=== PATIENT | female | born 1960 | race Caucasian/White ===

== ENCOUNTER → 2024-01-18 | Outpatient (CLI) | payer BC | END | disposition home or self-care (01) | LOC: LABPAT 15:57 | PROVIDERS: ATTEND Orthopaedic Surgery | DX: Z01.818 Encounter for other preprocedural examination (principal); M16.11 Unilateral primary osteoarthritis, right hip; Z22.322 Carrier or suspected carrier of Methicillin resistant Staphylococcus aureus; R94.31 Abnormal electrocardiogram [ECG] [EKG] | CPT/HCPCS: 87070; 93005 ==

== ENCOUNTER → 2024-01-31 | Outpatient (CLI) | payer BC ==
[2024-02-01 02:36] LABS: Basophils # (A) 0.12 X 10*3/uL (0.00-0.10); Basophils % (A) 0.7 %; Eosinophils % (A) 1.6 %; HCT 44.8 % (37.2-46.3); HGB 14.1 g/dL (12.0-15.0); Lymphocytes % (A) 21.2 %; MCH 30.8 pg (27.0-32.0); MCHC 31.5 g/dL (32.0-37.0); MCV 97.8 FL (80.0-97.0); Monocytes # (A) 1.07 X 10*3/uL (0.20-1.00); Monocytes % (A) 5.8 %; NRBC Per 100 WBC 0 X 10*3/uL (0.00-0.01); Neutrophils # (A) 12.94 X 10*3/uL (1.80-7.70); Neutrophils % (A) 70.3 %; Platelet Count 404 X 10*3/uL (140-440); RBC 4.58 X 10*6/uL (4.10-5.20); RDW 14.1 % (11.5-14.5)
== END | disposition home or self-care (01) ==
LOC: LABWHC1 16:05
PROVIDERS: ATTEND Nurse Practitioner Family
DX: D72.819 Decreased white blood cell count, unspecified (principal)
CPT/HCPCS: 36415; 85025

== ENCOUNTER → 2024-02-04 | Outpatient (CLI) | payer BC ==
[2024-02-04 15:16] LABS: HCT 47.9 % (37.2-46.3); HGB 15.5 g/dL (12.0-15.0); MCH 31.1 pg (27.0-32.0); MCHC 32.4 g/dL (32.0-37.0); Mean Platelet Volume 9.8 FL (9.5-12.2); NRBC Per 100 WBC 0 X 10*3/uL (0.00-0.01); Platelet Count 379 X 10*3/uL (140-440); RBC 4.99 X 10*6/uL (4.10-5.20); RDW 13.8 % (11.5-14.5); WBC 11.91 X 10*3/uL (4.50-10.00)
[2024-02-04 15:17] LABS: Basophils # (A) 0.08 X 10*3/uL (0.00-0.10); Basophils % (A) 0.7 %; Eosinophils # (A) 0.24 X 10*3/uL (0.04-0.35); Lymphocytes # (A) 2.66 X 10*3/uL (0.90-5.00); Lymphocytes % (A) 22.3 %; Monocytes # (A) 0.83 X 10*3/uL (0.20-1.00); Neutrophils # (A) 8.05 X 10*3/uL (1.80-7.70); Neutrophils % (A) 67.6 %
== END | disposition home or self-care (01) ==
LOC: LABPAT 11:09
PROVIDERS: ATTEND Orthopaedic Surgery
DX: Z01.812 Encounter for preprocedural laboratory examination (principal); M16.11 Unilateral primary osteoarthritis, right hip; D72.829 Elevated white blood cell count, unspecified
CPT/HCPCS: 85025; 86850; 86900; 86901

== ENCOUNTER 2024-02-08 10:55 | Day surgery (SDC) | payer BC ==
--- NOTE | 2024-02-07 08:17 | P.HPOR ---
History of Present Illness H&P Date: 02/07/24 Chief Complaint: Right hip pain The patient is a 63-year-old retired female presents with progressive right hip pain for the past 3 years. She has groin and thigh pain worse with weightbearing activities. She is having night symptoms. She tried medications in addition to a previous injection without much relief. She notes daily pain that limits her normal function and activities. Review of Systems As per HPI Past Medical History Past Medical History: GERD/Reflux, Osteoarthritis (OA), Skin Disorder Additional Past Medical History / Comment(s): hiatal hernia, IBS, lactose i ntolerant, psoriatic and oseoarthritis, psoriasis - no current areas, plastic prosthesis inside Rt. ear History of Any Multi-Drug Resistant Organisms: None Reported Past Surgical History: Cholecystectomy, Ear Surgery, Orthopedic Surgery, Tubal Ligation Additional Past Surgical History / Comment(s): plastic prosthesis Rt. 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 carotid, bilat. knee arthroscopy, ovarian cyst removal laproscopic, bone spur removal Lt. foot, EGD/colonoscopy Past Anesthesia/Blood Transfusion Reactions: Postoperative Nausea & Vomiting (PONV) Smoking Status: Former smoker - Past Family History Mother Family Medical History: COPD, Coronary Artery Disease (CAD) Additional Family Medical History / Comment(s): age 54 Medications and Allergies Home Medications Medication Instructions Recorded Confirmed Type Acetaminophen Tab [Tylenol Tab] 1,000 mg PO Q6HR PRN 02/04/24 02/04/24 History Albuterol Inhaler [Ventolin Hfa 1 inh INHALATION Q4H PRN 02/04/24 02/04/24 History Inhaler] Amitriptyline HCl 25 mg PO HS 02/04/24 02/04/24 History Cetirizine HCl 10 mg PO HS 02/04/24 02/04/24 History Omeprazole 20 mg PO QAM 02/04/24 02/04/24 History predniSONE 5 mg PO DAILY 02/04/24 02/04/24 History traMADol HCL 100 mg PO BID 02/04/24 02/04/24 History Allergies Allergy/AdvReac Type Severity Reaction Status Date / Time nickel Allergy Rash/Hives Verified 02/04/24 14:54 NSAIDS (Non-Steroidal AdvReac Unknown Verified 02/04/24 14:54 Anti-Inflamma Physical Examination - Hip right Gait: antalgic Tenderness with palpation: anterior Pain with motion: internal rotation and hip flexion ROM: flexion: 70 degrees ROM: internal rotation: 10 degrees (With pain) ROM: external rotation: 50 degrees Crepitus with motion: Yes Strength: flexion: 5/5 Strength: abduction: 5/5 Tests: impingement tests: positive Results Patient is a well-developed well-nourished female approximately 5 foot 7, 195 pounds of endomorphic Diehl. HEENT exam is nonfocal, neck is supple. She has painful passive motion of the right hip. Straight leg raise is negative. Clinically she has 1 cm of shortening of the right lower extremity compared to the left. Her distal neurovascular appears intact in the right lower extremity. She has an antalgic gait pattern. - Diagnostic results Hip x-ray: image reviewed (2 views of the right hip obtain the office show severe osteoarthrosis with [id number] changes along with subchondral sclerosis.) Assessment and Plan Assessment: Right hip severe osteoarthrosis Plan: I talked to the patient at length regarding her condition along with treatment options. At this point she is quite symptomatic and limited because of pain and stiffness related to her right hip osteoarthrosis despite conservative measures. After a thorough discussion she opts to proceed with surgery. We'll plan to p marbella with right total hip arthroplasty utilizing an anterior approach. Risks and benefits were discussed at length in layman's terms. We will institute DVT prophylaxis postoperatively.
[~2024-02-08 10:55] MED LIST: LIDOCAINE 1% (10MG/ML) FOR IV START INTRADERMA PRN; MELOXICAM 7.5 MG TAB PO PRN; TRANEXAMIC 1,000 MG/100ML-NACL 1,000 MG in SALINE 1 100ML.BAG IVPB PRN
[2024-02-08 11:37] LABS: Glucose,Whole Blood 104 mg/dL (70-110)
[2024-02-08] MEDS: ACETAMINOPHEN TAB 500 MG TAB PO PRN (11:40)
[2024-02-08] MEDS: LACTATED RINGERS 1,000 ML IV SCH (11:40)
[2024-02-08] MEDS: ONDANSETRON 4 MG/2 ML VIAL IVP ONE (11:40)
[2024-02-08] MEDS: IV FLUID CONTINUATION 1,000 ML IV ONE (11:40)
[2024-02-08] MEDS: DEXAMETHASONE SOD PHOSPHATE 4 MG/ML 1 ML VIAL IVP STA (11:41)
[2024-02-08] MEDS: MIDAZOLAM 2 MG/2 ML VIAL IV ONE (11:58)
[2024-02-08] MEDS: fentaNYL (PF) 50 MCG/ML 2 ML AMP IVP ONE (11:58)
--- NOTE | 2024-02-08 12:17 | P.ANPRN ---
Procedure Note - Anesthesia - Nerve Block Performed Right John Single Time Out Performed: Yes ([id number]) Date of Procedure: 02/08/24 Procedure Start Time: 11:59 Procedure Stop Time: 12:04 Location of Patient: PreOp Indication: Acute Post-Operative Pain, Requested by Surgeon Specifically requested for management of pain by DrConor: Tejinder Washington Sedation Type: Sedate with meaningful contact maintained Preparation: Sterile Prep Position: Supine Catheter: None Needle Types: Pajunk Needle Gauge: 21 Ultrasound used to visualize needle placement: Yes Ultrasound used to observe medication spread: Yes Injectate: 0.5% Ropivacaine (see comment for volume) (30cc) Blood Aspirated: No Pain Paresthesia on Injection Noted: No Resistance on Injection: Normal Image Stored and Saved: Yes Events: Uneventful and Well Tolerated
[2024-02-08] MEDS ORDERED: fentaNYL (PF) 50 MCG/ML 2 ML AMP ONE (12:42)
[2024-02-08] MEDS ORDERED: PROPOFOL 10 MG/ML 20 ML VIAL IV ONE (12:42)
[2024-02-08] MEDS ORDERED: ROPIVACAINE 5 MG/ML 30 ML VIAL ONE (12:42)
[2024-02-08] MEDS ORDERED: KETAMINE HCL IN 0.9 % NACL 50 MG/5 ML SYRINGE ONE (12:42)
[2024-02-08] MEDS ORDERED: TRANEXAMIC 1,000 MG/100ML-NACL PREMIX BAG ONE (12:42)
[2024-02-08] MEDS ORDERED: MIDAZOLAM 2 MG/2 ML VIAL ONE (12:42)
[2024-02-08] MEDS: ceFAZolin 1,000 MG in SODIUM CHLORIDE 0.9% 1,000 ML IRRIGATION ONE (13:16)
[2024-02-08] MEDS: LACTATED RINGERS 1,000 ML IV ONE (13:42)
--- NOTE | 2024-02-08 14:55 | FL ---
EXAMINATION TYPE: FL guidance operating room DATE OF EXAM: 02/08/2024 HISTORY: Fluoroscopy time Total dose area product (DAP) in uGy*m?, mGy*cm? (or similar): 3.6896 IMPRESSION: 1. Fluoroscopy time.
--- NOTE | 2024-02-08 14:56 | XR ---
EXAMINATION TYPE: XR Hip Limited RT DATE OF EXAM: 02/08/2024 COMPARISON: NONE HISTORY: Postop TECHNIQUE: 3 view submitted. FINDINGS: There is postsurgical change compatible hip replacement surgery. IMPRESSION: 1. Postoperative change.
[2024-02-08] MEDS ORDERED: HYDROcodone/APAP 5-325MG 1 EACH TAB PO PRN (15:01)
[2024-02-08] MEDS ORDERED: NALOXONE 0.4 MG/ML 1 ML VIAL IV PRN (15:01)
[2024-02-08] MEDS ORDERED: HYDROmorphone 0.5 MG/0.5 ML SYRINGE IVP PRN (15:01)
[2024-02-08] MEDS ORDERED: MAGNESIUM HYDROXIDE 2,400 MG/30 ML CUP PO PRN (15:01)
[2024-02-08] MEDS: HYDROmorphone 0.5 MG/0.5 ML SYRINGE IVP PRN (15:06)
--- NOTE | 2024-02-08 15:08 | P.OP ---
Date of Procedure: 02/08/24 Preoperative Diagnosis: Right hip severe osteoarthrosis Postoperative Diagnosis: Same Procedure(s) Performed: Right total hip arthroplastyanterior approachpress-fit Implants: [employer] size 2 lateral press-fit Polar femoral stem, 36+0 Oxinium femoral head, 50 mm acetabular shell with neutral polyethylene liner. Anesthesia: spinal Surgeon: Tejinder Washington Breakfast Manager #1: Pk Thapa Estimated Blood Loss (ml): 50 Pathology: none sent Condition: stable Disposition: PACU Indications for Procedure: The patient is a 63-year-old female who presents with progressive right hip pain secondary to osteoarthrosis despite conservative measures. A discussion of the risks and benefits of operative intervention versus continued conservative measures made with the patient. She opted proceed with surgery. Operative risks include infection, neurovascular injury, development of blood clots, fracture, leg length discrepancy, possible instability, possible component loosening/failure and possible need for subsequent procedures was discussed. Informed consent was obtained. Operative Findings: As below Description of Procedure: The patient was brought to the operating room, and after induction of spinal anesthesia was placed supine on the Donna table. Positioning was checked with fluoroscopy. The right hip was then prepped and draped in a normal fashion. A 12 cm incision was then made starting 2 fingerbreadths distal and 3 finger breaths posterior to the ASIS in line with the proximal femur. The skin was incised sharply. Subcutaneous tissues were divided sharply. Electrocautery was used for hemostasis. The fascia was split in line with skin incision. The interval between the sartorius and tensor fascia mariajose was then bluntly developed. The posterior fascia was opened with electrocautery. The lateral circumflex vessels were identified and cauterized prior to sectioning. A retractor was placed along the superior femoral neck as well as the anterior acetabular rim. A wide capsulotomy was performed. The neck cut was then made at a 45 angle to the shaft approximately 1 1/2 cm above the level of the lesser trochanter. The head was extracted. Attention was then paid towards preparing the acetabular. Anterior and posterior retractors were placed. The remaining capsular labral tissue sharply debrided clearly defining the acetabular margins. I began reaming with a 47 mm reamer taking care to initially medialize then reaming at 45 of abduction and 20 of anteversion. Sequential reaming is performed up to 50 mm. A trial 50 mm acetabular shell was inserted in the same orientation and was fully seated. There was good rim fit and stability. Positioning was checked with fluoroscopy. The final 50 mm acetabular shell was inserted again at 45 of abduction and 20 of anteversion. This was fully seated. There was good rim fit and stability. Again fluoroscopy was used to check the adequacy of placement. A neutral polyethylene liner was gently impacted. Care was taken to avoid any soft tissue interposition. Pulsatile lavage was utilized. Attention was then paid towards preparing the proximal femur. The central region was cleared of soft tissue. A canal finder was used to find the femoral canal. Sequential broaching was performed up to size 2 taking care to lateralize proximally. A calcar mill was used to fashion the medial calcar. There was good rotational stability. A lateral neck along with a 32 mm +0 head was placed. The hip was gently reduced. Fluoroscopy was used to check the adequacy of positioning along with leg lengths. I felt both were good. The hip was gently dislocated. The trial components were removed. The final size 2 collared lateral press-fit femoral stem was inserted parallel to the posterior cortex. This was fully seated and there was good rotational stability. A 32 mm +0 femoral head was placed. This was gently impacted. The hip was then gently reduced. Final fluoroscopic view showed adequate placement implant along with baptist of leg length. Stability was checked with 80 of external rotation and 60 of extension of the right hip. The wound was irrigated with sterile lavage. The fascia was closed with running 0 Vicryl suture. There was minimal drainage therefore a deep drain was not placed. The second dose of IV TXA was given. The subcutaneous tissues were reapproximated interrupted 2-0 Vicryl sutures. The skin was reapproximated with 3-0 subcuticular strata fix suture. Skin tape and adhesive was applied. A sterile dressing was applied. The patient was then awoken from sedation and transferred to recovery room in good condition. Blood loss was estimated at 250 mL. No complications were incurred. Sponge and needle counts were correct at the end of the case. Pk CRUZ assisted during the major components is case to include exposure, bone resection, implantation, and closure.
--- NOTE | 2024-02-08 15:25 | XR ---
EXAMINATION TYPE: XR Hip Limited RT DATE OF EXAM: 02/08/2024 COMPARISON: NONE HISTORY: Postop TECHNIQUE: One view submitted. FINDINGS: There is postsurgical change compatible hip replacement surgery. IMPRESSION: 1. Postoperative change.
[2024-02-08] MEDS ORDERED: ALBUTEROL HFA INHALER INHALATION PRN (16:51)
--- NOTE | 2024-02-08 16:52 | P.CONS ---
History of Present Illness - Reason for Consult Consult date: 02/08/24 Medical Management Requesting physician: Tejinder Washington - History of Present Illness History of Presenting Illness: Patient is a pleasant 63-year-old female with a past medical history of GERD, Warthin's tumor status post removal of left parotid and osteoarthritis. She is currently admitted under orthopedic surgery team status post elective right total hip arthroplasty. Surgical procedure was completed by Dr. Washington. We were consulted for medical management throughout hospitalization. Patient seen and fully evaluated at bedside in room 455 upon completion of surgical procedure. Patient currently reports controlled postoperative pain and denies having any nausea or vomiting. She denies having any other complaints including headache, lightheadedness, dizziness, chest pain, palpitations, shortness of breath, or experiencing any numbness/tingling/weakness. Patient does report having muscle spasms in the right thigh. Review of systems: Pertinent positives and negatives as discussed in HPI, a complete review of systems was performed and all other systems are negative. Physical exam: Vital signs reviewed and stable. General: Nontoxic, no distress and appears stated age. Derm: Skin warm and dry, normal coloration for ethnicity. Head: Atraumatic, normocephalic and symmetric. Eyes: EOMs intact, no lid lag, and anicteric sclera Mouth: no lip lesions, mucus membranes moist Cardiovascular: regular rate and rhythm with normal S1S2, no murmur, positive posterior tibial pulses bilaterally, and cap refill < 2 seconds. Lungs: Respirations even, regular, and unlabored on room air. Lungs CTA bilaterally, no rhonchi, no rales, no wheezing, and no accessory muscle usage. Abdominal: soft, nontender to palpation, no guarding, no appreciable organomega ly Ext: Movement and sensation intact. No gross muscle atrophy, no edema, no contractures Neuro: Speech clear, face symmetrical and CN II-XII grossly intact with no noted focal neuro deficits Psych: Alert and oriented to person, place, time, and situation. Appropriate and pleasant affect. Assessment and Plan of Care: Postoperative pain/muscle spasms Order placed for Norflex 60 mg IVP x 1 dose. Status post right total hip arthroplasty Management per primary admitting orthopedic surgery team including DVT prophylaxis, pain management, wound/dressing management, weightbearing, and PT/OT. GERD Continue daily medication regimen with omeprazole 20 mg daily. Data and imaging reviewed Reviewed operative report. Reviewed preoperative labs completed 02/04/2024 showing a WBC count of 11.91, hemoglobin 15.5, platelet count of 379,000. Vital signs reviewed and stable. Blood pressure 139/78, heart rate 71, respiratory rate 14, and SpO2 of 90% on 2 L. Thank you for allowing us to participate in the care of this pleasant patient. Do not hesitate to contact us with questions. Someone can be reached from the [facility] hospitalist group all hours of the day at [phone] or via [employer]. Patient was seen independently by Nurse Practitioner. This document was prepared using [employer] dictation software. Please allow for errors in ict development manager while rare they do occur. Past Medical History Past Medical History: GERD/Reflux, Osteoarthritis (OA), Skin Disorder Additional Past Medical History / Comment(s): hiatal hernia, IBS, lactose intolerant, psoriatic and oseoarthritis, psoriasis - no current areas, plastic prosthesis inside Rt. ear History of Any Multi-Drug Resistant Organisms: None Reported Past Surgical History: Cholecystectomy, Ear Surgery, Orthopedic Surgery, Tubal Ligation Additional Past Surgical History / Comment(s): plastic prosthesis Rt. 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 carotid, bilat. knee arthroscopy, ovarian cyst removal laproscopic, bone spur removal Lt. foot, EGD/colonoscopy Past Anesthesia/Blood Transfusion Reactions: Postoperative Nausea & Vomiting (PONV) Smoking Status: Former smoker - Past Family History Mother Family Medical History: COPD, Coronary Artery Disease (CAD) Additional Family Medical History / Comment(s): age 54 Medications and Allergies Home Medications Medication Instructions Recorded Confirmed Type Acetaminophen Tab [Tylenol Tab] 1,000 mg PO Q6HR PRN 02/04/24 02/08/24 History Albuterol Inhaler [Ventolin Hfa 1 inh INHALATION Q4H PRN 02/04/24 02/08/24 History Inhaler] Amitriptyline HCl 25 mg PO HS 02/04/24 02/08/24 History Cetirizine HCl 10 mg PO HS 02/04/24 02/08/24 History Omeprazole 20 mg PO QAM 02/04/24 02/08/24 History predniSONE 5 mg PO DAILY 02/04/24 02/08/24 History traMADol HCL 100 mg PO BID 02/04/24 02/08/24 History Allergies Allergy/AdvReac Type Severity Reaction Status Date / Time nickel Allergy Rash/Hives Verified 02/08/24 11:25 NSAIDS (Non-Steroidal AdvReac Unknown Verified 02/08/24 11:25 Anti-Inflamma Physical Exam Vitals: Vital Signs Temp Pulse Resp BP Pulse Ox 02/08/24 16:15 71 14 139/78 98 02/08/24 16:00 75 14 124/60 97 02/08/24 15:45 77 14 124/60 98 02/08/24 15:30 77 14 111/68 98 02/08/24 15:15 76 14 122/75 100 02/08/24 15:00 97.2 F L 78 12 113/64 95 02/08/24 12:06 79 14 106/55 94 L 02/08/24 11:37 97.7 F 101 H 16 165/73 94 L Intake and Output 02/08/24 02/08/24 02/08/24 06:59 14:59 22:59 Intake Total 1051 200 Output Total 250 Balance 801 200 Intake: IV 1051 200 Output: Estimated Blood Loss 250 Other: Weight 85.5 kg
[2024-02-08] MEDS: ORPHENADRINE 30 MG/ML 2 ML VIAL IVP STA (17:11)
[2024-02-08] MEDS: HYDROmorphone 1 MG/ML 1 ML SYRINGE IVP PRN (18:12)
[2024-02-08] MEDS: LORATADINE 10 MG TAB PO SCH (20:45)
[2024-02-08] MEDS: HYDROcodone/APAP 7.5-325MG 1 EACH TAB PO PRN (20:47)
[2024-02-08] MEDS: AMITRIPTYLINE HCL 25 MG TAB PO SCH (20:47)
[2024-02-08] MEDS: SENNOSIDES-DOCUSATE SODIUM 1 EACH TAB PO SCH (20:47)
[2024-02-08] MEDS: CYCLOBENZAPRINE 5 MG TAB PO PRN (23:31)
[2024-02-09 07:47] VITALS: BP 114/62; PULSE 74; RESP 19; TEMP 98.2
[2024-02-09] MEDS: PANTOPRAZOLE 40 MG TABLET PO SCH (08:28)
[2024-02-09] MEDS: RIVAROXABAN 10 MG TAB PO SCH (08:28)
[2024-02-09 10:36] LABS: HGB 11.6 g/dL (12.0-15.0); MCH 30.5 pg (27.0-32.0); MCHC 32.2 g/dL (32.0-37.0); MCV 94.7 FL (80.0-97.0); Mean Platelet Volume 9.8 FL (9.5-12.2); NRBC Per 100 WBC 0 X 10*3/uL (0.00-0.01); Platelet Count 408 X 10*3/uL (140-440); RDW 13.7 % (11.5-14.5); WBC 21.29 X 10*3/uL (4.50-10.00)
[2024-02-09 10:37] LABS: Basophils # (A) 0.06 X 10*3/uL (0.00-0.10); Basophils % (A) 0.3 %; Eosinophils # (A) 0.04 X 10*3/uL (0.04-0.35); Eosinophils % (A) 0.2 %; Lymphocytes # (A) 2.95 X 10*3/uL (0.90-5.00); Lymphocytes % (A) 13.9 %; Monocytes # (A) 1.27 X 10*3/uL (0.20-1.00); Neutrophils # (A) 16.82 X 10*3/uL (1.80-7.70); Neutrophils % (A) 78.9 %
--- NOTE | 2024-02-09 11:20 | P.DS ---
Providers Date of admission: 02/08/2024 Expected date of discharge: 02/09/24 Attending physician: Tejinder Washington Consults: 02/08/24 15:01 Consult Physician Routine Consulting Provider: Aldo Guthrie Consult Reason/Comments: s/p direct anterior right total hip arthroplasty Do you want consulting provider notified?: Yes Primary care physician: Sosa [facility] Course: Date of admission: 02/08/2024 Date of discharge: 02/09/2024 Admission diagnosis: Right hip osteoarthritis Discharge diagnosis: Same Attending physician: Dr. Washington Surgical procedures: Direct anterior right al hip arthroplasty Brief history: Patient is a 63-year-old female with a history of progressive primary right hip osteoarthritis. At this point patient has failed conservative treatment measures and has opted to proceed with a elective direct anterior right total hip arthroplasty. Hospital course: Details of patient's surgery can be found in operative report. Patient tolerated the procedure well and was subsequently transported to orthopedic floor. Patient's orthopeidc and medical care was provided daily. Patient had daily laboratory tests performed for evaluation of overall blood counts. Patient had daily physical therapy to include strengthening range of motion as well as education with walker ambulation. Patient was treated with Xarelto for their postoperative DVT prophylaxis during their inpatient stay. Patient was noted to have a relatively uneventful postoperative course. Patient reported satisfactory pain control with oral pain medications by postoperative day 1. Patient showed satisfactory progress with physical therapy. Patient moved steadily through the program and had no difficulty meeting the goals by postoperative day 1. Given patient's otherwise satisfactory course and having met physical therapy goals, plan is to discharge patient home with health services on postoperative day 1. Discharge condition/disposition: Patient will be discharged home with health services in stable condition. Discharge medications: Instructions are given on resumption of patient's normal daily medications per primary care recommendation, in addition patient will be prescribed Bourg; senna; Eliquis 2.5 mg twice a day 2 weeks; Flexeril Discharge instructions: 1. Wound care and infection precautions, keep incision dry and covered while showering, no lotions, creams, moisturizers. No soaking, tubs, pools, hottubs. Do not scrub over the incision. 2. Weight-bear as tolerated with walker / cane until follow-up. 3. Ice and elevate when necessary. Do not exceed 20 minutes per hour with ice pack. 4. Utilize compression sleeve until seen at first follow up appointment. 5. Visiting nursing care. 6. Home physical therapy. 7. Pain meds and anticoagulants per prescription. 8. Pain medication has potential to cause constipation. Increase oral fluid and fiber intake. Contact primary care provider if you have not had a bowel movement within 48 hours after discharge 9. No anti-inflammatory medication until discussed at first post operative visit, this including Motrin, Aleve, Mobic, Diclofenac. 10. Follow up in office at 2 weeks postop with Clint Mtz PA-C / Pk Thapa PA-C 11. Follow up with your primary care doctor 7-10 days after discharge. 12. Contact [facility] with any questions, . Assessment: Right hip osteoarthritis Procedures: Direct anterior right total hip arthroplasty Patient Condition at Discharge: Good Plan - Discharge Summary Discharge Rx Participant: No New Discharge Prescriptions: New Apixaban [Eliquis] 2.5 mg PO BID #60 tab Cyclobenzaprine [Flexeril] 5 mg PO TID #21 tablet HYDROcodone/APAP 7.5-325MG [Bourg 7.5-325] 1 - 2 tab PO Q6HR PRN #32 tab PRN Reason: Pain Sennosides/Docusate Sodium [Senna Plus 8.6-50 mg Softgel] 1 each PO DAILY #20 capsule No Action predniSONE 5 mg PO DAILY Omeprazole 20 mg PO QAM Amitriptyline HCl 25 mg PO HS Albuterol Inhaler [Ventolin Hfa Inhaler] 1 inh INHALATION Q4H PRN PRN Reason: Wheezing traMADol HCL 100 mg PO BID Cetirizine HCl 10 mg PO HS Acetaminophen Tab [Tylenol Tab] 1,000 mg PO Q6HR PRN PRN Reason: Pain Discharge Medication List Acetaminophen Tab [Tylenol Tab] 1,000 mg PO Q6HR PRN 02/04/24 [History] Albuterol Inhaler [Ventolin Hfa Inhaler] 1 inh INHALATION Q4H PRN 02/04/24 [History] Amitriptyline HCl 25 mg PO HS 02/04/24 [History] Cetirizine HCl 10 mg PO HS 02/04/24 [History] Omeprazole 20 mg PO QAM 02/04/24 [History] predniSONE 5 mg PO DAILY 02/04/24 [History] traMADol HCL 100 mg PO BID 02/04/24 [History] Apixaban [Eliquis] 2.5 mg PO BID #60 tab 02/09/24 [Rx] Cyclobenzaprine [Flexeril] 5 mg PO TID #21 tablet 02/09/24 [Rx] HYDROcodone/APAP 7.5-325MG [Bourg 7.5-325] 1 - 2 tab PO Q6HR PRN #32 tab 02/09/24 [Rx] Sennosides/Docusate Sodium [Senna Plus 8.6-50 mg Softgel] 1 each PO DAILY #20 capsule 02/09/24 [Rx] Follow up Appointment(s)/Referral(s): Pk Thapa PAC [PHYSICIAN EXPLOSIVE OPERATOR FUSE] - 02/24/24 8:50 am [facility], [NON-STAFF] - 1-2 Days ([facility] will call you to schedule your in home physical therapy and nursing visits. ) Patient Instructions/Handouts: Anterior Hip Replacement (DC), Anterior Hip Replacement (GEN) Activity/Diet/Wound Care/Special Instructions: Orthopedic Discharge Instructions: 1. Wound care and infection precautions, keep incision dry and covered while showering, no lotions, creams, moisturizers. No soaking, pools, hot tubs. Do not scrub over incision. 2. Weight-bear as tolerated with walker / cane until follow-up. 3. Ice and elevate when necessary. Do not exceed 20 minutes per hour with ice pack. 4. Utilize compression sleeve until seen at first follow up appointment. 5. Pain meds and anticoagulants per prescription. 6. Pain medication has potential to cause constipation. Increase oral fluid and fiber intake. Contact primary care provider if you have not had a bowel movement within 48 hours after discharge. 7. No anti-inflammatory medication until discussed at first post operative visit, this including Motrin, Aleve, Mobic, Diclofenac. 8. Follow up in office at 2 weeks postop with Clint Mtz PA-C / Pk Thapa PA-C 9. Follow up with your primary care doctor 7-10 days after discharge. 10. Contact [facility] with any questions, . Keep incision clean, dry, intact. While showering, cover fusion tape with Saran wrap. Keep fusion tape on until follow-up appointment in office in 2 weeks Discharge Disposition: HOME WITH HOME HEALTH SERVICES
--- NOTE | 2024-02-09 11:28 | P.PN ---
Subjective Progress Note Date: 02/09/24 Principal diagnosis: Right hip osteoarthritis Patient seen at bedside this morning lying semirecumbent position with dressing present over right hip. was present during, or. Patient says overnight she walked down the hallway couple times and did walk out the hallway this morning with therapy and up-and-down stairs. Patient says she does need a walker with wheels for home. Patient states she does have a few steps going into her home. Patient says she has urinated since surgery yesterday without issue. She has not had bowel movement yet, but she has been passing gas. Patient denies chest pain, fever shortness breath, nausea, vomiting, change in vision, loss of bowel/bladder control. Objective - Vital Signs Vital signs: Vital Signs Temp 98.2 F 02/09/24 07:00 Pulse 74 02/09/24 07:00 Resp 19 02/09/24 07:00 BP 114/62 02/09/24 07:00 Pulse Ox 95 02/09/24 08:02 FiO2 Intake & Output 02/08/24 02/09/24 02/09/24 18:59 06:59 18:59 Intake Total 1251 Output Total 250 Balance 1001 Weight 85.5 kg Intake: IV 1251 Output: Estimated Blood Loss 250 Other: Voiding Method Toilet Toilet # Voids 1 2 - Exam Right hip: Incision is clean, dry, and intact. The exofin fusion tape is in good condition. There is minimal soft tissue swelling and ecchymosis surrounding the medial and lateral aspects of the incision. Calf is soft, no tenderness with palpation. Plantar flexion, dorsiflexion, EHL, FHL are intact. Sensory exam to light touch throughout the extremity is intact, dorsal pedis pulses 2+. - Labs CBC & Chem 7: 02/09/24 06:50 Labs: Abnormal Lab Results - Last 24 Hours (Table) 02/09/24 Range/Units 06:50 WBC 21.29 H (4.50-10.00) X 10*3/uL RBC 3.80 L (4.10-5.20) X 10*6/uL Hgb 11.6 L (12.0-15.0) g/dL Hct 36.0 L (37.2-46.3) % Immature Gran # 0.15 H (0.00-0.04) X 10*3/uL Neutrophils # 16.82 H (1.80-7.70) X 10*3/uL Monocytes # 1.27 H (0.20-1.00) X 10*3/uL Assessment and Plan Assessment: 1. Right hip osteoarthritis - Postop day 1 status post direct anterior right total hip arthroplasty Plan: 1. Right hip osteoarthritis - direct anterior right total hip arthroplasty performed yesterday, 02/08/2020. Patient at bedside with dressing present over right hip. Patient did do well with therapy and walk to the saenz and up-and-down stairs. Patient does have a walker for home. Pain medication as needed. Weightbearing as tolerated with walker. Discharge home today with health services. 2. Appreciate medical management 3. Pain management - norco; flexeril 4. DVT prophylaxis - Xarelto in hospital. Going home with eliquis BID x 2 weeks 5. GI ppx - senna 6. PT/OT - WBAT w/walker 7. Encourage incentive spirometer use 8. Discharge planning - home today with health services Time with Patient: Less than 30
--- NOTE | 2024-02-09 15:39 | P.PN ---
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 She is currently admitted under orthopedic surgery team status post elective right total hip arthroplasty. Surgical procedure was completed by Dr. Washington. We were consulted for medical management throughout hospitalization. Physical exam: Vital signs reviewed and stable. General: Nontoxic, no distress and appears stated age. Derm: Skin warm and dry, normal coloration for ethnicity. Head: Atraumatic, normocephalic and symmetric. Eyes: EOMs intact, no lid lag, and anicteric sclera Mouth: no lip lesions, mucus membranes moist Cardiovascular: regular rate and rhythm with normal S1S2, no murmur, positive posterior tibial pulses bilaterally, and cap refill < 2 seconds. Lungs: Respirations even, regular, and unlabored on room air. Lungs CTA bilaterally, no rhonchi, no rales, no wheezing, and no accessory muscle usage. Abdominal: soft, nontender to palpation, no guarding, no appreciable organomegaly Ext: Movement and sensation intact. No gross muscle atrophy, no edema, no contractures Neuro: Speech clear, face symmetrical and CN II-XII grossly intact with no noted focal neuro deficits Psych: Alert and oriented to person, place, time, and situation. Appropriate and pleasant affect. Assessment and Plan of Care: Postoperative pain/muscle spasms Order placed for Norflex 60 mg IVP x 1 dose. Postoperative Leukocytosis WBC count 21.29, no signs of infection this is likely reactive secondary to surgical procedure. Status post right total hip arthroplasty Management per primary admitting orthopedic surgery team including DVT prophylaxis, pain management, wound/dressing management, weightbearing, and PT/OT. GERD Continue daily medication regimen with omeprazole 20 mg daily. Data and imaging reviewed: Morning labs reviewed. CBC showing leukocytosis with WBC count of 21.29 and acute postoperative blood loss anemia with hemoglobin of 11.6. Vital signs reviewed. Blood pressure 114/62, heart rate 74, respiratory rate 19, temp 98.2 F, and SpO2 of 93% on room air. Thank you for allowing us to participate in the care of this pleasant patient. Do not hesitate to contact us with questions. Someone can be reached from the [facility] hospitalist group all hours of the day at [phone] or via perfect serve. Patient was seen independently by Nurse Practitioner. This document was prepared using [employer] dictation software. Please allow for errors in net application support specialist while rare they do occur. Objective - Vital Signs Vital signs: Vital Signs Temp 98.2 F 02/09/24 07:00 Pulse 74 02/09/24 07:00 Resp 19 02/09/24 07:00 BP 114/62 02/09/24 07:00 Pulse Ox 95 02/09/24 08:02 FiO2 Intake & Output 02/08/24 02/09/24 02/09/24 18:59 06:59 18:59 Intake Total 1251 Output Total 250 Balance 1001 Weight 85.5 kg Intake: IV 1251 Output: Estimated Blood Loss 250 Other: Voiding Method Toilet # Voids 1 2 - Labs CBC & Chem 7: 02/09/24 06:50
== END 2024-02-09 13:11 | disposition home health service (06) ==
LOC: OR 10:55 → 4SSUR 14:55 → OR 02-09 13:11
PROVIDERS: ATTEND Orthopaedic Surgery
DX: M16.11 Unilateral primary osteoarthritis, right hip (principal); G89.18 Other acute postprocedural pain; M79.7 Fibromyalgia; J44.9 Chronic obstructive pulmonary disease, unspecified; K21.9 Gastro-esophageal reflux disease without esophagitis; L40.50 Arthropathic psoriasis, unspecified; Z91.09 Other allergy status, other than to drugs and biological substances; F17.210 Nicotine dependence, cigarettes, uncomplicated; Z88.6 Allergy status to analgesic agent; Z79.1 Long term (current) use of non-steroidal anti-inflammatories (NSAID); Z79.52 Long term (current) use of systemic steroids; Z79.899 Other long term (current) drug therapy; Z79.01 Long term (current) use of anticoagulants
CPT/HCPCS: 94760; 97162; 97166; 64447; 85025; 73501; 27130; C1776; J2250; J1100; J2360; J0690 ×2; J2405; J3010; J1170 ×3

== ENCOUNTER 2024-07-13 14:54 | Inpatient (IN) | payer BC, OTHER ==
--- NOTE | 2024-07-13 16:37 | ED ---
General Adult HPI - General Chief complaint: Shortness of Breath Stated complaint: COPD, pneumonia Time Seen by Provider: 07/13/24 15:32 Source: patient Mode of arrival: ambulatory Limitations: no limitations - History of Present Illness Initial comments: Patient is a pleasant 63 y/o female presenting today for productive cough and shortness of breath x approx 2 months. States that started having URI symptoms May 12 just as she was finishing physical therapy from a hip surgery this summer. Had nasal congestion and cough and was ultimately started doxycycline and steroids by her PCP. Her symptoms improved somewhat after completing steroids however shortly after that returned again consisting of a cough productive of greenish phlegm and shortness of breath with ambulation. She was then put on azithromycin and another steroid course. Symptoms persisted beyond this and she was then put on levofloxacin and a third course of steroids. Sta johnnie that her cough will briefly improve with steroid ministration however after completing the steroids will return. It has been keeping her up at night. Endorses exertional shortness of breath and endorses some discomfort a couple top of her chest with coughing but otherwise denies chest pain. Denies history of cancer, she is a prior smoker though no longer, recently having quit in the last 2 months. No history of prior PE/DVT. No recent travel surgeries or hospitalizations. No lower extremity swelling. No history of CAD. No fevers. No abdominal pain. No sore throat. - Related Data Home Medications Medication Instructions Recorded Confirmed Albuterol Inhaler [Ventolin Hfa 2 puff INHALATION RT-Q4H PRN 02/04/24 07/13/24 Inhaler] Amitriptyline HCl 25 mg PO HS 02/04/24 07/13/24 Cetirizine HCl 10 mg PO HS 02/04/24 07/13/24 Omeprazole 20 mg PO DAILY 02/04/24 07/13/24 traMADol HCL 50 mg PO TID PRN 02/04/24 07/13/24 Ipratropium-Albuterol Nebulize 3 ml INHALATION RT-QID PRN 07/13/24 07/13/24 [Duoneb 0.5 mg-3 mg/3 ml Soln] L.acidoph,Paracasei, B.lactis 1 cap PO HS 07/13/24 07/13/24 [Probiotic] Umeclidinium Brm/Vilanterol Tr 1 puff INHALATION RT-DAILY 07/13/24 07/13/24 [Anoro Ellipta 62.5-25 Mcg INH] Allergies Allergy/AdvReac Type Severity Reaction Status Date / Time lactose Allergy Unknown Verified 07/13/24 17:22 mold Allergy Unknown Verified 07/13/24 17:22 nickel Allergy Rash/Hives Verified 07/13/24 17:22 NSAIDS (Non-Steroidal AdvReac Unknown Verified 07/13/24 17:22 Anti-Inflamma dust Allergy Unknown Uncoded 07/13/24 15:04 Review of Systems ROS Statement: Those systems with pertinent positive or pertinent negative responses have been documented in the HPI. ROS Other: All systems not noted in ROS Statement are negative. Past Medical History Past Medical History: COPD, GERD/Reflux, Pneumonia Additional Past Medical History / Comment(s): psoriatic arthritis Past Surgical History: Joint Replacement Additional Past Surgical History / Comment(s): R hip replacement January 2024 Smoking Status: Current some day smoker Past Alcohol Use History: Rare Past Drug Use History: None Reported General Exam - General Exam Comments Initial Comments: PE: CONSTITUTIONAL: No apparent distress, ill-appearing, nontoxic SKIN: Warm, dry, no jaundice, hives or petechiae EYES: Pupils are equally round, extraocular movements intact without nystagmus, clear conjunctiva, non-icteric sclera HENT: Normocephalic, atraumatic, moist mucus membranes, oropharynx clear without exudates NECK: , Full range of motion, normal appearance PULMONARY: Rhonchi and rales in the right mid and upper lung yip, no wheezes or crackles, normal excursion no accessory muscle use or stridor CARDIOVASCULAR: Tachycardia, regular rate, rhythm, normal S1 and S2. No appreciated murmurs, rubs or gallops. Strong radial pulses with intact distal perfusion. No lower extremity edema GASTROINTESTINAL: Soft, active bowel sounds throughout, non-tender, non-distended, no palpable masses, no rebound or guarding. No hepatosplenomegaly MUSCULOSKELETAL: Extremities have no gross deformity, no edema, redness, or swelling. No calf swelling NEUROLOGIC:_a/o x 3, GCS 15, normal mentation and speech. Moves all extremities x 4 without motor or sensory deficit PSYCHIATRIC:_normal mood and affect, thought process is clear and linear Limitations: no limitations Course Vital Signs 07/13/24 07/13/2424 15:05 16:41 16:53 Temperature 98.1 F Pulse Rate 108 H 93 105 H Respiratory 26 H Rate Blood Pressure 103/57 O2 Sat by Pulse 100 Oximetry 07/13/24 07/13/24 07/13/24 17:00 18:15 19:31 Temperature Pulse Rate 105 H 84 97 Respiratory 18 20 20 Rate Blood Pressure 110/70 130/60 102/76 O2 Sat by Pulse 100 97 Oximetry 07/13/24 07/13/24 07/13/24 20:00 21:00 22:00 Temperature Pulse Rate 100 97 96 Respiratory 20 20 20 Rate Blood Pressure 116/60 130/70 137/70 O2 Sat by Pulse 94 L 96 96 Oximetry 07/13/24 07/14/24 23:00 00:00 Temperature Pulse Rate 76 79 Respiratory 18 18 Rate Blood Pressure 128/67 123/67 O2 Sat by Pulse 97 96 Oximetry EKG Findings - EKG Comments: EKG Findings:: Sinus rhythm, rate 96 bpm, KS interval 144 ms, QRS duration 84 ms, QT/QTc 317/370 ms, normal axis, T wave inversion lead V1, V2, no clear ST elevations or depressions, artifact present limiting assessment no STEMI Medical Decision Making - Medical Decision Making Was pt. sent in by a medical professional or institution (, PA, LOAN OFFICER ASSISTANT, urgent care, hospital, or [facility]...) When possible be specific @ -No Did you speak to anyone other than the patient for history (EMS, parent, family, police, friend...)? What history was obtained from this source @ -No Did you review nursing and triage notes (agree or disagree)? Why? @ -I reviewed nursing and triage notes-patient endorses to me chest pressure across the top of her chest with coughing but did not endorse radiation to sh oulder blades Were old charts reviewed (outside hosp., previous admission, EMS record, old EKG, old radiological studies, urgent care reports/EKG's, [facility] records)? Report findings Medical records reviewed patient had chest x-ray performed on 06/29/2024 that did not show any acute cardiopulmonary process, no pleural effusions or consolidations Differential Diagnosis (chest pain, altered mental status, abdominal pain women, abdominal pain men, vaginal bleeding, weakness, fever, dyspnea, syncope, headache, dizziness, GI bleed, back pain, seizure, CVA, palpatations, mental health, musculoskeletal)? @ -Differential Dyspnea: Coronary syndrome, arrhythmia, tamponade, asthma, COPD, pulmonary embolism, pneumonia, pneumothorax, pulmonary effusion, anaphylaxis, diabetic ketoacidosis, flailed chest, pulmonary contusion, diaphragmatic rupture, anemia, neuromuscular, this is not meant to be an all-inclusive list. EKG interpreted by me (3pts min.). @ -As above X-rays interpreted by me (1pt min.). @ -None done CT interpreted by me (1pt min.). @Right upper lobe mass, no consolidations or pleural effusions U/S interpreted by me (1pt. min.). @ -None done What testing was considered but not performed or refused? (CT, X-rays, U/S, labs)? Why? @ -None What meds were considered but not given or refused? Why? @ -None Did you discuss the management of the patient with other professionals (frankie stafford i.e. , PA, LOAN OFFICER ASSISTANT, lab, RT, psych nurse, social staff worker, program arranger, teacher, correctional program officer, manager rn case)? Give summary @ -No Was smoking cessation discussed for >3mins.? @ -No Was critical care preformed (if so, how long)? Yes, 35 minutes Were there social determinants of health that impacted care today? How? (Homelessness, low income, unemployed, alcoholism, drug addiction, transportati on, low edu. Level, literacy, decrease access to med. care, half-way, rehab)? @ -No Was there de-escalation of care discussed even if they declined (Discuss DNR or withdrawal of care, Hospice)? @ -No What co-morbidities impacted this encounter? (DM, HTN, Smoking, COPD, CAD, Cancer, CVA, ARF, Chemo, Hep., AIDS, mental health diagnosis, sleep apnea, morbid obesity)? Prior smoker, COPD Was patient admitted / discharged? Hospital course, mention meds given and route, prescriptions, significant lab abnormalities, going to OR and other pertinent info. @Admission-this 63-year-old female history of COPD prior smoker presenting for persistent cough and shortness of breath despite 3 different courses of antibiotics and steroids. Patient tachycardic on arrival with coarse breath sounds in the right upper and right mid lung yip. Due to tachycardia and persistent shortness of breath despite multiple courses of antibiotics, concern for pulmonary embolism in addition to differential as above. CT PE study ordered, comprehensive labs, antibiotics including sepsis bundle. 1 Ltr normal saline ordered as patient normotensive and nontoxic appearring. Anticipate admission for failed outpatient treatment of pneumonia CT shows mediastinal mass concerning for neoplasm. Labs significant white blood cell count 40.6, lactic 2.3. She does meet criteria for severe sepsis, though these findings may also be 2/2 likely neoplastic mass. Patient did not receive full 30 cc/kg bolus as though she is ill appearing, is non toxic, no hypotension. I reassessed the patient. I discussed with her CT scan findings regarding mediastinal mass and concern for cancerous lesion. I discussed with her plan for admission for further workup. All questions were answered. Case discussed with sharona Olivia, who kindly accepts patient for admission. Undiagnosed new problem with uncertain prognosis? @ -Yes, possible neoplasm on CT Drug Therapy requiring intensive monitoring for toxicity (Heparin, Nitro, Insulin, Cardizem)? @ -No Were any procedures done? @ -No Diagnosis/symptom? @ Severe sepsis, mediastinal mass Acute, or Chronic, or Acute on Chronic? @acute Uncomplicated (without systemic symptoms) or Complicated (systemic symptoms)? complicated Side effects of treatment? @ -No Exacerbation, Progression, or Severe Exacerbation? @ -No Poses a threat to life or bodily function? How? (Chest pain, [place], [place], pneumonia, PE, COPD, DKA, ARF, appy, cholecystitis, CVA, Diverticulitis, Homicidal, Suicida l, threat to staff... and all critical care pts) Yes - Lab Data Result diagrams: 07/13/24 16:19 07/13/24 16:19 Lab Results 07/13/24 07/13/24 07/13/24 Range/Units 16:19 16:19 16:19 WBC 40.6 H (3.8-10.6) k/uL RBC 4.25 (3.80-5.40) m/uL Hgb 12.0 (11.4-16.0) gm/dL Hct 37.6 (34.0-46.0) % MCV 88.5 (80.0-100.0) fL MCH 28.3 (25.0-35.0) pg MCHC 32.0 (31.0-37.0) g/dL RDW 15.7 H (11.5-15.5) % Plt Count 547 H (150-450) k/uL MPV 7.6 Neutrophils % (Manual) 82 % Lymphocytes % (Manual) 14 % Eosinophils % (Manual) 4 % Neutrophils # (Manual) 33.29 H (1.3-7.7) k/uL Lymphocytes # (Manual) 5.68 H (1.0-4.8) k/uL Eosinophils # (Manual) 1.62 H (0-0.7) k/uL Nucleated RBCs 0 (0-0) /100 WBC Manual Slide Review Performed PT 11.2 (10.0-12.5) sec INR 1.0 (<1.2) APTT 20.3 L (22.0-30.0) sec Sodium 139 (137-145) mmol/L Potassium 3.5 (3.5-5.1) mmol/L Chloride 104 (98-107) mmol/L Carbon Dioxide 25 (22-30) mmol/L Anion Gap 10 mmol/L BUN 19 H (7-17) mg/dL Creatinine 0.84 (0.52-1.04) mg/dL Est GFR (CKD-EPI)AfAm 85 (>60 ml/min/1.73 sqM) Est GFR (CKD-EPI)NonAf 74 (>60 ml/min/1.73 sqM) Glucose 115 H (74-99) mg/dL Lactic Ac Sepsis Rflx Plasma Lactic Acid Jeremy (0.7-2.0) mmol/L Calcium 10.6 H (8.4-10.2) mg/dL Total Bilirubin 0.2 (0.2-1.3) mg/dL AST 15 (14-36) U/L ALT 19 (4-34) U/L Alkaline Phosphatase 125 (38-126) U/L Troponin I (0.000-0.034) ng/mL NT-Pro-B Natriuret Pep 889 pg/mL Total Protein 6.4 (6.3-8.2) g/dL Albumin 3.7 (3.5-5.0) g/dL 07/13/24 07/13/24 07/13/24 Range/Units 16:19 16:19 17:20 WBC (3.8-10.6) k/uL RBC (3.80-5.40) m/uL Hgb (11.4-16.0) gm/dL Hct (34.0-46.0) % MCV (80.0-100.0) fL MCH (25.0-35.0) pg MCHC (31.0-37.0) g/dL RDW (11.5-15.5) % Plt Count (150-450) k/uL MPV Neutrophils % (Manual) % Lymphocytes % (Manual) % Eosinophils % (Manual) % Neutrophils # (Manual) (1.3-7.7) k/uL Lymphocytes # (Manual) (1.0-4.8) k/uL Eosinophils # (Manual) (0-0.7) k/uL Nucleated RBCs (0-0) /100 WBC Manual Slide Review PT (10.0-12.5) sec INR (<1.2) APTT (22.0-30.0) sec Sodium (137-145) mmol/L Potassium (3.5-5.1) mmol/L Chloride (98-107) mmol/L Carbon Dioxide (22-30) mmol/L Anion Gap mmol/L BUN (7-17) mg/dL Creatinine (0.52-1.04) mg/dL Est GFR (CKD-EPI)AfAm (>60 ml/min/1.73 sqM) Est GFR (CKD-EPI)NonAf (>60 ml/min/1.73 sqM) Glucose (74-99) mg/dL Lactic Ac Sepsis Rflx Y Plasma Lactic Acid Jeremy 2.3 H* (0.7-2.0) mmol/L Calcium (8.4-10.2) mg/dL Total Bilirubin (0.2-1.3) mg/dL AST (14-36) U/L ALT (4-34) U/L Alkaline Phosphatase (38-126) U/L Troponin I <0.012 (0.000-0.034) ng/mL NT-Pro-B Natriuret Pep pg/mL Total Protein (6.3-8.2) g/dL Albumin (3.5-5.0) g/dL Disposition Clinical Impression: Mass of mediastinum, Sepsis Disposition: ADMITTED IP TO THIS HOSP Condition: Stable
[2024-07-13] MEDS: IPRATROPIUM-ALBUTEROL 3 ML NEB INHALATION STA (16:40)
[2024-07-13 16:47] LABS: Partial Thromboplastin Time 20.3 sec (22.0-30.0); Prothrombin Time 11.2 sec (10.0-12.5)
[2024-07-13 16:49] LABS: ALT 19 U/L (4-34); AST 15 U/L (14-36); African American GFR (CKD) 85 (>60 ml/min/1.73 sqM); Albumin 3.7 g/dL (3.5-5.0); Alkaline Phosphatase 125 U/L (38-126); Anion Gap 10 mmol/L; Blood Urea Nitrogen 19 mg/dL (7-17); Calcium 10.6 mg/dL (8.4-10.2); Carbon Dioxide 25 mmol/L (22-30); Chloride 104 mmol/L (98-107); Glucose 115 mg/dL (74-99); Non-African American GFR(CKD) 74 (>60 ml/min/1.73 sqM); Potassium 3.5 mmol/L (3.5-5.1); Sodium 139 mmol/L (137-145); Total Bilirubin 0.2 mg/dL (0.2-1.3); Total Protein 6.4 g/dL (6.3-8.2)
[2024-07-13 16:58] LABS: NT-Pro-B-Type Natriuretic Pept 889 pg/mL
[2024-07-13 17:01] LABS: HCT 37.6 % (34.0-46.0); MCH 28.3 pg (25.0-35.0); MCV 88.5 fL (80.0-100.0); Mean Platelet Volume 7.6; Platelet Count 547 k/uL (150-450); RBC 4.25 m/uL (3.80-5.40); RDW 15.7 % (11.5-15.5); WBC 40.6 k/uL (3.8-10.6)
[2024-07-13] MEDS: SODIUM CHLORIDE 0.9% 1,000 ML IV STA (17:25)
[2024-07-13] MEDS: methylPREDNISolone SOD SUCCI 125 MG/2 ML VIAL IV STA (17:26)
--- NOTE | 2024-07-13 17:40 | CT ---
EXAMINATION TYPE: CT chest angio for PE DATE OF EXAM: 07/13/2024 5:26 PM COMPARISON: Chest radiograph from and 05/30/2024 CLINICAL INDICATION: Female, 63 years old with history of REGINA x2 mon, fail otpt abx, hip surgery; pne umonia, SOB TECHNIQUE/CONTRAST: CTA scan of the thorax is performed with IV Contrast, patient injected with 100 mL of Isovue 370, MIP images are created and reviewed these are created on a separate workstation.. CT DLP: 356 mGycm, Automated exposure control for dose reduction was used. FINDINGS: Lungs/Pleura: No evidence of focal consolidation, pleural effusion or pneumothorax. Paraseptal and ce ntrilobular emphysema changes noted. Airway: Large airways are patent. Heart: Heart is within normal limits for size. Lipomatous hypertrophy changes of the interatrial sept um. Vasculature: There is no evidence for a filling defect within the pulmonary vasculature to suggest ac cesar pulmonary embolism. The pulmonary artery is of normal size. Mediastinum: There is a mediastinal mass extending down the trachea towards the right pulmonary hilum measures up 5.7 x 4.6 x 7.7 cm. This mass surrounds the right main bronchus in the right upper lung airways. Aneurysm minimal narrowing at this time. A small hiatal hernia is present. Musculoskeletal: No acute osseous abnormalities Soft Tissues/lymph nodes: Unremarkable. Lower neck: No significant findings. Upper Abdomen: Diffuse low-attenuation to the liver parenchyma.. The gallbladder surgically absent. IMPRESSION: 1. No evidence of pulmonary embolism. 2. Mediastinal mass extending down the trachea towards the right pulmonary hilum measuring 5.7 x 4.6 x 7.7 cm findings most compatible with malignancy. Oncologic workup recommended with bronchoscopy and tissue sampling. No evidence for metastatic disease at this time. Attention on follow-up PET/CT. 3. Hepatic steatosis. [facility], , 07/13/2024 5:38 PM
[2024-07-13 17:48] LABS: Eosinophils # (M) 1.62 k/uL (0-0.7); Lymphocytes # (M) 5.68 k/uL (1.0-4.8); Neutrophils # (M) 33.29 k/uL (1.3-7.7); Neutrophils % (M) 82 %; Nucleated Red Blood Cells 0 /100 WBC (0-0); Total Cells Counted 100
[2024-07-13] MEDS: AZITHROMYCIN 500 MG in SODIUM CHLORIDE 0.9% 250 ML IVPB STA (18:16)
[2024-07-13] MEDS ORDERED: NALOXONE 0.4 MG/ML 1 ML VIAL IV PRN (18:47)
[2024-07-13] MEDS ORDERED: ACETAMINOPHEN TAB 325 MG TAB PO PRN (18:47)
[2024-07-13] MEDS: FAMOTIDINE 20 MG TAB PO SCH (21:05)
--- NOTE | 2024-07-14 01:21 | P.HPIM ---
History of Present Illness H&P Date: 07/13/24 Chief Complaint: Shortness of breath Patient is a 63-year-old female with COPD, GERD, history of pneumonia presented to the emergency department with shortness of breath. Patient reports having shortness of breath for the past 3 months. It has worsened over the past week w hich prompted the patient to come to ED for evaluation. Patient reports she cannot walk very far without getting short winded. She reports having hard time even walking more than 10 feet. Patient has visited urgent care several times over the past 3 months and received 3 rounds of antibiotics and 3 rounds of steroids which did not help her symptoms. Patient also endorsed coughing and clear sputum production. Patient also endorsed losing about 35 pounds since January of this year. Reports poor appetite. Currently endorses pain in her neck, jaw, and right shoulder blade. Denies fever, chills, chest pain, nausea, vomiting, belly pain, hematochezia/melena, diarrhea/constipation, lightheaded ness, dizziness, no upper or lower extremity muscle tingling or numbness sensation. ED documentation reviewed. In the ED patient was treated with a bolus of normal saline, Solu-Medrol 125 mg IV x 1, DuoNeb 3 mL x 1, ceftriaxone 1 g IV x 1, azithromycin 500 mg IV x 1 Vitals on admission temperature 98.1, heart rate 84, respiratory rate 20, blood pressure 130/60, O2 sat 100% on nasal cannula 2 L/min EKG independently interpreted as sinus rhythm with ventricular rate of 96 bpm, QTc interval 370 ms, ST deviation and moderate T wave abnormality, consider anterior ischemia CT angio of the chest shows no evidence of pulmonary embolism. Hepatic steatosis. Mediastinal mass extending down the trachea towards the right pulmonary hilum measuring 5.7 x 4.6 x 7.7 cm findings most compatible with malignancy. Oncologic workup recommended with bronchoscopy and tissue sampling. No evidence for metastatic disease at this time. Attention on follow-up PET/CT. Labs on admission show WBC 40.6, hemoglobin 12, hematocrit 37.6, platelets 547, neutrophils 33.29, PT 11.2, PTT 20.3, INR 1.0, sodium 139, potassium 3.5, chloride 104, carbon dioxide 25, BUN 19, creatinine 0.84, glucose 115, lactic acid 2.3, calcium 10.6, troponin less than 0.012, BNP 889 Review of systems: Pertinent positives and negatives as discussed in HPI, a complete review of systems was performed and all other systems are negative. PMH: COPD, GERD, history of pneumonia PSH: Right hip replacement January 2024 FMH: No pertinent family history Allergies: Lactose, mold, nickel, NSAIDs Social history: Tobacco: Current everyday smoker Alcohol: Rare Recreational drugs: No drug use Travel: No recent travel history Sick contacts: No sick contacts Physical examination: Vital signs reviewed General: nontoxic, no distress, appears at stated age, well-appearing Derm: warm, dry, intact Head: atraumatic, normocephalic, symmetric Eyes: EOMI, anicteric sclera Mouth: no lip lesion, mucus membranes moist Cardiovascular: S1 S2 reg, no murmur Lungs: CTA bilateral, no rhonchi, no rales, no accessory muscle use Abdominal: soft, non-tender to palpation Extremities: No cyanosis, clubbing, or pedal edema. Neuro: Alert, Oriented to time, person, place, Gross neurological examination did not reveal any focal deficits. Cranial nerves II through XII grossly intact. Bilateral upper and lower extremity muscle strength intact 5 out of 5 and sensation intact. Psych: appropriate affect Assessment/Plan: 63-year-old female with COPD, GERD, history of pneumonia presented to the emergency department with shortness of breath. Patient will be admitted to inpatient medicine service. Active: #. Shortness of breath #. Mediastinal mass, likely lung malignancy #. Acute COPD exacerbation Consult oncology CT angio of the chest shows no evidence of pulmonary embolism. Hepatic steatosis. Mediastinal mass extending down the trachea towards the right pulmonary hilum measuring 5.7 x 4.6 x 7.7 cm findings most compatible with malignancy. Oncologic workup recommended with bronchoscopy and tissue sampling. No evidence for metastatic disease at this time. Attention on follow-up PET/CT. DuoNebs 3 mL 4 times daily and as needed Solu-Medrol 500 mg IV every 8 hours Supplemental oxygen as needed Consult pulmonary medicine for bronchoscopy and tissue sampling Order PET scan #. Leukocytosis WBC 40.6 Likely due to underlying malignancy Monitor morning CBC #. Thrombocytosis Platelets 574 Likely due to underlying malignancy Monitor morning CBC #. Lactic acidosis Lactic acid 2.3, 2.4, 2.7 A bolus of normal saline was given in the ED Start another bolus of normal saline #. Hypercalcemia Calcium 10.6 Monitor morning CMP #. Hyperglycemia Glucose 115 Accu-Cheks every 6 hours #. Insomnia Initiate melatonin 5 mg at bedtime Chronic: #. GERD Restart omeprazole 20 mg daily F: No restrictions E: Replete as needed N: Regular diet A: Ambulatory DVT prophylaxis: Lovenox 40 mg subcu daily The patient is admitted with an anticipated more than 2 midnight stay for evaluation of shortness of breath CODE STATUS: Full code Discussed with: Patient Anticipated discharge place: Home I have seen and evaluated the patient today. I Discussed the case with the resident and agree with the resident's findings I edited the assessment and plan as necessary as documented in the resident's note. Past Medical History Past Medical History: COPD, GERD/Reflux, Pneumonia Additional Past Medical History / Comment(s): psoriatic arthritis Past Surgical History: Joint Replacement Additional Past Surgical History / Comment(s): R hip replacement January 2024 Smoking Status: Current some day smoker Past Alcohol Use History: Rare Past Drug Use History: None Reported Medications and Allergies Home Medications Medication Instructions Recorded Confirmed Type Albuterol Inhaler [Ventolin Hfa 2 puff INHALATION RT-Q4H PRN 02/04/24 07/13/24 History Inhaler] Amitriptyline HCl 25 mg PO HS 02/04/24 07/13/24 History Cetirizine HCl 10 mg PO HS 02/04/24 07/13/24 History Omeprazole 20 mg PO DAILY 02/04/24 07/13/24 History traMADol HCL 50 mg PO TID PRN 02/04/24 07/13/24 History Ipratropium-Albuterol Nebulize 3 ml INHALATION RT-QID PRN 07/13/24 07/13/24 History [Duoneb 0.5 mg-3 mg/3 ml Soln] L.acidoph,Paracasei, B.lactis 1 cap PO HS 07/13/24 07/13/24 History [Probiotic] Umeclidinium Brm/Vilanterol Tr 1 puff INHALATION RT-DAILY 07/13/24 07/13/24 History [Anoro Ellipta 62.5-25 Mcg INH] Allergies Allergy/AdvReac Type Severity Reaction Status Date / Time lactose Allergy Unknown Verified 07/13/24 17:22 mold Allergy Unknown Verified 07/13/24 17:22 nickel Allergy Rash/Hives Verified 07/13/24 17:22 NSAIDS (Non-Steroidal AdvReac Unknown Verified 07/13/24 17:22 Anti-Inflamma dust Allergy Unknown Uncoded 07/13/24 15:04 Physical Exam Vitals: Vital Signs Temp Pulse Resp BP Pulse Ox 07/13/24 18:15 84 20 130/60 100 07/13/24 17:00 105 H 18 110/70 07/13/24 16:53 105 H 07/13/24 16:41 93 07/13/24 15:05 98.1 F 108 H 26 H 103/57 100 Intake and Output 07/13/24 07/13/24 07/13/24 06:59 14:59 22:59 Other: Weight 74.389 kg Results CBC & Chem 7: 07/13/24 16:19 07/13/24 16:19 Labs: Abnormal Lab Results - Last 24 Hours (Table) 07/13/24 07/13/24 07/13/24 Range/Units 16:19 16:19 16:19 WBC 40.6 H (3.8-10.6) k/uL RDW 15.7 H (11.5-15.5) % Plt Count 547 H (150-450) k/uL Neutrophils # (Manual) 33.29 H (1.3-7.7) k/uL Lymphocytes # (Manual) 5.68 H (1.0-4.8) k/uL Eosinophils # (Manual) 1.62 H (0-0.7) k/uL APTT 20.3 L (22.0-30.0) sec BUN 19 H (7-17) mg/dL Glucose 115 H (74-99) mg/dL Plasma Lactic Acid Jeremy (0.7-2.0) mmol/L Calcium 10.6 H (8.4-10.2) mg/dL 07/13/24 Range/Units 16:19 WBC (3.8-10.6) k/uL RDW (11.5-15.5) % Plt Count (150-450) k/uL Neutrophils # (Manual) (1.3-7.7) k/uL Lymphocytes # (Manual) (1.0-4.8) k/uL Eosinophils # (Manual) (0-0.7) k/uL APTT (22.0-30.0) sec BUN (7-17) mg/dL Glucose (74-99) mg/dL Plasma Lactic Acid Jeremy 2.3 H* (0.7-2.0) mmol/L Calcium (8.4-10.2) mg/dL
[2024-07-14] MEDS: diazePAM 5 MG TAB PO PRN (02:18)
[2024-07-14] MEDS: SODIUM CHLORIDE 0.9% 1,000 ML IV ONE (03:44)
[2024-07-14] MEDS ORDERED: methylPREDNISolone SOD SUCCI 125 MG/2 ML VIAL IV SCH (06:30)
[2024-07-14] MEDS ORDERED: IPRATROPIUM-ALBUTEROL 3 ML NEB INHALATION PRN (07:18)
[2024-07-14] MEDS: IPRATROPIUM-ALBUTEROL 3 ML NEB INHALATION SCH (08:33)
[2024-07-14] MEDS ORDERED: ENOXAPARIN 40 MG/0.4 ML SYRINGE SQ SCH (09:00)
[2024-07-14] MEDS: predniSONE 50 MG TAB PO SCH (09:01)
[2024-07-14] MEDS: PANTOPRAZOLE 40 MG TABLET PO SCH (09:01)
[2024-07-14 10:30] LABS: ALT 17 U/L (4-34); AST 16 U/L (14-36); African American GFR (CKD) >90 (>60 ml/min/1.73 sqM); Albumin 2.9 g/dL (3.5-5.0); Alkaline Phosphatase 124 U/L (38-126); Anion Gap 12 mmol/L; Blood Urea Nitrogen 16 mg/dL (7-17); Calcium 9.9 mg/dL (8.4-10.2); Carbon Dioxide 19 mmol/L (22-30); Chloride 108 mmol/L (98-107); Glucose 173 mg/dL (74-99); Non-African American GFR(CKD) >90 (>60 ml/min/1.73 sqM); Potassium 4.3 mmol/L (3.5-5.1); Sodium 139 mmol/L (137-145); Total Bilirubin <0.1 mg/dL (0.2-1.3); Total Protein 5.6 g/dL (6.3-8.2)
[2024-07-14 10:33] LABS: HCT 35.2 % (34.0-46.0); HGB 10.8 gm/dL (11.4-16.0); Hypochromasia Moderate; MCH 28.5 pg (25.0-35.0); MCHC 30.7 g/dL (31.0-37.0); MCV 92.7 fL (80.0-100.0); Mean Platelet Volume 9.2; Platelet Count 493 k/uL (150-450); RDW 15.6 % (11.5-15.5); WBC 39.5 k/uL (3.8-10.6)
[2024-07-14 10:50] LABS: Lymphocytes # (M) 1.98 k/uL (1.0-4.8); Monocytes # (M) 0.79 k/uL (0-1.0); Neutrophils # (M) 37.13 k/uL (1.3-7.7); Neutrophils % (M) 94 %; Nucleated Red Blood Cells 0 /100 WBC (0-0); Total Cells Counted 200
[2024-07-14 11:38] LABS: Glucose,Whole Blood 112 mg/dL (70-110)
--- NOTE | 2024-07-14 12:37 | P.PN ---
Subjective Progress Note Date: 07/14/24 Patient is a 63-year-old female with COPD, GERD, history of pneumonia presented to the emergency department with shortness of breath. Patient reports having shortness of breath for the past 3 months. It has worsened over the past week which prompted the patient to come to ED for evaluation. Patient stats she cannot walk very far (no more than 10 feet) without getting short of breath. Patient has visited urgent care several times over the past 3 months and received 3 rounds of antibiotics and 3 rounds of steroids which did not help her symptoms. Patient also endorsed coughing and clear sputum production. Patient also endorsed losing about 35 pounds since January of this year. Reports poor appetite. Currently reports pain in her neck, jaw, and right shoulder blade. Denies fever, chills, chest pain, nausea, vomiting, abdominal pain, hematochezia/melena, diarrhea/constipation, lightheadedness, dizziness, no upper or lower extremity muscle tingling or numbness sensation. In the ED patient was treated with a bolus of normal saline, Solu-Medrol 125 mg IV x 1, DuoNeb 3 mL x 1, ceftriaxone 1 g IV x 1, azithromycin 500 mg IV x 1 07/14. Patient seen lying in bed. No acute events overnight. No significant complaints today. Reports improved cough and dyspnea, continued pain into the right scapula. Denies fever, chills, nausea/vomiting, abdominal pain, chest pain. Chest CTA: No evidence of pulmonary embolism, mediastinal mass extending down the trachea towards the right pulmonary hilum measuring 5.7 x 4.6 x 7.7 cm findings most compatible with malignancyoncologic workup recommended with bronchoscopy and tissue sampling. Labs today: WBC 39.5, hemoglobin 10.8, hematocrit 35.2, platelets 493, sodium 139, potassium 4.3, chloride 108, CO2 19, BUN 16, creatinine 0.71, glucose 173, lactic acid 3.1, total protein 5.6, albumin 2.9. Pertinent positives and negatives discussed above, a complete review of systems was performed and all the other systems were negative. Physical examination: Vital signs reviewed General: Nontoxic, no distress, appears stated age, well-appearing Derm: Warm, dry, intact Head: Atraumatic, normocephalic, symmetric Eyes: EOMI, anicteric sclera Mouth: No lip lesion, mucus membranes moist Cardiovascular: S1-S2 regular, no murmur Lungs: CTA bilateral, no rhonchi, no rales, no accessory muscle use Abdominal: Soft, non-tender to palpation Extremities: No cyanosis, clubbing, or pedal edema Neuro: Alert, oriented x 3, gross neurological examination did not reveal any focal deficits. Cranial nerves II to XII grossly intact. Psych: Appropriate affect and mood Assessment and Plan: Patient is a 63-year-old female with history of COPD, recent history of pneumonia treatment, and GERD admitted for dyspnea and further workup of mediastinal mass found on CTA. Active #. Dyspnea, less likely COPD exacerbation #. Mediastinal mass #. History of COPD, not in acute exacerbation Pending bronchoscopy Pulmonology consulted Continue DuoNebs 4 times daily and as needed Oxygen supplementation as needed to maintain oxygen saturation >88% Prednisone 50 mg daily to start tomorrow #. Leukocytosis, likely due to underlying malignancy #. Thrombocytosis, likely due to underlying malignancy Monitor CBC #. Lactic acidosis, improving Continue 0.9% saline at 130 cc/h #. Hypercalcemia, possibly due to underlying malignancy 0.9% saline at 130 cc/h Obtain ionized calcium Obtain PTH Obtain 25-hydroxy vitamin D Obtain 1,25-dihydroxy vitamin D Obtain TSH with reflex Obtain LDH Chronic #. GERD Omeprazole 20 mg daily F: 0.9% saline at 130 cc/h E: Replete if required N: NPO for bronchoscopy A: Ambulatory DVT prophylaxis: On hold pending bronchoscopy Code status: Full code Anticipated discharge place: Pending clinical course I saw and evaluated the patient during the villeda and critical portions of this encounter, and discussed the case in detail with the resident author of this note, I agree with the Assessment and Plan, and my changes, if any, are highlighted in blue. Objective - Vital Signs Vital signs: Vital Signs Temp 97.9 F 07/14/24 06:50 Pulse 78 07/14/24 06:50 Resp 16 07/14/24 06:50 BP 121/53 07/14/24 06:50 Pulse Ox 97 07/14/24 06:50 FiO2 Intake & Output 07/13/24 07/14/24 07/14/24 18:59 06:59 18:59 Weight 74.389 kg - Labs CBC & Chem 7: 07/14/24 05:43 07/14/24 05:43 Labs: Abnormal Lab Results - Last 24 Hours (Table) 07/13/24 07/13/24 07/13/24 Range/Units 16:19 16:19 16:19 WBC 40.6 H (3.8-10.6) k/uL RDW 15.7 H (11.5-15.5) % Plt Count 547 H (150-450) k/uL Neutrophils # (Manual) 33.29 H (1.3-7.7) k/uL Lymphocytes # (Manual) 5.68 H (1.0-4.8) k/uL Eosinophils # (Manual) 1.62 H (0-0.7) k/uL APTT 20.3 L (22.0-30.0) sec BUN 19 H (7-17) mg/dL Glucose 115 H (74-99) mg/dL Plasma Lactic Acid Jeremy (0.7-2.0) mmol/L Calcium 10.6 H (8.4-10.2) mg/dL 07/13/24 07/13/24 07/13/24 Range/Units 16:19 19:44 23:31 WBC (3.8-10.6) k/uL RDW (11.5-15.5) % Plt Count (150-450) k/uL Neutrophils # (Manual) (1.3-7.7) k/uL Lymphocytes # (Manual) (1.0-4.8) k/uL Eosinophils # (Manual) (0-0.7) k/uL APTT (22.0-30.0) sec BUN (7-17) mg/dL Glucose (74-99) mg/dL Plasma Lactic Acid Jeremy 2.3 H* 2.4 H* 2.7 H* (0.7-2.0) mmol/L Calcium (8.4-10.2) mg/dL 07/14/24 07/14/24 Range/Units 02:24 05:43 WBC (3.8-10.6) k/uL RDW (11.5-15.5) % Plt Count (150-450) k/uL Neutrophils # (Manual) (1.3-7.7) k/uL Lymphocytes # (Manual) (1.0-4.8) k/uL Eosinophils # (Manual) (0-0.7) k/uL APTT (22.0-30.0) sec BUN (7-17) mg/dL Glucose (74-99) mg/dL Plasma Lactic Acid Jeremy 4.2 H* 3.1 H* (0.7-2.0) mmol/L Calcium (8.4-10.2) mg/dL
--- NOTE | 2024-07-14 12:38 | P.CNPUL ---
History of Present Illness Consult date: 07/14/24 Requesting physician: Karon Thompson Reason for consult: other (Mediastinal mass) Chief complaint: Cough History of present illness: This is a 63-year-old with history of COPD, smoker, history of GERD, patient has been coughing now for the last 3 months. Patient has been on multiple courses of steroids and antibiotics, but have been noticed no improvement. Recently her cough has been getting worse, patient is also developing shortness of breath on exertion, and at times difficulty swallowing. Patient also lost about 35 pounds since January of this year. She has poor appetite and sometimes difficulty swallowing. Patient was sent to the ER, and a CT of the chest clearly showed a large mediastinal mass, extending down the trachea towards the right pulmonary hilum measuring 5.7 x 4.6 x 7.7 findings are compatible with malignancy. Hence this consult was initiated. Patient denies any hemoptysis denies any fever or chills, but she does have chronic cough and weight loss. Today after evaluating the patient, I recommended bronchoscopy and devi needle aspiration/biopsy of mediastinal mass. Patient is agreeable to proceed and this will be done sometime later today Review of Systems Constitutional: Weight loss no fever no chills HEENT: Negative Pulmonary: As noted in HPI GI: As noted in HPI Hematologic: History of leukocytosis patient has been seen by oncology in the past, and workup for leukocytosis has been nondiagnostic she was having more wor kup/pending Genitourinary: Negative Musculoskeletal: Negative Endocrine: Negative Neurologic: Negative Psychiatric: Negative Skin: Negative Past Medical History Past Medical History: COPD, GERD/Reflux, Pneumonia Additional Past Medical History / Comment(s): psoriatic arthritis Past Surgical History: Joint Replacement Additional Past Surgical History / Comment(s): R hip replacement January 2024 Smoking Status: Current some day smoker Past Alcohol Use History: Rare Past Drug Use History: None Reported Medications and Allergies Home Medications Medication Instructions Recorded Confirmed Type Albuterol Inhaler [Ventolin Hfa 2 puff INHALATION RT-Q4H PRN 02/04/24 07/13/24 History Inhaler] Amitriptyline HCl 25 mg PO HS 02/04/24 07/13/24 History Cetirizine HCl 10 mg PO HS 02/04/24 07/13/24 History Omeprazole 20 mg PO DAILY 02/04/24 07/13/24 History traMADol HCL 50 mg PO TID PRN 02/04/24 07/13/24 History Ipratropium-Albuterol Nebulize 3 ml INHALATION RT-QID PRN 07/13/24 07/13/24 History [Duoneb 0.5 mg-3 mg/3 ml Soln] L.acidoph,Paracasei, B.lactis 1 cap PO HS 07/13/24 07/13/24 History [Probiotic] Umeclidinium Brm/Vilanterol Tr 1 puff INHALATION RT-DAILY 07/13/24 07/13/24 History [Anoro Ellipta 62.5-25 Mcg INH] Allergies Allergy/AdvReac Type Severity Reaction Status Date / Time lactose Allergy Unknown Verified 07/13/24 17:22 mold Allergy Unknown Verified 07/13/24 17:22 nickel Allergy Rash/Hives Verified 07/13/24 17:22 NSAIDS (Non-Steroidal AdvReac Unknown Verified 07/13/24 17:22 Anti-Inflamma dust Allergy Unknown Uncoded 07/13/24 15:04 Physical Exam Vitals: Vital Signs Temp Pulse Pulse Resp BP BP Pulse Ox 07/14/24 12:19 84 07/14/24 12:03 88 07/14/24 11:15 97.5 F L 101 H 16 152/68 99 07/14/24 10:29 87 22 128/72 97 07/14/24 08:46 87 07/14/24 08:33 84 07/14/24 06:50 97.9 F 78 16 121/53 97 07/14/24 06:15 77 18 95 07/14/24 03:05 98.1 F 80 18 125/51 98 07/14/24 02:00 98 18 121/53 96 07/14/24 01:00 97 18 117/66 99 07/14/24 00:00 79 18 123/67 96 07/13/24 23:00 76 18 128/67 97 07/13/24 22:00 96 20 137/70 96 07/13/24 21:00 97 20 130/70 96 07/13/24 20:00 100 20 116/60 94 L 07/13/24 19:31 97 20 102/76 97 07/13/24 18:15 84 20 130/60 100 07/13/24 17:00 105 H 18 110/70 07/13/24 16:53 105 H 07/13/24 16:41 93 07/13/24 15:05 98.1 F 108 H 26 H 103/57 100 Intake and Output 07/13/24 07/14/24 07/14/24 22:59 06:59 14:59 Other: Weight 74.389 kg General: Revealed 63-year-old female in no distress Head: Atraumatic, normocephalic Eyes: EOMI, anicteric sclera Mouth: Moist mucous membranes Cardiovascular: Distant S1-S2, no S3 gallop, no murmur Lungs: Symmetrical chest expansion clear bilaterally no rhonchi no wheezes Abdominal: Soft nontender no megaly no rebound no guarding Extremities: No clubbing edema or cyanosis Neuro: Alert oriented x 3 no gross focal deficit Psychiatric: Normal mood affect and no mental status examination Skin: No rashes. Results - Laboratory Findings CBC and BMP: 07/14/24 05:43 07/14/24 05:43 PT/INR, D-dimer PT 11.2 sec (10.0-12.5) 07/13/24 16:19 INR 1.0 (<1.2) 07/13/24 16:19 Abnormal lab findings: Abnormal Labs 07/13/24 07/13/24 07/13/24 16:19 16:19 16:19 WBC 40.6 H Hgb MCHC RDW 15.7 H Plt Count 547 H Neutrophils # (Manual) 33.29 H Lymphocytes # (Manual) 5.68 H Eosinophils # (Manual) 1.62 H APTT 20.3 L Chloride Carbon Dioxide BUN 19 H Glucose 115 H POC Glucose (mg/dL) Plasma Lactic Acid Jeremy Calcium 10.6 H Total Bilirubin Total Protein Albumin 07/13/24 07/13/24 07/13/24 16:19 19:44 23:31 WBC Hgb MCHC RDW Plt Count Neutrophils # (Manual) Lymphocytes # (Manual) Eosinophils # (Manual) APTT Chloride Carbon Dioxide BUN Glucose POC Glucose (mg/dL) Plasma Lactic Acid Jeremy 2.3 H* 2.4 H* 2.7 H* Calcium Total Bilirubin Total Protein Albumin 07/14/24 07/14/24 07/14/24 02:24 05:43 05:43 WBC 39.5 H Hgb 10.8 L MCHC 30.7 L RDW 15.6 H Plt Count 493 H Neutrophils # (Manual) 37.13 H Lymphocytes # (Manual) Eosinophils # (Manual) APTT Chloride Carbon Dioxide BUN Glucose POC Glucose (mg/dL) Plasma Lactic Acid Jeremy 4.2 H* 3.1 H* Calcium Total Bilirubin Total Protein Albumin 07/14/24 07/14/24 07/14/24 05:43 09:03 11:31 WBC Hgb MCHC RDW Plt Count Neutrophils # (Manual) Lymphocytes # (Manual) Eosinophils # (Manual) APTT Chloride 108 H Carbon Dioxide 19 L BUN Glucose 173 H POC Glucose (mg/dL) 112 H Plasma Lactic Acid Jeremy 3.3 H* Calcium Total Bilirubin <0.1 L Total Protein 5.6 L Albumin 2.9 L - Diagnostic Findings CT scan - chest: image reviewed (As noted in HPI) Assessment and Plan Assessment: Impression: Mediastinal mass highly suggestive of malignancy History of chronic cough, x 3 months History of underlying COPD, tobacco dependence syndrome History of difficulty swallowing could be related to mediastinal mass history of degenerative joint disease and right hip replacement in January 17, 2002 4 Recommendation: Discussed and reviewed with the patient her CT of the chest findings Continue present supportive care measures and bronchodilators Will arrange for bronchoscopy and devi aspiration of mediastinal lymph nodes Risks and benefits of the procedure were discussed with the patient and she is willing to proceed. Will continue to follow-up Time with Patient: Greater than 30
[2024-07-14 13:03] LABS: Ionized Calcium 5.8 mg/dL (4.5-5.3)
[2024-07-14] MEDS: IV FLUID CONTINUATION 1,000 ML IV ONE ×2 (13:05→15:38)
[2024-07-14 13:10] LABS: LDH 232 U/L (120-246)
[2024-07-14] MEDS ORDERED: PROPOFOL 10 MG/ML 20 ML VIAL IV ONE (13:56)
[2024-07-14] MEDS ORDERED: ROCURONIUM 10 MG/ML (5 ML VIAL) IV ONE (13:56)
[2024-07-14] MEDS ORDERED: LIDOCAINE 1% INJ 10MG/ML (20 ML MDV) ONE (13:56)
[2024-07-14] MEDS ORDERED: fentaNYL (PF) 50 MCG/ML 2 ML AMP ONE (13:56)
[2024-07-14] MEDS ORDERED: LIDOCAINE 4% LTA KIT (4 ML) TOPICAL ONE (13:56)
[2024-07-14] MEDS ORDERED: MIDAZOLAM 2 MG/2 ML VIAL ONE (13:56)
[2024-07-14] MEDS ORDERED: SUCCINYLCHOLINE CHLORIDE 200 MG/10 ML VIAL IV ONE (13:56)
[2024-07-14] MEDS ORDERED: NEOSTIGMINE 1 MG/ML 10 ML VIAL ONE (13:56)
[2024-07-14] MEDS ORDERED: GLYCOPYRROLATE 0.2 MG/ML 2 ML VIAL ONE (13:56)
[2024-07-14] MEDS: SODIUM CHLORIDE 0.9% 1,000 ML IV SCH (16:00)
[2024-07-14 17:03] LABS: Glucose,Whole Blood 90 mg/dL (70-110)
--- NOTE | 2024-07-14 18:53 | P.CONS ---
History of Present Illness - Reason for Consult Consult date: 07/14/24 lung mass Requesting physician: Syed Hill - Chief Complaint SOB - History of Present Illness Patient is a 63-year-old female with a history of psoriatic arthritis (currently not on treatment), who presented to the emergency room with complaints of ongoing shortness of breath over the last 2 months. Consult was placed for mediastinal mass. Patient reports over the last couple months he has been experiencing cough and congestion and has been on multiple rounds of antibiotics and steroids.. Patient states shortness of breath has been progressing as well as central chest pain that radiates to upper back. Denies hemoptysis. Of note patient has long history of nicotine dependence but quit smoking 2 months ago. She endorses approximate 35 pound weight loss since January. Also reports swollen and tender cervical lymph nodes. She does follow with Dr. Robledo at [facility] due to a suspicious lesion of the spine, however bone scan was obtained and was believed to be benign in nature and has been following with observation. Last CT low-dose chest screening was done in September 2023 which was negative for malignancy per patient. Mammogram within the last year was normal and last colonoscopy was in the last 3 years which showed no significant findings. On admit CTA chest was negative for pulmonary embolism. Mediastinal mass extending down the trachea towards the right pulmonary hilum measuring 5.7 x 4.6 x 7.7 cm was noted. Hepatic steatosis. Labs reviewed, leukocytosis noted with WBC 39.5, hemoglobin 10.8, MCV 92.7 with moderate hypochromasia, platelets 493,000. Creatinine 0.71, GFR > 90. Differential showing mostly neutrophilia, however differential yesterday showing elevation in lymphocytes and eosinophils, normal today. Pt afebrile, SPO2 97% on 2L. Pt was started on IV abx for possible pneumonia. Pulmonology consulted, with plan for bronchoscopy/biopsy today Review of Systems 10 point ROS is negative except as stated in the HPI Past Medical History Past Medical History: COPD, GERD/Reflux, Pneumonia Additional Past Medical History / Comment(s): psoriatic arthritis Past Surgical History: Joint Replacement Additional Past Surgical History / Comment(s): R hip replacement January 2024 Smoking Status: Current some day smoker Past Alcohol Use History: Rare Past Drug Use History: None Reported Medications and Allergies Home Medications Medication Instructions Recorded Confirmed Type Albuterol Inhaler [Ventolin Hfa 2 puff INHALATION RT-Q4H PRN 02/04/24 07/13/24 History Inhaler] Amitriptyline HCl 25 mg PO HS 02/04/24 07/13/24 History Cetirizine HCl 10 mg PO HS 02/04/24 07/13/24 History Omeprazole 20 mg PO DAILY 02/04/24 07/13/24 History traMADol HCL 50 mg PO TID PRN 02/04/24 07/13/24 History Ipratropium-Albuterol Nebulize 3 ml INHALATION RT-QID PRN 07/13/24 07/13/24 History [Duoneb 0.5 mg-3 mg/3 ml Soln] L.acidoph,Paracasei, B.lactis 1 cap PO HS 07/13/24 07/13/24 History [Probiotic] Umeclidinium Brm/Vilanterol Tr 1 puff INHALATION RT-DAILY 07/13/24 07/13/24 History [Anoro Ellipta 62.5-25 Mcg INH] Allergies Allergy/AdvReac Type Severity Reaction Status Date / Time lactose Allergy Unknown Verified 07/13/24 17:22 mold Allergy Unknown Verified 07/13/24 17:22 nickel Allergy Rash/Hives Verified 07/13/24 17:22 NSAIDS (Non-Steroidal AdvReac Unknown Verified 07/13/24 17:22 Anti-Inflamma dust Allergy Unknown Uncoded 07/13/24 15:04 Physical Exam Vitals: Vital Signs Temp Pulse Pulse Resp BP BP Pulse Ox 07/14/24 13:06 98.0 F 97 16 129/63 07/14/24 12:19 84 07/14/24 12:03 88 07/14/24 11:15 97.5 F L 101 H 16 152/68 99 07/14/24 10:29 87 22 128/72 97 07/14/24 08:46 87 07/14/24 08:33 84 07/14/24 06:50 97.9 F 78 16 121/53 97 07/14/24 06:15 77 18 95 07/14/24 03:05 98.1 F 80 18 125/51 98 07/14/24 02:00 98 18 121/53 96 07/14/24 01:00 97 18 117/66 99 07/14/24 00:00 79 18 123/67 96 07/13/24 23:00 76 18 128/67 97 07/13/24 22:00 96 20 137/70 96 07/13/24 21:00 97 20 130/70 96 07/13/24 20:00 100 20 116/60 94 L 07/13/24 19:31 97 20 102/76 97 07/13/24 18:15 84 20 130/60 100 07/13/24 17:00 105 H 18 110/70 07/13/24 16:53 105 H 07/13/24 16:41 93 07/13/24 15:05 98.1 F 108 H 26 H 103/57 100 Intake and Output 07/13/24 07/14/24 07/14/24 22:59 06:59 14:59 Other: Weight 74.389 kg - Constitutional General appearance: average body habitus, no acute distress - EENT Eyes: anicteric sclerae, EOMI ENT: hearing grossly normal - Neck anterior cervical LAD, R>L, mild tenderness noted Neck: lymphadenopathy - Respiratory Respiratory: bilateral: CTA - Cardiovascular Rhythm: regular - Gastrointestinal General gastrointestinal: soft, no tenderness - Integumentary Integumentary: no cyanotic, no jaundiced - Neurologic Neurologic: CNII-XII intact - Musculoskeletal Musculoskeletal: strength equal bilaterally - Psychiatric Psychiatric: A&O x's 3 Results CBC & Chem 7: 07/14/24 05:43 07/14/24 05:43 Labs: Abnormal Lab Results - Last 24 Hours (Table) 07/13/24 07/13/24 07/13/24 Range/Units 16:19 16:19 16:19 WBC 40.6 H (3.8-10.6) k/uL Hgb (11.4-16.0) gm/dL MCHC (31.0-37.0) g/dL RDW 15.7 H (11.5-15.5) % Plt Count 547 H (150-450) k/uL Neutrophils # (Manual) 33.29 H (1.3-7.7) k/uL Lymphocytes # (Manual) 5.68 H (1.0-4.8) k/uL Eosinophils # (Manual) 1.62 H (0-0.7) k/uL APTT 20.3 L (22.0-30.0) sec Chloride (98-107) mmol/L Carbon Dioxide (22-30) mmol/L BUN 19 H (7-17) mg/dL Glucose 115 H (74-99) mg/dL POC Glucose (mg/dL) (70-110) mg/dL Plasma Lactic Acid Jeremy (0.7-2.0) mmol/L Calcium 10.6 H (8.4-10.2) mg/dL Ionized Calcium Dean (4.5-5.3) mg/dL Total Bilirubin (0.2-1.3) mg/dL Total Protein (6.3-8.2) g/dL Albumin (3.5-5.0) g/dL 07/13/24 07/13/24 07/13/24 Range/Units 16:19 19:44 23:31 WBC (3.8-10.6) k/uL Hgb (11.4-16.0) gm/dL MCHC (31.0-37.0) g/dL RDW (11.5-15.5) % Plt Count (150-450) k/uL Neutrophils # (Manual) (1.3-7.7) k/uL Lymphocytes # (Manual) (1.0-4.8) k/uL Eosinophils # (Manual) (0-0.7) k/uL APTT (22.0-30.0) sec Chloride (98-107) mmol/L Carbon Dioxide (22-30) mmol/L BUN (7-17) mg/dL Glucose (74-99) mg/dL POC Glucose (mg/dL) (70-110) mg/dL Plasma Lactic Acid Jeremy 2.3 H* 2.4 H* 2.7 H* (0.7-2.0) mmol/L Calcium (8.4-10.2) mg/dL Ionized Calcium Dean (4.5-5.3) mg/dL Total Bilirubin (0.2-1.3) mg/dL Total Protein (6.3-8.2) g/dL Albumin (3.5-5.0) g/dL 07/14/24 07/14/24 07/14/24 Range/Units 02:24 05:43 05:43 WBC 39.5 H (3.8-10.6) k/uL Hgb 10.8 L (11.4-16.0) gm/dL MCHC 30.7 L (31.0-37.0) g/dL RDW 15.6 H (11.5-15.5) % Plt Count 493 H (150-450) k/uL Neutrophils # (Manual) 37.13 H (1.3-7.7) k/uL Lymphocytes # (Manual) (1.0-4.8) k/uL Eosinophils # (Manual) (0-0.7) k/uL APTT (22.0-30.0) sec Chloride (98-107) mmol/L Carbon Dioxide (22-30) mmol/L BUN (7-17) mg/dL Glucose (74-99) mg/dL POC Glucose (mg/dL) (70-110) mg/dL Plasma Lactic Acid Jeremy 4.2 H* 3.1 H* (0.7-2.0) mmol/L Calcium (8.4-10.2) mg/dL Ionized Calcium Dean (4.5-5.3) mg/dL Total Bilirubin (0.2-1.3) mg/dL Total Protein (6.3-8.2) g/dL Albumin (3.5-5.0) g/dL 07/14/24 07/14/24 07/14/24 Range/Units 05:43 09:03 11:31 WBC (3.8-10.6) k/uL Hgb (11.4-16.0) gm/dL MCHC (31.0-37.0) g/dL RDW (11.5-15.5) % Plt Count (150-450) k/uL Neutrophils # (Manual) (1.3-7.7) k/uL Lymphocytes # (Manual) (1.0-4.8) k/uL Eosinophils # (Manual) (0-0.7) k/uL APTT (22.0-30.0) sec Chloride 108 H (98-107) mmol/L Carbon Dioxide 19 L (22-30) mmol/L BUN (7-17) mg/dL Glucose 173 H (74-99) mg/dL POC Glucose (mg/dL) 112 H (70-110) mg/dL Plasma Lactic Acid Jeremy 3.3 H* (0.7-2.0) mmol/L Calcium (8.4-10.2) mg/dL Ionized Calcium Dean (4.5-5.3) mg/dL Total Bilirubin <0.1 L (0.2-1.3) mg/dL Total Protein 5.6 L (6.3-8.2) g/dL Albumin 2.9 L (3.5-5.0) g/dL 07/14/24 Range/Units 12:33 WBC (3.8-10.6) k/uL Hgb (11.4-16.0) gm/dL MCHC (31.0-37.0) g/dL RDW (11.5-15.5) % Plt Count (150-450) k/uL Neutrophils # (Manual) (1.3-7.7) k/uL Lymphocytes # (Manual) (1.0-4.8) k/uL Eosinophils # (Manual) (0-0.7) k/uL APTT (22.0-30.0) sec Chloride (98-107) mmol/L Carbon Dioxide (22-30) mmol/L BUN (7-17) mg/dL Glucose (74-99) mg/dL POC Glucose (mg/dL) (70-110) mg/dL Plasma Lactic Acid Jeremy (0.7-2.0) mmol/L Calcium (8.4-10.2) mg/dL Ionized Calcium Dean 5.8 H (4.5-5.3) mg/dL Total Bilirubin (0.2-1.3) mg/dL Total Protein (6.3-8.2) g/dL Albumin (3.5-5.0) g/dL CT scan - chest: report reviewed Assessment and Plan (1) Mass of mediastinum Current Visit: Yes Status: Acute Priority: High Code(s): J98.59 - OTHER DISEASES OF MEDIASTINUM, NOT ELSEWHERE CLASSIFIED SNOMED Code(s): 66732446 (2) Anemia Current Visit: Yes Status: Acute Priority: Medium Code(s): D64.9 - ANEMIA, UNSPECIFIED SNOMED Code(s): 098289553 Plan: Mediastinal mass: Presented with complaints of ongoing shortness of breath over the last 2 months. Patient reports over the last couple months he has been experiencing cough and congestion and has been on multiple rounds of antibiotics and steroids. She has long history of nicotine dependence but quit smoking 2 months ago. She endorses approximate 35 pound weight loss since January. Denies hemoptysis. Also reports swollen and tender cervical lymph nodes. She does follow with Dr. Robledo at [facility] due to a suspicious lesion of the spine, however bone scan was obtained and was believed to be benign in nature and has been following with observation. Last CT low-dose chest screening was done in September 2023 which was negative for malignancy per patient. -On admit CTA chest was negative for pulmonary embolism. Mediastinal mass extending down the trachea towards the right pulmonary hilum measuring 5.7 x 4.6 x 7.7 cm was noted. Hepatic steatosis. -LDH normal, 232 -Pulmonology consulted, with plan for bronchoscopy/biopsy today -Discussed findings with patient today and concerns for malignancy. With history on nicotine use, primary lung malignancy is concerning, however, presentation of anterior mediastinal mass, cervical LAD, and leukocytosis, a lymphoma would also be considered. Will f/u on pathology and pending results will recommend further workup with staging scans, and additional testing on pathology. Patient is unsure if she will continue to follow with Dr. Robledo or transfer care locally. Normocytic anemia: -CBC today showing, leukocytosis with WBC 39.5, hemoglobin 10.8, MCV 92.7 with moderate hypochromasia, platelets 493,000. Differential showing mostly neutrophilia; differential yesterday showing elevated lymphocytes and eosinophils, however they are normal today and likely reactive in nature -Will obtain anemia labs to r/o nutritional deficiencies -Continue to monitor CBC Doctor attests: I performed a history and physical examination of this patient, developed impression and plan of care. Discussed with dictator. I agree with dictators note, documented as a scribe.
[2024-07-14 19:57] LABS: Glucose,Whole Blood 142 mg/dL (70-110)
[2024-07-14] MEDS: traZODone HCL 50 MG TAB PO PRN (20:19)
[2024-07-14] MEDS: MELATONIN 5 MG TABLET PO SCH (20:20)
[2024-07-14] MEDS: AMITRIPTYLINE HCL 25 MG TAB PO SCH (21:30)
[2024-07-14] MEDS: LORATADINE 10 MG TAB PO SCH (21:30)
--- NOTE | 2024-07-14 21:37 | OP ---
OPERATIVE REPORT DATE OF SERVICE : PROCEDURES: Bronchoscopy, multiple endobronchial biopsies of angy, and right upper lobe bronchus. Multiple Culver needle aspiration of anterior mediastinal/anterior carinal lymph nodes, Culver needle core biopsy done of anterior carinal mass. Washing and lavage of right upper lobe bronchus and carinal region. PREOPERATIVE DIAGNOSIS: Mediastinal mass, highly suspicious for malignancy. POSTOPERATIVE DIAGNOSIS: Mediastinal mass, highly suspicious for malignancy. ANESTHESIA USED: General anesthesia. DESCRIPTION OF PROCEDURE: The patient was prepared according to the bronchoscopy protocol. She was brought into the bronchoscopy suite, intubated by KWAME, and after intubation and placement on mechanical ventilation, the bronchoscope was advanced down to the distal trachea and there was clearly evidence of very abnormal and irregular mucosa involving the whole angy, and the distal trachea as well as the right upper lobe bronchial mucosa. There was also evidence of significant compression/extrinsic compression on the angy with shifting of the angy to the left and narrowing of the left mainstem bronchus. There was evidence of extrinsic compression of the anterior segment of the right upper lobe. Otherwise looking further down into the right middle lobe, right lower lobe, left upper lobe, lingula, and left lower lobe, there was no evidence of any significant findings. Then, the patient had multiple endobronchial biopsies done of the carinal area, and all the irregular tissue that was noted was basically biopsied with direct visualizations of the irregular mucosa and the irregular nodules noted in the mucosa. The same was done for the segment of the right upper lobe that is going into the anterior segment of the right upper lobe. Then, Culver needle aspirations were done of the right anterior tracheal region, station 4R. Also, multiple core biopsies were done using a large Culver needle that was inserted at the carinal level, advanced anteriorly, and multiple passes were made. Washings of the angy, washings of the right upper lobe were also done. All the specimen was sent for different diagnostic studies. Blood loss was roughly about 15 cc total. The procedure was well tolerated, no complications, the patient was extubated while in the endoscopy suite, and she will be sent back to the floor. Findings were discussed with family members after the procedure. MMODL / IJN: [id number] /
[2024-07-15] MEDS: traMADol 50 MG TAB PO PRN (00:58)
[2024-07-15 02:10] LABS: % Iron Saturation 35.68 (12.00-45.00)
[2024-07-15 04:27] LABS: Basophils # (A) 0.1 k/uL (0-0.2); Basophils % (A) 0 %; Eosinophils # (A) 0.3 k/uL (0-0.7); Eosinophils % (A) 1 %; HCT 31.2 % (34.0-46.0); HGB 10.1 gm/dL (11.4-16.0); Lymphocytes # (A) 4.8 k/uL (1.0-4.8); Lymphocytes % (A) 13 %; MCH 28.8 pg (25.0-35.0); MCHC 32.4 g/dL (31.0-37.0); MCV 88.9 fL (80.0-100.0); Mean Platelet Volume 7.3; Monocytes # (A) 1.2 k/uL (0-1.0); Monocytes % (A) 3 %; Neutrophils # (A) 30.2 k/uL (1.3-7.7); Neutrophils % (A) 82 %; Platelet Count 485 k/uL (150-450); RBC 3.51 m/uL (3.80-5.40); RDW 15.8 % (11.5-15.5); WBC 36.8 k/uL (3.8-10.6)
[2024-07-15 04:31] LABS: African American GFR (CKD) >90 (>60 ml/min/1.73 sqM); Anion Gap 4 mmol/L; Blood Urea Nitrogen 16 mg/dL (7-17); Calcium 9.7 mg/dL (8.4-10.2); Carbon Dioxide 26 mmol/L (22-30); Chloride 109 mmol/L (98-107); Glucose 102 mg/dL (74-99); Non-African American GFR(CKD) 90 (>60 ml/min/1.73 sqM); Potassium 3.9 mmol/L (3.5-5.1); Sodium 139 mmol/L (137-145)
[2024-07-15 05:05] LABS: Crenated RBC Present; Tear Drop Cells Present
[2024-07-15 06:00] LABS: Glucose,Whole Blood 97 mg/dL (70-110)
[2024-07-15 11:47] LABS: Glucose,Whole Blood 101 mg/dL (70-110)
[2024-07-15 13:42] VITALS: BP 122/65; PULSE 87; RESP 18; TEMP 98
--- NOTE | 2024-07-15 15:28 | P.PN ---
Subjective Progress Note Date: 07/15/24 Principal diagnosis: Mediastinal mass This is a 63-year-old with history of COPD, smoker, history of GERD, patient has been coughing now for the last 3 months. Patient has been on multiple courses of steroids and antibiotics, but have been noticed no improvement. Recently her cough has been getting worse, patient is also developing shortness of breath on exertion, and at times difficulty swallowing. Patient also lost about 35 pounds since January of this year. She has poor appetite and sometimes difficulty swallowing. Patient was sent to the ER, and a CT of the chest clearly showed a large mediastinal mass, extending down the trachea towards the right pulmonary hilum measuring 5.7 x 4.6 x 7.7 findings are compatible with malignancy. Hence this consult was initiated. Patient denies any hemoptysis denies any fever or chills, but she does have chronic cough and weight loss. Today after evaluating the patient, I recommended bronchoscopy and devi needle aspiration/biopsy of mediastinal mass. Patient is agreeable to proceed and this will be done sometime later today Patient was seen today on 07/15/2024, doing fairly well except for chronic cough. Patient feels better as long as she is taking steroids. Discussed and reviewed with the patient and her again the findings on her bronchoscopy from yesterday, felt that the patient could be considered for discharge home, and follow-up on outpatient basis and decide whether further diagnostic studies are necessary. May recommend a PET scan on outpatient basis. Objective - Vital Signs Vital signs: Vital Signs Temp 98 F 07/15/24 08:00 Pulse 87 07/15/24 08:00 Resp 18 07/15/24 14:00 BP 122/65 07/15/24 08:00 Pulse Ox 93 L 07/15/24 08:00 FiO2 Intake & Output 07/14/24 07/15/24 07/15/24 18:59 06:59 18:59 Intake Total 1130 540 Balance 1130 540 Weight 74.389 kg 80.6 kg Intake: IV 1130 Sodium Chloride 0.9% 1, 130 000 ml @ 130 mls/hr IV . Q7H42M [facility] Rx#:[id number] Oral 540 Other: Voiding Method Toilet Toilet # Voids 2 3 - Exam General: Revealed 63-year-old female in no distress Head: Atraumatic, normocephalic Eyes: EOMI, anicteric sclera Mouth: Moist mucous membranes Cardiovascular: Distant S1-S2, no S3 gallop, no murmur Lungs: Symmetrical chest expansion clear bilaterally no rhonchi no wheezes Abdominal: Soft nontender no megaly no rebound no guarding Extremities: No clubbing edema or cyanosis Neuro: Alert oriented x 3 no gross focal deficit Psychiatric: Normal mood affect and no mental status examination Skin: No rashes. - Labs CBC & Chem 7: 07/15/24 03:52 07/15/24 03:52 Labs: Abnormal Lab Results - Last 24 Hours (Table) 07/14/24 07/14/24 07/14/24 Range/Units 12:33 12:33 16:42 WBC (3.8-10.6) k/uL RBC (3.80-5.40) m/uL Hgb (11.4-16.0) gm/dL Hct (34.0-46.0) % RDW (11.5-15.5) % Plt Count (150-450) k/uL Neutrophils # (1.3-7.7) k/uL Monocytes # (0-1.0) k/uL Chloride (98-107) mmol/L Glucose (74-99) mg/dL POC Glucose (mg/dL) (70-110) mg/dL Plasma Lactic Acid Jeremy (0.7-2.0) mmol/L TIBC 199 L (228-460) UG/DL Transferrin 142.0 L (204.0-354.0) mg/dL Ferritin 403.0 H (10.0-291.0) ng/mL Vitamin D 25-Hydroxy 24.1 L (30.0-100.0) ng/mL PTH Intact 8.7 L (14.0-72.0) pg/mL 07/14/24 07/14/24 07/14/24 Range/Units 16:42 19:53 21:27 WBC (3.8-10.6) k/uL RBC (3.80-5.40) m/uL Hgb (11.4-16.0) gm/dL Hct (34.0-46.0) % RDW (11.5-15.5) % Plt Count (150-450) k/uL Neutrophils # (1.3-7.7) k/uL Monocytes # (0-1.0) k/uL Chloride (98-107) mmol/L Glucose (74-99) mg/dL POC Glucose (mg/dL) 142 H (70-110) mg/dL Plasma Lactic Acid Jeremy 3.0 H* 3.0 H* (0.7-2.0) mmol/L TIBC (228-460) UG/DL Transferrin (204.0-354.0) mg/dL Ferritin (10.0-291.0) ng/mL Vitamin D 25-Hydroxy (30.0-100.0) ng/mL PTH Intact (14.0-72.0) pg/mL 07/15/24 07/15/24 07/15/24 Range/Units 00:31 03:52 03:52 WBC 36.8 H (3.8-10.6) k/uL RBC 3.51 L (3.80-5.40) m/uL Hgb 10.1 L (11.4-16.0) gm/dL Hct 31.2 L (34.0-46.0) % RDW 15.8 H (11.5-15.5) % Plt Count 485 H (150-450) k/uL Neutrophils # 30.2 H (1.3-7.7) k/uL Monocytes # 1.2 H (0-1.0) k/uL Chloride 109 H (98-107) mmol/L Glucose 102 H (74-99) mg/dL POC Glucose (mg/dL) (70-110) mg/dL Plasma Lactic Acid Jeremy 2.3 H* (0.7-2.0) mmol/L TIBC (228-460) UG/DL Transferrin (204.0-354.0) mg/dL Ferritin (10.0-291.0) ng/mL Vitamin D 25-Hydroxy (30.0-100.0) ng/mL PTH Intact (14.0-72.0) pg/mL Microbiology - Last 24 Hours (Table) 07/14/24 14:20 Gram Stain - Preliminary Bronchial Washings - Right Bronchial Washings Culture - Preliminary 07/13/24 16:34 Blood Culture - Preliminary Blood Assessment and Plan Assessment: Impression: Mediastinal mass highly suggestive of malignancy History of chronic cough, x 3 months, and significant weight loss History of underlying COPD, tobacco dependence syndrome History of difficulty swallowing could be related to mediastinal mass history of degenerative joint disease and right hip replacement in January 17, 2002 4 Recommendation: Discussed and reviewed with the patient the findings on her bronchoscopy Consider discharge planning and outpatient PET scan Follow-up on outpatient basis Patient to go on prednisone 30 mg tapered over the next 2 weeks if discharged home today. Will continue to follow-up Time with Patient: Less than 30
[2024-07-15 16:15] LABS: Glucose,Whole Blood 136 mg/dL (70-110)
--- NOTE | 2024-07-15 17:10 | P.DS ---
Providers Date of admission: 07/13/24 18:49 Attending physician: Karon Thompson MD Consults: 07/14/24 07:16 Consult Physician Stat Consulting Provider: Jaycob Proctor Consult Reason/Comments: Lung malignancy Do you want consulting provider notified?: Yes 07/14/24 07:17 Consult Physician Stat Consulting Provider: Ugo Anguiano Consult Reason/Comments: Lung malignancy - Bronchoscopy and sampling Do you want consulting provider notified?: Yes Primary care physician: [place] [facility] Course: Hospital Course: Patient is a 63-year-old female with COPD, GERD, history of pneumonia presented to the emergency department with shortness of breath. Patient reports having shortness of breath for the past 3 months. It has worsened over the past week which prompted the patient to come to ED for evaluation. Patient stats she cannot walk very far (no more than 10 feet) without getting short of breath. Patient has visited urgent care several times over the past 3 months and received 3 rounds of antibiotics and 3 rounds of steroids which did not help her symptoms. Patient also endorsed coughing and clear sputum production. Patient also endorsed losing about 35 pounds since January of this year. Reports poor appetite. Currently reports pain in her neck, jaw, and right shoulder blade. Denies fever, chills, chest pain, nausea, vomiting, abdominal pain, hematochezia/melena, diarrhea/constipation, lightheadedness, dizziness, no upper or lower extremity muscle tingling or numbness sensation. Vitals on admission temperature 98.1, heart rate 84, respiratory rate 20, blood pressure 130/60, O2 sat 100% on nasal cannula 2 L/min. EKG independently interpreted as sinus rhythm with ventricular rate of 96 bpm, QTc interval 370 ms, ST deviation and moderate T wave abnormality, consider anterior ischemia. CT angio of the chest shows no evidence of pulmonary embolism. Hepatic steatosis. Mediastinal mass extending down the trachea towards the right pulmonary hilum measuring 5.7 x 4.6 x 7.7 cm findings most compatible with malignancy. Oncologic workup recommended with bronchoscopy and tissue sampling. No evidence for metastatic disease at this time. Attention on follow-up PET/CT. Labs on admission show WBC 40.6, hemoglobin 12, hematocrit 37.6, platelets 547, neutrophils 33.29, PT 11.2, PTT 20.3, INR 1.0, sodium 139, potassium 3.5, chloride 104, carbon dioxide 25, BUN 1 9, creatinine 0.84, glucose 115, lactic acid 2.3, calcium 10.6, troponin less than 0.012, BNP 889In the ED patient was treated with a bolus of normal saline, Solu-Medrol 125 mg IV x 1, DuoNeb 3 mL x 1, ceftriaxone 1 g IV x 1, azithromycin 500 mg IV x 1. PTH 8.7, TSH 0.676, 25-hydroxy vitamin D 24.1, LDH 232, iron 71, TIBC 199, % saturation 35.68, transferrin 142, ferritin 403. Pulmonology and on cology were consulted. Patient underwent bronchoscopy with multiple biopsies and tolerated the procedure well. Patient reports improved cough with steroids. Patient is medically optimized for discharge. Medications changes upon discharge: Start prednisone 50 mg PO daily for 10 days. Patient should follow- up with primary care provider, superintendent stations, and oncologist. Final Diagnosis: #. Dyspnea, less likely COPD exacerbation #. Mediastinal mass #. History of COPD, not in acute exacerbation #. Leukocytosis, likely due to underlying malignancy #. Thrombocytosis, likely due to underlying malignancy #. Normocytic anemia #. Hypercalcemia, possibly due to underlying malignancy #. Lactic acidosis, resolved #. GERD Physical examination: Vital signs reviewed General: Nontoxic, no distress, appears stated age, well-appearing Derm: Warm, dry, intact Head: Atraumatic, normocephalic, symmetric Eyes: EOMI, anicteric sclera Mouth: No lip lesion, mucus membranes moist Cardiovascular: S1-S2 regular, no murmur Lungs: CTA bilateral, no rhonchi, no rales, no accessory muscle use Abdominal: Soft, non-tender to palpation Extremities: No cyanosis, clubbing, or pedal edema Neuro: Alert, oriented x 3, gross neurological examination did not reveal any focal deficits. Cranial nerves II to XII grossly intact. Psych: Appropriate affect and mood I saw and evaluated the patient during the villeda and critical portions of this encounter, and discussed the case in detail with the resident author of this note, I agree with the Assessment and Plan, and my changes, if any, are highlighted in blue. Patient Condition at Discharge: Stable Plan - Discharge Summary Discharge Rx Participant: No New Discharge Prescriptions: New predniSONE 50 mg PO DAILY #10 tab Continue Omeprazole 20 mg PO DAILY Amitriptyline HCl 25 mg PO HS Albuterol Inhaler [Ventolin Hfa Inhaler] 2 puff INHALATION RT-Q4H PRN PRN Reason: Shortness Of Breath Umeclidinium Brm/Vilanterol Tr [Anoro Ellipta 62.5-25 Mcg INH] 1 puff INHALATION RT-DAILY Ipratropium-Albuterol Nebulize [Duoneb 0.5 mg-3 mg/3 ml Soln] 3 ml INHALATION RT-QID PRN PRN Reason: Shortness Of Breath traMADol HCL 50 mg PO TID PRN PRN Reason: Pain Cetirizine HCl 10 mg PO HS L.acidoph,Paracasei, B.lactis [Probiotic] 1 cap PO HS Discharge Medication List Albuterol Inhaler [Ventolin Hfa Inhaler] 2 puff INHALATION RT-Q4H PRN 02/04/24 [History] Amitriptyline HCl 25 mg PO HS 02/04/24 [History] Cetirizine HCl 10 mg PO HS 02/04/24 [History] Omeprazole 20 mg PO DAILY 02/04/24 [History] traMADol HCL 50 mg PO TID PRN 02/04/24 [History] Ipratropium-Albuterol Nebulize [Duoneb 0.5 mg-3 mg/3 ml Soln] 3 ml INHALATION RT-QID PRN 07/13/24 [History] L.acidoph,Paracasei, B.lactis [Probiotic] 1 cap PO HS 07/13/24 [History] Umeclidinium Brm/Vilanterol Tr [Anoro Ellipta 62.5-25 Mcg INH] 1 puff INHALATION RT-DAILY 07/13/24 [History] predniSONE 50 mg PO DAILY #10 tab 07/15/24 [Rx] Follow up Appointment(s)/Referral(s): Errol Cruz MD [STAFF PHYSICIAN] - 1 Week Zulma Wooten MD [STAFF PHYSICIAN] - 1 Week Sosa Galvin MD [Primary Care Provider] - 1-2 days Patient Instructions/Handouts: Pneumonitis (DC) Activity/Diet/Wound Care/Special Instructions: Please follow up with primary care provider, superintendent stations, and oncologist. Discharge Disposition: HOME SELF-CARE
[2024-07-18 01:26] LABS: Methylmalonic Acid 0.18 umol/L (<0.40)
--- NOTE | 2024-07-21 12:33 | CDI ---
Documentation Clarification Form Date: 07/21/2024 12:02:59 PM From: Talia Sanchez Phone: Admit Date: 07/13/2024 06:49:00 PM Patient Name: Britany Blount Visit Number: [id number] Discharge Date: 07/15/2024 04:44:00 PM ATTENTION: The Clinical Documentation Specialists (CDI) and [facility] Coding Staff appreciate your assistance in clarifying documentation. Please respond to the clarification below the line at the bottom and electronically sign. The CDI & [facility] Coding staff will review the response and follow-up if needed. Please note: Queries are made part of the Legal Health Record. If you have any questions, please contact the author of this message via ITS. Doctor/Provider: Zulma Wooten The final diagnosis of the pathology report & PAP stain results are stated below. Coding guidelines do not allow coding professionals to code based on pathology results; therefore, clarification is requested. History/risk factors: COPD, GERD, Psoriatic arthritis, history on PNA, quit smoking 2 months prior to this admission Clinical Indicators: Patient presented on 07/13 with persistent cough and SOB despite 3 different courses of antibiotics and steroids. Found to have Mediastinal mass on chest CT. Underwent Bronchoscopy with biopsies of Maria Isbael, Right upper lobe, and anterior mediastinal/anterior carinal lymph nodes. Discharge summary states "Mediastinal mass extending down the trachea towards the right pulmonary hilum measuring 5.7 x 4.6 x 7.7 cm findings most compatible with malignancy." 07/14 PAP stain results: A. LUNG, BRONCHOALVEOLAR LAVAGE: Rare atypical cells suspicious for non-small cell carcinoma in a background of reactive bronchial lining cells, macrophages and mixed inflammatory cells. B. LUNG, RIGHT UPPER LOBE, FINE NEEDLE ASPIRATE: Hypocellular specimen consisting of blood and inflammatory cells.Non-diagnostic of neoplasm. Notes - While there are rare atypical cells present in part A, the specimen is insufficient for definitive diagnosis due to the paucity of the atypical cell population and lack of cellularity in the cell block. Recommend clinical correlation and possible repeat biopsy as clinically indicated. 07/17 Path report results: LUNG, RIGHT MARIA ISABEL AND RIGHT UPPER LOBE, BIOPSY: Benign bronchial mucosa with focal squamous metaplasia, submucosal acute and chronic inflammation and fibrosis.Non-diagnostic of neoplasm Final Diagnosis: Mediastinal mass, Leukocytosis, likely due to underlying malignancy, Thrombocytosis, likely due to underlying malignancy, Normocytic anemia, Hypercalcemia, possibly due to underlying malignancy Treatment: Prednisone 50 mg daily Please clarify if there is a more appropriate diagnosis after review of the path reports above: [ X ] Malignant neoplasm of anterior mediastinum [ ] Neoplasm of uncertain histology of medistinum [ ] Mediastinal mass [ ] Other (please specify) [ ] Unable to determine MTDD
== END 2024-07-15 16:44 | disposition home or self-care (01) | DRG 181 ==
LOC: EC 14:54 → 3SCARD 18:49
PROVIDERS: ADMIT Internal Medicine; ATTEND Internal Medicine
PROC: 0BB48ZX Excision of Right Upper Lobe Bronchus, Via Natural or Artificial Opening Endoscopic, Diagnostic (ICD-10-PCS; 2024-07-14)
PROC: 0BB18ZX Excision of Trachea, Via Natural or Artificial Opening Endoscopic, Diagnostic (ICD-10-PCS; 2024-07-14)
PROC: 0BD28ZX Extraction of Carina, Via Natural or Artificial Opening Endoscopic, Diagnostic (ICD-10-PCS; 2024-07-14)
PROC: 0BD18ZX Extraction of Trachea, Via Natural or Artificial Opening Endoscopic, Diagnostic (ICD-10-PCS; 2024-07-14)
PROC: 07D78ZX Extraction of Thorax Lymphatic, Via Natural or Artificial Opening Endoscopic, Diagnostic (ICD-10-PCS; 2024-07-14)
PROC: 0B9C8ZX Drainage of Right Upper Lung Lobe, Via Natural or Artificial Opening Endoscopic, Diagnostic (ICD-10-PCS; 2024-07-14)
PROC: 0BB28ZX Excision of Carina, Via Natural or Artificial Opening Endoscopic, Diagnostic (ICD-10-PCS; principal; 2024-07-14 09:45)
DX: C38.1 Malignant neoplasm of anterior mediastinum (principal); E87.20 Acidosis, unspecified; J44.9 Chronic obstructive pulmonary disease, unspecified; K76.0 Fatty (change of) liver, not elsewhere classified; L40.50 Arthropathic psoriasis, unspecified; R73.9 Hyperglycemia, unspecified; G47.00 Insomnia, unspecified; D64.9 Anemia, unspecified; D75.838 Other thrombocytosis; E83.52 Hypercalcemia; K21.9 Gastro-esophageal reflux disease without esophagitis; Z96.641 Presence of right artificial hip joint; Z87.891 Personal history of nicotine dependence; Z87.01 Personal history of pneumonia (recurrent); Z88.6 Allergy status to analgesic agent
CPT/HCPCS: 31625; 36415; 71275; 80048; 80053; 82306; 82330; 82607; 82652; 82728; 82747; 83540; 83550; 83605; 83615; 83880; 83921; 83970; 84443; 84484; 85025; 85610; 85730; 87040; 87070; 87102; 87116; 87205; 87206; 88108; 88305; 93005; 94640; 96361; 96365; 96366; 96375; 99291

== ENCOUNTER 2024-07-27 13:10 | Day surgery (SDC) | payer OTHER ==
[2024-07-21 14:11] VITALS: BMI 28.6
[~2024-07-27 13:10] MED LIST changes: +HYDROmorphone 0.5 MG/0.5 ML SYRINGE IVP PRN; +LACTATED RINGERS 1,000 ML IV SCH; -MELOXICAM 7.5 MG TAB PO PRN; -TRANEXAMIC 1,000 MG/100ML-NACL 1,000 MG in SALINE 1 100ML.BAG IVPB PRN
[2024-07-27] MEDS: SODIUM CHLORIDE 0.9% 1,000 ML IV ONE (13:33)
[2024-07-27] MEDS: ONDANSETRON 4 MG/2 ML VIAL IVP ONE (13:54)
[2024-07-27] MEDS ORDERED: DEXAMETHASONE SOD PHOSPHATE 4 MG/ML 1 ML VIAL ONE (14:52)
[2024-07-27] MEDS ORDERED: SUCCINYLCHOLINE CHLORIDE 200 MG/10 ML VIAL IV ONE (14:52)
[2024-07-27] MEDS ORDERED: PROPOFOL 10 MG/ML 20 ML VIAL IV ONE (14:52)
[2024-07-27] MEDS ORDERED: NEOSTIGMINE 1 MG/ML 10 ML VIAL ONE (14:52)
[2024-07-27] MEDS ORDERED: LIDOCAINE 1% INJ 10MG/ML (20 ML MDV) ONE (14:52)
[2024-07-27] MEDS ORDERED: GLYCOPYRROLATE 0.2 MG/ML 2 ML VIAL ONE (14:52)
[2024-07-27] MEDS ORDERED: ROCURONIUM 10 MG/ML (5 ML VIAL) IV ONE (14:52)
[2024-07-27] MEDS ORDERED: PHENYLEPHRINE-0.9% NACL SYG 1,000 MCG/10 ML SYRINGE ONE (14:52)
[2024-07-27] MEDS ORDERED: LIDOCAINE 4% LTA KIT (4 ML) TOPICAL ONE (14:52)
[2024-07-27] MEDS ORDERED: diphenhydrAMINE 50 MG/ML 1 ML VIAL ONE (14:52)
[2024-07-27 16:19] VITALS: TEMP 97.6
--- NOTE | 2024-07-27 16:59 | XR ---
EXAMINATION TYPE: XR chest 1V portable DATE OF EXAM: 07/27/2024 4:54 PM COMPARISON: 07/13/2024 CLINICAL INDICATION: Female, 63 years old with history of post-bronch; TECHNIQUE: XR chest 1V portable Frontal view of the chest. FINDINGS: Lungs/Pleura: There is no evidence of pleural effusion, focal consolidation, or pneumothorax. Pulmonary vascularity: Unremarkable. Heart/mediastinum: Cardiomediastinal silhouette is unremarkable. Musculoskeletal: No acute osseous pathology. IMPRESSION: Right upper medial lung consolidation/mass, no evidence for pneumothorax [facility], , 07/27/2024 4:56 PM
[2024-07-27 17:25] VITALS: PULSE 103
[2024-07-27 17:41] VITALS: BP 90/55; RESP 20
--- NOTE | 2024-07-27 18:59 | P.PCN ---
Date of Procedure: 07/27/24 Preoperative Diagnosis: Mediastinal mass Postoperative Diagnosis: Large mediastinal mass causing mass effect over the anterior tracheal wall, angy and right mainstem bronchus. Endobronchial irregularities and endobronchial polypoid lesions involving the distal trachea involving the anterior wall, angy, and proximal right mainstem bronchus. Procedure(s) Performed: Flexible bronchoscopy Endobronchial biopsy of a tracheal tumor Endobronchial ultrasound Endobronchial ultrasound-guided transbronchial needle aspirate of mediastinal mass Anesthesia: GETA Surgeon: Ugo Anguiano Estimated Blood Loss (ml): 0 Pathology: other Condition: stable Disposition: same day Operative Findings: . This procedure was done under general anesthesia. The patient was intubated and placed on mechanical ventilator in the usual fashion by the anesthesia team. The patient was intubated by #8 orotracheal tube Following intubation, the flexor bronchoscope was introduced for an airway inspection. Airway inspection showed significant abnormalities in the distal trachea where there was mass effect and compression of the anterior tracheal wall and narrowing of the right mainstem bronchus due to a large mediastinal mass. At the same time, there was significant endobronchial irregularities and mild disease with areas of nodular growth involving the anterior tracheal wall, main angy, and right mainstem bronchus causing significant narrowing of the right mainstem bronchus and the right upper lobe bronchus. The mucosa was quite friable and irregular and looks quite abnormal. I was able to pass my flexible bronchoscope into the right mainstem bronchus and visualized the various segments of the right upper lobe. Bronchus intermedius proximally was narrowed and distal it was patent in the right middle lobe bronchus and the right lower bronchus were noted and the various segments in the right middle lobe and right lower lobe were inspected. Examination of the left mainstem bronchus was within normal limits and the rest of the left sided examination involving the left upper lobe proximal left lobe bronchus and the various segments on the left were patent. Based on my direct visualization, distal trachea was being tapered off due to extrinsic compression endobronchial tumor and was narrowed by around 20 to 30% and there was considerable narrowing of the right mainstem bronchus in the order of more than 50%. Endobronchial biopsies of the mucosal growth from the tracheal wall was obtained using a forceps. Endobronchial ultrasound was inserted and visualization of the mediastinum under endobronchial ultrasound revealed a complex density mediastinal mass that was quite large extending from the anterior tracheal area and extending to the right paratracheal and hilar and subcarinal regions. The echodensity was quite variable probably indicating an underlying necrosis. Using a 22-gauge this shot needle, a total of 6 transbronchial needle aspirates of the mediastinal mass was done under direct ultrasonic visualization. The samples were collected into formalin and lymphoma solution. The endoscopic ultrasound was removed. The flexible bronchoscope was inserted and therapeutic airway suctioning was done. The patient was extubated and the patient was transferred to recovery in stable condition. No complications.
== END 2024-07-27 17:56 | disposition home or self-care (01) ==
LOC: ORWHC2ENDO 13:10
PROVIDERS: ATTEND Internal Medicine Critical Care Medicine
DX: J98.4 Other disorders of lung (principal); J44.9 Chronic obstructive pulmonary disease, unspecified; H91.90 Unspecified hearing loss, unspecified ear; L40.50 Arthropathic psoriasis, unspecified; F41.9 Anxiety disorder, unspecified; F90.9 Attention-deficit hyperactivity disorder, unspecified type; K21.9 Gastro-esophageal reflux disease without esophagitis; Z90.49 Acquired absence of other specified parts of digestive tract; Z98.890 Other specified postprocedural states; Z79.899 Other long term (current) drug therapy; Z79.1 Long term (current) use of non-steroidal anti-inflammatories (NSAID)
CPT/HCPCS: 71045; 31629; 31625; 31653; 31628; J0330; J1200; J1100; J2710; J2405; J2003; J2704; J2371; J1596; 88305

== ENCOUNTER → 2024-07-28 | Outpatient (CLI) | payer OTHER ==
--- NOTE | 2024-07-29 15:56 | PE ---
EXAMINATION TYPE: PET CT fusion skull to thigh DATE OF EXAM: 07/28/2024 COMPARISON: CT chest 07/13/2024 Prior PET/CT: None CLINICAL INDICATION: Female, 63 years old with history of LUNG NODULE R91.1, TECHNIQUE: Following the intravenous administration of 9.71 mCi of F-18 FDG, whole body images are p erformed from the skull base to the midthigh. Images are reviewed on the computer in the coronal, ax ial, and sagittal planes. Reconstructed rotating images are created on independent workstation and r eviewed on the computer. A localization and attenuation correction CT is performed in conjunction w ith the PET scan. DLP: 640.73 mGycm SCAN: Initial Blood glucose: 38 mg/dL Average Mediastinum SUV: 2.23 Average Liver SUV: 2.28 FINDINGS: NECK: No abnormal uptake. There is some uptake within the left neck muscle, likely due to muscle activity. THORAX: There is marked uptake within the mediastinal mass an SUV of 9.15. No suspicious hilar or med iastinal lymph nodes identified. ABDOMEN: No abnormal uptake PELVIS: No abnormal uptake OSSEOUS STRUCTURES: There are some areas of uptake within the midthoracic spine with an SUV of 6.86, example image 14, suspicious for metastatic disease. There is an uptake suspicious for metastatic les ion within the inferior posterior right sternum, image 105, SUV 5.45. LOCALIZATION CT: Mediastinal mass measures 7.3 x 6.3 cm. COMPARISON: Previous mediastinal mass size was 6.1 x 5.0 cm 07/13/2024. IMPRESSION: 1. Intense uptake within the mediastinal mass. No mediastinal or hilar metastasis identified. 2. There is some scattered areas of uptake within the thoracic vertebral bodies suspicious for metast asis. There may be some sternal metastasis as well inferiorly. [facility], , 07/29/2024 3:53 PM
== END | disposition home or self-care (01) ==
LOC: RADPETMAIN 12:51
PROVIDERS: ATTEND Internal Medicine Hematology & Oncology
DX: R22.2 Localized swelling, mass and lump, trunk (principal)
CPT/HCPCS: 78815; A9552

== ENCOUNTER → 2024-08-03 | Outpatient (CLI) | payer OTHER ==
--- NOTE | 2024-08-03 17:38 | CT ---
EXAMINATION TYPE: CT brain w con DATE OF EXAM: 08/03/2024 4:58 PM COMPARISON: 07/28/2024 CLINICAL INDICATION: Female, 63 years old with history of C83.30 DIFFUSE LARGE B-CELL LYMPHOMA, UNSPE CIFIED, DIFFUSE LARGE B-CELL LYMPHOMA, UNSPECIFIED. TECHNIQUE: CT of the brain is performed utilizing 3 mm thick sections through the posterior fossa and 3 mm thick sections through the remaining calvarium. Study is performed within 24 hours of arrival to the hospital. Contrast used:100ml mL of Isovue 300 with IV Contrast, (none if empty) CT DLP: 1098.8 mGycm, Automated exposure control for dose reduction was used. FINDINGS: No abnormal hyperdensity is present to suggest an acute intracranial hemorrhage. No mass lesion is evident. No acute infarcts are evident. No vasogenic edema identified. Ventricles and sulci are appropriate for the patient age. No abnormal enhancement is evident. Paranasal sinuses and mastoid air cells within the [id number] are clear. IMPRESSION: 1. No acute intracranial process. Follow up MRI can be performed as clinically indicated. [facility], , 08/03/2024 5:35 PM
== END | disposition home or self-care (01) ==
LOC: RADCTMAIN 15:49
PROVIDERS: ATTEND Internal Medicine
DX: C83.30 Diffuse large B-cell lymphoma, unspecified site (principal)
CPT/HCPCS: 70460; Q9967

== ENCOUNTER 2024-08-14 22:31 | Inpatient (IN) | payer OTHER ==
--- NOTE | 2024-08-14 23:06 | ED ---
General Adult HPI - General Source: patient, family Mode of arrival: wheelchair Limitations: no limitations <Sukumar Savage - Last Filed: 08/14/24 23:09> <Jose Luis Barkley - Last Filed: 08/15/24 02:01> - General Stated complaint: Abn Labs - Cancer pt Time Seen by Provider: 08/14/24 23:06 - History of Present Illness Initial comments: 63-year-old female with current lung cancer presenting after being told by her oncologist that she had severely elevated white blood cell count and calcium. Patient has been feeling weak today. She was later called by her oncologist from [facility] and were told to come to the ER due to her labs. (Sukumar Savage) - Related Data Home Medications Medication Instructions Recorded Confirmed Albuterol Inhaler [Ventolin Hfa 2 puff INHALATION RT-Q4H PRN 02/04/24 07/27/24 Inhaler] Amitriptyline HCl 25 mg PO HS 02/04/24 07/27/24 Cetirizine HCl 10 mg PO HS 02/04/24 07/27/24 Omeprazole 20 mg PO DAILY 02/04/24 07/27/24 traMADol HCL 50 mg PO TID PRN 02/04/24 07/27/24 Ipratropium-Albuterol Nebulize 3 ml INHALATION RT-QID PRN 07/13/24 07/27/24 [Duoneb 0.5 mg-3 mg/3 ml Soln] L.acidoph,Paracasei, B.lactis 1 cap PO HS 07/13/24 07/27/24 [Probiotic] Umeclidinium Brm/Vilanterol Tr 1 puff INHALATION RT-DAILY 07/13/24 07/27/24 [Anoro Ellipta 62.5-25 Mcg INH] Previous Rx's Medication Instructions Recorded predniSONE 50 mg PO DAILY #10 tab 07/15/24 Allergies Allergy/AdvReac Type Severity Reaction Status Date / Time lactose Allergy Unknown Verified 07/27/24 13:39 mold Allergy Unknown Verified 07/27/24 13:39 nickel Allergy Rash/Hives Verified 07/27/24 13:39 NSAIDS (Non-Steroidal AdvReac Unknown Verified 07/27/24 13:39 Anti-Inflamma dust Allergy Unknown Uncoded 07/27/24 13:39 Review of Systems ROS Other: All systems not noted in ROS Statement are negative. <Sukumar Savage - Last Filed: 08/14/24 23:09> ROS Other: All systems not noted in ROS Statement are negative. <Jose Luis Barkley - Last Filed: 08/15/24 02:01> ROS Statement: Those systems with pertinent positive or pertinent negative responses have been documented in the HPI. Past Medical History Past Medical History: COPD, GERD/Reflux, Hearing Disorder / Deafness, Pneumonia, Skin Disorder Additional Past Medical History / Comment(s): psoriatic arthritis, right ear deaf, psoriasis hands feet History of Any Multi-Drug Resistant Organisms: None Reported Past Surgical History: Back Surgery, Breast Surgery, Cholecystectomy, Joint Replacement, Orthopedic Surgery, Tubal Ligation Additional Past Surgical History / Comment(s): R hip replacement January 2024. 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, arthroscopy bilateral knees, left foot bone spur, ablation to back , injections to back, breast bx left, titanium tag, egd ,colonoscopy Past Anesthesia/Blood Transfusion Reactions: No Reported Reaction Additional Past Anesthesia/Blood Transfusion Reaction / Comment(s): no blood transfusion Smoking Status: Former smoker <Sukumar Savage - Last Filed: 08/14/24 23:09> General Exam <Sukumar Savage - Last Filed: 08/14/24 23:09> General appearance: alert, in no apparent distress Head exam: Present: atraumatic, normocephalic Eye exam: Present: normal appearance, PERRL ENT exam: Present: mucous membranes dry Neck exam: Present: normal inspection. Absent: tenderness Respiratory exam: Present: wheezes, rhonchi, decreased breath sounds. Absent: respiratory distress Cardiovascular Exam: Present: regular rate, normal rhythm GI/Abdominal exam: Present: soft. Absent: distended, tenderness, guarding Extremities exam: Present: normal inspection Neurological exam: Present: alert, oriented X3 Psychiatric exam: Present: normal affect, normal mood Skin exam: Present: warm, dry, intact. Absent: cyanosis, diaphoretic <Jose Luis Barkley - Last Filed: 08/15/24 02:01> - General Exam Comments Initial Comments: Visual Physical Exam Vital signs reviewed General: Well-appearing, nontoxic, no acute distress. Head: Normocephalic, atraumatic Eyes: PERRLA, EOMI ENT: Airway patent Chest: Nonlabored breathing Skin: No visual rash, normal skin tone Neuro: Alert and oriented 3 Musculoskeletal: No gross abnormalities (Sukumar Savage) Course Vital Signs 08/14/24 23:19 Temperature 97.6 F Pulse Rate 90 Respiratory 18 Rate Blood Pressure 91/55 O2 Sat by Pulse 100 Oximetry Medical Decision Making <Sukumar Savage - Last Filed: 08/14/24 23:09> - Lab Data Result diagrams: 08/15/24 01:00 08/15/24 01:00 <Jose Luis Barkley - Last Filed: 08/15/24 02:01> - Medical Decision Making I performed the quick note portion of this visit, electronically signed Sukumar Savage PA-C (Sukumar Savage) Was pt. sent in by a medical professional or institution ([facility], [facility] [facility], urgent care, hospital, or residential...) When possible be specific @ -[Sent in by her oncologist for abnormal labs Did you speak to anyone other than the patient for history (EMS, parent, family, police, friend...)? What history was obtained from this source @Patient's Did you review nursing and triage notes (agree or disagree)? Why? @ -I reviewed and agree with nursing and triage notes Were old charts reviewed (outside hosp., previous admission, EMS record, old EKG, old radiological studies, urgent care reports/EKG's, residential records)? Report findings @ -No old charts were reviewed Differential Diagnosis (chest pain, altered mental status, abdominal pain women, abdominal pain men, vaginal bleeding, weakness, fever, dyspnea, syncope, headache, dizziness, GI bleed, back pain, seizure, CVA, palpatations, mental health, musculoskeletal)? @ -Not applicable EKG interpreted by me (3pts min.). @ -[Sinus rhythm, T wave inversion and ST segment depression in V2 V3 rate of 88, KS interval 142, QRS duration 81, QTc 359 X-rays interpreted by me (1pt min.). @ -None done CT interpreted by me (1pt min.). @ -None done U/S interpreted by me (1pt. min.). @ -None done What testing was considered but not performed or refused? (CT, X-rays, U/S, labs)? Why? @ -None What meds were considered but not given or refused? Why? @ -None Did you discuss the management of the patient with other professionals (professionals i.e. , PA, [employer], lab, RT, psych nurse, social director, home care music therapist, teacher, parking regulation enforcement officer, rehabilitation caseworker)? Give summary @ -Case discussed with Dr. Saavedra who will admit Was smoking cessation discussed for >3mins.? @ -No Was critical care preformed (if so, how long)? @ -No Were there social determinants of health that impacted care today? How? (Homelessness, low income, unemployed, alcoholism, drug addiction, tr ansportation, low edu. Level, literacy, decrease access to med. care, halfway, rehab)? @ -No Was there de-escalation of care discussed even if they declined (Discuss DNR or withdrawal of care, Hospice)? DNR status @ -No What co-morbidities impacted this encounter? (DM, HTN, Smoking, COPD, CAD, Cancer, CVA, ARF, Chemo, Hep., AIDS, mental health diagnosis, sleep apnea, morbid obesity)? @ -Squamous cell carcinoma of the lung Was patient admitted / discharged? Hospital course, mention meds given and route, prescriptions, significant lab abnormalities, going to OR and other pertinent info. @ -63-year-old female with squamous cell lung cancer chest beginning planned treatment with radiation and chemotherapy. Patient presenting with abnormal labs. Patient has a leukocytosis which has been trending up for the past 6 months. She also has a calcium of 13.3. She is given IV hydration for hyper calcemia. She will be admitted to internal medicine with both oncology and nephrology on consult. Hypercalcemia Undiagnosed new problem with uncertain prognosis? @ -No Drug Therapy requiring intensive monitoring for toxicity (Heparin, Nitro, Insulin, Cardizem)? @ -No Were any procedures done? @ -No Diagnosis/symptom? @ -[Hypercalcemia, Leukocytosis Acute, or Chronic, or Acute on Chronic? @ -Acute on chronic Uncomplicated (without systemic symptoms) or Complicated (systemic symptoms)? @ -[default Side effects of treatment? @ -No Exacerbation, Progression, or Severe Exacerbation? @ -No Poses a threat to life or bodily function? How? (Chest pain, USA, GA, pneumonia, PE, COPD, DKA, ARF, appy, cholecystitis, CVA, Diverticulitis, Homicidal, Suicidal, threat to staff... and all critical care pts) @ -Yes, hypercalcemia (Jose Luis Barkley) - Lab Data Lab Results 08/15/24 08/15/24 08/15/24 Range/Units 01:00 01:00 01:00 WBC 62.7 H* (3.8-10.6) k/uL RBC 4.19 (3.80-5.40) m/uL Hgb 12.1 (11.4-16.0) gm/dL Hct 37.5 (34.0-46.0) % MCV 89.6 (80.0-100.0) fL MCH 28.9 (25.0-35.0) pg MCHC 32.2 (31.0-37.0) g/dL RDW 15.9 H (11.5-15.5) % Plt Count 405 (150-450) k/uL MPV 7.1 Neutrophils % (Manual) 85 % Band Neuts % (Manual) 7 % Lymphocytes % (Manual) 8 % Monocytes % (Manual) 1 % Neutrophils # (Manual) 57.60 H (1.3-7.7) k/uL Lymphocytes # (Manual) 5.02 H (1.0-4.8) k/uL Monocytes # (Manual) 0.63 (0-1.0) k/uL Nucleated RBCs 0 (0-0) /100 WBC Manual Slide Review Performed RBC Morphology Normal Sodium 132 L (137-145) mmol/L Potassium 4.7 (3.5-5.1) mmol/L Chloride 95 L (98-107) mmol/L Carbon Dioxide 31 H (22-30) mmol/L Anion Gap 6 mmol/L BUN 30 H (7-17) mg/dL Creatinine 0.89 (0.52-1.04) mg/dL Est GFR (CKD-EPI)AfAm 79 (>60 ml/min/1.73 sqM) Est GFR (CKD-EPI)NonAf 69 (>60 ml/min/1.73 sqM) Glucose 94 (74-99) mg/dL Plasma Lactic Acid Jeremy 2.6 H* (0.7-2.0) mmol/L Calcium 13.3 H* (8.4-10.2) mg/dL Magnesium 2.3 (1.6-2.3) mg/dL Total Bilirubin 0.4 (0.2-1.3) mg/dL AST 21 (14-36) U/L ALT 23 (4-34) U/L Alkaline Phosphatase 142 H (38-126) U/L Total Protein 6.2 L (6.3-8.2) g/dL Albumin 3.3 L (3.5-5.0) g/dL Disposition <Sukumar Savage - Last Filed: 08/14/24 23:09> Is patient prescribed a controlled substance at d/c from ED?: No Time of Disposition: 02:01 <Jose Luis Barkley - Last Filed: 08/15/24 02:01> Clinical Impression: Hypercalcemia, Leukocytosis Disposition: ADMITTED IP TO THIS HOSP Condition: Stable Referrals: Sosa Galvin MD [Primary Care Provider] - 1-2 days
[2024-08-15 01:16] LABS: HCT 37.5 % (34.0-46.0); HGB 12.1 gm/dL (11.4-16.0); MCH 28.9 pg (25.0-35.0); MCHC 32.2 g/dL (31.0-37.0); MCV 89.6 fL (80.0-100.0); Mean Platelet Volume 7.1; Platelet Count 405 k/uL (150-450); RBC 4.19 m/uL (3.80-5.40); RDW 15.9 % (11.5-15.5)
[2024-08-15 01:32] LABS: ALT 23 U/L (4-34); AST 21 U/L (14-36); African American GFR (CKD) 79 (>60 ml/min/1.73 sqM); Albumin 3.3 g/dL (3.5-5.0); Alkaline Phosphatase 142 U/L (38-126); Anion Gap 6 mmol/L; Blood Urea Nitrogen 30 mg/dL (7-17); Carbon Dioxide 31 mmol/L (22-30); Chloride 95 mmol/L (98-107); Glucose 94 mg/dL (74-99); Magnesium 2.3 mg/dL (1.6-2.3); Non-African American GFR(CKD) 69 (>60 ml/min/1.73 sqM); Potassium 4.7 mmol/L (3.5-5.1); Sodium 132 mmol/L (137-145); Total Bilirubin 0.4 mg/dL (0.2-1.3); Total Protein 6.2 g/dL (6.3-8.2)
[2024-08-15 01:39] LABS: WBC 62.7 k/uL (3.8-10.6)
[2024-08-15 01:42] LABS: Calcium 13.3 mg/dL (8.4-10.2)
[2024-08-15 01:47] LABS: Band Neutrophils % 7 %; Lymphocytes # (M) 5.02 k/uL (1.0-4.8); Monocytes # (M) 0.63 k/uL (0-1.0); Neutrophils % (M) 85 %; Nucleated Red Blood Cells 0 /100 WBC (0-0); RBC Morphology Normal; Total Cells Counted 200
[2024-08-15 01:49] LABS: Prothrombin Time 10.8 sec (10.0-12.5)
[2024-08-15] MEDS ORDERED: NALOXONE 0.4 MG/ML 1 ML VIAL IV PRN (01:56)
[2024-08-15] MEDS ORDERED: ACETAMINOPHEN TAB 325 MG TAB PO PRN (01:56)
[2024-08-15 01:58] LABS: Partial Thromboplastin Time 18.7 sec (22.0-30.0)
[2024-08-15] MEDS: SODIUM CHLORIDE 0.9% 1,000 ML IV ONE (02:04)
[2024-08-15] MEDS: SODIUM CHLORIDE 0.9% 1,000 ML IV SCH (02:05)
--- NOTE | 2024-08-15 03:54 | P.HPIM ---
History of Present Illness H&P Date: 08/15/24 Patient is a 63-year-old female with PMH of malignant mediastinal mass (following oncologist Dr. Cas Robledo at [facility] in [facility], currently not on chemoradiation), COPD on 2 L home oxygen, GERD, presents to the ER after being directed by her oncologist to ER for leukocytosis and hypercalcemia. Patient was found to have a large mediastinal mass on her previous hospital admission on 07/13/2024 for shortness of breath. 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 Patient is currently following oncologist Dr. Cas Robledo and is supposed to have her chemotherapy and radiation started this week. Patient has been feeling weak, dyspneic, lethargic and lightheaded from last couple days. Patient also had an episode of fall today. She felt weak in her legs while trying to get up from toilet seat and fell backward hitting the back of her head. Patient did not lose consciousness. Patient also reports worsening productive cough with greenish thick sputum. Denies fever and chills. She has been losing weight from last 6 months and have lost about 40 pounds. She is currently on 2 L of oxygen at home at all times. Appetite is generally poor because of dysphagia, nausea and chronic cough. She is also endorsing mild right sided chest pain especially worse with coughing. Denies any swelling the legs. Laboratory data: WBC 62.7, hemoglobin 12.1, hematocrit 37.5, MCV 89.6, platelet count 405, neutrophil count 57.60, lymphocyte count 5.02, PT 10.8, INR 1.0, APTT 18.7, sodium 132, potassium 4.7, chloride 95, bicarb 31, BUN 30, creatinine 0.89, lactic acid 2.6, calcium 13.3, magnesium 2.3, AST 21, ALT 23, alkaline phosphatase 142, albumin 3.3 Images: EKG shows normal sinus rhythm with ventricular rate of 88 bpm. ID interval 142 ms. QRS duration 81 ms. QTc 359 ms. Vitals: Temperature 97.6 F, pulse rate 90, respiratory 18, blood pressure 91/55, oxygen saturation 100% with 2 L nasal cannula Review of systems: Pertinent positives and negatives as discussed in HPI, a complete review of systems was performed and all other systems are negative. Social history: Tobacco: 1 pack/day for 45 years Alcohol: Occasionally Recreational drugs: None No recent travel Family History: Patient was adopted unsure of family history Physical examination: Vital signs reviewed General: non toxic, no distress, appears older than stated age, overweight Derm: no unusual rashes/lesions, warm Head: atraumatic, normocephalic, symmetric Eyes: EOMI, no lid lag, anicteric sclera, pupils equal round reactive to light ENT: Nose and ears atraumatic Neck: No cervical lymphadenopathy, trachea midline, supple Mouth: no lip lesion, mucus membranes moist Cardiovascular: S1S2 reg, no murmur, positive dorsalis pedis pulse bilateral, no edema Lungs: CTA bilateral, no rhonchi, no rales, no accessory muscle use, decreased breath sounds noted on right middle lung Abdominal: soft, nontender to palpation, no guarding Ext: muscle strength 5 out of 5 in all 4 extremities grossly, no gross muscle atrophy, no contractures, Neuro: CN II-XI grossly intact, no gross focal neuro deficits Psych: Alert, oriented, appropriate affect Assessment/Plan: This is a Patient is a 63-year-old female with PMH of malignant mediastinal mass (following oncologist Dr. 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 Case was discussed with the Emergency Room provider and decision was made to admit the patient for hypercalcemia and malignant mediastinal mass. 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 Continue monitor CBC Consult nephrology and oncology Order PTH, PTHRrp, 25 hydroxy vitamin D Continue cardiac telemetry #Reported history of fall at home Order CT head without contrast stat #History of COPD, not in exacerbation Patient saturating well at 100% with 2 L nasal cannula Reports increased cough with thick greenish sputum production for past couple of days Order chest x-ray and procalcitonin Low suspicion for pneumonia for now Continue monitor CBC Resume home albuterol inhaler and DuoNeb #Elevated lactic acidosis likely secondary to malignancy and dehydration Lactic acid 2.6 Continue with IV normal saline 100 cc/h Recheck lactic acid in a.m. #Hypovolemic hyponatremia secondary poor oral intake Sodium 132 Continue monitor sodium levels If sodium level does not improve suspect euvolemic hyponatremia secondary SIADH due to underlying malignancy #Transaminitis AST 21, ALT 23, ALP 142 Continue monitor BMP #Elevated bicarb in the setting of COPD Order ABG Continue monitor bicarb DVT prophylaxis: Lovenox 40 mg subcu daily GI prophylaxis: Resume home omeprazole 20 mg p.o. daily F: IV normal saline at 100 cc/h E: Replete as needed N: Heart healthy diet A: Patient ambulatory at baseline The patient is admitted with an anticipated more than than 2 midnight stay for evaluation of severe symptomatic hypercalcemia and malignancy CODE STATUS: Full code Discussed with: Patient Anticipated discharge place: Pending clinical course Dictation was produced using [employer] dictation software. Please excuse any grammatical, word or spelling errors. Past Medical History Past Medical History: COPD, GERD/Reflux, Hearing Disorder / Deafness, Pneumonia, Skin Disorder Additional Past Medical History / Comment(s): psoriatic arthritis, right ear deaf, psoriasis hands feet History of Any Multi-Drug Resistant Organisms: None Reported Past Surgical History: Back Surgery, Breast Surgery, Cholecystectomy, Joint Replacement, Orthopedic Surgery, Tubal Ligation Additional Past Surgical History / Comment(s): R hip replacement January 2024. 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, arthroscopy bilateral knees, left foot bone spur, ablation to back , injections to back, breast bx left, titanium tag, egd ,colonoscopy Past Anesthesia/Blood Transfusion Reactions: No Reported Reaction Additional Past Anesthesia/Blood Transfusion Reaction / Comment(s): no blood transfusion Past Psychological History: ADD/ADHD, Anxiety Smoking Status: Former smoker Medications and Allergies Home Medications Medication Instructions Recorded Confirmed Type Albuterol Inhaler [Ventolin Hfa 2 puff INHALATION RT-Q4H PRN 02/04/24 07/27/24 History Inhaler] Amitriptyline HCl 25 mg PO HS 02/04/24 07/27/24 History Cetirizine HCl 10 mg PO HS 02/04/24 07/27/24 History Omeprazole 20 mg PO DAILY 02/04/24 07/27/24 History traMADol HCL 50 mg PO TID PRN 02/04/24 07/27/24 History Ipratropium-Albuterol Nebulize 3 ml INHALATION RT-QID PRN 07/13/24 07/27/24 Hist ory [Duoneb 0.5 mg-3 mg/3 ml Soln] L.acidoph,Paracasei, B.lactis 1 cap PO HS 07/13/24 07/27/24 History [Probiotic] Umeclidinium Brm/Vilanterol Tr 1 puff INHALATION RT-DAILY 07/13/24 07/27/24 History [Anoro Ellipta 62.5-25 Mcg INH] predniSONE 50 mg PO DAILY #10 tab 07/15/24 07/27/24 Rx Allergies Allergy/AdvReac Type Severity Reaction Status Date / Time lactose Allergy Unknown Verified 07/27/24 13:39 mold Allergy Unknown Verified 07/27/24 13:39 nickel Allergy Rash/Hives Verified 07/27/24 13:39 NSAIDS (Non-Steroidal AdvReac Unknown Verified 07/27/24 13:39 Anti-Inflamma dust Allergy Unknown Uncoded 07/27/24 13:39 Physical Exam Vitals: Vital Signs Temp Pulse Resp BP Pulse Ox 08/14/24 23:19 97.6 F 90 18 91/55 100 Intake and Output 08/14/24 08/14/24 08/15/24 14:59 22:59 06:59 Other: Weight 72.121 kg Results CBC & Chem 7: 08/15/24 01:00 08/15/24 01:00 Labs: Abnormal Lab Results - Last 24 Hours (Table) 08/15/24 08/15/24 08/15/24 Range/Units 01:00 01:00 01:00 WBC 62.7 H* (3.8-10.6) k/uL RDW 15.9 H (11.5-15.5) % Neutrophils # (Manual) 57.60 H (1.3-7.7) k/uL Lymphocytes # (Manual) 5.02 H (1.0-4.8) k/uL APTT 18.7 L (22.0-30.0) sec Sodium 132 L (137-145) mmol/L Chloride 95 L (98-107) mmol/L Carbon Dioxide 31 H (22-30) mmol/L BUN 30 H (7-17) mg/dL Plasma Lactic Acid Jeremy (0.7-2.0) mmol/L Calcium 13.3 H* (8.4-10.2) mg/dL Alkaline Phosphatase 142 H (38-126) U/L Total Protein 6.2 L (6.3-8.2) g/dL Albumin 3.3 L (3.5-5.0) g/dL 08/15/24 Range/Units 01:00 WBC (3.8-10.6) k/uL RDW (11.5-15.5) % Neutrophils # (Manual) (1.3-7.7) k/uL Lymphocytes # (Manual) (1.0-4.8) k/uL APTT (22.0-30.0) sec Sodium (137-145) mmol/L Chloride (98-107) mmol/L Carbon Dioxide (22-30) mmol/L BUN (7-17) mg/dL Plasma Lactic Acid Jeremy 2.6 H* (0.7-2.0) mmol/L Calcium (8.4-10.2) mg/dL Alkaline Phosphatase (38-126) U/L Total Protein (6.3-8.2) g/dL Albumin (3.5-5.0) g/dL
[2024-08-15] MEDS: ZOLEDRONIC ACID 4 MG in SODIUM CHLORIDE 0.9% 100 ML IV ONE (05:17)
[2024-08-15] MEDS: CALCITONIN INJ 200 UNIT/ML (MDV) VIAL IM ONE (05:18)
--- NOTE | 2024-08-15 05:53 | CT ---
EXAM: CT Head Without Intravenous Contrast CLINICAL HISTORY: ITS.REASON CT Reason: hx of fall TECHNIQUE: Axial computed tomography images of the head/brain without intravenous contrast. CTDI is 49.2 mGy and DLP is 1125.4 mGy-cm. This CT exam was performed using one or more of the following dose reduction techniques: automated exposure control, adjustment of the mA and/or kV according to patient size, and/or use of iterative reconstruction technique. COMPARISON: CT dated 08/03/2024. FINDINGS: Brain: Unremarkable. No hemorrhage. No significant white matter disease. No edema. Ventricles: Unremarkable. No ventriculomegaly. Bones/joints: Unremarkable. No acute fracture. Soft tissues: Unremarkable. Sinuses: Unremarkable as visualized. No acute sinusitis. Mastoid air cells: Unremarkable as visualized. No mastoid effusion. IMPRESSION: Normal head/brain CT.
--- NOTE | 2024-08-15 05:54 | XR ---
EXAM: XR Chest, 2 Views CLINICAL HISTORY: ITS.REASON XR Reason: r/o pneumonia TECHNIQUE: Frontal and lateral views of the chest. COMPARISON: No relevant prior studies available. FINDINGS: Lungs: Confluent right suprahilar airspace opacity. The left lung is clear. The lungs are hyperinflated. Pleural space: Unremarkable. No pneumothorax. Heart: Unremarkable. No cardiomegaly. Mediastinum: Unremarkable. Normal mediastinal contour. Bones/joints: Degenerative changes are seen in the spine and shoulders. No acute fracture. IMPRESSION: Right upper lobe pneumonia.
[2024-08-15] MEDS: ONDANSETRON 4 MG/2 ML VIAL IVP STA (06:20)
[2024-08-15 06:42] LABS: HCT 37.8 % (34.0-46.0); HGB 11.9 gm/dL (11.4-16.0); MCH 28.6 pg (25.0-35.0); MCHC 31.4 g/dL (31.0-37.0); Mean Platelet Volume 7.1; Platelet Count 402 k/uL (150-450); RBC 4.16 m/uL (3.80-5.40); RDW 15.9 % (11.5-15.5)
[2024-08-15 06:54] LABS: ALT 23 U/L (4-34); AST 19 U/L (14-36); African American GFR (CKD) 79 (>60 ml/min/1.73 sqM); Albumin 3.3 g/dL (3.5-5.0); Alkaline Phosphatase 168 U/L (38-126); Anion Gap 8 mmol/L; Blood Urea Nitrogen 26 mg/dL (7-17); Carbon Dioxide 28 mmol/L (22-30); Chloride 99 mmol/L (98-107); Glucose 75 mg/dL (74-99); Non-African American GFR(CKD) 68 (>60 ml/min/1.73 sqM); Potassium 4.6 mmol/L (3.5-5.1); Sodium 135 mmol/L (137-145); Total Bilirubin 0.6 mg/dL (0.2-1.3); Total Protein 6.2 g/dL (6.3-8.2)
[2024-08-15 06:54] LABS: WBC 59.2 k/uL (3.8-10.6)
[2024-08-15 07:10] LABS: Ionized Calcium 6.9 mg/dL (4.5-5.3)
[2024-08-15 07:10] LABS: Band Neutrophils % 4 %; Eosinophils # (M) 0.59 k/uL (0-0.7); Lymphocytes # (M) 4.14 k/uL (1.0-4.8); Monocytes # (M) 1.78 k/uL (0-1.0); Neutrophils % (M) 87 %; Nucleated Red Blood Cells 0 /100 WBC (0-0); RBC Morphology Normal; Total Cells Counted 200
[2024-08-15] MEDS: IPRATROPIUM-ALBUTEROL 3 ML NEB INHALATION PRN (08:14)
[2024-08-15] MEDS: PANTOPRAZOLE 40 MG TABLET PO SCH (08:25)
[2024-08-15] MEDS: ENOXAPARIN 40 MG/0.4 ML SYRINGE SQ SCH (08:25)
[2024-08-15] MEDS: AZITHROMYCIN 500 MG TAB PO SCH (08:25)
[2024-08-15] MEDS: MORPHINE SULFATE 2 MG/ML SYRINGE IVP PRN (08:36)
[2024-08-15] MEDS ORDERED: CALCITONIN INJ 200 UNIT/ML (MDV) VIAL IM ONE (10:51)
--- NOTE | 2024-08-15 10:53 | P.NPCON ---
History of Present Illness - History of Present Illness Reason for consultation: Hypercalcemia History of present illness: Patient is a 63-year-old female seen in renal consultation for hypercalcemia. Patient has been diagnosed with squamous cell cancer of the mediastinum and is scheduled to start chemotherapy and radiation in the next 1 to 2 weeks. Calcium was noted to be elevated at 13.3 this admission. Patient was sent to the hospital due to the hypercalcemia. Renal function is at baseline. I do not see any calcium or vitamin D supplementation on her home medication list. She did receive a dose of calcitonin, zoledronic acid and also a liter bolus of normal saline in the ER. She is currently receiving normal saline at 100 cc an hour. Denies tremors. Denies vomiting or diarrhea. Denies chest pain or shortness of breath. Hemodynamically stable. Currently on a nasal cannula. No gross hematuria or dysuria. Vital signs are stable. General: No acute distress. HEENT: Head exam is unremarkable. LUNGS: No audible rhonchi or wheezes. HEART: Rate and Rhythm are regular. ABDOMEN: Nontender. EXTREMITITES: No edema. Past Medical History Past Medical History: COPD, GERD/Reflux, Hearing Disorder / Deafness, Pneumonia, Skin Disorder Additional Past Medical History / Comment(s): psoriatic arthritis, right ear deaf, psoriasis hands feet History of Any Multi-Drug Resistant Organisms: None Reported Past Surgical History: Back Surgery, Breast Surgery, Cholecystectomy, Joint Replacement, Orthopedic Surgery, Tubal Ligation Additional Past Surgical History / Comment(s): R hip replacement January 2024. 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, arthroscopy bilateral knees, left foot bone spur, ablation to back , injections to back, breast bx left, titanium tag, egd ,colonoscopy Past Anesthesia/Blood Transfusion Reactions: No Reported Reaction Additional Past Anesthesia/Blood Transfusion Reaction / Comment(s): no blood transfusion Past Psychological History: ADD/ADHD, Anxiety Smoking Status: Former smoker Medications and Allergies Home Medications Medication Instructions Recorded Confirmed Type Albuterol Inhaler [Ventolin Hfa 2 puff INHALATION RT-Q4H PRN 02/04/24 08/15/24 History Inhaler] Amitriptyline HCl 25 mg PO HS 02/04/24 08/15/24 History Cetirizine HCl 10 mg PO HS 02/04/24 08/15/24 History Omeprazole 20 mg PO DAILY 02/04/24 08/15/24 History traMADol HCL 50 mg PO TID PRN 02/04/24 08/15/24 History Ipratropium-Albuterol Nebulize 3 ml INHALATION RT-QID PRN 07/13/24 08/15/24 History [Duoneb 0.5 mg-3 mg/3 ml Soln] L.acidoph,Paracasei, B.lactis 1 cap PO HS 07/13/24 08/15/24 History [Probiotic] Umeclidinium Brm/Vilanterol Tr 1 puff INHALATION RT-DAILY 07/13/24 08/15/24 History [Anoro Ellipta 62.5-25 Mcg INH] predniSONE 50 mg PO DAILY #10 tab 07/15/24 08/15/24 Rx Benzonatate [Tessalon Perle] 200 mg PO TID PRN 08/15/24 08/15/24 History Ondansetron Odt [Zofran Odt] 4 mg PO Q8H PRN 08/15/24 08/15/24 History Prochlorperazine [Compazine] 10 mg PO Q6H PRN 08/15/24 08/15/24 History ondansetron HCL [Zofran] 8 mg PO Q8HR PRN 08/15/24 08/15/24 History Allergies Allergy/AdvReac Type Severity Reaction Status Date / Time lactose Allergy Unknown Verified 08/15/24 08:06 mold Allergy Unknown Verified 08/15/24 08:06 nickel Allergy Rash/Hives Verified 08/15/24 08:06 NSAIDS (Non-Steroidal AdvReac ACID REFLUX Verified 08/15/24 08:06 Anti-Inflamma dust Allergy Unknown Uncoded 08/15/24 08:06 Physical Exam Vitals: Vital Signs Temp Pulse Resp BP Pulse Ox 08/15/24 08:24 96 08/15/24 08:14 82 08/15/24 07:13 87 18 127/61 97 08/15/24 04:35 51 L 18 102/53 99 08/14/24 23:19 97.6 F 90 18 91/55 100 Intake and Output 08/14/24 08/15/24 08/15/24 22:59 06:59 14:59 Other: Voiding Method Toilet Weight 72.121 kg Results - Lab Results Most recent lab results Calcium 13.0 mg/dL (8.4-10.2) H 08/15/24 06:29 Magnesium 2.3 mg/dL (1.6-2.3) 08/15/24 01:00 08/15/24 06:25 08/15/24 06:29 Assessment and Plan Plan: Assessment: 1. 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 Calcium level 13.3 on admission and 13.0 this morning. 2. Squamous cell cancer of the mediastinum. Plan: Maintain IV fluids. Increase rate to 150 cc an hour. Will give another dose of IM calcitonin now. Status post zoledronic acid and IM calcitonin given August 15, 2024. Follow-up vitamin D level. Avoid nephrotoxins. Repeat labs in the morning. Thank you for the consultation. I will continue to follow the patient with you during her hospital stay.
[2024-08-15 11:26] LABS: Influenza A Not Detected (Not Detectd); Influenza B Not Detected (Not Detectd); RSV Detected (Not Detectd)
[2024-08-15] MEDS: traMADol 50 MG TAB PO PRN (13:08)
[2024-08-15] MEDS ORDERED: DEXTROSE 50% SYRINGE 50 ML IVP PRN ×2 (15:05)
[2024-08-15] MEDS: HYDROCORTISONE SUCCINATE 100 MG/2 ML VIAL IV SCH (15:27)
--- NOTE | 2024-08-15 17:55 | P.PN ---
Subjective Progress Note Date: 08/15/24 Hospital course: Patient is a very pleasant 63-year-old female with a past medical history of recently diagnosed malignant mediastinal mass (squamous cell carcinoma and follows oncologist Dr. 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 She presented to the hospital on 08/14/2024 as directed by her oncologist secondary to concerns of leukocytosis and hypercalcemia. Patient was found to have a large mediastinal mass on her previous hospital admission on 07/13/2024 for shortness of breath. 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 Patient is currently following oncologist Dr. Cas Robledo and is supposed to have her chemotherapy and radiation started this week. Patient has been feeling weak, dyspneic, lethargic and lightheaded from last couple days. Patient also had an episode of fall today. She felt weak in her legs while trying to get up from toilet seat and fell backward hitting the back of her head. Patient did not lose consciousness. Patient also reports worsening productive cough with greenish thick sputum. Denies fever and chills. She has been losing weight from last 6 months and have lost about 40 pounds. She is currently on 2 L of oxygen at home at all times. Physical exam: Vital signs reviewed and stable. General: Nontoxic, no distress and appears stated age. Derm: Skin warm and dry, normal coloration for ethnicity. Head: Atraumatic, normocephalic and symmetric. Eyes: EOM's intact, no lid lag, and anicteric sclera Mouth: no lip lesions, mucus membranes moist Cardiovascular: regular rate and rhythm with normal S1S2, no murmur, positive posterior tibial pulses bilaterally, and cap refill < 2 seconds. Lungs: Respirations even, regular, and unlabored on room air. Lungs diminished with diffuse rhonchi and soft expiratory wheezes. Abdominal: soft, nontender to palpation, no guarding, no appreciable organomegaly Ext: ROM intact. No gross muscle atrophy, no edema, no contractures Neuro: Speech clear, face symmetrical and CN II-XII grossly intact with no noted focal neuro deficits Psych: Alert and oriented to person, place, time, and situation. Appropriate and pleasant affect. Assessment and Plan of Care: This is a very pleasant 63-year-old female with PMH of malignant mediastinal mass (following oncologist Dr. Cas Robledo at [facility] in [facility], currently not on chemoradiation), COPD on 2 L home oxygen, GERD, presents to the ER after being directed by her retail assistant store manager to be evaluated for leukocytosis and hypercalcemia. Symptomatic severe hypercalcemia in the setting of underlying malignancy, likely paraneoplastic due to PTHrp Leukocytosis in the setting of underlying malignancy Squamous cell carcinoma of the mediastinal mass -Calcium level 13.3, 62.7 -Order ionized calcium level -Order IM Calcitonin 300 units once; weight based 4 units/kg -Continue with IV normal saline at 100 cc/h -Order IV 4 mg zoledronic acid Continue monitor calcium; recheck in a.m. Continue monitor CBC Consult nephrology and oncology Order PTH, PTHRrp, 25 hydroxy vitamin D Continue cardiac telemetry Glucocorticoid induced adrenal insufficiency -Patient has been taking prednisone 50 mg daily since June. She has had weakness, lethargy, lightheadedness, postural dizziness upon standing resulting in fall, weight loss and hypotension. These symptoms concerning for Glucocorticoid induced adrenal insufficiency. -Patient started on Cortef 100 mg IVPB every 8 hours Fall/near syncopal episode, suspect seconday to orthostatic hypotension -CT head negative for acute intracranial process. -Orders placed for orthostatic vitals every shift. -Fall precautions. #History of COPD, not in exacerbation Patient saturating well at 100% with 2 L nasal cannula Reports increased cough with thick greenish sputum production for past couple of days Order chest x-ray and procalcitonin Low suspicion for pneumonia for now Continue monitor CBC Resume home albuterol inhaler and DuoNeb Elevated lactic acidosis likely secondary to malignancy and dehydration Lactic acid 2.6 Continue with IV normal saline 100 cc/h Recheck lactic acid in a.m. Hypovolemic hyponatremia secondary poor oral intake Sodium 132 Continue monitor sodium levels If sodium level does not improve suspect euvolemic hyponatremia secondary SIADH due to underlying malignancy Transaminitis AST 21, ALT 23, ALP 142 Continue monitor BMP CODE STATUS: Full code DVT prophylaxis: Lovenoz Anticipated discharge date: Pending clinical course Anticipated discharge place: Pending clinical course Patient was seen independently by Nurse Pracitioner. This document was prepared using Netadmin dictation software. Please allow for errors in broiler manager, while rare they do occur. Lazaro Muniz NP rendered care for this patient independently, reviewed the findin gs and plan as documented in the note above and agree with plan. I did not physically speak with or examine the patient on this date. Objective - Vital Signs Vital signs: Vital Signs Temp 97.6 F 08/14/24 23:19 Pulse 82 08/15/24 08:14 Resp 18 08/15/24 07:13 BP 127/61 08/15/24 07:13 Pulse Ox 96 08/15/24 08:24 FiO2 Intake & Output 08/14/24 08/15/24 08/15/24 18:59 06:59 18:59 Weight 72.121 kg - Labs CBC & Chem 7: 08/15/24 06:25 08/15/24 06:29 Labs: Abnormal Lab Results - Last 24 Hours (Table) 08/15/24 08/15/24 08/15/24 Range/Units 01:00 01:00 01:00 WBC 62.7 H* (3.8-10.6) k/uL RDW 15.9 H (11.5-15.5) % Neutrophils # (Manual) 57.60 H (1.3-7.7) k/uL Lymphocytes # (Manual) 5.02 H (1.0-4.8) k/uL Monocytes # (Manual) (0-1.0) k/uL APTT 18.7 L (22.0-30.0) sec Sodium 132 L (137-145) mmol/L Chloride 95 L (98-107) mmol/L Carbon Dioxide 31 H (22-30) mmol/L BUN 30 H (7-17) mg/dL Plasma Lactic Acid Jeremy (0.7-2.0) mmol/L Calcium 13.3 H* (8.4-10.2) mg/dL Ionized Calcium Dean (4.5-5.3) mg/dL Alkaline Phosphatase 142 H (38-126) U/L Total Protein 6.2 L (6.3-8.2) g/dL Albumin 3.3 L (3.5-5.0) g/dL 08/15/24 08/15/24 08/15/24 Range/Units 01:00 03:49 06:25 WBC 59.2 H* (3.8-10.6) k/uL RDW 15.9 H (11.5-15.5) % Neutrophils # (Manual) 53.80 H (1.3-7.7) k/uL Lymphocytes # (Manual) (1.0-4.8) k/uL Monocytes # (Manual) 1.78 H (0-1.0) k/uL APTT (22.0-30.0) sec Sodium (137-145) mmol/L Chloride (98-107) mmol/L Carbon Dioxide (22-30) mmol/L BUN (7-17) mg/dL Plasma Lactic Acid Jeremy 2.6 H* 2.6 H* (0.7-2.0) mmol/L Calcium (8.4-10.2) mg/dL Ionized Calcium Dean (4.5-5.3) mg/dL Alkaline Phosphatase (38-126) U/L Total Protein (6.3-8.2) g/dL Albumin (3.5-5.0) g/dL 08/15/24 08/15/24 Range/Units 06:29 06:29 WBC (3.8-10.6) k/uL RDW (11.5-15.5) % Neutrophils # (Manual) (1.3-7.7) k/uL Lymphocytes # (Manual) (1.0-4.8) k/uL Monocytes # (Manual) (0-1.0) k/uL APTT (22.0-30.0) sec Sodium 135 L (137-145) mmol/L Chloride (98-107) mmol/L Carbon Dioxide (22-30) mmol/L BUN 26 H (7-17) mg/dL Plasma Lactic Acid Jeremy 3.2 H* (0.7-2.0) mmol/L Calcium 13.0 H (8.4-10.2) mg/dL Ionized Calcium Dean 6.9 H* (4.5-5.3) mg/dL Alkaline Phosphatase 168 H (38-126) U/L Total Protein 6.2 L (6.3-8.2) g/dL Albumin 3.3 L (3.5-5.0) g/dL
--- NOTE | 2024-08-15 20:01 | P.CONS ---
History of Present Illness - Reason for Consult Consult date: 08/15/24 hx lung cancer Requesting physician: Jose Luis Barkley - Chief Complaint weakness, abdnormal labs - History of Present Illness Patient is a 63-year-old female with a history of NSCLC, who follows with Dr. Robledo and locally with radiation oncology. CTA of the chest on 07/13/2024 did not reveal any evidence of pulmonary embolism, but did note mediastinal mass extending down the trachea towards the right pulmonary hilum measuring 5.7 x 4.6 x 7.7 cm. The masses around the right main bronchus and right upper lung airways. Labs were notable for neutrophilic leukocytosis with WBC 39.5, hemoglobin 10.8 (MCV 92.7), platelets 493. Anemia workup revealed no evidence of iron, vitamin B12, or folic acid deficiency. Lactate dehydrogenase was normal. Pulmonology was consulted and she did have bronchoscopy performed on 07/14/2024 with irregular mucosa involving the whole angy and distal trachea. Multiple biopsies were taken of the angy, which were nondiagnostic. BAL did note rare atypical cells suspicious for non-small cell carcinoma. Patient underwent tracheal tumor biopsy on 07/27/2024 which again was nondiagnostic of neoplasm. Biopsy of mediastinal mass revealed poorly differentiated non-small carcinoma consistent with squamous cell carcinoma. PET/CT on 07/28/2024 showed intense uptake within the mediastinal mass. No mediastinal or hilar metastasis identified. There is some scattered areas of uptake within the thoracic vertebral body suspicious for metastasis. She is scheduled to begin RT on 08/17 and weekly carbo/taxol on 08/22. Patient presented the emergency room for abnormal labs for hypercalcemia and leukocytosis. Upon admit WBC 62.7, hemoglobin 11.9, platelets 407,000. Calcium 13.0, ionized calcium 6.9. Patient was given Zometa, IV hydration and calcitonin. CT brain was negative for acute intracranial processes. Chest x- ray showing possible right upper lobe pneumonia, patient was started on IV antibiotics. At today's visit patient is reporting chest pain and generalized weakness. Review of Systems 10 point ROS is negative except as stated in the HPI Past Medical History Past Medical History: COPD, GERD/Reflux, Hearing Disorder / Deafness, Pneumonia, Skin Disorder Additional Past Medical History / Comment(s): psoriatic arthritis, right ear deaf, psoriasis hands feet History of Any Multi-Drug Resistant Organisms: None Reported Past Surgical History: Back Surgery, Breast Surgery, Cholecystectomy, Joint Replacement, Orthopedic Surgery, Tubal Ligation Additional Past Surgical History / Comment(s): R hip replacement January 2024. 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, arthroscopy bilateral knees, left foot bone spur, ablation to back , injections to back, breast bx left, titanium tag, egd ,colonoscopy Past Anesthesia/Blood Transfusion Reactions: No Reported Reaction Additional Past Anesthesia/Blood Transfusion Reaction / Comm: no blood transfusion Past Psychological History: ADD/ADHD, Anxiety Smoking Status: Former smoker Medications and Allergies Home Medications Medication Instructions Recorded Confirmed Type Albuterol Inhaler [Ventolin Hfa 2 puff INHALATION RT-Q4H PRN 02/04/24 08/15/24 History Inhaler] Amitriptyline HCl 25 mg PO HS 02/04/24 08/15/24 History Cetirizine HCl 10 mg PO HS 02/04/24 08/15/24 History Omeprazole 20 mg PO DAILY 02/04/24 08/15/24 History traMADol HCL 50 mg PO TID PRN 02/04/24 08/15/24 History Ipratropium-Albuterol Nebulize 3 ml INHALATION RT-QID PRN 07/13/24 08/15/24 History [Duoneb 0.5 mg-3 mg/3 ml Soln] L.acidoph,Paracasei, B.lactis 1 cap PO HS 07/13/24 08/15/24 History [Probiotic] Umeclidinium Brm/Vilanterol Tr 1 puff INHALATION RT-DAILY 07/13/24 08/15/24 History [Anoro Ellipta 62.5-25 Mcg INH] predniSONE 50 mg PO DAILY #10 tab 07/15/24 08/15/24 Rx Benzonatate [Tessalon Perle] 200 mg PO TID PRN 08/15/24 08/15/24 History Ondansetron Odt [Zofran Odt] 4 mg PO Q8H PRN 08/15/24 08/15/24 History Prochlorperazine [Compazine] 10 mg PO Q6H PRN 08/15/24 08/15/24 History ondansetron HCL [Zofran] 8 mg PO Q8HR PRN 08/15/24 08/15/24 History Allergies Allergy/AdvReac Type Severity Reaction Status Date / Time lactose Allergy Unknown Verified 08/15/24 08:06 mold Allergy Unknown Verified 08/15/24 08:06 nickel Allergy Rash/Hives Verified 08/15/24 08:06 NSAIDS (Non-Steroidal AdvReac ACID REFLUX Verified 08/15/24 08:06 Anti-Inflamma dust Allergy Unknown Uncoded 08/15/24 08:06 Physical Exam Vitals: Vital Signs Temp Pulse Resp BP Pulse Ox 08/15/24 08:24 96 08/15/24 08:14 82 08/15/24 07:13 87 18 127/61 97 08/15/24 04:35 51 L 18 102/53 99 08/14/24 23:19 97.6 F 90 18 91/55 100 Intake and Output 08/14/24 08/15/24 08/15/24 22:59 06:59 14:59 Other: Voiding Method Toilet Weight 72.121 kg - Constitutional General appearance: average body habitus, no acute distress - EENT Eyes: anicteric sclerae, EOMI ENT: hearing grossly normal - Respiratory RUL wheezing and rhonchi - Cardiovascular Rhythm: regular - Gastrointestinal General gastrointestinal: soft, no tenderness - Integumentary Integumentary: no cyanotic, no jaundiced - Musculoskeletal Musculoskeletal: generalized weakness - Psychiatric Psychiatric: A&O x's 3 Results CBC & Chem 7: 08/15/24 06:25 08/15/24 06:29 Labs: Abnormal Lab Results - Last 24 Hours (Table) 08/15/24 08/15/24 08/15/24 Range/Units 01:00 01:00 01:00 WBC 62.7 H* (3.8-10.6) k/uL RDW 15.9 H (11.5-15.5) % Neutrophils # (Manual) 57.60 H (1.3-7.7) k/uL Lymphocytes # (Manual) 5.02 H (1.0-4.8) k/uL Monocytes # (Manual) (0-1.0) k/uL APTT 18.7 L (22.0-30.0) sec Sodium 132 L (137-145) mmol/L Chloride 95 L (98-107) mmol/L Carbon Dioxide 31 H (22-30) mmol/L BUN 30 H (7-17) mg/dL Plasma Lactic Acid Jeremy (0.7-2.0) mmol/L Calcium 13.3 H* (8.4-10.2) mg/dL Ionized Calcium Dean (4.5-5.3) mg/dL Alkaline Phosphatase 142 H (38-126) U/L Total Protein 6.2 L (6.3-8.2) g/dL Albumin 3.3 L (3.5-5.0) g/dL PTH Intact (14.0-72.0) pg/mL RSV (PCR) (Not Detectd) 08/15/24 08/15/24 08/15/24 Range/Units 01:00 03:49 06:25 WBC 59.2 H* (3.8-10.6) k/uL RDW 15.9 H (11.5-15.5) % Neutrophils # (Manual) 53.80 H (1.3-7.7) k/uL Lymphocytes # (Manual) (1.0-4.8) k/uL Monocytes # (Manual) 1.78 H (0-1.0) k/uL APTT (22.0-30.0) sec Sodium (137-145) mmol/L Chloride (98-107) mmol/L Carbon Dioxide (22-30) mmol/L BUN (7-17) mg/dL Plasma Lactic Acid Jeremy 2.6 H* 2.6 H* (0.7-2.0) mmol/L Calcium (8.4-10.2) mg/dL Ionized Calcium Dean (4.5-5.3) mg/dL Alkaline Phosphatase (38-126) U/L Total Protein (6.3-8.2) g/dL Albumin (3.5-5.0) g/dL PTH Intact (14.0-72.0) pg/mL RSV (PCR) (Not Detectd) 08/15/24 08/15/24 08/15/24 Range/Units 06:29 06:29 06:29 WBC (3.8-10.6) k/uL RDW (11.5-15.5) % Neutrophils # (Manual) (1.3-7.7) k/uL Lymphocytes # (Manual) (1.0-4.8) k/uL Monocytes # (Manual) (0-1.0) k/uL APTT (22.0-30.0) sec Sodium 135 L (137-145) mmol/L Chloride (98-107) mmol/L Carbon Dioxide (22-30) mmol/L BUN 26 H (7-17) mg/dL Plasma Lactic Acid Jeremy 3.2 H* (0.7-2.0) mmol/L Calcium 13.0 H (8.4-10.2) mg/dL Ionized Calcium Dean 6.9 H* (4.5-5.3) mg/dL Alkaline Phosphatase 168 H (38-126) U/L Total Protein 6.2 L (6.3-8.2) g/dL Albumin 3.3 L (3.5-5.0) g/dL PTH Intact 6.2 L (14.0-72.0) pg/mL RSV (PCR) (Not Detectd) 08/15/24 08/15/24 Range/Units 10:03 10:30 WBC (3.8-10.6) k/uL RDW (11.5-15.5) % Neutrophils # (Manual) (1.3-7.7) k/uL Lymphocytes # (Manual) (1.0-4.8) k/uL Monocytes # (Manual) (0-1.0) k/uL APTT (22.0-30.0) sec Sodium (137-145) mmol/L Chloride (98-107) mmol/L Carbon Dioxide (22-30) mmol/L BUN (7-17) mg/dL Plasma Lactic Acid Jeremy 3.3 H* (0.7-2.0) mmol/L Calcium (8.4-10.2) mg/dL Ionized Calcium Dean (4.5-5.3) mg/dL Alkaline Phosphatase (38-126) U/L Total Protein (6.3-8.2) g/dL Albumin (3.5-5.0) g/dL PTH Intact (14.0-72.0) pg/mL RSV (PCR) Detected A (Not Detectd) Chest x-ray: report reviewed CT Scan - head: report reviewed Assessment and Plan (1) Squamous cell carcinoma lung Current Visit: Yes Status: Acute Priority: High Code(s): C34.90 - MALIGNANT NEOPLASM OF UNSP PART OF UNSP BRONCHUS OR LUNG SNOMED Code(s): 026616496 (2) Hypercalcemia Current Visit: Yes Status: Acute Priority: High Code(s): E83.52 - HYP ERCALCEMIA SNOMED Code(s): 25529091 (3) Leukocytosis Current Visit: Yes Status: Acute Priority: Medium Code(s): D72.829 - ELEVATED WHITE BLOOD CELL COUNT, UNSPECIFIED SNOMED Code(s): 486044189 Plan: Hypercalcemia, leukocytosis: Presented with weakness and elevated calcium/WBCs -Calcium 13.0, ionized calcium 6.9. WBC Patient was given Zometa, IV hydration and calcitonin. -CT brain was negative for acute intracranial processes. -Chest x-ray showing possible right upper lobe pneumonia, patient was started on IV antibiotics. Viral testing positive for RSV -Hypercalcemia likely r/t suspected osseous metastatic disease. Zometa, IV fluids and calcitonin given. Continue to monitor calcium levels -Leukocytosis has been persisting, increased WBC likely related to acute condition/acute infection, continue to monitor Squamous cell carcinoma of lung: -Oncology history as stated in the HPI -Biopsy of mediastinal mass revealed poorly differentiated non-small carcinoma consistent with squamous cell carcinoma. PET/CT on 07/28/2024 showed intense uptake within the mediastinal mass. No mediastinal or hilar metastasis identified. With some scattered areas of uptake within the thoracic vertebral body suspicious for metastasis. -She is scheduled to begin RT on 08/17 and weekly carbo/taxol on 08/22 -Rad onc consulted to evaluate to begin RT inpt. Will discuss case with her oncologist Dr. Robledo if he recommends starting inpt chemo Doctor attests: I performed a history and physical examination of this patient, developed impression and plan of care. Discussed with dictator. I agree with dictators note, documented as a scribe.
[2024-08-15] MEDS: AMITRIPTYLINE HCL 25 MG TAB PO SCH (20:53)
[2024-08-15] MEDS: LACTOBACILLUS ACIDOPHILUS/PECT 1 EACH CAPSULE PO SCH (20:53)
[2024-08-16] MEDS: ALBUTEROL NEBULIZED 2.5 MG/3 ML INHALATION PRN (05:09)
[2024-08-16 07:48] LABS: Anisocytosis Slight; HCT 32.9 % (34.0-46.0); HGB 10.3 gm/dL (11.4-16.0); Hypochromasia Slight; MCH 29.2 pg (25.0-35.0); MCHC 31.2 g/dL (31.0-37.0); MCV 93.4 fL (80.0-100.0); Mean Platelet Volume 7.7; Platelet Count 306 k/uL (150-450); RBC 3.53 m/uL (3.80-5.40); RDW 16.2 % (11.5-15.5); WBC 43.7 k/uL (3.8-10.6)
[2024-08-16 07:53] LABS: ALT 23 U/L (4-34); AST 16 U/L (14-36); African American GFR (CKD) >90 (>60 ml/min/1.73 sqM); Albumin 2.6 g/dL (3.5-5.0); Alkaline Phosphatase 119 U/L (38-126); Anion Gap 7 mmol/L; Blood Urea Nitrogen 17 mg/dL (7-17); Calcium 9.6 mg/dL (8.4-10.2); Carbon Dioxide 23 mmol/L (22-30); Chloride 105 mmol/L (98-107); Glucose 96 mg/dL (74-99); Magnesium 1.8 mg/dL (1.6-2.3); Non-African American GFR(CKD) 87 (>60 ml/min/1.73 sqM); Potassium 4.4 mmol/L (3.5-5.1); Sodium 135 mmol/L (137-145); Total Bilirubin 0.3 mg/dL (0.2-1.3); Total Protein 5.1 g/dL (6.3-8.2)
[2024-08-16] MEDS: FORMOTEROL FUMARATE 20 MCG/2 ML NEBU INHALATION SCH (09:01)
[2024-08-16] MEDS: TIOTROPIUM 2.5 MCG INHALER INHALATION SCH (09:02)
[2024-08-16] MEDS: SODIUM CHLORIDE 0.9% 1,000 ML IV SCH (09:28)
[2024-08-16 09:53] LABS: Lymphocytes # (M) 1.75 k/uL (1.0-4.8); Monocytes # (M) 1.31 k/uL (0-1.0); Neutrophils # (M) 40.64 k/uL (1.3-7.7); Neutrophils % (M) 93 %; Nucleated Red Blood Cells 0 /100 WBC (0-0); Total Cells Counted 200
--- NOTE | 2024-08-16 10:59 | P.PN ---
Subjective Patient is seen in follow-up for hypercalcemia. Calcium level 9.6 today. Oral intake fair. No active complaints. Vital signs are stable. General: No acute distress. HEENT: Head exam is unremarkable. LUNGS: No audible rhonchi or wheezes. HEART: Rate and Rhythm are regular. ABDOMEN: Nontender. EXTREMITITES: No edema. Objective - Vital Signs Vital signs: Vital Signs Temp 98.3 F 08/15/24 22:43 Pulse 90 08/16/24 09:22 Resp 16 08/16/24 09:15 BP 115/58 08/16/24 09:15 Pulse Ox 100 08/16/24 09:15 FiO2 Intake & Output 08/15/24 08/16/24 08/16/24 18:59 06:59 18:59 Weight 72 kg Other: Voiding Method Toilet Bedside Commode Bedside Commode - Labs CBC & Chem 7: 08/16/24 06:41 08/16/24 06:41 Labs: Abnormal Lab Results - Last 24 Hours (Table) 08/15/24 08/15/24 08/15/24 Range/Units 06:29 10:03 10:30 WBC (3.8-10.6) k/uL RBC (3.80-5.40) m/uL Hgb (11.4-16.0) gm/dL Hct (34.0-46.0) % RDW (11.5-15.5) % Neutrophils # (Manual) (1.3-7.7) k/uL Monocytes # (Manual) (0-1.0) k/uL Sodium (137-145) mmol/L Plasma Lactic Acid Jeremy 3.3 H* (0.7-2.0) mmol/L Total Protein (6.3-8.2) g/dL Albumin (3.5-5.0) g/dL Vitamin D 25-Hydroxy 19.4 L (30.0-100.0) ng/mL RSV (PCR) Detected A (Not Detectd) 08/15/24 08/15/24 08/15/24 Range/Units 14:02 18:16 21:46 WBC (3.8-10.6) k/uL RBC (3.80-5.40) m/uL Hgb (11.4-16.0) gm/dL Hct (34.0-46.0) % RDW (11.5-15.5) % Neutrophils # (Manual) (1.3-7.7) k/uL Monocytes # (Manual) (0-1.0) k/uL Sodium (137-145) mmol/L Plasma Lactic Acid Jeremy 3.6 H* 2.7 H* 2.3 H* (0.7-2.0) mmol/L Total Protein (6.3-8.2) g/dL Albumin (3.5-5.0) g/dL Vitamin D 25-Hydroxy (30.0-100.0) ng/mL RSV (PCR) (Not Detectd) 08/16/24 08/16/24 Range/Units 06:41 06:41 WBC 43.7 H (3.8-10.6) k/uL RBC 3.53 L (3.80-5.40) m/uL Hgb 10.3 L (11.4-16.0) gm/dL Hct 32.9 L (34.0-46.0) % RDW 16.2 H (11.5-15.5) % Neutrophils # (Manual) 40.64 H (1.3-7.7) k/uL Monocytes # (Manual) 1.31 H (0-1.0) k/uL Sodium 135 L (137-145) mmol/L Plasma Lactic Acid Jeremy (0.7-2.0) mmol/L Total Protein 5.1 L (6.3-8.2) g/dL Albumin 2.6 L (3.5-5.0) g/dL Vitamin D 25-Hydroxy (30.0-100.0) ng/mL RSV (PCR) (Not Detectd) Microbiology - Last 24 Hours (Table) 08/15/24 08:22 Gram Stain - Preliminary Sputum Assessment and Plan Plan: Assessment: 1. 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 Vitamin D level 19.4. Calcium level 13.3 on admission and is 9.6 this morning. Albumin 2.6. 2. Squamous cell cancer of the mediastinum. Plan: Maintain IV fluids. Decrease rate to 75 cc an hour. Status post zoledronic acid and IM calcitonin given August 15, 2024. Avoid nephrotoxins. Repeat labs in the morning.
--- NOTE | 2024-08-16 11:18 | P.PN ---
Subjective Progress Note Date: 08/16/24 Patient is a 63-year-old female with PMH of malignant mediastinal mass (following oncologist Dr. Cas Robledo at [facility] in [facility], currently not on chemoradiation), COPD on 2 L home oxygen, GERD, presents to the ER after being directed by her oncologist to ER for leukocytosis and hypercalcemia. Christa agustin was found to have a large mediastinal mass on her previous hospital admission on 07/13/2024 for shortness of breath. 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 Patient is currently following oncologist Dr. Cas Robledo and is supposed to h ave her chemotherapy and radiation started this week. Patient has been feeling weak, dyspneic, lethargic and lightheaded from last couple days. Patient also had an episode of fall today. She felt weak in her legs while trying to get up from toilet seat and fell backward hitting the back of her head. Patient did not lose consciousness. Patient also reports worsening productive cough with greenish thick sputum. Denies fever and chills. She has been losing weight from last 6 months and have lost about 40 pounds. She is currently on 2 L of oxygen at home at all times. Appetite is generally poor because of dysphagia, nausea and chronic cough. She is also endorsing mild right sided chest pain especially worse with coughing. Denies any swelling the legs. 08/16/24 - Patient seen and examined at bedside today. Reports she is feeling slightly better than she was yesterday, however still has episodes of difficulty breathing. She states that this is not abnormal for her. Encouraged the patient to continue eating, she notes she has a lack of appetite however understands the importance of her having high caloric intake. She has no acute complaints at this time. Review of systems: Pertinent positives and negatives as discussed in HPI, a complete review of systems was performed and all other systems are negative. Physical examination: Vital signs reviewed General: non toxic, no distress, appears older than stated age, overweight Derm: no unusual rashes/lesions, warm Head: atraumatic, normocephalic, symmetric Eyes: EOMI, no lid lag, anicteric sclera, pupils equal round reactive to light ENT: Nose and ears atraumatic Neck: No cervical lymphadenopathy, trachea midline, supple Mouth: no lip lesion, mucus membranes moist Cardiovascular: S1S2 reg, no murmur, positive dorsalis pedis pulse bilateral, no edema Lungs: CTA bilateral, no rhonchi, no rales, no accessory muscle use, decreased breath sounds noted on right middle lung Abdominal: soft, nontender to palpation, no guarding Ext: muscle strength 5 out of 5 in all 4 extremities grossly, no gross muscle atrophy, no contractures, Neuro: CN II-XI grossly intact, no gross focal neuro deficits Psych: Alert, oriented, appropriate affect Data today: Labs: WBCs 43.7, hemoglobin 10.3, hematocrit 32.9, platelet 306; sodium 135, potassium 4.4, BUN 17, creatinine 0.74, calcium 9.6, AST 16, ALT 23, alkaline phosphatase 119, albumin 2.6, lactic acid 0.9 Assessment/Plan: This is a Patient is a 63-year-old female with PMH of malignant mediastinal mass (following oncologist Dr. Cas Robledo at [facility] in [facility], currently not on chemoradiation), COPD on 2 L home oxygen, GERD, presents to the ER after being directed by her leaf blender to ER for leukocytosis and hypercalcemia. Case was discussed with the Emergency Room provider and decision was made to admit the patient for hypercalcemia and malignant mediastinal mass. #Symptomatic severe hypercalcemia in the setting of underlying malignancy, likely paraneoplastic due to PTHrp #Leukocytosis in the setting of underlying malignancy #squamous cell carcinoma of the mediastinal mass -Calcium level 13.3 => 13.0 => 9.6 -Albumin 3.3 => 2.6; corrected calcium ~11 -Ionized calcium 6.9 -Vitamin D level 19.4 -PTH intact 6.2 -PTHrp currently pending -Order IM Calcitonin 300 units once; weight based 4 units/kg -Continue with IV normal saline at 150 cc/h -Order IV 4 mg zoledronic acid -Continue monitor calcium; recheck in a.m. -Continue monitor CBC -Consult nephrology, hematology/oncology and radiation oncology -PET/CT in 07/28/2024 showed intense uptake within the mediastinal mass, without mediastinal or hilar metastases being identified; some scattered areas of uptake within the thoracic vertebral body suspicious for possible metastases -She is scheduled to begin radiation therapy in 08/17 as well as a weekly carbo/Taxol on 08/22 -Discussed with hematology/oncology, patient is likely to begin chemotherapy and radiation therapy while inpatient after consultation with the patient's medical oncologist Dr. Cas Robledo -Continue cardiac telemetry #Reported history of fall at home -CT brain without contrast revealed normal head/brain CT with no remarkable findings #History of COPD, not in exacerbation #Possible community-acquired pneumonia v viral pneumonia v reactive process secondary to patient's malignancy -Patient saturating well at 97% with 3 L nasal cannula -Reports increased cough with thick greenish sputum production for past couple of days -Low suspicion for pneumonia for now -Chest x-ray shows right upper lobe consolidation -Patient started on IV ceftriaxone 2 g once daily and azithromycin 500 mg p.o. once daily on 08/15/2024; antibiotics discontinued -Procalcitonin 0.10 -RSV positive -Preliminary sputum culture negative -Blood culture currently pending -Urine Legionella antigen currently pending -Continue monitor CBC -Resume home albuterol inhaler and DuoNeb #Elevated lactic acidosis likely secondary to malignancy and dehydration, resolved -Lactic acid 2.6 => 0.9 -Continue with IV normal saline 75 cc/h #Hypovolemic hyponatremia secondary poor oral intake, improving -Sodium 132 => 135 -Continue monitor sodium levels -If sodium level does not improve suspect euvolemic hyponatremia secondary SIADH due to underlying malignancy -Patient being maintained on IV normal saline 75 cc/h #Transaminitis, resolved -AST 21 => 19 => 16 -ALT 23 -Alkaline phosphatase 142 => 168 => 119 -Continue monitor CMP #Elevated bicarb in the setting of COPD, resolved -Continue monitor bicarb #New onset right hip discomfort, right hip total arthroplasty completed in the summer 2023 -Patient notes some new discomfort in the right hip, which was replaced in the summer 2023 -She is concerned and would like to be sure everything within the hip is okay -Right hip x-ray currently pending GI prophylaxis: Protonix 40 mg p.o. daily DVT Prophylaxis: Lovenox 40 mg subcu daily CODE STATUS: Full code Dictation was produced using [employer] dictation software. please excuse any grammatical, word or spelling errors. I saw and evaluated the patient during the villeda and critical portions of this encounter, and discussed the case in detail with the resident author of this note, I agree with the Assessment and Plan, and my changes, if any, are highlighted below. Patient was seen and examined. Plans for RT tomorrow. CBC and BMP significant for WBC 43.7, RBC 3.53, Hg 10.3, Hct 32.9, Na 135, alb 2.6. Order Hip XR for reported fall with h/o right total hip arthroplasty. Objective - Vital Signs Vital signs: Vital Signs Temp 98.3 F 08/15/24 22:43 Pulse 96 08/16/24 05:15 Resp 18 08/16/24 05:09 BP 136/63 08/16/24 04:00 Pulse Ox 97 08/16/24 04:00 FiO2 Intake & Output 08/15/24 08/16/24 08/16/24 18:59 06:59 18:59 Weight 72 kg Other: Voiding Method Toilet Bedside Commode - Labs CBC & Chem 7: 08/16/24 06:41 08/16/24 06:41 Labs: Abnormal Lab Results - Last 24 Hours (Table) 08/15/24 08/15/24 08/15/24 Range/Units 06:29 06:29 10:03 Plasma Lactic Acid Jeremy 3.3 H* (0.7-2.0) mmol/L Vitamin D 25-Hydroxy 19.4 L (30.0-100.0) ng/mL PTH Intact 6.2 L (14.0-72.0) pg/mL RSV (PCR) (Not Detectd) 08/15/24 08/15/24 08/15/24 Range/Units 10:30 14:02 18:16 Plasma Lactic Acid Jeremy 3.6 H* 2.7 H* (0.7-2.0) mmol/L Vitamin D 25-Hydroxy (30.0-100.0) ng/mL PTH Intact (14.0-72.0) pg/mL RSV (PCR) Detected A (Not Detectd) 08/15/24 Range/Units 21:46 Plasma Lactic Acid Jeremy 2.3 H* (0.7-2.0) mmol/L Vitamin D 25-Hydroxy (30.0-100.0) ng/mL PTH Intact (14.0-72.0) pg/mL RSV (PCR) (Not Detectd) Microbiology - Last 24 Hours (Table) 08/15/24 08:22 Gram Stain - Preliminary Sputum
--- NOTE | 2024-08-16 12:23 | P.CONS ---
History of Present Illness - Reason for Consult Consult date: 08/15/24 SCC mediastinum Requesting physician: Zulma Wooten - Chief Complaint "I have lung cancer" - History of Present Illness Ms. Blount is a 63-year-old with a stage IIIA (cT0, cN2, cM0) squamous cell carcinoma of the mediastinum with compression of the tracheal wall. She presents with leukocytosis and hypercalcemia. I recently established care with this patient and recommended concurrent chemoradiation with adjuvant immunotherapy. She had been scheduled to start this . She presents with the above. CT head without IV contrast was negative. Nephrology is managing her metabolic disturbances. Today, she notes worsening chest pain. She is on 4 L oxygen. Review of Systems as per HPI Past Medical History Past Medical History: COPD, GERD/Reflux, Hearing Disorder / Deafness, Pneumonia, Skin Disorder Additional Past Medical History / Comment(s): psoriatic arthritis, right ear deaf, psoriasis hands feet History of Any Multi-Drug Resistant Organisms: None Reported Past Surgical History: Back Surgery, Breast Surgery, Cholecystectomy, Joint Replacement, Orthopedic Surgery, Tubal Ligation Additional Past Surgical History / Comment(s): R hip replacement January 2024. 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, arthroscopy bilateral knees, left foot bone spur, ablation to back , injections to back, breast bx left, titanium tag, egd ,colonoscopy Past Anesthesia/Blood Transfusion Reactions: No Reported Reaction Additional Past Anesthesia/Blood Transfusion Reaction / Comm: no blood transfusion Past Psychological History: ADD/ADHD, Anxiety Smoking Status: Former smoker Past Alcohol Use History: Rare Additional Past Alcohol Use History / Comment(s): quit smoking 07/11 Past Drug Use History: None Reported Medications and Allergies Home Medications Medication Instructions Recorded Confirmed Type Albuterol Inhaler [Ventolin Hfa 2 puff INHALATION RT-Q4H PRN 02/04/24 08/15/24 History Inhaler] Amitriptyline HCl 25 mg PO HS 02/04/24 08/15/24 History Cetirizine HCl 10 mg PO HS 02/04/24 08/15/24 History Omeprazole 20 mg PO DAILY 02/04/24 08/15/24 History traMADol HCL 50 mg PO TID PRN 02/04/24 08/15/24 History Ipratropium-Albuterol Nebulize 3 ml INHALATION RT-QID PRN 07/13/24 08/15/24 History [Duoneb 0.5 mg-3 mg/3 ml Soln] L.acidoph,Paracasei, B.lactis 1 cap PO HS 07/13/24 08/15/24 History [Probiotic] Umeclidinium Brm/Vilanterol Tr 1 puff INHALATION RT-DAILY 07/13/24 08/15/24 History [Anoro Ellipta 62.5-25 Mcg INH] predniSONE 50 mg PO DAILY #10 tab 07/15/24 08/15/24 Rx Benzonatate [Tessalon Perle] 200 mg PO TID PRN 08/15/24 08/15/24 History Ondansetron Odt [Zofran Odt] 4 mg PO Q8H PRN 08/15/24 08/15/24 History Prochlorperazine [Compazine] 10 mg PO Q6H PRN 08/15/24 08/15/24 History ondansetron HCL [Zofran] 8 mg PO Q8HR PRN 08/15/24 08/15/24 History Allergies Allergy/AdvReac Type Severity Reaction Status Date / Time lactose Allergy Unknown Verified 08/15/24 08:06 mold Allergy Unknown Verified 08/15/24 08:06 nickel Allergy Rash/Hives Verified 08/15/24 08:06 NSAIDS (Non-Steroidal AdvReac ACID REFLUX Verified 08/15/24 08:06 Anti-Inflamma dust Allergy Unknown Uncoded 08/15/24 08:06 Physical Exam Vitals: Vital Signs Temp Pulse Pulse Pulse Resp BP BP 08/16/24 12:01 85 08/16/24 11:52 84 08/16/24 09:22 90 08/16/24 09:15 84 16 115/58 08/16/24 09:14 90 08/16/24 09:05 90 08/16/24 05:15 96 08/16/24 05:09 92 18 08/16/24 04:00 98 20 136/63 08/16/24 01:32 20 08/15/24 22:45 80 20 08/15/24 22:43 98.3 F 88 20 143/78 08/15/24 20:30 84 102/66 08/15/24 20:00 88 114/52 08/15/24 19:00 96/52 08/15/24 18:30 84 93/53 08/15/24 18:00 82 95/47 08/15/24 17:30 85 94/50 08/15/24 17:00 85 18 08/15/24 16:45 84 94/47 08/15/24 16:30 89 08/15/24 16:15 93 100/53 08/15/24 16:00 96 08/15/24 15:45 96 08/15/24 15:30 87 08/15/24 15:15 88 106/55 08/15/24 15:00 92 18 08/15/24 14:45 87 95/57 08/15/24 14:30 87 08/15/24 14:23 98/54 08/15/24 13:11 08/15/24 13:05 98 18 99/58 Pulse Ox 08/16/24 12:01 08/16/24 11:52 08/16/24 09:22 08/16/24 09:15 100 08/16/24 09:14 08/16/24 09:05 08/16/24 05:15 08/16/24 05:09 08/16/24 04:00 97 08/16/24 01:32 08/15/24 22:45 08/15/24 22:43 96 08/15/24 20:30 08/15/24 20:00 08/15/24 19:00 08/15/24 18:30 08/15/24 18:00 08/15/24 17:30 08/15/24 17:00 08/15/24 16:45 08/15/24 16:30 08/15/24 16:15 08/15/24 16:00 08/15/24 15:45 08/15/24 15:30 08/15/24 15:15 08/15/24 15:00 08/15/24 14:45 08/15/24 14:30 08/15/24 14:23 08/15/24 13:11 98 08/15/24 13:05 Intake and Output 08/15/24 08/16/24 08/16/24 22:59 06:59 14:59 Other: Voiding Method Bedside Commode Bedside Commode Bedside Commode Weight 72 kg - Constitutional General appearance: mild distress - Respiratory 4L oxygen Respiratory: negative: prolonged expiration, prolonged inspiration - Psychiatric Psychiatric: A&O x's 3 Results CBC & Chem 7: 08/16/24 06:41 08/16/24 06:41 Labs: Abnormal Lab Results - Last 24 Hours (Table) 08/15/24 08/15/24 08/15/24 Range/Units 06:29 14:02 18:16 WBC (3.8-10.6) k/uL RBC (3.80-5.40) m/uL Hgb (11.4-16.0) gm/dL Hct (34.0-46.0) % RDW (11.5-15.5) % Neutrophils # (Manual) (1.3-7.7) k/uL Monocytes # (Manual) (0-1.0) k/uL Sodium (137-145) mmol/L Plasma Lactic Acid Jeremy 3.6 H* 2.7 H* (0.7-2.0) mmol/L Total Protein (6.3-8.2) g/dL Albumin (3.5-5.0) g/dL Vitamin D 25-Hydroxy 19.4 L (30.0-100.0) ng/mL 08/15/24 08/16/24 08/16/24 Range/Units 21:46 06:41 06:41 WBC 43.7 H (3.8-10.6) k/uL RBC 3.53 L (3.80-5.40) m/uL Hgb 10.3 L (11.4-16.0) gm/dL Hct 32.9 L (34.0-46.0) % RDW 16.2 H (11.5-15.5) % Neutrophils # (Manual) 40.64 H (1.3-7.7) k/uL Monocytes # (Manual) 1.31 H (0-1.0) k/uL Sodium 135 L (137-145) mmol/L Plasma Lactic Acid Jeremy 2.3 H* (0.7-2.0) mmol/L Total Protein 5.1 L (6.3-8.2) g/dL Albumin 2.6 L (3.5-5.0) g/dL Vitamin D 25-Hydroxy (30.0-100.0) ng/mL Microbiology - Last 24 Hours (Table) 08/15/24 08:22 Gram Stain - Preliminary Sputum Sputum Culture - Preliminary Assessment and Plan Assessment: Ms. Blount is a 63-year-old with a stage IIIA (cT0, cN2, cM0) squamous cell carcinoma of the mediastinum with compression of the tracheal wall. She presents with leukocytosis and hypercalcemia. Plan: Given the patient's worsening chest pain and concern for paraneoplastic hypercalcemia, I would recommend initiation of treatment inpatient. I discussed with Drs. Robledo and Sugar who were in agreement. We will plan accordingly. Her radiation treatment plan is ready. Homer Clay MD Radiation Oncology Time with Patient: Greater than 30
--- NOTE | 2024-08-16 13:52 | XR ---
EXAMINATION TYPE: XR Hip Limited RT DATE OF EXAM: 08/16/2024 1:46 PM INDICATION: Patient age:Female; 63 years old; Reason for study: hip pain, fall at home; PHH. pain COMPARISON: Right hip radiograph 08/10/2024 TECHNIQUE: The right hip was examined in single frontal projection. FINDINGS: Postsurgical changes from right total hip arthroplasty. Hardware appears intact with approp riate alignment. No acute fracture or dislocation. No soft tissue swelling. IMPRESSION: 1. No acute osseous pathology. 2. Postsurgical changes right hip arthroplasty. Hardware appears intact. [facility], , 08/16/2024 1:50 PM
--- NOTE | 2024-08-16 17:18 | P.PN ---
Subjective Progress Note Date: 08/16/24 No acute events overnight. Reporting mild improvement in symptoms today. Plan to begin inpt chemo/RT Objective - Vital Signs Vital signs: Vital Signs Temp 98.3 F 08/15/24 22:43 Pulse 85 08/16/24 12:01 Resp 16 08/16/24 09:15 BP 115/58 08/16/24 09:15 Pulse Ox 100 08/16/24 09:15 FiO2 Intake & Output 08/15/24 08/16/24 08/16/24 18:59 06:59 18:59 Weight 72 kg Other: Voiding Method Toilet Bedside Commode Bedside Commode - Constitutional General appearance: Present: average body habitus, no acute distress - EENT Eyes: Present: anicteric sclerae, EOMI ENT: Present: hearing grossly normal - Respiratory Details: breathing is even and unlabored - Cardiovascular Details: skin warm and dry - Integumentary Integumentary: Absent: cyanotic - Neurologic Neurologic: Present: CNII-XII intact - Musculoskeletal Musculoskeletal: Present: strength equal bilaterally - Psychiatric Psychiatric: Present: A&O x's 3 - Labs CBC & Chem 7: 08/16/24 06:41 08/16/24 06:41 Labs: Abnormal Lab Results - Last 24 Hours (Table) 08/15/24 08/15/24 08/15/24 Range/Units 06:29 14:02 18:16 WBC (3.8-10.6) k/uL RBC (3.80-5.40) m/uL Hgb (11.4-16.0) gm/dL Hct (34.0-46.0) % RDW (11.5-15.5) % Neutrophils # (Manual) (1.3-7.7) k/uL Monocytes # (Manual) (0-1.0) k/uL Sodium (137-145) mmol/L Plasma Lactic Acid Jeremy 3.6 H* 2.7 H* (0.7-2.0) mmol/L Total Protein (6.3-8.2) g/dL Albumin (3.5-5.0) g/dL Vitamin D 25-Hydroxy 19.4 L (30.0-100.0) ng/mL 08/15/24 08/16/24 08/16/24 Range/Units 21:46 06:41 06:41 WBC 43.7 H (3.8-10.6) k/uL RBC 3.53 L (3.80-5.40) m/uL Hgb 10.3 L (11.4-16.0) gm/dL Hct 32.9 L (34.0-46.0) % RDW 16.2 H (11.5-15.5) % Neutrophils # (Manual) 40.64 H (1.3-7.7) k/uL Monocytes # (Manual) 1.31 H (0-1.0) k/uL Sodium 135 L (137-145) mmol/L Plasma Lactic Acid Jeremy 2.3 H* (0.7-2.0) mmol/L Total Protein 5.1 L (6.3-8.2) g/dL Albumin 2.6 L (3.5-5.0) g/dL Vitamin D 25-Hydroxy (30.0-100.0) ng/mL Microbiology - Last 24 Hours (Table) 08/15/24 08:22 Gram Stain - Preliminary Sputum Sputum Culture - Preliminary Assessment and Plan (1) Squamous cell carcinoma lung Current Visit: Yes Status: Acute Priority: High Code(s): C34.90 - MALIGNANT NEOPLASM OF UNSP PART OF UNSP BRONCHUS OR LUNG SNOMED Code(s): 158462388 (2) Hypercalcemia Current Visit: Yes Status: Acute Priority: High Code(s): E83.52 - HYPERCALCEMIA SNOMED Code(s): 01093133 (3) Leukocytosis Current Visit: Yes Status: Acute Priority: Medium Code(s): D72.829 - ELEVATED WHITE BLOOD CELL COUNT, UNSPECIFIED SNOMED Code(s): 010026996 Plan: Hypercalcemia, leukocytosis: Presented with weakness and elevated calcium/WBCs -Calcium 13.0, ionized calcium 6.9. WBC Patient was given Zometa, IV hydration and calcitonin. -CT brain was negative for acute intracranial processes. -Chest x-ray showing possible right upper lobe pneumonia, patient was started on IV antibiotics. Viral testing positive for RSV -Hypercalcemia likely r/t suspected osseous metastatic disease. Zometa, IV fluids and calcitonin given. Calcium now normal, 9.6 today -Leukocytosis has been persisting, increased WBC likely reactive related to acute condition/acute infection, RSV. WBC showing improvement. Continue to monitor Squamous cell carcinoma of lung: -Oncology history as stated in the HPI -Biopsy of mediastinal mass revealed poorly differentiated non-small carcinoma consistent with squamous cell carcinoma. PET/CT on 07/28/2024 showed intense uptake within the mediastinal mass. No mediastinal or hilar metastasis identified. With some scattered areas of uptake within the thoracic vertebral body suspicious for metastasis. -She was scheduled to begin RT on 08/17 and weekly carbo/taxol on 08/22 -Rad onc consulted to evaluate to begin RT inpt. Case discussed with Dr. Clay and her oncologist Dr. Robledo. Plan to initiate inpt chemo/RT. Chemo orders placed Doctor attests: I performed a history and physical examination of this patient, developed impression and plan of care. Discussed with dictator. I agree with dictators note, documented as a scribe.
[2024-08-16] MEDS ORDERED: LOPERAMIDE 2 MG CAP PO PRN (17:19)
[2024-08-16] MEDS ORDERED: ONDANSETRON 4 MG/2 ML VIAL IVP PRN (17:19)
[2024-08-16] MEDS: SALT AND SODA MOUTHWASH 1,000 ML PO SCH (21:34)
[2024-08-17 01:50] LABS: Glucose,Whole Blood 156 mg/dL (70-110)
[2024-08-17 08:02] LABS: Glucose,Whole Blood 125 mg/dL (70-110)
--- NOTE | 2024-08-17 10:36 | P.PN ---
Subjective Patient is seen in follow-up for hypercalcemia. Calcium level 9.6 yesterday. Oral intake fair. Nervous regarding treatment of cancer. Vital signs are stable. General: No acute distress. HEENT: Head exam is unremarkable. On nasal cannula. LUNGS: No audible rhonchi or wheezes. HEART: Rate and Rhythm are regular. ABDOMEN: Nontender. EXTREMITITES: No edema. Objective - Vital Signs Vital signs: Vital Signs Temp 98.3 F 08/17/24 07:46 Pulse 94 08/17/24 09:15 Resp 16 08/17/24 07:46 BP 120/70 08/17/24 07:46 Pulse Ox 99 08/17/24 07:46 FiO2 Intake & Output 08/16/24 08/17/24 08/17/24 18:59 06:59 18:59 Intake Total 825 240 Balance 825 240 Intake: Intake, IV Titration 825 Amount Sodium Chloride 0.9% 1, 825 000 ml @ 75 mls/hr IV . [id number] [facility] Rx#:[id number] Oral 240 Other: Voiding Method Bedside Commode Bedside Commode # Voids 2 1 # Bowel Movements 1 - Labs CBC & Chem 7: 08/16/24 06:41 08/16/24 06:41 Labs: Abnormal Lab Results - Last 24 Hours (Table) 08/17/24 08/17/24 Range/Units 01:46 08:00 POC Glucose (mg/dL) 156 H 125 H (70-110) mg/dL Microbiology - Last 24 Hours (Table) 08/15/24 08:22 Gram Stain - Final Sputum Sputum Culture - Final 08/15/24 01:00 Blood Culture - Preliminary Blood Assessment and Plan Plan: Assessment: 1. 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 Vitamin D level 19.4. Calcium level 13.3 on admission and down to 9.6 as of yesterday. A lbumin 2.6. 2. Squamous cell cancer of the mediastinum. Plan: Maintain IV fluids. Status post zoledronic acid and IM calcitonin given August 15, 2024. Avoid nephrotoxins. Continue to monitor renal function and urine output.
[2024-08-17 10:45] LABS: Basophils # (A) 0.08 X 10*3/uL (0.00-0.10); Basophils % (A) 0.2 %; Eosinophils # (A) 0.01 X 10*3/uL (0.04-0.35); Eosinophils % (A) 0 %; HCT 31.6 % (37.2-46.3); HGB 9.5 g/dL (12.0-15.0); Lymphocytes # (A) 0.95 X 10*3/uL (0.90-5.00); Lymphocytes % (A) 2.5 %; MCH 28.6 pg (27.0-32.0); MCHC 30.1 g/dL (32.0-37.0); MCV 95.2 FL (80.0-97.0); Mean Platelet Volume 9.9 FL (9.5-12.2); Monocytes # (A) 1.36 X 10*3/uL (0.20-1.00); Monocytes % (A) 3.5 %; NRBC Per 100 WBC 0 X 10*3/uL (0.00-0.01); Neutrophils # (A) 35.61 X 10*3/uL (1.80-7.70); Platelet Count 286 X 10*3/uL (140-440); RBC 3.32 X 10*6/uL (4.10-5.20); RDW 17.9 % (11.5-14.5); WBC 38.69 X 10*3/uL (4.50-10.00)
[2024-08-17 11:08] LABS: BUN/Creat Ratio 15.38 Ratio (12.00-20.00); Blood Urea Nitrogen 12.3 mg/dL (9.0-27.0); Calcium 8.7 mg/dL (8.7-10.3); Carbon Dioxide 21.1 mmol/L (21.6-31.8); Chloride 105 mmol/L (96-109); Glucose 114 mg/dL (70-110); Potassium 4.4 mmol/L (3.5-5.5); Sodium 140 mmol/L (135-145)
[2024-08-17 12:07] LABS: Glucose,Whole Blood 93 mg/dL (70-110)
[2024-08-17] MEDS: DEXAMETHASONE SOD PHOSPHATE 10 MG/ML 1 ML VIAL IV ONE (12:44)
[2024-08-17] MEDS: FAMOTIDINE 20 MG/2 ML VIAL IVP ONE (12:45)
[2024-08-17] MEDS: diphenhydrAMINE 50 MG/ML 1 ML VIAL IVP ONE (12:45)
[2024-08-17] MEDS: ONDANSETRON 16 MG in SODIUM CHLORIDE 0.9% 50 ML IVPB ONE (12:46)
--- NOTE | 2024-08-17 13:12 | P.PN ---
Subjective Progress Note Date: 08/17/24 Patient is a 63-year-old female with PMH of malignant mediastinal mass (following oncologist Dr. Cas Robledo at [facility] in [facility], currently not on chemoradiation), COPD on 2 L home oxygen, GERD, presents to the ER after being directed by her oncologist to ER for leukocytosis and hypercalcemia. Christa agustin was found to have a large mediastinal mass on her previous hospital admission on 07/13/2024 for shortness of breath. 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 Patient is currently following oncologist Dr. Cas Robledo and is supposed to h ave her chemotherapy and radiation started this week. Patient has been feeling weak, dyspneic, lethargic and lightheaded from last couple days. Patient also had an episode of fall today. She felt weak in her legs while trying to get up from toilet seat and fell backward hitting the back of her head. Patient did not lose consciousness. Patient also reports worsening productive cough with greenish thick sputum. Denies fever and chills. She has been losing weight from last 6 months and have lost about 40 pounds. She is currently on 2 L of oxygen at home at all times. Appetite is generally poor because of dysphagia, nausea and chronic cough. She is also endorsing mild right sided chest pain especially worse with coughing. Denies any swelling the legs. 08/16/24 - Patient seen and examined at bedside today. Reports she is feeling slightly better than she was yesterday, however still has episodes of difficulty breathing. She states that this is not abnormal for her. Encouraged the patient to continue eating, she notes she has a lack of appetite however understands the importance of her having high caloric intake. She has no acute complaints at this time. 08/17/24 - Patient seen and examined at bedside this morning. Reported mild improvement in symptoms today. The plan is to begin inpatient chemo/radiation therapy while inpatient today. She is anxious to begin treatment, and notes that she is nervous. However has no acute complaints at this time. Review of systems: Pertinent positives and negatives as discussed in HPI, a complete review of systems was performed and all other systems are negative. Physical examination: Vital signs reviewed General: non toxic, no distress, appears older than stated age, overweight Derm: no unusual rashes/lesions, warm Head: atraumatic, normocephalic, symmetric Eyes: EOMI, no lid lag, anicteric sclera, pupils equal round reactive to light ENT: Nose and ears atraumatic Neck: No cervical lymphadenopathy, trachea midline, supple Mouth: no lip lesion, mucus membranes moist Cardiovascular: S1S2 reg, no murmur, positive dorsalis pedis pulse bilateral, no edema Lungs: CTA bilateral, no rhonchi, no rales, no accessory muscle use, decreased breath sounds noted on right middle lung Abdominal: soft, nontender to palpation, no guarding Ext: muscle strength 5 out of 5 in all 4 extremities grossly, no gross muscle atrophy, no contractures, Neuro: CN II-XI grossly intact, no gross focal neuro deficits Psych: Alert, oriented, appropriate affect Data today: Labs: WBC is 38.69, hemoglobin 9.5, hematocrit 31.6, platelet 286; sodium 140, potassium 4.4, BUN 12.3, creatinine 0.8, calcium 8.7 Assessment/Plan: This is a Patient is a 63-year-old female with PMH of malignant mediastinal mass (following oncologist Dr. 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 Case was discussed with the Emergency Room provider and decision was made to admit the patient for hypercalcemia and malignant mediastinal mass. 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 -Continue monitor CBC -Consult nephrology, hematology/oncology and radiation oncology -PET/CT in 07/28/2024 showed intense uptake within the mediastinal mass, without mediastinal or hilar metastases being identified; some scattered areas of uptake within the thoracic vertebral body suspicious for possible metastases -She is scheduled to begin radiation therapy in 08/17 as well as a weekly carbo/Taxol on 08/22 -Discussed with hematology/oncology, patient is likely to begin chemotherapy and radiation therapy while inpatient after consultation with the patient's medical oncologist Dr. Cas Robledo and radiation oncologist Dr. Clay. -Continue cardiac telemetry #Reported history of fall at home -CT brain without contrast revealed normal head/brain CT with no remarkable findings #History of COPD, not in exacerbation #Possible community-acquired pneumonia v viral pneumonia v reactive process secondary to patient's malignancy -Patient saturating well at 97% with 3 L nasal cannula -Reports increased cough with thick greenish sputum production for past couple of days -Low suspicion for pneumonia for now -Chest x-ray shows right upper lobe consolidation -Patient started on IV ceftriaxone 2 g once daily and azithromycin 500 mg p.o. once daily on 08/15/2024; antibiotics discontinued -Procalcitonin 0.10 -RSV positive -Preliminary sputum culture negative -Preliminary blood culture negative -Urine Legionella antigen currently pending -Continue monitor CBC -Resume home albuterol inhaler and DuoNeb #Elevated lactic acidosis likely secondary to malignancy and dehydration, resolved -Lactic acid 2.6 => 0.9 -Continue with IV normal saline 75 cc/h #Hypovolemic hyponatremia secondary poor oral intake, improving -Sodium 132 => 135 -Continue monitor sodium levels -If sodium level does not improve suspect euvolemic hyponatremia secondary SIADH due to underlying malignancy -Patient being maintained on IV normal saline 75 cc/h #Transaminitis, resolved -AST 21 => 19 => 16 -ALT 23 -Alkaline phosphatase 142 => 168 => 119 -Continue monitor CMP #Elevated bicarb in the setting of COPD, resolved -Continue monitor bicarb #New onset right hip discomfort, right hip total arthroplasty completed in the summer 2023 -Patient notes some new discomfort in the right hip, which was replaced in the summer 2023 -She is concerned and would like to be sure everything within the hip is okay -Right hip x-ray showed no acute osseous pathology, with postsurgical changes from right hip arthroplasty. Hardware appears to be intact. GI prophylaxis: Protonix 40 mg p.o. daily DVT Prophylaxis: Lovenox 40 mg subcu daily CODE STATUS: Full code Dictation was produced using [employer] dictation software. please excuse any grammatical, word or spelling errors. I saw and evaluated the patient during the villeda and critical portions of this en counter, and discussed the case in detail with the resident author of this note, I agree with the Assessment and Plan, and my changes, if any, are highlighted below. Patient was seen and examined. Underwent RT earlier and chemo currently. CBC and BMP significant for WBC 38.69, RBC 3.32, Hg 9.5, Hct 31.6, bicarb 21.1, AG 13.9, glu 114. Hopeful discharge tomorrow if tolerating today's treatment well. Objective - Vital Signs Vital signs: Vital Signs Temp 98.3 F 08/17/24 07:46 Pulse 78 08/17/24 07:46 Resp 16 08/17/24 07:46 BP 120/70 08/17/24 07:46 Pulse Ox 99 08/17/24 07:46 FiO2 Intake & Output 08/16/24 08/17/24 08/17/24 18:59 06:59 18:59 Intake Total 825 Balance 825 Intake: Intake, IV Titration 825 Amount Sodium Chloride 0.9% 1, 825 000 ml @ 75 mls/hr IV . [id number] DIEUDONNE Rx#:[id number] Other: Voiding Method Bedside Commode Bedside Commode # Voids 2 1 # Bowel Movements 1 - Labs CBC & Chem 7: 08/17/24 04:30 08/17/24 04:30 Labs: Abnormal Lab Results - Last 24 Hours (Table) 08/16/24 08/16/24 08/17/24 Range/Units 06:41 06:41 01:46 WBC 43.7 H (3.8-10.6) k/uL RBC 3.53 L (3.80-5.40) m/uL Hgb 10.3 L (11.4-16.0) gm/dL Hct 32.9 L (34.0-46.0) % RDW 16.2 H (11.5-15.5) % Neutrophils # (Manual) 40.64 H (1.3-7.7) k/uL Monocytes # (Manual) 1.31 H (0-1.0) k/uL Sodium 135 L (137-145) mmol/L POC Glucose (mg/dL) 156 H (70-110) mg/dL Total Protein 5.1 L (6.3-8.2) g/dL Albumin 2.6 L (3.5-5.0) g/dL Microbiology - Last 24 Hours (Table) 08/15/24 01:00 Blood Culture - Preliminary Blood 08/15/24 08:22 Gram Stain - Preliminary Sputum Sputum Culture - Preliminary
[2024-08-17] MEDS: SODIUM CHLORIDE 0.9% IV ONE ×2 (13:45→14:59)
[2024-08-17] MEDS: CARBOPLATIN IV ONE (13:45)
[2024-08-17] MEDS: PACLITAXEL IV ONE (14:59)
[2024-08-17 17:06] LABS: Glucose,Whole Blood 156 mg/dL (70-110)
--- NOTE | 2024-08-17 19:14 | P.PN ---
Subjective Progress Note Date: 08/17/24 No acute events overnight. Pt reporting improvement in symptoms. Scheduled to begin concurrent chemo/RT today. Objective - Vital Signs Vital signs: Vital Signs Temp 98.3 F 08/17/24 07:46 Pulse 94 08/17/24 09:15 Resp 16 08/17/24 07:46 BP 120/70 08/17/24 07:46 Pulse Ox 99 08/17/24 07:46 FiO2 Intake & Output 08/16/24 08/17/24 08/17/24 18:59 06:59 18:59 Intake Total 825 240 Balance 825 240 Intake: Intake, IV Titration 825 Amount Sodium Chloride 0.9% 1, 825 000 ml @ 75 mls/hr IV . [id number] DIEUDONNE Rx#:[id number] Oral 240 Other: Voiding Method Bedside Commode Bedside Commode Toilet # Voids 2 1 # Bowel Movements 1 - Constitutional General appearance: Present: average body habitus, no acute distress - EENT Eyes: Present: anicteric sclerae, EOMI ENT: Present: hearing grossly normal - Respiratory Details: breathing is even and unlabored - Cardiovascular Details: skin warm and dry - Integumentary Integumentary: Absent: cyanotic, jaundiced - Psychiatric Psychiatric: Present: A&O x's 3 - Labs CBC & Chem 7: 08/17/24 04:30 08/17/24 04:30 Labs: Abnormal Lab Results - Last 24 Hours (Table) 08/17/24 08/17/24 08/17/24 Range/Units 01:46 04:30 04:30 WBC 38.69 H (4.50-10.00) X 10*3/uL RBC 3.32 L (4.10-5.20) X 10*6/uL Hgb 9.5 L (12.0-15.0) g/dL Hct 31.6 L (37.2-46.3) % MCHC 30.1 L (32.0-37.0) g/dL RDW 17.9 H (11.5-14.5) % Immature Gran # 0.68 H (0.00-0.04) X 10*3/uL Neutrophils # 35.61 H (1.80-7.70) X 10*3/uL Monocytes # 1.36 H (0.20-1.00) X 10*3/uL Eosinophils # 0.01 L (0.04-0.35) X 10*3/uL Carbon Dioxide 21.1 L (21.6-31.8) mmol/L Anion Gap 13.90 H (4.00-12.00) mmol/L Glucose 114 H (70-110) mg/dL POC Glucose (mg/dL) 156 H (70-110) mg/dL 08/17/24 Range/Units 08:00 WBC (4.50-10.00) X 10*3/uL RBC (4.10-5.20) X 10*6/uL Hgb (12.0-15.0) g/dL Hct (37.2-46.3) % MCHC (32.0-37.0) g/dL RDW (11.5-14.5) % Immature Gran # (0.00-0.04) X 10*3/uL Neutrophils # (1.80-7.70) X 10*3/uL Monocytes # (0.20-1.00) X 10*3/uL Eosinophils # (0.04-0.35) X 10*3/uL Carbon Dioxide (21.6-31.8) mmol/L Anion Gap (4.00-12.00) mmol/L Glucose (70-110) mg/dL POC Glucose (mg/dL) 125 H (70-110) mg/dL Microbiology - Last 24 Hours (Table) 08/15/24 08:22 Gram Stain - Final Sputum Sputum Culture - Final 08/15/24 01:00 Blood Culture - Preliminary Blood Assessment and Plan (1) Squamous cell carcinoma lung Current Visit: Yes Status: Acute Priority: High Code(s): C34.90 - MALIGNANT NEOPLASM OF UNSP PART OF UNSP BRONCHUS OR LUNG SNOMED Code(s): 805050432 (2) Hypercalcemia Current Visit: Yes Status: Acute Priority: High Code(s): E83.52 - HYPERCALCEMIA SNOMED Code(s): 26852646 (3) Leukocytosis Current Visit: Yes Status: Acute Priority: Medium Code(s): D72.829 - ELEVATED WHITE BLOOD CELL COUNT, UNSPECIFIED SNOMED Code(s): 038084544 Plan: Hypercalcemia, leukocytosis: Presented with weakness and elevated calcium/WBCs -Calcium 13.0, ionized calcium 6.9. WBC Patient was given Zometa, IV hydration and calcitonin. -CT brain was negative for acute intracranial processes. -Chest x-ray showing possible right upper lobe pneumonia, patient was started on IV antibiotics. Viral testing positive for RSV -Hypercalcemia likely r/t suspected osseous metastatic disease. Zometa, IV fluids and calcitonin given. Calcium now normal, 8.7 today -Leukocytosis has been persisting, increased WBC likely reactive related to acute condition/acute infection, RSV. WBC showing improvement. Continue to mon itor Squamous cell carcinoma of lung: -Oncology history as stated in the HPI -Biopsy of mediastinal mass revealed poorly differentiated non-small carcinoma consistent with squamous cell carcinoma. PET/CT on 07/28/2024 showed intense uptake within the mediastinal mass. No mediastinal or hilar metastasis identified. With some scattered areas of uptake within the thoracic vertebral body suspicious for metastasis. -She was scheduled to begin RT on 08/17 and weekly carbo/taxol on 08/22 -Rad onc consulted to evaluate to begin RT inpt. Case discussed with Dr. Clay and her oncologist Dr. Robledo. Plan to initiate inpt concurrent chemo/RT today
[2024-08-17 21:04] LABS: Glucose,Whole Blood 180 mg/dL (70-110)
[2024-08-18 06:57] LABS: Glucose,Whole Blood 134 mg/dL (70-110)
[2024-08-18 07:24] LABS: Glucose,Whole Blood 134 mg/dL (70-110)
[2024-08-18 07:56] VITALS: BP 115/70; PULSE 81; RESP 16; TEMP 98
[2024-08-18 08:37] LABS: Basophils # (A) 0.06 X 10*3/uL (0.00-0.10); Basophils % (A) 0.2 %; Eosinophils # (A) 0 X 10*3/uL (0.04-0.35); Eosinophils % (A) 0 %; HCT 30.3 % (37.2-46.3); HGB 9.4 g/dL (12.0-15.0); Lymphocytes # (A) 1.43 X 10*3/uL (0.90-5.00); MCV 93.5 FL (80.0-97.0); Mean Platelet Volume 10.2 FL (9.5-12.2); Monocytes # (A) 1.02 X 10*3/uL (0.20-1.00); Monocytes % (A) 2.9 %; NRBC Per 100 WBC 0 X 10*3/uL (0.00-0.01); Neutrophils # (A) 32.58 X 10*3/uL (1.80-7.70); Neutrophils % (A) 91.4 %; Platelet Count 285 X 10*3/uL (140-440); RBC 3.24 X 10*6/uL (4.10-5.20); RDW 18.1 % (11.5-14.5); WBC 35.63 X 10*3/uL (4.50-10.00)
--- NOTE | 2024-08-18 10:39 | P.PN ---
Subjective Patient is seen in follow-up for hypercalcemia. Calcium level 8.7 yesterday. Oral intake fair. Started on chemotherapy this admission. Vital signs are stable. General: No acute distress. HEENT: Head exam is unremarkable. On nasal cannula. LUNGS: No audible rhonchi or wheezes. HEART: Rate and Rhythm are regular. ABDOMEN: Nontender. EXTREMITITES: No edema. Objective - Vital Signs Vital signs: Vital Signs Temp 98.0 F 08/18/24 07:15 Pulse 88 08/18/24 07:54 Resp 16 08/18/24 07:15 BP 115/70 08/18/24 07:15 Pulse Ox 98 08/18/24 07:15 FiO2 Intake & Output 08/17/24 08/18/24 08/18/24 18:59 06:59 18:59 Intake Total 1800 240 Balance 1800 240 Weight 78.5 kg Intake: Oral 1800 240 Other: Voiding Method Toilet Toilet # Voids 5 - Labs CBC & Chem 7: 08/18/24 06:26 08/17/24 04:30 Labs: Abnormal Lab Results - Last 24 Hours (Table) 08/17/24 08/17/24 08/17/24 Range/Units 04:30 04:30 17:05 WBC 38.69 H (4.50-10.00) X 10*3/uL RBC 3.32 L (4.10-5.20) X 10*6/uL Hgb 9.5 L (12.0-15.0) g/dL Hct 31.6 L (37.2-46.3) % MCHC 30.1 L (32.0-37.0) g/dL RDW 17.9 H (11.5-14.5) % Immature Gran # 0.68 H (0.00-0.04) X 10*3/uL Neutrophils # 35.61 H (1.80-7.70) X 10*3/uL Monocytes # 1.36 H (0.20-1.00) X 10*3/uL Eosinophils # 0.01 L (0.04-0.35) X 10*3/uL Carbon Dioxide 21.1 L (21.6-31.8) mmol/L Anion Gap 13.90 H (4.00-12.00) mmol/L Glucose 114 H (70-110) mg/dL POC Glucose (mg/dL) 156 H (70-110) mg/dL 08/17/24 08/18/24 08/18/24 Range/Units 20:57 06:26 06:54 WBC 35.63 H (4.50-10.00) X 10*3/uL RBC 3.24 L (4.10-5.20) X 10*6/uL Hgb 9.4 L (12.0-15.0) g/dL Hct 30.3 L (37.2-46.3) % MCHC 31.0 L (32.0-37.0) g/dL RDW 18.1 H (11.5-14.5) % Immature Gran # 0.54 H (0.00-0.04) X 10*3/uL Neutrophils # 32.58 H (1.80-7.70) X 10*3/uL Monocytes # 1.02 H (0.20-1.00) X 10*3/uL Eosinophils # 0 L (0.04-0.35) X 10*3/uL Carbon Dioxide (21.6-31.8) mmol/L Anion Gap (4.00-12.00) mmol/L Glucose (70-110) mg/dL POC Glucose (mg/dL) 180 H 134 H (70-110) mg/dL 08/18/24 Range/Units 07:23 WBC (4.50-10.00) X 10*3/uL RBC (4.10-5.20) X 10*6/uL Hgb (12.0-15.0) g/dL Hct (37.2-46.3) % MCHC (32.0-37.0) g/dL RDW (11.5-14.5) % Immature Gran # (0.00-0.04) X 10*3/uL Neutrophils # (1.80-7.70) X 10*3/uL Monocytes # (0.20-1.00) X 10*3/uL Eosinophils # (0.04-0.35) X 10*3/uL Carbon Dioxide (21.6-31.8) mmol/L Anion Gap (4.00-12.00) mmol/L Glucose (70-110) mg/dL POC Glucose (mg/dL) 134 H (70-110) mg/dL Microbiology - Last 24 Hours (Table) 08/15/24 01:00 Blood Culture - Preliminary Blood 08/15/24 08:22 Gram Stain - Final Sputum Sputum Culture - Final Assessment and Plan Plan: Assessment: 1. 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 Vitamin D level 19.4. Calcium level 13.3 on admission and down to 8.7 as of yesterday. Albumin 2.6. 2. Squamous cell cancer of the mediastinum. Plan: Maintain IV fluids. Status post zoledronic acid and IM calcitonin given August 15, 2024. Avoid nephrotoxins. Continue to monitor renal function and urine output. I will sign off. Please call with any questions or concerns.
[2024-08-18 11:03] LABS: Magnesium 1.7 mg/dL (1.5-2.4)
--- NOTE | 2024-08-18 11:04 | P.DS ---
Providers Date of admission: 08/15/24 01:58 Attending physician: Carson Saavedra MD Consults: 08/15/24 01:56 Consult Physician Routine Consulting Provider: Jaycob Proctor Consult Reason/Comments: Squamous cell lung cancer, leukocytosis Do you want consulting provider notified?: Yes Consult Physician Routine Consulting Provider: Latonia Waters Consult Reason/Comments: Hypercalcemia, squamous cell lung cancer Do you want consulting provider notified?: Yes 08/15/24 08:24 Consult Physician Stat Consulting Provider: Homer Clay Consult Reason/Comments: Stage IIIA lung cancer, hypercalcemia Do you want consulting provider notified?: Yes Primary care physician: Sosa [facility] Course: Discharge diagnoses; #Symptomatic severe hypercalcemia in the setting of underlying malignancy, likely paraneoplastic due to PTHrp #Leukocytosis in the setting of underlying malignancy #squamous cell carcinoma of the mediastinal mass #History of COPD, not in exacerbation #Possible community-acquired pneumonia v viral pneumonia v reactive process secondary to patient's malignancy #Elevated lactic acidosis likely secondary to malignancy and dehydration, resolved #Hypovolemic hyponatremia secondary poor oral intake, improving #Transaminitis, resolved #Elevated bicarb in the setting of COPD, resolved #New onset right hip discomfort, right hip total arthroplasty completed in the summer 2023 Hospital course; 63-year-old female with PMH of malignant mediastinal mass (following oncologist Dr. Cas Robledo at [facility] in [facility], currently not on chemoradiation), COPD on 2 L home oxygen, GERD, presents to the ER after being directed by her oncologist to ER for leukocytosis and hypercalcemia. Patient was found to have a large mediastinal mass on her previous hospital admission on 07/13/2024 for shortness of breath. 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 Patient is currently following oncologist Dr. Cas Robledo and is supposed to have her chemotherapy and radiation started this week. Patient has been feeling weak, dyspneic, lethargic and lightheaded from last couple days. Patient also had an episode of fall today. She felt weak in her legs while trying to get up from toilet seat and fell backward hitting the back of her head. Patient did not lose consciousness. Patient also reports worsening productive cough with greenish thick sputum. Denies fever and chills. She has been losing weight from last 6 months and have lost about 40 pounds. She is currently on 2 L of oxygen at home at all times. Appetite is generally poor because of dysphagia, nausea and chronic cough. She was seen by both medical oncology and radiation oncology who discussed with her medical oncologist, John Robledo and decided to begin both chemotherapy, with carbo/Taxol and radiation therapy. Both of which began on 08/17/2024. Patient tolerated first treatments well, without any complaints. She underwent her second radiation therapy session on 08/18/2024 prior to discharge. Physical examination: Vital signs reviewed General: non toxic, no distress, appears older than stated age, overweight Derm: no unusual rashes/lesions, warm Head: atraumatic, normocephalic, symmetric Eyes: EOMI, no lid lag, anicteric sclera, pupils equal round reactive to light ENT: Nose and ears atraumatic Neck: No cervical lymphadenopathy, trachea midline, supple Mouth: no lip lesion, mucus membranes moist Cardiovascular: S1S2 reg, no murmur, positive dorsalis pedis pulse bilateral, no edema Lungs: CTA bilateral, no rhonchi, no rales, no accessory muscle use, decreased breath sounds noted on right middle lung Abdominal: soft, nontender to palpation, no guarding Ext: muscle strength 5 out of 5 in all 4 extremities grossly, no gross muscle atrophy, no contractures, Neuro: CN II-XI grossly intact, no gross focal neuro deficits Psych: Alert, oriented, appropriate affect Dictation was produced using [employer] dictation software. please excuse any grammatical, word or spelling errors. I saw and evaluated the patient during the villeda and critical portions of this encounter, and discussed the case in detail with the resident author of this note, I agree with the Assessment and Plan, and my changes, if any, are highlighted below. Patient was seen and examined. Feeling well. Plans for another RT today. She will follow up with Oncology in the outpatient setting for continued chemo and RT. CBC and BMP significant for WBC 35.63, RBC 3.24, Hg 9.4, Hct 30.3, glu 137, Ca 8, T. Bili < 0.2, alb 2.8. Mag 1.7. Hopeful discharge today after RT. Patient Condition at Discharge: Stable Plan - Discharge Summary Discharge Rx Participant: Yes New Discharge Prescriptions: Continue Omeprazole 20 mg PO DAILY Amitriptyline HCl 25 mg PO HS Albuterol Inhaler [Ventolin Hfa Inhaler] 2 puff INHALATION RT-Q4H PRN PRN Reason: Shortness Of Breath Umeclidinium Brm/Vilanterol Tr [Anoro Ellipta 62.5-25 Mcg INH] 1 puff INHALATION RT-DAILY Ipratropium-Albuterol Nebulize [Duoneb 0.5 mg-3 mg/3 ml Soln] 3 ml INHALATION RT-QID PRN PRN Reason: Shortness Of Breath predniSONE 50 mg PO DAILY #10 tab Prochlorperazine [Compazine] 10 mg PO Q6H PRN PRN Reason: Nausea ondansetron HCL [Zofran] 8 mg PO Q8HR PRN PRN Reason: Nausea Ondansetron Odt [Zofran ODT] 4 mg PO Q8H PRN PRN Reason: Nausea traMADol HCL 50 mg PO TID PRN PRN Reason: Pain Cetirizine HCl 10 mg PO HS L.acidoph,Paracasei, B.lactis [Probiotic] 1 cap PO HS Benzonatate [Tessalon Perle] 200 mg PO TID PRN PRN Reason: Cough Discharge Medication List Albuterol Inhaler [Ventolin Hfa Inhaler] 2 puff INHALATION RT-Q4H PRN 02/04/24 [History] Amitriptyline HCl 25 mg PO HS 02/04/24 [History] Cetirizine HCl 10 mg PO HS 02/04/24 [History] Omeprazole 20 mg PO DAILY 02/04/24 [History] traMADol HCL 50 mg PO TID PRN 02/04/24 [History] Ipratropium-Albuterol Nebulize [Duoneb 0.5 mg-3 mg/3 ml Soln] 3 ml INHALATION RT-QID PRN 07/13/24 [History] L.acidoph,Paracasei, B.lactis [Probiotic] 1 cap PO HS 07/13/24 [History] Umeclidinium Brm/Vilanterol Tr [Anoro Ellipta 62.5-25 Mcg INH] 1 puff INHALATION RT-DAILY 07/13/24 [History] predniSONE 50 mg PO DAILY #10 tab 07/15/24 [Rx] Benzonatate [Tessalon Perle] 200 mg PO TID PRN 08/15/24 [History] Ondansetron Odt [Zofran ODT] 4 mg PO Q8H PRN 08/15/24 [History] Prochlorperazine [Compazine] 10 mg PO Q6H PRN 08/15/24 [History] ondansetron HCL [Zofran] 8 mg PO Q8HR PRN 08/15/24 [History] Follow up Appointment(s)/Referral(s): Sosa Galvin MD [Primary Care Provider] - 08/23/24 11:00 am (appointment [facility]) Activity/Diet/Wound Care/Special Instructions: Activity: As tolerated. Take breaks as needed. Diet: Heart healthy and carb consistent diet. Avoid salts, or foods with hidden salts such as canned or boxed foods and frozen dinners. Extra salt makes your heart work harder and traps the fluid in your body for longer. Special Instructions: Take all of your medications as directed and remember to keep all of your doctor's appointments and follow-up as needed. Thank you for allowing us to participate in your care, it was truly a pleasure having you for our patient!!! Discharge Disposition: HOME SELF-CARE
[2024-08-18 11:06] LABS: ALT 23 U/L (8-44); AST 15 U/L (13-35); Albumin 2.8 g/dL (3.8-4.9); Albumin/Globulin Ratio 1.33 Ratio (1.60-3.17); Alkaline Phosphatase 108 U/L (41-126); BUN/Creat Ratio 20.29 Ratio (12.00-20.00); Blood Urea Nitrogen 14.2 mg/dL (9.0-27.0); Carbon Dioxide 23.2 mmol/L (21.6-31.8); Chloride 108 mmol/L (96-109); Globulin 2.1 g/dL (1.6-3.3); Glucose 137 mg/dL (70-110); Potassium 4.3 mmol/L (3.5-5.5); Sodium 140 mmol/L (135-145); Total Bilirubin <0.2 mg/dL (0.3-1.2); Total Protein 4.9 g/dL (6.2-8.2)
== END 2024-08-18 12:15 | disposition home or self-care (01) | DRG 641 ==
LOC: EC 22:31 → 3SCARD 08-15 01:58 → 5NMEDONC 08-16 17:54
PROVIDERS: ADMIT Internal Medicine; ATTEND Internal Medicine
PROC: DB0 Radiation Therapy, Respiratory System, Beam Radiation (ICD-10-PCS; principal; 2024-08-17 16:50)
PROC: DB021ZZ Beam Radiation of Lung using Photons 1 - 10 MeV (ICD-10-PCS; principal; 2024-08-17 16:50)
DX: E83.52 Hypercalcemia (principal); E87.20 Acidosis, unspecified; C34.90 Malignant neoplasm of unspecified part of unspecified bronchus or lung; C38.3 Malignant neoplasm of mediastinum, part unspecified; B97.4 Respiratory syncytial virus as the cause of diseases classified elsewhere; E87.1 Hypo-osmolality and hyponatremia; D72.828 Other elevated white blood cell count; E86.0 Dehydration; L40.50 Arthropathic psoriasis, unspecified; J44.9 Chronic obstructive pulmonary disease, unspecified; R13.10 Dysphagia, unspecified; E86.1 Hypovolemia; F41.9 Anxiety disorder, unspecified; F90.9 Attention-deficit hyperactivity disorder, unspecified type; H91.91 Unspecified hearing loss, right ear; Z87.01 Personal history of pneumonia (recurrent); Z99.81 Dependence on supplemental oxygen; Z96.641 Presence of right artificial hip joint; Z91.81 History of falling; Z79.899 Other long term (current) drug therapy; Z88.6 Allergy status to analgesic agent; Z88.8 Allergy status to other drugs, medicaments and biological substances; Z79.52 Long term (current) use of systemic steroids; Z79.891 Long term (current) use of opiate analgesic; Z87.891 Personal history of nicotine dependence; K21.9 Gastro-esophageal reflux disease without esophagitis; L40.9 Psoriasis, unspecified; R74.01 Elevation of levels of liver transaminase levels
CPT/HCPCS: 36410; 36415; 36600; 70450; 71046; 73501; 76937; 80048; 80053; 82306; 82330; 83605; 83735; 83970; 84145; 85025; 85610; 85730; 87040; 87070; 87205; 87636; 93005; 94640; 94760; 96361; 96365; 96366; 96367; 96375; 96376; 99285

== ENCOUNTER 2024-08-20 08:43 | Emergency (ER) | payer OTHER ==
--- NOTE | 2024-08-20 09:34 | ED ---
General Adult HPI - General Chief complaint: ENT Stated complaint: Coughing up blood Time Seen by Provider: 08/20/24 09:00 Source: patient, RN notes reviewed, old records reviewed Mode of arrival: wheelchair Limitations: no limitations - History of Present Illness Initial comments: This is a 63-year-old female with a past medical history significant for squamous cell carcinoma. Patient has received 1 treatment of chemo and 2 of radiation. Patient states she was coughing up some blood yesterday but it was less than a teaspoon and her oncologist told her that was not concerning but if it got worse to come into the emergency department. Patient states this morning she coughed up quite a bit of blood and she thought there was even some tissue in it. Patient decided to come in at that time. Patient is mildly short of breath. Patient denies chest pain or palpitations. Patient denies any recent fever chills or cough. - Related Data Home Medications Medication Instructions Recorded Confirmed Albuterol Inhaler [Ventolin Hfa 2 puff INHALATION RT-Q4H PRN 02/04/24 08/15/24 Inhaler] Amitriptyline HCl 25 mg PO HS 02/04/24 08/15/24 Cetirizine HCl 10 mg PO HS 02/04/24 08/15/24 Omeprazole 20 mg PO DAILY 02/04/24 08/15/24 traMADol HCL 50 mg PO TID PRN 02/04/24 08/15/24 Ipratropium-Albuterol Nebulize 3 ml INHALATION RT-QID PRN 07/13/24 08/15/24 [Duoneb 0.5 mg-3 mg/3 ml Soln] L.acidoph,Paracasei, B.lactis 1 cap PO HS 07/13/24 08/15/24 [Probiotic] Umeclidinium Brm/Vilanterol Tr 1 puff INHALATION RT-DAILY 07/13/24 08/15/24 [Anoro Ellipta 62.5-25 Mcg INH] Benzonatate [Tessalon Perle] 200 mg PO TID PRN 08/15/24 08/15/24 Ondansetron Odt [Zofran ODT] 4 mg PO Q8H PRN 08/15/24 08/15/24 Prochlorperazine [Compazine] 10 mg PO Q6H PRN 08/15/24 08/15/24 ondansetron HCL [Zofran] 8 mg PO Q8HR PRN 08/15/24 08/15/24 Previous Rx's Medication Instructions Recorded predniSONE 50 mg PO DAILY #10 tab 07/15/24 Allergies Allergy/AdvReac Type Severity Reaction Status Date / Time lactose Allergy Unknown Verified 08/15/24 08:06 mold Allergy Unknown Verified 08/15/24 08:06 nickel Allergy Rash/Hives Verified 08/15/24 08:06 NSAIDS (Non-Steroidal AdvReac ACID REFLUX Verified 08/15/24 08:06 Anti-Inflamma dust Allergy Unknown Uncoded 08/15/24 08:06 Review of Systems ROS Statement: Those systems with pertinent positive or pertinent negative responses have been documented in the HPI. ROS Other: All systems not noted in ROS Statement are negative. Past Medical History Past Medical History: Cancer, COPD, GERD/Reflux, Hearing Disorder / Deafness, Pneumonia, Skin Disorder Additional Past Medical History / Comment(s): psoriatic arthritis, right ear deaf, psoriasis hands feet. squmaous cell chest History of Any Multi-Drug Resistant Organisms: None Reported Past Surgical History: Back Surgery, Breast Surgery, Cholecystectomy, Joint Replacement, Orthopedic Surgery, Tubal Ligation Additional Past Surgical History / Comment(s): R hip replacement January 2024. 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 Patient is nontoxic and well- hydrated and is in mild distress. ENT: Neck is soft and supple. No significant lymphadenopathy is noted. Oropharynx is clear. Moist mucous membranes. Neck has full range of motion without eliciting any pain. EYES: The sclera were anicteric and conjunctiva were pink and moist. Extraocular movements were intact and pupils were equal round and reactive to light. Eyelids were unremarkable. PULMONARY: Unlabored respirations. Good breath sounds bilaterally. No audible rales rhonchi or wheezing was noted. CARDIOVASCULAR: There is a regular rate and rhythm without any murmurs gallops or rubs. ABDOMEN: Soft and nontender with normal bowel sounds. SKIN: Skin is clear with no lesions or rashes and otherwise unremarkable. NEUROLOGIC: Patient is alert and oriented x3. Cranial nerves II through XII are grossly intact. Motor and sensory are also intact. Normal speech, volume and content. Symmetrical smile. MUSCULOSKELETAL: Normal extremities with adequate strength and full range of motion. No lower extremity swelling or edema. No calf tenderness. LYMPHATICS: No significant lymphadenopathy is noted PSYCHIATRIC: Normal psychiatric evaluation. Limitations: no limitations Course Vital Signs 08/20/24 08/20/24 08/20/24 08:51 09:24 09:42 Temperature 99 F Pulse Rate 114 H 103 H 98 Respiratory 26 H 24 24 Rate Blood Pressure 125/49 99/58 104/60 O2 Sat by Pulse 98 98 97 Oximetry 08/20/24 08/20/24 08/20/24 09:54 10:05 10:17 Temperature Pulse Rate 96 97 100 Respiratory Rate Blood Pressure O2 Sat by Pulse Oximetry 08/20/24 08/20/24 10:26 12:24 Temperature Pulse Rate 89 90 Respiratory 22 22 Rate Blood Pressure 113/67 97/58 O2 Sat by Pulse 97 97 Oximetry Medical Decision Making - Medical Decision Making EKG is interpreted by myself but EKG shows sinus tachycardia at 110 bpm WV interval 137 QRS is 58 QT interval is 290 QTc is 355. Patient's EKG shows no ST segment elevation. Was pt. sent in by a medical professional or institution (, PA, CLINICAL RESEARCH MANAGER, urgent care, hospital, or [facility]...) When possible be specific @ -No Did you speak to anyone other than the patient for history (EMS, parent, family, police, friend...)? What history was obtained from this source @ -No Did you review nursing and triage notes (agree or disagree)? Why? @ -I reviewed and agree with nursing and triage notes Were old charts reviewed (outside hosp., previous admission, EMS record, old EKG, old radiological studies, urgent care reports/EKG's, [facility] records)? Report findings @ -I reviewed prior lab work from previous admissions. Differential Diagnosis? @ -Pulmonary embolism, pneumonia, bronchitis, abscess, hemorrhaging tumor this is not an all-inclusive list EKG interpreted by me (3pts min.). @ -As above X-rays interpreted by me (1pt min.). @ -Chest x-ray shows a mediastinal mass on the right CT interpreted by me (1pt min.). @ -CT scan shows increase in size of the mediastinal mass and encroachment upon the superior vena cava U/S interpreted by me (1pt. min.). @ -None done What testing was considered but not performed or refused? (CT, X-rays, U/S, labs)? Why? @ -None What meds were considered but not given or refused? Why? @ -None Did you discuss the management of the patient with other professionals (professionals i.e. , PA, CLINICAL RESEARCH MANAGER, lab, RT, psych nurse, social service assistant, brake repair mechanic, teacher, second officer, telehealth case manager)? Give summary @ -Dr. Anguiano saw the patient in the emergency department and agreed that the patient be discharged home with she stopped bleeding. Was smoking cessation discussed for >3mins.? @ -No Was critical care preformed (if so, how long)? @ -No Were there social determinants of health that impacted care today? How? (Homelessness, low income, unemployed, alcoholism, drug addiction, transportation, low edu. Level, literacy, decrease access to med. care, care home, rehab)? @ -No Was there de-escalation of care discussed even if they declined (Discuss DNR or withdrawal of care, Hospice)? DNR status @ -No What co-morbidities impacted this encounter? (DM, HTN, Smoking, COPD, CAD, Cancer, CVA, ARF, Chemo, Hep., AIDS, mental health diagnosis, sleep apnea, morbid obesity)? @ -None Was patient admitted / discharged? Hospital course, mention meds given and route, prescriptions, significant lab abnormalities, going to OR and other pertinent info. @ -Patient received inhaled TXA her bleeding significantly Doose to the point where it was just a little pink on tissue. Patient felt comfortable going home want to go home and will be following up tomorrow. Undiagnosed new problem with uncertain prognosis? @ -No Drug Therapy requiring intensive monitoring for toxicity (Heparin, Nitro, Insulin, Cardizem)? @ -No Were any procedures done? @ -No Diagnosis/symptom? @ -Hemoptysis Acute, or Chronic, or Acute on Chronic? @ -Acute Uncomplicated (without systemic symptoms) or Complicated (systemic symptoms)? @ -Complicated Side effects of treatment? @ -No Exacerbation, Progression, or Severe Exacerbation? @ -No Poses a threat to life or bodily function? How? (Chest pain, [place], [place], pneumonia, PE, COPD, DKA, ARF, appy, cholecystitis, CVA, Diverticulitis, Homicidal, Suicidal, threat to staff... and all critical care pts) @ -Yes this could lead to anemia and morbidity or mortality Diagnosis/symptom? @ -Lung cancer history Acute, or Chronic, or Acute on Chronic? @ -Chronic Uncomplicated (without systemic symptoms) or Complicated (systemic symptoms)? @ -Complicated Side effects of treatment? @ -None Exacerbation, Progression, or Severe Exacerbation] @ -No Poses a threat to life or bodily function? @ -No - Lab Data Result diagrams: 08/20/24 09:31 08/20/24 09:31 Lab Results 08/20/24 08/20/24 08/20/24 Range/Units 09:31 09:31 09:31 WBC 38.9 H (3.8-10.6) k/uL RBC 3.48 L (3.80-5.40) m/uL Hgb 10.3 L (11.4-16.0) gm/dL Hct 31.5 L (34.0-46.0) % MCV 90.3 (80.0-100.0) fL MCH 29.7 (25.0-35.0) pg MCHC 32.8 (31.0-37.0) g/dL RDW 16.4 H (11.5-15.5) % Plt Count 232 (150-450) k/uL MPV 7.4 Neutrophils % (Manual) 98 % Lymphocytes % (Manual) 1 % Monocytes % (Manual) 1 % Neutrophils # (Manual) 38.12 H (1.3-7.7) k/uL Lymphocytes # (Manual) 0.39 L (1.0-4.8) k/uL Monocytes # (Manual) 0.39 (0-1.0) k/uL Nucleated RBCs 0 (0-0) /100 WBC Manual Slide Review Performed Hypochromasia Slight Anisocytosis Slight PT 11.2 (10.0-12.5) sec INR 1.0 (<1.2) APTT 20.1 L (22.0-30.0) sec D-Dimer 5.03 H (<0.60) mg/L FEU Sodium 133 L (137-145) mmol/L Potassium 4.3 (3.5-5.1) mmol/L Chloride 103 (98-107) mmol/L Carbon Dioxide 22 (22-30) mmol/L Anion Gap 8 mmol/L BUN 10 (7-17) mg/dL Creatinine 0.62 (0.52-1.04) mg/dL Est GFR (CKD-EPI)AfAm >90 (>60 ml/min/1.73 sqM) Est GFR (CKD-EPI)NonAf >90 (>60 ml/min/1.73 sqM) Glucose 155 H (74-99) mg/dL Lactic Ac Sepsis Rflx Plasma Lactic Acid Jeremy (0.7-2.0) mmol/L Calcium 7.6 L (8.4-10.2) mg/dL Magnesium 1.6 (1.6-2.3) mg/dL Total Bilirubin 0.6 (0.2-1.3) mg/dL AST 19 (14-36) U/L ALT 25 (4-34) U/L Alkaline Phosphatase 122 (38-126) U/L Troponin I (0.000-0.034) ng/mL Total Protein 5.4 L (6.3-8.2) g/dL Albumin 2.8 L (3.5-5.0) g/dL 08/20/24 08/20/24 08/20/24 Range/Units 09:31 09:31 10:15 WBC (3.8-10.6) k/uL RBC (3.80-5.40) m/uL Hgb (11.4-16.0) gm/dL Hct (34.0-46.0) % MCV (80.0-100.0) fL MCH (25.0-35.0) pg MCHC (31.0-37.0) g/dL RDW (11.5-15.5) % Plt Count (150-450) k/uL MPV Neutrophils % (Manual) % Lymphocytes % (Manual) % Monocytes % (Manual) % Neutrophils # (Manual) (1.3-7.7) k/uL Lymphocytes # (Manual) (1.0-4.8) k/uL Monocytes # (Manual) (0-1.0) k/uL Nucleated RBCs (0-0) /100 WBC Manual Slide Review Hypochromasia Anisocytosis PT (10.0-12.5) sec INR (<1.2) APTT (22.0-30.0) sec D-Dimer (<0.60) mg/L FEU Sodium (137-145) mmol/L Potassium (3.5-5.1) mmol/L Chloride (98-107) mmol/L Carbon Dioxide (22-30) mmol/L Anion Gap mmol/L BUN (7-17) mg/dL Creatinine (0.52-1.04) mg/dL Est GFR (CKD-EPI)AfAm (>60 ml/min/1.73 sqM) Est GFR (CKD-EPI)NonAf (>60 ml/min/1.73 sqM) Glucose (74-99) mg/dL Lactic Ac Sepsis Rflx Y Plasma Lactic Acid Jeremy 4.4 H* (0.7-2.0) mmol/L Calcium (8.4-10.2) mg/dL Magnesium (1.6-2.3) mg/dL Total Bilirubin (0.2-1.3) mg/dL AST (14-36) U/L ALT (4-34) U/L Alkaline Phosphatase (38-126) U/L Troponin I 0.017 (0.000-0.034) ng/mL Total Protein (6.3-8.2) g/dL Albumin (3.5-5.0) g/dL Disposition Clinical Impression: Squamous cell carcinoma lung, Hemoptysis Disposition: HOME SELF-CARE Condition: Good Instructions (If sedation given, give patient instructions): Coughing Up Blood (Hemoptysis) (ED) Additional Instructions: Patient should follow-up with oncology tomorrow. Patient to return if there is any new or worsening symptoms Is patient prescribed a controlled substance at d/c from ED?: No Referrals: Sosa Galvin MD [Primary Care Provider] - 1-2 days Time of Disposition: 12:42
[2024-08-20] MEDS: LORazepam 2 MG/ML INJ IV STA (09:39)
[2024-08-20 09:53] LABS: Anisocytosis Slight; HCT 31.5 % (34.0-46.0); HGB 10.3 gm/dL (11.4-16.0); Hypochromasia Slight; MCH 29.7 pg (25.0-35.0); MCHC 32.8 g/dL (31.0-37.0); MCV 90.3 fL (80.0-100.0); Mean Platelet Volume 7.4; Platelet Count 232 k/uL (150-450); RBC 3.48 m/uL (3.80-5.40); RDW 16.4 % (11.5-15.5); WBC 38.9 k/uL (3.8-10.6)
[2024-08-20] MEDS: TRANEXAMIC ACID 1,000 MG/10 ML VIAL MISCELLANE ONE (09:53)
--- NOTE | 2024-08-20 09:58 | XR ---
EXAMINATION TYPE: XR chest 2V DATE OF EXAM: 08/20/2024 9:49 AM COMPARISON: Chest radiographs from 08/15/2024, 07/27/2024, PET CT 07/28/2024, CTA chest 07/13/2024 TECHNIQUE: XR chest 2V Frontal and lateral views of the chest. CLINICAL INDICATION:Female, 63 years old with history of difficulty breathing; FINDINGS: Lungs/Pleura: There is flattening of the diaphragm with increased lucency of the lungs. No evidence o f pneumothorax or pleural effusion. There is right hilar/suprahilar abnormal soft tissue consistent w ith previously seen mediastinal mass. Pulmonary vascularity: Unremarkable. Heart/mediastinum: Mildly prominent heart size. Musculoskeletal: Multiple level degenerative disc disease changes seen throughout the spine. Other: Cholecystectomy clips in the right upper quadrant. IMPRESSION: 1. Right hilar/suprahilar mass redemonstrated highly concerning for malignancy as seen on prior PET/C T. 2. COPD changes. [facility], , 08/20/2024 9:55 AM
[2024-08-20 10:04] LABS: ALT 25 U/L (4-34); AST 19 U/L (14-36); African American GFR (CKD) >90 (>60 ml/min/1.73 sqM); Albumin 2.8 g/dL (3.5-5.0); Alkaline Phosphatase 122 U/L (38-126); Anion Gap 8 mmol/L; Blood Urea Nitrogen 10 mg/dL (7-17); Calcium 7.6 mg/dL (8.4-10.2); Carbon Dioxide 22 mmol/L (22-30); Chloride 103 mmol/L (98-107); Glucose 155 mg/dL (74-99); Magnesium 1.6 mg/dL (1.6-2.3); Non-African American GFR(CKD) >90 (>60 ml/min/1.73 sqM); Potassium 4.3 mmol/L (3.5-5.1); Sodium 133 mmol/L (137-145); Total Bilirubin 0.6 mg/dL (0.2-1.3); Total Protein 5.4 g/dL (6.3-8.2)
[2024-08-20 10:18] LABS: Prothrombin Time 11.2 sec (10.0-12.5)
[2024-08-20] MEDS: SODIUM CHLORIDE 0.9% 1,000 ML IV ONE (10:25)
[2024-08-20 10:27] LABS: Partial Thromboplastin Time 20.1 sec (22.0-30.0)
[2024-08-20 10:49] LABS: Lymphocytes # (M) 0.39 k/uL (1.0-4.8); Monocytes # (M) 0.39 k/uL (0-1.0); Neutrophils # (M) 38.12 k/uL (1.3-7.7); Neutrophils % (M) 98 %; Nucleated Red Blood Cells 0 /100 WBC (0-0); Total Cells Counted 200
--- NOTE | 2024-08-20 11:52 | CT ---
EXAMINATION TYPE: CT chest angio for PE CT DLP: 424.3 mGycm, Automated exposure control for dose reduction was used. DATE OF EXAM: 08/20/2024 11:15 AM COMPARISON: . Chest radiograph from same day. PET CT 07/28/2024, CTA chest 07/13/2024 CLINICAL INDICATION:Female, 63 years old with history of Hemoptysis, elevated D-dimer; lung ca/ chemo /radiation/dimple/hemptsis TECHNIQUE/CONTRAST: CTA scan of the thorax is performed with IV Contrast, patient injected with 100 mL of Isovue 370, pul monary embolism protocol. MIP images are created and reviewed. FINDINGS: Pulmonary Artery: There is no evidence for a filling defect within the pulmonary vasculature to sugge st acute pulmonary embolism. The pulmonary artery is of normal size. Mediastinal mass encases the r ight main pulmonary artery with mild narrowing. Additional encasement of the right upper lobe and pro ximal right middle lobe pulmonary arteries. Lungs/Pleura: Mild biapical paraseptal emphysematous changes. No pneumothorax. Trace right pleural ef fusion. Extension of mediastinal mass into the medial aspect of the right upper lobe. There is surrou nding interlobular septal thickening and groundglass opacities. Airway: Large airways are patent. There is encasement with mild narrowing of the right mainstem bronc hus due to mediastinal mass. Heart: Heart is within normal limits for size.. No pericardial effusion. Vasculature: No evidence of aortic aneurysm. Minimal atherosclerotic calcification of the aorta and i ts branches. Mediastinal mass invades into the SVC without complete obstruction. Mediastinum: No enlargement of mediastinal heterogenous enhancing mass measuring grossly 7.3 x 6.5 cm . Previously measures 6.1 x 5.[address] There is extension into the medial aspect of the righ t upper lobe. Additionally this extends into the right pulmonary hilum. There is abutment of the thor acic aorta with encasement of the right main pulmonary artery with mild narrowing. There is encasemen t of the right upper lobe and middle lobe pulmonary artery branches. Additional abutment of the dista l esophagus and SVC. Additional right hilar adenopathy measuring up to 1.8 cm. Enlarging left hilar l ymph node measuring up to 1.6 cm suspicious for metastasis now. Musculoskeletal: No acute osseous abnormalities. Multilevel degenerative disc disease. No aggressive osseous lesion. Soft Tissues: Unremarkable. Lower neck: No significant findings. Upper Abdomen: Small hiatal hernia. Circumferential wall thickening of the distal esophagus with cortes cent subcentimeter paraesophageal lymph nodes. Liver is diffusely low-density consistent with steatos is. The gallbladder is surgically absent. Couple of scattered splenic flexure colonic diverticula. IMPRESSION: 1. No evidence of pulmonary embolism. 2. Increased size of mediastinal mass extending into the right hilum and suprahilar region consistent with malignancy. This abuts and encases the airways and pulmonary arteries as described above. There appears to be invasion into the SVC without complete obstruction. Additional right metastatic hilar adenopathy. Suspicious left hilar lymph node. 3. Right upper lobe interlobular septal thickening and groundglass opacities adjacent to the mass. Ma y be sequelae of vascular/airway involvement versus superimposed infectious process. 4. Distal esophageal circumferential wall thickening and small hilar hernia. Correlate for esophagiti s/GERD. [facility], , 08/20/2024 11:49 AM
[2024-08-20 13:22] VITALS: BP 98/56; PULSE 76; RESP 24; TEMP 98.4
== END 2024-08-20 13:24 | disposition home or self-care (01) ==
LOC: EC 08:43
DX: C34.90 Malignant neoplasm of unspecified part of unspecified bronchus or lung (principal); R04.2 Hemoptysis; R00.0 Tachycardia, unspecified; Z91.018 Allergy to other foods; Z88.6 Allergy status to analgesic agent; Z91.09 Other allergy status, other than to drugs and biological substances; Z87.891 Personal history of nicotine dependence
CPT/HCPCS: 36415; 94640 ×2; 93005; 85379; 80053; 83605; 83735; 84484; 85025; 85610; 85730; 71046; 71275; 99285; 96374; 96361 ×3; J2060; Q9967

== ENCOUNTER 2024-08-31 13:47 | Inpatient (IN) | payer OTHER ==
--- NOTE | 2024-08-31 14:07 | ED ---
Nausea/Vomiting/Diarrhea HPI <Alesia Choi - Last Filed: 08/31/24 14:05> <Lamberto Abraham - Last Filed: 08/31/24 17:55> - General Stated complaint: lethargy Time Seen by Provider: 08/31/24 14:05 - History of Present Illness Initial comments: Quick [id number] female with history of active squamous cell carcinoma of the esophagus presenting for weakness. States she is currently undergoing chemotherapy and radiation however has become very weak and told by her oncologist to come to the ER for further evaluation. Patient is having a difficult time tolerating orals due to the esophageal mass. Endorses nausea and vomiting. (Alesia Choi) Is a 63-year-old female who presents to the emergency department with a history of squamous cell carcinoma she states it is pressing up against the esophagus and her airway. Patient states she was post get chemo today but she was too weak so they sent her in here to get a PEG tube. Patient states she does feel very weak and is unable to eat or drink at this point. Patient denies any chest pain or palpitations. Patient [place] any difficulty breathing shortness of breath. Patient denies any recent fever chills or cough. Patient did not get chemo today (Lamberto Abraham) - Related Data Home Medications Medication Instructions Recorded Confirmed Albuterol Inhaler [Ventolin Hfa 2 puff INHALATION RT-Q4H PRN 02/04/24 08/31/24 Inhaler] Amitriptyline HCl 25 mg PO HS 02/04/24 08/31/24 Cetirizine HCl 10 mg PO HS 02/04/24 08/31/24 Omeprazole 20 mg PO DAILY 02/04/24 08/31/24 traMADol HCL 50 mg PO TID PRN 02/04/24 08/31/24 Ipratropium-Albuterol Nebulize 3 ml INHALATION RT-QID PRN 07/13/24 08/31/24 [Duoneb 0.5 mg-3 mg/3 ml Soln] L.acidoph,Paracasei, B.lactis 1 cap PO HS 07/13/24 08/31/24 [Probiotic] Umeclidinium Brm/Vilanterol Tr 1 puff INHALATION RT-DAILY 07/13/24 08/31/24 [Anoro Ellipta 62.5-25 Mcg INH] Benzonatate [Tessalon Perle] 200 mg PO TID PRN 08/15/24 08/31/24 Prochlorperazine [Compazine] 10 mg PO Q6H PRN 08/15/24 08/31/24 ondansetron HCL [Zofran] 8 mg PO Q8HR PRN 08/15/24 08/31/24 ALPRAZolam [Xanax] 0.5 mg PO BID PRN 08/31/24 08/31/24 Ondansetron Odt [Zofran Odt] 8 mg PO Q8HR PRN 08/31/24 08/31/24 oxyCODONE-APAP 5-325MG [Percocet 1 tab PO Q6HR PRN 08/31/24 08/31/24 5-325 mg] Previous Rx's Medication Instructions Recorded predniSONE 50 mg PO DAILY #10 tab 07/15/24 Allergies Allergy/AdvReac Type Severity Reaction Status Date / Time lactose Allergy Unknown Verified 08/31/24 17:08 mold Allergy Unknown Verified 08/31/24 17:08 nickel Allergy Rash/Hives Verified 08/31/24 17:08 NSAIDS (Non-Steroidal AdvReac ACID REFLUX Verified 08/31/24 17:08 Anti-Inflamma dust Allergy Unknown Uncoded 08/31/24 17:08 Review of Systems ROS Other: All systems not noted in ROS Statement are negative. <Alesia Choi - Last Filed: 08/31/24 14:05> ROS Other: All systems not noted in ROS Statement are negative. <Lamberto Abraham - Last Filed: 08/31/24 17:55> ROS Statement: Those systems with pertinent positive or pertinent negative responses have been documented in the HPI. Past Medical History Past Medical History: Cancer, COPD, GERD/Reflux, Hearing Disorder / Deafness, Pneumonia, Skin Disorder Additional Past Medical History / Comment(s): psoriatic arthritis, right ear maya f, psoriasis hands feet. squmaous cell chest History of Any Multi-Drug Resistant Organisms: None Reported Past Surgical History: Back Surgery, Breast Surgery, Cholecystectomy, Joint Replacement, Orthopedic Surgery, Tubal Ligation Additional Past Surgical History / Comment(s): R hip replacement January 2024. 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, arthroscopy bilateral knees, left foot bone spur, ablation to back , injections to back, breast bx left, titanium tag, egd ,colonoscopy Past Anesthesia/Blood Transfusion Reactions: No Reported Reaction Additional Past Anesthesia/Blood Transfusion Reaction / Comment(s): no blood transfusion Past Psychological History: ADD/ADHD, Anxiety Smoking Status: Former smoker Past Alcohol Use History: Rare Past Drug Use History: None Reported <Alesia Choi - Last Filed: 08/31/24 14:05> General Exam <Alesia Choi - Last Filed: 08/31/24 14:05> <Lamberto Abraham - Last Filed: 08/31/24 17:55> - General Exam Comments Initial Comments: Visual Physical Exam General: Well-appearing, nontoxic, no acute distress. Head: Normocephalic, atraumatic Eyes: PERRLA, EOMI ENT: Airway patent Chest: Nonlabored breathing Skin: No visual rash, normal skin tone Neuro: Alert and oriented 3 Musculoskeletal: No gross abnormalities (Alesia Choi) GENERAL: Patient is well-developed and well-nourished. Patient is nontoxic and well- hydrated and is in mild distress. ENT: Neck is soft and supple. No significant lymphadenopathy is noted. Oropharynx is clear. Moist mucous membranes. Neck has full range of motion without eliciting any pain. EYES: The sclera were anicteric and conjunctiva were pink and moist. Extraocular movements were intact and pupils were equal round and reactive to light. Eyelids were unremarkable. PULMONARY: Unlabored respirations. Good breath sounds bilaterally. No audible rales rhonchi or wheezing was noted. CARDIOVASCULAR: Irregular heartbeat at 150 beats a minute ABDOMEN: Soft and nontender with normal bowel sounds. No palpable organomegaly was noted. There is no palpable pulsatile mass. SKIN: Skin is clear with no lesions or rashes and otherwise unremarkable. NEUROLOGIC: Patient is alert and oriented x3. Cranial nerves II through XII are grossly intact. Motor and sensory are also intact. Normal speech, volume and content. Symmetrical smile. MUSCULOSKELETAL: Normal extremities with adequate strength and full range of motion. No lower extremity swelling or edema. No calf tenderness. LYMPHATICS: No significant lymphadenopathy is noted PSYCHIATRIC: Normal psychiatric evaluation. (Lamberto Abraham) Course Vital Signs 08/31/24 08/31/24 14:07 15:41 Temperature 98 F Pulse Rate 92 150 H Respiratory 18 Rate Blood Pressure 91/59 O2 Sat by Pulse 100 Oximetry Medical Decision Making <JimboAlesia - Last Filed: 08/31/24 14:05> - Lab Data Result diagrams: 08/31/24 15:44 08/31/24 15:44 <Lamberto Abraham - Last Filed: 08/31/24 17:55> - Medical Decision Making I completed the quick note portion of this chart signed Alesia Choi PA-C (Alesia Choi) EKG is interpreted by myself and EKG shows atrial fibrillation with rapid ventricular response at 154 bpm QRS of 74 QT interval is 251 QTc is 338. Patient's EKG shows no ST segment elevation or depression. Was pt. sent in by a medical professional or institution (ANTHONY Saenz, AIRCRA[employer] RECOVERY TECHNICIAN, urgent care, hospital, or care home...) When possible be specific @ -No Did you speak to anyone other than the patient for history (EMS, parent, family, police, friend...)? What history was obtained from this source @ -No Did you review nursing and triage notes (agree or disagree)? Why? @ -I reviewed and agree with nursing and triage notes Were old charts reviewed (outside hosp., previous admission, EMS record, old EKG, old radiological studies, urgent care reports/EKG's, care home records)? Report findings @ -No old charts were reviewed Differential Diagnosis? @ -Differential Palpitations Ventricular arrhythmias, atrial arrhythmias, myocardial infarction, anemia, thyrotoxicosis, electrolyte imbalance, hypokalemia, pulmonary embolism, pulmonary disease, drugs, alcohol, anxiety, stress.... This is not meant to be an all-inclusive list. Dysphagia, esophageal mass, EKG interpreted by me (3pts min.). @ -As above X-rays interpreted by me (1pt min.). @ -None done CT interpreted by me (1pt min.). @ -None done U/S interpreted by me (1pt. min.). @ -None done What testing was considered but not performed or refused? (CT, X-rays, U/S, labs)? Why? @ -None What meds were considered but not given or refused? Why? @ -None Did you discuss the management of the patient with other professionals (professionals i.e. , PA, [employer] RECOVERY TECHNICIAN, lab, RT, psych nurse, social work program coordinator, energy efficient site manager, teacher, animal park code enforcement officer, immigration case manager)? Give summary @ -I spoke with sound physicians he agreed to admit the patient admit the patient wrote admitting orders patient was placed on heparin secondary to new onset A-fib with rapid ventricular response. Patient also was given a bolus of Cardizem and on placed on a Cardizem drip. Patient was also given a liter of fluid Was smoking cessation discussed for >3mins.? @ -No Was critical care preformed (if so, how long)? @ -35 minutes Were there social determinants of health that impacted care today? How? (Homelessness, low income, unemployed, alcoholism, drug addiction, transportation, low edu. Level, literacy, decrease access to med. care, care home, rehab)? @ -No Was there de-escalation of care discussed even if they declined (Discuss DNR or withdrawal of care, Hospice)? DNR status @ -No What co-morbidities impacted this encounter? (DM, HTN, Smoking, COPD, CAD, Cancer, CVA, ARF, Chemo, Hep., AIDS, mental health diagnosis, sleep apnea, morbid obesity)? @ -None Was patient admitted / discharged? Hospital course, mention meds given and route, prescriptions, significant lab abnormalities, going to OR and other pertinent info. @ -Patient's hemoglobin was low so repeat CBCs will be done. Patient also had A-fib and Cardizem will be continued. Patient is experiencing dysphagia so patient will have a consult for cardiology for A-fib and surgery for PEG tube Undiagnosed new problem with uncertain prognosis? @ -No Drug Therapy requiring intensive monitoring for toxicity (Heparin, Nitro, Insulin, Cardizem)? @ -No Were any procedures done? @ -No Diagnosis/symptom? @ -Anemia Acute, or Chronic, or Acute on Chronic? @ -Acute Uncomplicated (without systemic symptoms) or Complicated (systemic symptoms)? @ -Complicated Side effects of treatment? @ -No Exacerbation, Progression, or Severe Exacerbation? @ -No Poses a threat to life or bodily function? How? (Chest pain, USA, MS, pneumonia, PE, COPD, DKA, ARF, appy, cholecystitis, CVA, Diverticulitis, Homicidal, Suicidal, threat to staff... and all critical care pts) @ -Yes this can lead to hypoxia and endorgan dysfunction Diagnosis/symptom? @ -A-fib with rapid ventricular response Acute, or Chronic, or Acute on Chronic? @ -Acute Uncomplicated (without systemic symptoms) or Complicated (systemic symptoms)? @ -Complicated Side effects of treatment? @ -None Exacerbation, Progression, or Severe Exacerbation] @ -No Poses a threat to life or bodily function? @ -Yes this can lead to blood clots and stroke Diagnosis/symptom? @ -Dysphagia Acute, or Chronic, or Acute on Chronic? @ -Acute Uncomplicated (without systemic symptoms) or Complicated (systemic symptoms)? @ -Comp Side effects of treatment? @ -None Exacerbation, Progression, or Severe Exacerbation] @ -No Poses a threat to life or bodily function? @ -Yes this can lead to malnutrition (Lamberto Abraham) - Lab Data Lab Results 08/31/24 08/31/24 08/31/24 Range/Units 15:44 15:44 15:44 WBC 8.3 (3.8-10.6) k/uL RBC 2.87 L (3.80-5.40) m/uL Hgb 8.3 L D (11.4-16.0) gm/dL Hct 26.2 L (34.0-46.0) % MCV 91.3 (80.0-100.0) fL MCH 29.0 (25.0-35.0) pg MCHC 31.7 (31.0-37.0) g/dL RDW 16.7 H (11.5-15.5) % Plt Count 169 (150-450) k/uL MPV 8.9 Neutrophils % 85 % Lymphocytes % 9 % Monocytes % 5 % Eosinophils % 1 % Basophils % 0 % Neutrophils # 7.1 (1.3-7.7) k/uL Lymphocytes # 0.7 L (1.0-4.8) k/uL Monocytes # 0.4 (0-1.0) k/uL Eosinophils # 0.0 (0-0.7) k/uL Basophils # 0.0 (0-0.2) k/uL Anisocytosis Slight PT 13.2 H (10.0-12.5) sec INR 1.2 H (<1.2) APTT 20.0 L (22.0-30.0) sec Sodium 138 (137-145) mmol/L Potassium 4.2 (3.5-5.1) mmol/L Chloride 103 (98-107) mmol/L Carbon Dioxide 27 (22-30) mmol/L Anion Gap 8 mmol/L BUN 17 (7-17) mg/dL Creatinine 0.92 (0.52-1.04) mg/dL Est GFR (CKD-EPI)AfAm 76 (>60 ml/min/1.73 sqM) Est GFR (CKD-EPI)NonAf 66 (>60 ml/min/1.73 sqM) Glucose 100 H (74-99) mg/dL Plasma Lactic Acid Jeremy (0.7-2.0) mmol/L Calcium 8.0 L (8.4-10.2) mg/dL Magnesium 1.7 (1.6-2.3) mg/dL Total Bilirubin 0.7 (0.2-1.3) mg/dL AST 19 (14-36) U/L ALT 30 (4-34) U/L Alkaline Phosphatase 95 (38-126) U/L Total Protein 5.4 L (6.3-8.2) g/dL Albumin 2.9 L (3.5-5.0) g/dL 08/31/24 Range/Units 15:44 WBC (3.8-10.6) k/uL RBC (3.80-5.40) m/uL Hgb (11.4-16.0) gm/dL Hct (34.0-46.0) % MCV (80.0-100.0) fL MCH (25.0-35.0) pg MCHC (31.0-37.0) g/dL RDW (11.5-15.5) % Plt Count (150-450) k/uL MPV Neutrophils % % Lymphocytes % % Monocytes % % Eosinophils % % Basophils % % Neutrophils # (1.3-7.7) k/uL Lymphocytes # (1.0-4.8) k/uL Monocytes # (0-1.0) k/uL Eosinophils # (0-0.7) k/uL Basophils # (0-0.2) k/uL Anisocytosis PT (10.0-12.5) sec INR (<1.2) APTT (22.0-30.0) sec Sodium (137-145) mmol/L Potassium (3.5-5.1) mmol/L Chloride (98-107) mmol/L Carbon Dioxide (22-30) mmol/L Anion Gap mmol/L BUN (7-17) mg/dL Creatinine (0.52-1.04) mg/dL Est GFR (CKD-EPI)AfAm (>60 ml/min/1.73 sqM) Est GFR (CKD-EPI)NonAf (>60 ml/min/1.73 sqM) Glucose (74-99) mg/dL Plasma Lactic Acid Jeremy 1.4 (0.7-2.0) mmol/L Calcium (8.4-10.2) mg/dL Magnesium (1.6-2.3) mg/dL Total Bilirubin (0.2-1.3) mg/dL AST (14-36) U/L ALT (4-34) U/L Alkaline Phosphatase (38-126) U/L Total Protein (6.3-8.2) g/dL Albumin (3.5-5.0) g/dL Disposition <Alesia Choi - Last Filed: 08/31/24 14:05> Time of Disposition: 17:55 <Lamberto Abraham - Last Filed: 08/31/24 17:55> Clinical Impression: Atrial fibrillation with rapid ventricular response, Anemia, Dysphagia Disposition: ADMITTED IP TO THIS HOSP Referrals: Sosa Galvin MD [Primary Care Provider] - 1-2 days
[2024-08-31] MEDS: ONDANSETRON 4 MG/2 ML VIAL IVP STA (16:39)
[2024-08-31] MEDS: DILTIAZEM DRIP BOLUS FROM BAG 1 MG SOLN IV ONE ×2 (16:42→18:35)
[2024-08-31] MEDS: DILTIAZEM 125 MG in SODIUM CHLORIDE 0.9% 100 ML IV SCH (16:46)
[2024-08-31] MEDS: SODIUM CHLORIDE 0.9% 1,000 ML IV ONE (16:47)
[2024-08-31] MEDS: MAGNESIUM SULFATE-D5W PMX 1 GM in DEXTROSE/WATER 1 100ML.BAG IVPB SCH (16:47)
[2024-08-31] MEDS: HEPARIN SOD,PORK IN 0.45% NACL 25,000 UNIT in 0.45% NACL 1 250ML.BAG IV SCH (16:52)
[2024-08-31] MEDS: HEPARIN SODIUM 1,000 UN/ML (10ML VL) IV ONE (16:54)
[2024-08-31 17:00] LABS: ALT 30 U/L (4-34); AST 19 U/L (14-36); African American GFR (CKD) 76 (>60 ml/min/1.73 sqM); Albumin 2.9 g/dL (3.5-5.0); Alkaline Phosphatase 95 U/L (38-126); Anion Gap 8 mmol/L; Anisocytosis Slight; Basophils % (A) 0 %; Blood Urea Nitrogen 17 mg/dL (7-17); Carbon Dioxide 27 mmol/L (22-30); Chloride 103 mmol/L (98-107); Eosinophils % (A) 1 %; Glucose 100 mg/dL (74-99); HCT 26.2 % (34.0-46.0); Lymphocytes # (A) 0.7 k/uL (1.0-4.8); Lymphocytes % (A) 9 %; MCHC 31.7 g/dL (31.0-37.0); MCV 91.3 fL (80.0-100.0); Magnesium 1.7 mg/dL (1.6-2.3); Mean Platelet Volume 8.9; Monocytes # (A) 0.4 k/uL (0-1.0); Monocytes % (A) 5 %; Neutrophils # (A) 7.1 k/uL (1.3-7.7); Neutrophils % (A) 85 %; Non-African American GFR(CKD) 66 (>60 ml/min/1.73 sqM); Platelet Count 169 k/uL (150-450); Potassium 4.2 mmol/L (3.5-5.1); RBC 2.87 m/uL (3.80-5.40); RDW 16.7 % (11.5-15.5); Sodium 138 mmol/L (137-145); Total Bilirubin 0.7 mg/dL (0.2-1.3); Total Protein 5.4 g/dL (6.3-8.2); WBC 8.3 k/uL (3.8-10.6)
[2024-08-31 17:03] LABS: INR 1.2 (<1.2); Prothrombin Time 13.2 sec (10.0-12.5)
[2024-08-31 17:04] LABS: HGB 8.3 gm/dL (11.4-16.0)
[2024-08-31] MEDS ORDERED: NITROGLYCERIN SL TABS 0.4 MG TAB SUBLINGUAL PRN (17:59)
--- NOTE | 2024-08-31 18:24 | XR ---
EXAMINATION TYPE: XR chest 2V DATE OF EXAM: 08/31/2024 6:20 PM COMPARISON: Chest radiographs from 08/20/2024, CTA chest 08/20/2024 TECHNIQUE: XR chest 2V Frontal and lateral views of the chest. CLINICAL INDICATION:Female, 63 years old with history of Difficulty breathing ; FINDINGS: Patient is rotated which limits evaluation. Lungs/Pleura: There is flattening of the diaphragm with increased lucency of the lungs. No evidence o f pneumothorax or pleural effusion. Right mid lung linear opacity is new from prior exam. Pulmonary vascularity: Unremarkable. Heart/mediastinum: Cardiomediastinal silhouette is prominent in size. No new mediastinal mass is bet ter appreciated on CT. Musculoskeletal: Multiple level degenerative disc disease changes seen throughout the spine. Other findings: None Lines/Tubes: Izetve-z-Obcy projecting over the right hemithorax with distal tip projecting over the right atrium IMPRESSION: 1. Development of right midlung linear atelectasis. 2. Known mediastinal mass is better appreciated on recent CTA. 3. Right chest wall Mediport catheter with distal tip terminating in the right atrium. 4. COPD changes. [facility], , 08/31/2024 6:22 PM
[2024-08-31 19:12] LABS: Anisocytosis Slight; Basophils % (A) 0 %; Eosinophils # (A) 0.1 k/uL (0-0.7); Eosinophils % (A) 1 %; HCT 26.3 % (34.0-46.0); HGB 8.3 gm/dL (11.4-16.0); Hypochromasia Moderate; Lymphocytes # (A) 0.8 k/uL (1.0-4.8); Lymphocytes % (A) 11 %; MCH 29.9 pg (25.0-35.0); MCHC 31.5 g/dL (31.0-37.0); Mean Platelet Volume 9.4; Monocytes # (A) 0.4 k/uL (0-1.0); Monocytes % (A) 5 %; Neutrophils # (A) 6.4 k/uL (1.3-7.7); Neutrophils % (A) 82 %; Platelet Count 164 k/uL (150-450); RBC 2.77 m/uL (3.80-5.40); RDW 16.7 % (11.5-15.5); WBC 7.8 k/uL (3.8-10.6)
[2024-08-31] MEDS: SODIUM CHLORIDE 0.9% 1,000 ML IV SCH (19:31)
[2024-08-31] MEDS: MORPHINE SULFATE 2 MG/ML SYRINGE IVP PRN (23:53)
[2024-08-31] MEDS: PROCHLORPERAZINE INJ 10 MG/2 ML VIAL IVP PRN (23:54)
--- NOTE | 2024-09-01 02:51 | P.HPIM ---
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 Wooten in [facility] and Dr. Robledo in [place], as well as history of COPD on 3 L home oxygen, presented to the emergency department today after she was encouraged to come here by her oncologist. Most of the patient history is provided by the , who is at bedside. She was supposed to receive her third round of chemo today however she has been very weak and was advised to come here and potentially get a PEG tube placed. She has been having increased difficulty swallowing and now is barely able to swallow liquids. She has also increased her oxygen requirements over the last week. She used to be on 2 L but for the last week has been requiring 3 L. She has been "coughing up bile" with an episode of hemoptysis about a week or two ago post radiation. The hemoptysis has resolved. Patient denying recent fever, abdominal pain, chest pain. She reports chills, severe fatigue, cough productive of a green-omar sputum (reported as "bile"), chest pressure, severe nausea, one episode of vomiting yesterday, dyspnea. Patient reports that IV Compazine is only thing that helps with her nausea. After the patient's left the room, the patient expressed a desire to be on hospice and to be a DNR/DNI stating that she wanted to fight at first but no longer has the energy to. Initial vitals: T 98 F, VA 92 bpm, RR 18, BP 91/59, 97% on 3L [place] oxygen Initial labs: WBC 8.3, RBC 2.87, hemoglobin 8.3, hematocrit 26.2, sodium 138, potassium 4.2, chloride 103, CO2 27, BUN 17, creatinine 0.92, calcium 8, total protein 5.4, albumin 2.9, troponin x 1 < 0.012 Initial EKG: Atrial fibrillation with rapid ventricular rate at 154 bpm, QTc 338 ms, no evidence of ST segment elevation or depression Initial chest x-ray: Development of right midlung linear atelectasis ED documentation reviewed. She was given: Cardizem bolus 5 mg IV x 2, heparin 4000 units IV x 1, 0.9% saline bolus 1 L x 1; started on Cardizem gtt. 5 mg/h, heparin GTT 12 units/kg/h, 0.9% saline 75 cc/h Review of systems: Pertinent positives and negatives as discussed in HPI, a complete review of systems was performed and all other systems are negative. Social history: Tobacco: Quit June 2024; 1 pack/day for 45 years Alcohol: None reported Recreational drugs: None reported Travel: None reported Sick contacts: None reported Physical examination: Vital signs reviewed General: No acute distress, ill-appearing Derm: Warm, dry, intact Head: Atraumatic, normocephalic, symmetric Eyes: EOMI, anicteric scelra Cardiovascular: S1-S2 regular, no murmur Lungs: CTA bilateral, no wheezes, no rhonchi, no rales, no accessory muscle use Abdominal: Soft, non-tender, nondistended Extremities: No cyanosis, clubbing, or pedal edema, dorsalis pedis pulses 2+ bilaterally Neuro: Alert, oriented x 4, gross neurological examination did not reveal any focal deficits. 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 Wooten in [facility] and Dr. Robledo in [place], as well as history of COPD on 3 L home oxygen admitted for new onset atrial fibrillation with rapid ventricular rate. Active #. New onset A-fib with RVR Continue with Cardizem gtt 5 mg/h Cardiology consulted Continue with telemetry monitoring Check TSH Obtain echo Continue with heparin gtt #. Intractable nausea Start Compazine 5 mg IVP every 3 hours as needed as patient is unable to tolerate PO medications #. Normocytic Anemia, gradually worsening over past several weeks Monitor CBC Transfuse for hemoglobin <7 Check anemia panel including iron panel, B12, folate levels, reticulocyte count #. Hypocalcemia Corrected calcium 8.9 Continue to monitor #. Hypoproteinemia and hypoalbuminemia, likely due to nutritional deficiency Patient unable to tolerate oral intake Consult surgery for possible PEG tube #. Squamous cell carcinoma of the mediastinum stage IIIa Consult oncology Consult hospice Chronic #. COPD Continue with oxygen supplementation to maintain O2 saturation >88% Continue with DuoNebs Continue with prednisone 50 mg daily DVT prophylaxis: Heparin GTT GI prophylaxis: Not indicated at this time The patient is admitted with an anticipated less than 2 midnight stay for evaluation of new onset atrial fibrillation with rapid ventricular rate. CODE STATUS: No code Discussed goals of care with patient. She expresses that she "has no energy left to fight" and that she is "just tired." She feels that her quality of life right now is poor and that she does not have a meaningful chance of recovery. Further discussed the caveats of CPR and intubation with the option for other interventions including, but not limited to, mechanical ventilation, pressors, and dialysis. Patient verbalizes an understanding and declines intervention. She expresses her wishes to be a NO CODE. Past Medical History Past Medical History: Cancer, COPD, GERD/Reflux, Hearing Disorder / Deafness, Pneumonia, Skin Disorder Additional Past Medical History / Comment(s): psoriatic arthritis, right ear deaf, psoriasis hands feet. squmaous cell chest History of Any Multi-Drug Resistant Organisms: None Reported Past Surgical History: Back Surgery, Breast Surgery, Cholecystectomy, Joint Replacement, Orthopedic Surgery, Tubal Ligation Additional Past Surgical History / Comment(s): R hip replacement January 2024. 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, arthroscopy bilateral knees, left foot bone spur, ablation to back , injections to back, breast bx left, titanium tag, egd ,colonoscopy Past Anesthesia/Blood Transfusion Reactions: No Reported Reaction Additional Past Anesthesia/Blood Transfusion Reaction / Comment(s): no blood transfusion Past Psychological History: ADD/ADHD, Anxiety Smoking Status: Former smoker Past Alcohol Use History: Rare Past Drug Use History: None Reported Medications and Allergies Home Medications Medication Instructions Recorded Confirmed Type Albuterol Inhaler [Ventolin Hfa 2 puff INHALATION RT-Q4H PRN 02/04/24 08/31/24 History Inhaler] Amitriptyline HCl 25 mg PO HS 02/04/24 08/31/24 History Cetirizine HCl 10 mg PO HS 02/04/24 08/31/24 History Omeprazole 20 mg PO DAILY 02/04/24 08/31/24 History traMADol HCL 50 mg PO TID PRN 02/04/24 08/31/24 History Ipratropium-Albuterol Nebulize 3 ml INHALATION RT-QID PRN 07/13/24 08/31/24 History [Duoneb 0.5 mg-3 mg/3 ml Soln] L.acidoph,Paracasei, B.lactis 1 cap PO HS 07/13/24 08/31/24 History [Probiotic] Umeclidinium Brm/Vilanterol Tr 1 puff INHALATION RT-DAILY 07/13/24 08/31/24 History [Anoro Ellipta 62.5-25 Mcg INH] predniSONE 50 mg PO DAILY #10 tab 07/15/24 08/31/24 Rx Benzonatate [Tessalon Perle] 200 mg PO TID PRN 08/15/24 08/31/24 History Prochlorperazine [Compazine] 10 mg PO Q6H PRN 08/15/24 08/31/24 History ondansetron HCL [Zofran] 8 mg PO Q8HR PRN 08/15/24 08/31/24 History ALPRAZolam [Xanax] 0.5 mg PO BID PRN 08/31/24 08/31/24 History Ondansetron Odt [Zofran Odt] 8 mg PO Q8HR PRN 08/31/24 08/31/24 History oxyCODONE-APAP 5-325MG [Percocet 1 tab PO Q6HR PRN 08/31/24 08/31/24 History 5-325 mg] Allergies Allergy/AdvReac Type Severity Reaction Status Date / Time lactose Allergy Unknown Verified 08/31/24 17:08 mold Allergy Unknown Verified 08/31/24 17:08 nickel Allergy Rash/Hives Verified 08/31/24 17:08 NSAIDS (Non-Steroidal AdvReac ACID REFLUX Verified 08/31/24 17:08 Anti-Inflamma dust Allergy Unknown Uncoded 08/31/24 17:08 Physical Exam Vitals: Vital Signs Temp Pulse Resp BP Pulse Ox 08/31/24 15:41 150 H 08/31/24 14:07 98 F 92 18 91/59 100 Intake and Output 08/31/24 08/31/24 08/31/24 06:59 14:59 22:59 Intake Total 9.083 Balance 9.083 Intake: Intake, IV Titration 9.083 Amount Diltiazem 125 mg In 9.083 Sodium Chloride 0.9% 100 ml @ 5 MG/HR 5 mls/hr IV .Q24H [facility] Rx#:[id number] Other: Weight 75.296 kg Results CBC & Chem 7: 08/31/24 18:47 08/31/24 15:44 Labs: Abnormal Lab Results - Last 24 Hours (Table) 08/31/24 08/31/24 08/31/24 Range/Units 15:44 15:44 15:44 RBC 2.87 L (3.80-5.40) m/uL Hgb 8.3 L D (11.4-16.0) gm/dL Hct 26.2 L (34.0-46.0) % RDW 16.7 H (11.5-15.5) % Lymphocytes # 0.7 L (1.0-4.8) k/uL PT 13.2 H (10.0-12.5) sec INR 1.2 H (<1.2) APTT 20.0 L (22.0-30.0) sec Glucose 100 H (74-99) mg/dL Calcium 8.0 L (8.4-10.2) mg/dL Total Protein 5.4 L (6.3-8.2) g/dL Albumin 2.9 L (3.5-5.0) g/dL 08/31/24 Range/Units 18:47 RBC 2.77 L (3.80-5.40) m/uL Hgb 8.3 L (11.4-16.0) gm/dL Hct 26.3 L (34.0-46.0) % RDW 16.7 H (11.5-15.5) % Lymphocytes # 0.8 L (1.0-4.8) k/uL PT (10.0-12.5) sec INR (<1.2) APTT (22.0-30.0) sec Glucose (74-99) mg/dL Calcium (8.4-10.2) mg/dL Total Protein (6.3-8.2) g/dL Albumin (3.5-5.0) g/dL Thrombosis Risk Factor Assmnt - DVT/VTE Prophylaxis DVT/VTE Prophylaxis: Pharmacologic Prophylaxis ordered - Choose All That Apply Each Factor Represents 1 point: Abnormal pulmonary function (COPD), Obesity (BMI >25) Each Risk Factor Represents 2 Points: Age 61-74 years, Malignancy Thrombosis Risk Factor Assessment Total Risk Factor Score: 6 Thrombosis Risk Factor Assessment Level: High Risk
[2024-09-01 07:55] LABS: Anisocytosis Slight; Basophils % (A) 0 %; Eosinophils % (A) 0 %; HCT 25.5 % (34.0-46.0); HGB 8.1 gm/dL (11.4-16.0); Hypochromasia Moderate; Lymphocytes # (A) 0.8 k/uL (1.0-4.8); Lymphocytes % (A) 10 %; MCH 29.5 pg (25.0-35.0); MCHC 31.7 g/dL (31.0-37.0); MCV 93.1 fL (80.0-100.0); Mean Platelet Volume 8.5; Monocytes # (A) 0.5 k/uL (0-1.0); Monocytes % (A) 6 %; Neutrophils # (A) 6.8 k/uL (1.3-7.7); Neutrophils % (A) 82 %; Platelet Count 188 k/uL (150-450); RBC 2.74 m/uL (3.80-5.40); RDW 16.8 % (11.5-15.5); WBC 8.3 k/uL (3.8-10.6)
[2024-09-01] MEDS: DILTIAZEM 125 MG in SODIUM CHLORIDE 0.9% 100 ML IV SCH (09:08)
[2024-09-01] MEDS: METOPROLOL TARTRATE 25 MG TAB PO SCH (09:15)
[2024-09-01] MEDS: ASPIRIN 325 MG TAB PO SCH (09:15)
[2024-09-01] MEDS: MORPHINE SULFATE 2 MG/ML SYRINGE IVP PRN (09:24)
[2024-09-01] MEDS: FUROSEMIDE 10 MG/ML 4 ML VIAL IV STA (09:24)
[2024-09-01 10:31] LABS: Chol/HDL Ratio 3.71 Ratio; LDL Cholesterol,Calculated 57.4 mg/dL (0.0-131.0)
--- NOTE | 2024-09-01 11:34 | P.GSCN ---
History of Present Illness Consult date: 09/01/24 History of present illness: CHIEF COMPLAINT: weakness HISTORY OF PRESENT ILLNESS: this is a 63-year-old female with history of squamous cell carcinoma of the esophagus presenting the hospital due to weakness. Per chart patient was supposed to have chemotherapy yesterday but was too weak and oncology recommended that patient presents to the hospital for PEG tube placement. surgical service was consulted for possible PEG tube placement. Patient also has evidence of A. fib RVR and on IV heparin drip. PAST MEDICAL HISTORY: See below PAST SURGICAL HISTORY: See below MEDICATIONS: See below ALLERGIES: See below SOCIAL HISTORY: No illicit drug use. REVIEW OF SYSTEMS: CONSTITUTIONAL: Denies fever or chills. HEENT: Denies blurred vision, vision changes, or eye pain. Denies hemoptysis CARDIOVASCULAR: Denies chest pain or pressure. RESPIRATORY: No shortness of breath. GASTROINTESTINAL: See HPI for pertinent findings HEMATOLOGIC: Denies bleeding disorders. GENITOURINARY: Denies any blood in urine or increased urinary frequency. SKIN: Denies pruitis. Denies rash. PHYSICAL EXAM: VITAL SIGNS: Reviewed GENERAL: in no acute distress. HEENT: eyelids swollen ABDOMEN: Soft. Nondistended. nontender NEUROLOGIC: Alert and oriented. Cranial nerves II through XII grossly intact. LABORATORY DATA: WBC 8.3 Hgb 8.1 platelets 188 IMAGING: ASSESSMENT: 1. Squamous cell carcinoma of the esophagus PLAN: -Patient is requesting hospice. She is not interested in any procedures. -Medicine service has placed a consult for hospice Physician Workshop Manager note has been reviewed by physician. Signing provider agrees with the documented findings, assessment, and plan of care. Past Medical History Past Medical History: Cancer, COPD, GERD/Reflux, Hearing Disorder / Deafness, Pneumonia, Skin Disorder Additional Past Medical History / Comment(s): psoriatic arthritis, right ear deaf, psoriasis hands feet. squmaous cell chest History of Any Multi-Drug Resistant Organisms: None Reported Past Surgical History: Back Surgery, Breast Surgery, Cholecystectomy, Joint Replacement, Orthopedic Surgery, Tubal Ligation Additional Past Surgical History / Comment(s): R hip replacement January 2024. 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, arthroscopy bilateral knees, left foot bone spur, ablation to back , injections to back, breast bx left, titanium tag, egd ,colonoscopy Past Anesthesia/Blood Transfusion Reactions: No Reported Reaction Additional Past Anesthesia/Blood Transfusion Reaction / Comm: no blood transfusion Past Psychological History: ADD/ADHD, Anxiety Smoking Status: Former smoker Past Alcohol Use History: Rare Past Drug Use History: None Reported Medications and Allergies Home Medications Medication Instructions Recorded Confirmed Type Albuterol Inhaler [Ventolin Hfa 2 puff INHALATION RT-Q4H PRN 02/04/24 08/31/24 History Inhaler] Amitriptyline HCl 25 mg PO HS 02/04/24 08/31/24 History Cetirizine HCl 10 mg PO HS 02/04/24 08/31/24 History Omeprazole 20 mg PO DAILY 02/04/24 08/31/24 History traMADol HCL 50 mg PO TID PRN 02/04/24 08/31/24 History Ipratropium-Albuterol Nebulize 3 ml INHALATION RT-QID PRN 07/13/24 08/31/24 History [Duoneb 0.5 mg-3 mg/3 ml Soln] L.acidoph,Paracasei, B.lactis 1 cap PO HS 07/13/24 08/31/24 History [Probiotic] Umeclidinium Brm/Vilanterol Tr 1 puff INHALATION RT-DAILY 07/13/24 08/31/24 History [Anoro Ellipta 62.5-25 Mcg INH] predniSONE 50 mg PO DAILY #10 tab 07/15/24 08/31/24 Rx Benzonatate [Tessalon Perle] 200 mg PO TID PRN 08/15/24 08/31/24 History Prochlorperazine [Compazine] 10 mg PO Q6H PRN 08/15/24 08/31/24 History ondansetron HCL [Zofran] 8 mg PO Q8HR PRN 08/15/24 08/31/24 History ALPRAZolam [Xanax] 0.5 mg PO BID PRN 08/31/24 08/31/24 History Ondansetron Odt [Zofran Odt] 8 mg PO Q8HR PRN 08/31/24 08/31/24 History oxyCODONE-APAP 5-325MG [Percocet 1 tab PO Q6HR PRN 08/31/24 08/31/24 History 5-325 mg] Allergies Allergy/AdvReac Type Severity Reaction Status Date / Time lactose Allergy Unknown Verified 08/31/24 17:08 mold Allergy Unknown Verified 08/31/24 17:08 nickel Allergy Rash/Hives Verified 08/31/24 17:08 NSAIDS (Non-Steroidal AdvReac ACID REFLUX Verified 08/31/24 17:08 Anti-Inflamma dust Allergy Unknown Uncoded 08/31/24 17:08 Surgical - Exam Osteopathic Statement: *. No significant issues noted on an osteopathic structural exam other than those noted in the History and Physical/Consult. Vital Signs Temp Pulse Resp BP Pulse Ox 98 F 92 18 91/59 100 08/31/24 14:07 08/31/24 14:07 08/31/24 14:07 08/31/24 14:07 08/31/24 14:07 Results - Labs 09/01/24 06:39 08/31/24 15:44 Abnormal Lab Results - Last 24 Hours (Table) 08/31/24 08/31/24 08/31/24 Range/Units 15:44 15:44 15:44 RBC 2.87 L (3.80-5.40) m/uL Hgb 8.3 L D (11.4-16.0) gm/dL Hct 26.2 L (34.0-46.0) % RDW 16.7 H (11.5-15.5) % Lymphocytes # 0.7 L (1.0-4.8) k/uL PT 13.2 H (10.0-12.5) sec INR 1.2 H (<1.2) APTT 20.0 L (22.0-30.0) sec Glucose 100 H (74-99) mg/dL Calcium 8.0 L (8.4-10.2) mg/dL Total Protein 5.4 L (6.3-8.2) g/dL Albumin 2.9 L (3.5-5.0) g/dL 08/31/24 09/01/24 Range/Units 18:47 06:39 RBC 2.77 L 2.74 L (3.80-5.40) m/uL Hgb 8.3 L 8.1 L (11.4-16.0) gm/dL Hct 26.3 L 25.5 L (34.0-46.0) % RDW 16.7 H 16.8 H (11.5-15.5) % Lymphocytes # 0.8 L 0.8 L (1.0-4.8) k/uL PT (10.0-12.5) sec INR (<1.2) APTT (22.0-30.0) sec Glucose (74-99) mg/dL Calcium (8.4-10.2) mg/dL Total Protein (6.3-8.2) g/dL Albumin (3.5-5.0) g/dL Diabetes panel 08/31/24 Range/Units 15:44 Sodium 138 (137-145) mmol/L Potassium 4.2 (3.5-5.1) mmol/L Chloride 103 (98-107) mmol/L Carbon Dioxide 27 (22-30) mmol/L BUN 17 (7-17) mg/dL Creatinine 0.92 (0.52-1.04) mg/dL Glucose 100 H (74-99) mg/dL Calcium 8.0 L (8.4-10.2) mg/dL AST 19 (14-36) U/L ALT 30 (4-34) U/L Alkaline Phosphatase 95 (38-126) U/L Total Protein 5.4 L (6.3-8.2) g/dL Albumin 2.9 L (3.5-5.0) g/dL Thyroid panel 09/01/24 Range/Units 06:39 TSH 0.645 (0.465-4.680) mIU/L Calcium panel 08/31/24 Range/Units 15:44 Calcium 8.0 L (8.4-10.2) mg/dL Albumin 2.9 L (3.5-5.0) g/dL Pituitary panel 08/31/24 09/01/24 Range/Units 15:44 06:39 Sodium 138 (137-145) mmol/L Potassium 4.2 (3.5-5.1) mmol/L Chloride 103 (98-107) mmol/L Carbon Dioxide 27 (22-30) mmol/L BUN 17 (7-17) mg/dL Creatinine 0.92 (0.52-1.04) mg/dL Glucose 100 H (74-99) mg/dL Calcium 8.0 L (8.4-10.2) mg/dL TSH 0.645 (0.465-4.680) mIU/L Adrenal panel 08/31/24 Range/Units 15:44 Sodium 138 (137-145) mmol/L Potassium 4.2 (3.5-5.1) mmol/L Chloride 103 (98-107) mmol/L Carbon Dioxide 27 (22-30) mmol/L BUN 17 (7-17) mg/dL Creatinine 0.92 (0.52-1.04) mg/dL Glucose 100 H (74-99) mg/dL Calcium 8.0 L (8.4-10.2) mg/dL Total Bilirubin 0.7 (0.2-1.3) mg/dL AST 19 (14-36) U/L ALT 30 (4-34) U/L Alkaline Phosphatase 95 (38-126) U/L Total Protein 5.4 L (6.3-8.2) g/dL Albumin 2.9 L (3.5-5.0) g/dL Assessment and Plan Assessment: 63 yo female w/ esophageal carcinoma -difficulty swallowing -initially patient requesting hospice and is not interested in any procedures update: later on the patient now requesting peg tube, we will make npo after midnight and I will discuss w/ surgeon client insights consultant Time with Patient: Less than 30
[2024-09-01] MEDS: HYDROmorphone 1 MG/ML 1 ML SYRINGE IVP PRN (12:21)
--- NOTE | 2024-09-01 12:50 | P.CRDCN ---
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 status post 11 radiation treatments in [place] and 2 chemo treatments and [facility]. Also history of COPD, chronic hypoxic respiratory failure on home O2 at 3 L nasal cannula. Patient was due for her third round of chemotherapy yesterday, but due to significant weakness, this was postponed until next week. Patient apparently was advised to go to the hospital for PEG tube placement. Patient is unable to take any oral medications at this time. We have been asked to evaluate the patient for A-fib with RVR. Patient has been started on Cardizem drip at 5 mg/h. She is currently running 160 bpm. Apparently patient has expressed desire to be hospice and DNR. Patient's is at the bedside and a daughter is on the phone and all questions have been answered. Daughter is very concerned that her pain issue is not being addressed and this has been referred to attending. Also daughter inquired about cardioversion which it was not advised at this time. Plan is for rate control management of the atrial fibrillation. Blood pressure 104/64, heart rate 160 on telemetry, pulse ox 96% on 4 L nasal cannula. -EKG: Atrial fibrillation 154 bpm, #2 atrial fibrillation with ventricular rate of 161. -Chest x-ray: Right midlung linear atelectasis. Known mediastinal mass. Right chest wall Mediport. COPD. -Laboratory studies: WBC 7.8, hemoglobin 8.3, platelet count 164. Troponin negative x 2. Electrolytes and renal function are normal. -Home cardiac medications: None Review Of Systems: At the time of my exam: CONSTITUTIONAL: Denies fever or chills. Generalized weakness. Weight loss. HEENT: Denies blurred vision, vision changes, or eye pain. Denies hemoptysis CARDIOVASCULAR: Denies chest pain. Denies orthopnea. Denies PND. Denies palpitations RESPIRATORY: Denies shortness of breath. GASTROINTESTINAL: Denies abdominal pain. Denies nausea or vomiting. HEMATOLOGIC: Denies bleeding disorders. GENITOURINARY: Denies any blood in urine. SKIN: Denies puritis. Denies rash. Physical examination: Gen: This is a 63-year-old female VS: reviewed HEENT: Head is atraumatic, normocephalic. Pupils equal, round. Sclerae is anicteric. NECK: Supple. No JVD. LUNGS: Clear to auscultation. No wheezes or rhonchi. No intercostal retractions. HEART: Irregular rate and rhythm. No murmur. ABDOMEN: Soft No tenderness. Reported diarrhea. EXTREMITIES: No pedal edema. No calf tenderness. NEUROLOGICAL: Patient is awake, alert and oriented x3. Assessment: New onset paroxysmal atrial fibrillation with RVR Squamous cell carcinoma of the mediastinum stage IIIa COPD Chronic hypoxic respiratory failure on home O2 at 3 L nasal cannula Anemia Plan: Resume patient's home cardiac medications Increase Cardizem to 15 mg/h Patient is on heparin drip Monitor blood pressure closely Patient is currently unable to take oral medications Obtain 2D echocardiogram to evaluate pericardial effusion and compression of the LA by mass Noted hospice consult in place Further recommendations to follow based upon clinical course Thank you kindly for this consultation. Nurse practitioner note has been reviewed, I agree with documented findings and plan of care. Patient was seen and examined. Past Medical History Past Medical History: Cancer, COPD, GERD/Reflux, Hearing Disorder / Deafness, Pneumonia, Skin Disorder Additional Past Medical History / Comment(s): psoriatic arthritis, right ear deaf, psoriasis hands feet. squmaous cell chest History of Any Multi-Drug Resistant Organisms: None Reported Past Surgical History: Back Surgery, Breast Surgery, Cholecystectomy, Joint Replacement, Orthopedic Surgery, Tubal Ligation Additional Past Surgical History / Comment(s): R hip replacement January 2024. 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, arthroscopy bilateral knees, left foot bone spur, ablation to back , injections to back, breast bx left, titanium tag, egd ,colonoscopy Past Anesthesia/Blood Transfusion Reactions: No Reported Reaction Additional Past Anesthesia/Blood Transfusion Reaction / Comment(s): no blood transfusion Past Psychological History: ADD/ADHD, Anxiety Smoking Status: Former smoker Past Alcohol Use History: Rare Past Drug Use History: None Reported Medications and Allergies Home Medications Medication Instructions Recorded Confirmed Type Albuterol Inhaler [Ventolin Hfa 2 puff INHALATION RT-Q4H PRN 02/04/24 08/31/24 History Inhaler] Amitriptyline HCl 25 mg PO HS 02/04/24 08/31/24 History Cetirizine HCl 10 mg PO HS 02/04/24 08/31/24 History Omeprazole 20 mg PO DAILY 02/04/24 08/31/24 History traMADol HCL 50 mg PO TID PRN 02/04/24 08/31/24 History Ipratropium-Albuterol Nebulize 3 ml INHALATION RT-QID PRN 07/13/24 08/31/24 History [Duoneb 0.5 mg-3 mg/3 ml Soln] L.acidoph,Paracasei, B.lactis 1 cap PO HS 07/13/24 08/31/24 History [Probiotic] Umeclidinium Brm/Vilanterol Tr 1 puff INHALATION RT-DAILY 07/13/24 08/31/24 History [Anoro Ellipta 62.5-25 Mcg INH] predniSONE 50 mg PO DAILY #10 tab 07/15/24 08/31/24 Rx Benzonatate [Tessalon Perle] 200 mg PO TID PRN 08/15/24 08/31/24 History Prochlorperazine [Compazine] 10 mg PO Q6H PRN 08/15/24 08/31/24 History ondansetron HCL [Zofran] 8 mg PO Q8HR PRN 08/15/24 08/31/24 History ALPRAZolam [Xanax] 0.5 mg PO BID PRN 08/31/24 08/31/24 History Ondansetron Odt [Zofran Odt] 8 mg PO Q8HR PRN 08/31/24 08/31/24 History oxyCODONE-APAP 5-325MG [Percocet 1 tab PO Q6HR PRN 08/31/24 08/31/24 History 5-325 mg] Allergies Allergy/AdvReac Type Severity Reaction Status Date / Time lactose Allergy Unknown Verified 08/31/24 17:08 mold Allergy Unknown Verified 08/31/24 17:08 nickel Allergy Rash/Hives Verified 08/31/24 17:08 NSAIDS (Non-Steroidal AdvReac ACID REFLUX Verified 08/31/24 17:08 Anti-Inflamma dust Allergy Unknown Uncoded 08/31/24 17:08 Physical Exam Vitals: Vital Signs Temp Pulse Pulse Resp BP BP Pulse Ox 09/01/24 03:54 20 96 09/01/24 03:40 98.2 F 171 H 22 104/64 93 L 09/01/24 00:00 97.9 F 157 H 18 107/48 97 08/31/24 22:39 97.8 F 164 H 18 101/57 94 L 08/31/24 21:53 98.8 F 160 H 20 89/68 94 L 08/31/24 20:05 97.9 F 146 H 100/72 94 L 08/31/24 19:30 142 H 15 88/64 95 08/31/24 19:00 133 H 16 109/65 95 08/31/24 18:30 151 H 15 101/52 97 08/31/24 18:00 149 H 15 112/73 93 L 08/31/24 17:30 156 H 14 101/53 89 L 08/31/24 17:00 181 H 22 96/44 90 L 08/31/24 15:41 150 H 08/31/24 14:07 98 F 92 18 91/59 100 Intake and Output 08/31/24 09/01/24 09/01/24 22:59 06:59 14:59 Intake Total 9.083 153.638 Output Total 200 Balance 9.083 -46.362 Intake: Intake, IV Titration 9.083 153.638 Amount Diltiazem 125 mg In 9.083 83.458 Sodium Chloride 0.9% 100 ml @ 5 MG/HR 5 mls/hr IV .Q24H [facility] Rx#:[id number] Heparin Sod,Pork in 0.45% 70.18 NaCl 25,000 unit In 0.45 % NaCl 1 250ml.bag @ 12 UNITS/KG/HR 9.036 mls/hr IV .Q24H [facility] Rx#: [id number] Output: Urine 200 Other: Voiding Method External Catheter # Voids 0 Weight 75.296 kg Results 09/01/24 06:39 08/31/24 15:44 Cardiac Enzymes 08/31/24 08/31/24 08/31/24 Range/Units 15:44 18:28 20:37 AST 19 (14-36) U/L Troponin I <0.012 <0.012 (0.000-0.034) ng/mL Coagulation 08/31/24 08/31/24 09/01/24 Range/Units 15:44 23:12 06:39 PT 13.2 H (10.0-12.5) sec APTT 20.0 L 22.5 27.6 (22.0-30.0) sec CBC 08/31/24 08/31/24 Range/Units 15:44 18:47 WBC 8.3 7.8 (3.8-10.6) k/uL RBC 2.87 L 2.77 L (3.80-5.40) m/uL Hgb 8.3 L D 8.3 L (11.4-16.0) gm/dL Hct 26.2 L 26.3 L (34.0-46.0) % Plt Count 169 164 (150-450) k/uL Comprehensive Metabolic Panel 08/31/24 Range/Units 15:44 Sodium 138 (137-145) mmol/L Potassium 4.2 (3.5-5.1) mmol/L Chloride 103 (98-107) mmol/L Carbon Dioxide 27 (22-30) mmol/L BUN 17 (7-17) mg/dL Creatinine 0.92 (0.52-1.04) mg/dL Glucose 100 H (74-99) mg/dL Calcium 8.0 L (8.4-10.2) mg/dL AST 19 (14-36) U/L ALT 30 (4-34) U/L Alkaline Phosphatase 95 (38-126) U/L Total Protein 5.4 L (6.3-8.2) g/dL Albumin 2.9 L (3.5-5.0) g/dL Current Medications Generic Name Dose Route Start Last Admin Trade Name Freq PRN Reason Stop Dose Admin Aspirin 325 mg 09/01/24 09:00 Aspirin 325 Mg Tab PO DAILY [facility] Heparin Sodium/Sodium Chloride 250 mls @ 9.036 mls/hr 08/31/24 16:00 09/01/24 00:38 25,000 unit/ Sodium Chloride IV 15 units/kg/hr .Q24H [facility] 11.294 mls/hr Titration Protocol 12 UNITS/KG/HR Sodium Chloride 1,000 mls @ 75 mls/hr 08/31/24 18:15 09/01/24 06:20 Saline 0.9% IV Not Given .[id number] [facility] Diltiazem HCl 125 mg/ Sodium 125 mls @ 10 mls/hr 09/01/24 07:30 Chloride IV .[id number] [facility] 10 MG/HR Metoprolol Tartrate 25 mg 09/01/24 07:25 Metoprolol Tartrate 25 Mg Tab PO BID [facility] Morphine Sulfate 2 mg 08/31/24 23:13 09/01/24 05:14 Morphine Sulfate 2 Mg/Ml Syringe IVP 2 mg Q6HR PRN Administration Pain/Discomfort Nitroglycerin 0.4 mg 08/31/24 17:59 Nitroglycerin Sl Tabs 0.4 Mg Tab SUBLINGUAL Q5M PRN Chest Pain Prochlorperazine Edisylate 5 mg 08/31/24 23:03 09/01/24 05:14 Prochlorperazine Inj 10 Mg/2 Ml Vial IVP 5 mg Q3HR PRN Administration Nausea And Vomiting Intake and Output 08/31/24 09/01/24 09/01/24 22:59 06:59 14:59 Intake Total 9.083 153.638 Output Total 200 Balance 9.083 -46.362 Intake: Intake, IV Titration 9.083 153.638 Amount Diltiazem 125 mg In 9.083 83.458 Sodium Chloride 0.9% 100 ml @ 5 MG/HR 5 mls/hr IV .Q24H [facility] Rx#:[id number] Heparin Sod,Pork in 0.45% 70.18 NaCl 25,000 unit In 0.45 % NaCl 1 250ml.bag @ 12 UNITS/KG/HR 9.036 mls/hr IV .Q24H [facility] Rx#: [id number] Output: Urine 200 Other: Voiding Method External Catheter # Voids 0 Weight 75.296 kg 08/31/24 18:47 08/31/24 15:44
[2024-09-01] MEDS ORDERED: ZINC OXIDE PASTE (Z-GUARD) 1 APPLIC TOPICAL PRN (12:53)
[2024-09-01] MEDS ORDERED: ONDANSETRON 4 MG/2 ML VIAL IVP PRN (13:42)
--- NOTE | 2024-09-01 16:25 | P.PN ---
Subjective Progress Note Date: 09/01/24 Principal diagnosis: Afib with RVR, failure to thrive Per family, patient had increased dyspnea over the past couple days. She is still having difficulty eating as well - feels food is getting stuck in esophagus. Tried magic mouth wash with partial benefit. Was sent to ER after seeing Dr. Robledo (oncology @ [facility]) and was felt to be very weak. Objective - Vital Signs Vital signs: Vital Signs Temp 98.0 F 09/01/24 08:50 Pulse 116 H 09/01/24 11:25 Resp 16 09/01/24 11:25 BP 101/56 09/01/24 11:25 Pulse Ox 98 09/01/24 11:25 FiO2 Intake & Output 08/31/24 09/01/24 09/01/24 18:59 06:59 18:59 Intake Total 9.083 153.638 132.14 Output Total 200 1400 Balance 9.083 -46.362 -1267.86 Weight 75.296 kg 75.296 kg Intake: Intake, IV Titration 9.083 153.638 132.14 Amount Diltiazem 125 mg In 9.083 83.458 Sodium Chloride 0.9% 100 ml @ 5 MG/HR 5 mls/hr IV .Q24H [facility] Rx#:[id number] Heparin Sod,Pork in 0.45% 70.18 132.14 NaCl 25,000 unit In 0.45 % NaCl 1 250ml.bag @ 12 UNITS/KG/HR 9.036 mls/hr IV .Q24H [facility] Rx#: [id number] Output: Urine 200 1400 Other: Voiding Method External Catheter External Catheter # Voids 0 - Constitutional General appearance: Present: mild distress - EENT Eyes: Present: EOMI, PERRLA ENT: Present: hearing grossly normal - Neck Neck: Absent: lymphadenopathy - Respiratory Respiratory: right: rhonchi, left: CTA, bilateral: diminished - Cardiovascular Rhythm: regular - Gastrointestinal General gastrointestinal: Absent: distended, tenderness - Neurologic Neurologic: Present: CNII-XII intact - Psychiatric Psychiatric: Present: A&O x's 3 - Labs CBC & Chem 7: 09/01/24 06:39 08/31/24 15:44 Labs: Abnormal Lab Results - Last 24 Hours (Table) 08/31/24 08/31/24 08/31/24 Range/Units 15:44 15:44 15:44 RBC 2.87 L (3.80-5.40) m/uL Hgb 8.3 L D (11.4-16.0) gm/dL Hct 26.2 L (34.0-46.0) % RDW 16.7 H (11.5-15.5) % Lymphocytes # 0.7 L (1.0-4.8) k/uL PT 13.2 H (10.0-12.5) sec INR 1.2 H (<1.2) APTT 20.0 L (22.0-30.0) sec Glucose 100 H (74-99) mg/dL Calcium 8.0 L (8.4-10.2) mg/dL Total Protein 5.4 L (6.3-8.2) g/dL Albumin 2.9 L (3.5-5.0) g/dL HDL Cholesterol (40.00-60.00) mg/dL 08/31/24 09/01/24 09/01/24 Range/Units 18:47 06:39 06:39 RBC 2.77 L 2.74 L (3.80-5.40) m/uL Hgb 8.3 L 8.1 L (11.4-16.0) gm/dL Hct 26.3 L 25.5 L (34.0-46.0) % RDW 16.7 H 16.8 H (11.5-15.5) % Lymphocytes # 0.8 L 0.8 L (1.0-4.8) k/uL PT (10.0-12.5) sec INR (<1.2) APTT (22.0-30.0) sec Glucose (74-99) mg/dL Calcium (8.4-10.2) mg/dL Total Protein (6.3-8.2) g/dL Albumin (3.5-5.0) g/dL HDL Cholesterol 31.80 L (40.00-60.00) mg/dL Assessment and Plan Assessment: Ms. Blount is a 63-year-old with a stage IIIA (cT0, cN2, cM0) squamous cell carcinoma of the mediastinum with compression of the tracheal wall. She initiated chemoradiation finishing only planned treatments. She was hospitalized - found to be in Afib with RVR. Plan: 1. Afib w/ RVR: Currently on Cardizem + heparin drip; improving and now in sinus rhythm. Per family patient appears more comfortable. 2. Stage III NSCLC: Patient has had a couple of treatment interruptions thus far. I discussed with the family that provided she is able to wean off of cardizem we could continue RT early next week. 3. Dysphagia: It is too early for RT esophagitis, however possible component of mass effect considering tumor was seen to abut esophagus on prior imaging. If patient is agreeable, PEG does not sound unreasonable as she has not been able to eat per family. Time with Patient: Less than 30
--- NOTE | 2024-09-01 17:09 | P.PN ---
Subjective Progress Note Date: 09/01/24 Hospital Course: 63-year-old female with past medical history of mediastinal squamous cell carc inoma stage III a following with Dr. Wooten in [facility] and Dr. Robledo in [place], chronic hypoxic respiratory failure secondary to COPD on 2 L of nasal cannula, who presented to the ED after she was encouraged to come here by her oncologist.She was supposed to receive her third round of chemo today however she has been very weak and was advised to come here and potentially get a PEG tube placed. She has been having increased difficulty swallowing and now is barely able to swallow liquids. She has also increased her oxygen requirements over the last week. She used to be on 2 L but for the last week has been requiring 3 L. She has been "coughing up bile" with an episode of hemoptysis about a week or two ago post radiation. The hemoptysis has resolved. Patient denying recent fever, abdominal pain, chest pain. She reports chills, severe fatigue, cough productive of a green-omar sputum (reported as "bile"), chest pressure, severe nausea, one episode of vomiting yesterday, dyspnea. Patient reports that IV Compazine is only thing that helps with her nausea. After the patient's left the room, the patient expressed a desire to be on hospice and to be a DNR/DNI stating that she wanted to fight at first but no longer has the energy to. ED RN patient was tachycardia, EKG showed A-fib with RVR, she was given Cardizem, started on IV heparin, cardiology consulted. Recommended to continue Cardizem, TTE ordered. Hospice consult was placed, patient found that she would feel comfortably proceeding with hospice care although her family at bedside was highly encouraging to continue the treatment. Heme-onc consulted, general surgery consulted for PEG, cardiology consulted for new onset A-fib. Patient was seen by surgical team in the morning, declined any procedures done, later requested to be reevaluated per family request. Subjective: Patient was seen and examined at bedside, multiple family members present during exam. Patient complains of fatigue, shortness of breath, nausea, moderate to severe pain Pertinent positives and negatives as discussed above, a complete review of systems was performed and all other systems are negative. Vitals Signs Reviewed. General: [Appears older than her stated age, ill-appearing Derm: [warm], [dry] Head: [atraumatic], [normocephalic], [symmetric] Eyes: [EOMI], [no lid lag], [anicteric sclera] Mouth: [no lip lesion], [mucus membranes moist] Cardiovascular: [S1S2 irregular Lungs: [CTA bilateral], [no rhonchi, no rales] , [no accessory muscle use] Abdominal: [soft], [ nontender to palpation], [no guarding], [no appreciable organomegaly] Ext: [no gross muscle atrophy], [no edema], [no contractures] Neuro: [ CN II-XI grossly intact], [no focal neuro deficits] Psych: [Alert], [oriented], [appropriate affect] Data Reviewed Today: Pertinent Labs: No leukocytosis, hemoglobin stable 8.1, platelet count normal at 188, lipid panel with LDL at 57, TSH 0.64 Assessment and Plan: New onset A-fib with RVR -Cardiology consulted -Continue Cardizem, currently maxed out at 15 mg/h, continue heparin -TTE ordered, pending chronic hypoxic respiratory failure secondary to COPD -Continue breathing treatment -Continue Solu-Medrol 50 mg daily Stage III NSCLC Intractable nausea secondary to above Dysphagia secondary to above, possible component of mass effect Hypoproteinemia, hypoalbuminemia secondary to above Chronic normocytic anemia -Continue IV Compazine -Per oncology, if she is able to wean off Cardizem, could continue RT early next week -Surgery on board -Anemia workup pending including iron panel, B12, folate [Resolved:] DVT ppx: Heparin drip Code status: DNR/DNI Anticipated discharge place: Pending clinical course Anticipated discharge time: Pending clinical course Objective - Vital Signs Vital signs: Vital Signs Temp 98.0 F 09/01/24 08:50 Pulse 116 H 09/01/24 11:25 Resp 16 09/01/24 11:25 BP 101/56 09/01/24 11:25 Pulse Ox 98 09/01/24 11:25 FiO2 Intake & Output 08/31/24 09/01/24 09/01/24 18:59 06:59 18:59 Intake Total 9.083 153.638 132.14 Output Total 200 1400 Balance 9.083 -46.362 -1267.86 Weight 75.296 kg 75.296 kg Intake: Intake, IV Titration 9.083 153.638 132.14 Amount Diltiazem 125 mg In 9.083 83.458 Sodium Chloride 0.9% 100 ml @ 5 MG/HR 5 mls/hr IV .Q24H [facility] Rx#:[id number] Heparin Sod,Pork in 0.45% 70.18 132.14 NaCl 25,000 unit In 0.45 % NaCl 1 250ml.bag @ 12 UNITS/KG/HR 9.036 mls/hr IV .Q24H [facility] Rx#: [id number] Output: Urine 200 1400 Other: Voiding Method External Catheter External Catheter # Voids 0 - Labs CBC & Chem 7: 09/01/24 06:39 08/31/24 15:44 Labs: Abnormal Lab Results - Last 24 Hours (Table) 08/31/24 08/31/24 09/01/24 Range/Units 15:44 18:47 06:39 RBC 2.77 L (3.80-5.40) m/uL Hgb 8.3 L (11.4-16.0) gm/dL Hct 26.3 L (34.0-46.0) % RDW 16.7 H (11.5-15.5) % Lymphocytes # 0.8 L (1.0-4.8) k/uL PT 13.2 H (10.0-12.5) sec INR 1.2 H (<1.2) APTT 20.0 L (22.0-30.0) sec HDL Cholesterol 31.80 L (40.00-60.00) mg/dL 09/01/24 Range/Units 06:39 RBC 2.74 L (3.80-5.40) m/uL Hgb 8.1 L (11.4-16.0) gm/dL Hct 25.5 L (34.0-46.0) % RDW 16.8 H (11.5-15.5) % Lymphocytes # 0.8 L (1.0-4.8) k/uL PT (10.0-12.5) sec INR (<1.2) APTT (22.0-30.0) sec HDL Cholesterol (40.00-60.00) mg/dL
[2024-09-01] MEDS: MAG HYDROX/AL HYDROX/SIMETH 30 ML, LIDOCAINE VISCOUS 2% 30 ML, diphenhydrAMINE ELIXIR 7... PO SCH (18:44)
[2024-09-01] MEDS ORDERED: IPRATROPIUM-ALBUTEROL 3 ML NEB INHALATION PRN (20:08)
--- NOTE | 2024-09-01 20:24 | P.CONS ---
History of Present Illness - Reason for Consult Consult date: 09/01/24 esophageal cancer Requesting physician: Lamberto Abraham - Chief Complaint n/v - History of Present Illness Patient is a 63-year-old female with a history of NSCLC, who follows with Dr. Robledo and locally with radiation oncology. CTA of the chest on 07/13/2024 did not reveal any evidence of pulmonary embolism, but did note mediastinal mass extending down the trachea towards the right pulmonary hilum measuring 5.7 x 4.6 x 7.7 cm. The masses around the right main bronchus and right upper lung airways. Labs were notable for neutrophilic leukocytosis with WBC 39.5, hemoglobin 10.8 (MCV 92.7), platelets 493. Anemia workup revealed no evidence of iron, vitamin B12, or folic acid deficiency. Lactate dehydrogenase was normal. Pulmonology was consulted and she did have bronchoscopy performed on 07/14/2024 with irregular mucosa involving the whole angy and distal trachea. Multiple biopsies were taken of the angy, which were nondiagnostic. BAL did note rare atypical cells suspicious for non-small cell carcinoma. Patient underwent tracheal tumor biopsy on 07/27/2024 which again was nondiagnostic of neoplasm. Biopsy of mediastinal mass revealed poorly differentiated non-small carcinoma consistent with squamous cell carcinoma. PET/CT on 07/28/2024 showed intense uptake within the mediastinal mass. No mediastinal or hilar metastasis identified. There is some scattered areas of uptake within the thoracic vertebral body suspicious for metastasis. She was scheduled to begin RT on 08/17 and weekly carbo/taxol on 08/22. However, pt then presented the emergency room for hypercalcemia and leukocytosis. Upon admit WBC 62.7, hemoglobin 11.9, platelets 407,000. Calcium 13.0, ionized calcium 6.9. Patient was given Zometa, IV hydration and calcitonin. CT brain was negative for acute intracranial processes. Chest x-ray showing possible right upper lobe pneumonia, patient was started on IV antibiotics. Durin admit, pt was started on radiation and received cycle 1 of carbo/taxol. Since discharge pt has continued on RT, and completed cycle 2 of carbo/taxol on 08/24, but did not complete cycle 3 yesterday due to progressing weakness and n/v, and was instructed by her oncologist, Dr. Robledo to come to the hospital for further evaluation Patient presented to the emergency room due to complaints of dysphagia and nausea vomiting with oral intake and progressive weakness. Chest x-ray on admit showed development of right lung linear atelectasis. Known mediastinal mass. COPD changes. Family is concerned about patient's lack of oral intake and wea kness. Requesting PEG tube placement. Family also states that palliative care was referred by her primary oncologist but they have never showed up at the house as scheduled. Patient was also noted upon admit to have A-fib with RVR and has been started on Cardizem. Cardiology following. Review of Systems 10 point ROS is negative except as stated in the HPI Past Medical History Past Medical History: Cancer, COPD, GERD/Reflux, Hearing Disorder / Deafness, Pneumonia, Skin Disorder Additional Past Medical History / Comment(s): psoriatic arthritis, right ear deaf, psoriasis hands feet. squmaous cell chest History of Any Multi-Drug Resistant Organisms: None Reported Past Surgical History: Back Surgery, Breast Surgery, Cholecystectomy, Joint Re placement, Orthopedic Surgery, Tubal Ligation Additional Past Surgical History / Comment(s): R hip replacement January 2024. 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, arthroscopy bilateral knees, left foot bone spur, ablation to back , injections to back, breast bx left, titanium tag, egd ,colonoscopy Past Anesthesia/Blood Transfusion Reactions: No Reported Reaction Additional Past Anesthesia/Blood Transfusion Reaction / Comm: no blood transfusion Past Psychological History: ADD/ADHD, Anxiety Smoking Status: Former smoker Past Alcohol Use History: Rare Past Drug Use History: None Reported Medications and Allergies Home Medications Medication Instructions Recorded Confirmed Type Albuterol Inhaler [Ventolin Hfa 2 puff INHALATION RT-Q4H PRN 02/04/24 08/31/24 History Inhaler] Amitriptyline HCl 25 mg PO HS 02/04/24 08/31/24 History Cetirizine HCl 10 mg PO HS 02/04/24 08/31/24 History Omeprazole 20 mg PO DAILY 02/04/24 08/31/24 History traMADol HCL 50 mg PO TID PRN 02/04/24 08/31/24 History Ipratropium-Albuterol Nebulize 3 ml INHALATION RT-QID PRN 07/13/24 08/31/24 History [Duoneb 0.5 mg-3 mg/3 ml Soln] L.acidoph,Paracasei, B.lactis 1 cap PO HS 07/13/24 08/31/24 History [Probiotic] Umeclidinium Brm/Vilanterol Tr 1 puff INHALATION RT-DAILY 07/13/24 08/31/24 History [Anoro Ellipta 62.5-25 Mcg INH] predniSONE 50 mg PO DAILY #10 tab 07/15/24 08/31/24 Rx Benzonatate [Tessalon Perle] 200 mg PO TID PRN 08/15/24 08/31/24 History Prochlorperazine [Compazine] 10 mg PO Q6H PRN 08/15/24 08/31/24 History ondansetron HCL [Zofran] 8 mg PO Q8HR PRN 08/15/24 08/31/24 History ALPRAZolam [Xanax] 0.5 mg PO BID PRN 08/31/24 08/31/24 History Ondansetron Odt [Zofran Odt] 8 mg PO Q8HR PRN 08/31/24 08/31/24 History oxyCODONE-APAP 5-325MG [Percocet 1 tab PO Q6HR PRN 08/31/24 08/31/24 History 5-325 mg] Allergies Allergy/AdvReac Type Severity Reaction Status Date / Time lactose Allergy Unknown Verified 08/31/24 17:08 mold Allergy Unknown Verified 08/31/24 17:08 nickel Allergy Rash/Hives Verified 08/31/24 17:08 NSAIDS (Non-Steroidal AdvReac ACID REFLUX Verified 08/31/24 17:08 Anti-Inflamma dust Allergy Unknown Uncoded 08/31/24 17:08 Physical Exam Vitals: Vital Signs Temp Pulse Pulse Resp BP BP Pulse Ox 09/01/24 03:54 20 96 09/01/24 03:40 98.2 F 171 H 22 104/64 93 L 09/01/24 00:00 97.9 F 157 H 18 107/48 97 08/31/24 22:39 97.8 F 164 H 18 101/57 94 L 08/31/24 21:53 98.8 F 160 H 20 89/68 94 L 08/31/24 20:05 97.9 F 146 H 100/72 94 L 08/31/24 19:30 142 H 15 88/64 95 08/31/24 19:00 133 H 16 109/65 95 08/31/24 18:30 151 H 15 101/52 97 08/31/24 18:00 149 H 15 112/73 93 L 08/31/24 17:30 156 H 14 101/53 89 L 08/31/24 17:00 181 H 22 96/44 90 L 08/31/24 15:41 150 H 08/31/24 14:07 98 F 92 18 91/59 100 Intake and Output 08/31/24 09/01/24 09/01/24 22:59 06:59 14:59 Intake Total 9.083 153.638 Output Total 200 Balance 9.083 -46.362 Intake: Intake, IV Titration 9.083 153.638 Amount Diltiazem 125 mg In 9.083 83.458 Sodium Chloride 0.9% 100 ml @ 5 MG/HR 5 mls/hr IV .Q24H [facility] Rx#:[id number] Heparin Sod,Pork in 0.45% 70.18 NaCl 25,000 unit In 0.45 % NaCl 1 250ml.bag @ 12 UNITS/KG/HR 9.036 mls/hr IV .Q24H [facility] Rx#: [id number] Output: Urine 200 Other: Voiding Method External Catheter # Voids 0 Weight 75.296 kg - Constitutional General appearance: average body habitus, no acute distress - EENT Eyes: anicteric sclerae, EOMI ENT: hearing grossly normal - Respiratory breathing is even and unlabored - Cardiovascular well perfused - Gastrointestinal General gastrointestinal: soft, no tenderness - Integumentary Integumentary: no cyanotic, no jaundiced - Neurologic Neurologic: CNII-XII intact - Psychiatric Psychiatric: A&O x's 3 Results CBC & Chem 7: 09/01/24 06:39 08/31/24 15:44 Labs: Abnormal Lab Results - Last 24 Hours (Table) 08/31/24 08/31/24 08/31/24 Range/Units 15:44 15:44 15:44 RBC 2.87 L (3.80-5.40) m/uL Hgb 8.3 L D (11.4-16.0) gm/dL Hct 26.2 L (34.0-46.0) % RDW 16.7 H (11.5-15.5) % Lymphocytes # 0.7 L (1.0-4.8) k/uL PT 13.2 H (10.0-12.5) sec INR 1.2 H (<1.2) APTT 20.0 L (22.0-30.0) sec Glucose 100 H (74-99) mg/dL Calcium 8.0 L (8.4-10.2) mg/dL Total Protein 5.4 L (6.3-8.2) g/dL Albumin 2.9 L (3.5-5.0) g/dL HDL Cholesterol (40.00-60.00) mg/dL 08/31/24 09/01/24 09/01/24 Range/Units 18:47 06:39 06:39 RBC 2.77 L 2.74 L (3.80-5.40) m/uL Hgb 8.3 L 8.1 L (11.4-16.0) gm/dL Hct 26.3 L 25.5 L (34.0-46.0) % RDW 16.7 H 16.8 H (11.5-15.5) % Lymphocytes # 0.8 L 0.8 L (1.0-4.8) k/uL PT (10.0-12.5) sec INR (<1.2) APTT (22.0-30.0) sec Glucose (74-99) mg/dL Calcium (8.4-10.2) mg/dL Total Protein (6.3-8.2) g/dL Albumin (3.5-5.0) g/dL HDL Cholesterol 31.80 L (40.00-60.00) mg/dL Chest x-ray: report reviewed Assessment and Plan (1) Atrial fibrillation with rapid ventricular response Current Visit: Yes Status: Acute Priority: High Code(s): I48.91 - UNSPECIFIED ATRIAL FIBRILLATION SNOMED Code(s): 001083501427817 (2) Dysphagia Current Visit: Yes Status: Acute Priority: High Code(s): R13.10 - DYSPHAGIA, UNSPECIFIED SNOMED Code(s): 53707996 (3) Squamous cell carcinoma lung Current Visit: Yes Status: Acute Priority: High Code(s): C34.90 - MALIGNANT NEOPLASM OF UNSP PART OF UNSP BRONCHUS OR LUNG SNOMED Code(s): 013003181 Plan: N/V, dysphagia, poor oral intake: Presented to the emergency room due to complaints of dysphagia and nausea vomiting with oral intake and progressive weakness. -Chest x-ray on admit showed development of right lung linear atelectasis. Known mediastinal mass. COPD changes. -Family is concerned about patient's lack of oral intake and weakness. Requesting PEG tube placement. General surgery consulted A fib with RVR -On cardizem drip -Cardiology following Squamous cell carcinoma of lung: -Oncology history as stated in the HPI -During last admit, pt was started on radiation and received cycle 1 of carbo/taxol. Since discharge pt has continued on RT, and completed cycle 2 of carbo/taxol on 08/24, but did not complete cycle 3 yesterday due to progressing weakness and n/v, and was instructed by her oncologist, Dr. Robledo to come to the hospital for further evaluation -Spoke with rad onc, concern for mass abutting to esophagus causing dysphagia. Plan was to continue RT today, but due to uncontrolled heart rate and cardizem drip, RT today has been held -Chemo on hold until acutely recovered, will defer further management to her primary oncologist, Venkat Kyle on when appropriate to reinitiate tx Doctor attests: I performed a history and physical examination of this patient, developed impression and plan of care. Discussed with dictator. I agree with dictators note, documented as a scribe.
[2024-09-01] MEDS: FUROSEMIDE 10 MG/ML 10 ML VIAL IV STA (20:35)
--- NOTE | 2024-09-01 20:46 | XR ---
EXAMINATION TYPE: XR chest 1V portable DATE OF EXAM: 09/01/2024 8:22 PM COMPARISON: 08/31/2024 CLINICAL INDICATION: Female, 63 years old with history of Interval change, TECHNIQUE: XR chest 1V portable view(s) obtained. FINDINGS: The heart size is mildly prominent. The pulmonary vasculature is normal. Previous linear opacity is diminished on the right. Perihilar infiltrate remains present on the right . There is developing left lower lobe infiltrate. Correlate for pneumonia or atelectasis.. IMPRESSION: 1. Left lower lobe pneumonia or atelectasis. 2. Right perihilar infiltrate. Correlate for pneumonia or atelectasis [facility], , 09/01/2024 8:44 PM
[2024-09-01 22:42] LABS: ABG Base Excess -0.9 mmol/L; ABG HCO3 24 mmol/L (21-25); ABG Oxygen Saturation 95.6 % (94-97); ABG PCO2 40 mmHg (35-45); ABG PH 7.38 (7.35-7.45); ABG PO2 77 mmHg (83-108); ABG TCO2 25 mmol/L (19-24); Allen Test Performed? Yes
[2024-09-02] MEDS ORDERED: VANCOMYCIN IV PER PHARMACY 1 EACH MISC MISCELLANE PRN (01:28)
[2024-09-02] MEDS: CEFEPIME 2 GM in SODIUM CHLORIDE 0.9% 100 ML IVPB SCH (02:16)
[2024-09-02] MEDS: VANCOMYCIN 1,250 MG in SODIUM CHLORIDE 0.9% 250 ML IVPB ONE (02:26)
[2024-09-02 08:23] LABS: ALT 24 U/L (4-34); AST 19 U/L (14-36); African American GFR (CKD) 89 (>60 ml/min/1.73 sqM); Albumin 2.8 g/dL (3.5-5.0); Alkaline Phosphatase 94 U/L (38-126); Anion Gap 14 mmol/L; Blood Urea Nitrogen 11 mg/dL (7-17); Calcium 7.5 mg/dL (8.4-10.2); Carbon Dioxide 18 mmol/L (22-30); Chloride 105 mmol/L (98-107); Glucose 99 mg/dL (74-99); Magnesium 1.6 mg/dL (1.6-2.3); Non-African American GFR(CKD) 78 (>60 ml/min/1.73 sqM); Potassium 4.1 mmol/L (3.5-5.1); Sodium 137 mmol/L (137-145); Total Protein 5.3 g/dL (6.3-8.2)
[2024-09-02 08:28] LABS: Anisocytosis Slight; Basophils % (A) 0 %; Eosinophils % (A) 0 %; HCT 27.1 % (34.0-46.0); HGB 8.3 gm/dL (11.4-16.0); Hypochromasia Marked; Lymphocytes # (A) 0.7 k/uL (1.0-4.8); Lymphocytes % (A) 7 %; MCH 29.4 pg (25.0-35.0); MCHC 30.8 g/dL (31.0-37.0); MCV 95.3 fL (80.0-100.0); Mean Platelet Volume 8.4; Monocytes # (A) 0.5 k/uL (0-1.0); Monocytes % (A) 5 %; Neutrophils # (A) 8.7 k/uL (1.3-7.7); Neutrophils % (A) 86 %; Platelet Count 179 k/uL (150-450); RBC 2.84 m/uL (3.80-5.40); RDW 16.5 % (11.5-15.5); WBC 10.1 k/uL (3.8-10.6)
[2024-09-02] MEDS ORDERED: methylPREDNISolone SOD SUCCI 40 MG/ML 1 ML VIAL IV SCH (09:00)
[2024-09-02] MEDS ORDERED: methylPREDNISolone SOD SUCCI 125 MG/2 ML VIAL IV SCH (09:00)
[2024-09-02] MEDS: IPRATROPIUM-ALBUTEROL 3 ML NEB INHALATION SCH (09:31)
[2024-09-02] MEDS ORDERED: LIDOCAINE 1% INJ 10MG/ML (20 ML MDV) ONE (11:03)
[2024-09-02] MEDS ORDERED: PROPOFOL 10 MG/ML 20 ML VIAL IV ONE (11:03)
[2024-09-02] MEDS: SODIUM CHLORIDE 0.9% 500 ML 500 ML IV ONE (11:04)
--- NOTE | 2024-09-02 11:48 | P.OP ---
Date of Procedure: 09/02/24 Preoperative Diagnosis: Dysphagia with SCC of Esophagus Postoperative Diagnosis: Dysphagia with SCC of Esophagus Procedure(s) Performed: EGD with PEG Tube Insertion Anesthesia: MAC Surgeon: David Pak Pathology: none sent Condition: stable Disposition: PACU Description of Procedure: After informed consent was obtained, the patient was brought to the endoscopy suite. She was placed in the supine position and was given IV sedation by the Anesthesia Department. An EGD was performed from above. The stomach was transilluminated and an optimal position for the PEG tube was identified using the single poke method. The skin was infiltrated with local and the needle and sheath were inserted through the abdomen into the stomach under direct visualization. The needle was removed and a guidewire was inserted through the sheath. The guidewire was grasped from above with a snare. It was removed completely and the Ponsky PEG tube was secured to the guidewire. The guidewire and PEG tube were then pulled through the mouth and esophagus and snug to the abdominal wall. There was no evidence of bleeding. The Bolster was placed on the PEG site
[2024-09-02] MEDS: methylPREDNISolone SOD SUCCI 125 MG/2 ML VIAL IV SCH (12:14)
[2024-09-02] MEDS: VANCOMYCIN 1,500 MG in SODIUM CHLORIDE 0.9% 500 ML 500 ML IVPB SCH (12:14)
--- NOTE | 2024-09-02 14:03 | P.PN ---
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 Wooten in [facility] and Dr. Robledo in [place], chronic hypoxic respiratory failure secondary to COPD on 2 L of nasal cannula, who presented to the ED after she was encouraged to come here by her oncologist.She was supposed to receive her third round of chemo today however she has been very weak and was advised to come here and potentially get a PEG tube placed. She has been having increased difficulty swallowing and now is barely able to swallow liquids. She has also increased her oxygen requirements over the last week. She used to be on 2 L but for the last week has been requiring 3 L. She has been "coughing up bile" with an episode of hemoptysis about a week or two ago post radiation. The hemoptysis has resolved. Patient denying recent fever, abdominal pain, chest pain. She reports chills, severe fatigue, cough productive of a green-omar sputum (reported as "bile"), chest pressure, severe nausea, one episode of vomiting yesterday, dyspnea. Patient reports that IV Compazine is only thing that helps with her nausea. After the patient's left the room, the patient expressed a desire to be on hospice and to be a DNR/DNI stating that she wanted to fight at first but no longer has the energy to. ED RN patient was tachycardia, EKG showed A-fib with RVR, she was given Cardizem, started on IV heparin, cardiology consulted. Recommended to continue Cardizem, TTE ordered. Hospice consult was placed, patient found that she would feel comfortably proceeding with hospice care although her family at bedside was highly encouraging to continue the treatment. Heme-onc consulted, general surgery consulted for PEG, cardiology consulted for new onset A-fib. Patient was seen by surgical team in the morning, declined any procedures done, later requested to be reevaluated per family request. PEG tube was placed on 09/02 09/01 in the evening patient developed worsening SOB, chest x-ray was done and showed left lower lobe pneumonia or atelectasis, patient was started on cefepime and vancomycin, was given IV Lasix with symptoms improvement. Pulmonology consulted Subjective: Patient was seen and examined at bedside patient's present during exam. Patient states that her shortness of breath is improving, pain is better controlled today, she shared that she was thinking about hospice because how miserable she felt yesterday Pertinent positives and negatives as discussed above, a complete review of systems was performed and all other systems are negative. Vitals Signs Reviewed. General: [Appears older than her stated age, ill-appearing Derm: [warm], [dry] Head: [atraumatic], [normocephalic], [symmetric] Eyes: [EOMI], [no lid lag], [anicteric sclera] Mouth: [no lip lesion], [mucus membranes moist] Cardiovascular: [S1S2 irregular Lungs: [CTA bilateral], diminished left lower basilar breath sounds] , [no accessory muscle use] Abdominal: [soft], [ nontender to palpation], [no guarding], [no appreciable o rganomegaly] Ext: [no gross muscle atrophy], [no edema], [no contractures] Neuro: [ CN II-XI grossly intact], [no focal neuro deficits] Psych: [Alert], [oriented], [appropriate affect] Data Reviewed Today: Pertinent Labs: No leukocytosis, hemoglobin stable 8.3, platelet count normal at 179, CMP with normal sodium, potassium, creatinine, bicarb 18, total albumin 2.8 Assessment and Plan: New onset A-fib with RVR, now in sinus -Cardiology consulted -Continued on Cardizem drip, added metoprolol XL 50 daily -TTE ordered, pending Acute on chronic chronic hypoxic respiratory failure secondary to COPD exacerbation, left lower lobe community-acquired pneumonia -Continue breathing treatment, added Symbicort -Pulmonology following -Continue vancomycin and cefepime 2 g every 8 hours SOT 215 -Increase Solu-Medrol to 60 mg every 6 hours Stage III NSCLC Intractable nausea secondary to above Dysphagia secondary to above, possible component of mass effect status post PEG tube 2 Hypoproteinemia, hypoalbuminemia secondary to above Chronic normocytic anemia -Continue IV Compazine -Per oncology, if she is able to wean off Cardizem, could continue RT early next week -Surgery on board -Anemia workup pending including iron panel, B12, folate -Nutrition consulted for tube feeding DVT ppx: Heparin drip Code status: DNR/DNI Anticipated discharge place: Pending clinical course Anticipated discharge time: Pending clinical course Objective - Vital Signs Vital signs: Vital Signs Temp 98.1 F 09/02/24 04:00 Pulse 90 09/02/24 12:46 Resp 22 09/02/24 12:46 BP 114/63 09/02/24 08:00 Pulse Ox 96 09/02/24 09:31 FiO2 Intake & Output 09/01/24 09/02/24 09/02/24 18:59 06:59 18:59 Intake Total 304.82 451.096 200 Output Total 1400 1400 Balance -1095.18 -948.904 200 Intake: IV 200 Intake, IV Titration 304.82 451.096 Amount Cefepime 2 gm In Sodium 100 Chloride 0.9% 100 ml @ 25 mls/hr IVPB Q8H [facility] Rx#: [id number] Diltiazem 125 mg In 125 Sodium Chloride 0.9% 100 ml @ 15 MG/HR 15 mls/hr IV .Q8H20M [facility] Rx#: [id number] Heparin Sod,Pork in 0.45% 179.82 101.096 NaCl 25,000 unit In 0.45 % NaCl 1 250ml.bag @ 12 UNITS/KG/HR 9.036 mls/hr IV .Q24H [facility] Rx#: [id number] Vancomycin 1,250 mg In 250 Sodium Chloride 0.9% 250 ml @ 125 mls/hr IVPB ONCE ONE Rx#:[id number] Output: Urine 1400 1400 Other: Voiding Method External Catheter External Catheter # Voids 3 - Labs CBC & Chem 7: 09/02/24 07:44 09/02/24 07:44 Labs: Abnormal Lab Results - Last 24 Hours (Table) 09/01/24 09/01/24 09/02/24 Range/Units 19:35 22:37 07:44 RBC 2.84 L (3.80-5.40) m/uL Hgb 8.3 L (11.4-16.0) gm/dL Hct 27.1 L (34.0-46.0) % MCHC 30.8 L (31.0-37.0) g/dL RDW 16.5 H (11.5-15.5) % Neutrophils # 8.7 H (1.3-7.7) k/uL Lymphocytes # 0.7 L (1.0-4.8) k/uL APTT 35.5 H (22.0-30.0) sec ABG pO2 77 L (83-108) mmHg ABG Total CO2 25 H (19-24) mmol/L Hemoglobin 8.5 L (11.4-16.0) gm/dL Carbon Dioxide (22-30) mmol/L Calcium (8.4-10.2) mg/dL Total Protein (6.3-8.2) g/dL Albumin (3.5-5.0) g/dL 09/02/24 Range/Units 07:44 RBC (3.80-5.40) m/uL Hgb (11.4-16.0) gm/dL Hct (34.0-46.0) % MCHC (31.0-37.0) g/dL RDW (11.5-15.5) % Neutrophils # (1.3-7.7) k/uL Lymphocytes # (1.0-4.8) k/uL APTT (22.0-30.0) sec ABG pO2 (83-108) mmHg ABG Total CO2 (19-24) mmol/L Hemoglobin (11.4-16.0) gm/dL Carbon Dioxide 18 L (22-30) mmol/L Calcium 7.5 L (8.4-10.2) mg/dL Total Protein 5.3 L (6.3-8.2) g/dL Albumin 2.8 L (3.5-5.0) g/dL
--- NOTE | 2024-09-02 14:19 | P.CNPUL ---
History of Present Illness Consult date: 09/02/24 Requesting physician: Renetta Sanz Reason for consult: dyspnea, abnormal CXR/CT Chief complaint: Shortness of breath, cough, congestion History of present illness: This is a 63-year-old female patient with a recent diagnosis of squamous cell lung cancer. She has undergone 11 radiation treatments here and 2 rounds of chemotherapy at [facility]. She presented here to the emergency room on August 31, 2024 with complaints of increasing shortness of breath, cough and congestion. She was also having difficulty in swallowing. She also was found to be in atrial fibrillation with a rapid ventricular response, currently in sinus. chest x-ray revealed development of a right midlung linear atelectasis. Known mediastinal mass. Right chest wall Mediport in place. Evidence of COPD. Count 10.1. Hemoglobin 8.3. Platelets 179. Sodium 137. Potassium 4.1. Bicarb 18. BUN 11. Creatinine 0.81. Glucose 99. She is seen today in consultation on the selective care unit. She is currently resting in bed. Awake and alert in mild respiratory distress. She is requiring 12 L high flow n billie cannula to maintain O2 saturations in the 90s. She is normally on home oxygen at 3 L. Arterial blood gases done yesterday on 60% FiO2 revealed a PaO2 of 77, pCO2 40, pH 7.38. She has a large mediastinal mass from her lung cancer compressing her esophagus causing dysphagia. She is undergoing PEG tube insertion today. Review of Systems REVIEW OF SYSTEMS: CONSTITUTIONAL: Denies any recent significant weight loss or weight gain. EYES: Denies change in vision. EARS, NOSE, MOUTH, THROAT: Positive for difficulty in swallowing. CARDIOVASCULAR: Denies chest pain, palpitations or syncopal episodes. RESPIRATORY: Positive for shortness of breath, cough, congestion no hemoptysis. GASTROINTESTINAL: Denies change in appetite, denies abdominal pain GENITOURINARY: Denies hematuria, denies infections. MUSKULOSKELETAL: Denies pain, denies swelling. INTEGUMENTARY: Denies rash, denies eczema. NEUROLOGICAL: Denies recent memory loss, no recent seizure activity. PSYCHIATRIC: Denies anxiety, denies depression. HEMATOLOGIC/LYMPHATIC: Denies anemia, denies enlarged lymph nodes. Past Medical History Past Medical History: Cancer, COPD, GERD/Reflux, Hearing Disorder / Deafness, Pneumonia, Skin Disorder Additional Past Medical History / Comment(s): psoriatic arthritis, right ear deaf, psoriasis hands feet. squmaous cell chest History of Any Multi-Drug Resistant Organisms: None Reported Past Surgical History: Back Surgery, Breast Surgery, Cholecystectomy, Joint Replacement, Orthopedic Surgery, Tubal Ligation Additional Past Surgical History / Comment(s): R hip replacement January 2024. 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, arthroscopy bilateral knees, left foot bone spur, ablation to back , injections to back, breast bx left, titanium tag, egd ,colonoscopy Past Anesthesia/Blood Transfusion Reactions: No Reported Reaction Additional Past Anesthesia/Blood Transfusion Reaction / Comment(s): no blood transfusion Past Psychological History: ADD/ADHD, Anxiety Smoking Status: Former smoker Past Alcohol Use History: Rare Past Drug Use History: None Reported Medications and Allergies Home Medications Medication Instructions Recorded Confirmed Type Albuterol Inhaler [Ventolin Hfa 2 puff INHALATION RT-Q4H PRN 02/04/24 08/31/24 History Inhaler] Amitriptyline HCl 25 mg PO HS 02/04/24 08/31/24 History Cetirizine HCl 10 mg PO HS 02/04/24 08/31/24 History Omeprazole 20 mg PO DAILY 02/04/24 08/31/24 History traMADol HCL 50 mg PO TID PRN 02/04/24 08/31/24 History Ipratropium-Albuterol Nebulize 3 ml INHALATION RT-QID PRN 07/13/24 08/31/24 History [Duoneb 0.5 mg-3 mg/3 ml Soln] L.acidoph,Paracasei, B.lactis 1 cap PO HS 07/13/24 08/31/24 History [Probiotic] Umeclidinium Brm/Vilanterol Tr 1 puff INHALATION RT-DAILY 07/13/24 08/31/24 History [Anoro Ellipta 62.5-25 Mcg INH] predniSONE 50 mg PO DAILY #10 tab 07/15/24 08/31/24 Rx Benzonatate [Tessalon Perle] 200 mg PO TID PRN 08/15/24 08/31/24 History Prochlorperazine [Compazine] 10 mg PO Q6H PRN 08/15/24 08/31/24 History ondansetron HCL [Zofran] 8 mg PO Q8HR PRN 08/15/24 08/31/24 History ALPRAZolam [Xanax] 0.5 mg PO BID PRN 08/31/24 08/31/24 History Ondansetron Odt [Zofran Odt] 8 mg PO Q8HR PRN 08/31/24 08/31/24 History oxyCODONE-APAP 5-325MG [Percocet 1 tab PO Q6HR PRN 08/31/24 08/31/24 History 5-325 mg] Allergies Allergy/AdvReac Type Severity Reaction Status Date / Time lactose Allergy Unknown Verified 08/31/24 17:08 mold Allergy Unknown Verified 08/31/24 17:08 nickel Allergy Rash/Hives Verified 08/31/24 17:08 NSAIDS (Non-Steroidal AdvReac ACID REFLUX Verified 08/31/24 17:08 Anti-Inflamma dust Allergy Unknown Uncoded 08/31/24 17:08 Physical Exam Vitals: Vital Signs Temp Pulse Pulse Resp BP Pulse Ox 09/02/24 12:46 90 22 09/02/24 12:34 90 22 09/02/24 09:45 88 20 09/02/24 09:31 86 20 96 09/02/24 08:00 83 20 114/63 93 L 09/02/24 04:00 98.1 F 87 20 95/50 93 L 09/02/24 01:19 20 90 L 09/02/24 01:05 98 F 89 20 106/63 86 L 09/01/24 22:43 94 L 09/01/24 21:03 18 95 09/01/24 20:08 20 97 09/01/24 20:00 22 88 L 09/01/24 19:59 24 78 L 09/01/24 19:58 97.7 F 101 H 22 121/54 76 L 09/01/24 15:30 97.3 F L 90 18 104/62 92 L Intake and Output 09/01/24 09/02/24 09/02/24 22:59 06:59 14:59 Intake Total 172.68 451.096 200 Output Total 650 750 Balance -477.32 -298.904 200 Intake: IV 200 Intake, IV Titration 172.68 451.096 Amount Cefepime 2 gm In Sodium 100 Chloride 0.9% 100 ml @ 25 mls/hr IVPB Q8H [facility] Rx#: [id number] Diltiazem 125 mg In 125 Sodium Chloride 0.9% 100 ml @ 15 MG/HR 15 mls/hr IV .Q8H20M [facility] Rx#: [id number] Heparin Sod,Pork in 0.45% 47.68 101.096 NaCl 25,000 unit In 0.45 % NaCl 1 250ml.bag @ 12 UNITS/KG/HR 9.036 mls/hr IV .Q24H [facility] Rx#: [id number] Vancomycin 1,250 mg In 250 Sodium Chloride 0.9% 250 ml @ 125 mls/hr IVPB ONCE ONE Rx#:[id number] Output: Urine 650 750 Other: Voiding Method External Catheter External Catheter # Voids 3 GENERAL EXAM: Alert, 63-year-old female, on 12 L high flow nasal cannula, fairly comfortable in no apparent distress. HEAD: Normocephalic. EYES: Normal reaction of pupils, equal size. NOSE: Clear with pink turbinates. THROAT: No erythema or exudates. NECK: No masses, no JVD. CHEST: No chest wall deformity. LUNGS: Equal air entry with crackles in the left lung base. CVS: S1 and S2 normal with no audible murmur, regular rhythm. ABDOMEN: No hepatosplenomegaly, normal bowel sounds, no guarding or rigidity. SPINE: No scoliosis or deformity SKIN: No rashes CENTRAL NERVOUS SYSTEM: No focal deficits, tone is normal in all 4 extremities. EXTREMITIES: There is no peripheral edema. No clubbing, no cyanosis. Peripheral pulses are intact. Results - Laboratory Findings CBC and BMP: 09/02/24 07:44 09/02/24 07:44 ABG ABG pH 7.38 (7.35-7.45) 09/01/24 22:37 ABG pCO2 40 mmHg (35-45) 09/01/24 22:37 ABG pO2 77 mmHg (83-108) L 09/01/24 22:37 ABG O2 Saturation 95.6 % (94-97) 09/01/24 22:37 PT/INR, D-dimer PT 13.2 sec (10.0-12.5) H 08/31/24 15:44 INR 1.2 (<1.2) H 08/31/24 15:44 Abnormal lab findings: Abnormal Labs 08/31/24 08/31/24 08/31/24 15:44 15:44 15:44 RBC 2.87 L Hgb 8.3 L D Hct 26.2 L MCHC RDW 16.7 H Neutrophils # Lymphocytes # 0.7 L PT 13.2 H INR 1.2 H APTT 20.0 L ABG pO2 ABG Total CO2 Hemoglobin Carbon Dioxide Glucose 100 H Calcium 8.0 L Total Protein 5.4 L Albumin 2.9 L HDL Cholesterol 08/31/24 09/01/24 09/01/24 18:47 06:39 06:39 RBC 2.77 L 2.74 L Hgb 8.3 L 8.1 L Hct 26.3 L 25.5 L MCHC RDW 16.7 H 16.8 H Neutrophils # Lymphocytes # 0.8 L 0.8 L PT INR APTT ABG pO2 ABG Total CO2 Hemoglobin Carbon Dioxide Glucose Calcium Total Protein Albumin HDL Cholesterol 31.80 L 09/01/24 09/01/24 09/02/24 19:35 22:37 07:44 RBC 2.84 L Hgb 8.3 L Hct 27.1 L MCHC 30.8 L RDW 16.5 H Neutrophils # 8.7 H Lymphocytes # 0.7 L PT INR APTT 35.5 H ABG pO2 77 L ABG Total CO2 25 H Hemoglobin 8.5 L Carbon Dioxide Glucose Calcium Total Protein Albumin HDL Cholesterol 09/02/24 07:44 RBC Hgb Hct MCHC RDW Neutrophils # Lymphocytes # PT INR APTT ABG pO2 ABG Total CO2 Hemoglobin Carbon Dioxide 18 L Glucose Calcium 7.5 L Total Protein 5.3 L Albumin 2.8 L HDL Cholesterol - Diagnostic Findings Chest x-ray: image reviewed Assessment and Plan Assessment: New onset ventricular response, currently on a Cardizem drip at 5 mg an hour, currently in sinus Intractable nausea Recent diagnosis 07/27/2024 of 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 status post 11 rounds of radiation here and 2 rounds of chemotherapy in [place] Chronic obstructive pulmonary disease Hearing disorder Psoriatic arthritis Former smoker History of anxiety History of ADHD Plan: The patient was seen and evaluated Chest x-ray, labs and medications reviewed Currently on 12 L high flow nasal cannula Titrate down the FiO2 as tolerated Continue cefepime and vancomycin Continue DuoNeb inhalations, Symbicort, Solu-Medrol Plan is for possible PEG tube placement today Remains on a Cardizem drip, currently sinus rhythm Cardiology is following as well Prognosis remains guarded We will continue to follow and make further recommendations based on her clinical status I have personally seen and examined the patient, performed the documentation and the assessment and plan as written. Number of minutes spent on the visit: 20 Dictation was produced using [employer] dictation software. Please excuse any grammatical, word or spelling errors.
--- NOTE | 2024-09-02 14:20 | CA ---
Transthoracic Echo Report Name: Britany Blount Age: 63 Gender: F : 1960 Exam Date: 09/01/2024 09:40 Exam Location: [facility] Ht (in): 67 Wt (lb): 166 Ordering Physician: Christina Joyner Attending/Referring Phys: [id number], Anya Lead Technician Lisandra Villeda RDCS Procedure CPT: Indications: Pericardial effusion, compression of mass on LA Cardiac Hx: Technical Quality: Fair Contrast 1: Total Dose (mL): Contrast 2: Total Dose (mL): MEASUREMENTS (Male / Female) Normal Values 2D ECHO LV Diastolic Diameter PLAX 5.2 cm 4.2 - 5.9 / 3.9 - 5.3 cm LV Systolic Diameter PLAX 3.4 cm IVS Diastolic Thickness 0.9 cm 0.6 - 1.0 / 0.6 - 0.9 cm LVPW Diastolic Thickness 1.0 cm 0.6 - 1.0 / 0.6 - 0.9 cm LV Relative Wall Thickness 0.4 RV Internal Dim ED PLAX 2.6 cm LA Systolic Diameter LX 3.9 cm 3.0 - 4.0 / 2.7 - 3.8 cm LA Volume 55.6 cm??? 18 - 58 / 22 - 52 cm??? LA Volume Index 29.3 cm???/m??? 16 - 28 cm???/m??? M-MODE Aortic Root Diameter MM 2.3 cm DOPPLER AV Peak Velocity 131.2 cm/s AV Peak Gradient 6.9 mmHg MV Area PHT 5.6 cm??? MV Deceleration Time 148.5 ms TR Peak Velocity 283.3 cm/s TR Peak Gradient 32.1 mmHg Right Ventricular Systolic Press 36.9 mmHg FINDINGS Left Ventricle Left ventricular ejection fraction is estimated at 55-60 %. Left ventricular cavity size normal. Left ventricular wall thickness normal. No obvious regional wall motion abnormalities. Right Ventricle Normal right ventricular size and function. Mild pulmonary hypertension. Right Atrium Normal right atrial size. No right atrial thrombus or mass seen. Left Atrium Normal left atrial size. No left atrial thrombus or mass present. Mitral Valve Structurally normal mitral valve. Trace to mild mitral regurgitation. Aortic Valve Trileaflet aortic valve. No aortic valve stenosis or regurgitation. Tricuspid Valve Structurally normal tricuspid valve. Mild tricuspid regurgitation. Pulmonic Valve Structurally normal pulmonic valve. Trace pulmonic regurgitation. Pericardium Trace pericardial effusion Aorta Normal size aortic root and proximal ascending aorta. CONCLUSIONS LVEF 55% Hyperdynamic LV. No obvious regional wall motion abnormality Mild mitral regurgitation Normal RV size and systolic function Trace pericardial effusion No obvious intracardiac mass or external compression of cardiac structures appreciated however the quality of the study was limited because of poor acoustic windows Previewed by: Dr Pedro Brown (Electronically Signed) Final Date: 02 September 2024 14:19
[2024-09-02] MEDS ORDERED: VANCOMYCIN 1,250 MG in SODIUM CHLORIDE 0.9% 250 ML IVPB SCH (15:00)
[2024-09-02] MEDS ORDERED: BENZONATATE 100 MG CAP PO PRN (15:42)
--- NOTE | 2024-09-02 16:13 | P.CN ---
Psychiatric Consult - . Consult date: 09/02/24 Consult:: Dictation was produced using [employer] dictation software. Please excuse any grammatical, word or spelling errors. IDENTIFYING DATA: This patient is a 63 years old female with no past psychiatric history, and past medical history of mediastinal squamous cell carcinoma stage IIIa, and chronic COPD, presented to the ED with a complaint of dysphagia, nausea, vomiting, and weakness. REASON FOR REFERRAL: Psychiatry was consulted for depression, esophageal cancer, and per nursing staff for capacity assessment HISTORY OF PRESENT ILLNESS: The patient presented to the hospital per recommendation from her oncologist for weakness, and dysphagia. Patient has been having difficulty swallowing and is barely able to swallow liquid. The patient agreed with the primary team to proceeding with hospice care however her family was highly encouraging for continuing treatment. Upon evaluation today the patient was in her room, family at bedside, family left during assessment and stayed at bedside per patient request. The patient states that she came to the hospital per recommendation from her oncologist since she was weak and she could not swallow. States that initially she thought her only option is to go to hospice however after spoke with her family she changed her mind and reported that she wanted to do everything to stay alive. She states that "I understand what is going on with me, I have squamous cell carcinoma in the lung and have been taking chemotherapy." The patient reported that " I understand that I can go when it is my time." The patient reported that she did not have enough information about the PEG tube and reported that her family explained to her the benefit of it and she agreed to the procedure. The patient was able to provide understanding of her prognosis and diagnosis. She denied any current suicidal, self-harm or homicidal thoughts or behavior, reported that she gets depressed at times giving her current diagnosis. Denied any previous suicidal history. Denied any current auditory or visual hallucination. Reported that she use to smoke heavily in the past however stopped, denied any cannabis, alcohol or any other substance usage. The patient was oriented to time, place and person, was able to verbalize that she is at [facility], was able to call the date and the president of [facility]. She reported that she does not feel she needs any medication to help with depression and anxiety at this time. The patient does have capacity to make her own medical decisions. PAST PSYCHIATRIC HISTORY: - Inpatient Hospitalizations: Patient denies - Outpatient Care: Patient denies - Current Psychotropics: None currently - Prior Psychotropics/Therapy: Amitriptyline 25 mg in the past - Prior Psychiatric dx: Patient denies any previous psychiatric history - Suicidal Attempts: Patient denies PAST MEDICAL HISTORY: Past Medical History: Cancer, COPD, GERD/Reflux, Hearing Disorder / Deafness, Pneumonia, Skin Disorder Additional Past Medical History / Comment(s): psoriatic arthritis, right ear deaf, psoriasis hands feet. squmaous cell chest History of Any Multi-Drug Resistant Organisms: None Reported Past Surgical History: Back Surgery, Breast Surgery, Cholecystectomy, Joint Replacement, Orthopedic Surgery, Tubal Ligation Additional Past Surgical History / Comment(s): R hip replacement January 2024. 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 CHEMICAL DEPENDENCY HISTORY: Patient reported that she used to smoke in the past, stopped last June. Denied any alcohol, cannabis or any other substance usage. FAMILY PSYCHIATRIC/SUBSTANCE USE HISTORY: denies SOCIAL HISTORY: Patient was born in [place], adopted and moved to [place] when she was 4 years old, raised in [place]. She is to her for 21 years, has 3 children. No legal history. MENTAL STATUS EXAM: General Appearance: Patient appears to be stated age is alert, pleasant, and cooperative. Patient appears to have fair hygiene and grooming wearing hospital gown with fair eye contact. Behavior: Patient is calmly lying in bed without any agitated behavior. Patient at bedside Speech: Patient's speech is fluent and nonpressured. Mood/Affect: Patient reports their mood is "fine", affect is pleasant, mood congruent Suicidality/Homicidality: Patient denies having any suicidal or homicidal ideation intent or plan. Perceptions: Patient denies any visual hallucinations and denies any auditory hallucinations Though content/process: There is no evidence of any delusional thought content and thought process is linear and goal-directed. Memory and concentration: AOX3, grossly intact for the purposes of this session. Can spell "WORLD" backwards Judgment and insight: Fair IMPRESSIONS: Adjustment disorder, unspecified Patient has decision-making capacity Hearing disorder History of anxiety PLAN: -At this time patient DOES NOT meet criteria for inpatient psychiatric admission. -Patient DOES have decision making capacity at this time and is able to reason through and communicate/appreciate the risks, benefits and alternatives to treatment. -Continue current care as per primary team -May consider antidepressant in the future on outpatient basis -Communicated plan to patient's nurse -Psychiatry will sign off at this time -Please contact with any questions. 09/02/24 13:52 09/02/24 15:55
[2024-09-02] MEDS: METOPROLOL SUCCINATE (ER) 50 MG TAB.ER.24H PO SCH (17:52)
[2024-09-02] MEDS: ALPRAZolam 0.5 MG TAB PO PRN (17:52)
[2024-09-02] MEDS: SYMBICORT 160-4.5 MCG INHALER INHALATION SCH (20:17)
[2024-09-02] MEDS: AMITRIPTYLINE HCL 25 MG TAB PO SCH (21:20)
[2024-09-02] MEDS: LORATADINE 10 MG TAB PO SCH (21:21)
[2024-09-02] MEDS: DILTIAZEM 125 MG in SODIUM CHLORIDE 0.9% 100 ML IV SCH (21:40)
[2024-09-03] MEDS: APIXABAN 5 MG TAB PO SCH (08:06)
[2024-09-03 08:32] LABS: ALT 21 U/L (4-34); AST 15 U/L (14-36); African American GFR (CKD) >90 (>60 ml/min/1.73 sqM); Albumin 2.8 g/dL (3.5-5.0); Alkaline Phosphatase 92 U/L (38-126); Anion Gap 13 mmol/L; Blood Urea Nitrogen 16 mg/dL (7-17); Carbon Dioxide 20 mmol/L (22-30); Chloride 105 mmol/L (98-107); Glucose 143 mg/dL (74-99); Magnesium 1.8 mg/dL (1.6-2.3); Non-African American GFR(CKD) 87 (>60 ml/min/1.73 sqM); Potassium 4.3 mmol/L (3.5-5.1); Sodium 138 mmol/L (137-145); Total Bilirubin 0.8 mg/dL (0.2-1.3); Total Protein 5.4 g/dL (6.3-8.2)
[2024-09-03 08:44] LABS: Anisocytosis Slight; Basophils % (A) 0 %; Eosinophils % (A) 0 %; HCT 23.9 % (34.0-46.0); HGB 7.5 gm/dL (11.4-16.0); Hypochromasia Marked; Lymphocytes # (A) 0.2 k/uL (1.0-4.8); Lymphocytes % (A) 2 %; MCHC 31.3 g/dL (31.0-37.0); MCV 95.9 fL (80.0-100.0); Macrocytosis Slight; Mean Platelet Volume 8.8; Monocytes # (A) 0.3 k/uL (0-1.0); Monocytes % (A) 3 %; Neutrophils # (A) 9.7 k/uL (1.3-7.7); Neutrophils % (A) 94 %; Platelet Count 146 k/uL (150-450); RBC 2.49 m/uL (3.80-5.40); WBC 10.3 k/uL (3.8-10.6)
--- NOTE | 2024-09-03 09:46 | XR ---
EXAMINATION TYPE: XR chest 1V portable DATE OF EXAM: 09/03/2024 9:22 AM COMPARISON: Chest radiographs from CLINICAL INDICATION: Female, 63 years old with history of follow up developping pneumonia vs atelecta sis; [facility] TECHNIQUE: XR chest 1V portable Frontal view of the chest. FINDINGS: Lungs/Pleura: e improved aeration of the left lung base on today's exam. There remains right midlung flat like atelectasis and medial right upper lung There is no evidence of pleural effusion, focal con solidation, or pneumothorax. Pulmonary vascularity: Unremarkable. Heart/mediastinum: Cardiomediastinal silhouette is unremarkable. Musculoskeletal: No acute osseous pathology. Right chest wall [id number] with tip in appropriate position. IMPRESSION: Improved aeration of the left lung base with focal flat right midlung atelectasis and right upper med ial airspace opacities. [facility], , 09/03/2024 9:44 AM
--- NOTE | 2024-09-03 12:00 | P.PN ---
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 Wooten in [facility] and Dr. Robledo in [place], chronic hypoxic respiratory failure secondary to COPD on 2 L of nasal cannula, who presented to the ED after she was encouraged to come here by her oncologist.She was supposed to receive her third round of chemo today however she has been very weak and was advised to come here and potentially get a PEG tube placed. She has been having increased difficulty swallowing and now is barely able to swallow liquids. She has also increased her oxygen requirements over the last week. She used to be on 2 L but for the last week has been requiring 3 L. She has been "coughing up bile" with an episode of hemoptysis about a week or two ago post radiation. The hemoptysis has resolved. Patient denying recent fever, abdominal pain, chest pain. She reports chills, severe fatigue, cough productive of a green-omar sputum (reported as "bile"), chest pressure, severe nausea, one episode of vomiting yesterday, dyspnea. Patient reports that IV Compazine is only thing that helps with her nausea. After the patient's left the room, the patient expressed a desire to be on hospice and to be a DNR/DNI stating that she wanted to fight at first but no longer has the energy to. patient was tachycardia, EKG showed A-fib with RVR, she was given Cardizem, started on IV heparin, cardiology consulted. Recommended to continue Cardizem, TTE ordered.EF 55%, trace pericardial effusion, mild mitral regurg, no obvious intracardiac mass or external compression of cardiac structures Hospice consult was placed, patient found that she would feel comfortably proceeding with hospice care although her family at bedside was highly encouraging to continue the treatment. Heme-onc consulted, general surgery consulted for PEG, cardiology consulted for new onset A-fib. Patient was seen by surgical team in the morning, declined any procedures done, later requested to be reevaluated per family request. PEG tube was placed on 09/02, no RD available over the weekend, patient was started on Jevity 1.5 at 10 cc/h 09/01 in the evening patient developed worsening SOB, chest x-ray was done and showed left lower lobe pneumonia or atelectasis, patient was started on cefepime and vancomycin, was given IV Lasix with symptoms improvement. Pulmonology consulted, patient continued on antibiotics, added Solu-Medrol, breathing treatment continued. 09/03: A-fib RVR, heart rate in 130s, BP soft with MAP of 68, now on high flow nasal cannula 9 L. Chest x-ray repeated, improved aeration of the left lung base with focal plateau right midlung contact this is in the right upper medial airspace opacities. Subjective: Patient was seen and examined at bedside patient's present during exam. She is complaining of persistent cough that started this morning and became worse after she had to take a deep breath for chest x-ray, she has been up more phlegm but feels that she still has a lot to bring up. Pertinent positives and negatives as discussed above, a complete review of systems was performed and all other systems are negative. Vitals Signs Reviewed. General: , ill-appearing Derm: [warm], [dry] Head: [atraumatic], [normocephalic], [symmetric] Eyes: [EOMI], [no lid lag], [anicteric sclera] Mouth: [no lip lesion], [mucus membranes moist] Cardiovascular: [S1S2 irregular, tachycardic Lungs: [CTA bilateral], diminished left lower basilar breath sounds] , [no accessory muscle use] Abdominal: [soft], [ nontender to palpation], [no guarding], [no appreciable organomegaly] Ext: [no gross muscle atrophy], [no edema], [no contractures] Neuro: [ CN II-XI grossly intact], [no focal neuro deficits] Psych: [Alert], [oriented], [appropriate affect] Data Reviewed Today: Pertinent Labs: No leukocytosis, hemoglobin stable 7.5, platelet count 146, CMP with normal sodium, potassium, creatinine, bicarb 20, total albumin 2.8 Assessment and Plan: New onset A-fib with RVR -Cardiology consulted -Continued on Cardizem drip, added metoprolol XL 50 daily -TTE ordered, EF 55%, trace pericardial effusion, mild mitral regurg, no obvious intracardiac mass or external compression of cardiac structures Acute on chronic hypoxic respiratory failure secondary to COPD exacerbation, left lower lobe community-acquired pneumonia -Continue breathing treatment, added Symbicort -Pulmonology following -Continue vancomycin and cefepime 2 g every 8 hours SOT 09/02 - Solu-Medrol to 60 mg every 6 hours -lasix 40 IV once 09/03 Stage III NSCLC Intractable nausea secondary to above Dysphagia secondary to above, possible component of mass effect status post PEG tube 09/02 Hypoproteinemia, hypoalbuminemia secondary to above Chronic normocytic anemia -Continue IV Compazine -Per oncology, if she is able to wean off Cardizem, could continue RT early next week -Surgery on board -Nutrition consulted for tube feeding, not available over the weekend, started on Jevity 1.5 at 10 cc/h -Phosphorus level sordered DVT ppx: Heparin drip Code status: full code Anticipated discharge place: Pending clinical course Anticipated discharge time: Pending clinical course Objective - Vital Signs Vital signs: Vital Signs Temp 97.6 F 09/03/24 08:00 Pulse 130 H 09/03/24 11:20 Resp 20 09/03/24 11:20 BP 95/55 09/03/24 11:20 Pulse Ox 90 L 09/03/24 11:20 FiO2 Intake & Output 09/02/24 09/03/24 09/03/24 18:59 06:59 18:59 Intake Total 200 Output Total 400 Balance 200 -400 Weight 45.5 kg Intake: IV 200 Output: Urine 400 Other: Voiding Method External Catheter # Voids 3 - Labs CBC & Chem 7: 09/03/24 07:52 09/03/24 07:52 Labs: Abnormal Lab Results - Last 24 Hours (Table) 09/03/24 09/03/24 Range/Units 07:52 07:52 RBC 2.49 L (3.80-5.40) m/uL Hgb 7.5 L (11.4-16.0) gm/dL Hct 23.9 L (34.0-46.0) % RDW 17.0 H (11.5-15.5) % Plt Count 146 L (150-450) k/uL Neutrophils # 9.7 H (1.3-7.7) k/uL Lymphocytes # 0.2 L (1.0-4.8) k/uL Carbon Dioxide 20 L (22-30) mmol/L Glucose 143 H (74-99) mg/dL Calcium 8.0 L (8.4-10.2) mg/dL Total Protein 5.4 L (6.3-8.2) g/dL Albumin 2.8 L (3.5-5.0) g/dL
[2024-09-03] MEDS: LORazepam 2 MG/ML INJ IV STA (12:12)
[2024-09-03] MEDS: FUROSEMIDE 10 MG/ML 4 ML VIAL IV STA (12:12)
--- NOTE | 2024-09-03 12:17 | P.PN ---
Subjective Progress Note Date: 09/03/24 Principal diagnosis: Shortness of breath, difficulty swallowing. This is a 63-year-old female patient with a recent diagnosis of squamous cell lung cancer. She has undergone 11 radiation treatments here and 2 rounds of chemotherapy at [facility]. She presented here to the emergency room on August 31, 2024 with complaints of increasing shortness of breath, cough and congestion. She was also having difficulty in swallowing. She also was found to be in atrial fibrillation with a rapid ventricular response, currently in sinus. chest x-ray revealed development of a right midlung linear atelectasis. Known mediastinal mass. Right chest wall Mediport in place. Evidence of COPD. Count 10.1. Hemoglobin 8.3. Platelets 179. Sodium 137. Potassium 4.1. Bicarb 18. BUN 11. Creatinine 0.81. Glucose 99. She is seen today in consultation on the selective care unit. She is currently resting in bed. Awake and alert in mild respiratory distress. She is requiring 12 L high flow nasal cannula to maintain O2 saturations in the 90s. She is normally on home oxygen at 3 L. Arterial blood gases done yesterday on 60% FiO2 revealed a PaO2 of 77, pCO2 40, pH 7.38. She has a large mediastinal mass from her lung cancer compressing her esophagus causing dysphagia. She is undergoing PEG tube insertion today. Progress note dated September 03, 2024. 63-year-old female seen yesterday in consultation. The patient has a history of recently diagnosed squamous cell carcinoma of the lung. The patient has had 11 radiation treatments, 2 cycles of chemotherapy. She gets her radiation here, and her chemotherapy, at [facility]. The patient comes into the hospital, with complaints of shortness of breath, chest congestion, cough, difficulty swallowing. Yesterday, the patient had an EGD and PEG tube placed by surgery. The patient is currently not on any fluids. She is getting high flow oxygen, at 10 L. She continues on cefepime and vancomycin. Current laboratory data includes a white count 10.3, hemoglobin 7.5, hematocrit 23.9, platelet count 246,000. Sodium 138, potassium 4.3, chlorides 105, CO2 20, BUN 16, creatinine 0.74. Glucose is 143. Calcium 8. Albumin 2.8. Procalcitonin level 0.32. Objective - Vital Signs Vital signs: Vital Signs Temp 97.6 F 09/03/24 08:00 Pulse 130 H 09/03/24 11:20 Resp 20 09/03/24 11:20 BP 95/55 09/03/24 11:20 Pulse Ox 90 L 09/03/24 11:20 FiO2 Intake & Output 09/02/24 09/03/24 09/03/24 18:59 06:59 18:59 Intake Total 200 Output Total 400 Balance 200 -400 Weight 45.5 kg Intake: IV 200 Output: Urine 400 Other: Voiding Method External Catheter # Voids 3 - Exam No acute distress, oriented 3. Currently on 10 L high flow O2. The patient does have a frequent cough. HEENT examination is grossly unremarkable. Mucous membranes are moist. No oral lesions. Neck supple. Full range of motion. No adenopathy thyromegaly or neck vein distention. Cardiovascular examination reveals regular rhythm rate. S1-S2 normal. No S3 or S4. No discernible murmur noted. Lungs reveal bilateral inspiratory and expiratory rhonchi and wheezes. Breath sounds are diminished. Cough is wet and congested. No crackles. Breath sounds are equal bilaterally. Abdomen soft bowel sounds are heard. No masses or tenderness. PEG tube is noted. Extremities are intact. No cyanosis clubbing or edema. Skin is without rash or lesion. Neurologic examination is brief but nonfocal. - Labs CBC & Chem 7: 09/03/24 07:52 09/03/24 07:52 Labs: Abnormal Lab Results - Last 24 Hours (Table) 09/03/24 09/03/24 Range/Units 07:52 07:52 RBC 2.49 L (3.80-5.40) m/uL Hgb 7.5 L (11.4-16.0) gm/dL Hct 23.9 L (34.0-46.0) % RDW 17.0 H (11.5-15.5) % Plt Count 146 L (150-450) k/uL Neutrophils # 9.7 H (1.3-7.7) k/uL Lymphocytes # 0.2 L (1.0-4.8) k/uL Carbon Dioxide 20 L (22-30) mmol/L Glucose 143 H (74-99) mg/dL Calcium 8.0 L (8.4-10.2) mg/dL Total Protein 5.4 L (6.3-8.2) g/dL Albumin 2.8 L (3.5-5.0) g/dL Assessment and Plan Assessment: New onset atrial fibrillation with rapid ventricular response, resolved. Intractable nausea. Recent diagnosis 07/27/2024 of 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 status post 11 rounds of radiation here and 2 rounds of chemotherapy. Chronic obstructive pulmonary disease. Hearing disorder. Psoriatic arthritis. Former smoker. History of anxiety. History of ADHD. Plan: Plan dated September 03, 2024. The patient is seen today in room 375. She is currently on 10 L high flow nasal O2. The patient had EGD, with PEG tube placement, yesterday, September 02. She is not receiving any IV fluids. She continues on cefepime and Vancomycin, despite a normal procalcitonin level. All labs, x-rays, and medications are reviewed. We will continue to follow with patient, make recommendations along the way. 50 minutes was spent with this patient, which included time obtaining additional history, examining the patient, reviewing pertinent laboratory data, x-rays, medications, as well as discussing the diagnosis, treatment, prognosis, with the patient, the patient's , and her nursing staff. Dictation was produced using [employer] dictation software. Please excuse any grammatical, word or spelling errors. Time with Patient: Greater than 30
--- NOTE | 2024-09-03 13:38 | P.PN ---
Progress Note - Text Progress Note Date: 09/03/24 Patient seen and examined. No acute events overnight. VSS General-NAD Abdomen-soft. NTND 63 year old female s/p EGD with PEG insertion -ok to start trickle feeds David Pak DO [facility] [phone]
--- NOTE | 2024-09-03 16:34 | P.PN ---
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 She has a past medical history of squamous cell carcinoma of the mediastinum stage IIIa followed by oncologist in [facility] status post 11 radiation treatments in [place] and 2 chemo treatments and [facility]. Also history of COPD, chronic hypoxic respiratory failure on home O2 at 3 L nasal cannula. Patient was due for her third round of chemotherapy yesterday, but due to significant weakness, this was postponed until next week. Patient apparently was advised to go to the hospital for PEG tube placement. Patient is unable to take any oral medications at this time. We have been asked to evaluate the patient for A-fib with RVR. Patient has been started on Cardizem drip at 5 mg/h. She is currently running 160 bpm. Apparently patient has expressed desire to be hospice and DNR. Patient's is at the bedside and a daughter is on the phone and all questions have been answered. Daughter is very concerned that her pain issue is not being addressed and this has been referred to attending. Also daughter inquired about cardioversion which it was not advised at this time. Plan is for rate control management of the atrial fibrillation. Blood pressure 104/64, heart rate 160 on telemetry, pulse ox 96% on 4 L nasal cannula. -EKG: Atrial fibrillation 154 bpm, #2 atrial fibrillation with ventricular rate of 161. -Chest x-ray: Right midlung linear atelectasis. Known mediastinal mass. Right chest wall Mediport. COPD. -Laboratory studies: WBC 7.8, hemoglobin 8.3, platelet count 164. Troponin negative x 2. Electrolytes and renal function are normal. -Home cardiac medications: None Progress Notes 09/02/2024 Patient seen and examined at bedside this a.m. Patient converted out of atrial fibrillation. She is feeling much less short of breath, denies any chest pain chest pressure. Appears euvolemic. Physical examination: Gen: This is a 63-year-old female VS: reviewed HEENT: Head is atraumatic, normocephalic. Pupils equal, round. Sclerae is anicteric. NECK: Supple. No JVD. LUNGS: Clear to auscultation. No wheezes or rhonchi. No intercostal retractions. HEART: Irregular rate and rhythm. No murmur. ABDOMEN: Soft No tenderness. Reported diarrhea. EXTREMITIES: No pedal edema. No calf tenderness. NEUROLOGICAL: Patient is awake, alert and oriented x3. Assessment: New onset paroxysmal atrial fibrillation with RVR, present on admission, currently sinus rhythm. Squamous cell carcinoma of the mediastinum stage IIIa COPD Chronic hypoxic respiratory failure on home O2 at 3 L nasal cannula Anemia Pertinent cardiac testing Echo shows EF of 45%, hyperdynamic LV, No obvious regional wall motion abnormality, mild MR, no obvious intracardiac or extracardiac impression of cardiac structures however quality of the study was limited. Plan: Continue metoprolol 50 mg daily. Discontinue Cardizem drip. If patient goes back into A-fib, restart Cardizem. Discontinue heparin drip and start Eliquis 5 mg twice daily. No intracardiac or extracardiac impression defect in cardiac function appreciated on the transthoracic echo. If high clinical suspicion, consider cardiac MRI. Objective - Vital Signs Vital signs: Vital Signs Temp 97.6 F 09/03/24 08:00 Pulse 130 H 09/03/24 14:00 Resp 20 09/03/24 14:00 BP 95/55 09/03/24 11:20 Pulse Ox 90 L 09/03/24 11:20 FiO2 Intake & Output 09/02/24 09/03/24 09/03/24 18:59 06:59 18:59 Intake Total 200 125 Output Total 400 1100 Balance 200 -400 -975 Weight 45.5 kg Intake: IV 200 Intake, IV Titration 125 Amount Diltiazem 125 mg In 125 Sodium Chloride 0.9% 100 ml @ 15 MG/HR 15 mls/hr IV .Q8H20M [facility] Rx#: [id number] Output: Urine 400 1100 Other: Voiding Method External Catheter # Voids 3 - Labs CBC & Chem 7: 09/03/24 07:52 09/03/24 07:52 Labs: Abnormal Lab Results - Last 24 Hours (Table) 09/03/24 09/03/24 Range/Units 07:52 07:52 RBC 2.49 L (3.80-5.40) m/uL Hgb 7.5 L (11.4-16.0) gm/dL Hct 23.9 L (34.0-46.0) % RDW 17.0 H (11.5-15.5) % Plt Count 146 L (150-450) k/uL Neutrophils # 9.7 H (1.3-7.7) k/uL Lymphocytes # 0.2 L (1.0-4.8) k/uL Carbon Dioxide 20 L (22-30) mmol/L Glucose 143 H (74-99) mg/dL Calcium 8.0 L (8.4-10.2) mg/dL Total Protein 5.4 L (6.3-8.2) g/dL Albumin 2.8 L (3.5-5.0) g/dL
--- NOTE | 2024-09-03 17:03 | P.PN ---
Subjective Progress Note Date: 09/03/24 This is a 63-year-old female with no previous cardiac history and does not follow with a office rep. She has a past medical history of squamous cell carcinoma of the mediastinum stage IIIa followed by oncologist in [facility] status post 11 radiation treatments in [place] and 2 chemo treatments and [facility]. Also history of COPD, chronic hypoxic respiratory failure on home O2 at 3 L nasal cannula. Patient was due for her third round of chemotherapy yesterday, but due to significant weakness, this was postponed until next week. Patient apparently was advised to go to the hospital for PEG tube placement. Patient is unable to take any oral medications at this time. We have been asked to evaluate the patient for A-fib with RVR. Patient has been started on Cardizem drip at 5 mg/h. She is currently running 160 bpm. Apparently patient has expressed desire to be hospice and DNR. Patient's is at the bedside and a daughter is on the phone and all questions have been answered. Daughter is very concerned that her pain issue is not being addressed and this has been referred to attending. Also daughter inquired about cardioversion which it was not advised at this time. Plan is for rate control management of the atrial fibrillation. Blood pressure 104/64, heart rate 160 on telemetry, pulse ox 96% on 4 L nasal cannula. -EKG: Atrial fibrillation 154 bpm, #2 atrial fibrillation with ventricular rate of 161. -Chest x-ray: Right midlung linear atelectasis. Known mediastinal mass. Right chest wall Mediport. COPD. -Laboratory studies: WBC 7.8, hemoglobin 8.3, platelet count 164. Troponin negative x 2. Electrolytes and renal function are normal. -Home cardiac medications: None Progress Notes 09/02/2024 Patient seen and examined at bedside this a.m. Patient converted out of atrial fibrillation. She is feeling much less short of breath, denies any chest pain chest pressure. Appears euvolemic. 09/03/2024 Patient is seen and examined at bedside this a.m. Patient went back into atrial fibrillation after the G-tube placement. Currently she is in atrial fibrill ation RVR with heart rate around 130s. I will increase her beta-priyank and continue Cardizem drip. Physical examination: Gen: This is a 63-year-old female VS: reviewed HEENT: Head is atraumatic, normocephalic. Pupils equal, round. Sclerae is anicteric. NECK: Supple. No JVD. LUNGS: Clear to auscultation. No wheezes or rhonchi. No intercostal retractions. HEART: Irregular rate and rhythm. No murmur. ABDOMEN: Soft No tenderness. Reported diarrhea. EXTREMITIES: No pedal edema. No calf tenderness. NEUROLOGICAL: Patient is awake, alert and oriented x3. Assessment: New onset paroxysmal atrial fibrillation with RVR, present on admission, currently sinus rhythm. Squamous cell carcinoma of the mediastinum stage IIIa COPD Chronic hypoxic respiratory failure on home O2 at 3 L nasal cannula Anemia Pertinent cardiac testing Echo shows EF of 45%, hyperdynamic LV, No obvious regional wall motion abnormality, mild MR, no obvious intracardiac or extracardiac impression of cardiac structures however quality of the study was limited. Plan: Increase metoprolol to 50 mg twice daily. Continue Cardizem drip. Continue Eliquis 5 mg twice daily At this time patient's daughter is very apprehensive that patient is not receiving radiation therapy. Radiation cannot be done with patient being on IV drips. If rate control fails tomorrow or patient does not convert back to sinus, consider adding digoxin load. No intracardiac or extracardiac impression defect in cardiac function appreciate d on the transthoracic echo. If high clinical suspicion, consider cardiac MRI. Because of esophageal cancer, I would refrain from performing a JOSE MARTIN at present Objective - Vital Signs Vital signs: Vital Signs Temp 97.6 F 09/03/24 08:00 Pulse 90 09/03/24 17:02 Resp 20 09/03/24 14:00 BP 95/55 09/03/24 11:20 Pulse Ox 90 L 09/03/24 11:20 FiO2 Intake & Output 09/02/24 09/03/24 09/03/24 18:59 06:59 18:59 Intake Total 200 125 Output Total 400 1100 Balance 200 -400 -975 Weight 45.5 kg Intake: IV 200 Intake, IV Titration 125 Amount Diltiazem 125 mg In 125 Sodium Chloride 0.9% 100 ml @ 15 MG/HR 15 mls/hr IV .Q8H20M [facility] Rx#: [id number] Output: Urine 400 1100 Other: Voiding Method External Catheter # Voids 3 - Labs CBC & Chem 7: 09/03/24 07:52 09/03/24 07:52 Labs: Abnormal Lab Results - Last 24 Hours (Table) 09/03/24 09/03/24 Range/Units 07:52 07:52 RBC 2.49 L (3.80-5.40) m/uL Hgb 7.5 L (11.4-16.0) gm/dL Hct 23.9 L (34.0-46.0) % RDW 17.0 H (11.5-15.5) % Plt Count 146 L (150-450) k/uL Neutrophils # 9.7 H (1.3-7.7) k/uL Lymphocytes # 0.2 L (1.0-4.8) k/uL Carbon Dioxide 20 L (22-30) mmol/L Glucose 143 H (74-99) mg/dL Calcium 8.0 L (8.4-10.2) mg/dL Total Protein 5.4 L (6.3-8.2) g/dL Albumin 2.8 L (3.5-5.0) g/dL
[2024-09-03] MEDS: METOPROLOL SUCCINATE (ER) 25 MG TAB.ER.24H PO STA (17:52)
[2024-09-03 17:57] LABS: Glucose,Whole Blood 206 mg/dL (70-110)
[2024-09-03] MEDS: METOPROLOL TARTRATE 25 MG TAB PO STA (18:32)
[2024-09-03] MEDS: DILTIAZEM 125 MG in SODIUM CHLORIDE 0.9% 100 ML IV SCH (18:32)
[2024-09-03] MEDS ORDERED: METOPROLOL TARTRATE 50 MG TAB PO SCH (21:00)
[2024-09-03] MEDS: METOPROLOL TARTRATE 50 MG TAB PO SCH (21:15)
[2024-09-04 00:01] LABS: Glucose,Whole Blood 196 mg/dL (70-110)
[2024-09-04 05:54] LABS: Glucose,Whole Blood 189 mg/dL (70-110)
[2024-09-04 07:37] LABS: Anisocytosis Slight; Basophils % (A) 0 %; Eosinophils % (A) 0 %; HCT 24.4 % (34.0-46.0); HGB 7.6 gm/dL (11.4-16.0); Hypochromasia Slight; Lymphocytes # (A) 0.2 k/uL (1.0-4.8); Lymphocytes % (A) 2 %; MCH 29.1 pg (25.0-35.0); MCHC 31.3 g/dL (31.0-37.0); Mean Platelet Volume 9.3; Monocytes # (A) 0.4 k/uL (0-1.0); Monocytes % (A) 3 %; Neutrophils % (A) 95 %; Platelet Count 168 k/uL (150-450); RBC 2.62 m/uL (3.80-5.40); RDW 17.4 % (11.5-15.5); WBC 14.8 k/uL (3.8-10.6)
[2024-09-04 08:25] LABS: ALT 23 U/L (4-34); AST 24 U/L (14-36); African American GFR (CKD) 89 (>60 ml/min/1.73 sqM); Albumin 2.5 g/dL (3.5-5.0); Alkaline Phosphatase 95 U/L (38-126); Anion Gap 9 mmol/L; Blood Urea Nitrogen 22 mg/dL (7-17); Calcium 7.8 mg/dL (8.4-10.2); Carbon Dioxide 22 mmol/L (22-30); Chloride 103 mmol/L (98-107); Glucose 179 mg/dL (74-99); Magnesium 1.8 mg/dL (1.6-2.3); Non-African American GFR(CKD) 78 (>60 ml/min/1.73 sqM); Phosphorus 2.7 mg/dL (2.5-4.5); Potassium 3.8 mmol/L (3.5-5.1); Sodium 134 mmol/L (137-145); Total Bilirubin 0.5 mg/dL (0.2-1.3); Total Protein 4.9 g/dL (6.3-8.2)
[2024-09-04] MEDS: FUROSEMIDE 10 MG/ML 4 ML VIAL IV SCH (09:11)
[2024-09-04 10:35] LABS: Influenza A Not Detected (Not Detectd); Influenza B Not Detected (Not Detectd); RSV Not Detected (Not Detectd)
[2024-09-04 12:03] LABS: Glucose,Whole Blood 160 mg/dL (70-110)
--- NOTE | 2024-09-04 12:42 | P.PN ---
Subjective Progress Note Date: 09/04/24 SURGICAL PROGRESS NOTE CHIEF COMPLAINT: Dysphagia HISTORY OF PRESENT ILLNESS: Patient is postop day #2 status post PEG tube placement. She is tolerating trickle feeds. No residual reported. She is also tolerating small amount of oral food. She did have a bowel movement diarrhea in consistency. She does report a little nausea. Afebrile. WBC is up from 10.3 to 14.8 Hgb 7.6 PHYSICAL EXAM: VITAL SIGNS: Reviewed. GENERAL: Well-developed in no acute distress. ABDOMEN: Soft. Nondistended. Nontender. PEG tube site with small amount of dried blood noted otherwise clean dry and intact. NEUROLOGIC: Alert and oriented. Cranial nerves II through XII grossly intact. ASSESSMENT: 1. Squamous cell carcinoma of the lung and mediastinum 2. Dysphagia 3. Severe protein calorie malnutrition PLAN: -Continue trickle feeds Physician [employer] note has been reviewed by physician. Signing provider agrees with the documented findings, assessment, and plan of care. Objective - Vital Signs Vital signs: Vital Signs Temp 98.1 F 09/04/24 03:59 Pulse 84 09/04/24 12:30 Resp 24 09/04/24 12:13 BP 93/53 09/04/24 12:13 Pulse Ox 98 09/04/24 12:16 FiO2 Intake & Output 09/03/24 09/04/24 09/04/24 18:59 06:59 18:59 Intake Total 125 125 61.833 Output Total 1100 350 Balance -975 -225 61.833 Weight 77.7 kg Intake: Intake, IV Titration 125 125 61.833 Amount Diltiazem 125 mg In 125 125 61.833 Sodium Chloride 0.9% 100 ml @ 15 MG/HR 15 mls/hr IV .Q8H20M [facility] Rx#: [id number] Output: Urine 1100 350 Other: Voiding Method External Catheter External Catheter - Labs CBC & Chem 7: 09/04/24 06:13 09/04/24 06:13 Labs: Abnormal Lab Results - Last 24 Hours (Table) 09/03/24 09/03/24 09/04/24 Range/Units 17:56 23:57 05:53 WBC (3.8-10.6) k/uL RBC (3.80-5.40) m/uL Hgb (11.4-16.0) gm/dL Hct (34.0-46.0) % RDW (11.5-15.5) % Neutrophils # (1.3-7.7) k/uL Lymphocytes # (1.0-4.8) k/uL Sodium (137-145) mmol/L BUN (7-17) mg/dL Glucose (74-99) mg/dL POC Glucose (mg/dL) 206 H 196 H 189 H (70-110) mg/dL Calcium (8.4-10.2) mg/dL Total Protein (6.3-8.2) g/dL Albumin (3.5-5.0) g/dL 09/04/24 09/04/24 09/04/24 Range/Units 06:13 06:13 12:01 WBC 14.8 H (3.8-10.6) k/uL RBC 2.62 L (3.80-5.40) m/uL Hgb 7.6 L (11.4-16.0) gm/dL Hct 24.4 L (34.0-46.0) % RDW 17.4 H (11.5-15.5) % Neutrophils # 14.0 H (1.3-7.7) k/uL Lymphocytes # 0.2 L (1.0-4.8) k/uL Sodium 134 L (137-145) mmol/L BUN 22 H (7-17) mg/dL Glucose 179 H (74-99) mg/dL POC Glucose (mg/dL) 160 H (70-110) mg/dL Calcium 7.8 L (8.4-10.2) mg/dL Total Protein 4.9 L (6.3-8.2) g/dL Albumin 2.5 L (3.5-5.0) g/dL
[2024-09-04] MEDS: AMIODARONE 200 MG TAB PO SCH (13:35)
--- NOTE | 2024-09-04 14:24 | P.PN ---
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 Also history of COPD, chronic hypoxic respiratory failure on home O2 at 3 L nasal cannula. Patient was due for her third round of chemotherapy yesterday, but due to significant weakness, this was postponed until next week. Patient apparently was advised to go to the hospital for PEG tube placement. Patient is unable to take any oral medications at this time. We have been asked to evaluate the patient for A-fib with RVR. Patient has been started on Cardizem drip at 5 mg/h. She is currently running 160 bpm. Apparently patient has expressed desire to be hospice and DNR. Patient's is at the bedside and a daughter is on the phone and all questions have been answered. Daughter is very concerned that her pain issue is not being addressed and this has been referred to attending. Also daughter inquired about cardioversion which it was not advised at this time. Plan is for rate control management of the atrial fibrillation. Blood pressure 104/64, heart rate 160 on telemetry, pulse ox 96% on 4 L nasal cannula. -EKG: Atrial fibrillation 154 bpm, #2 atrial fibrillation with ventricular rate of 161. -Chest x-ray: Right midlung linear atelectasis. Known mediastinal mass. Right chest wall Mediport. COPD. -Laboratory studies: WBC 7.8, hemoglobin 8.3, platelet count 164. Troponin negative x 2. Electrolytes and renal function are normal. -Home cardiac medications: None Progress Notes 09/02/2024 Patient seen and examined at bedside this a.m. Patient converted out of atrial fibrillation. She is feeling much less short of breath, denies any chest pain chest pressure. Appears euvolemic. 09/03/2024 Patient is seen and examined at bedside this a.m. Patient went back into atrial fibrillation after the G-tube placement. Currently she is in atrial fibrillation RVR with heart rate around 130s. I will increase her beta-priyank and continue Cardizem drip. Pertinent cardiac testing Echo shows EF of 45%, hyperdynamic LV, No obvious regional wall motion abnormality, mild MR, no obvious intracardiac or extracardiac impression of cardiac structures however quality of the study was limited. 09/04/2024 Patient examined this morning at the bedside. Patient denies chest pain or pressure. Denies SOB. Telemetry reveals sinus mechanism. PHYSICAL EXAM: VITAL SIGNS: Reviewed. GENERAL: Well-developed in no acute distress. NECK: Supple. No JVD or thyromegaly LUNGS: Respirations even and unlabored. Lungs essentially clear to auscultation bilaterally. HEART: Regular rate and rhythm. S1 and S2 heard. EXTREMITIES: Normal range of motion. No clubbing or cyanosis. Peripheral pulses intact. No lower extremity edema ASSESSMENT: New onset paroxysmal atrial fibrillation with RVR, present on admission, currently sinus rhythm. Squamous cell carcinoma of the mediastinum stage IIIa COPD Chronic hypoxic respiratory failure on home O2 at 3 L nasal cannula Anemia Status post EGD with PEG tube placement PLAN: Continue current dose of metoprolol tartrate 50 mg twice a day Continue anticoagulation with Eliquis 5 mg twice a day Add oral amiodarone 400 mg twice a day Continue additional cardiac medications Continue telemetry monitoring Further recommendations pending patient course Nurse practitioner note has been reviewed by physician. Signing provider agrees with the documented findings, assessment, and plan of care documented by APPLICATION INFRASTRUCTURE ENGINEER as a scribe. Objective - Vital Signs Vital signs: Vital Signs Temp 98.1 F 09/04/24 03:59 Pulse 88 09/04/24 12:44 Resp 24 09/04/24 12:13 BP 93/53 09/04/24 12:13 Pulse Ox 98 09/04/24 12:16 FiO2 Intake & Output 09/03/24 09/04/24 09/04/24 18:59 06:59 18:59 Intake Total 125 125 61.833 Output Total 1100 350 Balance -975 -225 61.833 Weight 77.7 kg Intake: Intake, IV Titration 125 125 61.833 Amount Diltiazem 125 mg In 125 125 61.833 Sodium Chloride 0.9% 100 ml @ 15 MG/HR 15 mls/hr IV .Q8H20M [facility] Rx#: [id number] Output: Urine 1100 350 Other: Voiding Method External Catheter External Catheter - Labs CBC & Chem 7: 09/04/24 06:13 09/04/24 06:13 Labs: Abnormal Lab Results - Last 24 Hours (Table) 09/03/24 09/03/24 09/04/24 Range/Units 17:56 23:57 05:53 WBC (3.8-10.6) k/uL RBC (3.80-5.40) m/uL Hgb (11.4-16.0) gm/dL Hct (34.0-46.0) % RDW (11.5-15.5) % Neutrophils # (1.3-7.7) k/uL Lymphocytes # (1.0-4.8) k/uL Sodium (137-145) mmol/L BUN (7-17) mg/dL Glucose (74-99) mg/dL POC Glucose (mg/dL) 206 H 196 H 189 H (70-110) mg/dL Calcium (8.4-10.2) mg/dL Total Protein (6.3-8.2) g/dL Albumin (3.5-5.0) g/dL 09/04/24 09/04/24 09/04/24 Range/Units 06:13 06:13 12:01 WBC 14.8 H (3.8-10.6) k/uL RBC 2.62 L (3.80-5.40) m/uL Hgb 7.6 L (11.4-16.0) gm/dL Hct 24.4 L (34.0-46.0) % RDW 17.4 H (11.5-15.5) % Neutrophils # 14.0 H (1.3-7.7) k/uL Lymphocytes # 0.2 L (1.0-4.8) k/uL Sodium 134 L (137-145) mmol/L BUN 22 H (7-17) mg/dL Glucose 179 H (74-99) mg/dL POC Glucose (mg/dL) 160 H (70-110) mg/dL Calcium 7.8 L (8.4-10.2) mg/dL Total Protein 4.9 L (6.3-8.2) g/dL Albumin 2.5 L (3.5-5.0) g/dL
--- NOTE | 2024-09-04 14:52 | P.PN ---
Subjective Progress Note Date: 09/04/24 Hospital Course: 63-year-old female with past medical history of mediastinal squamous cell carc inoma stage III a following with Dr. Wooten in [facility] and Dr. Robledo in [place], chronic hypoxic respiratory failure secondary to COPD on 2 L of nasal cannula, who presented to the ED after she was encouraged to come here by her oncologist.She was supposed to receive her third round of chemo today however she has been very weak and was advised to come here and potentially get a PEG tube placed. She has been having increased difficulty swallowing and now is barely able to swallow liquids. She has also increased her oxygen requirements over the last week. She used to be on 2 L but for the last week has been requiring 3 L. She has been "coughing up bile" with an episode of hemoptysis about a week or two ago post radiation. The hemoptysis has resolved. Patient denying recent fever, abdominal pain, chest pain. She reports chills, severe fatigue, cough productive of a green-omar sputum (reported as "bile"), chest pressure, severe nausea, one episode of vomiting yesterday, dyspnea. Patient reports that IV Compazine is only thing that helps with her nausea. After the patient's left the room, the patient expressed a desire to be on hospice and to be a DNR/DNI stating that she wanted to fight at first but no longer has the energy to. patient was tachycardia, EKG showed A-fib with RVR, she was given Cardizem, started on IV heparin, cardiology consulted. Recommended to continue Cardizem, TTE ordered.EF 55%, trace pericardial effusion, mild mitral regurg, no obvious intracardiac mass or external compression of cardiac structures Hospice consult was placed, patient found that she would feel comfortably proceeding with hospice care although her family at bedside was highly encouraging to continue the treatment. Heme-onc consulted, general surgery consulted for PEG, cardiology consulted for new onset A-fib. Patient was seen by surgical team in the morning, declined any procedures done, later requested to be reevaluated per family request. PEG tube was placed on 09/02, no RD available over the weekend, patient was started on Jevity 1.5 at 10 cc/h 09/01 in the evening patient developed worsening SOB, chest x-ray was done and showed left lower lobe pneumonia or atelectasis, patient was started on cefepime and vancomycin, was given IV Lasix with symptoms improvement. Pulmonology consulted, patient continued on antibiotics, added Solu-Medrol, breathing treatment continued. 09/03: A-fib RVR, heart rate in 130s, BP soft with MAP of 68, now on high flow nasal cannula 9 L. Chest x-ray repeated, improved aeration of the left lung base with focal plateau right midlung contact this is in the right upper medial airspace opacities. 09/04: A-fib rate controlled, feels better, 8 Lnasal cannula. Cardiology following: Metoprolol tartrate 50 twice daily, continue Eliquis 5 twice daily, add oral amiodarone 400 mg twice a day, Lasix 20 daily oral. Viral panel negative. Started trickle feedings Subjective: Seen and examined at bedside, patient's present. Updated on current condition, blood work results, vitals. All questions answered. Patient states that she feels better today, she can sit more upright, she continues to cough, Pertinent positives and negatives as discussed above, a complete review of systems was performed and all other systems are negative. Vitals Signs Reviewed. General: , ill-appearing Derm: [warm], [dry] Head: [atraumatic], [normocephalic], [symmetric] Eyes: [EOMI], [no lid lag], [anicteric sclera] Mouth: [no lip lesion], [mucus membranes moist] Cardiovascular: [S1S2 irregular, tachycardic Lungs: [CTA bilateral], diminished left lower basilar breath sounds] , [no accessory muscle use] Abdominal: [soft], [ nontender to palpation], [no guarding], [no appreciable organomegaly] Ext: [no gross muscle atrophy], [no edema], [no contractures] Neuro: [ CN II-XI grossly intact], [no focal neuro deficits] Psych: [Alert], [oriented], [appropriate affect] Data Reviewed Today: Pertinent Labs: WBC 14.8, hemoglobin 7.6, platelet count 168, sodium 134, normal potassium, normal creatinine, blood glucose is controlled, AST and ALT normal, viral panel negative ( Assessment and Plan: New onset A-fib with RVR -Cardiology consulted: Metoprolol tartrate 50 twice daily, continue Eliquis 5 twice daily, add oral amiodarone 400 mg twice a day, Lasix 20 daily oral -TTE ordered, EF 55%, trace pericardial effusion, mild mitral regurg, no obvious intracardiac mass or external compression of cardiac structures Acute on chronic hypoxic respiratory failure secondary to COPD exacerbation, left lower lobe community-acquired pneumonia -Continue breathing treatment, added Symbicort -Pulmonology following -Continue vancomycin and cefepime 2 g every 8 hours SOT 09/02 - Solu-Medrol to 60 mg every 6 hours -on 8 L NC today Stage III NSCLC Intractable nausea secondary to above Dysphagia secondary to above, possible component of mass effect status post PEG tube 09/02 Hypoproteinemia, hypoalbuminemia secondary to above Chronic normocytic anemia -Continue IV Compazine -Per oncology, if she is able to wean off Cardizem, could continue RT sleep -Surgery on board -Nutrition consulted for tube feeding -Phosphorus level ordered-normal DVT ppx: Eliquis Code status: full code Anticipated discharge place: Pending clinical course Anticipated discharge time: Pending clinical course Objective - Vital Signs Vital signs: Vital Signs Temp 98.1 F 09/04/24 03:59 Pulse 88 09/04/24 12:44 Resp 24 09/04/24 12:13 BP 93/53 09/04/24 12:13 Pulse Ox 98 09/04/24 12:16 FiO2 Intake & Output 09/03/24 09/04/24 09/04/24 18:59 06:59 18:59 Intake Total 125 125 61.833 Output Total 1100 350 Balance -975 -225 61.833 Weight 77.7 kg 77.7 kg Intake: Intake, IV Titration 125 125 61.833 Amount Diltiazem 125 mg In 125 125 61.833 Sodium Chloride 0.9% 100 ml @ 15 MG/HR 15 mls/hr IV .Q8H20M [facility] Rx#: [id number] Output: Urine 1100 350 Other: Voiding Method External Catheter External Catheter - Labs CBC & Chem 7: 09/04/24 06:13 09/04/24 06:13 Labs: Abnormal Lab Results - Last 24 Hours (Table) 09/03/24 09/03/24 09/04/24 Range/Units 17:56 23:57 05:53 WBC (3.8-10.6) k/uL RBC (3.80-5.40) m/uL Hgb (11.4-16.0) gm/dL Hct (34.0-46.0) % RDW (11.5-15.5) % Neutrophils # (1.3-7.7) k/uL Lymphocytes # (1.0-4.8) k/uL Sodium (137-145) mmol/L BUN (7-17) mg/dL Glucose (74-99) mg/dL POC Glucose (mg/dL) 206 H 196 H 189 H (70-110) mg/dL Calcium (8.4-10.2) mg/dL Total Protein (6.3-8.2) g/dL Albumin (3.5-5.0) g/dL 09/04/24 09/04/24 09/04/24 Range/Units 06:13 06:13 12:01 WBC 14.8 H (3.8-10.6) k/uL RBC 2.62 L (3.80-5.40) m/uL Hgb 7.6 L (11.4-16.0) gm/dL Hct 24.4 L (34.0-46.0) % RDW 17.4 H (11.5-15.5) % Neutrophils # 14.0 H (1.3-7.7) k/uL Lymphocytes # 0.2 L (1.0-4.8) k/uL Sodium 134 L (137-145) mmol/L BUN 22 H (7-17) mg/dL Glucose 179 H (74-99) mg/dL POC Glucose (mg/dL) 160 H (70-110) mg/dL Calcium 7.8 L (8.4-10.2) mg/dL Total Protein 4.9 L (6.3-8.2) g/dL Albumin 2.5 L (3.5-5.0) g/dL
--- NOTE | 2024-09-04 17:44 | P.PN ---
Subjective Progress Note Date: 09/04/24 Principal diagnosis: Metastatic, Non small cell squamous cell lung carcinoma, treatment side effects In f/u today pt is very talkative, she has had swallow evaluation, pending res ults, she had PEG placed, feeds have started, she is tolerating well, she reports less odynophagia. No fever, N,V, abd pain. Objective - Vital Signs Vital signs: Vital Signs Temp 97.5 F L 09/04/24 16:00 Pulse 87 09/04/24 16:00 Resp 22 09/04/24 16:00 BP 92/47 09/04/24 16:00 Pulse Ox 96 09/04/24 16:22 FiO2 Intake & Output 09/03/24 09/04/24 09/04/24 18:59 06:59 18:59 Intake Total 125 125 61.833 Output Total 1100 350 Balance -975 -225 61.833 Weight 77.7 kg 77.7 kg Intake: Intake, IV Titration 125 125 61.833 Amount Diltiazem 125 mg In 125 125 61.833 Sodium Chloride 0.9% 100 ml @ 15 MG/HR 15 mls/hr IV .Q8H20M [facility] Rx#: [id number] Output: Urine 1100 350 Other: Voiding Method External Catheter Diaper - Constitutional General appearance: Present: average body habitus, cooperative, no acute distress - EENT Eyes: Present: anicteric sclerae, EOMI ENT: Present: hearing grossly normal - Respiratory Details: resp unlabored at rest - Cardiovascular Details: skin warm - Peripheral edema leg Peripheral Edema: bilateral: Trace - Integumentary Integumentary: Present: normal - Neurologic Neurologic: Present: CNII-XII intact - Musculoskeletal Musculoskeletal: Present: strength equal bilaterally - Psychiatric Psychiatric: Present: A&O x's 3, appropriate affect, intact judgment & insight - Labs CBC & Chem 7: 09/04/24 06:13 09/04/24 06:13 Labs: Abnormal Lab Results - Last 24 Hours (Table) 09/03/24 09/03/24 09/04/24 Range/Units 17:56 23:57 05:53 WBC (3.8-10.6) k/uL RBC (3.80-5.40) m/uL Hgb (11.4-16.0) gm/dL Hct (34.0-46.0) % RDW (11.5-15.5) % Neutrophils # (1.3-7.7) k/uL Lymphocytes # (1.0-4.8) k/uL Sodium (137-145) mmol/L BUN (7-17) mg/dL Glucose (74-99) mg/dL POC Glucose (mg/dL) 206 H 196 H 189 H (70-110) mg/dL Calcium (8.4-10.2) mg/dL Total Protein (6.3-8.2) g/dL Albumin (3.5-5.0) g/dL 09/04/24 09/04/24 09/04/24 Range/Units 06:13 06:13 12:01 WBC 14.8 H (3.8-10.6) k/uL RBC 2.62 L (3.80-5.40) m/uL Hgb 7.6 L (11.4-16.0) gm/dL Hct 24.4 L (34.0-46.0) % RDW 17.4 H (11.5-15.5) % Neutrophils # 14.0 H (1.3-7.7) k/uL Lymphocytes # 0.2 L (1.0-4.8) k/uL Sodium 134 L (137-145) mmol/L BUN 22 H (7-17) mg/dL Glucose 179 H (74-99) mg/dL POC Glucose (mg/dL) 160 H (70-110) mg/dL Calcium 7.8 L (8.4-10.2) mg/dL Total Protein 4.9 L (6.3-8.2) g/dL Albumin 2.5 L (3.5-5.0) g/dL Assessment and Plan (1) Dysphagia Current Visit: Yes Status: Acute Priority: High Code(s): R13.10 - DYSPHAGIA, UNSPECIFIED SNOMED Code(s): 57197184 (2) Squamous cell carcinoma lung Current Visit: Yes Status: Acute Priority: High Code(s): C34.90 - MALIGNANT NEOPLASM OF UNSP PART OF UNSP BRONCHUS OR LUNG SNOMED Code(s): 365695345 Plan: N/V, dysphagia, poor oral intake -Chest x-ray on admit showed development of right lung linear atelectasis. Known mediastinal mass. COPD changes. -Medications for symptoms ordered-no c/o N,V today. Odynophagia less. Pending swallow eval for dysphagia -PEG tube placed, tolerating tube feeds at this time -[place] that pt symptoms are 2/2 rebound inflammation of mass abutting esophagus interfering with motility. A fib with RVR -On cardizem drip-this was able to be stopped this AM as pt is in SR -Cardiology following Squamous cell carcinoma of lung: -Oncology history as stated in consult -During last admit, pt was started on radiation and received cycle 1 of c arbo/taxol. Since discharge pt has continued on RT, and completed cycle 2 of carbo/taxol on 08/24. Cycle 3 held due to progressing weakness and n/v. -Spoke with Rad Onc. They plan to continue XRT at this time-as long as cleared by Cardiology -Chemo on hold until acutely recovered. -Pt and family reporting they would like Medical Oncology care transferred locally. Will request treatment history and recent OV notes. Will get pt set up for an appt. -Pt reports her treatment was usually on
[2024-09-04 18:40] LABS: Glucose,Whole Blood 210 mg/dL (70-110)
--- NOTE | 2024-09-04 20:20 | P.PN ---
Subjective Progress Note Date: 09/04/24 This is a 63-year-old female patient with a recent diagnosis of squamous cell lung cancer. She has undergone 11 radiation treatments here and 2 rounds of chemotherapy at [facility]. She presented here to the emergency room on August 31, 2024 with complaints of increasing shortness of breath, cough and congestion. She was also having difficulty in swallowing. She also was found to be in atrial fibrillation with a rapid ventricular response, currently in sinus. chest x-ray revealed development of a right midlung linear atelectasis. Known mediastinal mass. Right chest wall Mediport in place. Evidence of COPD. Count 10.1. Hemoglobin 8.3. Platelets 179. Sodium 137. Potassium 4.1. Bi carb 18. BUN 11. Creatinine 0.81. Glucose 99. She is seen today in consultation on the selective care unit. She is currently resting in bed. Awake and alert in mild respiratory distress. She is requiring 12 L high flow nasal cannula to maintain O2 saturations in the 90s. She is normally on home oxygen at 3 L. Arterial blood gases done yesterday on 60% FiO2 revealed a PaO2 of 77, pCO2 40, pH 7.38. She has a large mediastinal mass from her lung cancer compressing her esophagus causing dysphagia. She is undergoing PEG tube insertion today. Progress note dated September 03, 2024. 63-year-old female seen yesterday in consultation. The patient has a history of recently diagnosed squamous cell carcinoma of the lung. The patient has had 11 radiation treatments, 2 cycles of chemotherapy. She gets her radiation here, and her chemotherapy, at [facility]. The patient comes into the hospital, with complaints of shortness of breath, chest congestion, cough, difficulty swallowing. Yesterday, the patient had an EGD and PEG tube placed by surgery. The patient is currently not on any fluids. She is getting high flow oxygen, at 10 L. She continues on cefepime and vancomycin. Current laboratory data includes a white count 10.3, hemoglobin 7.5, hematocrit 23.9, platelet count 246,000. Sodium 138, potassium 4.3, chlorides 105, CO2 20, BUN 16, creatinine 0.74. Glucose is 143. Calcium 8. Albumin 2.8. Procalcitonin level 0.32. On 09/04/2024, the patient is being seen for a follow-up. Remains short of breath and is having frequent cough. Oxygenation is stable on 7 L of oxygen by nasal cannula with a pulse ox of 96%. Reviewed the series of chest x-rays that was done during the current hospitalization. The patient has areas of consolidation and airspace disease in the right midlung and the left lower lobe in addition to mediastinal fullness consistent with her underlying squamous cell carcinoma of the lung. The patient remains on DuoNeb nebulized treatments [id number]. The patient remains on Symbicort. The patient remains on IV Solu-Medrol 60 mg every 6 hours. The patient is also on a combination of cefepime and vancomycin. She is also noted to be in atrial fibrillation with rapid ventricular response at time of admission. The patient has an ejection fraction 45% with hyperdynamic LV without any significant wall motion abnormalities. There was mild mitral regurgitation. Her current cardiac rhythm seems to be sinus. The patient remains on anticoagulation with Eliquis 5 mg p.o. twice a day. Amiodarone was also added at a dose of 4 mg p.o. twice daily in combination with metoprolol 50 mg twice a day. No hemoptysis. No pleurisy. Chronic shortness of breath secondary to her advanced lung cancer. Meanwhile, the patient was started on enteral feeding for nutritional support and the patient is currently on Jevity 1.5 that is running at 10 cc an hour. Objective - Vital Signs Vital signs: Vital Signs Temp 98.1 F 09/04/24 03:59 Pulse 88 09/04/24 12:44 Resp 24 09/04/24 12:13 BP 93/53 09/04/24 12:13 Pulse Ox 98 09/04/24 12:16 FiO2 Intake & Output 09/03/24 09/04/24 09/04/24 18:59 06:59 18:59 Intake Total 125 125 61.833 Output Total 1100 350 Balance -975 -225 61.833 Weight 77.7 kg Intake: Intake, IV Titration 125 125 61.833 Amount Diltiazem 125 mg In 125 125 61.833 Sodium Chloride 0.9% 100 ml @ 15 MG/HR 15 mls/hr IV .Q8H20M [facility] Rx#: [id number] Output: Urine 1100 350 Other: Voiding Method External Catheter External Catheter - Exam No acute distress, oriented 3. Currently on 7 L high flow O2. The patient does have a frequent cough. HEENT examination is grossly unremarkable. Mucous membranes are moist. No oral lesions. Neck supple. Full range of motion. No adenopathy thyromegaly or neck vein distention. Cardiovascular examination reveals regular rhythm rate. S1-S2 normal. No S3 or S4. No discernible murmur noted. Lungs reveal bilateral inspiratory and expiratory rhonchi and wheezes. Breath sounds are diminished. Cough is wet and congested. No crackles. Breath sounds are equal bilaterally. Abdomen soft bowel sounds are heard. No masses or tenderness. PEG tube is noted. Extremities are intact. No cyanosis clubbing or edema. Skin is without rash or lesion. Neurologic examination is brief but nonfocal. - Labs CBC & Chem 7: 09/04/24 06:13 09/04/24 06:13 Labs: Abnormal Lab Results - Last 24 Hours (Table) 09/03/24 09/03/24 09/04/24 Range/Units 17:56 23:57 05:53 WBC (3.8-10.6) k/uL RBC (3.80-5.40) m/uL Hgb (11.4-16.0) gm/dL Hct (34.0-46.0) % RDW (11.5-15.5) % Neutrophils # (1.3-7.7) k/uL Lymphocytes # (1.0-4.8) k/uL Sodium (137-145) mmol/L BUN (7-17) mg/dL Glucose (74-99) mg/dL POC Glucose (mg/dL) 206 H 196 H 189 H (70-110) mg/dL Calcium (8.4-10.2) mg/dL Total Protein (6.3-8.2) g/dL Albumin (3.5-5.0) g/dL 09/04/24 09/04/24 09/04/24 Range/Units 06:13 06:13 12:01 WBC 14.8 H (3.8-10.6) k/uL RBC 2.62 L (3.80-5.40) m/uL Hgb 7.6 L (11.4-16.0) gm/dL Hct 24.4 L (34.0-46.0) % RDW 17.4 H (11.5-15.5) % Neutrophils # 14.0 H (1.3-7.7) k/uL Lymphocytes # 0.2 L (1.0-4.8) k/uL Sodium 134 L (137-145) mmol/L BUN 22 H (7-17) mg/dL Glucose 179 H (74-99) mg/dL POC Glucose (mg/dL) 160 H (70-110) mg/dL Calcium 7.8 L (8.4-10.2) mg/dL Total Protein 4.9 L (6.3-8.2) g/dL Albumin 2.5 L (3.5-5.0) g/dL Assessment and Plan Plan: Acute hypoxic respiratory failure, currently on 7 L of oxygen by nasal cannula, oxygenation has improved over the past 24 to 48 hours Atrial fibrillation with rapid ventricular response, back into normal sinus rhythm. Currently on a combination of amiodarone 4 mg p.o. twice a day and metoprolol 50 mg p.o. twice daily and the patient is anticoagulation with Eliquis squamous cell carcinoma of the lung, stage III, locally advanced and the patient has received a total of 11 rounds of radiation therapy, and 2 cycles of systemic chemotherapy. Bilateral consolidation/airspace disease involving the right midlung and the left lower lobe, consider atelectasis versus radiation pulmonary pneumonitis versus bacterial pneumonia. The procalcitonin level at time of admission was not elevated. Chronic obstructive pulmonary disease. Chronic nausea and dysphagia with difficulties in tolerating oral intake and the patient was given a PEG tube for enteral feeding nutritional support. Hearing disorder. Psoriatic arthritis. Former smoker. History of anxiety. History of ADHD. Plan: Titrate oxygen flow to maintain saturation above 90%. Currently on 7 L/min nasal cannula. Continue Symbicort Continue DuoNeb updrafts 4 times a day Continue cefepime and vancomycin as broad-spectrum antibiotic coverage. The patient procalcitonin level is not elevated IV Solu-Medrol 60 mg every 6 hours Hold radiation therapy for now Continue enteral feeding for nutritional support and the patient was given a PEG tube and currently the patient is receiving Jevity 1.5 at rate of 10 cc an hour Cardiac rhythm is sinus Continue amiodarone 400 mg p.o. twice daily and metoprolol 50 mg p.o. twice a day and anticoagulation with Eliquis Long-term prognosis poor based on above-mentioned comorbidities. Will continue to follow.
[2024-09-04] MEDS: PANTOPRAZOLE 40 MG/10 ML VIAL IVP SCH (20:38)
[2024-09-05 00:09] LABS: Glucose,Whole Blood 237 mg/dL (70-110)
[2024-09-05 06:01] LABS: Glucose,Whole Blood 196 mg/dL (70-110)
[2024-09-05 08:01] LABS: Anisocytosis Slight; Basophils % (A) 0 %; Eosinophils % (A) 0 %; HCT 26.8 % (34.0-46.0); HGB 8.4 gm/dL (11.4-16.0); Hypochromasia Moderate; Lymphocytes # (A) 0.2 k/uL (1.0-4.8); Lymphocytes % (A) 1 %; MCH 29.3 pg (25.0-35.0); MCHC 31.2 g/dL (31.0-37.0); MCV 93.9 fL (80.0-100.0); Mean Platelet Volume 8.9; Monocytes # (A) 0.5 k/uL (0-1.0); Monocytes % (A) 3 %; Neutrophils # (A) 17.3 k/uL (1.3-7.7); Neutrophils % (A) 96 %; Platelet Count 175 k/uL (150-450); RBC 2.86 m/uL (3.80-5.40); RDW 17.5 % (11.5-15.5); WBC 18.1 k/uL (3.8-10.6)
[2024-09-05 08:23] LABS: ALT 23 U/L (4-34); AST 16 U/L (14-36); African American GFR (CKD) >90 (>60 ml/min/1.73 sqM); Albumin 2.8 g/dL (3.5-5.0); Alkaline Phosphatase 102 U/L (38-126); Anion Gap 10 mmol/L; Blood Urea Nitrogen 24 mg/dL (7-17); Calcium 8.1 mg/dL (8.4-10.2); Carbon Dioxide 21 mmol/L (22-30); Chloride 106 mmol/L (98-107); Glucose 195 mg/dL (74-99); Magnesium 1.9 mg/dL (1.6-2.3); Non-African American GFR(CKD) 80 (>60 ml/min/1.73 sqM); Phosphorus 2.6 mg/dL (2.5-4.5); Potassium 3.5 mmol/L (3.5-5.1); Sodium 137 mmol/L (137-145); Total Bilirubin 0.4 mg/dL (0.2-1.3); Total Protein 5.2 g/dL (6.3-8.2)
[2024-09-05] MEDS: FUROSEMIDE 20 MG TAB PO SCH (10:41)
[2024-09-05 11:50] LABS: Glucose,Whole Blood 210 mg/dL (70-110)
[2024-09-05] MEDS: VANCOMYCIN TROUGH DUE 1 EACH MISC MISCELLANE ONE (13:14)
[2024-09-05] MEDS: METOPROLOL TARTRATE 25 MG TAB PO STA (13:39)
--- NOTE | 2024-09-05 16:17 | P.PN ---
Subjective Progress Note Date: 09/05/24 Principal diagnosis: Metastatic, Non small cell squamous cell lung carcinoma, treatment side effects In f/u today pt is tolerating tube feed, no new c/o. She is going to possibly proceed with radiation, pending Pulm recs. Objective - Vital Signs Vital signs: Vital Signs Temp 97.5 F L 09/05/24 11:09 Pulse 64 09/05/24 12:16 Resp 20 09/05/24 11:09 BP 96/59 09/05/24 11:09 Pulse Ox 98 09/05/24 11:09 FiO2 Intake & Output 09/04/24 09/05/24 09/05/24 18:59 06:59 18:59 Intake Total 61.833 Balance 61.833 Weight 77.7 kg 78.6 kg Intake: Intake, IV Titration 61.833 Amount Diltiazem 125 mg In 61.833 Sodium Chloride 0.9% 100 ml @ 15 MG/HR 15 mls/hr IV .Q8H20M [facility] Rx#: [id number] Other: Voiding Method Diaper Diaper Diaper # Voids 1 # Bowel Movements 1 - Constitutional General appearance: Present: average body habitus, cooperative, no acute dis tress - EENT Eyes: Present: anicteric sclerae, EOMI ENT: Present: hearing grossly normal, normal oropharynx - Respiratory Respiratory: bilateral: CTA, rhonchi (mediastinal ) - Cardiovascular Rhythm: regular Heart sounds: normal: S1, S2 Abnormal Heart Sounds: Absent: systolic murmur, diastolic murmur, rub, S3 Gallop, S4 Gallop, click, other - Peripheral edema leg Peripheral Edema: bilateral: None - Gastrointestinal Gastrointestinal Comment(s): LUQ PEG, mild bruising noted to the left of the tube General gastrointestinal: Present: normal bowel sounds, soft - Integumentary Integumentary: Present: normal - Neurologic Neurologic: Present: CNII-XII intact - Musculoskeletal Musculoskeletal: Present: generalized weakness - Psychiatric Psychiatric: Present: A&O x's 3, appropriate affect, intact judgment & insight - Labs CBC & Chem 7: 09/05/24 07:40 09/05/24 07:40 Labs: Abnormal Lab Results - Last 24 Hours (Table) 09/04/24 09/05/24 09/05/24 Range/Units 18:38 00:08 06:00 WBC (3.8-10.6) k/uL RBC (3.80-5.40) m/uL Hgb (11.4-16.0) gm/dL Hct (34.0-46.0) % RDW (11.5-15.5) % Neutrophils # (1.3-7.7) k/uL Lymphocytes # (1.0-4.8) k/uL Carbon Dioxide (22-30) mmol/L BUN (7-17) mg/dL Glucose (74-99) mg/dL POC Glucose (mg/dL) 210 H 237 H 196 H (70-110) mg/dL Calcium (8.4-10.2) mg/dL Total Protein (6.3-8.2) g/dL Albumin (3.5-5.0) g/dL 09/05/24 09/05/24 09/05/24 Range/Units 07:40 07:40 11:48 WBC 18.1 H (3.8-10.6) k/uL RBC 2.86 L (3.80-5.40) m/uL Hgb 8.4 L (11.4-16.0) gm/dL Hct 26.8 L (34.0-46.0) % RDW 17.5 H (11.5-15.5) % Neutrophils # 17.3 H (1.3-7.7) k/uL Lymphocytes # 0.2 L (1.0-4.8) k/uL Carbon Dioxide 21 L (22-30) mmol/L BUN 24 H (7-17) mg/dL Glucose 195 H (74-99) mg/dL POC Glucose (mg/dL) 210 H (70-110) mg/dL Calcium 8.1 L (8.4-10.2) mg/dL Total Protein 5.2 L (6.3-8.2) g/dL Albumin 2.8 L (3.5-5.0) g/dL Assessment and Plan (1) Dysphagia Current Visit: Yes Status: Acute Priority: High Code(s): R13.10 - DYSPHAGIA, UNSPECIFIED SNOMED Code(s): 60007661 (2) Squamous cell carcinoma lung Current Visit: Yes Status: Acute Priority: High Code(s): C34.90 - MALIGNANT NEOPLASM OF UNSP PART OF UNSP BRONCHUS OR LUNG SNOMED Code(s): 205190436 Plan: N/V, dysphagia, poor oral intake -Chest x-ray on admit showed development of right lung linear atelectasis. Known mediastinal mass. COPD changes. -Medications for symptoms ordered, pt doing much better. Odynophagia less. Pending swallow eval for recommendation -PEG tube placed, tolerating tube feeds at this time -Glidden that pt symptoms are 2/2 rebound inflammation of mass abutting esophagus interfering with motility. A fib with RVR -Rate controlled per notes -Cardiology following Squamous cell carcinoma of lung -Oncology history as stated in consult -During last admit, pt was started on radiation and received cycle 1 of carbo/taxol. Since discharge pt has continued on RT, and completed cycle 2 of carbo/taxol on 08/24. Cycle 3 held due to progressing weakness and n/v. -Spoke with Rad Onc. They plan to continue XRT at this time-as long as cleared by Cardiology and Pulmonary -Chemo on hold until acutely recovered. -Did get Oncology care transferred locally. Appt in DC plan. -Pt reports her treatment was usually on . Since pt will have missed 2 treatments by this , we will plan to resume pt on treatment as soon as she can. Pt and family agree with that plan
[2024-09-05] MEDS ORDERED: DEXTROSE 50% SYRINGE 50 ML IVP PRN ×2 (17:29)
--- NOTE | 2024-09-05 17:31 | P.PN ---
Subjective Progress Note Date: 09/05/24 Hospital Course: 63-year-old female with past medical history of mediastinal squamous cell carc inoma stage III a following with Dr. Wooten in [facility] and Dr. Robledo in [place], chronic hypoxic respiratory failure secondary to COPD on 2 L of nasal cannula, who presented to the ED after she was encouraged to come here by her oncologist.She was supposed to receive her third round of chemo today however she has been very weak and was advised to come here and potentially get a PEG tube placed. She has been having increased difficulty swallowing and now is barely able to swallow liquids. She has also increased her oxygen requirements over the last week. She used to be on 2 L but for the last week has been requiring 3 L. She has been "coughing up bile" with an episode of hemoptysis about a week or two ago post radiation. The hemoptysis has resolved. Patient denying recent fever, abdominal pain, chest pain. She reports chills, severe fatigue, cough productive of a green-omar sputum (reported as "bile"), chest pressure, severe nausea, one episode of vomiting yesterday, dyspnea. Patient reports that IV Compazine is only thing that helps with her nausea. After the patient's left the room, the patient expressed a desire to be on hospice and to be a DNR/DNI stating that she wanted to fight at first but no longer has the energy to. patient was tachycardia, EKG showed A-fib with RVR, she was given Cardizem, started on IV heparin, cardiology consulted. Recommended to continue Cardizem, TTE ordered.EF 55%, trace pericardial effusion, mild mitral regurg, no obvious intracardiac mass or external compression of cardiac structures Hospice consult was placed, patient found that she would feel comfortably proceeding with hospice care although her family at bedside was highly encouraging to continue the treatment. Heme-onc consulted, general surgery consulted for PEG, cardiology consulted for new onset A-fib. Patient was seen by surgical team in the morning, declined any procedures done, later requested to be reevaluated per family request. PEG tube was placed on 09/02, no RD available over the weekend, patient was started on Jevity 1.5 at 10 cc/h 09/01 in the evening patient developed worsening SOB, chest x-ray was done and showed left lower lobe pneumonia or atelectasis, patient was started on cefepime and vancomycin, was given IV Lasix with symptoms improvement. Pulmonology consulted, patient continued on antibiotics, added Solu-Medrol, breathing treatment continued. 09/03: A-fib RVR, heart rate in 130s, BP soft with MAP of 68, now on high flow nasal cannula 9 L. Chest x-ray repeated, improved aeration of the left lung base with focal plateau right midlung contact this is in the right upper medial airspace opacities. 09/04: A-fib rate controlled, feels better, 8 Lnasal cannula. Cardiology following: Metoprolol tartrate 50 twice daily, continue Eliquis 5 twice daily, add oral amiodarone 400 mg twice a day, Lasix 20 daily oral. Viral panel negative. Started trickle feedings 09/05:Shortness of breath improved, now on 6 L nasal cannula converted to sinus rhythm, heart rate controlled . ,Subjective: Seen and examined at bedside, patient's present. Updated on current condition, blood work results, vitals. All questions answered. Patient states that she feels better today, her pain is controlled, she tolerates diet well, noted that she is weak when tries to get up Pertinent positives and negatives as discussed above, a complete review of systems was performed and all other systems are negative. Vitals Signs Reviewed. General: , ill-appearing Derm: [warm], [dry] Head: [atraumatic], [normocephalic], [symmetric] Eyes: [EOMI], [no lid lag], [anicteric sclera] Mouth: [no lip lesion], [mucus membranes moist] Cardiovascular: [S1S2 irregular, tachycardic Lungs: [CTA bilateral], diminished left lower basilar breath sounds] , [no accessory muscle use] Abdominal: [soft], [ nontender to palpation], [no guarding], [no appreciable organomegaly] Ext: [no gross muscle atrophy], [no edema], [no contractures] Neuro: [ CN II-XI grossly intact], [no focal neuro deficits] Psych: [Alert], [oriented], [appropriate affect] Data Reviewed Today: Pertinent Labs: WBC 14.8, hemoglobin 7.6, platelet count 168, sodium 134, normal potassium, normal creatinine, blood glucose is controlled, AST and ALT normal, viral panel negative ( Assessment and Plan: New onset A-fib with RVR -Cardiology consulted: Metoprolol tartrate 50 twice daily, continue Eliquis 5 twice daily, add oral amiodarone 400 mg twice a day, Lasix 20 daily oral -TTE ordered, EF 55%, trace pericardial effusion, mild mitral regurg, no obvious intracardiac mass or external compression of cardiac structures Acute on chronic hypoxic respiratory failure secondary to COPD exacerbation, left lower lobe community-acquired pneumonia Steroid-induced hyperglycemia -Continue breathing treatment, added Symbicort -Pulmonology following -Continue vancomycin and cefepime 2 g every 8 hours SOT 09/02 - Solu-Medrol to 60 mg every 6 hours -on 6 L NC today -SSI and Accu-Cheks Stage III NSCLC Intractable nausea secondary to above, resolved Dysphagia secondary to above, possible component of mass effect status post PEG tube 09/02 Hypoproteinemia, hypoalbuminemia secondary to above Chronic normocytic anemia -Continue IV Compazine -Per radoncology, if she is able to wean off Cardizem, could continue RT , needs cardio and pulm clearance -Surgery on board -Nutrition consulted for tube feeding, tolerating well -Phosphorus level ordered-normal DVT ppx: Eliquis Code status: full code Anticipated discharge place: Pending clinical course Anticipated discharge time: Pending clinical course Objective - Vital Signs Vital signs: Vital Signs Temp 97.5 F L 09/05/24 11:09 Pulse 72 09/05/24 16:10 Resp 16 09/05/24 15:52 BP 108/67 09/05/24 15:52 Pulse Ox 100 09/05/24 15:52 FiO2 Intake & Output 09/04/24 09/05/24 09/05/24 18:59 06:59 18:59 Intake Total 61.833 Balance 61.833 Weight 77.7 kg 78.6 kg Intake: Intake, IV Titration 61.833 Amount Diltiazem 125 mg In 61.833 Sodium Chloride 0.9% 100 ml @ 15 MG/HR 15 mls/hr IV .Q8H20M [facility] Rx#: [id number] Other: Voiding Method Diaper Diaper Diaper # Voids 1 # Bowel Movements 1 - Labs CBC & Chem 7: 09/05/24 07:40 09/05/24 07:40 Labs: Abnormal Lab Results - Last 24 Hours (Table) 09/04/24 09/05/24 09/05/24 Range/Units 18:38 00:08 06:00 WBC (3.8-10.6) k/uL RBC (3.80-5.40) m/uL Hgb (11.4-16.0) gm/dL Hct (34.0-46.0) % RDW (11.5-15.5) % Neutrophils # (1.3-7.7) k/uL Lymphocytes # (1.0-4.8) k/uL Carbon Dioxide (22-30) mmol/L BUN (7-17) mg/dL Glucose (74-99) mg/dL POC Glucose (mg/dL) 210 H 237 H 196 H (70-110) mg/dL Calcium (8.4-10.2) mg/dL Total Protein (6.3-8.2) g/dL Albumin (3.5-5.0) g/dL 09/05/24 09/05/24 09/05/24 Range/Units 07:40 07:40 11:48 WBC 18.1 H (3.8-10.6) k/uL RBC 2.86 L (3.80-5.40) m/uL Hgb 8.4 L (11.4-16.0) gm/dL Hct 26.8 L (34.0-46.0) % RDW 17.5 H (11.5-15.5) % Neutrophils # 17.3 H (1.3-7.7) k/uL Lymphocytes # 0.2 L (1.0-4.8) k/uL Carbon Dioxide 21 L (22-30) mmol/L BUN 24 H (7-17) mg/dL Glucose 195 H (74-99) mg/dL POC Glucose (mg/dL) 210 H (70-110) mg/dL Calcium 8.1 L (8.4-10.2) mg/dL Total Protein 5.2 L (6.3-8.2) g/dL Albumin 2.8 L (3.5-5.0) g/dL
--- NOTE | 2024-09-05 18:07 | P.PN ---
Subjective HISTORY OF PRESENT ILLNESS: This is a 63-year-old female with no previous cardiac history and does not follow with a dry transfer man. 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 Also history of COPD, chronic hypoxic respiratory failure on home O2 at 3 L nasal cannula. Patient was due for her third round of chemotherapy yesterday, but due to significant weakness, this was postponed until next week. Patient apparently was advised to go to the hospital for PEG tube placement. Patient is unable to take any oral medications at this time. We have been asked to evaluate the patient for A-fib with RVR. Patient has been started on Cardizem drip at 5 mg/h. She is currently running 160 bpm. Apparently patient has expressed desire to be hospice and DNR. Patient's is at the bedside and a daughter is on the phone and all questions have been answered. Daughter is very concerned that her pain issue is not being addressed and this has been referred to attending. Also daughter inquired about cardioversion which it was not advised at this time. Plan is for rate control management of the atrial fibrillation. Blood pressure 104/64, heart rate 160 on telemetry, pulse ox 96% on 4 L nasal cannula. -EKG: Atrial fibrillation 154 bpm, #2 atrial fibrillation with ventricular rate of 161. -Chest x-ray: Right midlung linear atelectasis. Known mediastinal mass. Right chest wall Mediport. COPD. -Laboratory studies: WBC 7.8, hemoglobin 8.3, platelet count 164. Troponin negative x 2. Electrolytes and renal function are normal. -Home cardiac medications: None Progress Notes 09/02/2024 Patient seen and examined at bedside this a.m. Patient converted out of atrial fibrillation. She is feeling much less short of breath, denies any chest pain chest pressure. Appears euvolemic. 09/03/2024 Patient is seen and examined at bedside this a.m. Patient went back into atrial fibrillation after the G-tube placement. Currently she is in atrial fibrillation RVR with heart rate around 130s. I will increase her beta-priyank and continue Cardizem drip. Pertinent cardiac testing Echo shows EF of 45%, hyperdynamic LV, No obvious regional wall motion abnormality, mild MR, no obvious intracardiac or extracardiac impression of cardiac structures however quality of the study was limited. 09/04/2024 Patient examined this morning at the bedside. Patient denies chest pain or pressure. Denies SOB. Telemetry reveals sinus mechanism. 09/05/2024 Patient examined this afternoon at the bedside. Patient currently denies any chest pain or pressure. She denies shortness of breath. Patient went back into [facility] with RVR. She remains in atrial fibrillation with a heart rate around 120 at the time of examination. Blood pressure stable with a recent reading of 108/ 67. She remains on 5 L high flow nasal cannula with oxygen saturations greater than 92%. PHYSICAL EXAM: VITAL SIGNS: Reviewed. GENERAL: Well-developed in no acute distress. NECK: Supple. No JVD or thyromegaly LUNGS: Respirations even and unlabored. Lungs essentially clear to auscultation bilaterally. HEART: Tachycardic. Irregular rate and rhythm. S1 and S2 heard. EXTREMITIES: Normal range of motion. No clubbing or cyanosis. Peripheral pulses intact. No lower extremity edema ASSESSMENT: New onset paroxysmal atrial fibrillation with RVR, present on admission Squamous cell carcinoma of the mediastinum stage IIIa COPD Chronic hypoxic respiratory failure on home O2 at 3 L nasal cannula Anemia Status post EGD with PEG tube placement PLAN: Continue current dose of metoprolol tartrate 50 mg twice a day. Given additional dose of metoprolol tartrate 25 mg x 1 now Continue anticoagulation with Eliquis 5 mg twice a day Patient started on oral amiodarone yesterday 400 mg twice a day Continue additional cardiac medications Continue telemetry monitoring Further recommendations pending patient course Nurse practitioner note has been reviewed by physician. Signing provider agrees with the documented findings, assessment, and plan of care documented by INDUSTRIAL PIPEFITTER JOURNEYMAN as a scribe. Objective - Vital Signs Vital signs: Vital Signs Temp 97.5 F L 09/05/24 11:09 Pulse 72 09/05/24 16:10 Resp 16 09/05/24 15:52 BP 108/67 09/05/24 15:52 Pulse Ox 100 09/05/24 15:52 FiO2 Intake & Output 09/04/24 09/05/24 09/05/24 18:59 06:59 18:59 Intake Total 61.833 Balance 61.833 Weight 77.7 kg 78.6 kg Intake: Intake, IV Titration 61.833 Amount Diltiazem 125 mg In 61.833 Sodium Chloride 0.9% 100 ml @ 15 MG/HR 15 mls/hr IV .Q8H20M [facility] Rx#: [id number] Other: Voiding Method Diaper Diaper Diaper # Voids 1 # Bowel Movements 1 - Labs CBC & Chem 7: 09/05/24 07:40 09/05/24 07:40 Labs: Abnormal Lab Results - Last 24 Hours (Table) 09/04/24 09/05/24 09/05/24 Range/Units 18:38 00:08 06:00 WBC (3.8-10.6) k/uL RBC (3.80-5.40) m/uL Hgb (11.4-16.0) gm/dL Hct (34.0-46.0) % RDW (11.5-15.5) % Neutrophils # (1.3-7.7) k/uL Lymphocytes # (1.0-4.8) k/uL Carbon Dioxide (22-30) mmol/L BUN (7-17) mg/dL Glucose (74-99) mg/dL POC Glucose (mg/dL) 210 H 237 H 196 H (70-110) mg/dL Calcium (8.4-10.2) mg/dL Total Protein (6.3-8.2) g/dL Albumin (3.5-5.0) g/dL 09/05/24 09/05/24 09/05/24 Range/Units 07:40 07:40 11:48 WBC 18.1 H (3.8-10.6) k/uL RBC 2.86 L (3.80-5.40) m/uL Hgb 8.4 L (11.4-16.0) gm/dL Hct 26.8 L (34.0-46.0) % RDW 17.5 H (11.5-15.5) % Neutrophils # 17.3 H (1.3-7.7) k/uL Lymphocytes # 0.2 L (1.0-4.8) k/uL Carbon Dioxide 21 L (22-30) mmol/L BUN 24 H (7-17) mg/dL Glucose 195 H (74-99) mg/dL POC Glucose (mg/dL) 210 H (70-110) mg/dL Calcium 8.1 L (8.4-10.2) mg/dL Total Protein 5.2 L (6.3-8.2) g/dL Albumin 2.8 L (3.5-5.0) g/dL
[2024-09-05 18:28] LABS: Glucose,Whole Blood 208 mg/dL (70-110)
[2024-09-05] MEDS: INSULIN ASPART (NovoLOG) 100 UNIT/ML VIAL SQ SCH (18:50)
--- NOTE | 2024-09-05 18:59 | P.PN ---
Subjective Progress Note Date: 09/05/24 This is a 63-year-old female patient with a recent diagnosis of squamous cell lung cancer. She has undergone 11 radiation treatments here and 2 rounds of chemotherapy at [facility]. She presented here to the emergency room on August 31, 2024 with complaints of increasing shortness of breath, cough and congestion. She was also having difficulty in swallowing. She also was found to be in atrial fibrillation with a rapid ventricular response, currently in sinus. chest x-ray revealed development of a right midlung linear atelectasis. Known mediastinal mass. Right chest wall Mediport in place. Evidence of COPD. Count 10.1. Hemoglobin 8.3. Platelets 179. Sodium 137. Potassium 4.1. Bi carb 18. BUN 11. Creatinine 0.81. Glucose 99. She is seen today in consultation on the selective care unit. She is currently resting in bed. Awake and alert in mild respiratory distress. She is requiring 12 L high flow nasal cannula to maintain O2 saturations in the 90s. She is normally on home oxygen at 3 L. Arterial blood gases done yesterday on 60% FiO2 revealed a PaO2 of 77, pCO2 40, pH 7.38. She has a large mediastinal mass from her lung cancer compressing her esophagus causing dysphagia. She is undergoing PEG tube insertion today. Progress note dated September 03, 2024. 63-year-old female seen yesterday in consultation. The patient has a history of recently diagnosed squamous cell carcinoma of the lung. The patient has had 11 radiation treatments, 2 cycles of chemotherapy. She gets her radiation here, and her chemotherapy, at [facility]. The patient comes into the hospital, with complaints of shortness of breath, chest congestion, cough, difficulty swallowing. Yesterday, the patient had an EGD and PEG tube placed by surgery. The patient is currently not on any fluids. She is getting high flow oxygen, at 10 L. She continues on cefepime and vancomycin. Current laboratory data includes a white count 10.3, hemoglobin 7.5, hematocrit 23.9, platelet count 246,000. Sodium 138, potassium 4.3, chlorides 105, CO2 20, BUN 16, creatinine 0.74. Glucose is 143. Calcium 8. Albumin 2.8. Procalcitonin level 0.32. On 09/04/2024, the patient is being seen for a follow-up. Remains short of breath and is having frequent cough. Oxygenation is stable on 7 L of oxygen by nasal cannula with a pulse ox of 96%. Reviewed the series of chest x-rays that was done during the current hospitalization. The patient has areas of consolidation and airspace disease in the right midlung and the left lower lobe in addition to mediastinal fullness consistent with her underlying squamous cell carcinoma of the lung. The patient remains on DuoNeb nebulized treatments [id number]. The patient remains on Symbicort. The patient remains on IV Solu-Medrol 60 mg every 6 hours. The patient is also on a combination of cefepime and vancomycin. She is also noted to be in atrial fibrillation with rapid ventricular response at time of admission. The patient has an ejection fraction 45% with hyperdynamic LV without any significant wall motion abnormalities. There was mild mitral regurgitation. Her current cardiac rhythm seems to be sinus. The patient remains on anticoagulation with Eliquis 5 mg p.o. twice a day. Amiodarone was also added at a dose of 4 mg p.o. twice daily in combination with metoprolol 50 mg twice a day. No hemoptysis. No pleurisy. Chronic shortness of breath secondary to her advanced lung cancer. Meanwhile, the patient was started on enteral feeding for nutritional support and the patient is currently on Jevity 1.5 that is running at 10 cc an hour. On 09/05/2024, the patient is feeling essentially the same as yesterday. There has been interval improvement in the oxygenation the patient is currently on 5 L of O2 nasal cannula. No chest pain. No significant shortness of breath. No hemoptysis. No pleurisy. Remains on DuoNeb nebulized treatments [id number]. Remains on IV Solu-Medrol. Remains on broad-spectrum IV biotics and the patient remains on a combination of cefepime and vancomycin. Meanwhile, she is still having episodes of atrial fibrillation and further adjustments in the cardiac medications were done and the patient was placed on amiodarone 400 mg p.o. twice a day and metoprolol 50 mg p.o. twice a day patient is also on anticoagulation and the patient is currently on Eliquis. The white cell count of 18.1 with a hemoglobin 8.4 and a platelet count of 175. BUN is 24 with a creatinine of 0.7. Sodium levels at 137. LFTs are essentially within normal limits. The patient continues to receive enteral feeding for nutritional support. She is at rate of 40 cc an hour. Objective - Vital Signs Vital signs: Vital Signs Temp 97.5 F L 09/05/24 11:09 Pulse 64 09/05/24 12:16 Resp 20 09/05/24 13:23 BP 96/59 09/05/24 11:09 Pulse Ox 98 09/05/24 13:23 FiO2 Intake & Output 09/04/24 09/05/24 09/05/24 18:59 06:59 18:59 Intake Total 61.833 Balance 61.833 Weight 77.7 kg 78.6 kg Intake: Intake, IV Titration 61.833 Amount Diltiazem 125 mg In 61.833 Sodium Chloride 0.9% 100 ml @ 15 MG/HR 15 mls/hr IV .Q8H20M [facility] Rx#: [id number] Other: Voiding Method Diaper Diaper Diaper # Voids 1 # Bowel Movements 1 - Exam No acute distress, oriented 3. Currently on 5 L high flow O2. The patient does have a frequent cough. HEENT examination is grossly unremarkable. Mucous membranes are moist. No oral lesions. Neck supple. Full range of motion. No adenopathy thyromegaly or neck vein distention. Cardiovascular examination reveals regular rhythm rate. S1-S2 normal. No S3 or S4. No discernible murmur noted. Lungs reveal bilateral inspiratory and expiratory rhonchi and wheezes. Breath sounds are diminished. Cough is wet and congested. No crackles. Breath sounds are equal bilaterally. Abdomen soft bowel sounds are heard. No masses or tenderness. PEG tube is noted. Extremities are intact. No cyanosis clubbing or edema. Skin is without rash or lesion. Neurologic examination is brief but nonfocal. - Labs CBC & Chem 7: 09/05/24 07:40 09/05/24 07:40 Labs: Abnormal Lab Results - Last 24 Hours (Table) 09/04/24 09/05/24 09/05/24 Range/Units 18:38 00:08 06:00 WBC (3.8-10.6) k/uL RBC (3.80-5.40) m/uL Hgb (11.4-16.0) gm/dL Hct (34.0-46.0) % RDW (11.5-15.5) % Neutrophils # (1.3-7.7) k/uL Lymphocytes # (1.0-4.8) k/uL Carbon Dioxide (22-30) mmol/L BUN (7-17) mg/dL Glucose (74-99) mg/dL POC Glucose (mg/dL) 210 H 237 H 196 H (70-110) mg/dL Calcium (8.4-10.2) mg/dL Total Protein (6.3-8.2) g/dL Albumin (3.5-5.0) g/dL 09/05/24 09/05/24 09/05/24 Range/Units 07:40 07:40 11:48 WBC 18.1 H (3.8-10.6) k/uL RBC 2.86 L (3.80-5.40) m/uL Hgb 8.4 L (11.4-16.0) gm/dL Hct 26.8 L (34.0-46.0) % RDW 17.5 H (11.5-15.5) % Neutrophils # 17.3 H (1.3-7.7) k/uL Lymphocytes # 0.2 L (1.0-4.8) k/uL Carbon Dioxide 21 L (22-30) mmol/L BUN 24 H (7-17) mg/dL Glucose 195 H (74-99) mg/dL POC Glucose (mg/dL) 210 H (70-110) mg/dL Calcium 8.1 L (8.4-10.2) mg/dL Total Protein 5.2 L (6.3-8.2) g/dL Albumin 2.8 L (3.5-5.0) g/dL Assessment and Plan Plan: Acute hypoxic respiratory failure, currently on 5 L of oxygen by nasal cannula, oxygenation has been steadily improving Atrial fibrillation with rapid ventricular response, back into normal sinus rhythm. Currently on a combination of amiodarone 400 mg p.o. twice a day and metoprolol 50 mg p.o. twice daily and the patient is anticoagulation with Eliquis. Slightly tachycardic. squamous cell carcinoma of the lung, stage III, locally advanced and the patient has received a total of 11 rounds of radiation therapy, and 2 cycles of systemic chemotherapy. Bilateral consolidation/airspace disease involving the right midlung and the left lower lobe, consider atelectasis versus radiation pulmonary pneumonitis versus bacterial pneumonia. The procalcitonin level at time of admission was n ot elevated. Chronic obstructive pulmonary disease. Chronic nausea and dysphagia with difficulties in tolerating oral intake and the patient was given a PEG tube for enteral feeding nutritional support. Hearing disorder. Psoriatic arthritis. Former smoker. History of anxiety. History of ADHD. Plan: Obtain a follow-up chest x-ray in a.m. Titrate oxygen flow to maintain saturation above 90%. Currently on 5 L/min nasal cannula. Continue Symbicort Continue DuoNeb updrafts 4 times a day Continue cefepime and vancomycin as broad-spectrum antibiotic coverage. The patient procalcitonin level is not elevated IV Solu-Medrol 60 mg every 6 hours to be transition to a prednisone burst taper at time of discharge Hold radiation therapy for now Continue enteral feeding for nutritional support and the patient was given a PEG tube and currently the patient is receiving Jevity 1.5 at rate of 40 cc an hour Cardiac rhythm is sinus Continue amiodarone 400 mg p.o. twice daily and metoprolol 50 mg p.o. twice a day and anticoagulation with Eliquis Long-term prognosis poor based on above-mentioned comorbidities. Will continue to follow.
[2024-09-05 20:11] LABS: Glucose,Whole Blood 186 mg/dL (70-110)
[2024-09-05] MEDS: LOPERAMIDE 2 MG CAP PEG/G-TUBE PRN (20:29)
--- NOTE | 2024-09-06 04:54 | P.PN ---
Subjective Progress Note Date: 09/05/24 Patient seen and evaluated at bedside Patient tolerating tube feeding at 40cc/hr. Denies peg tube pain. Having bowel movements. Objective - Vital Signs Vital signs: Vital Signs Temp 97.5 F L 09/06/24 04:37 Pulse 78 09/06/24 04:37 Resp 22 09/06/24 04:37 BP 118/66 09/06/24 04:37 Pulse Ox 95 09/06/24 04:37 FiO2 Intake & Output 09/05/24 09/05/24 09/06/24 06:59 18:59 06:59 Output Total 150 Balance -150 Weight 78.6 kg Output: Urine 150 Other: Voiding Method Diaper Diaper Bedside Commode Diaper # Voids 1 1 # Bowel Movements 1 1 - Exam gen: nad cv: rrr pul: non labored abd: soft, non tender, non distended, peg tube site intact with no drainage - Labs CBC & Chem 7: 09/05/24 07:40 09/05/24 07:40 Labs: Abnormal Lab Results - Last 24 Hours (Table) 09/05/24 09/05/24 09/05/24 Range/Units 06:00 07:40 07:40 WBC 18.1 H (3.8-10.6) k/uL RBC 2.86 L (3.80-5.40) m/uL Hgb 8.4 L (11.4-16.0) gm/dL Hct 26.8 L (34.0-46.0) % RDW 17.5 H (11.5-15.5) % Neutrophils # 17.3 H (1.3-7.7) k/uL Lymphocytes # 0.2 L (1.0-4.8) k/uL Carbon Dioxide 21 L (22-30) mmol/L BUN 24 H (7-17) mg/dL Glucose 195 H (74-99) mg/dL POC Glucose (mg/dL) 196 H (70-110) mg/dL Calcium 8.1 L (8.4-10.2) mg/dL Total Protein 5.2 L (6.3-8.2) g/dL Albumin 2.8 L (3.5-5.0) g/dL 02/18/25 02/18/25 02/18/25 Range/Units 11:48 18:27 20:10 WBC (3.8-10.6) k/uL RBC (3.80-5.40) m/uL Hgb (11.4-16.0) gm/dL Hct (34.0-46.0) % RDW (11.5-15.5) % Neutrophils # (1.3-7.7) k/uL Lymphocytes # (1.0-4.8) k/uL Carbon Dioxide (22-30) mmol/L BUN (7-17) mg/dL Glucose (74-99) mg/dL POC Glucose (mg/dL) 210 H 208 H 186 H (70-110) mg/dL Calcium (8.4-10.2) mg/dL Total Protein (6.3-8.2) g/dL Albumin (3.5-5.0) g/dL Assessment and Plan Assessment: ASSESSMENT: 1. Squamous cell carcinoma of the lung and mediastinum 2. Dysphagia 3. Severe protein calorie malnutrition -tolerating tube feeds at 40cc/hr -advance per nutrition recommendations -stable for discharge from surgical standpoint Time with Patient: Less than 30
[2024-09-06 05:55] LABS: Glucose,Whole Blood 206 mg/dL (70-110)
--- NOTE | 2024-09-06 07:47 | XR ---
EXAMINATION TYPE: XR chest 1V DATE OF EXAM: 09/06/2024 6:26 AM COMPARISON: 09/03/2024 CLINICAL INDICATION: Female, 63 years old with history of pneumonia, TECHNIQUE: XR chest 1V view(s) obtained. FINDINGS: The heart size is normal. The pulmonary vasculature is normal. There is improvement of the right upper lobe infiltrate. Left lower lobe infiltrate has worsened. Sma ll left pleural effusion is present. IMPRESSION: 1. Worsening left lower lobe infiltrate and small effusion. Correlate for pneumonia. 2. Improving right upper lobe infiltrate [facility], , 09/06/2024 7:44 AM
[2024-09-06 08:46] LABS: African American GFR (CKD) >90 (>60 ml/min/1.73 sqM); Non-African American GFR(CKD) 80 (>60 ml/min/1.73 sqM)
[2024-09-06 09:36] LABS: Anisocytosis Slight; Basophils % (A) 0 %; Eosinophils % (A) 0 %; HCT 26.1 % (34.0-46.0); HGB 8.3 gm/dL (11.4-16.0); Hypochromasia Moderate; Lymphocytes # (A) 0.2 k/uL (1.0-4.8); Lymphocytes % (A) 1 %; MCH 30.1 pg (25.0-35.0); MCHC 31.8 g/dL (31.0-37.0); MCV 94.8 fL (80.0-100.0); Macrocytosis Slight; Mean Platelet Volume 9.3; Monocytes # (A) 0.4 k/uL (0-1.0); Monocytes % (A) 2 %; Neutrophils # (A) 20.1 k/uL (1.3-7.7); Neutrophils % (A) 97 %; Platelet Count 177 k/uL (150-450); RBC 2.75 m/uL (3.80-5.40); RDW 17.9 % (11.5-15.5); WBC 20.8 k/uL (3.8-10.6)
[2024-09-06 11:34] LABS: Glucose,Whole Blood 279 mg/dL (70-110)
--- NOTE | 2024-09-06 13:54 | P.PN ---
Subjective HISTORY OF PRESENT ILLNESS: This is a 63-year-old female with no previous cardiac history and does not follow with a community living coach. 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 Also history of COPD, chronic hypoxic respiratory failure on home O2 at 3 L nasal cannula. Patient was due for her third round of chemotherapy yesterday, but due to significant weakness, this was postponed until next week. Patient apparently was advised to go to the hospital for PEG tube placement. Patient is unable to take any oral medications at this time. We have been asked to evaluate the patient for A-fib with RVR. Patient has been started on Cardizem drip at 5 mg/h. She is currently running 160 bpm. Apparently patient has expressed desire to be hospice and DNR. Patient's is at the bedside and a daughter is on the phone and all questions have been answered. Daughter is very concerned that her pain issue is not being addressed and this has been referred to attending. Also daughter inquired about cardioversion which it was not advised at this time. Plan is for rate control management of the atrial fibrillation. Blood pressure 104/64, heart rate 160 on telemetry, pulse ox 96% on 4 L nasal cannula. -EKG: Atrial fibrillation 154 bpm, #2 atrial fibrillation with ventricular rate of 161. -Chest x-ray: Right midlung linear atelectasis. Known mediastinal mass. Right chest wall Mediport. COPD. -Laboratory studies: WBC 7.8, hemoglobin 8.3, platelet count 164. Troponin negative x 2. Electrolytes and renal function are normal. -Home cardiac medications: None Progress Notes 09/02/2024 Patient seen and examined at bedside this a.m. Patient converted out of atrial fibrillation. She is feeling much less short of breath, denies any chest pain chest pressure. Appears euvolemic. 09/03/2024 Patient is seen and examined at bedside this a.m. Patient went back into atrial fibrillation after the G-tube placement. Currently she is in atrial fibrillation RVR with heart rate around 130s. I will increase her beta-priyank and continue Cardizem drip. Pertinent cardiac testing Echo shows EF of 45%, hyperdynamic LV, No obvious regional wall motion abnormality, mild MR, no obvious intracardiac or extracardiac impression of cardiac structures however quality of the study was limited. 09/04/2024 Patient examined this morning at the bedside. Patient denies chest pain or pressure. Denies SOB. Telemetry reveals sinus mechanism. 09/05/2024 Patient examined this afternoon at the bedside. Patient currently denies any chest pain or pressure. She denies shortness of breath. Patient went back into [facility] with RVR. She remains in atrial fibrillation with a heart rate around 120 at the time of examination. Blood pressure stable with a recent reading of 108/ 67. She remains on 5 L high flow nasal cannula with oxygen saturations greater than 92%. 09/06/2024 Patient examined this morning at the bedside. Patient currently denies chest pain or pressure. Telemetry reveals sinus mechanism with a heart rate in the 70s. Blood pressure 133/67. PHYSICAL EXAM: VITAL SIGNS: Reviewed. GENERAL: Well-developed in no acute distress. NECK: Supple. No JVD or thyromegaly LUNGS: Respirations even and unlabored. Lungs essentially clear to auscultation bilaterally. HEART: Regular rate and rhythm. S1 and S2 heard. EXTREMITIES: Normal range of motion. No clubbing or cyanosis. Peripheral pulses intact. No lower extremity edema ASSESSMENT: New onset paroxysmal atrial fibrillation with RVR, present on admission Squamous cell carcinoma of the lung stage III, status post radiation and chemotherapy COPD Chronic hypoxic respiratory failure on home O2 at 3 L nasal cannula Anemia Status post EGD with PEG tube placement PLAN: Continue current dose of metoprolol tartrate 50 mg twice a day. Continue anticoagulation with Eliquis 5 mg twice a day Patient started on oral amiodarone 09/04/2024 400 mg twice a day Continue additional cardiac medications Continue telemetry monitoring Further recommendations pending patient course Nurse practitioner note has been reviewed by physician. Signing provider agrees with the documented findings, assessment, and plan of care documented by FILM AND VIDEO EDITOR as a scribe. Objective - Vital Signs Vital signs: Vital Signs Temp 97.3 F L 09/06/24 08:00 Pulse 68 09/06/24 08:27 Resp 16 09/06/24 08:00 BP 126/62 09/06/24 08:00 Pulse Ox 91 L 09/06/24 08:00 FiO2 Intake & Output 09/05/24 09/06/24 09/06/24 18:59 06:59 18:59 Output Total 150 Balance -150 Weight 79.5 kg Output: Urine 150 Other: Voiding Method Diaper Bedside Commode Bedside Commode Diaper Diaper # Voids 1 # Bowel Movements 1 - Labs CBC & Chem 7: 09/06/24 07:42 09/06/24 07:42 Labs: Abnormal Lab Results - Last 24 Hours (Table) 09/05/24 09/05/24 09/05/24 Range/Units 11:48 18:27 20:10 WBC (3.8-10.6) k/uL RBC (3.80-5.40) m/uL Hgb (11.4-16.0) gm/dL Hct (34.0-46.0) % RDW (11.5-15.5) % Neutrophils # (1.3-7.7) k/uL Lymphocytes # (1.0-4.8) k/uL POC Glucose (mg/dL) 210 H 208 H 186 H (70-110) mg/dL 09/06/24 09/06/24 Range/Units 05:53 07:42 WBC 20.8 H (3.8-10.6) k/uL RBC 2.75 L (3.80-5.40) m/uL Hgb 8.3 L (11.4-16.0) gm/dL Hct 26.1 L (34.0-46.0) % RDW 17.9 H (11.5-15.5) % Neutrophils # 20.1 H (1.3-7.7) k/uL Lymphocytes # 0.2 L (1.0-4.8) k/uL POC Glucose (mg/dL) 206 H (70-110) mg/dL
--- NOTE | 2024-09-06 15:40 | P.PN ---
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 Wooten in [facility] and Dr. Robledo in [place], chronic hypoxic respiratory failure secondary to COPD on 2 L of nasal cannula, who presented to the ED after she was encouraged to come here by her oncologist.She was supposed to receive her third round of chemo today however she has been very weak and was advised to come here and potentially get a PEG tube placed. She has been having increased difficulty swallowing and now is barely able to swallow liquids. She has also increased her oxygen requirements over the last week. She used to be on 2 L but for the last week has been requiring 3 L. She has been "coughing up bile" with an episode of hemoptysis about a week or two ago post radiation. The hemoptysis has resolved. Patient denying recent fever, abdominal pain, chest pain. She reports chills, severe fatigue, cough productive of a green-omar sputum (reported as "bile"), chest pressure, severe nausea, one episode of vomiting yesterday, dyspnea. Patient reports that IV Compazine is only thing that helps with her nausea. After the patient's left the room, the patient expressed a desire to be on hospice and to be a DNR/DNI stating that she wanted to fight at first but no longer has the energy to. patient was tachycardia, EKG showed A-fib with RVR, she was given Cardizem, started on IV heparin, cardiology consulted. Recommended to continue Cardizem, TTE ordered.EF 55%, trace pericardial effusion, mild mitral regurg, no obvious intracardiac mass or external compression of cardiac structures Hospice consult was placed, patient found that she would feel comfortably proceeding with hospice care although her family at bedside was highly encouraging to continue the treatment. Heme-onc consulted, general surgery consulted for PEG, cardiology consulted for new onset A-fib. Patient was seen by surgical team in the morning, declined any procedures done, later requested to be reevaluated per family request. PEG tube was placed on 09/02, no RD available over the weekend, patient was started on Jevity 1.5 at 10 cc/h 09/01 in the evening patient developed worsening SOB, chest x-ray was done and showed left lower lobe pneumonia or atelectasis, patient was started on cefepime and vancomycin, was given IV Lasix with symptoms improvement. Pulmonology consulted, patient continued on antibiotics, added Solu-Medrol, breathing treatment continued. 09/03: A-fib RVR, heart rate in 130s, BP soft with MAP of 68, now on high flow nasal cannula 9 L. Chest x-ray repeated, improved aeration of the left lung base with focal plateau right midlung contact this is in the right upper medial airspace opacities. 09/04: A-fib rate controlled, feels better, 8 Lnasal cannula. Cardiology following: Metoprolol tartrate 50 twice daily, continue Eliquis 5 twice daily, add oral amiodarone 400 mg twice a day, Lasix 20 daily oral. Viral panel negative. Started trickle feedings 09/05:Shortness of breath improved, now on 6 L nasal cannula converted to sinus rhythm, heart rate controlled . 09/06: Heart rate controlled, sinus, on 3 L, feeling better, pending clearance from cardiology and pulmonology for radiation therapy ,Subjective: Seen and examined at bedside patient just received pain medication and was somewhat somnolent, was still able to participate in conversation, she is feeling better, tolerates nutrition, shortness of breath improving Pertinent positives and negatives as discussed above, a complete review of systems was performed and all other systems are negative. Vitals Signs Reviewed. General: , ill-appearing Derm: [warm], [dry] Head: [atraumatic], [normocephalic], [symmetric] Eyes: [EOMI], [no lid lag], [anicteric sclera] Mouth: [no lip lesion], [mucus membranes moist] Cardiovascular: [S1S2 irregular, tachycardic Lungs: [CTA bilateral], diminished left lower basilar breath sounds] , [no accessory muscle use] Abdominal: [soft], [ nontender to palpation], [no guarding], [no appreciable organomegaly], bruised around PEG tube insertion site Ext: [no gross muscle atrophy], [no edema], [no contractures] Neuro: [ CN II-XI grossly intact], [no focal neuro deficits] Psych: [Alert], [oriented], [appropriate affect] Data Reviewed Today: Pertinent Labs: WBC WBC up to 20.8, hemoglobin stable 8.3, platelet count 177, blood glucose elevated Assessment and Plan: New onset A-fib with RVR -Cardiology consulted: Metoprolol tartrate 50 twice daily, continue Eliquis 5 twice daily, oral amiodarone 400 mg twice a day, Lasix 20 daily oral -TTE ordered, EF 55%, trace pericardial effusion, mild mitral regurg, no obvious intracardiac mass or external compression of cardiac structures Acute on chronic hypoxic respiratory failure secondary to COPD exacerbation, left lower lobe community-acquired pneumonia Steroid-induced hyperglycemia Steroid-induced leukocytosis -Continue breathing treatment, added Symbicort -Pulmonology following -Continue vancomycin and cefepime 2 g every 8 hours SOT 09/02 -Decreased Solu-Medrol 60 mg to every 12 hours -on 3 L NC today -SSI and Accu-Cheks, added Levemir 5 twice daily Stage III NSCLC Intractable nausea secondary to above, resolved Dysphagia secondary to above, possible component of mass effect status post PEG tube 09/02, advancing rate Hypoproteinemia, hypoalbuminemia secondary to above Chronic normocytic anemia -Continue IV Compazine -Per radoncology, if she is able to wean off Cardizem, could continue RT , needs cardio and pulm clearance -Surgery on board -Nutrition consulted for tube feeding, tolerating well -Phosphorus level ordered-normal DVT ppx: Eliquis Code status: full code Anticipated discharge place: Pending clinical course Anticipated discharge time: Pending clinical course Objective - Vital Signs Vital signs: Vital Signs Temp 97.7 F 09/06/24 11:59 Pulse 60 09/06/24 13:07 Resp 16 09/06/24 11:59 BP 133/67 09/06/24 11:59 Pulse Ox 96 09/06/24 11:59 FiO2 Intake & Output 09/05/24 09/06/24 09/06/24 18:59 06:59 18:59 Output Total 150 Balance -150 Weight 79.5 kg Output: Urine 150 Other: Voiding Method Diaper Bedside Commode Bedside Commode Diaper Diaper # Voids 1 # Bowel Movements 1 - Labs CBC & Chem 7: 09/06/24 07:42 09/06/24 07:42 Labs: Abnormal Lab Results - Last 24 Hours (Table) 09/05/24 09/05/24 09/06/24 Range/Units 18:27 20:10 05:53 WBC (3.8-10.6) k/uL RBC (3.80-5.40) m/uL Hgb (11.4-16.0) gm/dL Hct (34.0-46.0) % RDW (11.5-15.5) % Neutrophils # (1.3-7.7) k/uL Lymphocytes # (1.0-4.8) k/uL POC Glucose (mg/dL) 208 H 186 H 206 H (70-110) mg/dL 09/06/24 09/06/24 Range/Units 07:42 11:33 WBC 20.8 H (3.8-10.6) k/uL RBC 2.75 L (3.80-5.40) m/uL Hgb 8.3 L (11.4-16.0) gm/dL Hct 26.1 L (34.0-46.0) % RDW 17.9 H (11.5-15.5) % Neutrophils # 20.1 H (1.3-7.7) k/uL Lymphocytes # 0.2 L (1.0-4.8) k/uL POC Glucose (mg/dL) 279 H (70-110) mg/dL
[2024-09-06] MEDS: VANCOMYCIN 1,500 MG in SODIUM CHLORIDE 0.9% 500 ML 500 ML IVPB SCH (16:21)
[2024-09-06 16:40] LABS: Glucose,Whole Blood 149 mg/dL (70-110)
--- NOTE | 2024-09-06 18:37 | P.PN ---
Subjective Progress Note Date: 09/06/24 This is a 63-year-old female patient with a recent diagnosis of squamous cell lung cancer. She has undergone 11 radiation treatments here and 2 rounds of chemotherapy at [facility]. She presented here to the emergency room on August 31, 2024 with complaints of increasing shortness of breath, cough and congestion. She was also having difficulty in swallowing. She also was found to be in atrial fibrillation with a rapid ventricular response, currently in sinus. chest x-ray revealed development of a right midlung linear atelectasis. Known mediastinal mass. Right chest wall Mediport in place. Evidence of COPD. Count 10.1. Hemoglobin 8.3. Platelets 179. Sodium 137. Potassium 4.1. Bi carb 18. BUN 11. Creatinine 0.81. Glucose 99. She is seen today in consultation on the selective care unit. She is currently resting in bed. Awake and alert in mild respiratory distress. She is requiring 12 L high flow nasal cannula to maintain O2 saturations in the 90s. She is normally on home oxygen at 3 L. Arterial blood gases done yesterday on 60% FiO2 revealed a PaO2 of 77, pCO2 40, pH 7.38. She has a large mediastinal mass from her lung cancer compressing her esophagus causing dysphagia. She is undergoing PEG tube insertion today. Progress note dated September 03, 2024. 63-year-old female seen yesterday in consultation. The patient has a history of recently diagnosed squamous cell carcinoma of the lung. The patient has had 11 radiation treatments, 2 cycles of chemotherapy. She gets her radiation here, and her chemotherapy, at [facility]. The patient comes into the hospital, with complaints of shortness of breath, chest congestion, cough, difficulty swallowing. Yesterday, the patient had an EGD and PEG tube placed by surgery. The patient is currently not on any fluids. She is getting high flow oxygen, at 10 L. She continues on cefepime and vancomycin. Current laboratory data includes a white count 10.3, hemoglobin 7.5, hematocrit 23.9, platelet count 246,000. Sodium 138, potassium 4.3, chlorides 105, CO2 20, BUN 16, creatinine 0.74. Glucose is 143. Calcium 8. Albumin 2.8. Procalcitonin level 0.32. On 09/04/2024, the patient is being seen for a follow-up. Remains short of breath and is having frequent cough. Oxygenation is stable on 7 L of oxygen by nasal cannula with a pulse ox of 96%. Reviewed the series of chest x-rays that was done during the current hospitalization. The patient has areas of consolidation and airspace disease in the right midlung and the left lower lobe in addition to mediastinal fullness consistent with her underlying squamous cell carcinoma of the lung. The patient remains on DuoNeb nebulized treatments [id number]. The patient remains on Symbicort. The patient remains on IV Solu-Medrol 60 mg every 6 hours. The patient is also on a combination of cefepime and vancomycin. She is also noted to be in atrial fibrillation with rapid ventricular response at time of admission. The patient has an ejection fraction 45% with hyperdynamic LV without any significant wall motion abnormalities. There was mild mitral regurgitation. Her current cardiac rhythm seems to be sinus. The patient remains on anticoagulation with Eliquis 5 mg p.o. twice a day. Amiodarone was also added at a dose of 4 mg p.o. twice daily in combination with metoprolol 50 mg twice a day. No hemoptysis. No pleurisy. Chronic shortness of breath secondary to her advanced lung cancer. Meanwhile, the patient was started on enteral feeding for nutritional support and the patient is currently on Jevity 1.5 that is running at 10 cc an hour. On 09/05/2024, the patient is feeling essentially the same as yesterday. There has been interval improvement in the oxygenation the patient is currently on 5 L of O2 nasal cannula. No chest pain. No significant shortness of breath. No hemoptysis. No pleurisy. Remains on DuoNeb nebulized treatments [id number]. Remains on IV Solu-Medrol. Remains on broad-spectrum IV biotics and the patient remains on a combination of cefepime and vancomycin. Meanwhile, she is still having episodes of atrial fibrillation and further adjustments in the cardiac medications were done and the patient was placed on amiodarone 400 mg p.o. twice a day and metoprolol 50 mg p.o. twice a day patient is also on anticoagulation and the patient is currently on Eliquis. The white cell count of 18.1 with a hemoglobin 8.4 and a platelet count of 175. BUN is 24 with a creatinine of 0.7. Sodium levels at 137. LFTs are essentially within normal limits. The patient continues to receive enteral feeding for nutritional support. She is at rate of 40 cc an hour. On today's evaluation of 09/06/2024, the patient is on 3 L of oxygen by nasal cannula. Repeat chest x-ray was done and the patient continues to have mediastinal fullness, there is a left lower lobe infiltration and small effusion and improving right upper lobe infiltrate. The patient is doing well. The patient remains on IV cefepime and vancomycin. The patient remains on IV Solu- Medrol 60 mg every 12 hours. Cardiac rhythm is sinus. The patient is currently on amiodarone 400 mg p.o. twice a day, metoprolol 50 mg p.o. twice daily anticoagulation with Eliquis. Remains on Lasix 20 mg p.o. daily. Continues to receive enteral feeding for nutritional support. The white cell count of 20 with a hemoglobin 8.3 and a platelet count of 177. The rest of the electrolytes from yesterday were within normal limits. Renal function is stable. The viral 4 Plex has been negative. Objective - Vital Signs Vital signs: Vital Signs Temp 97.9 F 09/06/24 16:00 Pulse 68 09/06/24 16:36 Resp 16 09/06/24 16:00 BP 126/68 09/06/24 16:00 Pulse Ox 93 L 09/06/24 16:00 FiO2 Intake & Output 09/05/24 09/06/24 09/06/24 18:59 06:59 18:59 Output Total 150 Balance -150 Weight 79.5 kg Output: Urine 150 Other: Voiding Method Diaper Bedside Commode Bedside Commode Diaper Diaper # Voids 1 # Bowel Movements 1 - Exam No acute distress, oriented 3. Currently on 3 L high flow O2. The patient coughing has subsided and she seems to be much more comfortable and breathing is less labored. HEENT examination is grossly unremarkable. Mucous membranes are moist. No oral lesions. Neck supple. Full range of motion. No adenopathy thyromegaly or neck vein distention. Cardiovascular examination reveals regular rhythm rate. S1-S2 normal. No S3 or S4. No discernible murmur noted. Lungs reveal bilateral inspiratory and expiratory rhonchi and wheezes. Breath sounds are diminished. Cough is wet and congested. No crackles. Breath sounds are equal bilaterally. Abdomen soft bowel sounds are heard. No masses or tenderness. PEG tube is noted. Extremities are intact. No cyanosis clubbing or edema. Skin is without rash or lesion. Neurologic examination is brief but nonfocal. - Labs CBC & Chem 7: 09/06/24 07:42 09/06/24 07:42 Labs: Abnormal Lab Results - Last 24 Hours (Table) 09/05/24 09/06/24 09/06/24 Range/Units 20:10 05:53 07:42 WBC 20.8 H (3.8-10.6) k/uL RBC 2.75 L (3.80-5.40) m/uL Hgb 8.3 L (11.4-16.0) gm/dL Hct 26.1 L (34.0-46.0) % RDW 17.9 H (11.5-15.5) % Neutrophils # 20.1 H (1.3-7.7) k/uL Lymphocytes # 0.2 L (1.0-4.8) k/uL POC Glucose (mg/dL) 186 H 206 H (70-110) mg/dL 09/06/24 09/06/24 Range/Units 11:33 16:37 WBC (3.8-10.6) k/uL RBC (3.80-5.40) m/uL Hgb (11.4-16.0) gm/dL Hct (34.0-46.0) % RDW (11.5-15.5) % Neutrophils # (1.3-7.7) k/uL Lymphocytes # (1.0-4.8) k/uL POC Glucose (mg/dL) 279 H 149 H (70-110) mg/dL Assessment and Plan Plan: Acute hypoxic respiratory failure, currently on 3 L of oxygen by nasal cannula, oxygenation has been steadily improving Atrial fibrillation with rapid ventricular response, back into normal sinus rhythm. Currently on a combination of amiodarone 400 mg p.o. twice a day and metoprolol 50 mg p.o. twice daily and the patient is anticoagulation with Eliquis. The patient's current cardiac rhythm remains sinus. Squamous cell carcinoma of the lung, stage III, locally advanced and the patient has received a total of 11 rounds of radiation therapy, and 2 cycles of systemic chemotherapy. Bilateral consolidation/airspace disease involving the right midlung and the left lower lobe, consider atelectasis versus radiation pulmonary pneumonitis versus bacterial pneumonia. The procalcitonin level at time of admission was not elevated. Chronic obstructive pulmonary disease. Chronic nausea and dysphagia with difficulties in tolerating oral intake and the patient was given a PEG tube for enteral feeding nutritional support. Hearing disorder. Psoriatic arthritis. Former smoker. History of anxiety. History of ADHD. Plan: Obtain a follow-up chest x-ray in a.m. shows improvement in the right lung pulmonary filtration. There is some lateral infiltration left lung base Titrate oxygen flow to maintain saturation above 90%. Currently on 3 L/min nasal cannula. Continue Symbicort Continue DuoNeb updrafts 4 times a day Continue cefepime and vancomycin as broad-spectrum antibiotic coverage. The patient procalcitonin level is not elevated IV Solu-Medrol 60 mg every 6 hours to be transition to a prednisone burst taper at time of discharge Hold radiation therapy for now Continue enteral feeding for nutritional support and the patient was given a PEG tube and currently the patient is receiving Jevity 1.5 at rate of 40 cc an hour Cardiac rhythm is sinus Continue amiodarone 400 mg p.o. twice daily and metoprolol 50 mg p.o. twice a day and anticoagulation with Eliquis Long-term prognosis poor based on above-mentioned comorbidities. Will continue to follow.
[2024-09-06 20:23] LABS: Glucose,Whole Blood 196 mg/dL (70-110)
[2024-09-06] MEDS: methylPREDNISolone SOD SUCCI 125 MG/2 ML VIAL IV SCH (20:39)
[2024-09-06] MEDS: INSULIN DETEMIR (LEVEMIR) 100 UNIT/ML SYR SQ SCH (20:40)
[2024-09-07 06:15] LABS: Glucose,Whole Blood 207 mg/dL (70-110)
[2024-09-07 07:35] LABS: Anisocytosis Slight; Basophils # (A) 0.1 k/uL (0-0.2); Basophils % (A) 0 %; Eosinophils % (A) 0 %; HCT 27.2 % (34.0-46.0); HGB 8.1 gm/dL (11.4-16.0); Hypochromasia Marked; Lymphocytes # (A) 0.2 k/uL (1.0-4.8); Lymphocytes % (A) 1 %; MCH 29.2 pg (25.0-35.0); MCV 97.4 fL (80.0-100.0); Macrocytosis Slight; Mean Platelet Volume 8.9; Monocytes # (A) 0.6 k/uL (0-1.0); Monocytes % (A) 3 %; Neutrophils # (A) 22.1 k/uL (1.3-7.7); Neutrophils % (A) 95 %; Platelet Count 180 k/uL (150-450); RBC 2.79 m/uL (3.80-5.40); WBC 23.2 k/uL (3.8-10.6)
[2024-09-07 07:39] LABS: African American GFR (CKD) >90 (>60 ml/min/1.73 sqM); Anion Gap 11 mmol/L; Blood Urea Nitrogen 31 mg/dL (7-17); Calcium 8.3 mg/dL (8.4-10.2); Carbon Dioxide 22 mmol/L (22-30); Chloride 107 mmol/L (98-107); Glucose 189 mg/dL (74-99); Non-African American GFR(CKD) 84 (>60 ml/min/1.73 sqM); Potassium 3.2 mmol/L (3.5-5.1); Sodium 140 mmol/L (137-145)
[2024-09-07] MEDS ORDERED: Potassium Replacement Protocol 1 EACH MISC MISCELLANE PRN (08:05)
[2024-09-07] MEDS ORDERED: POTASSIUM BICARBONATE/CIT AC 20 MEQ TABLET.EFF NG-TUBE SCH (10:00)
[2024-09-07] MEDS: POTASSIUM BICARBONATE/CIT AC 20 MEQ TABLET.EFF NG-TUBE SCH (10:06)
[2024-09-07 11:35] LABS: Glucose,Whole Blood 176 mg/dL (70-110)
[2024-09-07] MEDS: VANCOMYCIN TROUGH DUE 1 EACH MISC MISCELLANE ONE (11:55)
--- NOTE | 2024-09-07 13:44 | P.PN ---
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 She has a past medical history of squamous cell carcinoma of the mediastinum stage IIIa followed by oncologist in [facility] status post 11 radiation treatments in [place] and [address] [facility]. Also history of COPD, chronic hypoxic respiratory failure on home O2 at 3 L nasal cannula. Patient was due for her third round of chemotherapy yesterday, but due to significant weakness, this was postponed until next week. Patient apparently was advised to go to the hospital for PEG tube placement. Patient is unable to take any oral medications at this time. We have been asked to evaluate the patient for A-fib with RVR. Patient has been started on Cardizem drip at 5 mg/h. She is currently running 160 bpm. Apparently patient has expressed desire to be hospice and DNR. Patient's is at the bedside and a daughter is on the phone and all questions have been answered. Daughter is very concerned that her pain issue is not being addressed and this has been referred to attending. Also daughter inquired about cardioversion which it was not advised at this time. Plan is for rate control management of the atrial fibrillation. Blood pressure 104/64, heart rate 160 on telemetry, pulse ox 96% on 4 L nasal cannula. -EKG: Atrial fibrillation 154 bpm, #2 atrial fibrillation with ventricular rate of 161. -Chest x-ray: Right midlung linear atelectasis. Known mediastinal mass. Right chest wall Mediport. COPD. -Laboratory studies: WBC 7.8, hemoglobin 8.3, platelet count 164. Troponin negative x 2. Electrolytes and renal function are normal. -Home cardiac medications: None Progress Notes 09/02/2024 Patient seen and examined at bedside this a.m. Patient converted out of atrial fibrillation. She is feeling much less short of breath, denies any chest pain chest pressure. Appears euvolemic. 09/03/2024 Patient is seen and examined at bedside this a.m. Patient went back into atrial fibrillation after the G-tube placement. Currently she is in atrial fibrillation RVR with heart rate around 130s. I will increase her beta-priyank and continue Cardizem drip. Pertinent cardiac testing Echo shows EF of 45%, hyperdynamic LV, No obvious regional wall motion abnormality, mild MR, no obvious intracardiac or extracardiac impression of cardiac structures however quality of the study was limited. 09/04/2024 Patient examined this morning at the bedside. Patient denies chest pain or pressure. Denies SOB. Telemetry reveals sinus mechanism. 09/05/2024 Patient examined this afternoon at the bedside. Patient currently denies any chest pain or pressure. She denies shortness of breath. Patient went back into [facility] with RVR. She remains in atrial fibrillation with a heart rate around 120 at the time of examination. Blood pressure stable with a recent reading of 108/ 67. She remains on 5 L high flow nasal cannula with oxygen saturations greater than 92%. 09/06/2024 Patient examined this morning at the bedside. Patient currently denies chest pain or pressure. Telemetry reveals sinus mechanism with a heart rate in the 70s. Blood pressure 133/67. 09/07/2024 Patient examined this afternoon at the bedside. Patient is sitting up in the chair. Patient denies chest pain or pressure. Patient reports worsening shortness of breath today. She has a frequent cough and reports having chest discomfort after coughing fits. Telemetry reveals sinus mechanism. PHYSICAL EXAM: VITAL SIGNS: Reviewed. GENERAL: Well-developed in no acute distress. NECK: Supple. No JVD or thyromegaly LUNGS: Respirations even and unlabored. Lungs with bilateral crackles and wheezing noted HEART: Regular rate and rhythm. S1 and S2 heard. EXTREMITIES: Normal range of motion. No clubbing or cyanosis. Peripheral pulses intact. No lower extremity edema ASSESSMENT: New onset paroxysmal atrial fibrillation with RVR, present on admission Squamous cell carcinoma of the lung stage III, status post radiation and chemotherapy COPD Chronic hypoxic respiratory failure on home O2 at 3 L nasal cannula Anemia Status post EGD with PEG tube placement PLAN: Continue current dose of metoprolol tartrate 50 mg twice a day. Continue anticoagulation with Eliquis 5 mg twice a day Patient started on oral amiodarone 09/04/2024 400 mg twice a day. Decrease to 200 mg twice a day after 1 week. Continue additional cardiac medications Continue telemetry monitoring We will sign off. Please reconsult if needed. Nurse practitioner note has been reviewed by physician. Signing provider agrees with the documented findings, assessment, and plan of care documented by ASSOCIATE FINANCIAL ANALYST as a scribe. Objective - Vital Signs Vital signs: Vital Signs Temp 97.5 F L 09/07/24 11:35 Pulse 72 09/07/24 12:52 Resp 14 09/07/24 11:35 BP 140/65 09/07/24 11:35 Pulse Ox 99 09/07/24 11:35 FiO2 Intake & Output 09/06/24 09/07/24 09/07/24 18:59 06:59 18:59 Weight 41.05 kg 80.7 kg Other: Voiding Method Bedside Commode Bedside Commode Diaper Diaper - Labs CBC & Chem 7: 09/07/24 06:27 09/07/24 06:27 Labs: Abnormal Lab Results - Last 24 Hours (Table) 09/06/24 09/06/24 09/07/24 Range/Units 16:37 20:21 06:13 WBC (3.8-10.6) k/uL RBC (3.80-5.40) m/uL Hgb (11.4-16.0) gm/dL Hct (34.0-46.0) % MCHC (31.0-37.0) g/dL RDW (11.5-15.5) % Neutrophils # (1.3-7.7) k/uL Lymphocytes # (1.0-4.8) k/uL Potassium (3.5-5.1) mmol/L BUN (7-17) mg/dL Glucose (74-99) mg/dL POC Glucose (mg/dL) 149 H 196 H 207 H (70-110) mg/dL Calcium (8.4-10.2) mg/dL 09/07/24 09/07/24 09/07/24 Range/Units 06:27 06:27 11:33 WBC 23.2 H (3.8-10.6) k/uL RBC 2.79 L (3.80-5.40) m/uL Hgb 8.1 L (11.4-16.0) gm/dL Hct 27.2 L (34.0-46.0) % MCHC 30.0 L (31.0-37.0) g/dL RDW 18.0 H (11.5-15.5) % Neutrophils # 22.1 H (1.3-7.7) k/uL Lymphocytes # 0.2 L (1.0-4.8) k/uL Potassium 3.2 L (3.5-5.1) mmol/L BUN 31 H (7-17) mg/dL Glucose 189 H (74-99) mg/dL POC Glucose (mg/dL) 176 H (70-110) mg/dL Calcium 8.3 L (8.4-10.2) mg/dL
--- NOTE | 2024-09-07 14:34 | P.PN ---
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 Wooten in [facility] and Dr. Robledo in [place], chronic hypoxic respiratory failure secondary to COPD on 2 L of nasal cannula, who presented to the ED after she was encouraged to come here by her oncologist.She was supposed to receive her third round of chemo today however she has been very weak and was advised to come here and potentially get a PEG tube placed. She has been having increased difficulty swallowing and now is barely able to swallow liquids. She has also increased her oxygen requirements over the last week. She used to be on 2 L but for the last week has been requiring 3 L. She has been "coughing up bile" with an episode of hemoptysis about a week or two ago post radiation. The hemoptysis has resolved. Patient denying recent fever, abdominal pain, chest pain. She reports chills, severe fatigue, cough productive of a green-omar sputum (reported as "bile"), chest pressure, severe nausea, one episode of vomiting yesterday, dyspnea. Patient reports that IV Compazine is only thing that helps with her nausea. After the patient's left the room, the patient expressed a desire to be on hospice and to be a DNR/DNI stating that she wanted to fight at first but no longer has the energy to. patient was tachycardia, EKG showed A-fib with RVR, she was given Cardizem, started on IV heparin, cardiology consulted. Recommended to continue Cardizem, TTE ordered.EF 55%, trace pericardial effusion, mild mitral regurg, no obvious intracardiac mass or external compression of cardiac structures Hospice consult was placed, patient found that she would feel comfortably proceeding with hospice care although her family at bedside was highly encouraging to continue the treatment. Heme-onc consulted, general surgery consulted for PEG, cardiology consulted for new onset A-fib. Patient was seen by surgical team in the morning, declined any procedures done, later requested to be reevaluated per family request. PEG tube was placed on 09/02, no RD available over the weekend, patient was started on Jevity 1.5 at 10 cc/h 09/01 in the evening patient developed worsening SOB, chest x-ray was done and showed left lower lobe pneumonia or atelectasis, patient was started on cefepime and vancomycin, was given IV Lasix with symptoms improvement. Pulmonology consulted, patient continued on antibiotics, added Solu-Medrol, breathing treatment continued. 09/03: A-fib RVR, heart rate in 130s, BP soft with MAP of 68, now on high flow nasal cannula 9 L. Chest x-ray repeated, improved aeration of the left lung base with focal plateau right midlung contact this is in the right upper medial airspace opacities. 09/04: A-fib rate controlled, feels better, 8 Lnasal cannula. Cardiology following: Metoprolol tartrate 50 twice daily, continue Eliquis 5 twice daily, add oral amiodarone 400 mg twice a day, Lasix 20 daily oral. Viral panel negative. Started trickle feedings 09/05:Shortness of breath improved, now on 6 L nasal cannula converted to sinus rhythm, heart rate controlled . 09/06: Heart rate controlled, sinus, on 3 L, feeling better, pending clearance from cardiology and pulmonology for radiation therapy 09/07: S/p radiation therapy 09/06, heart rate is controlled, feeling more short of breath, tries to be more active, now sitting up in the chair, tolerating tube feeds, afebrile. Leukocytosis is worsening, could be steroid-induced versus after radiation reactive; on day 5 of broad-spectrum antibiotics, can finish 7 d ays of antibiotics given her immunocompromise state ,Subjective: Seen and examined this morning, sitting up in the chair, patient's present during exam. Patient denies chest pain, continues of more shortness of breath, especially with minimal physical activity. She had radiation therapy yesterday. Pertinent positives and negatives as discussed above, a complete review of systems was performed and all other systems are negative. Vitals Signs Reviewed. General: , ill-appearing Derm: [warm], [dry] Head: [atraumatic], [normocephalic], [symmetric] Eyes: [EOMI], [no lid lag], [anicteric sclera] Mouth: [no lip lesion], [mucus membranes moist] Cardiovascular: [S1S2 irregular, tachycardic Lungs: [CTA bilateral], diminished left lower basilar breath sounds] , [no accessory muscle use] Abdominal: [soft], [ nontender to palpation], [no guarding], [no appreciable organomegaly], bruised around PEG tube insertion site Ext: [no gross muscle atrophy], [no edema], [no contractures] Neuro: [ CN II-XI grossly intact], [no focal neuro deficits] Psych: [Alert], [oriented], [appropriate affect] Data Reviewed Today: Pertinent Labs: Leukocytosis going up to 23.3, hemoglobin 8.1, platelet count normal, sodium 140, potassium 3.2, creatinine normal, glucose is 189 Assessment and Plan: New onset A-fib with RVR -Cardiology consulted: Metoprolol tartrate 50 twice daily, continue Eliquis 5 twice daily, oral amiodarone 400 mg twice a day, decrease to 200 mg twice daily after 1 week. Lasix 20 daily oral -TTE ordered, EF 55%, trace pericardial effusion, mild mitral regurg, no obvious intracardiac mass or external compression of cardiac structures Acute on chronic hypoxic respiratory failure secondary to COPD exacerbation, left lower lobe community-acquired pneumonia Steroid-induced hyperglycemia Steroid-induced leukocytosis -Continue breathing treatment, added Symbicort -Pulmonology following -Continue vancomycin and cefepime 2 g every 8 hours SOT 09/02, plan for 7 days given ongoing leukocytosis despite tapering steroids -Decreased Solu-Medrol 60 mg to every 12 hours -on 3 L NC today -SSI and Accu-Cheks, added Levemir 5 twice daily, increase to 7 twice daily Stage III NSCLC Intractable nausea secondary to above, resolved Dysphagia secondary to above, possible component of mass effect status post PEG tube 09/02, advancing rate Hypoproteinemia, hypoalbuminemia secondary to above Chronic normocytic anemia -Continue IV Compazine -Radiation oncology and oncology following, status post RT therapy 09/06 -Surgery on board -Nutrition consulted for tube feeding, tolerating well, at goal -Phosphorus level ordered-normal -Discussed with RN, social work Hypokalemia: Replaced, follow-up repeat BMP in the morning DVT ppx: Eliquis Code status: full code Anticipated discharge place: Pending clinical course Anticipated discharge time: Pending clinical course Objective - Vital Signs Vital signs: Vital Signs Temp 97.5 F L 09/07/24 11:35 Pulse 72 09/07/24 12:52 Resp 14 09/07/24 11:35 BP 140/65 09/07/24 11:35 Pulse Ox 99 09/07/24 11:35 FiO2 Intake & Output 09/06/24 09/07/24 09/07/24 18:59 06:59 18:59 Weight 41.05 kg 80.7 kg Other: Voiding Method Bedside Commode Bedside Commode Bedside Commode Diaper Diaper Diaper - Labs CBC & Chem 7: 09/07/24 06:27 09/07/24 06:27 Labs: Abnormal Lab Results - Last 24 Hours (Table) 09/06/24 09/06/24 09/07/24 Range/Units 16:37 20:21 06:13 WBC (3.8-10.6) k/uL RBC (3.80-5.40) m/uL Hgb (11.4-16.0) gm/dL Hct (34.0-46.0) % MCHC (31.0-37.0) g/dL RDW (11.5-15.5) % Neutrophils # (1.3-7.7) k/uL Lymphocytes # (1.0-4.8) k/uL Potassium (3.5-5.1) mmol/L BUN (7-17) mg/dL Glucose (74-99) mg/dL POC Glucose (mg/dL) 149 H 196 H 207 H (70-110) mg/dL Calcium (8.4-10.2) mg/dL 09/07/24 09/07/24 09/07/24 Range/Units 06:27 06:27 11:33 WBC 23.2 H (3.8-10.6) k/uL RBC 2.79 L (3.80-5.40) m/uL Hgb 8.1 L (11.4-16.0) gm/dL Hct 27.2 L (34.0-46.0) % MCHC 30.0 L (31.0-37.0) g/dL RDW 18.0 H (11.5-15.5) % Neutrophils # 22.1 H (1.3-7.7) k/uL Lymphocytes # 0.2 L (1.0-4.8) k/uL Potassium 3.2 L (3.5-5.1) mmol/L BUN 31 H (7-17) mg/dL Glucose 189 H (74-99) mg/dL POC Glucose (mg/dL) 176 H (70-110) mg/dL Calcium 8.3 L (8.4-10.2) mg/dL
[2024-09-07 16:10] LABS: Glucose,Whole Blood 183 mg/dL (70-110)
--- NOTE | 2024-09-07 17:24 | P.PN ---
Subjective Progress Note Date: 09/07/24 Principal diagnosis: Metastatic, Non small cell squamous cell lung carcinoma, treatment side effects In f/u today pt is in chair, states she has been to bathroom, tired easily, to lerating tube feed, no new c/o. Radiation resumed yesterday. She is on abx for pneumonia. Objective - Vital Signs Vital signs: Vital Signs Temp 97.5 F L 09/07/24 11:35 Pulse 80 09/07/24 16:37 Resp 14 09/07/24 11:35 BP 140/65 09/07/24 11:35 Pulse Ox 99 09/07/24 11:35 FiO2 Intake & Output 09/06/24 09/07/24 09/07/24 18:59 06:59 18:59 Weight 41.05 kg 80.7 kg Other: Voiding Method Bedside Commode Bedside Commode Bedside Commode Diaper Diaper Diaper # Bowel Movements 2 - Constitutional General appearance: Present: average body habitus, cooperative, mild distress - EENT Eyes: Present: anicteric sclerae, EOMI - Respiratory Respiratory: left: diminished, bilateral: rhonchi (R>L) - Cardiovascular Rhythm: regular Heart sounds: normal: S1, S2 Abnormal Heart Sounds: Absent: systolic murmur, diastolic murmur, rub, S3 Gallop, S4 Gallop, click, other - Peripheral edema leg Peripheral Edema: bilateral: None - Neurologic Neurologic: Present: CNII-XII intact - Musculoskeletal Musculoskeletal: Present: generalized weakness - Psychiatric Psychiatric: Present: A&O x's 3, appropriate affect, intact judgment & insight - Labs CBC & Chem 7: 09/07/24 06:27 09/07/24 06:27 Labs: Abnormal Lab Results - Last 24 Hours (Table) 09/06/24 09/07/24 09/07/24 Range/Units 20:21 06:13 06:27 WBC 23.2 H (3.8-10.6) k/uL RBC 2.79 L (3.80-5.40) m/uL Hgb 8.1 L (11.4-16.0) gm/dL Hct 27.2 L (34.0-46.0) % MCHC 30.0 L (31.0-37.0) g/dL RDW 18.0 H (11.5-15.5) % Neutrophils # 22.1 H (1.3-7.7) k/uL Lymphocytes # 0.2 L (1.0-4.8) k/uL Potassium (3.5-5.1) mmol/L BUN (7-17) mg/dL Glucose (74-99) mg/dL POC Glucose (mg/dL) 196 H 207 H (70-110) mg/dL Calcium (8.4-10.2) mg/dL 09/07/24 09/07/24 09/07/24 Range/Units 06:27 11:33 16:08 WBC (3.8-10.6) k/uL RBC (3.80-5.40) m/uL Hgb (11.4-16.0) gm/dL Hct (34.0-46.0) % MCHC (31.0-37.0) g/dL RDW (11.5-15.5) % Neutrophils # (1.3-7.7) k/uL Lymphocytes # (1.0-4.8) k/uL Potassium 3.2 L (3.5-5.1) mmol/L BUN 31 H (7-17) mg/dL Glucose 189 H (74-99) mg/dL POC Glucose (mg/dL) 176 H 183 H (70-110) mg/dL Calcium 8.3 L (8.4-10.2) mg/dL Assessment and Plan (1) Dysphagia Current Visit: Yes Status: Acute Priority: High Code(s): R13.10 - DYSPHAGIA, UNSPECIFIED SNOMED Code(s): 47366318 (2) Squamous cell carcinoma lung Current Visit: Yes Status: Acute Priority: High Code(s): C34.90 - MALIGNANT NEOPLASM OF UNSP PART OF UNSP BRONCHUS OR LUNG SNOMED Code(s): 339628270 Plan: N/V, dysphagia, poor oral intake -Chest x-ray on admit showed development of right lung linear atelectasis. Known mediastinal mass. COPD changes. -Medications for symptoms ordered, pt doing much better. Odynophagia less. Pending swallow eval for recommendation -PEG tube placed, tolerating tube feeds at this time -[place] that pt symptoms are 2/2 rebound inflammation of mass abutting esophagus interfering with motility. A fib with RVR -Rate controlled per notes -Cardiology following Squamous cell carcinoma of lung -Oncology history as stated in consult -During last admit, pt was started on radiation and received cycle 1 of carbo/taxol. Since discharge pt has continued on RT, and completed cycle 2 of carbo/taxol on 08/24. Cycle 3 held due to progressing weakness and n/v. -Spoke with Rad Onc. They plan to continue XRT at this time-as long as cleared by Cardiology and Pulmonary -Chemo on hold until acutely recovered. -Did get Oncology care transferred locally. Appt in DC plan. -Pt reports her treatment was usually on . Since pt will have missed 2 treatments by this , we will plan to resume pt on treatment as soon as she can. Pt and family agree with that plan
--- NOTE | 2024-09-07 18:57 | P.PN ---
Subjective Progress Note Date: 09/07/24 This is a 63-year-old female patient with a recent diagnosis of squamous cell lung cancer. She has undergone 11 radiation treatments here and 2 rounds of chemotherapy at [facility]. She presented here to the emergency room on August 31, 2024 with complaints of increasing shortness of breath, cough and congestion. She was also having difficulty in swallowing. She also was found to be in atrial fibrillation with a rapid ventricular response, currently in sinus. chest x-ray revealed development of a right midlung linear atelectasis. Known mediastinal mass. Right chest wall Mediport in place. Evidence of COPD. Count 10.1. Hemoglobin 8.3. Platelets 179. Sodium 137. Potassium 4.1. Bi carb 18. BUN 11. Creatinine 0.81. Glucose 99. She is seen today in consultation on the selective care unit. She is currently resting in bed. Awake and alert in mild respiratory distress. She is requiring 12 L high flow nasal cannula to maintain O2 saturations in the 90s. She is normally on home oxygen at 3 L. Arterial blood gases done yesterday on 60% FiO2 revealed a PaO2 of 77, pCO2 40, pH 7.38. She has a large mediastinal mass from her lung cancer compressing her esophagus causing dysphagia. She is undergoing PEG tube insertion today. Progress note dated September 03, 2024. 63-year-old female seen yesterday in consultation. The patient has a history of recently diagnosed squamous cell carcinoma of the lung. The patient has had 11 radiation treatments, 2 cycles of chemotherapy. She gets her radiation here, and her chemotherapy, at [facility]. The patient comes into the hospital, with complaints of shortness of breath, chest congestion, cough, difficulty swallowing. Yesterday, the patient had an EGD and PEG tube placed by surgery. The patient is currently not on any fluids. She is getting high flow oxygen, at 10 L. She continues on cefepime and vancomycin. Current laboratory data includes a white count 10.3, hemoglobin 7.5, hematocrit 23.9, platelet count 246,000. Sodium 138, potassium 4.3, chlorides 105, CO2 20, BUN 16, creatinine 0.74. Glucose is 143. Calcium 8. Albumin 2.8. Procalcitonin level 0.32. On 09/04/2024, the patient is being seen for a follow-up. Remains short of breath and is having frequent cough. Oxygenation is stable on 7 L of oxygen by nasal cannula with a pulse ox of 96%. Reviewed the series of chest x-rays that was done during the current hospitalization. The patient has areas of consolidation and airspace disease in the right midlung and the left lower lobe in addition to mediastinal fullness consistent with her underlying squamous cell carcinoma of the lung. The patient remains on DuoNeb nebulized treatments [id number]. The patient remains on Symbicort. The patient remains on IV Solu-Medrol 60 mg every 6 hours. The patient is also on a combination of cefepime and vancomycin. She is also noted to be in atrial fibrillation with rapid ventricular response at time of admission. The patient has an ejection fraction 45% with hyperdynamic LV without any significant wall motion abnormalities. There was mild mitral regurgitation. Her current cardiac rhythm seems to be sinus. The patient remains on anticoagulation with Eliquis 5 mg p.o. twice a day. Amiodarone was also added at a dose of 4 mg p.o. twice daily in combination with metoprolol 50 mg twice a day. No hemoptysis. No pleurisy. Chronic shortness of breath secondary to her advanced lung cancer. Meanwhile, the patient was started on enteral feeding for nutritional support and the patient is currently on Jevity 1.5 that is running at 10 cc an hour. On 09/05/2024, the patient is feeling essentially the same as yesterday. There has been interval improvement in the oxygenation the patient is currently on 5 L of O2 nasal cannula. No chest pain. No significant shortness of breath. No hemoptysis. No pleurisy. Remains on DuoNeb nebulized treatments [id number]. Remains on IV Solu-Medrol. Remains on broad-spectrum IV biotics and the patient remains on a combination of cefepime and vancomycin. Meanwhile, she is still having episodes of atrial fibrillation and further adjustments in the cardiac medications were done and the patient was placed on amiodarone 400 mg p.o. twice a day and metoprolol 50 mg p.o. twice a day patient is also on anticoagulation and the patient is currently on Eliquis. The white cell count of 18.1 with a hemoglobin 8.4 and a platelet count of 175. BUN is 24 with a creatinine of 0.7. Sodium levels at 137. LFTs are essentially within normal limits. The patient continues to receive enteral feeding for nutritional support. She is at rate of 40 cc an hour. On today's evaluation of 09/06/2024, the patient is on 3 L of oxygen by nasal cannula. Repeat chest x-ray was done and the patient continues to have mediastinal fullness, there is a left lower lobe infiltration and small effusion and improving right upper lobe infiltrate. The patient is doing well. The patient remains on IV cefepime and vancomycin. The patient remains on IV Solu- Medrol 60 mg every 12 hours. Cardiac rhythm is sinus. The patient is currently on amiodarone 400 mg p.o. twice a day, metoprolol 50 mg p.o. twice daily anticoagulation with Eliquis. Remains on Lasix 20 mg p.o. daily. Continues to receive enteral feeding for nutritional support. The white cell count of 20 with a hemoglobin 8.3 and a platelet count of 177. The rest of the electrolytes from yesterday were within normal limits. Renal function is stable. The viral 4 Plex has been negative. On 09/07/2024, the patient is comfortable on 2 L of oxygen by nasal cannula. She underwent a session of palliative radiation therapy to her chest yesterday. This was done locally at our radiation oncology department. She has no hemoptysis. No interval worsening shortness of breath. Chest x-ray from 09/06/2024 showed some improvement of the bilateral pulmonary filtrates. She remains on DuoNeb updrafts. She remains on Symbicort. She remains on IV Solu- Medrol. She remains in normal sinus rhythm. She is on anticoagulation with Eliquis. She is also on a combination of amiodarone 200 mg p.o. twice a day and metoprolol 50 mg p.o. twice a day. She is receiving Lasix 20 mg p.o. daily. She is also on enteral feeding for nutritional support which is up to 60 cc an hour and the patient is tolerating the feeding well. The white cell count of 23 with a hemoglobin of 8.1 and a platelet count of 180. Sodium is at 140, BUN 31 with a creatinine of 0.7. She is able to sit up in a chair. Exercise capacity is quite limited. Third cycle of systemic chemotherapy has been held as the patient is currently hospitalized. Chemotherapy is to resume following recovery. Objective - Vital Signs Vital signs: Vital Signs Temp 97.7 F 09/07/24 07:47 Pulse 80 09/07/24 09:29 Resp 15 09/07/24 07:47 BP 141/63 09/07/24 07:47 Pulse Ox 95 09/07/24 07:47 FiO2 Intake & Output 09/06/24 09/07/24 09/07/24 18:59 06:59 18:59 Weight 41.05 kg Other: Voiding Method Bedside Commode Bedside Commode Diaper Diaper - Exam No acute distress, oriented 3. Currently on 3 L high flow O2. The patient coughing has subsided and she seems to be much more comfortable and breathing is less labored. HEENT examination is grossly unremarkable. Mucous membranes are moist. No oral lesions. Neck supple. Full range of motion. No adenopathy thyromegaly or neck vein distention. Cardiovascular examination reveals regular rhythm rate. S1-S2 normal. No S3 or S4. No discernible murmur noted. Lungs reveal bilateral inspiratory and expiratory rhonchi and wheezes. Breath sounds are diminished. Cough is wet and congested. No crackles. Breath sounds are equal bilaterally. Abdomen soft bowel sounds are heard. No masses or tenderness. PEG tube is noted. Extremities are intact. No cyanosis clubbing or edema. Skin is without rash or lesion. Neurologic examination is brief but nonfocal. - Labs CBC & Chem 7: 09/07/24 06:27 09/07/24 06:27 Labs: Abnormal Lab Results - Last 24 Hours (Table) 09/06/24 09/06/24 09/06/24 Range/Units 11:33 16:37 20:21 WBC (3.8-10.6) k/uL RBC (3.80-5.40) m/uL Hgb (11.4-16.0) gm/dL Hct (34.0-46.0) % MCHC (31.0-37.0) g/dL RDW (11.5-15.5) % Neutrophils # (1.3-7.7) k/uL Lymphocytes # (1.0-4.8) k/uL Potassium (3.5-5.1) mmol/L BUN (7-17) mg/dL Glucose (74-99) mg/dL POC Glucose (mg/dL) 279 H 149 H 196 H (70-110) mg/dL Calcium (8.4-10.2) mg/dL 09/07/24 09/07/24 09/07/24 Range/Units 06:13 06:27 06:27 WBC 23.2 H (3.8-10.6) k/uL RBC 2.79 L (3.80-5.40) m/uL Hgb 8.1 L (11.4-16.0) gm/dL Hct 27.2 L (34.0-46.0) % MCHC 30.0 L (31.0-37.0) g/dL RDW 18.0 H (11.5-15.5) % Neutrophils # 22.1 H (1.3-7.7) k/uL Lymphocytes # 0.2 L (1.0-4.8) k/uL Potassium 3.2 L (3.5-5.1) mmol/L BUN 31 H (7-17) mg/dL Glucose 189 H (74-99) mg/dL POC Glucose (mg/dL) 207 H (70-110) mg/dL Calcium 8.3 L (8.4-10.2) mg/dL Assessment and Plan Plan: Acute hypoxic respiratory failure, currently on 3 L of oxygen by nasal cannula, oxygenation has been steadily improving Atrial fibrillation with rapid ventricular response, back into normal sinus rhythm. Currently on a combination of amiodarone 400 mg p.o. twice a day and metoprolol 50 mg p.o. twice daily and the patient is anticoagulation with Eliquis. The patient's current cardiac rhythm remains sinus. Squamous cell carcinoma of the lung, stage III, locally advanced and the patient has received a total of 11 rounds of radiation therapy, and 2 cycles of systemic chemotherapy. Bilateral consolidation/airspace disease involving the right midlung and the left lower lobe, consider atelectasis versus radiation pulmonary pneumonitis versus bacterial pneumonia. The procalcitonin level at time of admission was not elevated. Chronic obstructive pulmonary disease. Chronic nausea and dysphagia with difficulties in tolerating oral intake and the patient was given a PEG tube for enteral feeding nutritional support. Hearing disorder. Psoriatic arthritis. Former smoker. History of anxiety. History of ADHD. Plan: Clinically stable Bilateral radiation therapy has been resumed and the patient received a session yesterday. Another session is to follow possibly today. This will be discussed further with radiation oncology Titrate oxygen flow to maintain saturation above 90%. Currently on 3 L/min nasal cannula. Continue Symbicort Continue DuoNeb updrafts 4 times a day Continue cefepime and vancomycin as broad-spectrum antibiotic coverage. The patient procalcitonin level is not elevated IV Solu-Medrol 60 mg every 6 hours to be transition to a prednisone burst taper at time of discharge Continue enteral feeding for nutritional support and the patient was given a PEG tube and currently the patient is receiving Jevity 1.5 at rate of 60 cc an hour Cardiac rhythm is sinus Continue amiodarone 400 mg p.o. twice daily and metoprolol 50 mg p.o. twice a day and anticoagulation with Eliquis Long-term prognosis poor based on above-mentioned comorbidities. Will continue to follow. Time with Patient: Greater than 30
[2024-09-07 20:10] LABS: Glucose,Whole Blood 182 mg/dL (70-110)
[2024-09-07] MEDS ORDERED: INSULIN DETEMIR (LEVEMIR) 100 UNIT/ML SYR SQ SCH (21:00)
[2024-09-07] MEDS: INSULIN GLARGINE (LANTUS) 100 UNIT/ML SYR SQ SCH (21:21)
--- NOTE | 2024-09-07 21:34 | XR ---
EXAMINATION TYPE: XR chest 1V portable DATE OF EXAM: 09/07/2024 9:19 PM COMPARISON: Chest radiographs from 09/06/2024 CLINICAL INDICATION: Female, 63 years old with history of interval change; [facility] TECHNIQUE: XR chest 1V portable Frontal view of the chest. FINDINGS: Lungs/Pleura: Airspace opacities in the right midlung and left lower lobe There is no evidence of ple ural effusion, focal consolidation, or pneumothorax. Pulmonary vascularity: Unremarkable. Heart/mediastinum: Cardiomediastinal silhouette is unremarkable. Musculoskeletal: No acute osseous pathology. Other findings: Right Ciouki-s-Osfs with tip terminating in the cavoatrial junction. IMPRESSION: Right midlung and left lower lung airspace opacities correlate for pneumonia. [facility], , 09/07/2024 9:31 PM
[2024-09-08 06:13] LABS: Glucose,Whole Blood 208 mg/dL (70-110)
[2024-09-08 06:49] LABS: Anisocytosis Slight; Basophils % (A) 0 %; Eosinophils % (A) 0 %; HCT 26.5 % (34.0-46.0); HGB 8.4 gm/dL (11.4-16.0); Hypochromasia Marked; Lymphocytes # (A) 0.2 k/uL (1.0-4.8); Lymphocytes % (A) 1 %; MCH 30.2 pg (25.0-35.0); MCHC 31.9 g/dL (31.0-37.0); MCV 94.9 fL (80.0-100.0); Macrocytosis Slight; Mean Platelet Volume 8.6; Monocytes # (A) 0.8 k/uL (0-1.0); Monocytes % (A) 4 %; Neutrophils # (A) 21.8 k/uL (1.3-7.7); Neutrophils % (A) 95 %; Platelet Count 198 k/uL (150-450); RBC 2.79 m/uL (3.80-5.40); RDW 18.1 % (11.5-15.5)
[2024-09-08 06:59] LABS: African American GFR (CKD) >90 (>60 ml/min/1.73 sqM); Anion Gap 7 mmol/L; Blood Urea Nitrogen 30 mg/dL (7-17); Calcium 8.3 mg/dL (8.4-10.2); Carbon Dioxide 28 mmol/L (22-30); Chloride 105 mmol/L (98-107); Glucose 195 mg/dL (74-99); Non-African American GFR(CKD) >90 (>60 ml/min/1.73 sqM); Potassium 4.1 mmol/L (3.5-5.1); Sodium 140 mmol/L (137-145)
--- NOTE | 2024-09-08 10:03 | XR ---
EXAMINATION TYPE: XR chest 1V portable DATE OF EXAM: 09/08/2024 9:19 AM COMPARISON: 09/07/2024 CLINICAL INDICATION: Female, 63 years old with history of follow up, TECHNIQUE: XR chest 1V portable view(s) obtained. FINDINGS: The heart size is mildly prominent. The pulmonary vasculature is prominent. Comparison the right perihilar and upper lobe. Some mild infiltrates in the upper and lower left lung . IMPRESSION: 1. Clinical correlation for congestive heart failure and pulmonary edema is recommended. Findings are similar to comparison [facility], , 09/08/2024 10:01 AM
[2024-09-08 12:21] LABS: Glucose,Whole Blood 160 mg/dL (70-110)
[2024-09-08] MEDS: predniSONE 20 MG TAB PO SCH (13:04)
[2024-09-08] MEDS: FUROSEMIDE 10 MG/ML 4 ML VIAL IV STA (13:23)
--- NOTE | 2024-09-08 15:46 | P.PN ---
Subjective Progress Note Date: 09/08/24 This is a 63-year-old female patient with a recent diagnosis of squamous cell lung cancer. She has undergone 11 radiation treatments here and 2 rounds of chemotherapy at [facility]. She presented here to the emergency room on August 31, 2024 with complaints of increasing shortness of breath, cough and congestion. She was also having difficulty in swallowing. She also was found to be in atrial fibrillation with a rapid ventricular response, currently in sinus. chest x-ray revealed development of a right midlung linear atelectasis. Known mediastinal mass. Right chest wall Mediport in place. Evidence of COPD. Count 10.1. Hemoglobin 8.3. Platelets 179. Sodium 137. Potassium 4.1. Bi carb 18. BUN 11. Creatinine 0.81. Glucose 99. She is seen today in consultation on the selective care unit. She is currently resting in bed. Awake and alert in mild respiratory distress. She is requiring 12 L high flow nasal cannula to maintain O2 saturations in the 90s. She is normally on home oxygen at 3 L. Arterial blood gases done yesterday on 60% FiO2 revealed a PaO2 of 77, pCO2 40, pH 7.38. She has a large mediastinal mass from her lung cancer compressing her esophagus causing dysphagia. She is undergoing PEG tube insertion today. Progress note dated September 03, 2024. 63-year-old female seen yesterday in consultation. The patient has a history of recently diagnosed squamous cell carcinoma of the lung. The patient has had 11 radiation treatments, 2 cycles of chemotherapy. She gets her radiation here, and her chemotherapy, at [facility]. The patient comes into the hospital, with complaints of shortness of breath, chest congestion, cough, difficulty swallowing. Yesterday, the patient had an EGD and PEG tube placed by surgery. The patient is currently not on any fluids. She is getting high flow oxygen, at 10 L. She continues on cefepime and vancomycin. Current laboratory data includes a white count 10.3, hemoglobin 7.5, hematocrit 23.9, platelet count 246,000. Sodium 138, potassium 4.3, chlorides 105, CO2 20, BUN 16, creatinine 0.74. Glucose is 143. Calcium 8. Albumin 2.8. Procalcitonin level 0.32. On 09/04/2024, the patient is being seen for a follow-up. Remains short of breath and is having frequent cough. Oxygenation is stable on 7 L of oxygen by nasal cannula with a pulse ox of 96%. Reviewed the series of chest x-rays that was done during the current hospitalization. The patient has areas of consolidation and airspace disease in the right midlung and the left lower lobe in addition to mediastinal fullness consistent with her underlying squamous cell carcinoma of the lung. The patient remains on DuoNeb nebulized treatments [id number]. The patient remains on Symbicort. The patient remains on IV Solu-Medrol 60 mg every 6 hours. The patient is also on a combination of cefepime and vancomycin. She is also noted to be in atrial fibrillation with rapid ventricular response at time of admission. The patient has an ejection fraction 45% with hyperdynamic LV without any significant wall motion abnormalities. There was mild mitral regurgitation. Her current cardiac rhythm seems to be sinus. The patient remains on anticoagulation with Eliquis 5 mg p.o. twice a day. Amiodarone was also added at a dose of 4 mg p.o. twice daily in combination with metoprolol 50 mg twice a day. No hemoptysis. No pleurisy. Chronic shortness of breath secondary to her advanced lung cancer. Meanwhile, the patient was started on enteral feeding for nutritional support and the patient is currently on Jevity 1.5 that is running at 10 cc an hour. On 09/05/2024, the patient is feeling essentially the same as yesterday. There has been interval improvement in the oxygenation the patient is currently on 5 L of O2 nasal cannula. No chest pain. No significant shortness of breath. No hemoptysis. No pleurisy. Remains on DuoNeb nebulized treatments [id number]. Remains on IV Solu-Medrol. Remains on broad-spectrum IV biotics and the patient remains on a combination of cefepime and vancomycin. Meanwhile, she is still having episodes of atrial fibrillation and further adjustments in the cardiac medications were done and the patient was placed on amiodarone 400 mg p.o. twice a day and metoprolol 50 mg p.o. twice a day patient is also on anticoagulation and the patient is currently on Eliquis. The white cell count of 18.1 with a hemoglobin 8.4 and a platelet count of 175. BUN is 24 with a creatinine of 0.7. Sodium levels at 137. LFTs are essentially within normal limits. The patient continues to receive enteral feeding for nutritional support. She is at rate of 40 cc an hour. On today's evaluation of 09/06/2024, the patient is on 3 L of oxygen by nasal cannula. Repeat chest x-ray was done and the patient continues to have mediastinal fullness, there is a left lower lobe infiltration and small effusion and improving right upper lobe infiltrate. The patient is doing well. The patient remains on IV cefepime and vancomycin. The patient remains on IV Solu- Medrol 60 mg every 12 hours. Cardiac rhythm is sinus. The patient is currently on amiodarone 400 mg p.o. twice a day, metoprolol 50 mg p.o. twice daily anticoagulation with Eliquis. Remains on Lasix 20 mg p.o. daily. Continues to receive enteral feeding for nutritional support. The white cell count of 20 with a hemoglobin 8.3 and a platelet count of 177. The rest of the electrolytes from yesterday were within normal limits. Renal function is stable. The viral 4 Plex has been negative. On 09/07/2024, the patient is comfortable on 2 L of oxygen by nasal cannula. She underwent a session of palliative radiation therapy to her chest yesterday. This was done locally at our radiation oncology department. She has no hemoptysis. No interval worsening shortness of breath. Chest x-ray from 09/06/2024 showed some improvement of the bilateral pulmonary filtrates. She remains on DuoNeb updrafts. She remains on Symbicort. She remains on IV Solu- Medrol. She remains in normal sinus rhythm. She is on anticoagulation with Eliquis. She is also on a combination of amiodarone 200 mg p.o. twice a day and metoprolol 50 mg p.o. twice a day. She is receiving Lasix 20 mg p.o. daily. She is also on enteral feeding for nutritional support which is up to 60 cc an hour and the patient is tolerating the feeding well. The white cell count of 23 with a hemoglobin of 8.1 and a platelet count of 180. Sodium is at 140, BUN 31 with a creatinine of 0.7. She is able to sit up in a chair. Exercise capacity is quite limited. Third cycle of systemic chemotherapy has been held as the patient is currently hospitalized. Chemotherapy is to resume following recovery. On today's evaluation of 09/08/2024, the patient is being seen for a follow-up. The patient is doing well. No specific complaints. Condition essentially unchanged compared to yesterday. Unable to undergo radiation therapy due to some malfunctioning of the machine at the radiation oncology department. The patient remains on 2 L of oxygen nasal cannula. A follow-up chest x-ray was done today and it showed some pulm vascular congestion. Otherwise, the rest of the findings are essentially similar. Continues to receive enteral feeding for nutritional support. Remains on DuoNeb updrafts. Remains on IV Solu-Medrol. Remains on Symbicort. Antibiotic coverage was with vancomycin. Labs show a white cell count of 23, hemoglobin 8.4 and platelet count of 198. Sodium is at 140, BUN is 30 with a creatinine of 0.6. Objective - Vital Signs Vital signs: Vital Signs Temp 97.4 F L 09/08/24 11:17 Pulse 70 09/08/24 11:17 Resp 19 09/08/24 11:17 BP 131/76 09/08/24 11:17 Pulse Ox 99 09/08/24 11:17 FiO2 Intake & Output 09/07/24 09/08/24 09/08/24 18:59 06:59 18:59 Intake Total 480 Balance 480 Weight 80.7 kg 81.5 kg Intake: Tube Feeding 480 Other: Voiding Method Bedside Commode Bedside Commode Bedside Commode Diaper Diaper Diaper # Bowel Movements 2 - Exam No acute distress, oriented 3. Currently on 3 L high flow O2. The patient coughing has subsided and she seems to be much more comfortable and breathing is less labored. HEENT examination is grossly unremarkable. Mucous membranes are moist. No oral lesions. Neck supple. Full range of motion. No adenopathy thyromegaly or neck vein distention. Cardiovascular examination reveals regular rhythm rate. S1-S2 normal. No S3 or S4. No discernible murmur noted. Lungs reveal bilateral inspiratory and expiratory rhonchi and wheezes. Breath sounds are diminished. Cough is wet and congested. No crackles. Breath sounds are equal bilaterally. Abdomen soft bowel sounds are heard. No masses or tenderness. PEG tube is noted. Extremities are intact. No cyanosis clubbing or edema. Skin is without rash or lesion. Neurologic examination is brief but nonfocal. - Labs CBC & Chem 7: 09/08/24 06:15 09/08/24 06:15 Labs: Abnormal Lab Results - Last 24 Hours (Table) 09/07/24 09/07/24 09/08/24 Range/Units 16:08 20:09 06:12 WBC (3.8-10.6) k/uL RBC (3.80-5.40) m/uL Hgb (11.4-16.0) gm/dL Hct (34.0-46.0) % RDW (11.5-15.5) % Neutrophils # (1.3-7.7) k/uL Lymphocytes # (1.0-4.8) k/uL BUN (7-17) mg/dL Glucose (74-99) mg/dL POC Glucose (mg/dL) 183 H 182 H 208 H (70-110) mg/dL Calcium (8.4-10.2) mg/dL 09/08/24 09/08/24 09/08/24 Range/Units 06:15 06:15 12:19 WBC 23.0 H (3.8-10.6) k/uL RBC 2.79 L (3.80-5.40) m/uL Hgb 8.4 L (11.4-16.0) gm/dL Hct 26.5 L (34.0-46.0) % RDW 18.1 H (11.5-15.5) % Neutrophils # 21.8 H (1.3-7.7) k/uL Lymphocytes # 0.2 L (1.0-4.8) k/uL BUN 30 H (7-17) mg/dL Glucose 195 H (74-99) mg/dL POC Glucose (mg/dL) 160 H (70-110) mg/dL Calcium 8.3 L (8.4-10.2) mg/dL Assessment and Plan Plan: Acute hypoxic respiratory failure, currently on 3 L of oxygen by nasal cannula, oxygenation has been steadily improving. Oxygenation is unchanged over the past 24 hours. Overall respite status is also unchanged over the past 24 hours. Repeat chest x-ray was noted. Findings are essentially unchanged and stable. Atrial fibrillation with rapid ventricular response, back into normal sinus rhythm. Currently on a combination of amiodarone 400 mg p.o. twice a day and metoprolol 50 mg p.o. twice daily and the patient is anticoagulation with Eliquis. The patient's current cardiac rhythm remains sinus. Squamous cell carcinoma of the lung, stage III, locally advanced and the patient has received a total of 11 rounds of radiation therapy, and 2 cycles of systemic chemotherapy. Bilateral consolidation/airspace disease involving the right midlung and the left lower lobe, consider atelectasis versus radiation pulmonary pneumonitis versus bacterial pneumonia. The procalcitonin level at time of admission was not elevated. Chronic obstructive pulmonary disease. Chronic nausea and dysphagia with difficulties in tolerating oral intake and the patient was given a PEG tube for enteral feeding nutritional support. Hearing disorder. Psoriatic arthritis. Former smoker. History of anxiety. History of ADHD. Plan: Clinically stable Palliative radiation therapy Titrate oxygen flow to maintain saturation above 90%. Currently on 3 L/min nasal cannula. Continue Symbicort Continue DuoNeb updrafts 4 times a day Continue cefepime and vancomycin as broad-spectrum antibiotic coverage. The pat ient procalcitonin level is not elevated Start IV Solu-Medrol start the patient on prednisone burst taper starting dose of 40 mg p.o. daily Continue enteral feeding for nutritional support and the patient was given a PEG tube and currently the patient is receiving Jevity 1.5 at rate of 60 cc an hour Cardiac rhythm is sinus Continue amiodarone 400 mg p.o. twice daily and metoprolol 50 mg p.o. twice a day and anticoagulation with Eliquis Long-term prognosis poor based on above-mentioned comorbidities. Will continue to follow. Time with Patient: Greater than 30
[2024-09-08] MEDS: VANCOMYCIN 1,500 MG in SODIUM CHLORIDE 0.9% 500 ML 500 ML IVPB SCH (16:20)
[2024-09-08 17:14] LABS: Glucose,Whole Blood 202 mg/dL (70-110)
--- NOTE | 2024-09-08 18:17 | P.PN ---
Subjective Progress Note Date: 09/08/24 Hospital Course: 63-year-old female with past medical history of mediastinal squamous cell carc inoma stage III a following with Dr. Wooten in [facility] and Dr. Robledo in [place], chronic hypoxic respiratory failure secondary to COPD on 2 L of nasal cannula, who presented to the ED after she was encouraged to come here by her oncologist.She was supposed to receive her third round of chemo today however she has been very weak and was advised to come here and potentially get a PEG tube placed. She has been having increased difficulty swallowing and now is barely able to swallow liquids. She has also increased her oxygen requirements over the last week. She used to be on 2 L but for the last week has been requiring 3 L. She has been "coughing up bile" with an episode of hemoptysis about a week or two ago post radiation. The hemoptysis has resolved. Patient denying recent fever, abdominal pain, chest pain. She reports chills, severe fatigue, cough productive of a green-omar sputum (reported as "bile"), chest pressure, severe nausea, one episode of vomiting yesterday, dyspnea. Patient reports that IV Compazine is only thing that helps with her nausea. After the patient's left the room, the patient expressed a desire to be on hospice and to be a DNR/DNI stating that she wanted to fight at first but no longer has the energy to. patient was tachycardia, EKG showed A-fib with RVR, she was given Cardizem, started on IV heparin, cardiology consulted. Recommended to continue Cardizem, TTE ordered.EF 55%, trace pericardial effusion, mild mitral regurg, no obvious intracardiac mass or external compression of cardiac structures Hospice consult was placed, patient found that she would feel comfortably proceeding with hospice care although her family at bedside was highly encouraging to continue the treatment. Heme-onc consulted, general surgery consulted for PEG, cardiology consulted for new onset A-fib. Patient was seen by surgical team in the morning, declined any procedures done, later requested to be reevaluated per family request. PEG tube was placed on 09/02, no RD available over the weekend, patient was started on Jevity 1.5 at 10 cc/h 09/01 in the evening patient developed worsening SOB, chest x-ray was done and showed left lower lobe pneumonia or atelectasis, patient was started on cefepime and vancomycin, was given IV Lasix with symptoms improvement. Pulmonology consulted, patient continued on antibiotics, added Solu-Medrol, breathing treatment continued. 09/03: A-fib RVR, heart rate in 130s, BP soft with MAP of 68, now on high flow nasal cannula 9 L. Chest x-ray repeated, improved aeration of the left lung base with focal plateau right midlung contact this is in the right upper medial airspace opacities. 09/04: A-fib rate controlled, feels better, 8 Lnasal cannula. Cardiology following: Metoprolol tartrate 50 twice daily, continue Eliquis 5 twice daily, add oral amiodarone 400 mg twice a day, Lasix 20 daily oral. Viral panel negative. Started trickle feedings 09/05:Shortness of breath improved, now on 6 L nasal cannula converted to sinus rhythm, heart rate controlled . 09/06: Heart rate controlled, sinus, on 3 L, feeling better, pending clearance from cardiology and pulmonology for radiation therapy 09/07: S/p radiation therapy 09/06, heart rate is controlled, feeling more short of breath, tries to be more active, now sitting up in the chair, tolerating tube feeds, afebrile. Leukocytosis is worsening, could be steroid-induced versus after radiation reactive; on day 5 of broad-spectrum antibiotics, can finish 7 d ays of antibiotics given her immunocompromise state ,Subjective: Seen and examined this morning, resting in bed, still feeling quite weak. Pending radiation tx today. Vitals Signs Reviewed. General: , ill-appearing Derm: [warm], [dry] Head: [atraumatic], [normocephalic], [symmetric] Eyes: [EOMI], [no lid lag], [anicteric sclera] Mouth: [no lip lesion], [mucus membranes moist] Cardiovascular: [S1S2 irregular, tachycardic Lungs: [CTA bilateral], diminished left lower basilar breath sounds] , [no accessory muscle use] Abdominal: [soft], [ nontender to palpation], [no guarding], [no appreciable organomegaly], bruised around PEG tube insertion site Ext: [no gross muscle atrophy], [no edema], [no contractures] Neuro: [ CN II-XI grossly intact], [no focal neuro deficits] Psych: [Alert], [oriented], [appropriate affect] Data Reviewed Today: Pertinent Labs: Leukocytosis going up to 23.3, hemoglobin 8.1, platelet count normal, sodium 140, potassium 3.2, creatinine normal, glucose is 189 Assessment and Plan: New onset A-fib with RVR -Cardiology consulted: Metoprolol tartrate 50 twice daily, continue Eliquis 5 twice daily, oral amiodarone 400 mg twice a day, decrease to 200 mg twice daily after 1 week. Lasix 20 daily oral -TTE ordered, EF 55%, trace pericardial effusion, mild mitral regurg, no obvious intracardiac mass or external compression of cardiac structures Acute on chronic hypoxic respiratory failure secondary to COPD exacerbation, left lower lobe community-acquired pneumonia Steroid-induced hyperglycemia Steroid-induced leukocytosis -Continue breathing treatment, added Symbicort -Pulmonology following -Continue vancomycin and cefepime 2 g every 8 hours SOT 09/02, plan for 7 days given ongoing leukocytosis despite tapering steroids -Decreased Solu-Medrol 60 mg to every 12 hours -on 3 L NC today -SSI and Accu-Cheks, added Levemir 5 twice daily, increase to 7 twice daily Stage III NSCLC Intractable nausea secondary to above, resolved Dysphagia secondary to above, possible component of mass effect status post PEG tube 09/02, advancing rate Hypoproteinemia, hypoalbuminemia secondary to above Chronic normocytic anemia -Continue IV Compazine -Radiation oncology and oncology following, status post RT therapy 09/06 -Surgery on board -Nutrition consulted for tube feeding, tolerating well, at goal -Phosphorus level ordered-normal -Discussed with RN, social work Hypokalemia: Replaced, follow-up repeat BMP in the morning DVT ppx: Eliquis Code status: full code Anticipated discharge place: Pending clinical course Anticipated discharge time: Pending clinical course Objective - Vital Signs Vital signs: Vital Signs Temp 97.6 F 09/08/24 15:29 Pulse 90 09/08/24 16:05 Resp 16 09/08/24 15:29 BP 119/74 09/08/24 15:29 Pulse Ox 95 09/08/24 15:29 FiO2 Intake & Output 09/07/24 09/08/24 09/08/24 18:59 06:59 18:59 Intake Total 495 Output Total 600 Balance -105 Weight 80.7 kg 81.5 kg Intake: IV 15 Invasive Line 4 15 Tube Feeding 480 Output: Urine 600 Other: Voiding Method Bedside Commode Bedside Commode Bedside Commode Diaper Diaper Diaper # Bowel Movements 2 - Labs CBC & Chem 7: 09/08/24 06:15 09/08/24 06:15 Labs: Abnormal Lab Results - Last 24 Hours (Table) 09/07/24 09/08/24 09/08/24 Range/Units 20:09 06:12 06:15 WBC 23.0 H (3.8-10.6) k/uL RBC 2.79 L (3.80-5.40) m/uL Hgb 8.4 L (11.4-16.0) gm/dL Hct 26.5 L (34.0-46.0) % RDW 18.1 H (11.5-15.5) % Neutrophils # 21.8 H (1.3-7.7) k/uL Lymphocytes # 0.2 L (1.0-4.8) k/uL BUN (7-17) mg/dL Glucose (74-99) mg/dL POC Glucose (mg/dL) 182 H 208 H (70-110) mg/dL Calcium (8.4-10.2) mg/dL 09/08/24 09/08/24 09/08/24 Range/Units 06:15 12:19 17:13 WBC (3.8-10.6) k/uL RBC (3.80-5.40) m/uL Hgb (11.4-16.0) gm/dL Hct (34.0-46.0) % RDW (11.5-15.5) % Neutrophils # (1.3-7.7) k/uL Lymphocytes # (1.0-4.8) k/uL BUN 30 H (7-17) mg/dL Glucose 195 H (74-99) mg/dL POC Glucose (mg/dL) 160 H 202 H (70-110) mg/dL Calcium 8.3 L (8.4-10.2) mg/dL
[2024-09-08 20:31] LABS: Glucose,Whole Blood 230 mg/dL (70-110)
[2024-09-09 02:33] LABS: Glucose,Whole Blood 158 mg/dL (70-110)
[2024-09-09 07:12] LABS: Glucose,Whole Blood 107 mg/dL (70-110)
[2024-09-09 11:35] LABS: African American GFR (CKD) >90 (>60 ml/min/1.73 sqM); Anion Gap 5 mmol/L; Blood Urea Nitrogen 28 mg/dL (7-17); Calcium 8.3 mg/dL (8.4-10.2); Carbon Dioxide 33 mmol/L (22-30); Chloride 101 mmol/L (98-107); Glucose 155 mg/dL (74-99); Non-African American GFR(CKD) >90 (>60 ml/min/1.73 sqM); Potassium 3.7 mmol/L (3.5-5.1); Sodium 139 mmol/L (137-145)
[2024-09-09 12:00] LABS: Anisocytosis Slight; Basophils # (A) 0.1 k/uL (0-0.2); Basophils % (A) 0 %; Eosinophils # (A) 0.1 k/uL (0-0.7); Eosinophils % (A) 0 %; HCT 26.6 % (34.0-46.0); HGB 8.3 gm/dL (11.4-16.0); Hypochromasia Moderate; Lymphocytes # (A) 0.3 k/uL (1.0-4.8); Lymphocytes % (A) 2 %; MCH 29.6 pg (25.0-35.0); MCHC 31.3 g/dL (31.0-37.0); MCV 94.4 fL (80.0-100.0); Macrocytosis Slight; Mean Platelet Volume 9.7; Monocytes # (A) 0.4 k/uL (0-1.0); Monocytes % (A) 2 %; Neutrophils # (A) 20.8 k/uL (1.3-7.7); Neutrophils % (A) 95 %; Platelet Count 217 k/uL (150-450); RBC 2.82 m/uL (3.80-5.40); RDW 19.1 % (11.5-15.5); WBC 21.8 k/uL (3.8-10.6)
[2024-09-09 12:18] LABS: Glucose,Whole Blood 198 mg/dL (70-110)
--- NOTE | 2024-09-09 15:21 | P.PN ---
Subjective Progress Note Date: 09/09/24 This is a 63-year-old female patient with a recent diagnosis of squamous cell lung cancer. She has undergone 11 radiation treatments here and 2 rounds of chemotherapy at [facility]. She presented here to the emergency room on August 31, 2024 with complaints of increasing shortness of breath, cough and congestion. She was also having difficulty in swallowing. She also was found to be in atrial fibrillation with a rapid ventricular response, currently in sinus. chest x-ray revealed development of a right midlung linear atelectasis. Known mediastinal mass. Right chest wall Mediport in place. Evidence of COPD. Count 10.1. Hemoglobin 8.3. Platelets 179. Sodium 137. Potassium 4.1. Bi carb 18. BUN 11. Creatinine 0.81. Glucose 99. She is seen today in consultation on the selective care unit. She is currently resting in bed. Awake and alert in mild respiratory distress. She is requiring 12 L high flow nasal cannula to maintain O2 saturations in the 90s. She is normally on home oxygen at 3 L. Arterial blood gases done yesterday on 60% FiO2 revealed a PaO2 of 77, pCO2 40, pH 7.38. She has a large mediastinal mass from her lung cancer compressing her esophagus causing dysphagia. She is undergoing PEG tube insertion today. Progress note dated September 03, 2024. 63-year-old female seen yesterday in consultation. The patient has a history of recently diagnosed squamous cell carcinoma of the lung. The patient has had 11 radiation treatments, 2 cycles of chemotherapy. She gets her radiation here, and her chemotherapy, at [facility]. The patient comes into the hospital, with complaints of shortness of breath, chest congestion, cough, difficulty swallowing. Yesterday, the patient had an EGD and PEG tube placed by surgery. The patient is currently not on any fluids. She is getting high flow oxygen, at 10 L. She continues on cefepime and vancomycin. Current laboratory data includes a white count 10.3, hemoglobin 7.5, hematocrit 23.9, platelet count 246,000. Sodium 138, potassium 4.3, chlorides 105, CO2 20, BUN 16, creatinine 0.74. Glucose is 143. Calcium 8. Albumin 2.8. Procalcitonin level 0.32. On 09/04/2024, the patient is being seen for a follow-up. Remains short of breath and is having frequent cough. Oxygenation is stable on 7 L of oxygen by nasal cannula with a pulse ox of 96%. Reviewed the series of chest x-rays that was done during the current hospitalization. The patient has areas of consolidation and airspace disease in the right midlung and the left lower lobe in addition to mediastinal fullness consistent with her underlying squamous cell carcinoma of the lung. The patient remains on DuoNeb nebulized treatments [id number]. The patient remains on Symbicort. The patient remains on IV Solu-Medrol 60 mg every 6 hours. The patient is also on a combination of cefepime and vancomycin. She is also noted to be in atrial fibrillation with rapid ventricular response at time of admission. The patient has an ejection fraction 45% with hyperdynamic LV without any significant wall motion abnormalities. There was mild mitral regurgitation. Her current cardiac rhythm seems to be sinus. The patient remains on anticoagulation with Eliquis 5 mg p.o. twice a day. Amiodarone was also added at a dose of 4 mg p.o. twice daily in combination with metoprolol 50 mg twice a day. No hemoptysis. No pleurisy. Chronic shortness of breath secondary to her advanced lung cancer. Meanwhile, the patient was started on enteral feeding for nutritional support and the patient is currently on Jevity 1.5 that is running at 10 cc an hour. On 09/05/2024, the patient is feeling essentially the same as yesterday. There has been interval improvement in the oxygenation the patient is currently on 5 L of O2 nasal cannula. No chest pain. No significant shortness of breath. No hemoptysis. No pleurisy. Remains on DuoNeb nebulized treatments [id number]. Remains on IV Solu-Medrol. Remains on broad-spectrum IV biotics and the patient remains on a combination of cefepime and vancomycin. Meanwhile, she is still having episodes of atrial fibrillation and further adjustments in the cardiac medications were done and the patient was placed on amiodarone 400 mg p.o. twice a day and metoprolol 50 mg p.o. twice a day patient is also on anticoagulation and the patient is currently on Eliquis. The white cell count of 18.1 with a hemoglobin 8.4 and a platelet count of 175. BUN is 24 with a creatinine of 0.7. Sodium levels at 137. LFTs are essentially within normal limits. The patient continues to receive enteral feeding for nutritional support. She is at rate of 40 cc an hour. On today's evaluation of 09/06/2024, the patient is on 3 L of oxygen by nasal cannula. Repeat chest x-ray was done and the patient continues to have mediastinal fullness, there is a left lower lobe infiltration and small effusion and improving right upper lobe infiltrate. The patient is doing well. The patient remains on IV cefepime and vancomycin. The patient remains on IV Solu- Medrol 60 mg every 12 hours. Cardiac rhythm is sinus. The patient is currently on amiodarone 400 mg p.o. twice a day, metoprolol 50 mg p.o. twice daily anticoagulation with Eliquis. Remains on Lasix 20 mg p.o. daily. Continues to receive enteral feeding for nutritional support. The white cell count of 20 with a hemoglobin 8.3 and a platelet count of 177. The rest of the electrolytes from yesterday were within normal limits. Renal function is stable. The viral 4 Plex has been negative. On 09/07/2024, the patient is comfortable on 2 L of oxygen by nasal cannula. She underwent a session of palliative radiation therapy to her chest yesterday. This was done locally at our radiation oncology department. She has no hemoptysis. No interval worsening shortness of breath. Chest x-ray from 09/06/2024 showed some improvement of the bilateral pulmonary filtrates. She remains on DuoNeb updrafts. She remains on Symbicort. She remains on IV Solu- Medrol. She remains in normal sinus rhythm. She is on anticoagulation with Eliquis. She is also on a combination of amiodarone 200 mg p.o. twice a day and metoprolol 50 mg p.o. twice a day. She is receiving Lasix 20 mg p.o. daily. She is also on enteral feeding for nutritional support which is up to 60 cc an hour and the patient is tolerating the feeding well. The white cell count of 23 with a hemoglobin of 8.1 and a platelet count of 180. Sodium is at 140, BUN 31 with a creatinine of 0.7. She is able to sit up in a chair. Exercise capacity is quite limited. Third cycle of systemic chemotherapy has been held as the patient is currently hospitalized. Chemotherapy is to resume following recovery. On today's evaluation of 09/08/2024, the patient is being seen for a follow-up. The patient is doing well. No specific complaints. Condition essentially unchanged compared to yesterday. Unable to undergo radiation therapy due to some malfunctioning of the machine at the radiation oncology department. The patient remains on 2 L of oxygen nasal cannula. A follow-up chest x-ray was done today and it showed some pulm vascular congestion. Otherwise, the rest of the findings are essentially similar. Continues to receive enteral feeding for nutritional support. Remains on DuoNeb updrafts. Remains on IV Solu-Medrol. Remains on Symbicort. Antibiotic coverage was with vancomycin. Labs show a white cell count of 23, hemoglobin 8.4 and platelet count of 198. Sodium is at 140, BUN is 30 with a creatinine of 0.6. On 09/09/2024, patient is overall condition is unchanged. She remains between 3 and 4 L of nasal cannula. She was taken off the IV Solu-Medrol and she was started on a prednisone burst taper as of yesterday. She remains on Symbicort. She remains on DuoNeb. Continues to have episodes of cough although this is less severe. No fever. No chills. Remains in normal sinus rhythm. Remains on amiodarone. Remains on metoprolol. Noted the patient did not receive radiation therapy to her chest yesterday. The white cell count is 21, hemoglobin 8.3 and platelet count is 217. BUN is 28 with a creatinine of 0.58 and a sodium levels at 139 and a potassium level is at 3.7. Blood sugars at 198. The patient continues to receive enteral feeding for nutritional support through her PEG tube. Feels extremely fatigued. Objective - Vital Signs Vital signs: Vital Signs Temp 97.8 F 09/09/24 07:07 Pulse 84 09/09/24 12:01 Resp 18 09/09/24 07:07 BP 121/67 09/09/24 07:07 Pulse Ox 98 09/09/24 11:47 FiO2 Intake & Output 09/08/24 09/09/24 09/09/24 18:59 06:59 18:59 Intake Total 495 1020 Output Total 600 400 700 Balance -105 620 -700 Intake: IV 15 Invasive Line 4 15 Oral 240 Tube Feeding 480 660 Other 120 Output: Urine 600 400 700 Other: Voiding Method Bedside Commode Bedside Commode Diaper Diaper # Voids 1 - Exam No acute distress, oriented 3. Currently on 3 L high flow O2. The patient coughing has subsided and she seems to be much more comfortable and breathing is less labored. HEENT examination is grossly unremarkable. Mucous membranes are moist. No oral lesions. Neck supple. Full range of motion. No adenopathy thyromegaly or neck vein distention. Cardiovascular examination reveals regular rhythm rate. S1-S2 normal. No S3 or S4. No discernible murmur noted. Lungs reveal bilateral inspiratory and expiratory rhonchi and wheezes. Breath sounds are diminished. Cough is wet and congested. No crackles. Breath sounds are equal bilaterally. Abdomen soft bowel sounds are heard. No masses or tenderness. PEG tube is noted. Extremities are intact. No cyanosis clubbing or edema. Skin is without rash or lesion. Neurologic examination is brief but nonfocal. - Labs CBC & Chem 7: 09/09/24 10:27 09/09/24 10: Labs: Abnormal Lab Results - Last 24 Hours (Table) 09/08/24 09/08/24 09/09/24 Range/Units 17:13 20:28 02:31 WBC (3.8-10.6) k/uL RBC (3.80-5.40) m/uL Hgb (11.4-16.0) gm/dL Hct (34.0-46.0) % RDW (11.5-15.5) % Neutrophils # (1.3-7.7) k/uL Lymphocytes # (1.0-4.8) k/uL Carbon Dioxide (22-30) mmol/L BUN (7-17) mg/dL Glucose (74-99) mg/dL POC Glucose (mg/dL) 202 H 230 H 158 H (70-110) mg/dL Calcium (8.4-10.2) mg/dL 09/09/24 09/09/24 09/09/24 Range/Units 10:27 10:27 12:17 WBC 21.8 H (3.8-10.6) k/uL RBC 2.82 L (3.80-5.40) m/uL Hgb 8.3 L (11.4-16.0) gm/dL Hct 26.6 L (34.0-46.0) % RDW 19.1 H (11.5-15.5) % Neutrophils # 20.8 H (1.3-7.7) k/uL Lymphocytes # 0.3 L (1.0-4.8) k/uL Carbon Dioxide 33 H (22-30) mmol/L BUN 28 H (7-17) mg/dL Glucose 155 H (74-99) mg/dL POC Glucose (mg/dL) 198 H (70-110) mg/dL Calcium 8.3 L (8.4-10.2) mg/dL Assessment and Plan Plan: Acute hypoxic respiratory failure, currently on 3 L of oxygen by nasal cannula, oxygenation has been steadily improving. Oxygenation is unchanged over the past 24 hours. Overall respite status is also unchanged over the past 24 hours. Repeat chest x-ray was noted. Findings are essentially unchanged and stable. Atrial fibrillation with rapid ventricular response, back into normal sinus rhythm. Currently on a combination of amiodarone 400 mg p.o. twice a day and metoprolol 50 mg p.o. twice daily and the patient is anticoagulation with Eliquis. The patient's current cardiac rhythm remains sinus. Squamous cell carcinoma of the lung, stage III, locally advanced and the patient has received a total of 11 rounds of radiation therapy, and 2 cycles of systemic chemotherapy. Bilateral consolidation/airspace disease involving the right midlung and the left lower lobe, consider atelectasis versus radiation pulmonary pneumonitis versus bacterial pneumonia. The procalcitonin level at time of admission was not elevated. Chronic obstructive pulmonary disease. Chronic nausea and dysphagia with difficulties in tolerating oral intake and the patient was given a PEG tube for enteral feeding nutritional support. Hearing disorder. Psoriatic arthritis. Former smoker. History of anxiety. History of ADHD. Plan: Clinically stable, no change in her condition over the past 24 hours Palliative radiation to be continued by rad oncology Awaiting further recommendations from medical oncology regarding systemic chemotherapy Titrate oxygen flow to maintain saturation above 90%. Currently on 3 L/min nasal cannula. Continue Symbicort Continue DuoNeb updrafts 4 times a day he patient procalcitonin level is not elevated [id number] mg p.o. daily Continue enteral feeding for nutritional support and the patient was given a PEG tube and currently the patient is receiving Jevity 1.5 at rate of 60 cc an hour Cardiac rhythm is sinus Continue amiodarone 400 mg p.o. twice daily and metoprolol 50 mg p.o. twice a day and anticoagulation with Eliquis Long-term prognosis poor based on above-mentioned comorbidities. Will continue to follow.
--- NOTE | 2024-09-09 15:34 | P.PN ---
Subjective Progress Note Date: 09/09/24 Hospital Course: 63-year-old female with past medical history of mediastinal squamous cell carc inoma stage III a following with Dr. Wooten in [facility] and Dr. Robledo in [place], chronic hypoxic respiratory failure secondary to COPD on 2 L of nasal cannula, who presented to the ED after she was encouraged to come here by her oncologist.She was supposed to receive her third round of chemo today however she has been very weak and was advised to come here and potentially get a PEG tube placed. She has been having increased difficulty swallowing and now is barely able to swallow liquids. She has also increased her oxygen requirements over the last week. She used to be on 2 L but for the last week has been requiring 3 L. She has been "coughing up bile" with an episode of hemoptysis about a week or two ago post radiation. The hemoptysis has resolved. Patient denying recent fever, abdominal pain, chest pain. She reports chills, severe fatigue, cough productive of a green-omar sputum (reported as "bile"), chest pressure, severe nausea, one episode of vomiting yesterday, dyspnea. Patient reports that IV Compazine is only thing that helps with her nausea. After the patient's left the room, the patient expressed a desire to be on hospice and to be a DNR/DNI stating that she wanted to fight at first but no longer has the energy to. patient was tachycardia, EKG showed A-fib with RVR, she was given Cardizem, started on IV heparin, cardiology consulted. Recommended to continue Cardizem, TTE ordered.EF 55%, trace pericardial effusion, mild mitral regurg, no obvious intracardiac mass or external compression of cardiac structures Hospice consult was placed, patient found that she would feel comfortably proceeding with hospice care although her family at bedside was highly encouraging to continue the treatment. Heme-onc consulted, general surgery consulted for PEG, cardiology consulted for new onset A-fib. Patient was seen by surgical team in the morning, declined any procedures done, later requested to be reevaluated per family request. PEG tube was placed on 09/02, no RD available over the weekend, patient was started on Jevity 1.5 at 10 cc/h 09/01 in the evening patient developed worsening SOB, chest x-ray was done and showed left lower lobe pneumonia or atelectasis, patient was started on cefepime and vancomycin, was given IV Lasix with symptoms improvement. Pulmonology consulted, patient continued on antibiotics, added Solu-Medrol, breathing treatment continued. 09/03: A-fib RVR, heart rate in 130s, BP soft with MAP of 68, now on high flow nasal cannula 9 L. Chest x-ray repeated, improved aeration of the left lung base with focal plateau right midlung contact this is in the right upper medial airspace opacities. 09/04: A-fib rate controlled, feels better, 8 Lnasal cannula. Cardiology following: Metoprolol tartrate 50 twice daily, continue Eliquis 5 twice daily, add oral amiodarone 400 mg twice a day, Lasix 20 daily oral. Viral panel negative. Started trickle feedings 09/05:Shortness of breath improved, now on 6 L nasal cannula converted to sinus rhythm, heart rate controlled . 09/06: Heart rate controlled, sinus, on 3 L, feeling better, pending clearance from cardiology and pulmonology for radiation therapy 09/07: S/p radiation therapy 09/06, heart rate is controlled, feeling more short of breath, tries to be more active, now sitting up in the chair, tolerating tube feeds, afebrile. Leukocytosis is worsening, could be steroid-induced versus after radiation reactive; on day 5 of broad-spectrum antibiotics, can finish 7 d ays of antibiotics given her immunocompromise state ,Subjective: Seen and examined this morning, resting in bed, still feeling quite weak. Radiation tx held til wednesday due to machine failure per at bedside. Vitals Signs Reviewed. General: , ill-appearing Derm: [warm], [dry] Head: [atraumatic], [normocephalic], [symmetric] Eyes: [EOMI], [no lid lag], [anicteric sclera] Mouth: [no lip lesion], [mucus membranes moist] Cardiovascular: [S1S2 irregular, tachycardic Lungs: [CTA bilateral], diminished left lower basilar breath sounds] , [no accessory muscle use] Abdominal: [soft], [ nontender to palpation], [no guarding], [no appreciable organomegaly], bruised around PEG tube insertion site Ext: [no gross muscle atrophy], [no edema], [no contractures] Neuro: [ CN II-XI grossly intact], [no focal neuro deficits] Psych: [Alert], [oriented], [appropriate affect] Data Reviewed Today: Pertinent Labs: Leukocytosis going up to 23.3, hemoglobin 8.1, platelet count normal, sodium 140, potassium 3.2, creatinine normal, glucose is 189 Assessment and Plan: New onset A-fib with RVR -Cardiology consulted: Metoprolol tartrate 50 twice daily, continue Eliquis 5 twice daily, oral amiodarone 400 mg twice a day, decrease to 200 mg twice daily after 1 week. Lasix 20 daily oral -TTE ordered, EF 55%, trace pericardial effusion, mild mitral regurg, no obvious intracardiac mass or external compression of cardiac structures Acute on chronic hypoxic respiratory failure secondary to COPD exacerbation, left lower lobe community-acquired pneumonia Steroid-induced hyperglycemia Steroid-induced leukocytosis -Continue breathing treatment, added Symbicort -Pulmonology following -Continue vancomycin and cefepime 2 g every 8 hours SOT 09/02, plan for 7 days given ongoing leukocytosis despite tapering steroids -Decreased Solu-Medrol 60 mg to every 12 hours -on 3 L NC today -SSI and Accu-Cheks, added Levemir 5 twice daily, increase to 7 twice daily Stage III NSCLC Intractable nausea secondary to above, resolved Dysphagia secondary to above, possible component of mass effect status post PEG tube 09/02, advancing rate Hypoproteinemia, hypoalbuminemia secondary to above Chronic normocytic anemia -Continue IV Compazine -Radiation oncology and oncology following, status post RT therapy 09/06 -Surgery on board -Nutrition consulted for tube feeding, tolerating well, at goal -Phosphorus level ordered-normal -Discussed with RN, social work Hypokalemia: Replaced, follow-up repeat BMP in the morning DVT ppx: Eliquis Code status: full code, discussed with today, code status still full but under further consideration. Anticipated discharge place: Pending clinical course Anticipated discharge time: Pending clinical course Objective - Vital Signs Vital signs: Vital Signs Temp 98 F 09/09/24 12:41 Pulse 68 09/09/24 15:23 Resp 20 09/09/24 12:41 BP 107/56 09/09/24 12:41 Pulse Ox 94 L 09/09/24 12:41 FiO2 Intake & Output 09/08/24 09/09/2425 18:59 06:59 18:59 Intake Total 495 1020 Output Total 600 400 700 Balance -105 620 -700 Intake: IV 15 Invasive Line 4 15 Oral 240 Tube Feeding 480 660 Other 120 Output: Urine 600 400 700 Other: Voiding Method Bedside Commode Bedside Commode Bedside Commode Diaper Diaper Diaper # Voids 1 - Labs CBC & Chem 7: 09/09/24 10:27 09/09/24 10:27 Labs: Abnormal Lab Results - Last 24 Hours (Table) 09/08/24 09/08/24 09/09/24 Range/Units 17:13 20:28 02:31 WBC (3.8-10.6) k/uL RBC (3.80-5.40) m/uL Hgb (11.4-16.0) gm/dL Hct (34.0-46.0) % RDW (11.5-15.5) % Neutrophils # (1.3-7.7) k/uL Lymphocytes # (1.0-4.8) k/uL Carbon Dioxide (22-30) mmol/L BUN (7-17) mg/dL Glucose (74-99) mg/dL POC Glucose (mg/dL) 202 H 230 H 158 H (70-110) mg/dL Calcium (8.4-10.2) mg/dL 09/09/24 09/09/24 09/09/24 Range/Units 10:27 10:27 12:17 WBC 21.8 H (3.8-10.6) k/uL RBC 2.82 L (3.80-5.40) m/uL Hgb 8.3 L (11.4-16.0) gm/dL Hct 26.6 L (34.0-46.0) % RDW 19.1 H (11.5-15.5) % Neutrophils # 20.8 H (1.3-7.7) k/uL Lymphocytes # 0.3 L (1.0-4.8) k/uL Carbon Dioxide 33 H (22-30) mmol/L BUN 28 H (7-17) mg/dL Glucose 155 H (74-99) mg/dL POC Glucose (mg/dL) 198 H (70-110) mg/dL Calcium 8.3 L (8.4-10.2) mg/dL
[2024-09-09] MEDS ORDERED: HYDROcodone/APAP 5-325MG 1 EACH TAB PO PRN (15:35)
[2024-09-09 16:51] LABS: Glucose,Whole Blood 216 mg/dL (70-110)
[2024-09-09] MEDS: MORPHINE SULFATE 4 MG/ML SYRINGE IVP PRN (18:59)
[2024-09-09 20:30] LABS: Glucose,Whole Blood 176 mg/dL (70-110)
[2024-09-10 06:24] LABS: African American GFR (CKD) >90 (>60 ml/min/1.73 sqM); Anion Gap 2 mmol/L; Blood Urea Nitrogen 28 mg/dL (7-17); Calcium 8.2 mg/dL (8.4-10.2); Carbon Dioxide 39 mmol/L (22-30); Chloride 102 mmol/L (98-107); Glucose 91 mg/dL (74-99); Magnesium 2.1 mg/dL (1.6-2.3); Non-African American GFR(CKD) >90 (>60 ml/min/1.73 sqM); Potassium 4.9 mmol/L (3.5-5.1); Sodium 143 mmol/L (137-145)
[2024-09-10 06:34] LABS: Anisocytosis Slight; HCT 27.7 % (34.0-46.0); HGB 8.9 gm/dL (11.4-16.0); Hypochromasia Moderate; MCH 30.2 pg (25.0-35.0); MCHC 31.9 g/dL (31.0-37.0); MCV 94.6 fL (80.0-100.0); Macrocytosis Slight; Mean Platelet Volume 9.4; Platelet Count 219 k/uL (150-450); RBC 2.93 m/uL (3.80-5.40); RDW 18.9 % (11.5-15.5); WBC 25.4 k/uL (3.8-10.6)
[2024-09-10 07:11] LABS: Glucose,Whole Blood 114 mg/dL (70-110)
[2024-09-10 07:14] LABS: Anisocytosis (M) Present; Band Neutrophils % 3 %; Lymphocytes # (M) 0.76 k/uL (1.0-4.8); Monocytes # (M) 1.02 k/uL (0-1.0); Neutrophils % (M) 91 %; Nucleated Red Blood Cells 0 /100 WBC (0-0); Polychromasia Present; Total Cells Counted 200
[2024-09-10 12:14] LABS: Glucose,Whole Blood 177 mg/dL (70-110)
--- NOTE | 2024-09-10 14:59 | P.PN ---
Subjective Progress Note Date: 09/10/24 This is a 63-year-old female patient with a recent diagnosis of squamous cell lung cancer. She has undergone 11 radiation treatments here and 2 rounds of chemotherapy at [facility]. She presented here to the emergency room on August 31, 2024 with complaints of increasing shortness of breath, cough and congestion. She was also having difficulty in swallowing. She also was found to be in atrial fibrillation with a rapid ventricular response, currently in sinus. chest x-ray revealed development of a right midlung linear atelectasis. Known mediastinal mass. Right chest wall Mediport in place. Evidence of COPD. Count 10.1. Hemoglobin 8.3. Platelets 179. Sodium 137. Potassium 4.1. Bi carb 18. BUN 11. Creatinine 0.81. Glucose 99. She is seen today in consultation on the selective care unit. She is currently resting in bed. Awake and alert in mild respiratory distress. She is requiring 12 L high flow nasal cannula to maintain O2 saturations in the 90s. She is normally on home oxygen at 3 L. Arterial blood gases done yesterday on 60% FiO2 revealed a PaO2 of 77, pCO2 40, pH 7.38. She has a large mediastinal mass from her lung cancer compressing her esophagus causing dysphagia. She is undergoing PEG tube insertion today. Progress note dated September 03, 2024. 63-year-old female seen yesterday in consultation. The patient has a history of recently diagnosed squamous cell carcinoma of the lung. The patient has had 11 radiation treatments, 2 cycles of chemotherapy. She gets her radiation here, and her chemotherapy, at [facility]. The patient comes into the hospital, with complaints of shortness of breath, chest congestion, cough, difficulty swallowing. Yesterday, the patient had an EGD and PEG tube placed by surgery. The patient is currently not on any fluids. She is getting high flow oxygen, at 10 L. She continues on cefepime and vancomycin. Current laboratory data includes a white count 10.3, hemoglobin 7.5, hematocrit 23.9, platelet count 246,000. Sodium 138, potassium 4.3, chlorides 105, CO2 20, BUN 16, creatinine 0.74. Glucose is 143. Calcium 8. Albumin 2.8. Procalcitonin level 0.32. On 09/04/2024, the patient is being seen for a follow-up. Remains short of breath and is having frequent cough. Oxygenation is stable on 7 L of oxygen by nasal cannula with a pulse ox of 96%. Reviewed the series of chest x-rays that was done during the current hospitalization. The patient has areas of consolidation and airspace disease in the right midlung and the left lower lobe in addition to mediastinal fullness consistent with her underlying squamous cell carcinoma of the lung. The patient remains on DuoNeb nebulized treatments [id number]. The patient remains on Symbicort. The patient remains on IV Solu-Medrol 60 mg every 6 hours. The patient is also on a combination of cefepime and vancomycin. She is also noted to be in atrial fibrillation with rapid ventricular response at time of admission. The patient has an ejection fraction 45% with hyperdynamic LV without any significant wall motion abnormalities. There was mild mitral regurgitation. Her current cardiac rhythm seems to be sinus. The patient remains on anticoagulation with Eliquis 5 mg p.o. twice a day. Amiodarone was also added at a dose of 4 mg p.o. twice daily in combination with metoprolol 50 mg twice a day. No hemoptysis. No pleurisy. Chronic shortness of breath secondary to her advanced lung cancer. Meanwhile, the patient was started on enteral feeding for nutritional support and the patient is currently on Jevity 1.5 that is running at 10 cc an hour. On 09/05/2024, the patient is feeling essentially the same as yesterday. There has been interval improvement in the oxygenation the patient is currently on 5 L of O2 nasal cannula. No chest pain. No significant shortness of breath. No hemoptysis. No pleurisy. Remains on DuoNeb nebulized treatments [id number]. Remains on IV Solu-Medrol. Remains on broad-spectrum IV biotics and the patient remains on a combination of cefepime and vancomycin. Meanwhile, she is still having episodes of atrial fibrillation and further adjustments in the cardiac medications were done and the patient was placed on amiodarone 400 mg p.o. twice a day and metoprolol 50 mg p.o. twice a day patient is also on anticoagulation and the patient is currently on Eliquis. The white cell count of 18.1 with a hemoglobin 8.4 and a platelet count of 175. BUN is 24 with a creatinine of 0.7. Sodium levels at 137. LFTs are essentially within normal limits. The patient continues to receive enteral feeding for nutritional support. She is at rate of 40 cc an hour. On today's evaluation of 09/06/2024, the patient is on 3 L of oxygen by nasal cannula. Repeat chest x-ray was done and the patient continues to have mediastinal fullness, there is a left lower lobe infiltration and small effusion and improving right upper lobe infiltrate. The patient is doing well. The patient remains on IV cefepime and vancomycin. The patient remains on IV Solu- Medrol 60 mg every 12 hours. Cardiac rhythm is sinus. The patient is currently on amiodarone 400 mg p.o. twice a day, metoprolol 50 mg p.o. twice daily anticoagulation with Eliquis. Remains on Lasix 20 mg p.o. daily. Continues to receive enteral feeding for nutritional support. The white cell count of 20 with a hemoglobin 8.3 and a platelet count of 177. The rest of the electrolytes from yesterday were within normal limits. Renal function is stable. The viral 4 Plex has been negative. On 09/07/2024, the patient is comfortable on 2 L of oxygen by nasal cannula. She underwent a session of palliative radiation therapy to her chest yesterday. This was done locally at our radiation oncology department. She has no hemoptysis. No interval worsening shortness of breath. Chest x-ray from 09/06/2024 showed some improvement of the bilateral pulmonary filtrates. She remains on DuoNeb updrafts. She remains on Symbicort. She remains on IV Solu- Medrol. She remains in normal sinus rhythm. She is on anticoagulation with Eliquis. She is also on a combination of amiodarone 200 mg p.o. twice a day and metoprolol 50 mg p.o. twice a day. She is receiving Lasix 20 mg p.o. daily. She is also on enteral feeding for nutritional support which is up to 60 cc an hour and the patient is tolerating the feeding well. The white cell count of 23 with a hemoglobin of 8.1 and a platelet count of 180. Sodium is at 140, BUN 31 with a creatinine of 0.7. She is able to sit up in a chair. Exercise capacity is quite limited. Third cycle of systemic chemotherapy has been held as the patient is currently hospitalized. Chemotherapy is to resume following recovery. On today's evaluation of 09/08/2024, the patient is being seen for a follow-up. The patient is doing well. No specific complaints. Condition essentially unchanged compared to yesterday. Unable to undergo radiation therapy due to some malfunctioning of the machine at the radiation oncology department. The patient remains on 2 L of oxygen nasal cannula. A follow-up chest x-ray was done today and it showed some pulm vascular congestion. Otherwise, the rest of the findings are essentially similar. Continues to receive enteral feeding for nutritional support. Remains on DuoNeb updrafts. Remains on IV Solu-Medrol. Remains on Symbicort. Antibiotic coverage was with vancomycin. Labs show a white cell count of 23, hemoglobin 8.4 and platelet count of 198. Sodium is at 140, BUN is 30 with a creatinine of 0.6. On 09/09/2024, patient is overall condition is unchanged. She remains between 3 and 4 L of nasal cannula. She was taken off the IV Solu-Medrol and she was started on a prednisone burst taper as of yesterday. She remains on Symbicort. She remains on DuoNeb. Continues to have episodes of cough although this is less severe. No fever. No chills. Remains in normal sinus rhythm. Remains on amiodarone. Remains on metoprolol. Noted the patient did not receive radiation therapy to her chest yesterday. The white cell count is 21, hemoglobin 8.3 and platelet count is 217. BUN is 28 with a creatinine of 0.58 and a sodium levels at 139 and a potassium level is at 3.7. Blood sugars at 198. The patient continues to receive enteral feeding for nutritional support through her PEG tube. Feels extremely fatigued. On 09/10/2024, the patient's condition is essentially unchanged. Remains on oxygen at 3 L with a pulse ox of 87%. Medications are DuoNeb updrafts, Symbicort as maintenance and the patient was switched to a prednisone burst taper. Remains on Lasix 20 mg p.o. daily. Cardiac rhythm is sinus. Remains on enteral feeding for nutritional support. White cell count is at 25, hemoglobin 8.9 and a platelet count of 219. Electrolytes are unchanged. Stable renal function. Poor prognosis in general. Objective - Vital Signs Vital signs: Vital Signs Temp 97.9 F 09/10/24 07:40 Pulse 70 09/10/24 11:58 Resp 18 09/10/24 07:40 BP 111/57 09/10/24 07:40 Pulse Ox 100 09/10/24 08:07 FiO2 Intake & Output 09/09/24 09/10/24 09/10/24 18:59 06:59 18:59 Output Total 700 350 Balance -700 -350 Weight 78.7 kg Output: Urine 700 350 Other: Voiding Method Bedside Commode Bedside Commode Diaper Diaper External Catheter # Voids 1 - Exam No acute distress, oriented 3. Currently on 3 L high flow O2. The patient coughing has subsided and she seems to be much more comfortable and breathing is less labored. HEENT examination is grossly unremarkable. Mucous membranes are moist. No oral lesions. Neck supple. Full range of motion. No adenopathy thyromegaly or neck vein distention. Cardiovascular examination reveals regular rhythm rate. S1-S2 normal. No S3 or S4. No discernible murmur noted. Lungs reveal bilateral inspiratory and expiratory rhonchi and wheezes. Breath sounds are diminished. Cough is wet and congested. No crackles. Breath sounds are equal bilaterally. Abdomen soft bowel sounds are heard. No masses or tenderness. PEG tube is noted. Extremities are intact. No cyanosis clubbing or edema. Skin is without rash or lesion. Neurologic examination is brief but nonfocal. - Labs CBC & Chem 7: 09/10/24 05:38 09/10/24 05:38 Labs: Abnormal Lab Results - Last 24 Hours (Table) 09/09/24 09/09/24 09/09/24 Range/Units 12:17 16:49 20:28 WBC (3.8-10.6) k/uL RBC (3.80-5.40) m/uL Hgb (11.4-16.0) gm/dL Hct (34.0-46.0) % RDW (11.5-15.5) % Neutrophils # (Manual) (1.3-7.7) k/uL Lymphocytes # (Manual) (1.0-4.8) k/uL Monocytes # (Manual) (0-1.0) k/uL Carbon Dioxide (22-30) mmol/L BUN (7-17) mg/dL POC Glucose (mg/dL) 198 H 216 H 176 H (70-110) mg/dL Calcium (8.4-10.2) mg/dL 09/10/24 09/10/24 09/10/24 Range/Units 05:38 05:38 07:07 WBC 25.4 H (3.8-10.6) k/uL RBC 2.93 L (3.80-5.40) m/uL Hgb 8.9 L (11.4-16.0) gm/dL Hct 27.7 L (34.0-46.0) % RDW 18.9 H (11.5-15.5) % Neutrophils # (Manual) 23.80 H (1.3-7.7) k/uL Lymphocytes # (Manual) 0.76 L (1.0-4.8) k/uL Monocytes # (Manual) 1.02 H (0-1.0) k/uL Carbon Dioxide 39 H (22-30) mmol/L BUN 28 H (7-17) mg/dL POC Glucose (mg/dL) 114 H (70-110) mg/dL Calcium 8.2 L (8.4-10.2) mg/dL Assessment and Plan Plan: Acute hypoxic respiratory failure, currently on 3 L of oxygen by nasal cannula, oxygenation has been steadily improving. Oxygenation is unchanged over the past 24 hours. Overall respite status is also unchanged over the past 24 hours. Repeat chest x-ray was noted. Findings are essentially unchanged and stable. Atrial fibrillation with rapid ventricular response, back into normal sinus rhythm. Currently on a combination of amiodarone 400 mg p.o. twice a day and metoprolol 50 mg p.o. twice daily and the patient is anticoagulation with Eliquis. The patient's current cardiac rhythm remains sinus. Squamous cell carcinoma of the lung, stage III, locally advanced and the patient has received a total of 11 rounds of radiation therapy, and 2 cycles of systemic chemotherapy. Bilateral consolidation/airspace disease involving the right midlung and the left lower lobe, consider atelectasis versus radiation pulmonary pneumonitis versus bacterial pneumonia. The procalcitonin level at time of admission was not elevated. Chronic obstructive pulmonary disease. Chronic nausea and dysphagia with difficulties in tolerating oral intake and the patient was given a PEG tube for enteral feeding nutritional support. Hearing disorder. Psoriatic arthritis. Former smoker. History of anxiety. History of ADHD. Plan: Patient carries a very poor prognosis. Not absolutely sure whether she is going to be able to tolerate further radiation therapy or chemotherapy. She remains quite debilitated. She continues to receive enteral feeding for nutritional support. Clinically stable, no change in her condition over the past 24 hours Palliative radiation to be continued by rad oncology, received only 1 treatment during her current hospital stay. Will discuss again with radiation oncology. Awaiting further recommendations from medical oncology regarding systemic chemotherapy Titrate oxygen flow to maintain saturation above 90%. Currently on 3 L/min nasal cannula. Continue Symbicort Continue DuoNeb updrafts 4 times a day he patient procalcitonin level is not elevated prednisone 40 mg p.o. daily Continue enteral feeding for nutritional support and the patient was given a PEG tube and currently the patient is receiving Jevity 1.5 at rate of 60 cc an hour Cardiac rhythm is sinus Continue amiodarone 400 mg p.o. twice daily and metoprolol 50 mg p.o. twice a day and anticoagulation with Eliquis Long-term prognosis poor based on above-mentioned comorbidities. Will continue to follow. Time with Patient: Greater than 30
[2024-09-10] MEDS ORDERED: VANCOMYCIN TROUGH DUE 1 EACH MISC MISCELLANE ONE (15:00)
--- NOTE | 2024-09-10 15:32 | P.PN ---
Subjective Progress Note Date: 09/10/24 Hospital Course: 63-year-old female with past medical history of mediastinal squamous cell carc inoma stage III a following with Dr. Wooten in [facility] and Dr. Robledo in [place], chronic hypoxic respiratory failure secondary to COPD on 2 L of nasal cannula, who presented to the ED after she was encouraged to come here by her oncologist.She was supposed to receive her third round of chemo today however she has been very weak and was advised to come here and potentially get a PEG tube placed. She has been having increased difficulty swallowing and now is barely able to swallow liquids. She has also increased her oxygen requirements over the last week. She used to be on 2 L but for the last week has been requiring 3 L. She has been "coughing up bile" with an episode of hemoptysis about a week or two ago post radiation. The hemoptysis has resolved. Patient denying recent fever, abdominal pain, chest pain. She reports chills, severe fatigue, cough productive of a green-omar sputum (reported as "bile"), chest pressure, severe nausea, one episode of vomiting yesterday, dyspnea. Patient reports that IV Compazine is only thing that helps with her nausea. After the patient's left the room, the patient expressed a desire to be on hospice and to be a DNR/DNI stating that she wanted to fight at first but no longer has the energy to. patient was tachycardia, EKG showed A-fib with RVR, she was given Cardizem, started on IV heparin, cardiology consulted. Recommended to continue Cardizem, TTE ordered.EF 55%, trace pericardial effusion, mild mitral regurg, no obvious intracardiac mass or external compression of cardiac structures Hospice consult was placed, patient found that she would feel comfortably proceeding with hospice care although her family at bedside was highly encouraging to continue the treatment. Heme-onc consulted, general surgery consulted for PEG, cardiology consulted for new onset A-fib. Patient was seen by surgical team in the morning, declined any procedures done, later requested to be reevaluated per family request. PEG tube was placed on 09/02, no RD available over the weekend, patient was started on Jevity 1.5 at 10 cc/h 09/01 in the evening patient developed worsening SOB, chest x-ray was done and showed left lower lobe pneumonia or atelectasis, patient was started on cefepime and vancomycin, was given IV Lasix with symptoms improvement. Pulmonology consulted, patient continued on antibiotics, added Solu-Medrol, breathing treatment continued. 09/03: A-fib RVR, heart rate in 130s, BP soft with MAP of 68, now on high flow nasal cannula 9 L. Chest x-ray repeated, improved aeration of the left lung base with focal plateau right midlung contact this is in the right upper medial airspace opacities. 09/04: A-fib rate controlled, feels better, 8 Lnasal cannula. Cardiology following: Metoprolol tartrate 50 twice daily, continue Eliquis 5 twice daily, add oral amiodarone 400 mg twice a day, Lasix 20 daily oral. Viral panel negative. Started trickle feedings 09/05:Shortness of breath improved, now on 6 L nasal cannula converted to sinus rhythm, heart rate controlled . 09/06: Heart rate controlled, sinus, on 3 L, feeling better, pending clearance from cardiology and pulmonology for radiation therapy 09/07: S/p radiation therapy 09/06, heart rate is controlled, feeling more short of breath, tries to be more active, now sitting up in the chair, tolerating tube feeds, afebrile. Leukocytosis is worsening, could be steroid-induced versus after radiation reactive; on day 5 of broad-spectrum antibiotics, can finish 7 d ays of antibiotics given her immunocompromise state ,Subjective: Seen and examined this morning, resting in bed, still feeling quite weak. Radiation tx held til wednesday, with ongoing plans for radiation confirmed by nursing today. Vitals Signs Reviewed. General: , ill-appearing Derm: [warm], [dry] Head: [atraumatic], [normocephalic], [symmetric] Eyes: [EOMI], [no lid lag], [anicteric sclera] Mouth: [no lip lesion], [mucus membranes moist] Cardiovascular: [S1S2 irregular, tachycardic Lungs: [CTA bilateral], diminished left lower basilar breath sounds] , [no accessory muscle use] Abdominal: [soft], [ nontender to palpation], [no guarding], [no appreciable organomegaly], bruised around PEG tube insertion site Ext: [no gross muscle atrophy], [no edema], [no contractures] Neuro: [ CN II-XI grossly intact], [no focal neuro deficits] Psych: [Alert], [oriented], [appropriate affect] Data Reviewed Today: Pertinent Labs: Leukocytosis going up to 23.3, hemoglobin 8.1, platelet count normal, sodium 140, potassium 3.2, creatinine normal, glucose is 189 Assessment and Plan: New onset A-fib with RVR -Cardiology consulted: Metoprolol tartrate 50 twice daily, continue Eliquis 5 twice daily, oral amiodarone 400 mg twice a day, decrease to 200 mg twice daily after 1 week. Lasix 20 daily oral -TTE ordered, EF 55%, trace pericardial effusion, mild mitral regurg, no obvious intracardiac mass or external compression of cardiac structures Acute on chronic hypoxic respiratory failure secondary to COPD exacerbation, left lower lobe community-acquired pneumonia Steroid-induced hyperglycemia Steroid-induced leukocytosis -Continue breathing treatment, added Symbicort -Pulmonology following -Continue vancomycin and cefepime 2 g every 8 hours SOT 09/02, plan for 7 days given ongoing leukocytosis despite tapering steroids -Decreased Solu-Medrol 60 mg to every 12 hours -on 3 L NC today -SSI and Accu-Cheks, added Levemir 5 twice daily, increase to 7 twice daily Stage III NSCLC Intractable nausea secondary to above, resolved Dysphagia secondary to above, possible component of mass effect status post PEG tube 09/02, advancing rate Hypoproteinemia, hypoalbuminemia secondary to above Chronic normocytic anemia -Continue IV Compazine -Radiation oncology and oncology following, status post RT therapy 09/06 -Surgery on board -Nutrition consulted for tube feeding, tolerating well, at goal -Phosphorus level ordered-normal -Discussed with RN, social work Hypokalemia: Replaced, follow-up repeat BMP in the morning DVT ppx: Eliquis Code status: full code, discussed with today, code status still full but under further consideration. Anticipated discharge place: Pending clinical course Anticipated discharge time: Pending clinical course Objective - Vital Signs Vital signs: Vital Signs Temp 97.4 F L 09/10/24 14:00 Pulse 77 09/10/24 15:23 Resp 16 09/10/24 14:00 BP 121/65 09/10/24 14:00 Pulse Ox 97 09/10/24 14:00 FiO2 Intake & Output 09/09/24 09/10/24 09/10/24 18:59 06:59 18:59 Output Total 700 350 Balance -700 -350 Weight 78.7 kg Output: Urine 700 350 Other: Voiding Method Bedside Commode Bedside Commode Bedside Commode Diaper Diaper Diaper External Catheter # Voids 1 - Labs CBC & Chem 7: 09/10/24 05:38 09/10/24 05:38 Labs: Abnormal Lab Results - Last 24 Hours (Table) 09/09/24 09/09/24 09/10/24 Range/Units 16:49 20:28 05:38 WBC 25.4 H (3.8-10.6) k/uL RBC 2.93 L (3.80-5.40) m/uL Hgb 8.9 L (11.4-16.0) gm/dL Hct 27.7 L (34.0-46.0) % RDW 18.9 H (11.5-15.5) % Neutrophils # (Manual) 23.80 H (1.3-7.7) k/uL Lymphocytes # (Manual) 0.76 L (1.0-4.8) k/uL Monocytes # (Manual) 1.02 H (0-1.0) k/uL Carbon Dioxide (22-30) mmol/L BUN (7-17) mg/dL POC Glucose (mg/dL) 216 H 176 H (70-110) mg/dL Calcium (8.4-10.2) mg/dL 09/10/24 09/10/24 09/10/24 Range/Units 05:38 07:07 12:13 WBC (3.8-10.6) k/uL RBC (3.80-5.40) m/uL Hgb (11.4-16.0) gm/dL Hct (34.0-46.0) % RDW (11.5-15.5) % Neutrophils # (Manual) (1.3-7.7) k/uL Lymphocytes # (Manual) (1.0-4.8) k/uL Monocytes # (Manual) (0-1.0) k/uL Carbon Dioxide 39 H (22-30) mmol/L BUN 28 H (7-17) mg/dL POC Glucose (mg/dL) 114 H 177 H (70-110) mg/dL Calcium 8.2 L (8.4-10.2) mg/dL
[2024-09-10] MEDS ORDERED: FLUTICASONE NASAL 50MCG/SPRAY 16GM BTL EA NOSTRIL PRN (15:33)
[2024-09-10 17:35] LABS: Glucose,Whole Blood 167 mg/dL (70-110)
[2024-09-10 19:59] LABS: Glucose,Whole Blood 138 mg/dL (70-110)
[2024-09-10] MEDS: oxyCODONE-APAP 7.5-325MG 1 EACH TAB PO PRN (21:22)
[2024-09-11 07:10] LABS: Glucose,Whole Blood 108 mg/dL (70-110)
[2024-09-11] MEDS: HYDROcodone/APAP 7.5-325MG 1 EACH TAB PO PRN (09:40)
[2024-09-11 12:37] LABS: Glucose,Whole Blood 123 mg/dL (70-110)
--- NOTE | 2024-09-11 13:49 | P.PN ---
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 Wooten in [facility] and Dr. Robledo in [place], chronic hypoxic respiratory failure secondary to COPD on 2 L of nasal cannula, who presented to the ED after she was encouraged to come here by her oncologist.She was supposed to receive her third round of chemo today however she has been very weak and was advised to come here and potentially get a PEG tube placed. She has been having increased difficulty swallowing and now is barely able to swallow liquids. She has also increased her oxygen requirements over the last week. She used to be on 2 L but for the last week has been requiring 3 L. She has been "coughing up bile" with an episode of hemoptysis about a week or two ago post radiation. The hemoptysis has resolved. Patient denying recent fever, abdominal pain, chest pain. She reports chills, severe fatigue, cough productive of a green-omar sputum (reported as "bile"), chest pressure, severe nausea, one episode of vomiting yesterday, dyspnea. Patient reports that IV Compazine is only thing that helps with her nausea. After the patient's left the room, the patient expressed a desire to be on hospice and to be a DNR/DNI stating that she wanted to fight at first but no longer has the energy to. patient was tachycardia, EKG showed A-fib with RVR, she was given Cardizem, started on IV heparin, cardiology consulted. Recommended to continue Cardizem, TTE ordered.EF 55%, trace pericardial effusion, mild mitral regurg, no obvious intracardiac mass or external compression of cardiac structures Hospice consult was placed, patient found that she would feel comfortably proceeding with hospice care although her family at bedside was highly encouraging to continue the treatment. Heme-onc consulted, general surgery consulted for PEG, cardiology consulted for new onset A-fib. Patient was seen by surgical team in the morning, declined any procedures done, later requested to be reevaluated per family request. PEG tube was placed on 09/02, no RD available over the weekend, patient was started on Jevity 1.5 at 10 cc/h 09/01 in the evening patient developed worsening SOB, chest x-ray was done and showed left lower lobe pneumonia or atelectasis, patient was started on cefepime and vancomycin, was given IV Lasix with symptoms improvement. Pulmonology consulted, patient continued on antibiotics, added Solu-Medrol, breathing treatment continued. 09/03: A-fib RVR, heart rate in 130s, BP soft with MAP of 68, now on high flow nasal cannula 9 L. Chest x-ray repeated, improved aeration of the left lung base with focal plateau right midlung contact this is in the right upper medial airspace opacities. 09/04: A-fib rate controlled, feels better, 8 Lnasal cannula. Cardiology following: Metoprolol tartrate 50 twice daily, continue Eliquis 5 twice daily, add oral amiodarone 400 mg twice a day, Lasix 20 daily oral. Viral panel negative. Started trickle feedings 09/05:Shortness of breath improved, now on 6 L nasal cannula converted to sinus rhythm, heart rate controlled . 09/06: Heart rate controlled, sinus, on 3 L, feeling better, pending clearance from cardiology and pulmonology for radiation therapy 09/07: S/p radiation therapy 09/06, heart rate is controlled, feeling more short of breath, tries to be more active, now sitting up in the chair, tolerating tube feeds, afebrile. Leukocytosis is worsening, could be steroid-induced versus after radiation reactive; on day 5 of broad-spectrum antibiotics, can finish 7 d ays of antibiotics given her immunocompromise state ,Subjective: Seen and examined this morning, resting in bed, still feeling quite weak. Pt rec'd radiation this morning. Discussed with oncology, plan is for inpt chemo starting tomorrow. Vitals Signs Reviewed. General: , ill-appearing Derm: [warm], [dry] Head: [atraumatic], [normocephalic], [symmetric] Eyes: [EOMI], [no lid lag], [anicteric sclera] Mouth: [no lip lesion], [mucus membranes moist] Cardiovascular: [S1S2 irregular, tachycardic Lungs: [CTA bilateral], diminished left lower basilar breath sounds] , [no accessory muscle use] Abdominal: [soft], [ nontender to palpation], [no guarding], [no appreciable organomegaly], bruised around PEG tube insertion site Ext: [no gross muscle atrophy], [no edema], [no contractures] Neuro: [ CN II-XI grossly intact], [no focal neuro deficits] Psych: [Alert], [oriented], [appropriate affect] Data Reviewed Today: Pertinent Labs: Leukocytosis going up to 23.3, hemoglobin 8.1, platelet count normal, sodium 140, potassium 3.2, creatinine normal, glucose is 189 Assessment and Plan: New onset A-fib with RVR -Cardiology consulted: Metoprolol tartrate 50 twice daily, continue Eliquis 5 twice daily, oral amiodarone 400 mg twice a day, decrease to 200 mg twice daily after 1 week. Lasix 20 daily oral -TTE ordered, EF 55%, trace pericardial effusion, mild mitral regurg, no obvious intracardiac mass or external compression of cardiac structures Acute on chronic hypoxic respiratory failure secondary to COPD exacerbation, left lower lobe community-acquired pneumonia Steroid-induced hyperglycemia Steroid-induced leukocytosis -Continue breathing treatment, added Symbicort -Pulmonology following -Continue vancomycin and cefepime 2 g every 8 hours SOT 09/02, plan for 7 days given ongoing leukocytosis despite tapering steroids -Decreased Solu-Medrol 60 mg to every 12 hours -on 3 L NC today -SSI and Accu-Cheks, added Levemir 5 twice daily, increase to 7 twice daily Stage III NSCLC Intractable nausea secondary to above, resolved Dysphagia secondary to above, possible component of mass effect status post PEG tube 09/02, advancing rate Hypoproteinemia, hypoalbuminemia secondary to above Chronic normocytic anemia -Continue IV Compazine -Radiation oncology and oncology following, status post RT therapy 09/06 -Surgery on board -Nutrition consulted for tube feeding, tolerating well, at goal -Phosphorus level ordered-normal -Discussed with RN, social work -Oncology plans for inpt chemo starting tomorrow 09/11 Hypokalemia: Replaced, follow-up repeat BMP in the morning DVT ppx: Eliquis Code status: full code, discussed with today, code status still full but under further consideration. Anticipated discharge place: Pending clinical course Anticipated discharge time: Pending clinical course Objective - Vital Signs Vital signs: Vital Signs Temp 98.3 F 09/11/24 07:28 Pulse 88 09/11/24 12:15 Resp 19 09/11/24 07:28 BP 106/51 02/24/25 07:28 Pulse Ox 99 09/11/24 07:28 FiO2 Intake & Output 09/10/24 09/11/24 09/11/24 18:59 06:59 18:59 Intake Total 780 Output Total 200 Balance 580 Weight 77.7 kg Intake: Tube Feeding 660 Other 120 Output: Urine 200 Other: Voiding Method Bedside Commode Diaper Diaper External Catheter # Voids 3 - Labs CBC & Chem 7: 09/10/24 05:38 09/10/24 05:38 Labs: Abnormal Lab Results - Last 24 Hours (Table) 09/10/24 09/10/24 09/11/24 Range/Units 17:31 19:53 12:21 POC Glucose (mg/dL) 167 H 138 H 123 H (70-110) mg/dL
[2024-09-11 17:26] LABS: Glucose,Whole Blood 282 mg/dL (70-110)
--- NOTE | 2024-09-11 17:44 | P.PN ---
Subjective Progress Note Date: 09/11/24 Pt reporting feeling improved. Ambulation and sytrength improving. Has been able to tolerate small amount of solid foods. Continues tube feedings. Objective - Vital Signs Vital signs: Vital Signs Temp 98.3 F 09/11/24 07:28 Pulse 88 09/11/24 12:15 Resp 19 09/11/24 07:28 BP 106/51 09/11/24 07:28 Pulse Ox 99 09/11/24 07:28 FiO2 Intake & Output 09/10/24 09/11/24 09/11/24 18:59 06:59 18:59 Intake Total 780 Output Total 200 Balance 580 Weight 77.7 kg Intake: Tube Feeding 660 Other 120 Output: Urine 200 Other: Voiding Method Bedside Commode Diaper Diaper External Catheter # Voids 3 - Constitutional General appearance: Present: average body habitus, no acute distress - EENT Eyes: Present: anicteric sclerae, EOMI ENT: Present: hearing grossly normal - Respiratory Details: breathing is even and unlabored - Cardiovascular Details: skin warm and dry - Gastrointestinal General gastrointestinal: Present: soft. Absent: tenderness - Integumentary Integumentary: Absent: cyanotic - Neurologic Neurologic: Present: CNII-XII intact - Musculoskeletal Musculoskeletal: Present: generalized weakness - Psychiatric Psychiatric: Present: A&O x's 3 - Labs CBC & Chem 7: 09/10/24 05:38 09/10/24 05:38 Labs: Abnormal Lab Results - Last 24 Hours (Table) 09/10/24 09/10/24 09/11/24 Range/Units 17:31 19:53 12:21 POC Glucose (mg/dL) 167 H 138 H 123 H (70-110) mg/dL Assessment and Plan (1) Atrial fibrillation with rapid ventricular response Current Visit: Yes Status: Acute Priority: High Code(s): I48.91 - UNSPECIFIED ATRIAL FIBRILLATION SNOMED Code(s): 834330108788188 (2) Dysphagia Current Visit: Yes Status: Acute Priority: High Code(s): R13.10 - DYSPHAGIA, UNSPECIFIED SNOMED Code(s): 10930224 (3) Squamous cell carcinoma lung Current Visit: Yes Status: Acute Priority: High Code(s): C34.90 - MALIGNANT NEOPLASM OF UNSP PART OF UNSP BRONCHUS OR LUNG SNOMED Code(s): 770388671 Plan: N/V, dysphagia, poor oral intake -Chest x-ray on admit showed development of right lung linear atelectasis. Known mediastinal mass. COPD changes. -Medications for symptoms ordered, pt doing much better. Odynophagia less. Pending swallow eval for recommendation -PEG tube placed, tolerating tube feeds at this time -[place] that pt symptoms are 2/2 rebound inflammation of mass abutting esophagus interfering with motility. A fib with RVR -Rate controlled per notes -Cardiology following Squamous cell carcinoma of lung -Oncology history as stated in consult -During last admit, pt was started on radiation and received cycle 1 of carbo/taxol. Since discharge pt has continued on RT, and completed cycle 2 of carbo/taxol on 08/24. Cycle 3 held due to progressing weakness and n/v. -Continues with XRT -Did get Oncology care transferred locally. Appt in DC plan. -Pt has missed 2 treatments due to prolonged admission. Will give cycle 3 weekly carbo/taxol inpt, orders have been placed Plan was discussed with admitting team today Dr stanford: I have seen and examined pt, performed H&P, developed impression and plan of care. Discussed with dictator. Agree with documentation, dictated as a scribe.
[2024-09-11] MEDS: AMIODARONE 200 MG TAB PO SCH (20:02)
[2024-09-11 20:03] LABS: Glucose,Whole Blood 146 mg/dL (70-110)
[2024-09-12 07:16] LABS: Glucose,Whole Blood 109 mg/dL (70-110)
[2024-09-12 08:46] LABS: ALT 45 U/L (8-44); AST 17 U/L (13-35); Albumin 2.9 g/dL (3.8-4.9); Albumin/Globulin Ratio 1.32 Ratio (1.60-3.17); Alkaline Phosphatase 118 U/L (41-126); BUN/Creat Ratio 35.17 Ratio (12.00-20.00); Blood Urea Nitrogen 21.1 mg/dL (9.0-27.0); Calcium 8.4 mg/dL (8.7-10.3); Carbon Dioxide 34.7 mmol/L (21.6-31.8); Chloride 99 mmol/L (96-109); Globulin 2.2 g/dL (1.6-3.3); Glucose 108 mg/dL (70-110); Potassium 4.7 mmol/L (3.5-5.5); Sodium 141 mmol/L (135-145); Total Bilirubin 0.2 mg/dL (0.3-1.2); Total Protein 5.1 g/dL (6.2-8.2)
[2024-09-12 09:12] LABS: Basophils # (A) 0.02 X 10*3/uL (0.00-0.10); Basophils % (A) 0.1 %; Eosinophils # (A) 0.04 X 10*3/uL (0.04-0.35); Eosinophils % (A) 0.2 %; HCT 25.4 % (37.2-46.3); HGB 7.6 g/dL (12.0-15.0); Lymphocytes # (A) 0.84 X 10*3/uL (0.90-5.00); Lymphocytes % (A) 4.3 %; MCH 29.3 pg (27.0-32.0); MCHC 29.9 g/dL (32.0-37.0); MCV 98.1 FL (80.0-97.0); Mean Platelet Volume 11.9 FL (9.5-12.2); Monocytes # (A) 0.94 X 10*3/uL (0.20-1.00); Monocytes % (A) 4.8 %; NRBC Per 100 WBC 0.02 X 10*3/uL (0.00-0.01); Neutrophils # (A) 17.58 X 10*3/uL (1.80-7.70); Neutrophils % (A) 89.9 %; Platelet Count 212 X 10*3/uL (140-440); RBC 2.59 X 10*6/uL (4.10-5.20); RDW 20.1 % (11.5-14.5); WBC 19.56 X 10*3/uL (4.50-10.00)
--- NOTE | 2024-09-12 10:31 | P.PN ---
Progress Note - Text Progress Note Date: 09/12/24 Pt not seen during morning rounds due to being away for radiation treatment
[2024-09-12 11:57] LABS: Glucose,Whole Blood 122 mg/dL (70-110)
[2024-09-12] MEDS ORDERED: DOCUSATE 100 MG CAP PO PRN (12:18)
[2024-09-12] MEDS: diphenhydrAMINE 50 MG/ML 1 ML VIAL IVP ONE (12:52)
[2024-09-12] MEDS: DEXAMETHASONE SOD PHOSPHATE 10 MG/ML 1 ML VIAL IVP ONE (12:53)
[2024-09-12] MEDS: FAMOTIDINE 20 MG/2 ML VIAL IVP ONE (12:54)
[2024-09-12] MEDS: ONDANSETRON 16 MG in SODIUM CHLORIDE 0.9% 50 ML IVPB ONE (12:55)
[2024-09-12] MEDS: PACLITAXEL IV ONE (13:47)
[2024-09-12] MEDS: SODIUM CHLORIDE 0.9% IV ONE ×2 (13:47→14:51)
--- NOTE | 2024-09-12 14:16 | P.PN ---
Subjective Progress Note Date: 09/12/24 Pt reporting feeling improved. Ambulation and strength improving. Has been able to tolerate small amount of solid foods. Continues tube feedings. Inpt chemo scheduled for today Objective - Vital Signs Vital signs: Vital Signs Temp 97.7 F 09/12/24 07:50 Pulse 76 09/12/24 11:16 Resp 12 09/12/24 07:50 BP 109/68 09/12/24 01:38 Pulse Ox 100 09/12/24 07:50 FiO2 Intake & Output 09/11/24 09/12/24 09/12/24 18:59 06:59 18:59 Intake Total 1560 900 540 Balance 1560 900 540 Weight 77.7 kg 88 kg Intake: Oral 1080 120 540 Tube Feeding 480 660 Other 120 Other: Voiding Method Diaper External Catheter # Voids 3 2 1 # Bowel Movements 1 1 - Constitutional General appearance: Present: average body habitus, no acute distress - EENT Eyes: Present: anicteric sclerae, EOMI ENT: Present: hearing grossly normal - Respiratory Details: breathing is even and unlabored - Cardiovascular Details: skin warm and dry - Integumentary Integumentary: Absent: cyanotic, jaundiced - Musculoskeletal Musculoskeletal: Present: strength equal bilaterally - Psychiatric Psychiatric: Present: A&O x's 3 - Labs CBC & Chem 7: 09/12/24 04:09 09/12/24 04:09 Labs: Abnormal Lab Results - Last 24 Hours (Table) 09/11/24 09/11/24 09/11/24 Range/Units 12:21 17:20 20:00 WBC (4.50-10.00) X 10*3/uL RBC (4.10-5.20) X 10*6/uL Hgb (12.0-15.0) g/dL Hct (37.2-46.3) % MCV (80.0-97.0) FL MCHC (32.0-37.0) g/dL RDW (11.5-14.5) % Immature Gran # (0.00-0.04) X 10*3/uL Neutrophils # (1.80-7.70) X 10*3/uL Lymphocytes # (0.90-5.00) X 10*3/uL NRBC/100 WBC Diff (0.00-0.01) X 10*3/uL Carbon Dioxide (21.6-31.8) mmol/L BUN/Creatinine Ratio (12.00-20.00) Ratio POC Glucose (mg/dL) 123 H 282 H 146 H (70-110) mg/dL Calcium (8.7-10.3) mg/dL Total Bilirubin (0.3-1.2) mg/dL ALT (8-44) U/L Total Protein (6.2-8.2) g/dL Albumin (3.8-4.9) g/dL Albumin/Globulin Ratio (1.60-3.17) Ratio 09/12/24 09/12/24 09/12/24 Range/Units 04:09 04:09 11:56 WBC 19.56 H (4.50-10.00) X 10*3/uL RBC 2.59 L (4.10-5.20) X 10*6/uL Hgb 7.6 L (12.0-15.0) g/dL Hct 25.4 L (37.2-46.3) % MCV 98.1 H (80.0-97.0) FL MCHC 29.9 L (32.0-37.0) g/dL RDW 20.1 H (11.5-14.5) % Immature Gran # 0.14 H (0.00-0.04) X 10*3/uL Neutrophils # 17.58 H (1.80-7.70) X 10*3/uL Lymphocytes # 0.84 L (0.90-5.00) X 10*3/uL NRBC/100 WBC Diff 0.02 H (0.00-0.01) X 10*3/uL Carbon Dioxide 34.7 H (21.6-31.8) mmol/L BUN/Creatinine Ratio 35.17 H (12.00-20.00) Ratio POC Glucose (mg/dL) 122 H (70-110) mg/dL Calcium 8.4 L (8.7-10.3) mg/dL Total Bilirubin 0.2 L (0.3-1.2) mg/dL ALT 45 H (8-44) U/L Total Protein 5.1 L (6.2-8.2) g/dL Albumin 2.9 L (3.8-4.9) g/dL Albumin/Globulin Ratio 1.32 L (1.60-3.17) Ratio Assessment and Plan (1) Atrial fibrillation with rapid ventricular response Current Visit: Yes Status: Acute Priority: High Code(s): I48.91 - UNSPECIFIED ATRIAL FIBRILLATION SNOMED Code(s): 140305901737224 (2) Dysphagia Current Visit: Yes Status: Acute Priority: High Code(s): R13.10 - DYSPHAGIA, UNSPECIFIED SNOMED Code(s): 67319909 (3) Squamous cell carcinoma lung Current Visit: Yes Status: Acute Priority: High Code(s): C34.90 - MA LIGNANT NEOPLASM OF UNSP PART OF UNSP BRONCHUS OR LUNG SNOMED Code(s): 25 3033063 Plan: N/V, dysphagia, poor oral intake -Chest x-ray on admit showed development of right lung linear atelectasis. Known mediastinal mass. COPD changes. -Medications for symptoms ordered, pt doing much better. Odynophagia less. No aspiration noted on swallow eval -PEG tube placed, tolerating tube feeds at this time. Tolerating small amounts of solid food, appetite improving -[place] that pt symptoms are 2/2 rebound inflammation of mass abutting esophagus interfering with motility. A fib with RVR -Rate controlled per notes -Cardiology following Squamous cell carcinoma of lung -Oncology history as stated in consult -During last admit, pt was started on radiation and received cycle 1 of carbo/taxol. Since discharge pt has continued on RT, and completed cycle 2 of carbo/taxol on 08/24. Cycle 3 held due to progressing weakness and n/v. -Continues with XRT -Did get Oncology care transferred locally. Appt in DC plan. -Pt has missed 2 treatments due to prolonged admission. Will give cycle 3 weekly carbo/taxol inpt, orders have been placed. Chemo scheduled for today attests: I have seen and examined pt, performed H&P, developed impression and plan of care. Discussed with dictator. Agree with documentation, dictated as a scribe.
[2024-09-12] MEDS: CARBOPLATIN IV ONE (14:51)
[2024-09-12] MEDS: HYDROcodone/APAP 10-325MG 1 EACH TAB PO PRN (16:15)
[2024-09-12] MEDS: SALT AND SODA MOUTHWASH 1,000 ML PO SCH (16:16)
[2024-09-12 17:07] LABS: Glucose,Whole Blood 254 mg/dL (70-110)
[2024-09-12 20:23] LABS: Glucose,Whole Blood 290 mg/dL (70-110)
[2024-09-13 07:12] LABS: Glucose,Whole Blood 178 mg/dL (70-110)
[2024-09-13 08:32] LABS: Basophils # (A) 0.02 X 10*3/uL (0.00-0.10); Basophils % (A) 0.1 %; Eosinophils # (A) 0 X 10*3/uL (0.04-0.35); Eosinophils % (A) 0 %; HCT 23.3 % (37.2-46.3); HGB 7.1 g/dL (12.0-15.0); Lymphocytes # (A) 0.29 X 10*3/uL (0.90-5.00); Lymphocytes % (A) 1.7 %; MCHC 30.5 g/dL (32.0-37.0); MCV 95.1 FL (80.0-97.0); Mean Platelet Volume 11.6 FL (9.5-12.2); Monocytes # (A) 0.55 X 10*3/uL (0.20-1.00); Monocytes % (A) 3.2 %; NRBC Per 100 WBC 0 X 10*3/uL (0.00-0.01); Neutrophils # (A) 16.38 X 10*3/uL (1.80-7.70); Neutrophils % (A) 94.1 %; Platelet Count 225 X 10*3/uL (140-440); RBC 2.45 X 10*6/uL (4.10-5.20); RDW 19.6 % (11.5-14.5)
[2024-09-13 09:34] LABS: ALT 41 U/L (8-44); AST 16 U/L (13-35); Albumin 2.8 g/dL (3.8-4.9); Albumin/Globulin Ratio 1.27 Ratio (1.60-3.17); Alkaline Phosphatase 108 U/L (41-126); Blood Urea Nitrogen 18.2 mg/dL (9.0-27.0); Calcium 8.1 mg/dL (8.7-10.3); Carbon Dioxide 30.1 mmol/L (21.6-31.8); Chloride 98 mmol/L (96-109); Globulin 2.2 g/dL (1.6-3.3); Glucose 168 mg/dL (70-110); Potassium 5.3 mmol/L (3.5-5.5); Sodium 137 mmol/L (135-145); Total Bilirubin <0.2 mg/dL (0.3-1.2)
[2024-09-13 12:25] LABS: Glucose,Whole Blood 177 mg/dL (70-110)
--- NOTE | 2024-09-13 15:36 | P.PN ---
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 Wooten in [facility] and Dr. Robledo in [place], chronic hypoxic respiratory failure secondary to COPD on 2 L of nasal cannula, who presented to the ED after she was encouraged to come here by her oncologist.She was supposed to receive her third round of chemo today however she has been very weak and was advised to come here and potentially get a PEG tube placed. She has been having increased difficulty swallowing and now is barely able to swallow liquids. She has also increased her oxygen requirements over the last week. She used to be on 2 L but for the last week has been requiring 3 L. She has been "coughing up bile" with an episode of hemoptysis about a week or two ago post radiation. The hemoptysis has resolved. Patient denying recent fever, abdominal pain, chest pain. She reports chills, severe fatigue, cough productive of a green-omar sputum (reported as "bile"), chest pressure, severe nausea, one episode of vomiting yesterday, dyspnea. Patient reports that IV Compazine is only thing that helps with her nausea. After the patient's left the room, the patient expressed a desire to be on hospice and to be a DNR/DNI stating that she wanted to fight at first but no longer has the energy to. patient was tachycardia, EKG showed A-fib with RVR, she was given Cardizem, started on IV heparin, cardiology consulted. Recommended to continue Cardizem, TTE ordered.EF 55%, trace pericardial effusion, mild mitral regurg, no obvious intracardiac mass or external compression of cardiac structures Hospice consult was placed, patient found that she would feel comfortably proceeding with hospice care although her family at bedside was highly encouraging to continue the treatment. Heme-onc consulted, general surgery consulted for PEG, cardiology consulted for new onset A-fib. Patient was seen by surgical team in the morning, declined any procedures done, later requested to be reevaluated per family request. PEG tube was placed on 09/02, no RD available over the weekend, patient was started on Jevity 1.5 at 10 cc/h 09/01 in the evening patient developed worsening SOB, chest x-ray was done and showed left lower lobe pneumonia or atelectasis, patient was started on cefepime and vancomycin, was given IV Lasix with symptoms improvement. Pulmonology consulted, patient continued on antibiotics, added Solu-Medrol, breathing treatment continued. 09/03: A-fib RVR, heart rate in 130s, BP soft with MAP of 68, now on high flow nasal cannula 9 L. Chest x-ray repeated, improved aeration of the left lung base with focal plateau right midlung contact this is in the right upper medial airspace opacities. 09/04: A-fib rate controlled, feels better, 8 Lnasal cannula. Cardiology following: Metoprolol tartrate 50 twice daily, continue Eliquis 5 twice daily, add oral amiodarone 400 mg twice a day, Lasix 20 daily oral. Viral panel negative. Started trickle feedings 09/05:Shortness of breath improved, now on 6 L nasal cannula converted to sinus rhythm, heart rate controlled . 09/06: Heart rate controlled, sinus, on 3 L, feeling better, pending clearance from cardiology and pulmonology for radiation therapy 09/07: S/p radiation therapy 09/06, heart rate is controlled, feeling more short of breath, tries to be more active, now sitting up in the chair, tolerating tube feeds, afebrile. Leukocytosis is worsening, could be steroid-induced versus after radiation reactive; on day 5 of broad-spectrum antibiotics, finish 7 days of antibiotics given her immunocompromise state. 09/12 chemotherapy resumed, patient tolerated fairly well ,Subjective: Seen and examined this morning, resting in clinic, feeling better, getting ready for discharge Vitals Signs Reviewed. General: , ill-appearing Derm: [warm], [dry] Head: [atraumatic], [normocephalic], [symmetric] Eyes: [EOMI], [no lid lag], [anicteric sclera] Mouth: [no lip lesion], [mucus membranes moist] Cardiovascular: [S1S2 irregular, tachycardic Lungs: [CTA bilateral], diminished left lower basilar breath sounds] , [no accessory muscle use] Abdominal: [soft], [ nontender to palpation], [no guarding], [no appreciable organomegaly], bruised around PEG tube insertion site Ext: [no gross muscle atrophy], [no edema], [no contractures] Neuro: [ CN II-XI grossly intact], [no focal neuro deficits] Psych: [Alert], [oriented], [appropriate affect] Data Reviewed Today: Pertinent Labs: WBC 17.4, hemoglobin 7.1, platelet count 225, sodium, potassium, creatinine nor mal, blood glucose 177, AST and ALT normal. Assessment and Plan: New onset A-fib with RVR -Cardiology consulted: Metoprolol tartrate 50 twice daily, continue Eliquis 5 twice daily, oral amiodarone 400 mg twice a day, decrease to 200 mg twice daily after 1 week. Lasix 20 daily oral -TTE ordered, EF 55%, trace pericardial effusion, mild mitral regurg, no obvious intracardiac mass or external compression of cardiac structures Acute on chronic hypoxic respiratory failure secondary to COPD exacerbation, left lower lobe community-acquired pneumonia Steroid-induced hyperglycemia Steroid-induced leukocytosis -Continue breathing treatment, added Symbicort -Pulmonology following -Continue vancomycin and cefepime 2 g every 8 hours SOT 09/02, plan for 7 days given ongoing leukocytosis despite tapering steroids -Continue oral prednisone 40 daily -on 3 L NC today -SSI and Accu-Cheks, continue with Levemir increased to 10 twice daily Acute on chronic normocytic anemia, anemia of chronic disease -Iron in June, ferritin 403 -Repeat CBC in the morning -Denies blood in stool or urine Stage III NSCLC Intractable nausea secondary to above, resolved Dysphagia secondary to above, possible component of mass effect status post PEG tube 09/02, advancing rate Hypoproteinemia, hypoalbuminemia secondary to above -Continue IV Compazine -Radiation oncology and oncology following, -Surgery on board -Nutrition consulted for tube feeding, tolerating well, at goal -Discussed with social work -Oncology ordered chemo, tx done 09/12 -Likely discharge 09/14 if hemoglobin stable and cleared by oncology Hypokalemia, resolved DVT ppx: Eliquis Code status: full code, discussed with today, code status still full but under further consideration. Anticipated discharge place: [facility] Anticipated discharge time: 24 hours if cleared by oncology Objective - Vital Signs Vital signs: Vital Signs Temp 97.5 F L 09/13/24 15:00 Pulse 71 09/13/24 15:00 Resp 12 09/13/24 15:00 BP 119/55 09/13/24 15:00 Pulse Ox 96 09/13/24 13:46 FiO2 Intake & Output 09/12/24 09/13/24 09/13/24 18:59 06:59 18:59 Intake Total 780 1720 Balance 780 1720 Weight 101 kg Intake: Oral 540 1000 Tube Feeding 240 720 Other: Voiding Method Diaper Diaper External Catheter External Catheter # Voids 3 3 1 # Bowel Movements 3 2 - Labs CBC & Chem 7: 09/13/24 04:38 09/13/24 04:38 Labs: Abnormal Lab Results - Last 24 Hours (Table) 09/12/24 09/12/24 09/13/24 Range/Units 17:05 20:22 04:38 WBC 17.40 H (4.50-10.00) X 10*3/uL RBC 2.45 L (4.10-5.20) X 10*6/uL Hgb 7.1 L (12.0-15.0) g/dL Hct 23.3 L (37.2-46.3) % MCHC 30.5 L (32.0-37.0) g/dL RDW 19.6 H (11.5-14.5) % Immature Gran # 0.16 H (0.00-0.04) X 10*3/uL Neutrophils # 16.38 H (1.80-7.70) X 10*3/uL Lymphocytes # 0.29 L (0.90-5.00) X 10*3/uL Eosinophils # 0 L (0.04-0.35) X 10*3/uL BUN/Creatinine Ratio (12.00-20.00) Ratio Glucose (70-110) mg/dL POC Glucose (mg/dL) 254 H 290 H (70-110) mg/dL Calcium (8.7-10.3) mg/dL Total Bilirubin (0.3-1.2) mg/dL Total Protein (6.2-8.2) g/dL Albumin (3.8-4.9) g/dL Albumin/Globulin Ratio (1.60-3.17) Ratio 09/13/24 09/13/24 09/13/24 Range/Units 04:38 07:11 12:23 WBC (4.50-10.00) X 10*3/uL RBC (4.10-5.20) X 10*6/uL Hgb (12.0-15.0) g/dL Hct (37.2-46.3) % MCHC (32.0-37.0) g/dL RDW (11.5-14.5) % Immature Gran # (0.00-0.04) X 10*3/uL Neutrophils # (1.80-7.70) X 10*3/uL Lymphocytes # (0.90-5.00) X 10*3/uL Eosinophils # (0.04-0.35) X 10*3/uL BUN/Creatinine Ratio 26.00 H (12.00-20.00) Ratio Glucose 168 H (70-110) mg/dL POC Glucose (mg/dL) 178 H 177 H (70-110) mg/dL Calcium 8.1 L (8.7-10.3) mg/dL Total Bilirubin <0.2 L (0.3-1.2) mg/dL Total Protein 5.0 L (6.2-8.2) g/dL Albumin 2.8 L (3.8-4.9) g/dL Albumin/Globulin Ratio 1.27 L (1.60-3.17) Ratio
--- NOTE | 2024-09-13 16:36 | P.PN ---
Subjective Progress Note Date: 09/13/24 Pt reporting feeling improved. Ambulation and strength improving. Has been able to tolerate small amount of solid foods. Continues tube feedings. Reports pain being well controlled on norco. Inpt chemo completed yesterday. Hgb 7.1, WBC 17.4, plt 225. Objective - Vital Signs Vital signs: Vital Signs Temp 97.7 F 09/13/24 08:00 Pulse 72 09/13/24 08:58 Resp 12 09/13/24 08:00 BP 116/79 09/13/24 08:00 Pulse Ox 99 09/13/24 08:39 FiO2 Intake & Output 09/12/24 09/13/24 09/13/24 18:59 06:59 18:59 Intake Total 780 1720 Balance 780 1720 Weight 101 kg Intake: Oral 540 1000 Tube Feeding 240 720 Other: Voiding Method Diaper Diaper External Catheter External Catheter # Voids 3 3 # Bowel Movements 3 2 - Constitutional General appearance: Present: average body habitus, no acute distress - EENT Eyes: Present: anicteric sclerae, EOMI ENT: Present: hearing grossly normal - Respiratory Details: breathing is even and unlabored - Cardiovascular Details: skin warm and dry - Integumentary Integumentary: Absent: cyanotic, jaundiced - Musculoskeletal Musculoskeletal: Present: generalized weakness - Psychiatric Psychiatric: Present: A&O x's 3 - Labs CBC & Chem 7: 09/13/24 04:38 09/13/24 04:38 Labs: Abnormal Lab Results - Last 24 Hours (Table) 09/12/24 09/12/24 09/12/24 Range/Units 11:56 17:05 20:22 WBC (4.50-10.00) X 10*3/uL RBC (4.10-5.20) X 10*6/uL Hgb (12.0-15.0) g/dL Hct (37.2-46.3) % MCHC (32.0-37.0) g/dL RDW (11.5-14.5) % Immature Gran # (0.00-0.04) X 10*3/uL Neutrophils # (1.80-7.70) X 10*3/uL Lymphocytes # (0.90-5.00) X 10*3/uL Eosinophils # (0.04-0.35) X 10*3/uL BUN/Creatinine Ratio (12.00-20.00) Ratio Glucose (70-110) mg/dL POC Glucose (mg/dL) 122 H 254 H 290 H (70-110) mg/dL Calcium (8.7-10.3) mg/dL Total Bilirubin (0.3-1.2) mg/dL Total Protein (6.2-8.2) g/dL Albumin (3.8-4.9) g/dL Albumin/Globulin Ratio (1.60-3.17) Ratio 09/13/24 09/13/24 09/13/24 Range/Units 04:38 04:38 07:11 WBC 17.40 H (4.50-10.00) X 10*3/uL RBC 2.45 L (4.10-5.20) X 10*6/uL Hgb 7.1 L (12.0-15.0) g/dL Hct 23.3 L (37.2-46.3) % MCHC 30.5 L (32.0-37.0) g/dL RDW 19.6 H (11.5-14.5) % Immature Gran # 0.16 H (0.00-0.04) X 10*3/uL Neutrophils # 16.38 H (1.80-7.70) X 10*3/uL Lymphocytes # 0.29 L (0.90-5.00) X 10*3/uL Eosinophils # 0 L (0.04-0.35) X 10*3/uL BUN/Creatinine Ratio 26.00 H (12.00-20.00) Ratio Glucose 168 H (70-110) mg/dL POC Glucose (mg/dL) 178 H (70-110) mg/dL Calcium 8.1 L (8.7-10.3) mg/dL Total Bilirubin <0.2 L (0.3-1.2) mg/dL Total Protein 5.0 L (6.2-8.2) g/dL Albumin 2.8 L (3.8-4.9) g/dL Albumin/Globulin Ratio 1.27 L (1.60-3.17) Ratio Assessment and Plan (1) Atrial fibrillation with rapid ventricular response Current Visit: Yes Status: Acute Priority: High Code(s): I48.91 - UNSPECIFIED ATRIAL FIBRILLATION SNOMED Code(s): 640973032091989 (2) Dysphagia Current Visit: Yes Status: Acute Priority: High Code(s): R13.10 - DYSPHAGIA, UNSPECIFIED SNOMED Code(s): 50631044 (3) Squamous cell carcinoma lung Current Visit: Yes Status: Acute Priority: High Code(s): C34.90 - MALIGNANT NEOPLASM OF UNSP PART OF UNSP BRONCHUS OR LUNG SNOMED Code(s): 736102666 Plan: N/V, dysphagia, poor oral intake -Chest x-ray on admit showed development of right lung linear atelectasis. Known mediastinal mass. COPD changes. -Medications for symptoms ordered, pt doing much better. Odynophagia less. No aspiration noted on swallow eval -PEG tube placed, tolerating tube feeds at this time. Tolerating small amounts of solid food, appetite improving -[place] that pt symptoms are 2/2 rebound inflammation of mass abutting esophagus interfering with motility. A fib with RVR -Rate controlled per notes -Cardiology following Squamous cell carcinoma of lung -Oncology history as stated in consult -During last admit, pt was started on radiation and received cycle 1 of carbo/taxol. Since discharge pt has continued on RT, and completed cycle 2 of carbo/taxol on 08/24. Cycle 3 held due to progressing weakness and n/v. -Continues with XRT -Did get Oncology care transferred locally. Appt in DC plan. -Pt has missed 2 treatments due to prolonged admission. S/p cycle 3 weekly carbo/taxol inpt on 09/12. Tolerated well -Hgb 7.1, plt 225, wbc 17.4 -Will recheck CBC in the AM. If labs stable and no acute events overnight, pt is cleared from hem/onc standpoint for discharge, once cleared by admitting team and other consulted medical specialities -[place] and compazine Erx sent from clinic
[2024-09-13 17:56] LABS: Glucose,Whole Blood 242 mg/dL (70-110)
[2024-09-13 20:25] LABS: Glucose,Whole Blood 179 mg/dL (70-110)
[2024-09-13] MEDS: INSULIN GLARGINE (LANTUS) 100 UNIT/ML SYR SQ SCH (20:41)
[2024-09-14 07:33] LABS: Glucose,Whole Blood 138 mg/dL (70-110)
[2024-09-14 10:24] VITALS: RESP 17; TEMP 97.7
[2024-09-14 10:25] VITALS: BP 110/49
[2024-09-14 10:33] LABS: Basophils # (A) 0.02 X 10*3/uL (0.00-0.10); Basophils % (A) 0.1 %; Eosinophils # (A) 0.02 X 10*3/uL (0.04-0.35); Eosinophils % (A) 0.1 %; HCT 26.4 % (37.2-46.3); HGB 7.9 g/dL (12.0-15.0); Lymphocytes # (A) 0.84 X 10*3/uL (0.90-5.00); Lymphocytes % (A) 4.7 %; MCH 29.2 pg (27.0-32.0); MCHC 29.9 g/dL (32.0-37.0); MCV 97.4 FL (80.0-97.0); Mean Platelet Volume 11.7 FL (9.5-12.2); Monocytes # (A) 0.85 X 10*3/uL (0.20-1.00); Monocytes % (A) 4.7 %; NRBC Per 100 WBC 0 X 10*3/uL (0.00-0.01); Neutrophils # (A) 16.17 X 10*3/uL (1.80-7.70); Neutrophils % (A) 89.6 %; Platelet Count 260 X 10*3/uL (140-440); RBC 2.71 X 10*6/uL (4.10-5.20); RDW 19.6 % (11.5-14.5); WBC 18.05 X 10*3/uL (4.50-10.00)
[2024-09-14 12:22] LABS: Glucose,Whole Blood 103 mg/dL (70-110)
[2024-09-14 13:09] VITALS: PULSE 72
[2024-09-14 13:42] VITALS: BMI 27.3
--- NOTE | 2024-09-14 14:07 | P.DS ---
Providers Date of admission: 08/31/24 18:03 Attending physician: Alex Llamas Consults: 08/31/24 17:59 Consult Physician Urgent Consulting Provider: Zulma Wooten Consult Reason/Comments: Esophageal cancer Do you want consulting provider notified?: Yes 09/01/24 14:18 Consult Physician Routine Consulting Provider: William Jenkins Consult Reason/Comments: known to service, met lung cancer Do you want consulting provider notified?: Already Contacted 09/02/24 01:30 Consult Physician Urgent Consulting Provider: Ugo Anguiano Consult Reason/Comments: COPD, Hypoxic failure Do you want consulting provider notified?: Yes 09/02/24 03:10 Consult Physician Routine Consulting Provider: Cuco Ratliff Consult Reason/Comments: Depression, H/O Esophageal cancer Do you want consulting provider notified?: Yes, Notify in am Primary care physician: [facility] Course: Discharge Diagnosis: New onset A-fib with RVR Acute on chronic hypoxic respiratory failure secondary to COPD exacerbation, left lower lobe community-acquired pneumonia Steroid-induced hyperglycemia Steroid-induced leukocytosis Stage III NSCLC Intractable nausea secondary to above, resolved Dysphagia secondary to above status post PEG tube 09/02/2024 Hypoproteinemia, hypoalbuminemia secondary to above Hypokalemia, resolved Hospital Course: 63-year-old female with past medical history of mediastinal squamous cell carcinoma stage III a following with Dr. Wooten in [facility] and Dr. Robledo in [place], chronic hypoxic respiratory failure secondary to COPD on 2 L of nasal cannula, who presented to the ED after she was encouraged to come here by her oncologist.She was supposed to receive her third round of chemo today however she has been very weak and was advised to come here and potentially get a PEG tube placed. She has been having increased difficulty swallowing and now is barely able to swallow liquids. She has also increased her oxygen requirements over the last week. She used to be on 2 L but for the last week has been requiring 3 L. She has been "coughing up bile" with an episode of hemoptysis about a week or two ago post radiation. The hemoptysis has resolved. Patient denying recent fever, abdominal pain, chest pain. She reports chills, severe fatigue, cough productive of a green-omar sputum (reported as "bile"), chest pressure, severe nausea, one episode of vomiting yesterday, dyspnea. Patient reports that IV Compazine is only thing that helps with her nausea. After the patient's left the room, the patient expressed a desire to be on hospice and to be a DNR/DNI stating that she wanted to fight at first but no longer has the energy to. patient was tachycardia, EKG showed A-fib with RVR, she was given Cardizem, started on IV heparin, cardiology consulted. Recommended to continue Cardizem, TTE ordered.EF 55%, trace pericardial effusion, mild mitral regurg, no obvious intracardiac mass or external compression of cardiac structures Hospice consult was placed, patient found that she would feel comfortably proceeding with hospice care although her family at bedside was highly encouraging to continue the treatment. Heme-onc consulted, general surgery consulted for PEG, cardiology consulted for new onset A-fib. Patient was seen by surgical team in the morning, declined any procedures done, later requested to be reevaluated per family request. PEG tube was placed on 09/02, no RD available over the weekend, patient was started on Jevity 1.5 at 10 cc/h 09/01 in the evening patient developed worsening SOB, chest x-ray was done and showed left lower lobe pneumonia or atelectasis, patient was started on cefepime and vancomycin, was given IV Lasix with symptoms improvement. Pulmonology consulted, patient continued on antibiotics, added Solu-Medrol, breathing treatment continued. 09/03: A-fib RVR, heart rate in 130s, BP soft with MAP of 68, now on high flow nasal cannula 9 L. Chest x-ray repeated, improved aeration of the left lung base with focal plateau right midlung contact this is in the right upper medial airspace opacities. 09/04: A-fib rate controlled, feels better, 8 Lnasal cannula. Cardiology following: Metoprolol tartrate 50 twice daily, continue Eliquis 5 twice daily, add oral amiodarone 400 mg twice a day, Lasix 20 daily oral. Viral panel negative. Started trickle feedings 09/05:Shortness of breath improved, now on 6 L nasal cannula converted to sinus rhythm, heart rate controlled . 09/06: Heart rate controlled, sinus, on 3 L, feeling better, pending clearance from cardiology and pulmonology for radiation therapy 09/07: S/p radiation therapy 09/06, heart rate is controlled, feeling more short of breath, tries to be more active, now sitting up in the chair, tolerating tube feeds, afebrile. Leukocytosis is worsening, could be steroid-induced versus after radiation reactive; on day 5 of broad-spectrum antibiotics, finish 7 days of antibiotics given her immunocompromise state. 09/12 chemotherapy resumed, patient tolerated fairly well. 09/14 patient has been discharged with follow-up with PCP, oncology, cardiology Patient seen and examined at bedside Vital signs reviewed and stable. General: [nontoxic], [no distress], [appears at stated age] Derm: [warm], [dry] Head: [atraumatic], [normocephalic], [symmetric] Eyes: [EOMI], [no lid lag], [anicteric sclera] Mouth: [no lip lesion], [mucus membranes moist] Cardiovascular: [S1S2 reg], [no murmur] Lungs: [CTA bilateral], [no rhonchi, no rales] , [no accessory muscle use] Abdominal: [soft], [ nontender to palpation], [no guarding], [no appreciable organomegaly], PEG tube in place Ext: [no gross muscle atrophy], [no edema], [no contractures] Neuro: [ CN II-XI grossly intact], [no focal neuro deficits] Psych: [Alert], [oriented], [appropriate affect] A total of 40 minutes of time were spent preparing this complex discharge summary. Patient was discharged on 09/14/24. Plan - Discharge Summary Discharge Rx Participant: No New Discharge Prescriptions: New Apixaban [Eliquis] 5 mg PO BID #120 tab Furosemide [Lasix] 20 mg PO DAILY #60 tab Metoprolol Tartrate [Lopressor] 50 mg PO BID #60 tab Amiodarone [Cordarone] 200 mg PO BID #60 tab Nystatin 100,000 Unit/ml Susp [Mycostatin Oral Susp] 5 ml PO QID #150 ml Continue Omeprazole 20 mg PO DAILY Amitriptyline HCl 25 mg PO HS Albuterol Inhaler [Ventolin Hfa Inhaler] 2 puff INHALATION RT-Q4H PRN PRN Reason: Shortness Of Breath Umeclidinium Brm/Vilanterol Tr [Anoro Ellipta 62.5-25 Mcg INH] 1 puff INHALATION RT-DAILY Ipratropium-Albuterol Nebulize [Duoneb 0.5 mg-3 mg/3 ml Soln] 3 ml INHALATION RT-QID PRN PRN Reason: Shortness Of Breath predniSONE 50 mg PO DAILY #10 tab Prochlorperazine [Compazine] 10 mg PO Q6H PRN PRN Reason: Nausea ondansetron HCL [Zofran] 8 mg PO Q8HR PRN PRN Reason: Nausea traMADol HCL 50 mg PO TID PRN PRN Reason: Pain Cetirizine HCl 10 mg PO HS L.acidoph,Paracasei, B.lactis [Probiotic] 1 cap PO HS Benzonatate [Tessalon Perle] 200 mg PO TID PRN PRN Reason: Cough oxyCODONE-APAP 5-325MG [Percocet 5-325 mg] 1 tab PO Q6HR PRN PRN Reason: Pain Ondansetron Odt [Zofran ODT] 8 mg PO Q8HR PRN PRN Reason: Nausea And Vomiting ALPRAZolam [Xanax] 0.5 mg PO BID PRN PRN Reason: Anxiety Discharge Medication List Albuterol Inhaler [Ventolin Hfa Inhaler] 2 puff INHALATION RT-Q4H PRN 02/04/24 [History] Amitriptyline HCl 25 mg PO HS 02/04/24 [History] Cetirizine HCl 10 mg PO HS 02/04/24 [History] Omeprazole 20 mg PO DAILY 02/04/24 [History] traMADol HCL 50 mg PO TID PRN 02/04/24 [History] Ipratropium-Albuterol Nebulize [Duoneb 0.5 mg-3 mg/3 ml Soln] 3 ml INHALATION RT-QID PRN 07/13/24 [History] L.acidoph,Paracasei, B.lactis [Probiotic] 1 cap PO HS 07/13/24 [History] Umeclidinium Brm/Vilanterol Tr [Anoro Ellipta 62.5-25 Mcg INH] 1 puff INHALATION RT-DAILY 07/13/24 [History] predniSONE 50 mg PO DAILY #10 tab 07/15/24 [Rx] Benzonatate [Tessalon Perle] 200 mg PO TID PRN 08/15/24 [History] Prochlorperazine [Compazine] 10 mg PO Q6H PRN 08/15/24 [History] ondansetron HCL [Zofran] 8 mg PO Q8HR PRN 08/15/24 [History] ALPRAZolam [Xanax] 0.5 mg PO BID PRN 08/31/24 [History] Ondansetron Odt [Zofran ODT] 8 mg PO Q8HR PRN 08/31/24 [History] oxyCODONE-APAP 5-325MG [Percocet 5-325 mg] 1 tab PO Q6HR PRN 08/31/24 [History] Amiodarone [Cordarone] 200 mg PO BID #60 tab 09/14/24 [Rx] Apixaban [Eliquis] 5 mg PO BID #120 tab 09/14/24 [Rx] Furosemide [Lasix] 20 mg PO DAILY #60 tab 09/14/24 [Rx] Metoprolol Tartrate [Lopressor] 50 mg PO BID #60 tab 09/14/24 [Rx] Nystatin 100,000 Unit/ml Susp [Mycostatin Oral Susp] 5 ml PO QID #150 ml [Rx] Follow up Appointment(s)/Referral(s): Wily Russ MD [STAFF PHYSICIAN] - 1 Week Zulma Wooten MD [STAFF PHYSICIAN] - 09/20/24 8:15 am Sosa Galvin MD [Primary Care Provider] - 1-2 days [facility], [REFERRING] - As Needed [facility] Visiting Nurse, [NON-STAFF] - Activity/Diet/Wound Care/Special Instructions: The Palliative Garment Patternmaker: Lolita Edwards [phone] Please, follow-up with your primary care physician, oncology team, cardiology Discharge/Stand Alone Forms: Who Do I Call?, Community Resources, Help In The Home, Personal Rn Staffing Discharge Disposition: HOME SELF-CARE
--- NOTE | 2024-09-14 15:32 | P.PN ---
Subjective Progress Note Date: 09/14/24 Pt reporting feeling improved. Ambulation and strength improving. Has been able to tolerate small amount of solid foods. Continues tube feedings. Reports pain being well controlled on norco. Inpt chemo completed on 09/12. Counts stable, plan for d/c today Objective - Vital Signs Vital signs: Vital Signs Temp 97.7 F 09/14/24 07:30 Pulse 72 09/14/24 09:48 Resp 17 09/14/24 07:30 BP 110/49 09/14/24 07:30 Pulse Ox 100 09/14/24 07:30 FiO2 Intake & Output 09/13/24 09/14/24 09/14/24 18:59 06:59 18:59 Intake Total 120 1140 Balance 120 1140 Weight 79.3 kg Intake: Oral 120 240 Tube Feeding 720 Other 180 Other: Voiding Method Diaper Diaper Diaper External Catheter External Catheter External Catheter # Voids 4 3 # Bowel Movements 3 - Constitutional General appearance: Present: average body habitus, no acute distress - EENT Eyes: Present: anicteric sclerae, EOMI ENT: Present: hearing grossly normal - Respiratory Details: breathing is even and unlabored - Cardiovascular Details: skin warm and dry - Gastrointestinal General gastrointestinal: Present: soft. Absent: tenderness - Integumentary Integumentary: Absent: cyanotic, jaundiced - Psychiatric Psychiatric: Present: A&O x's 3 - Labs CBC & Chem 7: 09/14/24 06:46 09/13/24 04:38 Labs: Abnormal Lab Results - Last 24 Hours (Table) 09/13/24 09/13/24 09/13/24 Range/Units 12:23 17:55 20:21 WBC (4.50-10.00) X 10*3/uL RBC (4.10-5.20) X 10*6/uL Hgb (12.0-15.0) g/dL Hct (37.2-46.3) % MCV (80.0-97.0) FL MCHC (32.0-37.0) g/dL RDW (11.5-14.5) % Immature Gran # (0.00-0.04) X 10*3/uL Neutrophils # (1.80-7.70) X 10*3/uL Lymphocytes # (0.90-5.00) X 10*3/uL Eosinophils # (0.04-0.35) X 10*3/uL POC Glucose (mg/dL) 177 H 242 H 179 H (70-110) mg/dL 09/14/24 09/14/24 Range/Units 06:46 07:31 WBC 18.05 H (4.50-10.00) X 10*3/uL RBC 2.71 L (4.10-5.20) X 10*6/uL Hgb 7.9 L (12.0-15.0) g/dL Hct 26.4 L (37.2-46.3) % MCV 97.4 H (80.0-97.0) FL MCHC 29.9 L (32.0-37.0) g/dL RDW 19.6 H (11.5-14.5) % Immature Gran # 0.15 H (0.00-0.04) X 10*3/uL Neutrophils # 16.17 H (1.80-7.70) X 10*3/uL Lymphocytes # 0.84 L (0.90-5.00) X 10*3/uL Eosinophils # 0.02 L (0.04-0.35) X 10*3/uL POC Glucose (mg/dL) 138 H (70-110) mg/dL Assessment and Plan (1) Atrial fibrillation with rapid ventricular response Status: Acute Priority: High Code(s): I48.91 - UNSPECIFIED ATRIAL FIBRILLATION SNOMED Code(s): 362459049097378 (2) Dysphagia Status: Acute Priority: High Code(s): R13.10 - DYSPHAGIA, UNSPECIFIED SNOMED Code(s): 31465113 (3) Squamous cell carcinoma lung Status: Acute Priority: High Code(s): C34.90 - MALIGNANT NEOPLASM OF UNSP PART OF UNSP BRONCHUS OR LUNG SNOMED Code(s): 104382372 Plan: N/V, dysphagia, poor oral intake -Chest x-ray on admit showed development of right lung linear atelectasis. Known mediastinal mass. COPD changes. -Medications for symptoms ordered, pt doing much better. Odynophagia less. No aspiration noted on swallow eval -PEG tube placed, tolerating tube feeds at this time. Tolerating small amounts of solid food, appetite improving -[place] that pt symptoms are 2/2 rebound inflammation of mass abutting esophagus i nterfering with motility. A fib with RVR -Rate controlled per notes -Cardiology following Squamous cell carcinoma of lung -Oncology history as stated in consult -During last admit, pt was started on radiation and received cycle 1 of carbo/taxol. Since discharge pt has continued on RT, and completed cycle 2 of carbo/taxol on 08/24. Cycle 3 held due to progressing weakness and n/v. -Continues with XRT -Did get Oncology care transferred locally. Appt in DC plan. -Pt has missed 2 treatments due to prolonged admission. S/p cycle 3 weekly carbo/taxol inpt on 09/12. Tolerated well -Counts stable, Hgb 7.9, plt 260, wbc 18.0 -[place] and compazine Erx sent from clinic -Plan for discharge today. F/u in clinic scheduled for 09/20
[2024-09-14] MEDS ORDERED: INSULIN LISPRO (HumaLOG) 100 UNIT/ML 10 mL VL SQ SCH (17:30)
== END 2024-09-14 14:17 | disposition home health service (06) | DRG 308 ==
LOC: EC 13:47 → 3SCARD 18:03 → 5NMEDONC 09-08 14:56
PROVIDERS: ADMIT Student in an Organized Health Care Education/Training Program; ATTEND Student in an Organized Health Care Education/Training Program
PROC: 3E033RZ Introduction of Antiarrhythmic into Peripheral Vein, Percutaneous Approach (ICD-10-PCS; 2024-08-31)
PROC: 0DH63UZ Insertion of Feeding Device into Stomach, Percutaneous Approach (ICD-10-PCS; principal; 2024-09-02 10:30)
PROC: 3E0G76Z Introduction of Nutritional Substance into Upper GI, Via Natural or Artificial Opening (ICD-10-PCS; 2024-09-03)
PROC: 3E04305 Introduction of Other Antineoplastic into Central Vein, Percutaneous Approach (ICD-10-PCS; 2024-09-12)
PROC: DB0 Radiation Therapy, Respiratory System, Beam Radiation (ICD-10-PCS; 2024-09-12)
DX: I48.0 Paroxysmal atrial fibrillation (principal); E43 Unspecified severe protein-calorie malnutrition; J96.21 Acute and chronic respiratory failure with hypoxia; J18.9 Pneumonia, unspecified organism; C78.1 Secondary malignant neoplasm of mediastinum; J44.0 Chronic obstructive pulmonary disease with (acute) lower respiratory infection; R13.10 Dysphagia, unspecified; C34.81 Malignant neoplasm of overlapping sites of right bronchus and lung; L40.50 Arthropathic psoriasis, unspecified; F32.A Depression, unspecified; D64.9 Anemia, unspecified; I34.0 Nonrheumatic mitral (valve) insufficiency; J44.1 Chronic obstructive pulmonary disease with (acute) exacerbation; J98.11 Atelectasis; E77.8 Other disorders of glycoprotein metabolism; R62.7 Adult failure to thrive; D63.8 Anemia in other chronic diseases classified elsewhere; E83.51 Hypocalcemia; E88.09 Other disorders of plasma-protein metabolism, not elsewhere classified; Z99.81 Dependence on supplemental oxygen; R11.2 Nausea with vomiting, unspecified; F43.22 Adjustment disorder with anxiety; F90.9 Attention-deficit hyperactivity disorder, unspecified type; H91.91 Unspecified hearing loss, right ear; E87.6 Hypokalemia; R73.9 Hyperglycemia, unspecified; K21.9 Gastro-esophageal reflux disease without esophagitis; L40.9 Psoriasis, unspecified; R63.30 Feeding difficulties, unspecified; T38.0X5A Adverse effect of glucocorticoids and synthetic analogues, initial encounter; Z79.52 Long term (current) use of systemic steroids; Z79.899 Other long term (current) drug therapy; Z96.641 Presence of right artificial hip joint; Z87.891 Personal history of nicotine dependence; Z88.6 Allergy status to analgesic agent
CPT/HCPCS: 36415; 36600; 43246; 71045; 71046; 77336; 77386; 80048; 80053; 80061; 80202; 82565; 82805; 83605; 83735; 84100; 84145; 84443; 84484; 85025; 85610; 85730; 86850; 86900; 86901; 87636; 93005; 93306; 94640; 94667; 94668; 94760; 96365; 96366; 96367; 96368; 96375; 99291

== ENCOUNTER → 2024-10-25 | Outpatient (CLI) | payer MEDICARE ==
[2024-10-25 11:40] LABS: African American GFR (CKD) >90 (>60 ml/min/1.73 sqM); Blood Urea Nitrogen 26 mg/dL (7-17); Non-African American GFR(CKD) >90 (>60 ml/min/1.73 sqM)
--- NOTE | 2024-10-25 14:18 | CT ---
EXAMINATION TYPE: CT ChestAbdPelvis w con DATE OF EXAM: 10/25/2024 COMPARISON: Prior PET/CT July 28, 2024 CLINICAL INDICATION: Female, 64 years old with history of C38.3 MALIGNANT NEOPLASM OF MEDIASTINUM, PA RT UNSP, Malignant neoplasm of mediastinum, TECHNIQUE: CT scan of the thorax, abdomen and pelvis is performed with IV Contrast, patient injected with 100 ml mL of Isovue 300. CT DLP: 1744 mGycm. Automated Exposure Control for Dose Reduction was Utilized. FINDINGS: LUNGS: Mild to moderate underlying emphysematous change is redemonstrated. Persistent areas of ground glass opacity in the medial aspect right upper lobe. With some additional areas of opacity and slight nodularity in the posterior right upper lobe are redemonstrated measuring up to 7 mm axial image 20. Left lung remains clear HEART: Size within normal limits. No significant coronary artery calcifications. MEDIASTINUM: Marked improvement in large mediastinal mass with new central lucency. There is persiste nt soft tissue density extending to the anterior carinal region. This is difficult to accurately edwin ure. There is some extension to the right hilar region axial image 29 is redemonstrated. There is new 1.9 cm round low density lesion in the left hilar region axial image 27. This however was present on CTA chest August 20, 2024. OTHER: New right internal jugular Mediport catheter terminating in right atrium. LIVER/GB: Cholecystectomy clips are redemonstrated. PANCREAS: No significant abnormality is seen. SPLEEN: No significant abnormality is seen. ADRENALS: No significant abnormality is seen. KIDNEYS: No significant abnormality is seen. BOWEL: New PEG tube. Mild to moderate wall thickening in the left and sigmoid colon. No abnormal smal l or large bowel dilatation. A few distal colonic diverticula in the sigmoid colon. No acute divertic ulitis. GENITAL ORGANS: No gross abnormality seen. LYMPH NODES: No greater than 1cm abdominal or pelvic lymph nodes are appreciated. OSSEOUS STRUCTURES: Surgical change right hip is redemonstrated. Anterior scar tissue again seen. Jossy dging osteophytes in the mid to lower thoracic spine are redemonstrated. OTHER: There is new 1.3 cm round low density lesion in the medial right groin on axial image 116. Mil [id number] peripheral calcified plaque of the aorta extends into branch vessels. IMPRESSION: 1. Marked positive treatment response to the large mediastinal mass with residual abnormal soft tissu e present. Round 1.9 cm area in the left hilum could reflect focal necrosis is similar in size to mos t recent chest CT August 20. There is new round 1.3 cm low dense focus in the medial right groin cou ld reflect small hematoma. Metastatic neoplasm felt much less likely but not entirely excluded. Patie nt may benefit with repeat PET/CT. 2. Possible mild new distal uncomplicated acute colitis. Correlate clinically. [facility], , 10/25/2024 2:16 PM
== END | disposition home or self-care (01) ==
LOC: RADCTMAIN 10:22
PROVIDERS: ATTEND Internal Medicine
DX: C38.3 Malignant neoplasm of mediastinum, part unspecified (principal); J44.9 Chronic obstructive pulmonary disease, unspecified; L40.50 Arthropathic psoriasis, unspecified; L44.8 Other specified papulosquamous disorders; R22.2 Localized swelling, mass and lump, trunk
CPT/HCPCS: 82565; 84520; 71260; 74177; 36415; Q9967

== ENCOUNTER 2024-11-03 19:07 | Inpatient (IN) | payer MEDICARE ==
--- NOTE | 2024-11-03 19:50 | ED ---
General Adult HPI - General Chief complaint: Shortness of Breath Stated complaint: R Rib Pain-Post Chemo Time Seen by Provider: 11/03/24 19:21 Source: patient Mode of arrival: ambulatory Limitations: no limitations - History of Present Illness Initial comments: This patient is a 64-year-old woman who presents with days of right sided chest wall/abdominal wall pain. She indicates the area at the right costal margin at the anterior axillary line. Patient states that it is worse anytime she tenses the abdominal muscles or if she reaches to her right side. She states that she has tried calling her primary physician and her oncologist. They did prescribe OxyContin which she states is not really helping the pain very much. She has not noted other symptoms, no fever or chills. No hemoptysis, no dyspnea. No leg pain or swelling. The patient does take Eliquis for atrial fibrillation. The patient has history of non-small cell lung cancer. She states that there has been a mass in the mediastinum adjacent to the esophagus and she has not bee n able to eat or drink much. She did have PEG tube placed in August. -: days(s) Location: chest, abdomen Radiation: non-radiation Quality: aching, sharp Consistency: constant Improves with: none Worsens with: movement Associated Symptoms: shortness of breath Treatments Prior to Arrival: none - Related Data Home Medications Medication Instructions Recorded Confirmed Albuterol Inhaler [Ventolin Hfa 2 puff INHALATION RT-Q4H PRN 02/04/24 11/04/24 Inhaler] Amitriptyline HCl 25 mg PO HS 02/04/24 11/04/24 Cetirizine HCl 10 mg PO DAILY 02/04/24 11/04/24 Prochlorperazine [Compazine] 10 mg PO Q6H PRN 08/15/24 11/04/24 oxyCODONE-APAP 5-325MG [Percocet 1 tab PO QID PRN 08/31/24 11/04/24 5-325 mg] Midodrine [ProAmatine] 5 mg PO BID PRN 11/04/24 11/04/24 Pantoprazole [Protonix] 40 mg PO BID 11/04/24 11/04/24 Durvalumab [Imfinzi] 1,500 mg IV Q28D 11/06/24 11/06/24 Previous Rx's Medication Instructions Recorded Dabigatran [Pradaxa] 150 mg PO BID #90 capsule 11/09/24 Lidocaine 4% Patch 1 patch TOPICAL DAILY #14 patch 11/09/24 Metoprolol Tartrate [Lopressor] 25 mg PO BID #90 tab 11/09/24 Naloxone HCl [Narcan] 4 mg NASAL ONCE #1 each 11/09/24 fentaNYL 50MCG/HR PATCH [Duragesic 1 patch TRANSDERM Q72H #5 patch 11/09/24 50MCG/HR] Allergies Allergy/AdvReac Type Severity Reaction Status Date / Time lactose Allergy Unknown Verified 11/18/24 17:47 mold Allergy Unknown Verified 11/18/24 17:47 nickel Allergy Rash/Hives Verified 11/18/24 17:47 NSAIDS (Non-Steroidal AdvReac ACID REFLUX Verified 11/18/24 17:47 Anti-Inflamma dust Allergy Unknown Uncoded 11/18/24 17:47 Review of Systems ROS Statement: Those systems with pertinent positive or pertinent negative responses have been documented in the HPI. ROS Other: All systems not noted in ROS Statement are negative. Past Medical History Past Medical History: Cancer, COPD, GERD/Reflux, Hearing Disorder / Deafness, Pneumonia, Skin Disorder Additional Past Medical History / Comment(s): psoriatic arthritis, right ear deaf, psoriasis hands feet. squmaous cell chest History of Any Multi-Drug Resistant Organisms: None Reported Past Surgical History: Back Surgery, Breast Surgery, Cholecystectomy, Joint Replacement, Orthopedic Surgery, Tubal Ligation Additional Past Surgical History / Comment(s): R hip replacement January 2024. 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, arthroscopy bilateral knees, left foot bone spur, ablation to back , injections to back, breast bx left, titanium tag, egd ,colonoscopy Past Anesthesia/Blood Transfusion Reactions: No Reported Reaction Additional Past Anesthesia/Blood Transfusion Reaction / Comment(s): no blood transfusion Past Psychological History: ADD/ADHD, Anxiety Smoking Status: Former smoker Past Alcohol Use History: Occasional Past Drug Use History: None Reported General Exam Limitations: no limitations General appearance: alert, in distress Head exam: Present: atraumatic, normocephalic Eye exam: Present: normal appearance. Absent: scleral icterus, conjunctival injection ENT exam: Present: normal oropharynx Neck exam: Present: normal inspection, full ROM Respiratory exam: Present: respiratory distress. Absent: wheezes, rales, rhonchi, stridor, chest wall tenderness, accessory muscle use, decreased breath sounds, prolonged expiratory Cardiovascular Exam: Present: normal rhythm, tachycardia, normal heart sounds. Absent: systolic murmur, diastolic murmur, rubs, gallop GI/Abdominal exam: Present: soft. Absent: distended, tenderness, guarding, rebound, rigid, mass Extremities exam: Present: normal inspection, normal capillary refill. Absent: pedal edema, calf tenderness Back exam: Present: normal inspection. Absent: CVA tenderness (R), CVA tenderness (L) Neurological exam: Present: alert Skin exam: Present: warm, dry, intact, normal color. Absent: rash Course Vital Signs 11/03/24 11/03/24 11/03/24 19:09 20:35 21:21 Temperature 98.8 F Pulse Rate 112 H 120 H 109 H Respiratory 24 18 20 Rate Blood Pressure 107/53 104/58 97/64 O2 Sat by Pulse 96 95 93 L Oximetry 11/03/24 11/03/24 21:57 22:59 Temperature Pulse Rate 109 H 109 H Respiratory 18 18 Rate Blood Pressure 107/53 106/65 O2 Sat by Pulse 96 Oximetry EKG Findings - EKG Results: EKG: interpreted by ERMD, sinus rhythm, normal axis, normal QRS EKG shows: tachycardia (Rate 113 bpm) - Blocks, Delta, Hypertrophy, ST Abn: Repolarization changes or abnormalities: nonspecific abnormality, ST segment, and/or T wave Medical Decision Making - Medical Decision Making The patient had chest x-ray that I interpreted as negative for acute infiltrate, pneumothorax, congestive heart failure The patient had CT angiogram that I interpreted as positive for right lung pulmonary embolism. No pneumothorax or congestive heart failure Was pt. sent in by a medical professional or institution (, PA, FILING AND POLISHING SUPERVISOR, urgent care, hospital, or half-way...) When possible be specific @ -[No] Did you speak to anyone other than the patient for history (EMS, parent, family, police, friend...)? What history was obtained from this source @ -[No] Did you review nursing and triage notes (agree or disagree)? Why? @ -[I reviewed and agree with nursing and triage notes] Were old charts reviewed (outside hosp., previous admission, EMS record, old EKG, old radiological studies, urgent care reports/EKG's, half-way records)? Report findings @ -[No old charts were reviewed] Differential Diagnosis (chest pain, altered mental status, abdominal pain women, abdominal pain men, vaginal bleeding, weakness, fever, dyspnea, syncope, headach e, dizziness, GI bleed, back pain, seizure, CVA, palpatations, mental health, musculoskeletal)? @ -[Differential Chest Pain: Stable Angina, Unstable Angina, STEMI, NSTEMI Aortic Dissection, Pneumothorax, Musculoskeletal, Esophageal Spasm GERD, Cholecystitis, Pancreatitis, Zoster, this is not meant to be an all-inclusive list. EKG interpreted by me (3pts min.). @ -[I interpreted as above] X-rays interpreted by me (1pt min.). @ -[I interpreted as above CT interpreted by me (1pt min.). @ -[I interpreted as above U/S interpreted by me (1pt. min.). @ -[None done] What testing was considered but not performed or refused? (CT, X-rays, U/S, labs)? Why? @ -[None] What meds were considered but not given or refused? Why? @ -[None] Did you discuss the management of the patient with other professionals (professionals i.e. , PA, FILING AND POLISHING SUPERVISOR, lab, RT, psych nurse, social media campaign manager, editorial clerk, teacher, financial administration officer, case folder)? Give summary @ -Case discussed with admitting physician and the treatment recommendations are incorporated Was smoking cessation discussed for >3mins.? @ -[No] Was critical care preformed (if so, how long)? @ -[Yes, 35 minutes Were there social determinants of health that impacted care today? How? (Homelessness, low income, unemployed, alcoholism, drug addiction, tr ansportation, low edu. Level, literacy, decrease access to med. care, long term, rehab)? @ -[No] Was there de-escalation of care discussed even if they declined (Discuss DNR or withdrawal of care, Hospice)? DNR status @ -[No] What co-morbidities impacted this encounter? (DM, HTN, Smoking, COPD, CAD, Ca ncer, CVA, ARF, Chemo, Hep., AIDS, mental health diagnosis, sleep apnea, morbid obesity)? @ -[Cancer Was patient admitted / discharged? Hospital course, mention meds given and route, prescriptions, significant lab abnormalities, going to OR and other pertinent info. @ -[Patient is 64-year-old woman here with chest pain and found to have acute pulmonary embolism. The patient started on heparin and will be admitted for further treatment Undiagnosed new problem with uncertain prognosis? @ -[No] Drug Therapy requiring intensive monitoring for toxicity (Heparin, Nitro, Insulin, Cardizem)? @ -[IV heparin Were any procedures done? @ -[No] Diagnosis/symptom? @ -[Acute chest pain Acute pulmonary embolism Anemia Acute, or Chronic, or Acute on Chronic? @ -[Acute Uncomplicated (without systemic symptoms) or Complicated (systemic symptoms)? @ -[Uncomplicated Side effects of treatment? @ -[No] Exacerbation, Progression, or Severe Exacerbation? @ -[No] Poses a threat to life or bodily function? How? (Chest pain, [place], [place], pneumonia, PE, COPD, DKA, ARF, appy, cholecystitis, CVA, Diverticulitis, Homicidal, Suicidal, threat to staff... and all critical care pts) @ -[Yes risk of worsening lung and cardiac function All treatments are based on ideal body weight as in ED triage - Lab Data Result diagrams: 11/09/24 05:34 11/09/24 05:34 Lab Results 11/03/24 11/03/24 11/03/24 Range/Units 20:15 20:15 20:15 WBC 8.09 (4.50-10.00) 10*3/uL RBC 2.48 L (4.10-5.20) 10*6/uL Hgb 8.0 L (12.0-15.0) g/dL Hct 24.4 L (37.2-46.3) % MCV 98.4 H (80.0-97.0) fL MCH 32.3 H (27.0-32.0) pg MCHC 32.8 (32.0-37.0) g/dL Plt Count 83 L (140-440) 10*3/uL MPV 10.2 (9.5-12.2) fL Immature Gran % (Auto) 0.5 % Neutrophils % 86.8 % Lymphocytes % 6.6 % Monocytes % 3.7 % Eosinophils % 2.2 % Basophils % 0.2 % Immature Gran # 0.04 (0.00-0.04) 10*3/uL Neutrophils # 7.02 (1.80-7.70) 10*3/uL Lymphocytes # 0.53 L (0.90-5.00) 10*3/uL Monocytes # 0.30 (0.20-1.00) 10*3/uL Eosinophils # 0.18 (0.04-0.35) 10*3/uL Basophils # 0.02 (0.00-0.10) 10*3/uL Sodium 133 L (137-145) mmol/L Potassium 4.7 (3.5-5.1) mmol/L Chloride 97 L (98-107) mmol/L Carbon Dioxide 28 (22-30) mmol/L Anion Gap 8 mmol/L BUN 25 H (7-17) mg/dL Creatinine 0.65 (0.52-1.04) mg/dL Est GFR (CKD-EPI)AfAm >90 (>60 ml/min/1.73 sqM) Est GFR (CKD-EPI)NonAf >90 (>60 ml/min/1.73 sqM) Glucose 155 H (74-99) mg/dL Calcium 9.4 (8.4-10.2) mg/dL Magnesium 2.0 (1.6-2.3) mg/dL Total Bilirubin 0.4 (0.2-1.3) mg/dL AST 20 (14-36) U/L ALT 25 (4-34) U/L Alkaline Phosphatase 118 (38-126) U/L Troponin I <0.012 (0.000-0.034) ng/mL Total Protein 6.1 L (6.3-8.2) g/dL Albumin 3.4 L (3.5-5.0) g/dL Disposition Clinical Impression: Acute pulmonary embolism, Anemia Disposition: ADMITTED IP TO THIS HOSP Condition: Fair Is patient prescribed a controlled substance at d/c from ED?: No
[2024-11-03] MEDS: HYDROmorphone 1 MG/ML 1 ML SYRINGE IVP STA ×3 (20:11→22:01)
[2024-11-03] MEDS: SODIUM CHLORIDE 0.9% 500 ML 500 ML IV STA (20:22)
[2024-11-03 20:33] LABS: Basophils # (A) 0.02 10*3/uL (0.00-0.10); Basophils % (A) 0.2 %; Eosinophils # (A) 0.18 10*3/uL (0.04-0.35); Eosinophils % (A) 2.2 %; HCT 24.4 % (37.2-46.3); Lymphocytes # (A) 0.53 10*3/uL (0.90-5.00); Lymphocytes % (A) 6.6 %; MCH 32.3 pg (27.0-32.0); MCHC 32.8 g/dL (32.0-37.0); MCV 98.4 fL (80.0-97.0); Mean Platelet Volume 10.2 fL (9.5-12.2); Monocytes % (A) 3.7 %; Neutrophils # (A) 7.02 10*3/uL (1.80-7.70); Neutrophils % (A) 86.8 %; RBC 2.48 10*6/uL (4.10-5.20); RDW 19.4 % (11.5-14.5); WBC 8.09 10*3/uL (4.50-10.00)
[2024-11-03 20:49] LABS: Platelet Count 83 10*3/uL (140-440)
--- NOTE | 2024-11-03 21:00 | XR ---
EXAMINATION TYPE: XR chest 2V DATE OF EXAM: 11/03/2024 8:34 PM COMPARISON: Chest radiographs from 09/08/2024. CLINICAL INDICATION: Female, 64 years old with history of Chest Pain; TECHNIQUE: XR chest 2V Frontal and lateral views of the chest. FINDINGS: Lungs/Pleura: There is no evidence of pleural effusion, focal consolidation, or pneumothorax. Pulmonary vascularity: Unremarkable. Heart/mediastinum: Cardiomediastinal silhouette is unremarkable. Musculoskeletal: No acute osseous pathology. Other findings: None Lines/Tubes: [id number] projecting over the right hemithorax with distal tip at the cavoatrial junction. IMPRESSION: No acute cardiopulmonary disease/process. [facility], , 11/03/2024 8:58 PM
[2024-11-03 21:03] LABS: ALT 25 U/L (4-34); AST 20 U/L (14-36); African American GFR (CKD) >90 (>60 ml/min/1.73 sqM); Albumin 3.4 g/dL (3.5-5.0); Alkaline Phosphatase 118 U/L (38-126); Anion Gap 8 mmol/L; Blood Urea Nitrogen 25 mg/dL (7-17); Calcium 9.4 mg/dL (8.4-10.2); Carbon Dioxide 28 mmol/L (22-30); Chloride 97 mmol/L (98-107); Glucose 155 mg/dL (74-99); Non-African American GFR(CKD) >90 (>60 ml/min/1.73 sqM); Potassium 4.7 mmol/L (3.5-5.1); Sodium 133 mmol/L (137-145); Total Bilirubin 0.4 mg/dL (0.2-1.3); Total Protein 6.1 g/dL (6.3-8.2)
--- NOTE | 2024-11-03 22:32 | CT ---
EXAMINATION TYPE: CT chest angio for PE DATE OF EXAM: 11/03/2024 9:44 PM COMPARISON: None. CLINICAL INDICATION: Female, 64 years old with history of Right side pleuritic pain, chest pain, TECHNIQUE: Axial CT was performed with sagittal and coronal reformats. 3D reconstruction and/or MIP imaging was also performed on a separate workstation. IV CONTRAST: with IV Contrast, patient injected with 100 ml mL of Isovue 370. (None if empty) CT DLP: 324.3 mGycm, Automated exposure control for dose reduction was used. FINDINGS: PULMONARY ARTERIES: There is pulmonary embolism involving the 82nd order right lower lobe pulmonary a rtery. No additional filling defects are seen. No evidence of large saddle embolism. LUNGS: The lungs are clear and free of infiltrate. No evidence for atelectasis. No pulmonary nodule or mass is detected. No pleural effusion. MEDIASTINUM: Thoracic aorta is of normal caliber,however, evaluation is limited given timing of the contrast bolus. If there is concern for thoracic aortic pathology consider JOSE MARTIN. Correlate clinicall y. No evidence for mediastinal mass. No mediastinal lymph nodes greater than 1cm. HEART: Size within normal limits. No significant coronary artery calcifications. HILAR STRUCTURES: No evidence for mass. No hilar lymph nodes greater than 1 cm. Bilateral hilar xuan opathy. UPPER ABDOMEN: No significant abnormality is seen. IMPRESSION: 1. There is pulmonary embolism involving the 82nd order right lower lobe pulmonary artery. No additi onal filling defects are seen. No evidence of large saddle embolism. [facility], , 11/03/2024 10:29 PM
[2024-11-03] MEDS ORDERED: HYDROmorphone 1 MG/ML 1 ML SYRINGE IVP PRN (22:33)
[2024-11-03] MEDS ORDERED: ACETAMINOPHEN TAB 325 MG TAB PO PRN (22:33)
[2024-11-03] MEDS ORDERED: NALOXONE 0.4 MG/ML 1 ML VIAL IV PRN (22:33)
[2024-11-03] MEDS: HEPARIN SODIUM 1,000 UN/ML (10ML VL) IV ONE (22:45)
[2024-11-03] MEDS: HEPARIN SOD,PORK IN 0.45% NACL 25,000 UNIT in 0.45% NACL 1 250ML.BAG IV SCH (22:46)
[2024-11-03 22:54] LABS: Basophils # (A) 0.01 10*3/uL (0.00-0.10); Basophils % (A) 0.1 %; Eosinophils # (A) 0.18 10*3/uL (0.04-0.35); Eosinophils % (A) 2.2 %; HCT 22.5 % (37.2-46.3); HGB 7.5 g/dL (12.0-15.0); Lymphocytes # (A) 0.61 10*3/uL (0.90-5.00); Lymphocytes % (A) 7.4 %; MCH 32.8 pg (27.0-32.0); MCHC 33.3 g/dL (32.0-37.0); MCV 98.3 fL (80.0-97.0); Mean Platelet Volume 10.5 fL (9.5-12.2); Monocytes # (A) 0.34 10*3/uL (0.20-1.00); Monocytes % (A) 4.2 %; Neutrophils # (A) 6.97 10*3/uL (1.80-7.70); Neutrophils % (A) 85.1 %; RBC 2.29 10*6/uL (4.10-5.20); RDW 19.4 % (11.5-14.5); WBC 8.19 10*3/uL (4.50-10.00)
[2024-11-03] MEDS: SODIUM CHLORIDE 0.9% 1,000 ML IV SCH (23:04)
[2024-11-03 23:09] LABS: Partial Thromboplastin Time 23.3 sec (22.0-30.0); Prothrombin Time 10.8 sec (10.0-12.5)
[2024-11-03 23:24] LABS: Platelet Count 82 10*3/uL (140-440)
--- NOTE | 2024-11-03 23:52 | US ---
EXAMINATION TYPE: US venous doppler duplex LE BI DATE OF EXAM: 11/03/2024 11:38 PM COMPARISON: CT chest abdomen and pelvis 10/25/2024 CLINICAL INDICATION: Female, 64 years old with history of Acute pulmonary embolism; PE. Patient feels palpable area adjacent to CFV area in the right groin. TECHNIQUE: The lower extremity deep venous system is examined utilizing real time linear array sonog emili with graded compression, color doppler sonography, and spectral doppler. SIDE PERFORMED: Bilateral FINDINGS: VESSELS IMAGED: Common Femoral Vein Deep Femoral Vein Greater Saphenous Vein * Femoral Vein Popliteal Vein Small Saphenous Vein * Proximal Calf Veins (* superficial vessels) Right Leg: Complex area seen at palpable area of concern in the right groin, seen while scanning v eins: 2.1 x 2.2 x 2.0 cm. No evidence of DVT. Peroneal veins were obscured. Left Leg: No evidence of DVT. Complex hypoechoic lesion within the right groin. No internal color flow. There is some posterior aco ustic enhancement. IMPRESSION: 1. No visualized deep venous thrombosis of the bilateral lower extremities. The right peroneal veins were obscured. 2. Indeterminate complex hypoechoic 2.2 cm lesion without vascularity within the right groin soft tis sues. Etiologies include seroma versus hematoma with abscess not excluded. Short-term follow-up is re commended. [facility], , 11/03/2024 11:50 PM
[2024-11-04] MEDS ORDERED: ALBUTEROL NEBULIZED 2.5 MG/3 ML INHALATION PRN (01:02)
[2024-11-04] MEDS: HYDROmorphone 2 MG/ML 1 ML SYRINGE IVP PRN (01:16)
[2024-11-04] MEDS: METOPROLOL TARTRATE 25 MG TAB PO SCH (02:18)
[2024-11-04 02:35] LABS: Influenza A Not Detected (Not Detectd); Influenza B Not Detected (Not Detectd); RSV Not Detected (Not Detectd)
[2024-11-04] MEDS: PANTOPRAZOLE 40 MG TABLET PO SCH ×2 (04:28→20:39)
[2024-11-04 05:15] LABS: Basophils # (A) 0.01 10*3/uL (0.00-0.10); Basophils % (A) 0.1 %; Eosinophils # (A) 0.12 10*3/uL (0.04-0.35); Eosinophils % (A) 1.3 %; HCT 23.6 % (37.2-46.3); HGB 7.4 g/dL (12.0-15.0); Lymphocytes # (A) 0.55 10*3/uL (0.90-5.00); Lymphocytes % (A) 6.1 %; MCH 31.8 pg (27.0-32.0); MCHC 31.4 g/dL (32.0-37.0); MCV 101.3 fL (80.0-97.0); Mean Platelet Volume 10.6 fL (9.5-12.2); Monocytes # (A) 0.38 10*3/uL (0.20-1.00); Monocytes % (A) 4.2 %; Neutrophils # (A) 7.88 10*3/uL (1.80-7.70); RBC 2.33 10*6/uL (4.10-5.20); RDW 19.8 % (11.5-14.5); WBC 9.06 10*3/uL (4.50-10.00)
[2024-11-04 05:16] LABS: Platelet Count 84 10*3/uL (140-440)
[2024-11-04 05:26] LABS: African American GFR (CKD) 89 (>60 ml/min/1.73 sqM); Anion Gap 10 mmol/L; Blood Urea Nitrogen 27 mg/dL (7-17); Calcium 9.6 mg/dL (8.4-10.2); Carbon Dioxide 26 mmol/L (22-30); Chloride 97 mmol/L (98-107); Glucose 133 mg/dL (74-99); Non-African American GFR(CKD) 77 (>60 ml/min/1.73 sqM); Potassium 5.1 mmol/L (3.5-5.1); Sodium 133 mmol/L (137-145)
[2024-11-04] MEDS: MORPHINE SULFATE 4 MG/ML SYRINGE IV PRN (05:42)
--- NOTE | 2024-11-04 06:03 | P.HPIM ---
History of Present Illness H&P Date: 11/03/24 Chief Complaint: chest pain Patient is a 64 year old female with past medical history of squamous cell carcinoma of the mediastinum, COPD, atrial fibrillation presented to the ED with right-sided chest wall pain. Patient reports having right-sided chest wall/abdominal wall pain for a week now. The pain radiates to the epigastrium. She has noted worsening of the pain when she tenses the abdominal muscles or if she reaches to her right side. Denies any trauma. First she tried heating pads and Flexeril but that didn't help. Then she tried reaching out to her primary care physician as well as her oncologist. She was prescribed OxyContin, but states that is not helping with the pain. She also complains of shortness of breath all the time and a cough with greyish green sputum production. She reports epistaxis as well. Associated with that she experienced nausea and vomiting. Patient states following up with her doctor who took her off all the inhalers for COPD and the patient is also not using oxygen at home as her oxygen saturation was above 95. She also reports being allergic to NSAIDS as they cause "burning all the way through her back and feeling of food getting stuck her chest". Additionally, patient was recently admitted to the hospital in Aug 2024 for New onset atrial fibrillation. Echocardiogram done at that visit showed EF 55-60%, hyperdynamic LV, No obvious regional wall motion abnormality, mild MR. She is currently on Eliquis for anticoaguation and no rate or rhythm control medications. She denies missing any doses of Eliquis. She had a PET scan done in Jul 2024 that showed intense uptake within the mediastinal mass and some scattered areas of uptake within the thoracic vertebral bodies suspicious for metastasis as well as concern for sternal metastasis inferiorly. She also had a PEG tube placed in August 2024 due to reduced appetite during her hospitalization for new onset atrial fibrillation. She states her manages her feeds through the PEG tube in addition to having one solid meal a day orally. She had a hospice consult at her last visit but she didn't go through with it as she wasn't happy with them. CT of the chest abdomen pelvis with contrast done on October 2024 shows marked positive treatment response to large mediastinal mass with residual abnormal soft tissue present, round 1.9 cm area in the left hilum could reflect focal necrosis that was unchanged from August, new round 1.3 cm low-density focus in the medial right groin could reflect small hematoma, metastatic neoplasm felt much less likely but not entirely excluded as well as possible mild new distal uncomplicated acute colitis. She complains of a lump her groin that she just now noticed was draining. Her oncologist is aware of her thrombocytopenia and they have told her that they will maintain her platelet count above 50. Currently she is off all chemotherapy and radiation, last radiation therapy was in September. She is scheduled to have another PET scan on November 10. Denies fever, chills, palpitations, hematuria, dysuria, hematochezia, melena, headache, slurred speech, numbness, tingling, dizziness, lightheadedness, blurred vision, double vision. ED documentation reviewed. In the ED patient was treated with Dilaudid, heparin drip, 500 mL bolus of normal saline, 0.9 normal saline at 75 mL/h. Vitals on admission T 98.8 F, ID 112 bpm, RR 24, BP 107/53, oxygen saturation 96% on room air EKG independently interpreted as sinus rhythm, rate 113 bpm, QTc 409 ms Chest x-ray shows no acute cardiopulmonary disease/process Chest CTA shows pulmonary embolism involving the second-order right lower lobe pulmonary artery, no additional filling defects, no evidence of large saddle embolism Venous doppler LE shows no evidence of DVT Labs on admission show WBC 8.09, hemoglobin 8.0, platelet count 83, sodium 133, chloride 97, potassium 4.7, BUN 25, creatinine 0.65, calcium 9.4, magnesium 2.0, troponin I <0.012, albumin 3.5, protein 6.1 Patient admitted to internal medicine service Review of systems: Pertinent positives and negatives as discussed in HPI, a complete review of systems was performed and all other systems are negative. Physical examination: Vital signs reviewed General: acute distress, appears at stated age Derm: warm, dry, intact Head: atraumatic, normocephalic, symmetric Cardiovascular: S1 S2 reg, no murmur Lungs: wheezing, no rhonchi, no rales, no accessory muscle use Abdominal: tender to palpation on the right chest and abdominal wall, PEG Tube with healthy looking skin surrounding area of entrance : lump in the right groin with clear discharge Extremities: No cyanosis, clubbing, or pedal edema. Neuro: Alert, Oriented, 4/5 strength in all 4 extremities Psych: anxious Assessment/Plan: Patient is a 64 year old female with past medical history of COPD, GERD, ps oriasis, non-small cell lung cancer, presented to the ED with right-sided chest wall pain. Active: #. Acute pulmonary embolism Likely secondary to hypercoagulability due to history of Squamous cell carcinoma of the mediastinum Chest CTA shows pulmonary embolism involving the second-order right lower lobe pulmonary artery, no additional filling defects, no evidence of large saddle embolism Venous doppler LE shows no evidence of DVT EKG independently interpreted as sinus rhythm, rate 113 bpm, QTc 409 ms Chest x-ray shows no acute cardiopulmonary disease/process Continue Heparin drip Continue Tylenol, Dilaudid, Morphine for pain management Continue telemetry monitoring Oncology consulted #. Thrombocytopenia #. Epistaxis Platelet count 83 Her oncologist is aware and recommended to maintain platelet count above 50 Monitor CBC #. Hypoproteinemia and hypoalbuminemia, likely due to nutritional deficiency due to poor oral intake Patient unable to tolerate oral intake Patient has PEG tube, relies mostly on tube feeding boluses at home. She states she takes 6 8oz Jevity 1.5 cartons/day. 2 per/meal. States she is supposed to be trying to eat one solid meal/day by mouth but cannot tolerate much. Assistant Clinical Director consulted #. Mild hyponatremia, likely due to poor solute intake Na 133 on admission Received 500 ml normal saline bolus in the ED Continue 0.9 normal saline at 75 ml/hr Monitor BMP #. Nausea and vomiting Continue Ondansetron 4 mg IVP Q8HR PRN #. Normocytic anemia Low Hb 8 on admission, repeat Hb 7.5 Transfuse PRBC for hemoglobin less than 7 Monitor CBC #. Paroxysmal Atrial fibrillation with RVR, on anticoagulation, [id number] of 2 Pulse 116 bpm Patient not maintained on any rate or rhythm control medications Start Metoprolol 25 mg PO BID Monitor vital signs paitent on eliquis will hold now on heparin gtt for PE Chronic: #. History of COPD, currently not on home oxygen #. GERD Continue albuterol inhaler, Duonebs, Pantoprazole 40 mg PO daily. # right groin lump CT scan done couple weeks ago showed 1.3 cm possible collection clear drainage now , consider Gen surg consult if getting worse. F: 0.9 normal saline at 75 ml/hr E: Replete Na N: Heart healthy diet A: Ambulatory DVT prophylaxis: Heparin drip GI prophylaxis: Pantoprazole 40 mg PO daily The patient is admitted with an anticipated more than 2 midnight stay for evaluation of chest wall pain CODE STATUS: FULL CODE Discussed with: Patient Anticipated discharge place: Pending clinical course Dictation was produced using nprogress dictation software. please excuse any grammatical, word or spelling errors. Yandel Fried MD PGY-1 IM I have seen and evaluated the patient today. I Discussed the case with the resident and agree with the resident's findings I edited the assessment and plan as necessary as documented in the resident's note. Past Medical History Past Medical History: Cancer, COPD, GERD/Reflux, Hearing Disorder / Deafness, Pneumonia, Skin Disorder Additional Past Medical History / Comment(s): psoriatic arthritis, right ear deaf, psoriasis hands feet. squmaous cell chest History of Any Multi-Drug Resistant Organisms: None Reported Past Surgical History: Back Surgery, Breast Surgery, Cholecystectomy, Joint Replacement, Orthopedic Surgery, Tubal Ligation Additional Past Surgical History / Comment(s): R hip replacement January 2024. 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, arthroscopy bilateral knees, left foot bone spur, ablation to back , injections to back, breast bx left, titanium tag, egd ,colonoscopy Past Anesthesia/Blood Transfusion Reactions: No Reported Reaction Additional Past Anesthesia/Blood Transfusion Reaction / Comment(s): no blood transfusion Past Psychological History: ADD/ADHD, Anxiety Smoking Status: Former smoker Past Alcohol Use History: Occasional Past Drug Use History: None Reported Medications and Allergies Home Medications Medication Instructions Recorded Confirmed Type Albuterol Inhaler [Ventolin Hfa 2 puff INHALATION RT-Q4H PRN 02/04/24 09/19/24 History Inhaler] Amitriptyline HCl 25 mg PO HS 02/04/24 09/19/24 History Cetirizine HCl 10 mg PO HS 02/04/24 09/19/24 History Omeprazole 20 mg PO DAILY 02/04/24 09/19/24 History traMADol HCL 50 mg PO TID PRN 02/04/24 09/19/24 History Ipratropium-Albuterol Nebulize 3 ml INHALATION RT-QID PRN 07/13/24 09/19/24 History [Duoneb 0.5 mg-3 mg/3 ml Soln] L.acidoph,Paracasei, B.lactis 1 cap PO HS 07/13/24 09/19/24 History [Probiotic] Umeclidinium Brm/Vilanterol Tr 1 puff INHALATION RT-DAILY 07/13/24 09/19/24 History [Anoro Ellipta 62.5-25 Mcg INH] predniSONE 50 mg PO DAILY #10 tab 07/15/24 09/19/24 Rx Benzonatate [Tessalon Perle] 200 mg PO TID PRN 08/15/24 09/19/24 History Prochlorperazine [Compazine] 10 mg PO Q6H PRN 08/15/24 09/19/24 History ondansetron HCL [Zofran] 8 mg PO Q8HR PRN 08/15/24 09/19/24 History ALPRAZolam [Xanax] 0.5 mg PO BID PRN 08/31/24 09/19/24 History Ondansetron Odt [Zofran ODT] 8 mg PO Q8HR PRN 08/31/24 09/19/24 History oxyCODONE-APAP 5-325MG [Percocet 1 tab PO Q6HR PRN 08/31/24 09/19/24 History 5-325 mg] Amiodarone [Cordarone] 200 mg PO BID #60 tab 09/14/24 09/19/24 Rx Apixaban [Eliquis] 5 mg PO BID #120 tab 09/14/24 09/19/24 Rx Furosemide [Lasix] 20 mg PO DAILY #60 tab 09/14/24 09/19/24 Rx Metoprolol Tartrate [Lopressor] 50 mg PO BID #60 tab 09/14/24 09/19/24 Rx Nystatin 100,000 Unit/ml Susp 5 ml PO QID #150 ml 09/14/24 09/19/24 Rx [Mycostatin Oral Susp] Allergies Allergy/AdvReac Type Severity Reaction Status Date / Time lactose Allergy Unknown Verified 11/03/24 19:12 mold Allergy Unknown Verified 11/03/24 19:12 nickel Allergy Rash/Hives Verified 11/03/24 19:12 NSAIDS (Non-Steroidal AdvReac ACID REFLUX Verified 11/03/24 19:12 Anti-Inflamma dust Allergy Unknown Uncoded 11/03/24 19:12 Physical Exam Vitals: Vital Signs Temp Pulse Resp BP Pulse Ox 11/03/24 22:59 109 H 18 106/65 96 11/03/24 21:57 109 H 18 107/53 11/03/24 21:21 109 H 20 97/64 93 L 11/03/24 20:35 120 H 18 104/58 95 11/03/24 19:09 98.8 F 112 H 24 107/53 96 Intake and Output 11/03/24 11/03/24 11/04/24 14:59 22:59 06:59 Other: Weight 73.482 kg Results CBC & Chem 7: 11/04/24 04:43 11/04/24 04:43 Labs: Abnormal Lab Results - Last 24 Hours (Table) 11/03/24 11/03/24 11/03/24 Range/Units 20:15 20:15 22:35 RBC 2.48 L 2.29 L (4.10-5.20) 10*6/uL Hgb 8.0 L 7.5 L (12.0-15.0) g/dL Hct 24.4 L 22.5 L (37.2-46.3) % MCV 98.4 H 98.3 H (80.0-97.0) fL MCH 32.3 H 32.8 H (27.0-32.0) pg Plt Count 83 L 82 L (140-440) 10*3/uL Immature Gran # 0.08 H (0.00-0.04) 10*3/uL Lymphocytes # 0.53 L 0.61 L (0.90-5.00) 10*3/uL Sodium 133 L (137-145) mmol/L Chloride 97 L (98-107) mmol/L BUN 25 H (7-17) mg/dL Glucose 155 H (74-99) mg/dL Total Protein 6.1 L (6.3-8.2) g/dL Albumin 3.4 L (3.5-5.0) g/dL
[2024-11-04] MEDS: HEPARIN SODIUM 1,000 UN/ML (10ML VL) IV PRN (07:03)
[2024-11-04] MEDS ORDERED: FAMOTIDINE 20 MG TAB PO SCH (09:00)
[2024-11-04] MEDS ORDERED: oxyCODONE-APAP 7.5-325MG 1 EACH TAB PO PRN (10:29)
[2024-11-04] MEDS ORDERED: NALOXONE 0.4 MG/ML 1 ML VIAL IV PRN (11:28)
[2024-11-04] MEDS: ONDANSETRON 4 MG/2 ML VIAL IVP PRN (11:45)
[2024-11-04] MEDS: HYDROmorphone PCA 10 MG/50 ML BAG IV PRN (12:48)
--- NOTE | 2024-11-04 13:32 | P.PN ---
Subjective Progress Note Date: 11/04/24 64 year old female with past medical history of squamous cell carcinoma of the mediastinum, COPD, atrial fibrillation presented to the ED with right-sided chest wall pain. Patient reports having right-sided chest wall/abdominal wall pain for a week now. The pain radiates to the epigastrium. She has noted worsening of the pain when she tenses the abdominal muscles or if she reaches to her right side. De nies any trauma. First she tried heating pads and Flexeril but that didn't help. Then she tried reaching out to her primary care physician as well as her oncologist. She was prescribed OxyContin, but states that is not helping with the pain. She also complains of shortness of breath all the time and a cough with greyish green sputum production. She reports epistaxis as well. Associated with that she experienced nausea and vomiting. Patient states following up with her doctor who took her off all the inhalers for COPD and the patient is also not using oxygen at home as her oxygen saturation was above 95. She also reports being allergic to NSAIDS as they cause "burning all the way through her back and feeling of food getting stuck her chest". Additionally, patient was recently admitted to the hospital in Aug 2024 for New onset atrial fibrillation. Echocardiogram done at that visit showed EF 55-60%, hyperdynamic LV, No obvious regional wall motion abnormality, mild MR. She is currently on Eliquis for anticoaguation and no rate or rhythm control medications. She denies missing any doses of Eliquis. She had a PET scan done in Jul 2024 that showed intense uptake within the mediastinal mass and some scattered areas of uptake within the thoracic vertebral bodies suspicious for metastasis as well as concern for sternal metastasis inferiorly. She also had a PEG tube placed in August 2024 due to reduced appetite during her hospitalization for new onset atrial fibrillation. She states her manages her feeds through the PEG tube in addition to having one solid meal a day orally. She had a hospice consult at her last visit but she didn't go through with it as she wasn't happy with them. CT of the chest abdomen pelvis with contrast done on October 2024 shows marked positive treatment response to large mediastinal mass with residual abnormal soft tissue present, round 1.9 cm area in the left hilum could reflect focal necrosis that was unchanged from August, new round 1.3 cm low-density focus in the medial right groin could reflect small hematoma, metastatic neoplasm felt much less likely but not entirely excluded as well as possible mild new distal uncomplicated acute colitis. She complains of a lump her groin that she just now noticed was draining. Her oncologist is aware of her thrombocytopenia and they have told her that they will maintain her platelet count above 50. Currently she is off all chemotherapy and radiation, last radiation therapy was in September. She is scheduled to have another PET scan on November 10. 11/04 - She is seen and examined at bedside this morning. No acute events overnight. This morning she is noted to being in severe pain in that same right sided chest wall area. Pulmonary embolism noted to be relatively small in size, pain likely related to malignancy. Discussed with her at length approach to pain management, and the initiation of CHEMICAL INSTRUMENTATION OFFICER pump. REVIEW OF SYSTEMS: Pertinent positives and negatives noted in HPI. Physical Exam: Vital signs reviewed General: acute distress, appears at stated age Derm: warm, dry, intact Head: atraumatic, normocephalic, symmetric Cardiovascular: S1 S2 reg, no murmur Lungs: wheezing, no rhonchi, no rales, no accessory muscle use Abdominal: tender to palpation on the right chest and abdominal wall, PEG Tube with healthy looking skin surrounding area of entrance : lump in the right groin with clear discharge Extremities: No cyanosis, clubbing, or pedal edema. Neuro: Alert, Oriented, 4/5 strength in all 4 extremities Psych: anxious Data Received Today: Labs: WBC 9.06, hemoglobin 7.4, hematocrit 23.6, MCV 101.3, platelet 84; sodium 133, potassium 5.1, chloride 97, BUN 27, creatinine 0.81, calcium 9.6 Imagining: No new imaging today Assessment and plan Patient is a 64 year old female with past medical history of COPD, GERD, psoriasis, non-small cell lung cancer, presented to the ED with right-sided chest wall pain. #Acute pulmonary embolism, likely secondary to hypercoagulability due to history of Squamous cell carcinoma of the mediastinum -Chest CTA shows pulmonary embolism involving the second-order right lower lobe pulmonary artery, no additional filling defects, no evidence of large saddle embolism -Consider CTPA or TTE to further assess RV functional status -sPESI >1 -Heparin drip discontinued; started on Lovenox 70 mg every 12 hours, as recommended anticoagulation for cancer patients with PE, with initial dose of Lovenox given within 1 hour of discontinuing heparin drip -Started on Dilaudid CHEMICAL INSTRUMENTATION OFFICER pump, additional pain control with Percocet 7.5 2 pills every 4 hours and Dilaudid 1 mg IVP every 3 hours as needed for breakthrough pain -Continue telemetry monitoring -Oncology consulted #Thrombocytopenia #Epistaxis -Platelet count 84 -Her oncologist is aware and recommended to maintain platelet count above 50 -Monitor CBC #Hypoproteinemia and hypoalbuminemia, likely due to nutritional deficiency due to poor oral intake -Patient unable to tolerate oral intake -Patient has PEG tube, relies mostly on tube feeding boluses at home. She states she takes 6 8oz Jevity 1.5 cartons/day. 2 per/meal. States she is supposed to be trying to eat one solid meal/day by mouth but cannot tolerate much. -Field Sales Agent consulted #Mild hyponatremia, likely due to poor solute intake -Na 133 this morning -Continue 0.9 normal saline at 75 ml/hr -Monitor BMP #Nausea and vomiting -Continue Ondansetron 4 mg IVP Q8HR PRN #Normocytic anemia -Hgb 7.4 this morning -Transfuse PRBC for hemoglobin less than 7 -Monitor CBC #Paroxysmal Atrial fibrillation with RVR, on anticoagulation, [id number] of 2 -Pulse 111 bpm -Patient not maintained on any rate or rhythm control medications -Start Metoprolol 25 mg PO BID -Monitor vital signs #Right groin lump -CT scan done couple weeks ago showed 1.3 cm possible collection -Clear drainage now , consider Gen surg consult if getting worse. Chronic: #History of COPD, currently not on home oxygen #GERD -Continue albuterol inhaler, Duonebs, Pantoprazole 40 mg PO daily. DVT ppx: Heparin drip Code status: Full code F: NS 75 cc/h E: Replete as needed N: Heart healthy diet A: Ambulatory Anticipated discharge place: Pending clinical course Anticipated discharge time: Pending clinical course Dictation was produced using [employer] dictation software. please excuse any grammatical, word or spelling errors. Colby Selby MD PGY-1 IM I saw and evaluated the patient during the villeda and critical portions of this encounter, and discussed the case in detail with the resident author of this note, I agree with the Assessment and Plan, and my changes, if any, are highlig hted in blue. Objective - Vital Signs Vital signs: Vital Signs Temp 98.4 F 11/04/24 04:28 Pulse 110 H 11/04/24 04:28 Resp 18 11/04/24 04:28 BP 102/60 11/04/24 04:28 Pulse Ox 92 L 11/04/24 04:28 FiO2 Intake & Output 11/03/24 11/04/24 11/04/24 18:59 06:59 18:59 Intake Total 109.564 Balance 109.564 Weight 73.6 kg Intake: Intake, IV Titration 109.564 Amount Heparin Sod,Pork in 0.45% 109.564 NaCl 25,000 unit In 0.45 % NaCl 1 250ml.bag @ 18 UNITS/KG/HR 13.227 mls/hr IV .[id number] [facility] Rx#: [id number] Other: Voiding Method Bedside Commode # Voids 1 - Labs CBC & Chem 7: 11/04/24 04:43 11/04/24 04:43 Labs: Abnormal Lab Results - Last 24 Hours (Table) 11/03/24 11/03/24 11/03/24 Range/Units 20:15 20:15 22:35 RBC 2.48 L 2.29 L (4.10-5.20) 10*6/uL Hgb 8.0 L 7.5 L (12.0-15.0) g/dL Hct 24.4 L 22.5 L (37.2-46.3) % MCV 98.4 H 98.3 H (80.0-97.0) fL MCH 32.3 H 32.8 H (27.0-32.0) pg MCHC (32.0-37.0) g/dL Plt Count 83 L 82 L (140-440) 10*3/uL Immature Gran # 0.08 H (0.00-0.04) 10*3/uL Neutrophils # (1.80-7.70) 10*3/uL Lymphocytes # 0.53 L 0.61 L (0.90-5.00) 10*3/uL APTT (22.0-30.0) sec Sodium 133 L (137-145) mmol/L Chloride 97 L (98-107) mmol/L BUN 25 H (7-17) mg/dL Glucose 155 H (74-99) mg/dL Total Protein 6.1 L (6.3-8.2) g/dL Albumin 3.4 L (3.5-5.0) g/dL 11/04/24 11/04/24 11/04/24 Range/Units 04:43 04:43 04:43 RBC 2.33 L (4.10-5.20) 10*6/uL Hgb 7.4 L (12.0-15.0) g/dL Hct 23.6 L (37.2-46.3) % MCV 101.3 H (80.0-97.0) fL MCH (27.0-32.0) pg MCHC 31.4 L (32.0-37.0) g/dL Plt Count 84 L (140-440) 10*3/uL Immature Gran # 0.12 H (0.00-0.04) 10*3/uL Neutrophils # 7.88 H (1.80-7.70) 10*3/uL Lymphocytes # 0.55 L (0.90-5.00) 10*3/uL APTT 37.1 H (22.0-30.0) sec Sodium 133 L (137-145) mmol/L Chloride 97 L (98-107) mmol/L BUN 27 H (7-17) mg/dL Glucose 133 H (74-99) mg/dL Total Protein (6.3-8.2) g/dL Albumin (3.5-5.0) g/dL
--- NOTE | 2024-11-04 14:26 | CA ---
Transthoracic Echo Report Name: Britany Blount Age: 64 Gender: F : 1960 Exam Date: 11/04/2024 11:52 Exam Location: [facility] Ht (in): 65 Wt (lb): 162 Ordering Physician: Tommy Selby MD Attending/Referring Phys: Account Group Supervisor Lilian Corral RDCS Procedure CPT: Indications: PE Cardiac Hx: Limited, last prior 09/01/24 Technical Quality: Poor Contrast 1: Total Dose (mL): Contrast 2: Total Dose (mL): MEASUREMENTS (Male / Female) Normal Values 2D ECHO LV Diastolic Diameter PLAX 4.1 cm 4.2 - 5.9 / 3.9 - 5.3 cm LV Systolic Diameter PLAX 2.8 cm IVS Diastolic Thickness 1.2 cm 0.6 - 1.0 / 0.6 - 0.9 cm LVPW Diastolic Thickness 1.1 cm 0.6 - 1.0 / 0.6 - 0.9 cm LV Relative Wall Thickness 0.6 LVOT Diameter 1.8 cm M-MODE LV Diastolic Diameter MM 6.0 cm 4.2 - 5.9 / 3.9 - 5.3 cm LV Systolic Diameter MM 3.7 cm LV Cardiac Index MM Teich 7282.6 cm???/min???m??? IVS Diastolic Thickness MM 1.2 cm 0.6 - 1.0 / 0.6 - 0.9 cm LVPW Diastolic Thickness MM 1.2 cm 0.6 - 1.0 / 0.6 - 0.9 cm LV Relative Wall Thickness MM 0.4 0.24 - 0.42 / 0.22 - 0.42 LV Mass Index MM 165.9 g/m??? 49 - 115 / 43 - 95 g/m??? DOPPLER AV Peak Velocity 197.1 cm/s AV Peak Gradient 15.5 mmHg AV Mean Velocity 137.2 cm/s AV Mean Gradient 8.2 mmHg AV Velocity Time Integral 31.1 cm LVOT Peak Velocity 136.9 cm/s LVOT Peak Gradient 7.5 mmHg LVOT Velocity Time Integral 20.1 cm LVOT Stroke Volume 50.2 cm??? LVOT Stroke Volume Index 27.8 ml/m??? LVOT Cardiac Index 3118.5 cm???/min???m??? AV Area Cont Eq vti 1.6 cm??? AV Area Cont Eq pk 1.7 cm??? TR Peak Velocity 319.5 cm/s TR Peak Gradient 40.8 mmHg Right Atrial Pressure 10.0 mmHg Pulmonary Artery Systolic Pressu 50.8 mmHg Right Ventricular Systolic Press 50.8 mmHg PV Peak Velocity 121.9 cm/s PV Peak Gradient 5.9 mmHg FINDINGS Left Ventricle Left ventricular ejection fraction is estimated at 60-65 %. Severely increased left ventricular mass. Mildly increased septal wall thickness. Mildly increased posterior wall thickness. Moderately increased left ventricular diastolic diameter. No obvious regional wall motion abnormalities. Right Ventricle Right ventricle not well visualized. Normal right ventricular global systolic function. Moderate pulmonary hypertension. Right Atrium Right atrium not well visualized. Left Atrium Normal left atrial size. Mitral Valve Structurally normal mitral valve. No mitral stenosis, regurgitation or prolapse. Aortic Valve Trileaflet aortic valve. No aortic valve stenosis or regurgitation. Tricuspid Valve Structurally normal tricuspid valve. No tricuspid stenosis. Mild tricuspid regurgitation. Pulmonic Valve Pulmonic valve not well visualized. No pulmonic stenosis. Trace pulmonic regurgitation. Pericardium Trace pericardial effusion. Fat pad. Aorta Aortic root and proximal ascending aorta not assessed. CONCLUSIONS Left ventricular ejection fraction 60 to 65% Mildly increased left ventricular wall thickness RVSP 50 No mitral regurgitation Mild tricuspid regurgitation Trace pericardial effusion Previewed by: Dr. Fran Riley DO (Electronically Signed) Final Date: 04 November 2024 14:25
[2024-11-04] MEDS: ENOXAPARIN 80 MG/0.8 ML SYRINGE SQ SCH (14:41)
--- NOTE | 2024-11-04 14:43 | P.CONS ---
History of Present Illness - Reason for Consult Consult date: 11/04/24 PE Requesting physician: Mickey Gasca - Chief Complaint CP - History of Present Illness Ms. Blount is a very pleasant 64-year-old female with a history of multiple comorbidities including stage III non-small cell lung cancer status post concurrent chemotherapy with radiation, and planned maintenance immunotherapy which has not started yet, who is here for right sided chest pain for the past week. This is associated with cough and shortness of breath and has been w orsening which prompted ER visit. She is on Eliquis 5 milligrams twice a day for her A-fib without any missed doses. Workup in the ER with lower extremity Doppler ultrasound was negative. CT/PE showed right sided PE, otherwise no acute changes. Blood work showed a hemoglobin of 8, platelet of 83 (improved from 60s during last clinic visit). She was started on heparin drip and admitted. During her chart, she did have CT CAP with IV contrast on 10/25/2024 to reassess her lung cancer, and PE was not seen on that scan. She is having severe right lateral lower chest pain, just under the rib, that is limiting her breathing and movement significantly. Tender to palpation but area is soft. Oncologic History: Pt follows with Dr. Zulma Wooten. She presented to [facility] on 07/13/2024 with increased dyspnea, chest pain, and cough of 2 months duration despite antibiotics. CTA of the chest revealed no evidence of pulmonary embolism, but did note large mediastinal mass measuring up to 7.7 cm with compression of the right mainstem and right upper lobe bronchi. Bronchoscopy performed on 07/14/2024 was nondiagnostic although BAL noted rare atypical cells concerning for potential of non-small cell carcinoma. Repeat bronchoscopy with EBUS on 07/27/2024 revealed non-small cell carcinoma consistent with squamous cell carcinoma. CT of the brain with contrast on 08/03/2024 revealed no intracranial metastasis. This was consistent with stage IIIA (T4 N0 M0) squamous cell carcinoma of the lung. PD-L1 was 85%, but NGS could not be performed due to insufficient tissue sample. Guardant circulating tumor molecular profiling obtained on 09/28/2024 revealed 2 TP53 mutations with no targetable mutations. She is initially scheduled to begin concurrent chemoradiotherapy on 08/22/2024, but was admitted to [facility] with paraneoplastic hypercalcemia that was treated with IV fluids and bisphosphonate. Cycle 1 of weekly carboplatin/paclitaxel was initiated on 08/17/2024 and received cycle 2 outpatient. She was readmitted to [facility] on 09/01/2024 with dysphagia and atrial fibrillation with RVR and had PEG tube placement on 09/02/2024 after rate control. Her hospitalization was subsequently complicated by pneumonia versus radiation pneumonitis that improved with antibiotics and oral steroids. Cycle 3 of weekly carboplatin/paclitaxel was administered inpatient on 09/12/2024 -Following discharge on 09/14/2024, she completed cycle 6 of weekly treatment on 10/10/2024. Staging CT scans posttreatment on 10/25/2024 revealed marked decrease in the mediastinal mass with possible lymphadenopathy in the left hilar region that was seen on CTA of the chest on 08/20/2024 along with right inguinal lymph node that is palpable on exam and is tender to palpation. She was previously on methotrexate that was discontinued after hospitalization for psoriatic arthritis, which could potentially contribute to lymphadenopathy noted on imaging. The upper right abdominal pain is likely secondary to muscular strain as this was tender to palpation without any palpable lesion. Last seen on 11/01/24, and plan was to proceed with consolidative durvalumab once monthly for 1 year per the PACIF trial. PET/CT was ordered through radiation oncology. Past Medical History Past Medical History: Cancer, COPD, GERD/Reflux, Hearing Disorder / Deafness, Pneumonia, Skin Disorder Additional Past Medical History / Comment(s): psoriatic arthritis, right ear deaf, psoriasis hands feet. squmaous cell chest History of Any Multi-Drug Resistant Organisms: None Reported Past Surgical History: Back Surgery, Breast Surgery, Cholecystectomy, Joint Replacement, Orthopedic Surgery, Tubal Ligation Additional Past Surgical History / Comment(s): R hip replacement January 2024. 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, arthroscopy bilateral knees, left foot bone spur, ablation to back , injections to back, breast bx left, titanium tag, egd ,colonoscopy Past Anesthesia/Blood Transfusion Reactions: No Reported Reaction Additional Past Anesthesia/Blood Transfusion Reaction / Comm: no blood transfusion Past Psychological History: ADD/ADHD, Anxiety Smoking Status: Former smoker Past Alcohol Use History: Occasional Past Drug Use History: None Reported Medications and Allergies Home Medications Medication Instructions Recorded Confirmed Type Albuterol Inhaler [Ventolin Hfa 2 puff INHALATION RT-Q4H PRN 02/04/24 11/04/24 History Inhaler] Amitriptyline HCl 25 mg PO HS 02/04/24 11/04/24 History Cetirizine HCl 10 mg PO DAILY 02/04/24 11/04/24 History Prochlorperazine [Compazine] 10 mg PO Q6H PRN 08/15/24 11/04/24 History oxyCODONE-APAP 5-325MG [Percocet 1 tab PO QID PRN 08/31/24 11/04/24 History 5-325 mg] Apixaban [Eliquis] 5 mg PO BID #120 tab 09/14/24 11/04/24 Rx Midodrine [ProAmatine] 5 mg PO BID PRN 11/04/24 11/04/24 History Pantoprazole [Protonix] 40 mg PO BID 11/04/24 11/04/24 History Allergies Allergy/AdvReac Type Severity Reaction Status Date / Time lactose Allergy Unknown Verified 11/04/24 10:34 mold Allergy Unknown Verified 11/04/24 10:34 nickel Allergy Rash/Hives Verified 11/04/24 10:34 NSAIDS (Non-Steroidal AdvReac ACID REFLUX Verified 11/04/24 10:34 Anti-Inflamma dust Allergy Unknown Uncoded 11/04/24 10:34 Physical Exam Vitals: Vital Signs Temp Pulse Pulse Resp BP BP Pulse Ox 11/04/24 08:00 98.2 F 109 H 18 112/68 94 L 11/04/24 04:28 98.4 F 110 H 18 102/60 92 L 11/04/24 00:00 98.6 F 116 H 22 136/76 95 11/03/24 22:59 109 H 18 106/65 96 11/03/24 21:57 109 H 18 107/53 11/03/24 21:21 109 H 20 97/64 93 L 11/03/24 20:35 120 H 18 104/58 95 11/03/24 19:09 98.8 F 112 H 24 107/53 96 Intake and Output 11/03/24 11/04/24 11/04/24 22:59 06:59 14:59 Intake Total 109.564 Balance 109.564 Intake: Intake, IV Titration 109.564 Amount Heparin Sod,Pork in 0.45% 109.564 NaCl 25,000 unit In 0.45 % NaCl 1 250ml.bag @ 18 UNITS/KG/HR 13.227 mls/hr IV .[id number] [facility] Rx#: [id number] Other: Voiding Method Bedside Commode Bedside Commode # Voids 1 Weight 73.482 kg 73.6 kg Patient appears to be in mild distress due to pain, and having difficulty with her breathing due to the pain. Alert and oriented x 3. Heart is regular rate. No jaundice. Abdomen is soft with tenderness in the upper lateral aspect of the abdomen/lower lateral aspect of the chest wall, without any tenderness in the rest of her abdomen. Results CBC & Chem 7: 11/04/24 04:43 11/04/24 04:43 Labs: Abnormal Lab Results - Last 24 Hours (Table) 11/03/24 11/03/24 11/03/24 Range/Units 20:15 20:15 22:35 RBC 2.48 L 2.29 L (4.10-5.20) 10*6/uL Hgb 8.0 L 7.5 L (12.0-15.0) g/dL Hct 24.4 L 22.5 L (37.2-46.3) % MCV 98.4 H 98.3 H (80.0-97.0) fL MCH 32.3 H 32.8 H (27.0-32.0) pg MCHC (32.0-37.0) g/dL Plt Count 83 L 82 L (140-440) 10*3/uL Immature Gran # 0.08 H (0.00-0.04) 10*3/uL Neutrophils # (1.80-7.70) 10*3/uL Lymphocytes # 0.53 L 0.61 L (0.90-5.00) 10*3/uL APTT (22.0-30.0) sec Sodium 133 L (137-145) mmol/L Chloride 97 L (98-107) mmol/L BUN 25 H (7-17) mg/dL Glucose 155 H (74-99) mg/dL Total Protein 6.1 L (6.3-8.2) g/dL Albumin 3.4 L (3.5-5.0) g/dL 11/04/24 11/04/24 11/04/24 Range/Units 04:43 04:43 04:43 RBC 2.33 L (4.10-5.20) 10*6/uL Hgb 7.4 L (12.0-15.0) g/dL Hct 23.6 L (37.2-46.3) % MCV 101.3 H (80.0-97.0) fL MCH (27.0-32.0) pg MCHC 31.4 L (32.0-37.0) g/dL Plt Count 84 L (140-440) 10*3/uL Immature Gran # 0.12 H (0.00-0.04) 10*3/uL Neutrophils # 7.88 H (1.80-7.70) 10*3/uL Lymphocytes # 0.55 L (0.90-5.00) 10*3/uL APTT 37.1 H (22.0-30.0) sec Sodium 133 L (137-145) mmol/L Chloride 97 L (98-107) mmol/L BUN 27 H (7-17) mg/dL Glucose 133 H (74-99) mg/dL Total Protein (6.3-8.2) g/dL Albumin (3.5-5.0) g/dL CT scan - chest: report reviewed Assessment and Plan Assessment: 1. Acute PE 2. Chemo induced anemia and thrombocytopenia/bicytopenia 3. Chest pain 4. Stage III non-small cell lung cancer 5. Atrial fibrillation Plan: Ms. Blount is a very pleasant 64-year-old female with multiple comorbidities including A-fib on Eliquis 5 mg twice a day as well as stage III non-small cell lung cancer status post chemotherapy with concurrent radiation and planned ana ntenance immunotherapy who is here for chest pain, found to have acute right lung PE. - PE likely provoked due to malignancy - Unclear etiology her her pain however. Doubt pain is due to PE as she has severe pain and tenderness, on a [employer] - Recommend CT Abd to better characterize the upper abdomen where her pain seems to be - She seems to have failed Eliquis, agree with heparin drip now and may need Lovenox upon discharge - Monitor CBC closely, she does have chemo induced anemia and thrombocytopenia with what appears to be improving thrombocytopenia - She can follow-up for maintenance immunotherapy as previously planned outpatient - Outpatient PET scan as previously planned Discussed with patient and she is agreeable to the plan. All of her questions were answered.
[2024-11-04 16:59] LABS: Glucose,Whole Blood 150 mg/dL (70-110)
[2024-11-04] MEDS ORDERED: DEXTROSE 50% SYRINGE 50 ML IVP PRN ×2 (17:00)
[2024-11-04 19:55] LABS: Glucose,Whole Blood 139 mg/dL (70-110)
[2024-11-04] MEDS: INSULIN LISPRO (HumaLOG) 100 UNIT/ML 10 mL VL SQ SCH (19:57)
[2024-11-04] MEDS: AMITRIPTYLINE HCL 25 MG TAB PO SCH (20:39)
[2024-11-05 00:02] LABS: Glucose,Whole Blood 138 mg/dL (70-110)
[2024-11-05 04:54] LABS: Glucose,Whole Blood 175 mg/dL (70-110)
[2024-11-05 07:50] LABS: Basophils # (A) 0.01 10*3/uL (0.00-0.10); Basophils % (A) 0.2 %; Eosinophils # (A) 0.19 10*3/uL (0.04-0.35); Eosinophils % (A) 3.4 %; HCT 20.1 % (37.2-46.3); Lymphocytes # (A) 0.53 10*3/uL (0.90-5.00); Lymphocytes % (A) 9.4 %; MCH 31.1 pg (27.0-32.0); MCHC 30.3 g/dL (32.0-37.0); MCV 102.6 fL (80.0-97.0); Mean Platelet Volume 10.4 fL (9.5-12.2); Monocytes # (A) 0.28 10*3/uL (0.20-1.00); Neutrophils % (A) 81.5 %; RBC 1.96 10*6/uL (4.10-5.20); RDW 19.5 % (11.5-14.5); WBC 5.64 10*3/uL (4.50-10.00)
[2024-11-05] MEDS: LORATADINE 10 MG TAB PO SCH (08:01)
[2024-11-05 08:03] LABS: HGB 6.1 g/dL (12.0-15.0)
[2024-11-05 08:06] LABS: African American GFR (CKD) >90 (>60 ml/min/1.73 sqM); Anion Gap 5 mmol/L; Blood Urea Nitrogen 23 mg/dL (7-17); Calcium 8.8 mg/dL (8.4-10.2); Carbon Dioxide 28 mmol/L (22-30); Chloride 99 mmol/L (98-107); Glucose 148 mg/dL (74-99); Magnesium 2.2 mg/dL (1.6-2.3); Non-African American GFR(CKD) 87 (>60 ml/min/1.73 sqM); Sodium 132 mmol/L (137-145)
[2024-11-05 08:28] LABS: Glucose,Whole Blood 148 mg/dL (70-110)
[2024-11-05 09:20] LABS: Platelet Count 106 10*3/uL (140-440)
[2024-11-05] MEDS: oxyCODONE-APAP 7.5-325MG 1 EACH TAB PO PRN (11:28)
[2024-11-05 11:43] LABS: Glucose,Whole Blood 140 mg/dL (70-110)
[2024-11-05] MEDS: IPRATROPIUM-ALBUTEROL 3 ML NEB INHALATION PRN (12:21)
[2024-11-05] MEDS: ALPRAZolam 0.5 MG TAB PO PRN (13:57)
--- NOTE | 2024-11-05 14:27 | P.PN ---
Subjective Progress Note Date: 11/05/24 64 year old female with past medical history of squamous cell carcinoma of the mediastinum, COPD, atrial fibrillation presented to the ED with right-sided chest wall pain. Patient reports having right-sided chest wall/abdominal wall pain for a week now. The pain radiates to the epigastrium. She has noted worsening of the pain when she tenses the abdominal muscles or if she reaches to her right side. De nies any trauma. First she tried heating pads and Flexeril but that didn't help. Then she tried reaching out to her primary care physician as well as her oncologist. She was prescribed OxyContin, but states that is not helping with the pain. She also complains of shortness of breath all the time and a cough with greyish green sputum production. She reports epistaxis as well. Associated with that she experienced nausea and vomiting. Patient states following up with her doctor who took her off all the inhalers for COPD and the patient is also not using oxygen at home as her oxygen saturation was above 95. She also reports being allergic to NSAIDS as they cause "burning all the way through her back and feeling of food getting stuck her chest". Additionally, patient was recently admitted to the hospital in Aug 2024 for New onset atrial fibrillation. Echocardiogram done at that visit showed EF 55-60%, hyperdynamic LV, No obvious regional wall motion abnormality, mild MR. She is currently on Eliquis for anticoaguation and no rate or rhythm control medications. She denies missing any doses of Eliquis. She had a PET scan done in Jul 2024 that showed intense uptake within the mediastinal mass and some scattered areas of uptake within the thoracic vertebral bodies suspicious for metastasis as well as concern for sternal metastasis inferiorly. She also had a PEG tube placed in August 2024 due to reduced appetite during her hospitalization for new onset atrial fibrillation. She states her manages her feeds through the PEG tube in addition to having one solid meal a day orally. She had a hospice consult at her last visit but she didn't go through with it as she wasn't happy with them. CT of the chest abdomen pelvis with contrast done on October 2024 shows marked positive treatment response to large mediastinal mass with residual abnormal soft tissue present, round 1.9 cm area in the left hilum could reflect focal necrosis that was unchanged from August, new round 1.3 cm low-density focus in the medial right groin could reflect small hematoma, metastatic neoplasm felt much less likely but not entirely excluded as well as possible mild new distal uncomplicated acute colitis. She complains of a lump her groin that she just now noticed was draining. Her oncologist is aware of her thrombocytopenia and they have told her that they will maintain her platelet count above 50. Currently she is off all chemotherapy and radiation, last radiation therapy was in September. She is scheduled to have another PET scan on November 10. 11/04 - She is seen and examined at bedside this morning. No acute events overnight. This morning she is noted to being in severe pain in that same right sided chest wall area. Pulmonary embolism noted to be relatively small in size, pain likely related to malignancy. Discussed with her at length approach to pain management, and the initiation of IMPREGNATOR OPERATOR pump. 11/05 - Pt is quite anxious today, speech is tangential, restless legs, with labile mood. Hgb down to 6.1, receiving PRBC transfusion. On lovenox, no evidence of bleeding. REVIEW OF SYSTEMS: Pertinent positives and negatives noted in HPI. Physical Exam: Vital signs reviewed General: acute distress, appears at stated age Derm: warm, dry, intact Head: atraumatic, normocephalic, symmetric Cardiovascular: S1 S2 reg, no murmur Lungs: wheezing, no rhonchi, no rales, no accessory muscle use Abdominal: tender to palpation on the right chest and abdominal wall, PEG Tube with healthy looking skin surrounding area of entrance : lump in the right groin with clear discharge Extremities: No cyanosis, clubbing, or pedal edema. Neuro: Alert, Oriented, 4/5 strength in all 4 extremities Psych: anxious Data Received Today: Assessment and plan Patient is a 64 year old female with past medical history of COPD, GERD, psoriasis, non-small cell lung cancer, presented to the ED with right-sided chest wall pain. #Acute pulmonary embolism, likely secondary to hypercoagulability due to history of Squamous cell carcinoma of the mediastinum -Chest CTA shows pulmonary embolism involving the second-order right lower lobe pulmonary artery, no additional filling defects, no evidence of large saddle embolism -Consider CTPA or TTE to further assess RV functional status -sPESI >1 -Heparin drip discontinued; started on Lovenox 70 mg every 12 hours, as recommended anticoagulation for cancer patients with PE, with initial dose of Lovenox given within 1 hour of discontinuing heparin drip -Started on Dilaudid IMPREGNATOR OPERATOR pump, additional pain control with Percocet 7.5 2 pills every 4 hours and Dilaudid 1 mg IVP every 3 hours as needed for breakthrough pain - will sum total of IMPREGNATOR OPERATOR pump tomorrow AM and convert to long acting opiate, with plan to d/c on opiate regimen wednesday -Continue telemetry monitoring -Oncology consulted #Thrombocytopenia #Epistaxis -Her oncologist is aware and recommended to maintain platelet count above 50 -Monitor CBC #Hypoproteinemia and hypoalbuminemia, likely due to nutritional deficiency due to poor oral intake -Patient unable to tolerate oral intake -Patient has PEG tube, relies mostly on tube feeding boluses at home. She states she takes 6 8oz Jevity 1.5 cartons/day. 2 per/meal. States she is supposed to be trying to eat one solid meal/day by mouth but cannot tolerate much. -Director Design consulted #Mild hyponatremia, likely due to poor solute intake -Continue 0.9 normal saline at 75 ml/hr -Monitor BMP #Nausea and vomiting -Continue Ondansetron 4 mg IVP Q8HR PRN #Normocytic anemia -Transfuse PRBC for hemoglobin less than 7; required 1U PRBC 11/05 -Monitor CBC #Paroxysmal Atrial fibrillation with RVR, on anticoagulation, [id number] of 2 -Patient not maintained on any rate or rhythm control medications -Continue Metoprolol 25 mg PO BID -Monitor vital signs #Right groin lump, likely Seroma -CT scan done couple weeks ago showed 1.3 cm possible collection -Clear drainage now , consider Gen surg consult if getting worse. Chronic: #History of COPD, currently not on home oxygen #GERD -Continue albuterol inhaler, Duonebs, Pantoprazole 40 mg PO daily. DVT ppx: enoxaparin Code status: Full code, GOC conversation warranted, deferred at this time to oncology team F: NS 75 cc/h E: Replete as needed N: Heart healthy diet A: Ambulatory Anticipated discharge place: Pending clinical course Anticipated discharge time: Pending clinical course Dictation was produced using [employer] dictation software. please excuse any grammatical, word or spelling errors. Objective - Vital Signs Vital signs: Vital Signs Temp 99.2 F 11/05/24 12:38 Pulse 95 11/05/24 13:08 Resp 17 11/05/24 13:08 BP 90/53 11/05/24 13:08 Pulse Ox 95 11/05/24 13:15 FiO2 Intake & Output 11/04/24 11/05/24 11/05/24 18:59 06:59 18:59 Intake Total 109.564 0 Output Total 600 400 450 Balance -490.436 -400 -450 Weight 73.6 kg Intake: Intake, IV Titration 109.564 Amount Heparin Sod,Pork in 0.45% 109.564 NaCl 25,000 unit In 0.45 % NaCl 1 250ml.bag @ 18 UNITS/KG/HR 13.227 mls/hr IV .[id number] [facility] Rx#: [id number] Blood Product 0 Unit 0 Output: Urine 600 400 450 Other: Voiding Method Bedside Commode Bedside Commode Bedside Commode # Voids 1 - Labs CBC & Chem 7: 11/05/24 06:44 11/05/24 06:44 Labs: Abnormal Lab Results - Last 24 Hours (Table) 11/04/24 11/04/24 11/05/24 Range/Units 16:35 19:53 00:00 RBC (4.10-5.20) 10*6/uL Hgb (12.0-15.0) g/dL Hct (37.2-46.3) % MCV (80.0-97.0) fL MCHC (32.0-37.0) g/dL Plt Count (140-440) 10*3/uL Lymphocytes # (0.90-5.00) 10*3/uL Sodium (137-145) mmol/L BUN (7-17) mg/dL Glucose (74-99) mg/dL POC Glucose (mg/dL) 150 H 139 H 138 H (70-110) mg/dL Crossmatch 11/05/24 11/05/24 11/05/24 Range/Units 04:51 06:44 06:44 RBC 1.96 L (4.10-5.20) 10*6/uL Hgb 6.1 L* (12.0-15.0) g/dL Hct 20.1 L (37.2-46.3) % MCV 102.6 H (80.0-97.0) fL MCHC 30.3 L (32.0-37.0) g/dL Plt Count 106 L (140-440) 10*3/uL Lymphocytes # 0.53 L (0.90-5.00) 10*3/uL Sodium 132 L (137-145) mmol/L BUN 23 H (7-17) mg/dL Glucose 148 H (74-99) mg/dL POC Glucose (mg/dL) 175 H (70-110) mg/dL Crossmatch 11/05/24 11/05/24 11/05/24 Range/Units 08:25 09:42 11:23 RBC (4.10-5.20) 10*6/uL Hgb (12.0-15.0) g/dL Hct (37.2-46.3) % MCV (80.0-97.0) fL MCHC (32.0-37.0) g/dL Plt Count (140-440) 10*3/uL Lymphocytes # (0.90-5.00) 10*3/uL Sodium (137-145) mmol/L BUN (7-17) mg/dL Glucose (74-99) mg/dL POC Glucose (mg/dL) 148 H 140 H (70-110) mg/dL Crossmatch See Detail
[2024-11-05 16:30] LABS: Glucose,Whole Blood 175 mg/dL (70-110)
[2024-11-05 17:07] LABS: Glucose,Whole Blood 205 mg/dL (70-110)
[2024-11-05 20:01] LABS: Glucose,Whole Blood 114 mg/dL (70-110)
[2024-11-05 23:37] LABS: Glucose,Whole Blood 123 mg/dL (70-110)
[2024-11-06 03:49] LABS: Glucose,Whole Blood 143 mg/dL (70-110)
[2024-11-06 07:15] LABS: African American GFR (CKD) >90 (>60 ml/min/1.73 sqM); Anion Gap 3 mmol/L; Blood Urea Nitrogen 17 mg/dL (7-17); Calcium 8.5 mg/dL (8.4-10.2); Carbon Dioxide 28 mmol/L (22-30); Chloride 102 mmol/L (98-107); Glucose 143 mg/dL (74-99); Non-African American GFR(CKD) >90 (>60 ml/min/1.73 sqM); Potassium 4.6 mmol/L (3.5-5.1); Sodium 133 mmol/L (137-145)
[2024-11-06 07:36] LABS: Basophils # (A) 0.01 10*3/uL (0.00-0.10); Basophils % (A) 0.2 %; Eosinophils % (A) 4.4 %; Lymphocytes # (A) 0.53 10*3/uL (0.90-5.00); Lymphocytes % (A) 11.5 %; MCH 31.3 pg (27.0-32.0); MCHC 31.8 g/dL (32.0-37.0); MCV 98.2 fL (80.0-97.0); Mean Platelet Volume 10.4 fL (9.5-12.2); Monocytes # (A) 0.37 10*3/uL (0.20-1.00); Monocytes % (A) 8.1 %; Neutrophils # (A) 3.44 10*3/uL (1.80-7.70); Neutrophils % (A) 74.9 %; Platelet Count 132 10*3/uL (140-440); RBC 2.24 10*6/uL (4.10-5.20); RDW 21.8 % (11.5-14.5); WBC 4.59 10*3/uL (4.50-10.00)
[2024-11-06 08:12] LABS: Glucose,Whole Blood 137 mg/dL (70-110)
--- NOTE | 2024-11-06 08:29 | XR ---
EXAMINATION TYPE: XR chest 1V DATE OF EXAM: 11/06/2024 8:19 AM COMPARISON: Chest radiographs from 11/03/2024, CTA chest 11/03/2024 TECHNIQUE: XR chest 1V Portable AP radiograph of the chest. CLINICAL INDICATION:Female, 64 years old with history of hypoxia; FINDINGS: Lungs/Pleura: No pneumothorax. Biapical pleural thickening. Right basilar patchy airspace opacities w ith trace right pleural effusion. Pulmonary vascularity: Unremarkable. Heart/mediastinum: Cardiomediastinal silhouette is unremarkable. Musculoskeletal: No acute osseous pathology. Other findings: None Lines/Tubes: Right chest Mediport catheter with distal tip in the right atrium redemonstrated. IMPRESSION: Trace right pleural effusion with right basilar patchy airspace opacities which may represent atelect asis versus infiltrates. [facility], , 11/06/2024 8:27 AM
[2024-11-06] MEDS: cefTRIAXone 2 GM in DEXTROSE 5% IN WATER 50 ML IVPB SCH (09:44)
[2024-11-06] MEDS: AZITHROMYCIN 500 MG in SODIUM CHLORIDE 0.9% 250 ML IVPB SCH (10:37)
[2024-11-06 12:12] LABS: Glucose,Whole Blood 194 mg/dL (70-110)
--- NOTE | 2024-11-06 16:24 | P.PN ---
Subjective Progress Note Date: 11/06/24 Patient reporting lateral RUQ/lower rib pain. Pt has been started on ANTHROPOLOGY PROFESSOR pain pump. Having persisting cough. Hgb 7.0 s/p 1 unit PRBCs. IV abx started for suspected pneumonia Objective - Vital Signs Vital signs: Vital Signs Temp 98.7 F 11/06/24 07:37 Pulse 92 11/06/24 12:57 Resp 17 11/06/24 11:24 BP 95/57 11/06/24 11:24 Pulse Ox 98 11/06/24 11:24 FiO2 Intake & Output 11/05/24 11/06/24 11/06/24 18:59 06:59 18:59 Intake Total 283 Output Total 450 750 Balance -167 -750 Intake: Blood Product 283 Rc Pheresis 2 As3 Unit 283 [id number] Output: Urine 450 750 Other: Voiding Method Bedside Commode Bedside Commode Bedside Commode # Voids 1 # Bowel Movements 1 - Constitutional General appearance: Present: average body habitus, no acute distress - EENT Eyes: Present: anicteric sclerae, EOMI ENT: Present: hearing grossly normal - Respiratory Details: breathing is even and unlabored - Cardiovascular Details: skin warm and dry - Integumentary Integumentary: Present: pale. Absent: cyanotic, jaundiced - Musculoskeletal Musculoskeletal Comment(s): tenderness along lateral 8-10th ribs - Psychiatric Psychiatric: Present: A&O x's 3 - Labs CBC & Chem 7: 11/09/24 05:34 11/09/24 05:34 Labs: Abnormal Lab Results - Last 24 Hours (Table) 11/05/24 11/05/24 11/05/24 Range/Units 09:42 16:23 16:44 RBC (4.10-5.20) 10*6/uL Hgb (12.0-15.0) g/dL Hct (37.2-46.3) % MCV (80.0-97.0) fL MCHC (32.0-37.0) g/dL Plt Count (140-440) 10*3/uL Lymphocytes # (0.90-5.00) 10*3/uL Sodium (137-145) mmol/L Glucose (74-99) mg/dL POC Glucose (mg/dL) 175 H 205 H (70-110) mg/dL Crossmatch See Detail 11/05/24 11/05/24 11/06/24 Range/Units 19:56 23:35 03:44 RBC (4.10-5.20) 10*6/uL Hgb (12.0-15.0) g/dL Hct (37.2-46.3) % MCV (80.0-97.0) fL MCHC (32.0-37.0) g/dL Plt Count (140-440) 10*3/uL Lymphocytes # (0.90-5.00) 10*3/uL Sodium (137-145) mmol/L Glucose (74-99) mg/dL POC Glucose (mg/dL) 114 H 123 H 143 H (70-110) mg/dL Crossmatch 11/06/24 11/06/24 11/06/24 Range/Units 06:02 06:02 08:04 RBC 2.24 L (4.10-5.20) 10*6/uL Hgb 7.0 L (12.0-15.0) g/dL Hct 22.0 L (37.2-46.3) % MCV 98.2 H (80.0-97.0) fL MCHC 31.8 L (32.0-37.0) g/dL Plt Count 132 L (140-440) 10*3/uL Lymphocytes # 0.53 L (0.90-5.00) 10*3/uL Sodium 133 L (137-145) mmol/L Glucose 143 H (74-99) mg/dL POC Glucose (mg/dL) 137 H (70-110) mg/dL Crossmatch 11/06/24 Range/Units 11:54 RBC (4.10-5.20) 10*6/uL Hgb (12.0-15.0) g/dL Hct (37.2-46.3) % MCV (80.0-97.0) fL MCHC (32.0-37.0) g/dL Plt Count (140-440) 10*3/uL Lymphocytes # (0.90-5.00) 10*3/uL Sodium (137-145) mmol/L Glucose (74-99) mg/dL POC Glucose (mg/dL) 194 H (70-110) mg/dL Crossmatch - Imaging and Cardiology CT scan - chest: report reviewed Venous US: report reviewed Assessment and Plan (1) Acute pulmonary embolism Current Visit: Yes Status: Acute Code(s): I26.99 - OTHER PULMONARY EMBOLISM WITHOUT ACUTE COR PULMONALE SNOMED Code(s): 296574044 (2) Anemia Current Visit: Yes Status: Acute Priority: Medium Code(s): D64.9 - ANEMIA, UNSPECIFIED SNOMED Code(s): 033210747 (3) Squamous cell carcinoma lung Current Visit: No Status: Acute Priority: High Code(s): C34.90 - MALIGNANT NEOPLASM OF UNSP PART OF UNSP BRONCHUS OR LUNG SNOMED Code(s): 581477957 Plan: 1. Acute PE 2. Chemo induced anemia and thrombocytopenia/bicytopenia 3. Chest pain 4. Stage III non-small cell lung cancer 5. Atrial fibrillation Plan: Ms. Blount is a very pleasant 64-year-old female with multiple comorbidities including A-fib on Eliquis 5 mg twice a day as well as stage III non-small cell lung cancer status post chemotherapy with concurrent radiation and planned maintenance immunotherapy who is here for chest pain, found to have acute right lung PE. - PE likely provoked due to malignancy - Unclear etiology her her pain however. Doubt pain is due to PE as she has severe pain and tenderness, on a ANTHROPOLOGY PROFESSOR. Reports pain began after having coughing and felt a "pop" - Will obtain CT imaging to further evaluate right ribs - She seems to have failed Eliquis. She has been transitioned to Lovenox. Can continue while inpt, did discuss with patient about switching to Pradaxa upon discharge - Monitor CBC closely, she does have chemo induced anemia and thrombocytopenia with what appears to be improving thrombocytopenia. S/p 1 unit PRBCs, hgb 7.0 today - She can follow-up for maintenance immunotherapy as previously planned outpatient - Outpatient PET scan Discussed with patient and spouse, they were agreeable to the plan. All of her questions were answered. Doctor attests: I performed a history and physical examination of this patient, developed impression and plan of care. Discussed with dictator. I agree with dictators note, documented as a scribe. Patient seen with PLASTICS TOOLING ENGINEER and agree with A&P outlined above. Ms. Blount underwent concurrent chemo/RT for stage IIIA squamous cell carcinoma of the lung with cycle 6 completed on 10/10/24 with significant radiographic response on post- treatment imaging from 10/25/24. She reported development or sharp right sided chest wall discomfort after persistent coughing with CT ribs revealing acute fracture of right 10th rib. I do not believe this is related to her malignancy. As such, she does not require high dose narcotics, but should be treated as any other rib fracture. She is somnolent on exam and not able to consistently participate in conversation. Recommend weaning down narcotic medication. She has persistent chemotherapy induced anemia with no evidence of nutritional deficiency or hemolysis. Continue to monitor and transfuse for Hgb < 7. Zulma Wooten MD
[2024-11-06 16:26] LABS: Glucose,Whole Blood 154 mg/dL (70-110)
--- NOTE | 2024-11-06 17:09 | P.PN ---
Subjective Progress Note Date: 11/06/24 64 year old female with past medical history of squamous cell carcinoma of the mediastinum, COPD, atrial fibrillation presented to the ED with right-sided chest wall pain. Patient reports having right-sided chest wall/abdominal wall pain for a week now. The pain radiates to the epigastrium. She has noted worsening of the pain when she tenses the abdominal muscles or if she reaches to her right side. D enies any trauma. First she tried heating pads and Flexeril but that didn't help. Then she tried reaching out to her primary care physician as well as her oncologist. She was prescribed OxyContin, but states that is not helping with the pain. She also complains of shortness of breath all the time and a cough with greyish green sputum production. She reports epistaxis as well. Associated with that she experienced nausea and vomiting. Patient states following up with her doctor who took her off all the inhalers for COPD and the patient is also not using oxygen at home as her oxygen saturation was above 95. She also reports being allergic to NSAIDS as they cause "burning all the way through her back and feeling of food getting stuck her chest". Additionally, patient was recently admitted to the hospital in Aug 2024 for New onset atrial fibrillation. Echocardiogram done at that visit showed EF 55-60%, hyperdynamic LV, No obvious regional wall motion abnormality, mild MR. She is currently on Eliquis for anticoaguation and no rate or rhythm control medications. She denies missing any doses of Eliquis. She had a PET scan done in Jul 2024 that showed intense uptake within the mediastinal mass and some scattered areas of uptake within the thoracic vertebral bodies suspicious for metastasis as well as concern for sternal metastasis inferiorly. She also had a PEG tube placed in August 2024 due to reduced appetite during her hospitalization for new onset atrial fibrillation. She states her manages her feeds through the PEG tube in addition to having one solid meal a day orally. She had a hospice consult at her last visit but she didn't go through with it as she wasn't happy with them. CT of the chest abdomen pelvis with contrast done on October 2024 shows marked positive treatment response to large mediastinal mass with residual abnormal soft tissue present, round 1.9 cm area in the left hilum could reflect focal necrosis that was unchanged from August, new round 1.3 cm low-density focus in the medial right groin could reflect small hematoma, metastatic neoplasm felt much less likely but not entirely excluded as well as possible mild new distal uncomplicated acute colitis. She complains of a lump her groin that she just now noticed was draining. Her oncologist is aware of her thrombocytopenia and they have told her that they will maintain her platelet count above 50. Currently she is off all chemotherapy and radiation, last radiation therapy was in September. She is scheduled to have another PET scan on November 10. 11/04 - She is seen and examined at bedside this morning. No acute events overnight. This morning she is noted to being in severe pain in that same right sided chest wall area. Pulmonary embolism noted to be relatively small in size, pain likely related to malignancy. Discussed with her at length approach to pain management, and the initiation of CENTERLESS GRINDER SET UP OPERATOR pump. 11/05 - Pt is quite anxious today, speech is tangential, restless legs, with labile mood. Hgb down to 6.1, receiving PRBC transfusion. On lovenox, no evidence of bleeding. 11/06patient with acute complaint of cough with yellow sputum production. Patient also endorses some pain and tenderness on right side of back. No acute events overnight. REVIEW OF SYSTEMS: Pertinent positives and negatives noted in HPI. Physical Exam: Vital signs reviewed General: acute distress, appears at stated age Derm: warm, dry, intact Head: atraumatic, normocephalic, symmetric Cardiovascular: S1 S2 reg, no murmur Lungs: wheezing, no rhonchi, no rales, no accessory muscle use Abdominal: tender to palpation on the right chest and abdominal wall, PEG Tube with healthy looking skin surrounding area of entrance, erythema and tenderness to palpation on right flank, well-demarcated, warm to touch : lump in the right groin with clear discharge Extremities: No cyanosis, clubbing, or pedal edema. Neuro: Alert, Oriented, 4/5 strength in all 4 extremities Psych: anxious Data Received Today: Imaging: CXR independently interpreted displaying Assessment and plan Patient is a 64 year old female with past medical history of COPD, GERD, psoriasis, non-small cell lung cancer, presented to the ED with right-sided chest wall pain. #Acute pulmonary embolism, likely secondary to hypercoagulability due to history of Squamous cell carcinoma of the mediastinum -Chest CTA shows pulmonary embolism involving the second-order right lower lobe pulmonary artery, no additional filling defects, no evidence of large saddle embolism -Consider CTPA or TTE to further assess RV functional status -sPESI >1 -Heparin drip discontinued; started on Lovenox 70 mg every 12 hours, as recommended anticoagulation for cancer patients with PE, with initial dose of Lovenox given within 1 hour of discontinuing heparin drip -Started on Dilaudid CENTERLESS GRINDER SET UP OPERATOR pump, additional pain control with Percocet 7.5 2 pills every 4 hours and Dilaudid 1 mg IVP every 3 hours as needed for breakthrough pain - Discontinue CENTERLESS GRINDER SET UP OPERATOR pump, placed on fentanyl patch 75 mcg/hour every 72 hours, will use Percocet 7.53 25 every 4 hours as needed for breakthrough pain, will discharge with Narcan -Continue telemetry monitoring -Oncology note reviewed, will schedule for outpatient PET scan #. Community-acquired pneumonia #. Right flank cellulitis Patient with acute complaint of cough productive of yellow sputum CXR independently interpreted displaying Started on Rocephin 2 g IVPB every 24 hours and Zithromax 500 mg IVPB daily Procalcitonin 0.37 #Thrombocytopenia #Epistaxis -Her oncologist is aware and recommended to maintain platelet count above 50 -Monitor CBC #Hypoproteinemia and hypoalbuminemia, likely due to nutritional deficiency due to poor oral intake -Patient unable to tolerate oral intake -Patient has PEG tube, relies mostly on tube feeding boluses at home. She states she takes 6 8oz Jevity 1.5 cartons/day. 2 per/meal. States she is supposed to be trying to eat one solid meal/day by mouth but cannot tolerate much. -Bike Designer consulted #Mild hyponatremia, likely due to poor solute intake -Continue 0.9 normal saline at 75 ml/hr -Monitor BMP #Nausea and vomiting -Continue Ondansetron 4 mg IVP Q8HR PRN #Normocytic anemia -Transfuse PRBC for hemoglobin less than 7; required 1U PRBC 11/05 -Monitor CBC #Paroxysmal Atrial fibrillation with RVR, on anticoagulation, [id number] of 2 -Patient not maintained on any rate or rhythm control medications -Continue Metoprolol 25 mg PO BID -Monitor vital signs #Right groin lump, likely Seroma -CT scan done couple weeks ago showed 1.3 cm possible collection -Clear drainage now , consider Gen surg consult if getting worse. Chronic: #History of COPD, currently not on home oxygen #GERD -Continue albuterol inhaler, Duonebs, Pantoprazole 40 mg PO daily. DVT ppx: enoxaparin Code status: Full code, GOC conversation warranted, deferred at this time to oncology team F: NS 75 cc/h E: Replete as needed N: Heart healthy diet A: Ambulatory Anticipated discharge place: Pending clinical course Anticipated discharge time: Pending clinical course Dictation was produced using [employer] dictation software. please excuse any grammatical, word or spelling errors. I saw and evaluated the patient during the villeda and critical portions of this encounter, and discussed the case in detail with the resident author of this note, I agree with the Assessment and Plan, and my changes, if any, are highlighted in blue. Objective - Vital Signs Vital signs: Vital Signs Temp 98.7 F 11/06/24 07:37 Pulse 106 H 11/06/24 07:37 Resp 17 11/06/24 07:37 BP 126/70 11/06/24 07:37 Pulse Ox 96 11/06/24 07:37 FiO2 Intake & Output 11/05/24 11/06/24 11/06/24 18:59 06:59 18:59 Intake Total 283 Output Total 450 Balance -167 Intake: Blood Product 283 Rc Pheresis 2 As3 Unit 283 [id number] Output: Urine 450 Other: Voiding Method Bedside Commode Bedside Commode # Voids 1 - Labs CBC & Chem 7: 11/06/24 06:02 11/06/24 06:02 Labs: Abnormal Lab Results - Last 24 Hours (Table) 11/05/24 11/05/24 11/05/24 Range/Units 06:44 06:44 08:25 RBC 1.96 L (4.10-5.20) 10*6/uL Hgb 6.1 L* (12.0-15.0) g/dL Hct 20.1 L (37.2-46.3) % MCV 102.6 H (80.0-97.0) fL MCHC 30.3 L (32.0-37.0) g/dL Plt Count 106 L (140-440) 10*3/uL Lymphocytes # 0.53 L (0.90-5.00) 10*3/uL Sodium 132 L (137-145) mmol/L BUN 23 H (7-17) mg/dL Glucose 148 H (74-99) mg/dL POC Glucose (mg/dL) 148 H (70-110) mg/dL Crossmatch 11/05/24 11/05/24 11/05/24 Range/Units 09:42 11:23 16:23 RBC (4.10-5.20) 10*6/uL Hgb (12.0-15.0) g/dL Hct (37.2-46.3) % MCV (80.0-97.0) fL MCHC (32.0-37.0) g/dL Plt Count (140-440) 10*3/uL Lymphocytes # (0.90-5.00) 10*3/uL Sodium (137-145) mmol/L BUN (7-17) mg/dL Glucose (74-99) mg/dL POC Glucose (mg/dL) 140 H 175 H (70-110) mg/dL Crossmatch See Detail 11/05/24 11/05/24 11/05/24 Range/Units 16:44 19:56 23:35 RBC (4.10-5.20) 10*6/uL Hgb (12.0-15.0) g/dL Hct (37.2-46.3) % MCV (80.0-97.0) fL MCHC (32.0-37.0) g/dL Plt Count (140-440) 10*3/uL Lymphocytes # (0.90-5.00) 10*3/uL Sodium (137-145) mmol/L BUN (7-17) mg/dL Glucose (74-99) mg/dL POC Glucose (mg/dL) 205 H 114 H 123 H (70-110) mg/dL Crossmatch 11/06/24 11/06/24 Range/Units 03:44 06:02 RBC (4.10-5.20) 10*6/uL Hgb (12.0-15.0) g/dL Hct (37.2-46.3) % MCV (80.0-97.0) fL MCHC (32.0-37.0) g/dL Plt Count (140-440) 10*3/uL Lymphocytes # (0.90-5.00) 10*3/uL Sodium 133 L (137-145) mmol/L BUN (7-17) mg/dL Glucose 143 H (74-99) mg/dL POC Glucose (mg/dL) 143 H (70-110) mg/dL Crossmatch
--- NOTE | 2024-11-06 17:52 | CT ---
EXAMINATION TYPE: CT chest wo con DATE OF EXAM: 11/06/2024 4:57 PM COMPARISON: 11/03/2024 CLINICAL INDICATION: Female, 64 years old with history of rib pain/tenderness, right lateral 8-10th r ibs; PHH, TECHNIQUE: Multiple axial images were obtained through the chest. Sagittal and coronal reformats were created for review. MIP was performed on a separate workstation. Contrast used: mL of (None if empty) Oral contrast used: (None if empty) CT DLP: mGycm, Automated exposure control for dose reduction was used. FINDINGS: LUNGS/ PLEURA: Small right pleural effusion with associated atelectasis. Mild centrilobular emphysema changes. AIRWAY: Patent and unremarkable. HEART: Size within normal limits. No significant coronary artery calcifications. MEDIASTINUM: No gross evidence of adenopathy. VASCULATURE: No aortic aneurysm. Right chest wall [id number] tip terminating this. Vena cava/cavo atrial junction. MUSCULOSKELETAL: Acute fracture right rib 10 with mild displacement. SOFT TISSUES/LYMPH NODES: Unremarkable. LOWER NECK: No significant findings. UPPER ABDOMEN: No significant findings. PEG tube in appropriate position. IMPRESSION: 1. Acute right lateral rib 10 fracture with mild displacement. 2. Mild cardiomegaly with pulmonary vascular congestion and Small right pleural effusion with associ ated atelectasis. Correlate for congestive heart failure. 3. Mild emphysema. [facility], , 11/06/2024 5:50 PM
[2024-11-06 19:53] LABS: Glucose,Whole Blood 129 mg/dL (70-110)
[2024-11-06] MEDS: LIDOCAINE 4% PATCH TOPICAL SCH (21:28)
[2024-11-07 00:07] LABS: Glucose,Whole Blood 142 mg/dL (70-110)
[2024-11-07 04:09] LABS: Glucose,Whole Blood 139 mg/dL (70-110)
[2024-11-07 08:05] LABS: Glucose,Whole Blood 155 mg/dL (70-110)
[2024-11-07 08:24] LABS: African American GFR (CKD) >90 (>60 ml/min/1.73 sqM); Anion Gap 8 mmol/L; Blood Urea Nitrogen 12 mg/dL (7-17); Calcium 8.4 mg/dL (8.4-10.2); Carbon Dioxide 27 mmol/L (22-30); Chloride 104 mmol/L (98-107); Glucose 141 mg/dL (74-99); Magnesium 1.9 mg/dL (1.6-2.3); Non-African American GFR(CKD) >90 (>60 ml/min/1.73 sqM); Potassium 4.1 mmol/L (3.5-5.1); Sodium 139 mmol/L (137-145)
[2024-11-07 08:38] LABS: HCT 20.8 % (37.2-46.3); MCH 31.1 pg (27.0-32.0); MCHC 31.3 g/dL (32.0-37.0); MCV 99.5 fL (80.0-97.0); Mean Platelet Volume 10.1 fL (9.5-12.2); Platelet Count 143 10*3/uL (140-440); RBC 2.09 10*6/uL (4.10-5.20); RDW 21.3 % (11.5-14.5); WBC 3.35 10*3/uL (4.50-10.00)
[2024-11-07 08:40] LABS: HGB 6.5 g/dL (12.0-15.0)
[2024-11-07 09:38] LABS: Anisocytosis (M) Present; Eosinophils # (M) 0.17 k/uL (0-0.7); Hypochromasia (M) Present; Lymphocytes # (M) 0.77 k/uL (1.0-4.8); Neutrophils # (M) 2.21 k/uL (1.3-7.7); Neutrophils % (M) 66 %; Nucleated Red Blood Cells 0 /100 WBC (0-0); Total Cells Counted 100
[2024-11-07] MEDS: FUROSEMIDE 10 MG/ML 4 ML VIAL IV STA (10:56)
--- NOTE | 2024-11-07 11:30 | P.PN ---
Subjective Progress Note Date: 11/07/24 64 year old female with past medical history of squamous cell carcinoma of the mediastinum, COPD, atrial fibrillation presented to the ED with right-sided chest wall pain. Patient reports having right-sided chest wall/abdominal wall pain for a week now. The pain radiates to the epigastrium. She has noted worsening of the pain when she tenses the abdominal muscles or if she reaches to her right side. De nies any trauma. First she tried heating pads and Flexeril but that didn't help. Then she tried reaching out to her primary care physician as well as her oncologist. She was prescribed OxyContin, but states that is not helping with the pain. She also complains of shortness of breath all the time and a cough with greyish green sputum production. She reports epistaxis as well. Associated with that she experienced nausea and vomiting. Patient states following up with her doctor who took her off all the inhalers for COPD and the patient is also not using oxygen at home as her oxygen saturation was above 95. She also reports being allergic to NSAIDS as they cause "burning all the way through her back and feeling of food getting stuck her chest". Additionally, patient was recently admitted to the hospital in Aug 2024 for New onset atrial fibrillation. Echocardiogram done at that visit showed EF 55-60%, hyperdynamic LV, No obvious regional wall motion abnormality, mild MR. She is currently on Eliquis for anticoaguation and no rate or rhythm control medications. She denies missing any doses of Eliquis. She had a PET scan done in Jul 2024 that showed intense uptake within the mediastinal mass and some scattered areas of uptake within the thoracic vertebral bodies suspicious for metastasis as well as concern for sternal metastasis inferiorly. She also had a PEG tube placed in August 2024 due to reduced appetite during her hospitalization for new onset atrial fibrillation. She states her manages her feeds through the PEG tube in addition to having one solid meal a day orally. She had a hospice consult at her last visit but she didn't go through with it as she wasn't happy with them. CT of the chest abdomen pelvis with contrast done on October 2024 shows marked positive treatment response to large mediastinal mass with residual abnormal soft tissue present, round 1.9 cm area in the left hilum could reflect focal necrosis that was unchanged from August, new round 1.3 cm low-density focus in the medial right groin could reflect small hematoma, metastatic neoplasm felt much less likely but not entirely excluded as well as possible mild new distal uncomplicated acute colitis. She complains of a lump her groin that she just now noticed was draining. Her oncologist is aware of her thrombocytopenia and they have told her that they will maintain her platelet count above 50. Currently she is off all chemotherapy and radiation, last radiation therapy was in September. She is scheduled to have another PET scan on November 10. 11/04 - She is seen and examined at bedside this morning. No acute events overnight. This morning she is noted to being in severe pain in that same right sided chest wall area. Pulmonary embolism noted to be relatively small in size, pain likely related to malignancy. Discussed with her at length approach to pain management, and the initiation of INSULATION BLOWER pump. 11/05 - Pt is quite anxious today, speech is tangential, restless legs, with labile mood. Hgb down to 6.1, receiving PRBC transfusion. On lovenox, no evidence of bleeding. 11/06patient with acute complaint of cough with yellow sputum production. Patient also endorses some pain and tenderness on right side of back. No acute events overnight. 11/07 -patient seen and evaluated bedside. No acute events overnight. No current complaints. REVIEW OF SYSTEMS: Pertinent positives and negatives noted in HPI. Physical Exam: Vital signs reviewed General: acute distress, appears at stated age Derm: warm, dry, intact Head: atraumatic, normocephalic, symmetric Cardiovascular: S1 S2 reg, no murmur Lungs: Bilateral expiratory wheezing, rhonchi, no rales, no accessory muscle use Abdominal: tender to palpation on the right chest and abdominal wall, PEG Tube with healthy looking skin surrounding area of entrance, erythema and tenderness to palpation on right flank, well-demarcated, warm to touch : lump in the right groin with clear discharge Extremities: No cyanosis, clubbing, or pedal edema. Neuro: Alert, Oriented, 4/5 strength in all 4 extremities Psych: anxious Data Received Today: Labs: Hgb 6.5, MCV 99.5, platelet 143 Imaging: Chest CT showing acute right lateral rib fracture with mild displacement, mild cardiomegaly with pulmonary vascular congestion with small right pleural effusion with associated atelectasis, mild emphysema Assessment and plan Patient is a 64 year old female with past medical history of COPD, GERD, pso riasis, non-small cell lung cancer, presented to the ED with right-sided chest wall pain. #Acute pulmonary embolism, likely secondary to hypercoagulability due to history of Squamous cell carcinoma of the mediastinum -Chest CTA shows pulmonary embolism involving the second-order right lower lobe pulmonary artery, no additional filling defects, no evidence of large saddle embolism -Consider CTPA or TTE to further assess RV functional status -sPESI >1 -Heparin drip discontinued; started on Lovenox 70 mg every 12 hours, as recommended anticoagulation for cancer patients with PE, with initial dose of Lovenox given within 1 hour of discontinuing heparin drip -Started on Dilaudid INSULATION BLOWER pump, additional pain control with Percocet 7.5 2 pills every 4 hours and Dilaudid 1 mg IVP every 3 hours as needed for breakthrough pain - Discontinue INSULATION BLOWER pump, placed on fentanyl patch 75 mcg/hour every 72 hours, will use Percocet 7.53 25 every 4 hours as needed for breakthrough pain, will discharge with Narcan -Continue telemetry monitoring -Oncology note reviewed, will schedule for outpatient PET scan #. Suspected community-acquired pneumonia versus acute heart failure #. Right-sided pleural effusion #. Acute right lateral rib 10 fracture with mild displacement, unknown etiology #. Right flank cellulitis, less likely CT showing right rib fracture at the site where there is suspected cellulitis Chest CT also showing mild cardiomegaly with pulmonary vascular congestion and small right pleural effusion Ordered 40 mg IV Lasix once to see if there is improvement/rule out heart failure Patient with acute complaint of cough productive of yellow sputum has been improving CXR independently interpreted displaying right basilar patchy airspace opacities, trace pleural effusion Continue with Rocephin 2 g IVPB every 24 hours and Zithromax 500 mg IVPB daily - will discontinue if marked improvement with Lasix Procalcitonin 0.37 Ordered incentive spirometry #Normocytic anemia -Transfuse PRBC for hemoglobin less than 7; required 1U PRBC 11/05, 1 unit PRBC required on 11/07 -Likely in setting of chemo induced anemia -Monitor CBC #Thrombocytopenia #Epistaxis -Her oncologist is aware and recommended to maintain platelet count above 50 -Monitor CBC #Hypoproteinemia and hypoalbuminemia, likely due to nutritional deficiency due to poor oral intake -Patient unable to tolerate oral intake -Patient has PEG tube, relies mostly on tube feeding boluses at home. She states she takes 6 8oz Jevity 1.5 cartons/day. 2 per/meal. States she is supposed to be trying to eat one solid meal/day by mouth but cannot tolerate much. -Client Development Director consulted #Mild hyponatremia, likely due to poor solute intake -Continue 0.9 normal saline at 75 ml/hr -Monitor BMP #Nausea and vomiting -Continue Ondansetron 4 mg IVP Q8HR PRN #Paroxysmal Atrial fibrillation with RVR, on anticoagulation, [id number] of 2 -Patient not maintained on any rate or rhythm control medications -Continue Metoprolol 25 mg PO BID -Monitor vital signs #Right groin lump, likely Seroma -CT scan done couple weeks ago showed 1.3 cm possible collection -Clear drainage now , consider Gen surg consult if getting worse. Chronic: #History of COPD, currently not on home oxygen #GERD -Continue albuterol inhaler, Duonebs, Pantoprazole 40 mg PO daily. DVT ppx: enoxaparin Code status: Full code, GOC conversation warranted, deferred at this time to oncology team F: NS 75 cc/h E: Replete as needed N: Heart healthy diet A: Ambulatory Anticipated discharge place: Pending clinical course Anticipated discharge time: Pending clinical course Dictation was produced using [employer] dictation software. please excuse any grammatical, word or spelling errors. I saw and evaluated the patient during the villeda and critical portions of this encounter, and discussed the case in detail with the resident author of this note, I agree with the Assessment and Plan, and my changes, if any, are highlighted in blue. Objective - Vital Signs Vital signs: Vital Signs Temp 97.5 F L 11/07/24 03:19 Pulse 88 11/07/24 03:19 Resp 17 11/07/24 03:19 BP 99/65 11/07/24 03:19 Pulse Ox 96 11/07/24 03:19 FiO2 Intake & Output 11/06/24 11/06/24 11/07/24 06:59 18:59 06:59 Output Total 750 Balance -750 Weight 73.6 kg 72 kg Output: Urine 750 Other: Voiding Method Bedside Commode Bedside Commode Bedside Commode # Bowel Movements 1 - Labs CBC & Chem 7: 11/07/24 07:44 11/07/24 07:44 Labs: Abnormal Lab Results - Last 24 Hours (Table) 11/06/24 11/06/24 11/06/24 Range/Units 06:02 06:02 08:04 RBC 2.24 L (4.10-5.20) 10*6/uL Hgb 7.0 L (12.0-15.0) g/dL Hct 22.0 L (37.2-46.3) % MCV 98.2 H (80.0-97.0) fL MCHC 31.8 L (32.0-37.0) g/dL Plt Count 132 L (140-440) 10*3/uL Lymphocytes # 0.53 L (0.90-5.00) 10*3/uL Sodium 133 L (137-145) mmol/L Glucose 143 H (74-99) mg/dL POC Glucose (mg/dL) 137 H (70-110) mg/dL 11/06/24 11/06/24 11/06/24 Range/Units 11:54 16:15 19:51 RBC (4.10-5.20) 10*6/uL Hgb (12.0-15.0) g/dL Hct (37.2-46.3) % MCV (80.0-97.0) fL MCHC (32.0-37.0) g/dL Plt Count (140-440) 10*3/uL Lymphocytes # (0.90-5.00) 10*3/uL Sodium (137-145) mmol/L Glucose (74-99) mg/dL POC Glucose (mg/dL) 194 H 154 H 129 H (70-110) mg/dL 11/06/24 11/07/24 Range/Units 23:56 04:05 RBC (4.10-5.20) 10*6/uL Hgb (12.0-15.0) g/dL Hct (37.2-46.3) % MCV (80.0-97.0) fL MCHC (32.0-37.0) g/dL Plt Count (140-440) 10*3/uL Lymphocytes # (0.90-5.00) 10*3/uL Sodium (137-145) mmol/L Glucose (74-99) mg/dL POC Glucose (mg/dL) 142 H 139 H (70-110) mg/dL
[2024-11-07 11:55] LABS: Glucose,Whole Blood 132 mg/dL (70-110)
[2024-11-07] MEDS: ALBUTEROL NEBULIZED 2.5 MG/3 ML INHALATION PRN (15:12)
[2024-11-07 15:31] LABS: Albumin 2.8 g/dL (3.5-5.0); Bilirubin, Delta 0.2 mg/dL (0.0-0.2); Bilirubin,Unconjugated 0.2 mg/dL (0.0-1.1); Total Bilirubin 0.4 mg/dL (0.2-1.3); Total Protein 5.4 g/dL (6.3-8.2)
[2024-11-07 16:11] LABS: Glucose,Whole Blood 125 mg/dL (70-110)
[2024-11-07 18:27] LABS: Reticulocyte % 1.66 % (0.10-1.80)
--- NOTE | 2024-11-07 18:33 | P.PN ---
Subjective Progress Note Date: 11/07/24 Patient reporting pain is being controlled on current regimen. GLASSWORKER pump d/c, started on fentanyl patch and prn Percocet. CT chest showing right 10 rib fracture. Hgb 6.5, 1 unit PRBCs ordered. Pt denies any episodes of acute bleeding. Objective - Vital Signs Vital signs: Vital Signs Temp 97.6 F 11/07/24 14:01 Pulse 94 11/07/24 14:01 Resp 18 11/07/24 11:25 BP 110/62 11/07/24 14:01 Pulse Ox 94 L 11/07/24 14:01 FiO2 Intake & Output 11/06/24 11/07/24 11/07/24 18:59 06:59 18:59 Intake Total 310 Output Total 750 700 Balance -750 -390 Weight 73.6 kg 72 kg Intake: Blood Product 310 Rc As-1 Unit 310 [id number] Output: Urine 750 700 Other: Voiding Method Bedside Commode Bedside Commode Bedside Commode # Bowel Movements 1 1 - Constitutional General appearance: Present: average body habitus, no acute distress - EENT Eyes: Present: anicteric sclerae, EOMI ENT: Present: hearing grossly normal - Respiratory Details: breathing even and unlabored - Cardiovascular Details: skin warm and dry - Gastrointestinal General gastrointestinal: Present: soft. Absent: tenderness - Integumentary Integumentary: Present: pale. Absent: cyanotic, jaundiced - Musculoskeletal Musculoskeletal: Present: generalized weakness - Psychiatric Psychiatric: Present: A&O x's 3 - Labs CBC & Chem 7: 11/07/24 07:44 11/07/24 07:44 Labs: Abnormal Lab Results - Last 24 Hours (Table) 11/05/24 11/06/24 11/06/24 Range/Units 09:42 16:15 19:51 WBC (4.50-10.00) 10*3/uL RBC (4.10-5.20) 10*6/uL Hgb (12.0-15.0) g/dL Hct (37.2-46.3) % MCV (80.0-97.0) fL MCHC (32.0-37.0) g/dL Lymphocytes # (Manual) (1.0-4.8) k/uL Creatinine (0.52-1.04) mg/dL Glucose (74-99) mg/dL POC Glucose (mg/dL) 154 H 129 H (70-110) mg/dL Crossmatch See Detail 11/06/24 11/07/24 11/07/24 Range/Units 23:56 04:05 07:44 WBC 3.35 L (4.50-10.00) 10*3/uL RBC 2.09 L (4.10-5.20) 10*6/uL Hgb 6.5 L* (12.0-15.0) g/dL Hct 20.8 L (37.2-46.3) % MCV 99.5 H (80.0-97.0) fL MCHC 31.3 L (32.0-37.0) g/dL Lymphocytes # (Manual) 0.77 L (1.0-4.8) k/uL Creatinine (0.52-1.04) mg/dL Glucose (74-99) mg/dL POC Glucose (mg/dL) 142 H 139 H (70-110) mg/dL Crossmatch 11/07/24 11/07/24 11/07/24 Range/Units 07:44 08:03 11:53 WBC (4.50-10.00) 10*3/uL RBC (4.10-5.20) 10*6/uL Hgb (12.0-15.0) g/dL Hct (37.2-46.3) % MCV (80.0-97.0) fL MCHC (32.0-37.0) g/dL Lymphocytes # (Manual) (1.0-4.8) k/uL Creatinine 0.51 L (0.52-1.04) mg/dL Glucose 141 H (74-99) mg/dL POC Glucose (mg/dL) 155 H 132 H (70-110) mg/dL Crossmatch Assessment and Plan (1) Acute pulmonary embolism Current Visit: Yes Status: Acute Code(s): I26.99 - OTHER PULMONARY EMBOLISM WITHOUT ACUTE COR PULMONALE SNOMED Code(s): 153841730 (2) Anemia Current Visit: Yes Status: Acute Priority: Medium Code(s): D64.9 - ANEMIA, UNSPECIFIED SNOMED Code(s): 707509520 (3) Squamous cell carcinoma lung Current Visit: No Status: Acute Priority: High Code(s): C34.90 - MALIGNANT NEOPLASM OF UNSP PART OF UNSP BRONCHUS OR LUNG SNOMED Code(s): 352256652 Plan: 1. Acute PE 2. Chemo induced anemia and thrombocytopenia/bicytopenia 3. Chest pain 4. Stage III non-small cell lung cancer 5. Atrial fibrillation Plan: Ms. Blount is a very pleasant 64-year-old female with multiple comorbidities including A-fib on Eliquis 5 mg twice a day as well as stage III non-small cell lung cancer status post chemotherapy with concurrent radiation and planned maintenance immunotherapy who is here for chest pain, found to have acute right lung PE. - PE likely provoked due to malignancy - Unclear etiology her her pain however. Doubt pain is due to PE as she has severe pain and tenderness. Reports pain began after having coughing and felt a "pop". Pain meds have been adjusted - CT imaging to further evaluate right ribs , showing acute right lateral rib 10 fracture with mild displacement. - She seems to have failed Eliquis. She has been transitioned to Lovenox. Can continue while inpt, did discuss with patient about switching to Pradaxa upon discharge - Monitor CBC closely, she does have chemo induced anemia and thrombocytopenia with what appears to be improving thrombocytopenia. Hgb 6.5 today, additional unit PRBCs ordered. Will obtain hemolysis labs - She can follow-up for maintenance immunotherapy as previously planned outpatient - Outpatient PET scan Discussed with patient and spouse, they were agreeable to the plan. All of her questions were answered.
[2024-11-07 20:13] LABS: Basophils # (A) 0.03 10*3/uL (0.00-0.10); Basophils % (A) 0.7 %; Eosinophils # (A) 0.24 10*3/uL (0.04-0.35); Eosinophils % (A) 5.5 %; HCT 27.3 % (37.2-46.3); Lymphocytes % (A) 11.5 %; MCH 30.7 pg (27.0-32.0); MCHC 32.2 g/dL (32.0-37.0); MCV 95.1 fL (80.0-97.0); Mean Platelet Volume 10.6 fL (9.5-12.2); Monocytes # (A) 0.65 10*3/uL (0.20-1.00); Neutrophils # (A) 2.88 10*3/uL (1.80-7.70); Neutrophils % (A) 66.4 %; Platelet Count 188 10*3/uL (140-440); RBC 2.87 10*6/uL (4.10-5.20); RDW 22.5 % (11.5-14.5); WBC 4.34 10*3/uL (4.50-10.00)
[2024-11-07 20:21] LABS: HGB 8.8 g/dL (12.0-15.0)
[2024-11-07 20:25] LABS: Glucose,Whole Blood 131 mg/dL (70-110)
[2024-11-08 00:06] LABS: Glucose,Whole Blood 131 mg/dL (70-110)
[2024-11-08] MEDS: guaiFENesin-Coden 100-10MG/5ML 10 ML CUP PO PRN (00:25)
[2024-11-08 04:12] LABS: Glucose,Whole Blood 123 mg/dL (70-110)
[2024-11-08 06:22] LABS: Glucose,Whole Blood 124 mg/dL (70-110)
[2024-11-08 06:50] LABS: HCT 26.4 % (37.2-46.3); HGB 8.2 g/dL (12.0-15.0); MCH 29.8 pg (27.0-32.0); MCHC 31.1 g/dL (32.0-37.0); Mean Platelet Volume 10.3 fL (9.5-12.2); Platelet Count 201 10*3/uL (140-440); RBC 2.75 10*6/uL (4.10-5.20); RDW 22.8 % (11.5-14.5); WBC 4.21 10*3/uL (4.50-10.00)
[2024-11-08 07:14] LABS: ALT 21 U/L (4-34); AST 20 U/L (14-36); African American GFR (CKD) >90 (>60 ml/min/1.73 sqM); Albumin 2.6 g/dL (3.5-5.0); Alkaline Phosphatase 131 U/L (38-126); Anion Gap 7 mmol/L; Blood Urea Nitrogen 14 mg/dL (7-17); Calcium 8.8 mg/dL (8.4-10.2); Carbon Dioxide 28 mmol/L (22-30); Chloride 104 mmol/L (98-107); Glucose 103 mg/dL (74-99); Magnesium 1.8 mg/dL (1.6-2.3); Non-African American GFR(CKD) >90 (>60 ml/min/1.73 sqM); Potassium 4.8 mmol/L (3.5-5.1); Sodium 139 mmol/L (137-145); Total Bilirubin 0.3 mg/dL (0.2-1.3); Total Protein 5.1 g/dL (6.3-8.2)
[2024-11-08 08:35] LABS: Glucose,Whole Blood 119 mg/dL (70-110)
[2024-11-08 09:29] LABS: Eosinophils # (M) 0.34 k/uL (0-0.7); Lymphocytes # (M) 0.42 k/uL (1.0-4.8); Metamyelocytes # (M) 0.04 k/uL (0); Metamyelocytes % 1 %; Monocytes # (M) 0.42 k/uL (0-1.0); Myelocytes # (M) 0.04 k/uL (0); Myelocytes % 1 %; Neutrophils # (M) 3.03 k/uL (1.3-7.7); Neutrophils % (M) 72 %; Nucleated Red Blood Cells 0 /100 WBC (0-0); Total Cells Counted 200
[2024-11-08 09:30] LABS: Anisocytosis (M) Present
[2024-11-08 11:30] LABS: Glucose,Whole Blood 163 mg/dL (70-110)
--- NOTE | 2024-11-08 14:39 | P.PN ---
Subjective Progress Note Date: 11/08/24 64 year old female with past medical history of squamous cell carcinoma of the mediastinum, COPD, atrial fibrillation presented to the ED with right-sided chest wall pain. Patient reports having right-sided chest wall/abdominal wall pain for a week now. The pain radiates to the epigastrium. She has noted worsening of the pain when she tenses the abdominal muscles or if she reaches to her right side. De nies any trauma. First she tried heating pads and Flexeril but that didn't help. Then she tried reaching out to her primary care physician as well as her oncologist. She was prescribed OxyContin, but states that is not helping with the pain. She also complains of shortness of breath all the time and a cough with greyish green sputum production. She reports epistaxis as well. Associated with that she experienced nausea and vomiting. Patient states following up with her doctor who took her off all the inhalers for COPD and the patient is also not using oxygen at home as her oxygen saturation was above 95. She also reports being allergic to NSAIDS as they cause "burning all the way through her back and feeling of food getting stuck her chest". Additionally, patient was recently admitted to the hospital in Aug 2024 for New onset atrial fibrillation. Echocardiogram done at that visit showed EF 55-60%, hyperdynamic LV, No obvious regional wall motion abnormality, mild MR. She is currently on Eliquis for anticoaguation and no rate or rhythm control medications. She denies missing any doses of Eliquis. She had a PET scan done in Jul 2024 that showed intense uptake within the mediastinal mass and some scattered areas of uptake within the thoracic vertebral bodies suspicious for metastasis as well as concern for sternal metastasis inferiorly. She also had a PEG tube placed in August 2024 due to reduced appetite during her hospitalization for new onset atrial fibrillation. She states her manages her feeds through the PEG tube in addition to having one solid meal a day orally. She had a hospice consult at her last visit but she didn't go through with it as she wasn't happy with them. CT of the chest abdomen pelvis with contrast done on October 2024 shows marked positive treatment response to large mediastinal mass with residual abnormal soft tissue present, round 1.9 cm area in the left hilum could reflect focal necrosis that was unchanged from August, new round 1.3 cm low-density focus in the medial right groin could reflect small hematoma, metastatic neoplasm felt much less likely but not entirely excluded as well as possible mild new distal uncomplicated acute colitis. She complains of a lump her groin that she just now noticed was draining. Her oncologist is aware of her thrombocytopenia and they have told her that they will maintain her platelet count above 50. Currently she is off all chemotherapy and radiation, last radiation therapy was in September. She is scheduled to have another PET scan on November 10. 11/04 - She is seen and examined at bedside this morning. No acute events overnight. This morning she is noted to being in severe pain in that same right sided chest wall area. Pulmonary embolism noted to be relatively small in size, pain likely related to malignancy. Discussed with her at length approach to pain management, and the initiation of NUMERICAL CONTROL DRILL PRESS OPERATOR pump. 11/05 - Pt is quite anxious today, speech is tangential, restless legs, with labile mood. Hgb down to 6.1, receiving PRBC transfusion. On lovenox, no evidence of bleeding. 11/06patient with acute complaint of cough with yellow sputum production. Patient also endorses some pain and tenderness on right side of back. No acute events overnight. 11/07 -patient seen and evaluated bedside. No acute events overnight. No current complaints. 11/08 -patient seen and evaluated bedside, no acute complaints, no events overnight. REVIEW OF SYSTEMS: Pertinent positives and negatives noted in HPI. Physical Exam: Vital signs reviewed General: acute distress, appears at stated age Derm: warm, dry, intact Head: atraumatic, normocephalic, symmetric Cardiovascular: S1 S2 reg, no murmur Lungs: Bilateral expiratory wheezing, rhonchi, no rales, no accessory muscle use Abdominal: tender to palpation on the right chest and abdominal wall, PEG Tube with healthy looking skin surrounding area of entrance, erythema and tenderness to palpation on right flank, well-demarcated, warm to touch : lump in the right groin with clear discharge Extremities: No cyanosis, clubbing, or pedal edema. Neuro: Alert, Oriented, 4/5 strength in all 4 extremities Psych: anxious Data Received Today: Labs: Hgb 8.2, MCV 96, WBC 4.21, BUN 14, creatinine 0.56, total protein 5.1, albumin 2.6 Imaging: Chest CT showing acute right lateral rib fracture with mild displacement, mild cardiomegaly with pulmonary vascular congestion with small right pleural effusion with associated atelectasis, mild emphysema Assessment and plan Patient is a 64 year old female with past medical history of COPD, GERD, psoriasis, non-small cell lung cancer, presented to the ED with right-sided chest wall pain. #. Acute pulmonary embolism, likely secondary to hypercoagulability due to history of Squamous cell carcinoma of the mediastinum #. Chronic pain secondary to malignancy #. Acute hypoxic respiratory failure secondary to above -Chest CTA shows pulmonary embolism involving the second-order right lower lobe pulmonary artery, no additional filling defects, no evidence of large saddle embolism -sPESI >1 -Heparin drip discontinued; started on Lovenox 70 mg every 12 hours, as recommended anticoagulation for cancer patients with PE, with initial dose of Lovenox given within 1 hour of discontinuing heparin drip -Started on Dilaudid NUMERICAL CONTROL DRILL PRESS OPERATOR pump, additional pain control with Percocet 7.5 2 pills every 4 hours and Dilaudid 1 mg IVP every 3 hours as needed for breakthrough pain - Discontinued NUMERICAL CONTROL DRILL PRESS OPERATOR pump, placed on fentanyl patch 75 mcg/hour every 72 hours, will use Percocet 7.53 25 every 4 hours as needed for breakthrough pain, will discharge with Narcan -Continue telemetry monitoring -Oncology note reviewed, will schedule for outpatient PET scan #. Dyspnea most likely secondary to malignancy vs rib fracture #. Right-sided pleural effusion #. Acute right lateral rib 10 fracture with mild displacement, unknown etiology Rule out CAP and CHF CXR independently interpreted displaying right basilar patchy airspace opacities (atelectasis versus pneumonia), trace pleural effusion CT showing right lateral rib [address] also showing mild cardiomegaly with pulmonary vascular congestion and small right pleural effusion proBNP 450 within normal limit, no orthopnea or PND, no edema Patient febrile with no signs of infection, procalcitonin 0.37 etc. less likely for pneumonia, will discontinue antibiotics Patient was given 1 dose of IV Lasix 40 mg once with marked improvement Encouraged incentive spirometry use IV fluids discontinued #. Normocytic anemia -Transfuse PRBC for hemoglobin less than 7; required 1U PRBC 11/05, 1 unit PRBC required on 11/07 -Vomiting this morning within normal limits at 8.2 status post second unit of PRBC -Likely in setting of chemo induced anemia -Monitor CBC #Thrombocytopenia, resolved #Epistaxis -Her oncologist is aware and recommended to maintain platelet count above 50 -Monitor CBC #Hypoproteinemia and hypoalbuminemia, likely due to nutritional deficiency due to poor oral intake -Patient unable to tolerate oral intake -Patient has PEG tube, relies mostly on tube feeding boluses at home. She states she takes 6 8oz Jevity 1.5 cartons/day. 2 per/meal. States she is supposed to be trying to eat one solid meal/day by mouth but cannot tolerate much. -Fiber Optics Technician consulted #Mild hyponatremia, likely due to poor solute intake, resolved -Continue 0.9 normal saline at 75 ml/hr -Monitor BMP #Nausea and vomiting -Continue Ondansetron 4 mg IVP Q8HR PRN #Paroxysmal Atrial fibrillation with RVR, on anticoagulation, [id number] of 2 -Patient not maintained on any rate or rhythm control medications -Continue Metoprolol 25 mg PO BID -Monitor vital signs #Right groin lump, likely Seroma -CT scan done couple weeks ago showed 1.3 cm possible collection -Clear drainage now , consider Gen surg consult if getting worse. Chronic: #History of COPD, currently not on home oxygen #GERD -Continue albuterol inhaler, Duonebs, Pantoprazole 40 mg PO daily. DVT ppx: enoxaparin Code status: Full code, GOC conversation warranted, deferred at this time to oncology team Anticipated discharge place: Pending clinical course Anticipated discharge time: Likely tomorrow Dictation was produced using [employer] dictation software. please excuse any grammatical, word or spelling errors. I have seen and evaluated the patient today. Discussed with the resident and agree with the residents finding and plan as documented in the resident's note. Changes highlighted in blue font. Objective - Vital Signs Vital signs: Vital Signs Temp 98.5 F 11/08/24 04:00 Pulse 96 11/08/24 04:00 Resp 18 11/08/24 04:00 BP 116/72 11/08/24 04:00 Pulse Ox 93 L 11/08/24 04:00 FiO2 Intake & Output 11/07/24 11/08/24 11/08/24 18:59 06:59 18:59 Intake Total 310 Output Total 1900 Balance -1590 Weight 70 kg Intake: Blood Product 310 Rc As-1 Unit 310 [id number] Output: Urine 1900 Other: Voiding Method Bedside Commode Bedside Commode # Bowel Movements 1 - Labs CBC & Chem 7: 11/08/24 05:51 11/08/24 05:51 Labs: Abnormal Lab Results - Last 24 Hours (Table) 11/05/24 11/07/24 11/07/24 Range/Units 09:42 07:44 07:44 WBC 3.35 L (4.50-10.00) 10*3/uL RBC 2.09 L (4.10-5.20) 10*6/uL Hgb 6.5 L* (12.0-15.0) g/dL Hct 20.8 L (37.2-46.3) % MCV 99.5 H (80.0-97.0) fL MCHC 31.3 L (32.0-37.0) g/dL Lymphocytes # (0.90-5.00) 10*3/uL Lymphocytes # (Manual) 0.77 L (1.0-4.8) k/uL Haptoglobin (31.2-198.0) mg/dL Creatinine 0.51 L (0.52-1.04) mg/dL Glucose 141 H (74-99) mg/dL POC Glucose (mg/dL) (70-110) mg/dL Alkaline Phosphatase (38-126) U/L Total Protein (6.3-8.2) g/dL Albumin (3.5-5.0) g/dL Crossmatch See Detail 11/07/24 11/07/24 11/07/24 Range/Units 08:03 11:53 14:41 WBC (4.50-10.00) 10*3/uL RBC (4.10-5.20) 10*6/uL Hgb (12.0-15.0) g/dL Hct (37.2-46.3) % MCV (80.0-97.0) fL MCHC (32.0-37.0) g/dL Lymphocytes # (0.90-5.00) 10*3/uL Lymphocytes # (Manual) (1.0-4.8) k/uL Haptoglobin (31.2-198.0) mg/dL Creatinine (0.52-1.04) mg/dL Glucose (74-99) mg/dL POC Glucose (mg/dL) 155 H 132 H (70-110) mg/dL Alkaline Phosphatase (38-126) U/L Total Protein 5.4 L (6.3-8.2) g/dL Albumin 2.8 L (3.5-5.0) g/dL Crossmatch 11/07/24 11/07/24 11/07/24 Range/Units 14:41 16:09 19:59 WBC 4.34 L (4.50-10.00) 10*3/uL RBC 2.87 L (4.10-5.20) 10*6/uL Hgb 8.8 L D (12.0-15.0) g/dL Hct 27.3 L (37.2-46.3) % MCV (80.0-97.0) fL MCHC (32.0-37.0) g/dL Lymphocytes # 0.50 L (0.90-5.00) 10*3/uL Lymphocytes # (Manual) (1.0-4.8) k/uL Haptoglobin 364.0 H (31.2-198.0) mg/dL Creatinine (0.52-1.04) mg/dL Glucose (74-99) mg/dL POC Glucose (mg/dL) 125 H (70-110) mg/dL Alkaline Phosphatase (38-126) U/L Total Protein (6.3-8.2) g/dL Albumin (3.5-5.0) g/dL Crossmatch 11/07/24 11/08/24 11/08/24 Range/Units 20:24 00:05 04:09 WBC (4.50-10.00) 10*3/uL RBC (4.10-5.20) 10*6/uL Hgb (12.0-15.0) g/dL Hct (37.2-46.3) % MCV (80.0-97.0) fL MCHC (32.0-37.0) g/dL Lymphocytes # (0.90-5.00) 10*3/uL Lymphocytes # (Manual) (1.0-4.8) k/uL Haptoglobin (31.2-198.0) mg/dL Creatinine (0.52-1.04) mg/dL Glucose (74-99) mg/dL POC Glucose (mg/dL) 131 H 131 H 123 H (70-110) mg/dL Alkaline Phosphatase (38-126) U/L Total Protein (6.3-8.2) g/dL Albumin (3.5-5.0) g/dL Crossmatch 11/08/24 11/08/24 11/08/24 Range/Units 05:51 05:51 06:20 WBC 4.21 L (4.50-10.00) 10*3/uL RBC 2.75 L (4.10-5.20) 10*6/uL Hgb 8.2 L (12.0-15.0) g/dL Hct 26.4 L (37.2-46.3) % MCV (80.0-97.0) fL MCHC 31.1 L (32.0-37.0) g/dL Lymphocytes # (0.90-5.00) 10*3/uL Lymphocytes # (Manual) (1.0-4.8) k/uL Haptoglobin (31.2-198.0) mg/dL Creatinine (0.52-1.04) mg/dL Glucose 103 H (74-99) mg/dL POC Glucose (mg/dL) 124 H (70-110) mg/dL Alkaline Phosphatase 131 H (38-126) U/L Total Protein 5.1 L (6.3-8.2) g/dL Albumin 2.6 L (3.5-5.0) g/dL Crossmatch
[2024-11-08 16:18] LABS: Glucose,Whole Blood 119 mg/dL (70-110)
--- NOTE | 2024-11-08 18:24 | P.PN ---
Subjective Progress Note Date: 11/08/24 No acute events overnight. Patient reporting pain is being controlled on current regimen. CLOTHING MANAGER pump was d/c, started on fentanyl patch and prn Percocet. CT chest showing right 10 rib fracture. Pt is still very lethargic and easily falls asleep during conversations. Pt states pt was able to ambulate last night. Hgb today 8.2 Objective - Vital Signs Vital signs: Vital Signs Temp 98.0 F 11/08/24 16:44 Pulse 98 11/08/24 16:44 Resp 20 11/08/24 16:44 BP 125/71 11/08/24 16:44 Pulse Ox 97 11/08/24 16:44 FiO2 Intake & Output 11/07/24 11/08/24 11/08/24 18:59 06:59 18:59 Intake Total 310 Output Total 1900 Balance -1590 Weight 70 kg Intake: Blood Product 310 Rc As-1 Unit 310 [id number] Output: Urine 1900 Other: Voiding Method Bedside Commode Bedside Commode Bedside Commode # Bowel Movements 1 - Labs CBC & Chem 7: 11/08/24 05:51 11/08/24 05:51 Labs: Abnormal Lab Results - Last 24 Hours (Table) 11/07/24 11/07/24 11/07/24 Range/Units 14:41 19:59 20:24 WBC 4.34 L (4.50-10.00) 10*3/uL RBC 2.87 L (4.10-5.20) 10*6/uL Hgb 8.8 L D (12.0-15.0) g/dL Hct 27.3 L (37.2-46.3) % MCHC (32.0-37.0) g/dL Lymphocytes # 0.50 L (0.90-5.00) 10*3/uL Lymphocytes # (Manual) (1.0-4.8) k/uL Metamyelocytes # (Man) (0) k/uL Myelocytes # (Manual) (0) k/uL Haptoglobin 364.0 H (31.2-198.0) mg/dL Glucose (74-99) mg/dL POC Glucose (mg/dL) 131 H (70-110) mg/dL Alkaline Phosphatase (38-126) U/L Total Protein (6.3-8.2) g/dL Albumin (3.5-5.0) g/dL 11/08/24 11/08/24 11/08/24 Range/Units 00:05 04:09 05:51 WBC 4.21 L (4.50-10.00) 10*3/uL RBC 2.75 L (4.10-5.20) 10*6/uL Hgb 8.2 L (12.0-15.0) g/dL Hct 26.4 L (37.2-46.3) % MCHC 31.1 L (32.0-37.0) g/dL Lymphocytes # (0.90-5.00) 10*3/uL Lymphocytes # (Manual) 0.42 L (1.0-4.8) k/uL Metamyelocytes # (Man) 0.04 H (0) k/uL Myelocytes # (Manual) 0.04 H (0) k/uL Haptoglobin (31.2-198.0) mg/dL Glucose (74-99) mg/dL POC Glucose (mg/dL) 131 H 123 H (70-110) mg/dL Alkaline Phosphatase (38-126) U/L Total Protein (6.3-8.2) g/dL Albumin (3.5-5.0) g/dL 11/08/24 11/08/24 11/08/24 Range/Units 05:51 06:20 08:34 WBC (4.50-10.00) 10*3/uL RBC (4.10-5.20) 10*6/uL Hgb (12.0-15.0) g/dL Hct (37.2-46.3) % MCHC (32.0-37.0) g/dL Lymphocytes # (0.90-5.00) 10*3/uL Lymphocytes # (Manual) (1.0-4.8) k/uL Metamyelocytes # (Man) (0) k/uL Myelocytes # (Manual) (0) k/uL Haptoglobin (31.2-198.0) mg/dL Glucose 103 H (74-99) mg/dL POC Glucose (mg/dL) 124 H 119 H (70-110) mg/dL Alkaline Phosphatase 131 H (38-126) U/L Total Protein 5.1 L (6.3-8.2) g/dL Albumin 2.6 L (3.5-5.0) g/dL 11/08/24 11/08/24 Range/Units 11:27 16:15 WBC (4.50-10.00) 10*3/uL RBC (4.10-5.20) 10*6/uL Hgb (12.0-15.0) g/dL Hct (37.2-46.3) % MCHC (32.0-37.0) g/dL Lymphocytes # (0.90-5.00) 10*3/uL Lymphocytes # (Manual) (1.0-4.8) k/uL Metamyelocytes # (Man) (0) k/uL Myelocytes # (Manual) (0) k/uL Haptoglobin (31.2-198.0) mg/dL Glucose (74-99) mg/dL POC Glucose (mg/dL) 163 H 119 H (70-110) mg/dL Alkaline Phosphatase (38-126) U/L Total Protein (6.3-8.2) g/dL Albumin (3.5-5.0) g/dL Assessment and Plan (1) Acute pulmonary embolism Current Visit: Yes Status: Acute Code(s): I26.99 - OTHER PULMONARY EMBOLISM WITHOUT ACUTE COR PULMONALE SNOMED Code(s): 733892105 (2) Anemia Current Visit: Yes Status: Acute Priority: Medium Code(s): D64.9 - ANEMIA, UNSPECIFIED SNOMED Code(s): 848802160 (3) Squamous cell carcinoma lung Current Visit: No Status: Acute Priority: High Code(s): C34.90 - MALIGNANT NEOPLASM OF UNSP PART OF UNSP BRONCHUS OR LUNG SNOMED Code(s): 933962303 Plan: 1. Acute PE 2. Chemo induced anemia and thrombocytopenia/bicytopenia 3. Chest pain 4. Stage III non-small cell lung cancer 5. Atrial fibrillation Plan: Ms. Blount is a very pleasant 64-year-old female with multiple comorbidities including A-fib on Eliquis 5 mg twice a day as well as stage III non-small cell lung cancer status post chemotherapy with concurrent radiation and planned maintenance immunotherapy who is here for chest pain, found to have acute right lung PE. - PE likely provoked due to malignancy - Unclear etiology her her pain however. Doubt pain is due to PE as she has severe pain and tenderness. Reports pain began after having coughing and felt a "pop". Pain meds have been adjusted - CT imaging to further evaluate right ribs , showing acute right lateral rib 10 fracture with mild displacement. - She seems to have failed Eliquis. She has been transitioned to Lovenox. Can continue while inpt, did discuss with patient about switching to Pradaxa upon discharge - Monitor CBC closely, she does have chemo induced anemia and thrombocytopenia with what appears to be improving thrombocytopenia. Hgb 8.2 today. - Hemolysis labs negative - She can follow-up for maintenance immunotherapy as previously planned outpatient - Outpatient PET scan - Pt has been very lethargic, concern pain medications doses are too high. Pain meds have been adjusted. Will continue to follow Discussed with patient and spouse, they were agreeable to the plan. All of her questions were answered.
[2024-11-08 20:22] LABS: Glucose,Whole Blood 132 mg/dL (70-110)
[2024-11-08 20:57] LABS: HCT 26.2 % (37.2-46.3); HGB 8.2 g/dL (12.0-15.0); MCH 30.3 pg (27.0-32.0); MCHC 31.3 g/dL (32.0-37.0); MCV 96.7 fL (80.0-97.0); Mean Platelet Volume 10.3 fL (9.5-12.2); Platelet Count 226 10*3/uL (140-440); RBC 2.71 10*6/uL (4.10-5.20); WBC 4.57 10*3/uL (4.50-10.00)
[2024-11-09 00:47] LABS: Glucose,Whole Blood 114 mg/dL (70-110)
[2024-11-09 04:01] LABS: Glucose,Whole Blood 114 mg/dL (70-110)
[2024-11-09 06:30] LABS: Basophils # (A) 0.01 10*3/uL (0.00-0.10); Basophils % (A) 0.2 %; Eosinophils # (A) 0.25 10*3/uL (0.04-0.35); Eosinophils % (A) 5.1 %; HCT 26.2 % (37.2-46.3); HGB 8.2 g/dL (12.0-15.0); Lymphocytes # (A) 0.71 10*3/uL (0.90-5.00); Lymphocytes % (A) 14.6 %; MCH 30.3 pg (27.0-32.0); MCHC 31.3 g/dL (32.0-37.0); MCV 96.7 fL (80.0-97.0); Mean Platelet Volume 9.7 fL (9.5-12.2); Monocytes # (A) 0.95 10*3/uL (0.20-1.00); Monocytes % (A) 19.5 %; Neutrophils # (A) 2.89 10*3/uL (1.80-7.70); Neutrophils % (A) 59.6 %; Platelet Count 237 10*3/uL (140-440); RBC 2.71 10*6/uL (4.10-5.20); RDW 22.8 % (11.5-14.5); WBC 4.86 10*3/uL (4.50-10.00)
[2024-11-09 06:52] LABS: ALT 20 U/L (4-34); AST 16 U/L (14-36); African American GFR (CKD) >90 (>60 ml/min/1.73 sqM); Albumin 2.6 g/dL (3.5-5.0); Alkaline Phosphatase 136 U/L (38-126); Anion Gap 9 mmol/L; Blood Urea Nitrogen 14 mg/dL (7-17); Calcium 9.1 mg/dL (8.4-10.2); Carbon Dioxide 27 mmol/L (22-30); Chloride 101 mmol/L (98-107); Glucose 113 mg/dL (74-99); Magnesium 1.8 mg/dL (1.6-2.3); Non-African American GFR(CKD) >90 (>60 ml/min/1.73 sqM); Potassium 4.7 mmol/L (3.5-5.1); Sodium 137 mmol/L (137-145); Total Bilirubin 0.2 mg/dL (0.2-1.3)
[2024-11-09 07:38] LABS: Glucose,Whole Blood 129 mg/dL (70-110)
[2024-11-09 11:40] VITALS: BP 120/70; PULSE 93; RESP 18; TEMP 97.9
[2024-11-09 12:12] LABS: Glucose,Whole Blood 155 mg/dL (70-110)
[2024-11-09] MEDS: KETOROLAC 15 MG/ML 1 ML VIAL IVP STA (14:28)
[2024-11-09 14:30] VITALS: BMI 29.9
--- NOTE | 2024-11-09 14:54 | P.PN ---
Subjective Progress Note Date: 11/09/24 64 year old female with past medical history of squamous cell carcinoma of the mediastinum, COPD, atrial fibrillation presented to the ED with right-sided chest wall pain. Patient reports having right-sided chest wall/abdominal wall pain for a week now. The pain radiates to the epigastrium. She has noted worsening of the pain when she tenses the abdominal muscles or if she reaches to her right side. De nies any trauma. First she tried heating pads and Flexeril but that didn't help. Then she tried reaching out to her primary care physician as well as her oncologist. She was prescribed OxyContin, but states that is not helping with the pain. She also complains of shortness of breath all the time and a cough with greyish green sputum production. She reports epistaxis as well. Associated with that she experienced nausea and vomiting. Patient states following up with her doctor who took her off all the inhalers for COPD and the patient is also not using oxygen at home as her oxygen saturation was above 95. She also reports being allergic to NSAIDS as they cause "burning all the way through her back and feeling of food getting stuck her chest". Additionally, patient was recently admitted to the hospital in Aug 2024 for New onset atrial fibrillation. Echocardiogram done at that visit showed EF 55-60%, hyperdynamic LV, No obvious regional wall motion abnormality, mild MR. She is currently on Eliquis for anticoaguation and no rate or rhythm control medications. She denies missing any doses of Eliquis. She had a PET scan done in Jul 2024 that showed intense uptake within the mediastinal mass and some scattered areas of uptake within the thoracic vertebral bodies suspicious for metastasis as well as concern for sternal metastasis inferiorly. She also had a PEG tube placed in August 2024 due to reduced appetite during her hospitalization for new onset atrial fibrillation. She states her manages her feeds through the PEG tube in addition to having one solid meal a day orally. She had a hospice consult at her last visit but she didn't go through with it as she wasn't happy with them. CT of the chest abdomen pelvis with contrast done on October 2024 shows marked positive treatment response to large mediastinal mass with residual abnormal soft tissue present, round 1.9 cm area in the left hilum could reflect focal necrosis that was unchanged from August, new round 1.3 cm low-density focus in the medial right groin could reflect small hematoma, metastatic neoplasm felt much less likely but not entirely excluded as well as possible mild new distal uncomplicated acute colitis. She complains of a lump her groin that she just now noticed was draining. Her oncologist is aware of her thrombocytopenia and they have told her that they will maintain her platelet count above 50. Currently she is off all chemotherapy and radiation, last radiation therapy was in September. She is scheduled to have another PET scan on November 10. 11/04 - She is seen and examined at bedside this morning. No acute events overnight. This morning she is noted to being in severe pain in that same right sided chest wall area. Pulmonary embolism noted to be relatively small in size, pain likely related to malignancy. Discussed with her at length approach to pain management, and the initiation of KETTLE HAND pump. 11/05 - Pt is quite anxious today, speech is tangential, restless legs, with labile mood. Hgb down to 6.1, receiving PRBC transfusion. On lovenox, no evidence of bleeding. 11/06patient with acute complaint of cough with yellow sputum production. Patient also endorses some pain and tenderness on right side of back. No acute events overnight. 11/07 -patient seen and evaluated bedside. No acute events overnight. No current complaints. 11/08 -patient seen and evaluated bedside, no acute complaints, no events overnight. 11/09patient seen evaluated bedside. No acute complaints. No events overnight. REVIEW OF SYSTEMS: Pertinent positives and negatives noted in HPI. Physical Exam: Vital signs reviewed General: acute distress, appears at stated age Derm: warm, dry, intact Head: atraumatic, normocephalic, symmetric Cardiovascular: S1 S2 reg, no murmur Lungs: Bilateral expiratory wheezing, rhonchi, no rales, no accessory muscle use Abdominal: tender to palpation on the right chest and abdominal wall, PEG Tube with healthy looking skin surrounding area of entrance, erythema and tenderness to palpation on right flank, well-demarcated, warm to touch : lump in the right groin with clear discharge Extremities: No cyanosis, clubbing, or pedal edema. Neuro: Alert, Oriented, 4/5 strength in all 4 extremities Psych: anxious Data Received Today: Labs: WBC 4.86, Hgb 8.2, platelet 237, BUN 14, creatinine 0.5, LDH 136 Imaging: N/A Assessment and plan Patient is a 64 year old female with past medical history of COPD, GERD, psor iasis, non-small cell lung cancer, presented to the ED with right-sided chest wall pain. #. Acute pulmonary embolism, likely secondary to hypercoagulability due to history of Squamous cell carcinoma of the mediastinum #. Chronic pain secondary to malignancy #. Acute hypoxic respiratory failure secondary to above -Chest CTA shows pulmonary embolism involving the second-order right lower lobe pulmonary artery, no additional filling defects, no evidence of large saddle embolism -sPESI >1 -Heparin drip discontinued, currently on Lovenox SQ 70 mg every 12 hours, will plan to discharge on Pradaxa 150 mg PO TID -Started on Dilaudid KETTLE HAND pump, additional pain control with Percocet 7.5 2 pills every 4 hours and Dilaudid 1 mg IVP every 3 hours as needed for breakthrough pain - Discontinued KETTLE HAND pump, placed on fentanyl patch 75 mcg/hour every 72 hours, will use Percocet 7.5325 every 4 hours as needed for breakthrough pain, will discharge with Narcan -Continue telemetry monitoring -Oncology note reviewed, will schedule for outpatient PET scan #. Dyspnea most likely secondary to malignancy vs rib fracture #. Right-sided pleural effusion #. Acute right lateral rib 10 fracture with mild displacement, unknown etiology Rule out CAP and CHF CXR independently interpreted displaying right basilar patchy airspace opacities (atelectasis versus pneumonia), trace pleural effusion CT showing right lateral rib [address] also showing mild cardiomegaly with pulmonary vascular congestion and small right pleural effusion proBNP 450 within normal limit, no orthopnea or PND, no edema Patient afebrile with no signs of infection, procalcitonin 0.37 etc. less likely for pneumonia, will discontinue antibiotics Patient was given 1 dose of IV Lasix 40 mg once with marked improvement Encouraged incentive spirometry use IV fluids discontinued #. Normocytic anemia -Transfuse PRBC for hemoglobin less than 7; required 1U PRBC 11/05, 1 unit PRBC required on 11/07 -Vomiting this morning within normal limits at 8.2 status post second unit of PRBC -Likely in setting of chemo induced anemia -Monitor CBC #Thrombocytopenia, resolved #Epistaxis -Her oncologist is aware and recommended to maintain platelet count above 50 -Monitor CBC #Hypoproteinemia and hypoalbuminemia, likely due to nutritional deficiency due to poor oral intake -Patient unable to tolerate oral intake -Patient has PEG tube, relies mostly on tube feeding boluses at home. She states she takes 6 8oz Jevity 1.5 cartons/day. 2 per/meal. States she is supposed to be trying to eat one solid meal/day by mouth but cannot tolerate much. -Audio Visual Aide consulted #Mild hyponatremia, likely due to poor solute intake, resolved -Continue 0.9 normal saline at 75 ml/hr -Monitor BMP #Nausea and vomiting -Continue Ondansetron 4 mg IVP Q8HR PRN #Paroxysmal Atrial fibrillation with RVR, on anticoagulation, [id number] of 2 -Patient not maintained on any rate or rhythm control medications -Continue Metoprolol 25 mg PO BID -Monitor vital signs #Right groin lump, likely Seroma -CT scan done couple weeks ago showed 1.3 cm possible collection -Clear drainage now , consider Gen surg consult if getting worse. Will schedule appointment prior to discharge Chronic: #History of COPD, currently not on home oxygen #GERD -Continue albuterol inhaler, Duonebs, Pantoprazole 40 mg PO daily. DVT ppx: enoxaparin Code status: Full code, GOC conversation warranted, deferred at this time to oncology team Anticipated discharge place: Pending clinical course Anticipated discharge time: Possibly today pending oncology recommendation Dictation was produced using [employer] dictation software. please excuse any grammatical, word or spelling errors. I have seen and evaluated the patient today. Discussed with the resident and agree with the residents finding and plan as documented in the resident's note. Changes highlighted in blue font. Objective - Vital Signs Vital signs: Vital Signs Temp 98.2 F 11/09/24 04:00 Pulse 102 H 11/09/24 04:00 Resp 20 11/09/24 04:00 BP 105/64 11/09/24 04:00 Pulse Ox 97 11/09/24 04:00 FiO2 Intake & Output 11/08/24 11/09/24 11/09/24 18:59 06:59 18:59 Weight 81.8 kg Other: Voiding Method Bedside Commode Bedside Commode - Labs CBC & Chem 7: 11/09/24 05:34 11/09/24 05:34 Labs: Abnormal Lab Results - Last 24 Hours (Table) 11/08/24 11/08/2425 Range/Units 05:51 08:34 11:27 RBC (4.10-5.20) 10*6/uL Hgb (12.0-15.0) g/dL Hct (37.2-46.3) % MCHC (32.0-37.0) g/dL Immature Gran # (0.00-0.04) 10*3/uL Lymphocytes # (0.90-5.00) 10*3/uL Lymphocytes # (Manual) 0.42 L (1.0-4.8) k/uL Metamyelocytes # (Man) 0.04 H (0) k/uL Myelocytes # (Manual) 0.04 H (0) k/uL Creatinine (0.52-1.04) mg/dL Glucose (74-99) mg/dL POC Glucose (mg/dL) 119 H 163 H (70-110) mg/dL Alkaline Phosphatase (38-126) U/L Total Protein (6.3-8.2) g/dL Albumin (3.5-5.0) g/dL 11/08/24 11/08/24 11/08/24 Range/Units 16:15 20:11 20:21 RBC 2.71 L (4.10-5.20) 10*6/uL Hgb 8.2 L (12.0-15.0) g/dL Hct 26.2 L (37.2-46.3) % MCHC 31.3 L (32.0-37.0) g/dL Immature Gran # (0.00-0.04) 10*3/uL Lymphocytes # (0.90-5.00) 10*3/uL Lymphocytes # (Manual) (1.0-4.8) k/uL Metamyelocytes # (Man) (0) k/uL Myelocytes # (Manual) (0) k/uL Creatinine (0.52-1.04) mg/dL Glucose (74-99) mg/dL POC Glucose (mg/dL) 119 H 132 H (70-110) mg/dL Alkaline Phosphatase (38-126) U/L Total Protein (6.3-8.2) g/dL Albumin (3.5-5.0) g/dL 11/09/24 11/09/24 11/09/24 Range/Units 00:45 03:59 05:34 RBC 2.71 L (4.10-5.20) 10*6/uL Hgb 8.2 L (12.0-15.0) g/dL Hct 26.2 L (37.2-46.3) % MCHC 31.3 L (32.0-37.0) g/dL Immature Gran # 0.05 H (0.00-0.04) 10*3/uL Lymphocytes # 0.71 L (0.90-5.00) 10*3/uL Lymphocytes # (Manual) (1.0-4.8) k/uL Metamyelocytes # (Man) (0) k/uL Myelocytes # (Manual) (0) k/uL Creatinine (0.52-1.04) mg/dL Glucose (74-99) mg/dL POC Glucose (mg/dL) 114 H 114 H (70-110) mg/dL Alkaline Phosphatase (38-126) U/L Total Protein (6.3-8.2) g/dL Albumin (3.5-5.0) g/dL 11/09/24 Range/Units 05:34 RBC (4.10-5.20) 10*6/uL Hgb (12.0-15.0) g/dL Hct (37.2-46.3) % MCHC (32.0-37.0) g/dL Immature Gran # (0.00-0.04) 10*3/uL Lymphocytes # (0.90-5.00) 10*3/uL Lymphocytes # (Manual) (1.0-4.8) k/uL Metamyelocytes # (Man) (0) k/uL Myelocytes # (Manual) (0) k/uL Creatinine 0.50 L (0.52-1.04) mg/dL Glucose 113 H (74-99) mg/dL POC Glucose (mg/dL) (70-110) mg/dL Alkaline Phosphatase 136 H (38-126) U/L Total Protein 5.0 L (6.3-8.2) g/dL Albumin 2.6 L (3.5-5.0) g/dL
--- NOTE | 2024-11-09 16:15 | P.DS ---
Providers Date of admission: 11/03/24 22:35 Discharge Diagnosis: Acute pulmonary embolism, likely secondary to hypercoagulability due to history of Squamous cell carcinoma of the mediastinum Chronic pain secondary to malignancy Acute hypoxic respiratory failure secondary to above Dyspnea most likely secondary to malignancy vs rib fracture Right-sided pleural effusion Acute right lateral rib 10 fracture with mild displacement, unknown etiology Normocytic anemia Thrombocytopenia Epistaxis Hypoproteinemia and hypoalbuminemia likely due to nutritional deficiency due to poor oral oral intake Mild hyponatremia likely due to poor solute intake Nausea vomiting Paroxysmal atrial fibrillation with RVR on anticoagulation, [id number] of 2 Right groin lump, likely seroma COPD not not on home oxygen, not in acute exacerbation GERD Hospital Course: 64 year old female with past medical history of squamous cell carcinoma of the mediastinum, COPD not on home oxygen, atrial fibrillation presented to the ED with right-sided chest wall pain. Patient reports having right-sided chest wall/abdominal wall pain for a week now. The pain radiates to the epigastrium. She has noted worsening of the pain when she tenses the abdominal muscles or if she reaches to her right side. Denies any trauma. First she tried heating pads and Flexeril but that didn't help. Then she tried reaching out to her primary care physician as well as her oncologist. She was prescribed OxyContin, but states that is not helping with the pain. She also complains of shortness of breath all the time and a cough with greyish green sputum production. She reports epistaxis as well. Associated with that she experienced nausea and vomiting. Patient states following up with her doctor who took her off all the inhalers for COPD and the patient is also not using oxygen at home as her oxygen saturation was above 95. She also reports being allergic to NSAIDS as they cause "burning all the way through her back and feeling of food getting stuck her chest". Additionally, patient was recently admitted to the hospital in Aug 2024 for New onset atrial fibrillation. Echocardiogram done at that visit showed EF 55-60%, hyperdynamic LV, No obvious regional wall motion abnormality, mild MR. She is currently on Eliquis for anticoaguation and no rate or rhythm control medications. She denies missing any doses of Eliquis. She had a PET scan done in Jul 2024 that showed intense uptake within the mediastinal mass and some scattered areas of uptake within the thoracic vertebral bodies suspicious for metastasis as well as concern for sternal metastasis inferiorly. She also had a PEG tube placed in August 2024 due to reduced appetite during her hospitalization for new onset atrial fibrillation. She states her manages her feeds through the PEG tube in addition to having one solid meal a day orally. She had a hospice consult at her last visit but she didn't go through with it as she wasn't happy with them. CT of the chest abdomen pelvis with contrast done on October 2024 shows marked positive treatment response to large mediastinal mass with residual abnormal soft tissue present, round 1.9 cm area in the left hilum could reflect focal necrosis that was unchanged from August, new round 1.3 cm low-density focus in the medial right groin could reflect small hematoma, metastatic neoplasm felt much less likely but not entirely excluded as well as possible mild new distal uncomplicated acute colitis. She complains of a lump her groin that she just now noticed was draining. Her oncologist is aware of her thrombocytopenia and they have told her that they will maintain her platelet count above 50. Currently she is off all chemotherapy and radiation, last radiation therapy was in September. She is scheduled to have another PET scan on November 10. Patient mated for further evaluation and treatment for acute pulmonary embolism. Oncology was consulted on case. This morning she is noted to being in severe pain in that same right sided chest wall area. Pulmonary embolism noted to be relatively small in size, pain likely related to malignancy. Discussed with her at length approach to pain management, and the initiation of COMPLIANCE DIRECTOR pump. Pain was controlled with COMPLIANCE DIRECTOR pump, but ultimately discontinued with fentanyl patch and Percocet for breakthrough pain. Heparin was discontinued for subcutaneous Lovenox. Patient previously failed being on Eliquis and will be put on Pradaxa upon discharge. While admitted patient had acute complaint of right thoracic pain. CT imaging displayed acute right lateral rib 10 fracture with mild displacement. Oncology evaluated and does not believe it was related to her malignancy. Patient being discharged with Dilaudid and lidocaine patch as well as anticoagulation. Be sent home on 2 L of home oxygen. Patient cleared by all specialties. Patient will follow-up with her PCP, oncology for PET scan, and to follow-up with general surgery regarding seroma. She can be discharged home today. Patient seen and examined at bedside. Vital signs reviewed and stable. Physical examination: Vital signs reviewed General: acute distress, appears at stated age Derm: warm, dry, intact Head: atraumatic, normocephalic, symmetric Cardiovascular: S1 S2 reg, no murmur Lungs: Mild bilateral expiratory wheezing, rhonchi, no rales, no accessory muscle use Abdominal: tender to palpation on the right chest and abdominal wall, PEG Tube with healthy looking skin surrounding area of entrance, right groin seroma : lump in the right groin with clear discharge Extremities: No cyanosis, clubbing, or pedal edema. Neuro: Alert, Oriented, 4/5 strength in all 4 extremities Psych: anxious A total of greater than 30 minutes of time were spent preparing this complex discharge summary. Patient was discharge on November 09, 2024 at 10:11 AM. Rosalina Chaney MD PGY-1 IM Dictation was produced using [employer] dictation software. please excuse any grammatical, word or spelling errors. I have seen and evaluated the patient today. Discussed with the resident and agree with the residents finding and plan as documented in the resident's note. Changes highlighted in blue font. Expected date of discharge: 11/09/24 Attending physician: Mcikey Gasca MD Consults: 11/03/24 22:33 Consult Physician Routine Consulting Provider: Zulma Wooten Consult Reason/Comments: your patient. Acute pulmonary embolism Do you want consulting provider notified?: Yes Primary care physician: Sosa Galvin Patient Condition at Discharge: Fair Plan - Discharge Summary Discharge Rx Participant: No New Discharge Prescriptions: New Lidocaine 4% Patch 1 patch TOPICAL DAILY #14 patch Metoprolol Tartrate [Lopressor] 25 mg PO BID #90 tab fentaNYL 50MCG/HR PATCH [Duragesic 50MCG/HR] 1 patch TRANSDERM Q72H #5 patch Dabigatran [Pradaxa] 150 mg PO BID #90 capsule Naloxone HCl [Narcan] 4 mg NASAL ONCE #1 each Continue Amitriptyline HCl 25 mg PO HS Albuterol Inhaler [Ventolin Hfa Inhaler] 2 puff INHALATION RT-Q4H PRN PRN Reason: Shortness Of Breath Prochlorperazine [Compazine] 10 mg PO Q6H PRN PRN Reason: Nausea Midodrine [ProAmatine] 5 mg PO BID PRN PRN Reason: SBP below 90 Pantoprazole [Protonix] 40 mg PO BID Durvalumab [Imfinzi] 1,500 mg IV Q28D Cetirizine HCl 10 mg PO DAILY oxyCODONE-APAP 5-325MG [Percocet 5-325 mg] 1 tab PO QID PRN PRN Reason: Pain Discontinued Apixaban [Eliquis] 5 mg PO BID #120 tab Discharge Medication List Albuterol Inhaler [Ventolin Hfa Inhaler] 2 puff INHALATION RT-Q4H PRN 02/04/24 [History] Amitriptyline HCl 25 mg PO HS 02/04/24 [History] Cetirizine HCl 10 mg PO DAILY 02/04/24 [History] Prochlorperazine [Compazine] 10 mg PO Q6H PRN 08/15/24 [History] oxyCODONE-APAP 5-325MG [Percocet 5-325 mg] 1 tab PO QID PRN 08/31/24 [History] Midodrine [ProAmatine] 5 mg PO BID PRN 11/04/24 [History] Pantoprazole [Protonix] 40 mg PO BID 11/04/24 [History] Durvalumab [Imfinzi] 1,500 mg IV Q28D 11/06/24 [History] Dabigatran [Pradaxa] 150 mg PO BID #90 capsule 11/09/24 [Rx] Lidocaine 4% Patch 1 patch TOPICAL DAILY #14 patch 11/09/24 [Rx] Metoprolol Tartrate [Lopressor] 25 mg PO BID #90 tab 11/09/24 [Rx] Naloxone HCl [Narcan] 4 mg NASAL ONCE #1 each 11/09/24 [Rx] fentaNYL 50MCG/HR PATCH [Duragesic 50MCG/HR] 1 patch TRANSDERM Q72H #5 patch 11/09/24 [Rx] Follow up Appointment(s)/Referral(s): Zulma Wooten MD [STAFF PHYSICIAN] - 11/13/24 2:15 pm Sosa Galvin MD [Primary Care Provider] - 11/29/24 9:00 am [facility] Visiting Nurse, [NON-STAFF] - 1 Week Bhupinder Kaminski MD [STAFF PHYSICIAN] - 1 Week Patient Instructions/Handouts: Pulmonary Embolism (DC), Anemia (DC) Activity/Diet/Wound Care/Special Instructions: Follow up with PCP and oncology. Discharge Disposition: HOME SELF-CARE
--- NOTE | 2024-11-09 17:54 | P.PN ---
Subjective Progress Note Date: 11/09/24 No acute events overnight. Patient reporting pain is being controlled on current regimen with decrease in fentanyl patch dose. Pt is more alert. Denies n/v. Had BM yesterday. Plan is for discharge today Objective - Vital Signs Vital signs: Vital Signs Temp 97.9 F 11/09/24 11:38 Pulse 93 11/09/24 11:38 Resp 18 11/09/24 11:38 BP 120/70 11/09/24 11:38 Pulse Ox 97 11/09/24 11:38 FiO2 Intake & Output 11/08/24 11/09/24 11/09/24 18:59 06:59 18:59 Weight 81.8 kg Other: Voiding Method Bedside Commode Bedside Commode Bedside Commode - Constitutional General appearance: Present: average body habitus, no acute distress - EENT Eyes: Present: anicteric sclerae, EOMI ENT: Present: hearing grossly normal - Respiratory Details: breathing is even and unlabored - Cardiovascular Details: skin warm and dry - Gastrointestinal General gastrointestinal: Present: soft. Absent: tenderness - Integumentary Integumentary: Absent: cyanotic, jaundiced - Musculoskeletal Musculoskeletal: Present: generalized weakness - Psychiatric Psychiatric: Present: A&O x's 3 - Labs CBC & Chem 7: 11/09/24 05:34 11/09/24 05:34 Labs: Abnormal Lab Results - Last 24 Hours (Table) 11/08/24 11/08/24 11/08/24 Range/Units 16:15 20:11 20:21 RBC 2.71 L (4.10-5.20) 10*6/uL Hgb 8.2 L (12.0-15.0) g/dL Hct 26.2 L (37.2-46.3) % MCHC 31.3 L (32.0-37.0) g/dL Immature Gran # (0.00-0.04) 10*3/uL Lymphocytes # (0.90-5.00) 10*3/uL Creatinine (0.52-1.04) mg/dL Glucose (74-99) mg/dL POC Glucose (mg/dL) 119 H 132 H (70-110) mg/dL Alkaline Phosphatase (38-126) U/L Total Protein (6.3-8.2) g/dL Albumin (3.5-5.0) g/dL 11/09/24 11/09/24 11/09/24 Range/Units 00:45 03:59 05:34 RBC 2.71 L (4.10-5.20) 10*6/uL Hgb 8.2 L (12.0-15.0) g/dL Hct 26.2 L (37.2-46.3) % MCHC 31.3 L (32.0-37.0) g/dL Immature Gran # 0.05 H (0.00-0.04) 10*3/uL Lymphocytes # 0.71 L (0.90-5.00) 10*3/uL Creatinine (0.52-1.04) mg/dL Glucose (74-99) mg/dL POC Glucose (mg/dL) 114 H 114 H (70-110) mg/dL Alkaline Phosphatase (38-126) U/L Total Protein (6.3-8.2) g/dL Albumin (3.5-5.0) g/dL 11/09/24 11/09/24 11/09/24 Range/Units 05:34 07:36 12:10 RBC (4.10-5.20) 10*6/uL Hgb (12.0-15.0) g/dL Hct (37.2-46.3) % MCHC (32.0-37.0) g/dL Immature Gran # (0.00-0.04) 10*3/uL Lymphocytes # (0.90-5.00) 10*3/uL Creatinine 0.50 L (0.52-1.04) mg/dL Glucose 113 H (74-99) mg/dL POC Glucose (mg/dL) 129 H 155 H (70-110) mg/dL Alkaline Phosphatase 136 H (38-126) U/L Total Protein 5.0 L (6.3-8.2) g/dL Albumin 2.6 L (3.5-5.0) g/dL Assessment and Plan (1) Acute pulmonary embolism Status: Acute Code(s): I26.99 - OTHER PULMONARY EMBOLISM WITHOUT ACUTE COR PULMONALE SNOMED Code(s): 951386046 (2) Anemia Status: Acute Priority: Medium Code(s): D64.9 - ANEMIA, UNSPECIFIED SNOMED Code(s): 393168288 (3) Squamous cell carcinoma lung Status: Acute Priority: High Code(s): C34.90 - MALIGNANT NEOPLASM OF UNSP PART OF UNSP BRONCHUS OR LUNG SNOMED Code(s): 297506050 Plan: 1. Acute PE 2. Chemo induced anemia and thrombocytopenia/bicytopenia 3. Chest pain 4. Stage III non-small cell lung cancer 5. Atrial fibrillation Plan: Ms. Blount is a very pleasant 64-year-old female with multiple comorbidities including A-fib on Eliquis 5 mg twice a day as well as stage III non-small cell lung cancer status post chemotherapy with concurrent radiation and planned ma intenance immunotherapy who is here for chest pain, found to have acute right lung PE. - PE likely provoked due to malignancy - Unclear etiology her her pain however. Doubt pain is due to PE as she has severe pain and tenderness. Reports pain began after having coughing and felt a "pop". Pain meds have been adjusted - CT imaging to further evaluate right ribs , showing acute right lateral rib 10 fracture with mild displacement. - She seems to have failed Eliquis. She has been transitioned to Lovenox. Can continue while inpt, did discuss with patient about switching to Pradaxa upon discharge - Monitor CBC closely, she does have chemo induced anemia and thrombocytopenia with what appears to be improving thrombocytopenia. Hgb 8.2 today. - Hemolysis labs negative - She will follow-up for maintenance immunotherapy as previously planned outpatient - PET scan scheduled for 11/10/24 - Pt has been very lethargic, concern pain medications doses are too high. Pain meds have been adjusted, reporting good pain control on current regimen. Pt less lethargic. Will continue with Fentanyl 50mcg patch and percocet 10mg for breakthrough pain and continue to taper down pain meds in the outpt setting. Discussed plan with patient and spouse, they were agreeable to the plan. All of her questions were answered.
== END 2024-11-09 15:13 | disposition home or self-care (01) | DRG 175 ==
LOC: EC 19:07 → 3SCARD 22:35
PROVIDERS: ADMIT Internal Medicine; ATTEND Internal Medicine
PROC: 30233N1 Transfusion of Nonautologous Red Blood Cells into Peripheral Vein, Percutaneous Approach (ICD-10-PCS; principal; 2024-11-05)
PROC: 6A550Z0 Pheresis of Erythrocytes, Single (ICD-10-PCS; 2024-11-06)
DX: I26.99 Other pulmonary embolism without acute cor pulmonale (principal); J96.01 Acute respiratory failure with hypoxia; C34.90 Malignant neoplasm of unspecified part of unspecified bronchus or lung; E87.1 Hypo-osmolality and hyponatremia; J44.0 Chronic obstructive pulmonary disease with (acute) lower respiratory infection; E77.8 Other disorders of glycoprotein metabolism; D69.59 Other secondary thrombocytopenia; J90 Pleural effusion, not elsewhere classified; D64.81 Anemia due to antineoplastic chemotherapy; S22.31XA Fracture of one rib, right side, initial encounter for closed fracture; D68.69 Other thrombophilia; L03.311 Cellulitis of abdominal wall; I48.0 Paroxysmal atrial fibrillation; Z93.1 Gastrostomy status; E88.09 Other disorders of plasma-protein metabolism, not elsewhere classified; H91.91 Unspecified hearing loss, right ear; R04.0 Epistaxis; E63.9 Nutritional deficiency, unspecified; K21.9 Gastro-esophageal reflux disease without esophagitis; G89.3 Neoplasm related pain (acute) (chronic); S70.11XA Contusion of right thigh, initial encounter; R11.2 Nausea with vomiting, unspecified; T45.1X5A Adverse effect of antineoplastic and immunosuppressive drugs, initial encounter; D75.89 Other specified diseases of blood and blood-forming organs; Z87.891 Personal history of nicotine dependence; Z79.01 Long term (current) use of anticoagulants; Z79.899 Other long term (current) drug therapy; Z96.641 Presence of right artificial hip joint; Z88.6 Allergy status to analgesic agent; Z92.3 Personal history of irradiation
CPT/HCPCS: 36415; 71045; 71046; 71250; 71275; 80048; 80053; 80076; 82607; 82746; 83010; 83615; 83735; 83880; 83921; 84145; 84439; 84443; 84481; 84484; 85025; 85027; 85045; 85610; 85730; 86850; 86900; 86901; 86920; 87636; 93005; 93308; 93970; 94640; 94760; 96365; 96375; 96376; 99291

== ENCOUNTER → 2024-11-10 | Outpatient (CLI) | payer MEDICARE | END | disposition home or self-care (01) | LOC: RADPETMAIN 12:58 | PROVIDERS: ATTEND Radiology Radiation Oncology | DX: Z53.9 Procedure and treatment not carried out, unspecified reason (principal) ==

== ENCOUNTER → 2024-11-16 | Outpatient (CLI) | payer MEDICARE ==
--- NOTE | 2024-11-21 14:58 | PE ---
EXAMINATION TYPE: PET CT fusion skull to thigh DATE OF EXAM: 11/17/2024 COMPARISON: CT chest 11/06/2024 Prior PET/CT: 07/28/2024 CLINICAL INDICATION: Female, 64 years old with history of C34.11 LUNG CANCER, TECHNIQUE: Following the intravenous administration of 8.0 mCi of F-18 FDG, whole body images are pe rformed PET CT fusion skull to thigh. Images are reviewed on the computer in the coronal, axial, and sagittal planes. Reconstructed rotating images are created on independent workstation and reviewed on the computer. A localization and attenuation correction CT is performed in conjunction with the PET scan. DLP: 1021 mGycm SCAN: Subsequent Blood glucose: 97 mg/dL Average Mediastinum SUV: 1.9 Average Liver SUV: 2.4 FINDINGS: NECK: There is large right supraclavicular enlarged lymph node, image 54, SUV 13.58. A superior medi astinal lymph node is present, image 55, SUV 11.18. THORAX: There is a punctate area of increased density within the posterior right apex, image 57, SUV 3.17 suspicious for tiny metastasis. There is increased uptake within enlarged left hilar lymph node with SUV of 4.79, image 81. Couple of smaller left perihilar lymph nodes are present example image 80, SUV 6.34, image 81, SUV 3.23. ABDOMEN: Hepatic metastasis is present anterior right lobe liver, image 2016, SUV 21.79. Note is made of some inflammatory change at the insertion of the PEG tube. PELVIS: There is a ring-enhancing lesion within the right inguinal region may be a metastatic lymph n ode, image 227, SUV 5.5. OSSEOUS STRUCTURES: Some mild increased uptake is within the lower thoracic vertebral body, image 87, SUV 5.2 marked increased uptake is within the thoracic vertebral body, image 103, SUV 6.24. There is increased uptake within the posterior lateral right lower rib, image 112, SUV 11.2. Subtle uptake ma y be within the xiphoid process, image 22, SUV 4.05. There is marked increased uptake within the L1 v ertebral body, image 1:30, SUV 15.41. There is a focus of radiotracer within the right sacral alar, i mage 175, SUV 12.9 mild are scattered areas of increased uptake are within the bilateral iliac wings. There is uptake within the lesser trochanter left hip, image 233, SUV 7.8. Some posterior femoral co rtical uptake may be present on the proximal left. Note is made of some uptake at the level of the ri ght hip. This could be related to prosthesis placement or metastasis. LOCALIZATION CT: Appears to be a large 2.2 cm supraclavicular node on the right. Superior mediastinal node measuring 1.3 cm is present on the right. There is a small right pleural effusion there are enl arged right hilar lymph nodes. COMPARISON: There is been significant improvement of the superior mediastinal mass. Right supraclavi cular, left mediastinal lymph node metastasis are new. Osseous metastases are more clearly evident on the current examination. The hepatic metastasis is new. IMPRESSION: 1. Significant improvement of the right superior mediastinal and lung mass. 2. Superior mediastinal, left hilar, right supraclavicular adenopathy appears to be new metastatic le sions. 3. Hepatic uptake appears to be a new metastatic lesion. 4. Multiple areas of uptake within osseous structures notably thoracic and lumbar spine, right screw machine hand ior lateral rib, sacrum and pelvis appear new or increasing in uptake from comparison. 5. Tiny posterior right upper lobe punctate area of uptake could be a metastatic lesion. [facility], , 11/21/2024 2:56 PM
== END | disposition home or self-care (01) ==
LOC: RADPETMAIN 13:41
PROVIDERS: ATTEND Radiology Radiation Oncology
DX: C34.11 Malignant neoplasm of upper lobe, right bronchus or lung (principal); C77.1 Secondary and unspecified malignant neoplasm of intrathoracic lymph nodes; R93.7 Abnormal findings on diagnostic imaging of other parts of musculoskeletal system; R91.8 Other nonspecific abnormal finding of lung field; Z87.891 Personal history of nicotine dependence; R59.0 Localized enlarged lymph nodes
CPT/HCPCS: 78815; A9552

== ENCOUNTER 2024-11-18 17:41 | Emergency (ER) | payer MEDICARE ==
--- NOTE | 2024-11-18 18:35 | ED ---
GI Bleed HPI - General Chief complaint: GI Bleed Stated complaint: Blood in stool/port issues Time Seen by Provider: 11/18/24 17:57 Source: patient, RN notes reviewed Mode of arrival: ambulatory Limitations: no limitations - History of Present Illness Initial comments: This is a 64-year-old female history including squamous cell carcinoma of the mediastinum, COPD, A-fib, PE, PEG tube and stage III non-small cell lung cancer presenting with for black tarry stool x 3 days. Patient notes that she has been having painless, sticky stool with bowel movements. Patient endorses use of dabigatran. States she was recently hospitalized on 11/03/2024 for 6 days following discovery of a small right-sided PE associated with malignancy. Jamey guzmán states she is currently having constant nonradiating left-sided chest pain (04/27). Patient states she is currently bed/wheelchair-bound. states he has been performing PEG tube dressing changes twice weekly when patient showers but has been performing dressing change daily for the past several days due to thick green discharge coming from ostomy site. Patient states she is scheduled for immunotherapy next week. Patient denies fever, chills, dizziness, pleuritic chest pain, dyspnea/SOB, abdominal pain, nausea/vomiting, urinary symptoms. MD complaint: melena Onset/Timin -: days(s) Severity scale (1-10): 10 (Left rib pain) Quality: painless Context: blood thinners, other (GI tube) - Related Data Home Medications Medication Instructions Recorded Confirmed Albuterol Inhaler [Ventolin Hfa 2 puff INHALATION RT-Q4H PRN 02/04/24 11/04/24 Inhaler] Amitriptyline HCl 25 mg PO HS 02/04/24 11/04/24 Cetirizine HCl 10 mg PO DAILY 02/04/24 11/04/24 Prochlorperazine [Compazine] 10 mg PO Q6H PRN 08/15/24 11/04/24 oxyCODONE-APAP 5-325MG [Percocet 1 tab PO QID PRN 08/31/24 11/04/24 5-325 mg] Midodrine [ProAmatine] 5 mg PO BID PRN 11/04/24 11/04/24 Pantoprazole [Protonix] 40 mg PO BID 11/04/24 11/04/24 Durvalumab [Imfinzi] 1,500 mg IV Q28D 11/06/24 11/06/24 Previous Rx's Medication Instructions Recorded Dabigatran [Pradaxa] 150 mg PO BID #90 capsule 11/09/24 Lidocaine 4% Patch 1 patch TOPICAL DAILY #14 patch 11/09/24 Metoprolol Tartrate [Lopressor] 25 mg PO BID #90 tab 11/09/24 Naloxone HCl [Narcan] 4 mg NASAL ONCE #1 each 11/09/24 fentaNYL 50MCG/HR PATCH [Duragesic 1 patch TRANSDERM Q72H #5 patch 11/09/24 50MCG/HR] Allergies Allergy/AdvReac Type Severity Reaction Status Date / Time lactose Allergy Unknown Verified 11/18/24 17:47 mold Allergy Unknown Verified 11/18/24 17:47 nickel Allergy Rash/Hives Verified 11/18/24 17:47 NSAIDS (Non-Steroidal AdvReac ACID REFLUX Verified 11/18/24 17:47 Anti-Inflamma dust Allergy Unknown Uncoded 11/18/24 17:47 Review of Systems ROS Statement: Those systems with pertinent positive or pertinent negative responses have been documented in the HPI. ROS Other: All systems not noted in ROS Statement are negative. Past Medical History Past Medical History: Cancer, COPD, GERD/Reflux, Hearing Disorder / Deafness, Pneumonia, Skin Disorder Additional Past Medical History / Comment(s): psoriatic arthritis, right ear deaf, psoriasis hands feet. squmaous cell chest History of Any Multi-Drug Resistant Organisms: None Reported Past Surgical History: Back Surgery, Breast Surgery, Cholecystectomy, Joint Replacement, Orthopedic Surgery, Tubal Ligation Additional Past Surgical History / Comment(s): R hip replacement January 2024. 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, arthroscopy bilateral knees, left foot bone spur, ablation to back , injections to back, breast bx left, titanium tag, egd ,colonoscopy Past Anesthesia/Blood Transfusion Reactions: No Reported Reaction Additional Past Anesthesia/Blood Transfusion Reaction / Comment(s): no blood transfusion Past Psychological History: ADD/ADHD, Anxiety Smoking Status: Former smoker Past Alcohol Use History: Occasional Past Drug Use History: None Reported General Exam Limitations: no limitations General appearance: alert, in no apparent distress Head exam: Present: atraumatic, normocephalic, normal inspection Eye exam: Present: normal appearance, PERRL, EOMI. Absent: scleral icterus, conjunctival injection, periorbital swelling ENT exam: Present: normal exam, mucous membranes moist Neck exam: Present: normal inspection. Absent: tenderness, meningismus, lymphadenopathy Respiratory exam: Present: normal lung sounds bilaterally, chest wall tenderness. Absent: respiratory distress, wheezes, rales, rhonchi, stridor, accessory muscle use, decreased breath sounds, prolonged expiratory Cardiovascular Exam: Present: regular rate, normal rhythm, normal heart sounds. Absent: systolic murmur, diastolic murmur, rubs, gallop, clicks GI/Abdominal exam: Present: soft, distended, normal bowel sounds, other (PEG tube dressing new without obvious discharge or bleeding at this time. Some dried green purulent discharge noted on plastic shield pressing against skin.). Absent: tenderness, guarding, rebound, rigid Extremities exam: Present: normal inspection, full ROM, normal capillary refill, other (Bilateral posterior tibialis pulse +1). Absent: tenderness, pedal edema, joint swelling, calf tenderness Back exam: Present: normal inspection Neurological exam: Present: alert, oriented X3, CN II-XII intact Psychiatric exam: Present: normal affect, normal mood Skin exam: Present: warm, dry, intact, normal color. Absent: rash Course Vital Signs 11/18/24 11/18/24 17:45 19:22 Temperature 98 F Pulse Rate 110 H 105 H Respiratory 18 20 Rate Blood Pressure 93/54 102/45 O2 Sat by Pulse 95 Oximetry Medical Decision Making - Medical Decision Making Was pt. sent in by a medical professional or institution (, PA, ADMISSIONS ASSISTANT, urgent care, hospital, or retirement...) When possible be specific @ -No Did you speak to anyone other than the patient for history (EMS, parent, family, police, friend...)? What history was obtained from this source @ -No Did you review nursing and triage notes (agree or disagree)? Why? @ -I reviewed and agree with nursing and triage notes Were old charts reviewed (outside hosp., previous admission, EMS record, old EKG, old radiological studies, urgent care reports/EKG's, retirement records)? Report findings @ -Charts from prior admission starting on 11/03/2024 when patient was diagnosed with right PE reviewed with discharge noted on 11/09/2024. Differential Diagnosis (chest pain, altered mental status, abdominal pain women, abdominal pain men, vaginal bleeding, weakness, fever, dyspnea, syncope, headache, dizziness, GI bleed, back pain, seizure, CVA, palpatations, mental health, musculoskeletal)? @ -Differential GI Bleed: Esophageal varices, aortoenteric fistula, Aidee-Hahn, gastritis, peptic ulcer disease, diverticulosis, inflammatory bowel disease, hemorrhoids, fissure, colitis, malignancy, Meckel's diverticulum, this is not meant to be an all- inclusive list. EKG interpreted by me (3pts min.). @ -Sinus tachycardia without ST deviation and T wave inversion in anteroseptal leads. Ventricular rate 105 bpm, JUDITH 151 ms, QRS 72 ms, QTc 407 ms. X-rays interpreted by me (1pt min.). @ -CXR shows small right pleural effusion with blunting of the right costophrenic angle. No focal consolidation. CT interpreted by me (1pt min.). @ -Abdomen/pelvic CTA shows no evidence of GI hemorrhage with scattered metastatic disease similar to prior PET/CT on 11/16/2024. PEG tube in appropriate position. U/S interpreted by me (1pt. min.). @ -None done What testing was considered but not performed or refused? (CT, X-rays, U/S, labs)? Why? @ -None What meds were considered but not given or refused? Why? @ -None Did you discuss the management of the patient with other professionals (professionals i.e. , PA, ADMISSIONS ASSISTANT, lab, RT, psych nurse, social group worker, methods analyst data processing, teacher, homicide squad commanding officer, case mgr)? Give summary @ -Spoke to Dr. Bruno from general surgery who advised transfer due to critically low hemoglobin. Spoke to Dr. Machado from [facility] who accepted patient transfer. Was smoking cessation discussed for >3mins.? @ -No Was critical care preformed (if so, how long)? @ -No Were there social determinants of health that impacted care today? How? (Homelessness, low income, unemployed, alcoholism, drug addiction, transportation, low edu. Level, literacy, decrease access to med. care, custodial, rehab)? @ -No Was there de-escalation of care discussed even if they declined (Discuss DNR or withdrawal of care, Hospice)? DNR status @ -No What co-morbidities impacted this encounter? (DM, HTN, Smoking, COPD, CAD, Cancer, CVA, ARF, Chemo, Hep., AIDS, mental health diagnosis, sleep apnea, morbid obesity)? @ -Non-small cell lung CA Was patient admitted / discharged? Hospital course, mention meds given and route, prescriptions, significant lab abnormalities, going to OR and other pertinent info. @ -Lab work shows anemia with hemoglobin 5.8, leukocytosis 32.02 with left shift, platelets 608. PTT 34.3, D-dimer 2.27 with history of lung CA. Hyponatremia 135, hyperkalemia 5.2, BUN 27 with otherwise normal kidney function and transaminase. Hyperglycemia 122, protein 5.3, albumin 2.6. CXR shows small right pleural effusion with blunting of the right costophrenic angle. No focal consolidation. Abdomen/pelvic CTA shows no evidence of GI hemorrhage with scattered metastatic disease similar to prior PET/CT on 11/16/2024. PEG tube in appropriate position. Patient initially provided IV normal saline, Pepcid, Protonix, morphine and p.o. Tylenol with pain relief noted by patient. Patient started on PRBC and additional morphine provided for breakthrough pain. Spoke to Dr. Bruno from general surgery who advised transfer due to significantly low hemoglobin. Spoke to Dr. Machado from [facility] who accepted patient. Discussed patient with Dr. Watlon. Undiagnosed new problem with uncertain prognosis? @ -No Drug Therapy requiring intensive monitoring for toxicity (Heparin, Nitro, Insulin, Cardizem)? @ -No Were any procedures done? @ -No Diagnosis/symptom? @ -Gastrointestinal hemorrhage, anemia Acute, or Chronic, or Acute on Chronic? @ -Acute Uncomplicated (without systemic symptoms) or Complicated (systemic symptoms)? @ -Complicated Side effects of treatment? @ -No Exacerbation, Progression, or Severe Exacerbation? @ -No Poses a threat to life or bodily function? How? (Chest pain, USA, ME, pneumonia, PE, COPD, DKA, ARF, appy, cholecystitis, CVA, Diverticulitis, Homicidal, Suicidal, threat to staff... and all critical care pts) @ -Gastrointestinal bleeding, exsanguination - Lab Data Result diagrams: 11/18/24 19:09 11/18/24 19:09 Lab Results 11/18/24 11/18/24 11/18/24 Range/Units 19:09 19:09 19:09 WBC 32.02 H (4.50-10.00) 10*3/uL RBC 1.94 L (4.10-5.20) 10*6/uL Hgb 5.8 L* D (12.0-15.0) g/dL Hct 18.5 L* (37.2-46.3) % MCV 95.4 (80.0-97.0) fL MCH 29.9 (27.0-32.0) pg MCHC 31.4 L (32.0-37.0) g/dL Plt Count 608 H D (140-440) 10*3/uL MPV 9.1 L (9.5-12.2) fL Immature Gran % (Auto) 2.6 % Neutrophils % (Manual) 82 % Lymphocytes % (Manual) 6 % Monocytes % (Manual) 12 % Immature Gran # 0.82 H (0.00-0.04) 10*3/uL Neutrophils # (Manual) 26.26 H (1.3-7.7) k/uL Lymphocytes # (Manual) 1.92 (1.0-4.8) k/uL Monocytes # (Manual) 3.84 H (0-1.0) k/uL Nucleated RBCs 0 (0-0) /100 WBC Manual Slide Review Performed Polychromasia Present Anisocytosis (manual) Present PT 11.9 (10.0-12.5) sec INR 1.1 (<1.2) APTT 34.3 H (22.0-30.0) sec D-Dimer 2.27 H (<0.60) mg/L FEU Sodium 135 L (137-145) mmol/L Potassium 5.2 H (3.5-5.1) mmol/L Chloride 99 (98-107) mmol/L Carbon Dioxide 29 (22-30) mmol/L Anion Gap 7 mmol/L BUN 27 H (7-17) mg/dL Creatinine 0.64 (0.52-1.04) mg/dL Est GFR (CKD-EPI)AfAm >90 (>60 ml/min/1.73 sqM) Est GFR (CKD-EPI)NonAf >90 (>60 ml/min/1.73 sqM) Glucose 122 H (74-99) mg/dL Calcium 8.9 (8.4-10.2) mg/dL Total Bilirubin 0.1 L (0.2-1.3) mg/dL AST 19 (14-36) U/L ALT 10 (4-34) U/L Alkaline Phosphatase 123 (38-126) U/L Troponin I (0.000-0.034) ng/mL Total Protein 5.3 L (6.3-8.2) g/dL Albumin 2.6 L (3.5-5.0) g/dL Blood Type Blood Type Recheck Bld Type Recheck Status Antibody Screen Crossmatch Spec Expiration Date 11/18/24 11/18/24 Range/Units 19:09 20:13 WBC (4.50-10.00) 10*3/uL RBC (4.10-5.20) 10*6/uL Hgb (12.0-15.0) g/dL Hct (37.2-46.3) % MCV (80.0-97.0) fL MCH (27.0-32.0) pg MCHC (32.0-37.0) g/dL Plt Count (140-440) 10*3/uL MPV (9.5-12.2) fL Immature Gran % (Auto) % Neutrophils % (Manual) % Lymphocytes % (Manual) % Monocytes % (Manual) % Immature Gran # (0.00-0.04) 10*3/uL Neutrophils # (Manual) (1.3-7.7) k/uL Lymphocytes # (Manual) (1.0-4.8) k/uL Monocytes # (Manual) (0-1.0) k/uL Nucleated RBCs (0-0) /100 WBC Manual Slide Review Polychromasia Anisocytosis (manual) PT (10.0-12.5) sec INR (<1.2) APTT (22.0-30.0) sec D-Dimer (<0.60) mg/L FEU Sodium (137-145) mmol/L Potassium (3.5-5.1) mmol/L Chloride (98-107) mmol/L Carbon Dioxide (22-30) mmol/L Anion Gap mmol/L BUN (7-17) mg/dL Creatinine (0.52-1.04) mg/dL Est GFR (CKD-EPI)AfAm (>60 ml/min/1.73 sqM) Est GFR (CKD-EPI)NonAf (>60 ml/min/1.73 sqM) Glucose (74-99) mg/dL Calcium (8.4-10.2) mg/dL Total Bilirubin (0.2-1.3) mg/dL AST (14-36) U/L ALT (4-34) U/L Alkaline Phosphatase (38-126) U/L Troponin I <0.012 (0.000-0.034) ng/mL Total Protein (6.3-8.2) g/dL Albumin (3.5-5.0) g/dL Blood Type O Positive Blood Type Recheck O Pos Bld Type Recheck Status No Antibody Screen NEGATIVE Crossmatch See Detail Spec Expiration Date 11/21/20242312 Disposition Clinical Impression: Melena, Gastrointestinal hemorrhage, Anemia Disposition: OTHER INSTITUTION NOT DEFINED Condition: Stable Is patient prescribed a controlled substance at d/c from ED?: No Referrals: Sosa Galvin MD [Primary Care Provider] - 1-2 days Time of Disposition: 21:24 - Out of Hospital Transfer - Req. Specs Out of Hospital Transfer - Requested Specifics: Other Emergency Center ([facility])
[2024-11-18] MEDS: PANTOPRAZOLE 40 MG/10 ML VIAL IVP STA (19:13)
[2024-11-18] MEDS: SODIUM CHLORIDE 0.9% 1,000 ML IV STA (19:13)
[2024-11-18] MEDS: ACETAMINOPHEN TAB 500 MG TAB PO STA (19:15)
[2024-11-18] MEDS: MORPHINE SULFATE 4 MG/ML SYRINGE IVP STA ×2 (19:15→21:49)
[2024-11-18] MEDS: FAMOTIDINE 20 MG/2 ML VIAL IV STA (19:15)
[2024-11-18 19:28] LABS: MCH 29.9 pg (27.0-32.0); MCHC 31.4 g/dL (32.0-37.0); MCV 95.4 fL (80.0-97.0); Mean Platelet Volume 9.1 fL (9.5-12.2); Platelet Count 608 10*3/uL (140-440); RBC 1.94 10*6/uL (4.10-5.20); RDW 21.2 % (11.5-14.5); WBC 32.02 10*3/uL (4.50-10.00)
[2024-11-18 19:37] LABS: HCT 18.5 % (37.2-46.3); HGB 5.8 g/dL (12.0-15.0)
[2024-11-18 19:40] LABS: INR 1.1 (<1.2); Partial Thromboplastin Time 34.3 sec (22.0-30.0); Prothrombin Time 11.9 sec (10.0-12.5)
[2024-11-18 20:01] LABS: ALT 10 U/L (4-34); AST 19 U/L (14-36); African American GFR (CKD) >90 (>60 ml/min/1.73 sqM); Albumin 2.6 g/dL (3.5-5.0); Alkaline Phosphatase 123 U/L (38-126); Anion Gap 7 mmol/L; Blood Urea Nitrogen 27 mg/dL (7-17); Calcium 8.9 mg/dL (8.4-10.2); Carbon Dioxide 29 mmol/L (22-30); Chloride 99 mmol/L (98-107); Glucose 122 mg/dL (74-99); Non-African American GFR(CKD) >90 (>60 ml/min/1.73 sqM); Potassium 5.2 mmol/L (3.5-5.1); Sodium 135 mmol/L (137-145); Total Bilirubin 0.1 mg/dL (0.2-1.3); Total Protein 5.3 g/dL (6.3-8.2)
[2024-11-18 20:21] LABS: Anisocytosis (M) Present; Lymphocytes # (M) 1.92 k/uL (1.0-4.8); Monocytes # (M) 3.84 k/uL (0-1.0); Neutrophils # (M) 26.26 k/uL (1.3-7.7); Neutrophils % (M) 82 %; Nucleated Red Blood Cells 0 /100 WBC (0-0); Polychromasia Present; Total Cells Counted 100
--- NOTE | 2024-11-18 21:19 | XR ---
EXAMINATION TYPE: XR chest 2V DATE OF EXAM: 11/18/2024 8:53 PM COMPARISON: Chest radiographs from 11/06/2024 CLINICAL INDICATION: Female, 64 years old with history of Left-sided chest pain; TECHNIQUE: XR chest 2V Frontal and lateral views of the chest. FINDINGS: Lungs/Pleura: Blunting of the right costophrenic angle. There is no evidence of left pleural effusio n, focal consolidation, or pneumothorax Pulmonary vascularity: Unremarkable. Heart/mediastinum: Cardiomediastinal silhouette is unremarkable. Musculoskeletal: No acute osseous pathology. Other findings: None Lines/Tubes: Right internal jugular central venous catheter with distal tip at the cavoatrial junction. IMPRESSION: Small right pleural effusion. [facility], , 11/18/2024 9:17 PM
--- NOTE | 2024-11-18 21:54 | CT ---
EXAMINATION TYPE: CT angio abdomen pelvis DATE OF EXAM: 11/18/2024 9:28 PM COMPARISON: Pet/CT 11/16/2024. CLINICAL INDICATION: Female, 64 years old with history of Melena, anemia; PHH, Pt comes to with co mplaint of GI bleed. pt having black tar like stool for the last 3 days. Pt does take blood thinners. TECHNIQUE: CT angio abdomen pelvis Multiple thin slice sub-millimeter images were obtained before and after administration of contrast. 3-D reconstructed images and maximum intensity projection images were obtained on a separate works tation. CT angio abdomen pelvis CT Contrast: Contrast used:100ml mL of Isovue 370 with IV Contrast, Oral contrast used: without Oral Contrast None CT DLP: 1651.6 mGycm, Automated exposure control for dose reduction was used. FINDINGS: CTA Abdomen and pelvis: The abdominal aorta does not demonstrate aneurysmal dilatation. Atherosclero tic back is identified within the abdominal aorta. The origins of the superior mesenteric artery, re nal arteries, inferior mesenteric artery, and celiac axis are patent. The iliac vessels are normal i n morphology LOWER CHEST: Small right pleural effusion with associated atelectasis. Right lateral rib mass similar to prior PET/CT with and rib 10 and remains present. LIVER: Peripherally enhancing 16 mm lesion in the right hepatic lobe similar to prior PET/CT. GALLBLADDER AND BILE DUCTS: The gallbladder is surgically absent. PANCREAS: Unremarkable. SPLEEN: Unremarkable. ADRENAL GLANDS: Unremarkable. KIDNEYS AND URETERS: No evidence of hydronephrosis or renal calculus. The ureters are unremarkable. PELVIS BLADDER: Unremarkable REPRODUCTIVE: Unremarkable. ABDOMEN & PELVIS STOMACH AND BOWEL: Evaluation of the gastrointestinal tract demonstrates no evidence of high density hemorrhage on arterial phase or pooling of blood on delayed phases. No evidence of bowel obstruction. PEG tube in appropriate position. Few scattered colonic diverticula. PERITONEUM: No evidence of pneumoperitoneum or free fluid. VASCULATURE: No evidence of aortic aneurysm. MUSCULOSKELETAL: No acute osseous abnormalities, right hip arthroplasty appears intact. Metastatic le omer within the right sacrum remains present. LYMPH NODES: No gross evidence for lymphadenopathy. SOFT TISSUE/ABDOMINAL WALL: Right inguinal 21 mm cystic lesion as seen on prior PET/CT. IMPRESSION: 1. No evidence for gastrointestinal hemorrhage. 2. Scattered metastatic disease similar to prior PET/CT 11/16/2024. 3. Colonic diverticulosis. 4. PEG tube in appropriate position. [facility], , 11/18/2024 9:52 PM
[2024-11-18 23:01] VITALS: TEMP 98.9
[2024-11-19 03:13] VITALS: BP 113/76; PULSE 107; RESP 19
== END 2024-11-18 23:00 | disposition other institution (70) ==
LOC: EC 17:41
DX: K92.1 Melena (principal); K92.2 Gastrointestinal hemorrhage, unspecified; D64.9 Anemia, unspecified; Z87.891 Personal history of nicotine dependence; Z88.6 Allergy status to analgesic agent; Z91.011 Allergy to milk products; Z91.048 Other nonmedicinal substance allergy status; Z77.120 Contact with and (suspected) exposure to mold (toxic)
CPT/HCPCS: 99285 ×2; 96374 ×2; 96375 ×2; 96376 ×2; 96361 ×2; 36415; 93005; 86900; 86901; 85379; 80053; 84484; 85025; 85610; 85730; 86850; 86920; 71046; 74174; 36430; P9016; J2270; Q9967; J2470; J1308